=== PATIENT | female | born 1955 | race Caucasian/White ===

== ENCOUNTER 2020-03-28 12:12 | Inpatient (IN) | payer MEDICARE, OTHER, SELFPAY ==
[2020-03-28] VITALS (11 sets, daily range): BP systolic 97–129; BP diastolic 62–91; PULSE 71–134; RESP 17–23; TEMP 36.4–36.7; O2SAT 92–95; BMI 39.9
--- NOTE | ~2020-03-28 | CT_ITS ---
EXAMINATION: CTA chest PE protocol EXAM DATE: 03/28/2020 14:02 INDICATION: Pleuritic chest pain, atrial fibrillation with RVR. Breast cancer. TECHNIQUE: Spiral CTA of the chest (pulmonary arteries) was performed with 100 cc Omnipaque 350 intr avenous contrast injection. Images were acquired during the pulmonary arterial phase. Coronal maxi mum intensity projection 3D-reconstructions were created by the technologist on dedicated workstation . Axial, coronal and sagittal reformatted images were reviewed. The dose-length product (DLP) for t his examination was 853.54 mGy-cm. The exposure was tailored according to patient size (auto mA exp osure control), and iterative reconstruction (ASIR) was used as additional dose reduction technique. Comparison is made to prior examination from 06/05/2017. FINDINGS: Pulmonary arteries are well opacified and without intraluminal filling defects. No thora cic aortic dissection. The lungs are clear. Moderate size pericardial effusion. There is trace lef t pleural effusion. Some lingular, left lower lobe subsegmental atelectasis. No confluent consolidati on. Tracheobronchial tree is patent. There is no mediastinal, hilar or axillary lymphadenopathy. There is no pneumothorax. There is moderate cardiomegaly. There is mild coronary arterial calcific ation, arterial sclerosis. Mild splenic flexure colonic diverticulosis. Small amount of ascites. Ther e is a 7 mm sclerotic focus within the T6 vertebral body. There is a 4 mm sclerotic focus in the ster num. Sternal sclerotic focus appears unchanged compared to 2017, and the T6 focus is slightly larger, marianela uring 5 mm on prior study. No new sclerotic regions identified. Compared to 2017, the pericardial eff usion has developed. There is been significant improvement in bilateral dependent atelectasis. Ascite s has developed. IMPRESSION: 1. No pulmonary emboli. 2. Moderate cardiomegaly, moderate pericardial effusion. 3. Trace left pleural effusion and left basilar subsegmental atelectasis. 4. Two small osseous sclerotic foci, one unchanged and one slightly larger, probably bone islands. D ifficult to exclude slow-growing osteoblastic disease given history of breast cancer. Reviewed, dictated and finalized at location A. IMPRESSION: 1. No pulmonary emboli. 2. Moderate cardiomegaly, moderate pericardial effusion. 3. Trace left pleural effusion and left basilar subsegmental atelectasis. 4. Two small osseous sclerotic foci, one unchanged and one slightly larger, pr obably bone islands. Difficult to exclude slow-growing osteoblastic disease giv en history of breast cancer.
--- NOTE | ~2020-03-28 | XR_ITS ---
XR chest 2V DATE: 03/28/2020 12:44 INDICATION: Chest heaviness and pain. Atrial fibrillation. TECHNIQUE: PA and lateral views COMPARISON: 06/07/2017 PA and lateral chest FINDINGS: There is a globular enlarged cardiac silhouette suggesting cardiomyopathy/cardiomegaly; per icardial effusion is not excluded. There is aortic calcification and mild unfolding. No pulmonary infiltrate or consolidation or pleural effusion or pneumothorax is evident. Pulmonary va scularity appears borderline, with redistribution, suggesting mild pulmonary venous hypertension. The enlarged cardiac silhouette and the pulmonary vascular redistribution are new since 06/07/2017. Surgical clips overlie the right lower chest and right breast. Osteopenia is suggested. There is degenerative spurring of the thoracic and lumbar spine. IMPRESSION: Interval enlargement of the cardiac silhouette and pulmonary vascular distention suggesti ng cardiomegaly, mild congestive heart failure Pericardial effusion is not excluded Aortic atherosclerosis Reviewed, dictated and finalized at location B. IMPRESSION: Interval enlargement of the cardiac silhouette and pulmonary vascul ar distention suggesting cardiomegaly, mild congestive heart failure Pericardial effusion is not excluded Aortic atherosclerosis
--- NOTE | 2020-03-28 12:22 | ECG_ITS ---
Measurements Intervals [place] Rate: 128 P: DC: 0 QRS: -85 QRSD: 89 T: 65 QT: 287 QTc: 419 Interpretive Statements ATRIAL FIBRILLATION WITH RAPID VENTRICULAR RESPONSE VENTRICULAR PREMATURE COMPLEX LEFT AXIS DEVIATION LOW QRS VOLTAGE- DIFFUSE LEADS POOR R WAVE PROGRESSION, CONSIDER ANTERIOR INFARCT BORDERLINE T WAVE ABNORMALITY- HIGH LATERAL LEADS ABNORMAL ECG Electronically Signed On 03-28-2020 12:40:10 CDT by Gustavo Sousa D.O.
--- NOTE | 2020-03-28 12:27 | ED.ARRPALP ---
HPI - Arrhythmia/Palpitations General Chief Complaint: Arrhythmia/Palpitations Stated Complaint: new onset a-fib sent from cardiac rehab Time Seen by Provider: 03/28/20 12:27 Source: patient Mode of arrival: ambulatory Limitations: no limitations History of Present Illness HPI narrative: Patient is a 64-year-old female who presents for evaluation of palpitations. Patient reportedly was going to get a stress test this morning, and was found to be tachycardic, and atrial fibrillation at the time she was checked up to the monitor, so stress test did not proceed, and patient was sent to our emergency department for assessment. Patient has reported shortness of breath over the past week, left lower leg swelling, and a white chest pain in the center of her chest. She does report pain taking a deep breath. She denies fever or productive cough. No congestion, rhinorrhea, sore throat, loss of taste or sense of smell. Afebrile. 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 She states her primary care physician Dr. Song is who had arranged a stress test for her. Patient is not on any anticoagulation. Related Data Home Medications Medication Instructions Recorded Confirmed gabapentin 100 mg capsule 100 mg PO TID 01/10/20 01/10/20 sertraline 25 mg tablet 25 mg PO DAILY 01/10/20 01/10/20 Allergies Allergy/AdvReac Type Severity Reaction Status Date / Time lisinopril Allergy Unknown Hives Verified 03/28/20 12:32 Review of Systems Review of Systems: Narrative: CONSTITUTIONAL: Denies fever, chills, or sweats. EYES: Denies visual changes, redness, or discharge. ENT: Denies rhinorrhea, congestion, sore throat, or otalgia. CARDIOVASCULAR: Reports chest pain, palpitations, reports lower leg edema, left greater than right RESPIRATORY: Reports dry cough and shortness of breath GASTROINTESTINAL: Denies abdominal pain, nausea, vomiting, or diarrhea. GENITOURINARY: Denies dysuria or hematuria. SKIN: Denies rash or itching. MUSCULOSKELETAL: Denies back pain, joint pain, or myalgia. NEUROLOGIC: Denies headache, numbness, or weakness. [facility] Past Medical History Medical History Arthritis Cancer Depression Diabetes H/O thyroid disease Hypertension Obesity Surgical History Surgical History H/O lumpectomy right breast, 05/2009 H/O tubal ligation 06/1978 History of hip replacement right, 05/2017 Social History Social History Social History: 16.9 ounces of caffeine per day per demographic sheet Smoking packs per day: 2 Smoking cigarettes per day: 40.0 Years smoked: 20 Smoking pack-years: 40.00 Smoking status: Former smoker Second hand tobacco smoke exposure: Yes Smoking end date: 09/07/91 Alcohol intake: never Substance use: never Gender identity (if verbalized by the patient): Female Exam Narrative: Exam Narrative: GENERAL: Awake, alert, conversant HEAD: Normocephalic, atraumatic. EYES: PERRLA and EOMI. ENT: Nares clear, no rhinorrhea or epistaxis. Mucous membranes moist. NECK: Supple. CHEST: No respiratory distress, breathing even and non labored, crackles bilaterally HEART: Tachycardic rate, atrial fibrillation with RVR, irregular rhythm ABDOMEN: Obese, non distended, non tender EXTREMITIES: Normal range of motion. Pitting edema 2+ to the knee on the left, 1+ midshin on the right SKIN: Warm, dry, no rash. NEURO:No focal deficits. Alert and oriented x3 Course Vital Signs Vital signs: Vital Signs Temperature 36.7 C 03/28/20 12:16 Pulse Rate 122 H 03/28/20 12:16 Respiratory Rate 20 03/28/20 12:16 Blood Pressure 129/91 H 03/28/20 12:16 Pulse Oximetry 95 03/28/20 12:16 Temperature 36.7 C 03/28/20 12:16 Pulse Rate 107 H 03/28/20 14:45 Respiratory Rate 23 H 03/28/20 14:45 Blood Pressure 112/87 0
[2020-03-28] MEDS: ASPIRIN 81 MG CHEWABLE TABLET 324 MG PO (12:31)
[2020-03-28 12:43] LABS: Basophils Percent Auto 0.4 % (0.2-1.2); Eosinophils Absolute Auto 0.1 K/mm3 (0-0.3); Hemoglobin 13.4 g/dL (12.0-15.0); Immature Granulocyte Absolute 0.08 K/mm3 (0.00-0.031); Immature Granulocyte Percent A 0.8 % (0-0.5); Lymphocytes Absolute Auto 1.39 K/mm3 (0.9-3.2); Lymphocytes Percent Auto 13.8 % (18.3-44.2); Mean Corpuscular HGB Conc 31.2 g/dl (32-36); Mean Corpuscular Hemoglobin 30.5 pg (26-34); Mean Corpuscular Volume 97.9 fl (80-100); Mean Platelet Volume 10.8 fl (7.4-10.4); Monocytes Percent Auto 9.9 % (2.6-8.5); Neutrophils Absolute Auto 7.5 K/mm3 (1.3-6.7); Neutrophils Percent Auto 74.1 % (45.5-73.1); Platelet Count Result 157 k/mm3 (150-375); Red Blood Count 4.39 M/mm3 (4.2-5.4); Red Cell Distribution Width 12.8 % (11.5-14.5); White Blood Count 10.1 K/mm3 (4.5-10.0)
[2020-03-28 12:54] LABS: Anion Gap 14.2 mmol/L (7-16); Blood Urea Nitrogen 19 mg/dL (7-17); Calcium 8.6 mg/dL (8.4-10.2); Carbon Dioxide 20 mmol/L (22-30); Chloride 106 mmol/L (98-107); Estimated CRCL calculation 118 ml/min; Estimated Glomerular Filt Rate > 60; Glucose 169 mg/dL (65-105); Potassium 4.2 mmol/L (3.4-5.0); Sodium 136 mmol/L (137-145)
[2020-03-28 12:55] LABS: INR 1.2; Prothrombin Time 15.2 Seconds (11.1-14.7)
[2020-03-28 12:56] LABS: Partial Thromboplastin Time 25.1 SECONDS (22.3-36.8)
[2020-03-28 13:05] LABS: Troponin I 0.021 ng/mL (0.000-0.034)
[2020-03-28] MEDS: dilTIAZem HCl INJ 25 MG/5 ML VIAL 10 MG IV PUSH (14:10)
[2020-03-28] MEDS: FUROSEMIDE INJ 40 MG/4 ML VIAL 20 MG IV PUSH ×2 (15:08→18:05)
[2020-03-28 15:31] LABS: NT Pro B Type Natriuretic Pept 2210 PG/ML (5-100)
--- NOTE | 2020-03-28 15:42 | PM.CNCAR ---
Assessment and Plan Assessment and plan (1) Atrial fibrillation with rapid ventricular response: Code(s): I48.91 - Unspecified atrial fibrillation Status: Acute Assessment and Plan: uncertain length of duration but at least several weeks worth of atrial fibrillation and probably much longer. Will increase her diltiazem drip to 10 milligrams/hour. 2D echocardiogram Doppler will be ordered. I am going to also resume her metoprolol succinate 50 mg daily. Anticoagulation the form of enoxaparin 1 milligram/kilogram q.12 hours for now and transition to oral anticoagulation before discharge. Check a TSH and free T4 level (2) Hypertension associated with diabetes: Code(s): E11.59 - Type 2 diabetes mellitus with other circulatory complications; I10 - Essential (primary) hypertension Status: Acute (3) Hyperlipidemia associated with type 2 diabetes mellitus: Code(s): E11.69 - Type 2 diabetes mellitus with other specified complication; E78.5 - Hyperlipidemia, unspecified Status: Acute Assessment and Plan: Continue statin (4) CHF (congestive heart failure): Code(s): I50.9 - Heart failure, unspecified Status: Acute Assessment and Plan: uncertain etiology at this point. Possibly systolic and tachycardic induced versus Ischemic versus other. continue metoprolol, telmisartan. furosemide 40 mg IV x1 (5) MARIA LUISA (obstructive sleep apnea): Code(s): G47.33 - Obstructive sleep apnea (adult) (pediatric) Status: Acute Assessment and Plan: eventually needs treatment of her sleep apnea. This is highly important given her atrial fibrillation history History of Present Illness History of Present Illness Consult date/time: 03/28/20 15:42 Requesting physician: Karmen Hill MD Consult reason: atrial fibrillation Reason For Visit: A fib with rvr/heart failure Narrative: Date of service 03/28/2020 Reason for admission / consultation: Atrial fibrillation History: Patient is a 64-year-old female who came to the emergency room from our office today as she was found to be in atrial fibrillation with rapid ventricular response and she was being evaluated for a stress test. Over the past couple of weeks she has been progressively more short of breath. She thinks she has been quite short of breath since around March 10. She was treated with a combination of antibiotics, inhaler and did not have any improvement. Her symptoms have progressed to the point of shortness of breath with mild activity even walking around her house. She has also noticed some swelling in her feet over the past couple of months. Swelling in her feet is worse than the left leg rather than the right. She also has been having some paroxysmal nocturnal dyspnea. She has chest pain also she lays flat and she has a feeling of heaviness on her chest if she lays down flat on her back. This has been ongoing for the past couple of months. She therefore sleeps on her side. Sometimes she does feel heart pounding especially over the past couple of weeks if she is active. She has not passed out or had any presyncopal episodes. It is Review of Systems Review of Systems: All systems reviewed & are unremarkable except as noted in HPI and below Constitutional: Constitutional: Reports weakness Eyes: Eyes: Denies blurry vision ENT: Denies Normal hearing present Cardiovascular: Cardiovascular: Reports chest pain Respiratory: Respiratory: Reports dyspnea and Reports dyspnea on exertion Gastrointestinal: Gastrointestinal: Denies abdominal pain and Reports bloating Genitourinary: Genitourinary: Denies flank pain Musculoskeletal: Musculoskeletal: Denies back pain and Denies neck pain Integumentary/Breasts: Skin/Breast: Denies erythema and Denies rash Neurologic: Denies headache(s) and Denies numbness Psychiatric: Psychiatric: Denies anxiety and Denies confusion Endocrine: Endocrine: Denies fat
[2020-03-28 15:45] LABS: Troponin I 0.025 ng/mL (0.000-0.034)
--- NOTE | 2020-03-28 16:12 | ADMGEN ---
This patient, Karly Jon, was admitted to IMU Room 203-01. Patient/family oriented to hospital policies and general routines including ID bracelet, bed and alarms, visiting hours, pain management, procedures, bathroom and other care routines, personal items, smoking policy, room service/diet, and visiting hours. Valuables list has been completed. Information on how to activate the Rapid Response Team has been discussed. Patient/Family are encouraged to report perceived risks to care and to ask questions if they do not understand what they are told or what they should do.
[2020-03-28] MEDS: ENOXAPARIN 120 MG/0.8 ML SYRINGE 110 MG SUB-Q (18:05)
[2020-03-28 19:30] LABS: Troponin I 0.033 ng/mL (0.000-0.034)
--- NOTE | 2020-03-28 19:48 | PM.IMHP ---
H&P: HPI History of Present Illness Chief complaint: A fib with rvr/heart failure Narrative: This is a pleasant 64 year old morbidly obese Diabetic female with known hypothyroidism, previous breast cancer, and HTN who presented to the ER after being found to be tachycardic today during a nuclear stress test. She has had chest heaviness and worsening shortness of breath for over a month now. She has noticed intermittent increased LE swelling as well. Her PCP evluated her on March 16 and prescribed a Zpac for her at that time which did not relieve her symptoms. She denies any fevers, chills or significant coughing. The patient has no previous history of CAD or heart failure. She was evaluated in the ER today and found to be in rapid atrial fibrillation. Cardiology has been consulted and has intiated Cardizem IV for rate control. She was also treated with IV lasix in the ER tonight and CTA Chest was negative for any acute pulmonary embolism. Today she denies any heart palpitations but remarks she still has ongoing chest heaviness. She denies any previous history of arrhythmias and has never had a heart catheterization before. Tonight she also denies any nasuea, vomiting, abdominal pain, dysuria, hematuria, open wounds, rashes, diarrhea, rectal bleeding or focal neurological deficits. No other symptoms. Review of Systems Review of Systems: All systems reviewed & are unremarkable except as noted in HPI and below PMFSH Past Medical History Medical History (Updated 03/28/20 @ 20:10 by Carmelo Roldan MD) Arthritis Breast cancer Cancer Depression Diabetes H/O thyroid disease Hypertension Obesity MARIA LUISA (obstructive sleep apnea) Surgical History Surgical History H/O lumpectomy right breast, 05/2009 H/O tubal ligation 06/1978 History of hip replacement right, 05/2017 Family History Family History Father , 55 Family history of malignant neoplasm of stomach Alcoholic Type 2 diabetes mellitus with diabetic neuropathy, unspecified Mother , 74 Family history of congestive heart failure Type 2 diabetes mellitus with diabetic neuropathy, unspecified Sibling Congestive heart failure Sibling Brain tumor Blood clot in vein Diabetes mellitus type 2 with complications Other Cataracts, bilateral Cerebrovascular accident Depression Diabetes mellitus Family history of alcoholism Family history of allergic disorder Family history of coronary artery disease Family history of malignant neoplasm Hypertension Obesity Social History Social History Social History: 16.9 ounces of caffeine per day per demographic sheet Smoking packs per day: 2 Smoking cigarettes per day: 40.0 Years smoked: 20 Smoking pack-years: 40.00 Smoking status: Former smoker Tobacco type: cigarettes Second hand tobacco smoke exposure: Yes Smoking end date: 09/07/91 Alcohol intake: never Substance use: never Gender identity (if verbalized by the patient): Female Spiritual care concerns: No Meds Home Medications and Allergies Home Medications Medication Instructions Recorded Confirmed Type dulaglutide 1.5 mg/0.5 mL 1.5 mg SUB-Q WEEKLY 90 Days #6 ml 01/10/20 03/28/20 Rx subcutaneous pen injector gabapentin 100 mg capsule 100 mg PO TID 01/10/20 03/28/20 History glipizide 5 mg tablet 5 mg PO BID 90 Days #180 tablet 01/10/20 03/28/20 Rx metformin 1,000 mg tablet,extended 1,000 mg PO BID 90 Days #180 tablet 01/10/20 03/28/20 Rx release 24hr sertraline 25 mg tablet 25 mg PO DAILY 01/10/20 03/28/20 History aspirin 81 mg tablet,delayed 81 mg PO DAILY #90 tablet 01/11/20 03/28/20 Rx release atorvastatin 20 mg tablet 20 mg PO QPM #90 tablet 01/11/20 03/28/20 Rx celecoxib 200 mg capsule 200 mg PO DAILY #90 cap 01/11/20 03/28/20 Rx levo
[2020-03-28 21:23] LABS: Glucose Point of Care 158 (65-105)
[2020-03-29] VITALS (21 sets, daily range): BP systolic 86–125; BP diastolic 65–87; PULSE 88–110; RESP 18–24; TEMP 36.2–36.8; O2SAT 92–95
--- NOTE | 2020-03-29 | ECHO_ITS ---
Patient Info Name: Karly Jon Age: 64 years : 1955 Gender: Female Ht: 65 in Wt: 250 lbs BSA: 2.34 m2 HR: 115 bpm BP: 125 / 68 mmHg Heart Rhythm: Atrial Fibrillation Technical Quality: Fair Exam Date: 03/29/2020 9:34 AM Exam Location: [facility] Patient Status: Inpatient Admit Date: 03/29/2020 Staff Ordering Physician: Richard Collier MD Inspector Soldering: Alexandre Dawn RDCS Attending Provider: Kristen Fernandes MD Referring Physician: Nando YANES; Exam Type: CA echo dop color flow w con Study Info Indications I48.1 - Persistent atrial fibrillation Complete two-dimensional, color flow and Doppler transthoracic echocardiogram is performed with contrast to opacify the left ventricle and to improve the deliniation of the left ventricle endocardial borders. Contrast/Agitated Saline Contrast/Ag. Saline: Definity Amount: 2.00 ml Administered By: Doris Coats RN Existing IV Access: Yes History/Risk Factors Atrial fibrillation; HTN, DM, CHF, edema, PND. Summary 1. Left ventricular chamber dimension is moderately enlarged. 2. Left ventricular systolic function is severely reduced, estimated at 15-20%. 3. There is no increased left ventricular wall thickness. 4. The left ventricular diastolic function is indeterminate. 5. Right ventricular chamber dimension is mildly enlarged. 6. Right ventricular systolic function is reduced. 7. Left atrial chamber dimension is moderately enlarged. 8. Right atrial chamber dimension is mildly enlarged. 9. There is moderate mitral valve regurgitation. 10. There is mild tricuspid valve regurgitation. 11. Mild pulmonary hypertension, estimated pulmonary arterial systolic pressure is 38 mmHg. 12. There is small pericardial effusion. Left Ventricle Left ventricular chamber dimension is moderately enlarged. Left ventricular systolic function is severely reduced, estimated at 15-20%. There is no increased left ventricular wall thickness. The left ventricular diastolic function is indeterminate. Right Ventricle Right ventricular chamber dimension is mildly enlarged. Right ventricular systolic function is reduced. Left Atria Left atrial chamber dimension is moderately enlarged. Right Atria Right atrial chamber dimension is mildly enlarged. Atrial Septum Intact interatrial septum visualized by color flow imaging. Aortic Valve The aortic valve is trileaflet. There is mild aortic valve sclerosis. There is no aortic valve stenosis. There is trace aortic valve regurgitation. Pulmonic Valve The pulmonic valve is normal. There is no pulmonic valve stenosis. There is trace pulmonic regurgitation. Mitral Valve The mitral valve has normal leaflets. There is no mitral valve stenosis. There is moderate mitral valve regurgitation. Tricuspid Valve The tricuspid valve leaflets are normal. There is no significant tricuspid valve stenosis. There is mild tricuspid valve regurgitation. Mild pulmonary hypertension, estimated pulmonary arterial systolic pressure is 38 mmHg. Pericardium/Pleural The pericardium appears normal. There is small pericardial effusion. Aorta The aortic root size at the sinus of Valsalva is normal. The prox ascending aorta size is normal. Left Ventricular Outflow Tract Name Value Normal
[2020-03-29 05:06] LABS: Basophils Absolute Auto 0.1 K/mm3 (0.0-0.1); Basophils Percent Auto 0.6 % (0.2-1.2); Eosinophils Absolute Auto 0.1 K/mm3 (0-0.3); Eosinophils Percent Auto 1.5 % (0-4.4); Hematocrit 40.6 % (37.0-47.0); Hemoglobin 12.5 g/dL (12.0-15.0); Immature Granulocyte Absolute 0.04 K/mm3 (0.00-0.031); Immature Granulocyte Percent A 0.5 % (0-0.5); Lymphocytes Absolute Auto 1.35 K/mm3 (0.9-3.2); Lymphocytes Percent Auto 16.9 % (18.3-44.2); Mean Corpuscular HGB Conc 30.8 g/dl (32-36); Mean Corpuscular Volume 97.4 fl (80-100); Mean Platelet Volume 10.8 fl (7.4-10.4); Monocytes Percent Auto 12.9 % (2.6-8.5); Neutrophils Absolute Auto 5.4 K/mm3 (1.3-6.7); Neutrophils Percent Auto 67.6 % (45.5-73.1); Platelet Count Result 144 k/mm3 (150-375); Red Blood Count 4.17 M/mm3 (4.2-5.4); Red Cell Distribution Width 12.7 % (11.5-14.5)
[2020-03-29 05:12] LABS: Anion Gap 12.7 mmol/L (7-16); Blood Urea Nitrogen 17 mg/dL (7-17); Calcium 8.4 mg/dL (8.4-10.2); Carbon Dioxide 23 mmol/L (22-30); Chloride 105 mmol/L (98-107); Estimated CRCL calculation 101 ml/min; Estimated Glomerular Filt Rate > 60; Glucose 130 mg/dL (65-105); Potassium 3.7 mmol/L (3.4-5.0); Sodium 137 mmol/L (137-145)
[2020-03-29] MEDS: ENOXAPARIN 120 MG/0.8 ML SYRINGE 110 MG SUB-Q ×2 (06:27→18:26)
[2020-03-29] MEDS: LEVOTHYROXINE SODIUM 112 MCG TABLET PO (06:27)
[2020-03-29] MEDS: PANTOPRAZOLE SOD SESQUIHYDRATE 20 MG TAB PO (08:41)
[2020-03-29] MEDS: GABAPENTIN 100 MG CAPSULE PO ×3 (08:41→18:26)
[2020-03-29] MEDS: TELMISARTAN 40 MG TABLET PO (08:42)
[2020-03-29] MEDS: METOPROLOL SUCCINATE EXT REL 50 MG TABCR PO (08:42)
[2020-03-29] MEDS: glipiZIDE 5 MG TABLET PO ×2 (08:42→18:26)
[2020-03-29] MEDS: SERTRALINE HCL 25 MG TABLET PO (08:42)
[2020-03-29] MEDS: ASPIRIN 81 MG ENTERIC TABLET PO (08:42)
[2020-03-29] MEDS: metFORMIN HCL XR 500 MG TAB.SR.24H 1000 MG PO ×2 (08:42→18:25)
[2020-03-29 09:05] LABS: Glucose Point of Care 152 (65-105)
--- NOTE | 2020-03-29 09:05 | PM.PNCARD ---
Progress Note: A&P Assessment and Plan (1) Atrial fibrillation with rapid ventricular response: Code(s): I48.91 - Unspecified atrial fibrillation Status: Acute Assessment and Plan: Extra dose of metoprolol succinate 50 mg p.o. x1 now. Discontinue diltiazem drip. Await echocardiogram results and make further decision regarding ischemic workup based upon those findings. (2) Hypertension associated with diabetes: Code(s): E11.59 - Type 2 diabetes mellitus with other circulatory complications; I10 - Essential (primary) hypertension Status: Acute (3) Hyperlipidemia associated with type 2 diabetes mellitus: Code(s): E11.69 - Type 2 diabetes mellitus with other specified complication; E78.5 - Hyperlipidemia, unspecified Status: Acute Assessment and Plan: Continue statin (4) CHF (congestive heart failure): Qualifiers: Heart failure chronicity: acute Heart failure type: unspecified Qualified Code(s): I50.9 - Heart failure, unspecified Code(s): I50.9 - Heart failure, unspecified Status: Acute Assessment and Plan: uncertain etiology at this point. Systolic, acute continue metoprolol, telmisartan. additional furosemide 40 mg IV x1 (5) MARIA LUISA (obstructive sleep apnea): Code(s): G47.33 - Obstructive sleep apnea (adult) (pediatric) Status: Chronic Assessment and Plan: eventually needs treatment of her sleep apnea. This is highly important given her atrial fibrillation history will consult Dr. Narvaez Subjective Date/time seen: 03/29/20 09:05 Interval history: reason for admission: congestive heart failure , AFib Date of service 03/29/2020: She is feeling better. She is less short of breath. Heart rate is better controlled but still elevated. No chest pain. Review of Systems Review of Systems: All systems reviewed & are unremarkable except as noted in HPI and below Constitutional: Constitutional: Denies fatigue, Denies headache(s) and Reports weakness Eyes: Eyes: Denies blurry vision ENT: Denies Normal hearing present, Denies headache(s) and Denies neck pain Cardiovascular: Cardiovascular: Reports chest pain, Reports dyspnea and Reports dyspnea on exertion Respiratory: Respiratory: Reports dyspnea and Reports dyspnea on exertion Gastrointestinal: Gastrointestinal: Denies abdominal pain and Reports bloating Genitourinary: Genitourinary: Denies flank pain Musculoskeletal: Musculoskeletal: Denies back pain, Denies neck pain and Denies numbness Integumentary/Breasts: Skin/Breast: Denies erythema and Denies rash Neurologic: Denies Normal hearing present, Denies confusion, Denies headache(s), Denies numbness and Reports weakness Psychiatric: Psychiatric: Denies anxiety and Denies confusion Endocrine: Endocrine: Denies fatigue and Denies flushing Hematologic/Lymphatic: Hematologic/Lymphatic: Denies easy bleeding Allergic/Immunologic: Allergic/Immunologic: Denies GI upset with certain foods Exam Narrative: Exam Narrative: very pleasant awake alert appears to be in no acute distress Const: General: no acute distress; No confusion Orientation/consciousness: No confusion HENMT: General nose exam: no epistaxis Eyes: Sclera: sclerae normal Neck: Neck: supple and no JVD Chest: Other: no reproducible chest wall pain to palpation Resp: Auscultation: diminished lung sounds Cardio: Rate: tachycardic Rhythm: abnormal rhythm irregularly irregular Skin: General skin exam: normal color Neuro: General: No confusion Cranial nerves: No Normal hearing present Cognition (Neuro): normal cognition Speech: normal speech Extrem: General: edema ( mild) bilateral Psych: Mental Status: mental status grossly normal Objective Data Vital Signs Vital Signs: Vital Signs - 24 hr 03/28/20 12:16 03/28/20 13:17 03/28/20 14:11 Temperature 36.7 C Pulse Rate 122 H 134 H 125 H Respiratory Rate 20 17 Blood Pr
[2020-03-29] MEDS: PERFLUTREN LIPID MICROSPHERES 1.5 ML VIAL DILUTED TO 10 ML TOTAL VOLUME IV PUSH (10:15)
[2020-03-29] MEDS: POTASSIUM CHLORIDE 20 MEQ TABLET 40 MEQ PO (10:58)
[2020-03-29] MEDS: FUROSEMIDE INJ 40 MG/4 ML VIAL IV PUSH (10:59)
[2020-03-29] MEDS: METOPROLOL TARTRATE 25 MG TABLET PO (10:59)
--- NOTE | 2020-03-29 11:31 | PHAR ---
The patient's home med of Trulicity 1.5mg/0.5ml has been verified.
[2020-03-29 12:10] LABS: Glucose Point of Care 187 (65-105)
--- NOTE | 2020-03-29 14:24 | PM.IMPN ---
Progress Note: A&P Assessment and Plan (1) Atrial fibrillation with rapid ventricular response: Code(s): I48.91 - Unspecified atrial fibrillation Status: Acute Assessment and Plan: CHADS-VASc score 5 - May be secondary to acute mild CHF exacerbation, heart disease, long standing HTN, recent ZPAC which is known to cause arrhythmias? among other causes. The patient was initially started on an IV cardizem for rate control and Cardiology discontinued that this morning and started her on metoprolol succinate 50 mg in the morning. She has already been anticoagulated with therapeutic Lovenox. TSH was within normal limits but T4 was slightly elevated 11.4. Most likely secondary to sick euthyroid syndrome Echocardiogram was ordered and pending. Cardiology was consulted and are waiting on the echocardiogram results and then will decide if she needs further ischemic workup at this time. Continue monitoring the patient's symptoms and cardiology's input is greatly appreciated. (2) Chest pain: Qualifiers: Chest pain type: unspecified Qualified Code(s): R07.9 - Chest pain, unspecified Code(s): R07.9 - Chest pain, unspecified Status: Acute Assessment and Plan: r/o stable angina vs. ACS troponins were slightly elevating but remained within normal limits due to patient's intermittent chest tightness and symptoms cardiology was consulted cardiology is waiting for her echocardiogram to be completed and then will decide further ischemic workup is needed at this time. Continue monitoring for any chest pain and I appreciate cardiology's input (3) CHF (congestive heart failure): Qualifiers: Heart failure chronicity: acute Heart failure type: unspecified Qualified Code(s): I50.9 - Heart failure, unspecified Code(s): I50.9 - Heart failure, unspecified Status: Acute Assessment and Plan: r/o mild CHF exacerbation due to her leg swelling, abdominal distension. Pending echocardiogram results for heart function. Continue Lasix therapy. TSH was normal. Continue on Sodium prudent fluid restricted diet. continue monitoring the patient's symptoms and fluid status.Is and Os, daily weights. (4) Type 2 diabetes mellitus with hyperglycemia: Qualifiers: Diabetes mellitus chcf insulin use: without wreath machine tender use Qualified Code(s): E11.65 - Type 2 diabetes mellitus with hyperglycemia Code(s): E11.65 - Type 2 diabetes mellitus with hyperglycemia Status: Chronic Assessment and Plan: serum glucose this morning was 130 which is just slightly elevated. Resume home oral hypoglycemic agents. will check a hemoglobin A1c in the morning. Continue monitoring Accuchecks, SSI coverage, hypoglycemic protocol. (5) Hypothyroidism (acquired): Code(s): E03.9 - Hypothyroidism, unspecified Status: Chronic Assessment and Plan: she has a history of hyperthyroidism and underwent treatment and now she is on levothyroxine for the rest or life. TSH with reflex was normal. Continue Levothyroxine. (6) HLD (hyperlipidemia): Qualifiers: Hyperlipidemia type: mixed hyperlipidemia Qualified Code(s): E78.2 - Mixed hyperlipidemia Code(s): E78.5 - Hyperlipidemia, unspecified Status: Chronic Assessment and Plan: Will check fasting lipid panel in the morning. Continue Atorvastatin. (7) HTN (hypertension): Qualifiers: Hypertension type: essential hypertension Qualified Code(s): I10 - Essential (primary) hypertension Code(s): I10 - Essential (primary) hypertension Status: Chronic Assessment and Plan: Her blood pressure has b
[2020-03-29 17:07] LABS: Glucose Point of Care 140 (65-105)
[2020-03-29] MEDS: ATORVASTATIN 20 MG TABLET PO (18:25)
[2020-03-29 20:47] LABS: Glucose Point of Care 183 (65-105)
--- NOTE | 2020-03-29 22:45 | PCRCNOTE ---
APNEA LINK WAS HELD DUE TO PT SCHEDULED FOR CCL TOMORROW. APNEA LINK WILL BE COMPLETED ONCE PT IS STABLE. DISCUSSED THIS PLAN WITH KATIA DUONG.
[2020-03-30] VITALS (23 sets, daily range): BP systolic 87–117; BP diastolic 44–76; PULSE 94–114; RESP 18–23; TEMP 35.8–36.8; O2SAT 92–98
[2020-03-30] MEDS: NITROGLYCERIN OINTMENT 1 INCH DOSE 0.5 INCH TRANSDERM ×2 (00:06→06:15)
[2020-03-30] MEDS: ACETAMINOPHEN 325 MG TABLET 650 MG PO (00:08)
[2020-03-30 05:22] LABS: Anion Gap 15.2 mmol/L (7-16); Blood Urea Nitrogen 23 mg/dL (7-17); Calcium 8.9 mg/dL (8.4-10.2); Carbon Dioxide 22 mmol/L (22-30); Chloride 105 mmol/L (98-107); Cholesterol 81 mg/dL (0-200); Estimated CRCL calculation 91 ml/min; Estimated Glomerular Filt Rate > 60; Glucose 109 mg/dL (65-105); HDL Direct 29 mg/dL; Potassium 4.2 mmol/L (3.4-5.0); Sodium 138 mmol/L (137-145); Triglycerides 109 mg/dL (<150)
[2020-03-30 05:23] LABS: Hemoglobin A1C 7.5 % (<5.7)
[2020-03-30 05:33] LABS: LDL Cholesterol Direct 36 mg/dL
[2020-03-30] MEDS: LEVOTHYROXINE SODIUM 112 MCG TABLET PO (06:15)
[2020-03-30 08:45] LABS: Glucose Point of Care 91 (65-105)
[2020-03-30] MEDS: PANTOPRAZOLE SOD SESQUIHYDRATE 20 MG TAB PO (08:50)
[2020-03-30] MEDS: SERTRALINE HCL 25 MG TABLET PO (08:50)
[2020-03-30] MEDS: GABAPENTIN 100 MG CAPSULE PO ×2 (08:50→18:04)
--- NOTE | 2020-03-30 11:37 | PM.IMPN ---
Progress Note: A&P Assessment and Plan (1) Atrial fibrillation with rapid ventricular response: Code(s): I48.91 - Unspecified atrial fibrillation Status: Acute Assessment and Plan: CHADS-VASc score 5 - May be secondary to acute mild CHF exacerbation, heart disease, long standing HTN, recent ZPAC which is known to cause arrhythmias? among other causes. The patient was initially started on an IV cardizem for rate control and Cardiology discontinued that this morning and started her on metoprolol succinate 50 mg in the morning. She has already been anticoagulated with therapeutic Lovenox. TSH was within normal limits but T4 was slightly elevated 11.4. Most likely secondary to sick euthyroid syndrome Echocardiogram was ordered and showed she has a severely reduced EF of 15-20%. and reduced RV systolic function. Cardiology has plans to have a cardiac catheterization completed at 1:00 p.m. today for further evaluate for ischemic workup Continue monitoring the patient's symptoms and cardiology's input is greatly appreciated. (2) Chest pain: Qualifiers: Chest pain type: unspecified Qualified Code(s): R07.9 - Chest pain, unspecified Code(s): R07.9 - Chest pain, unspecified Status: Acute Assessment and Plan: r/o stable angina vs. ACS troponins were slightly elevating but remained within normal limits due to patient's intermittent chest tightness and symptoms cardiology was consulted cardiology was applying nitro paste every 6 hours in she has not had any more chest pain since yesterday afternoon. She is undergoing a cardiac catheterization this afternoon. Continue monitoring for any chest pain and I appreciate cardiology's input (3) CHF (congestive heart failure): Qualifiers: Heart failure type: unspecified Heart failure chronicity: acute Qualified Code(s): I50.9 - Heart failure, unspecified Code(s): I50.9 - Heart failure, unspecified Status: Acute Assessment and Plan: r/o mild CHF exacerbation due to her leg swelling, abdominal distension. Echo shows she has systolic congestive heart failure and is an acute exacerbation of that which is improved after Lasix. Continue Lasix therapy As per cardiology. TSH was normal. Continue on Sodium prudent fluid restricted diet. continue monitoring the patient's symptoms and fluid status.Is and Os, daily weights. (4) Type 2 diabetes mellitus with hyperglycemia: Qualifiers: Diabetes mellitus body fitter insulin use: without body fitter use Qualified Code(s): E11.65 - Type 2 diabetes mellitus with hyperglycemia Code(s): E11.65 - Type 2 diabetes mellitus with hyperglycemia Status: Chronic Assessment and Plan: serum glucose this morning was 91 which is just slightly elevated. Resume home oral hypoglycemic agents. Hemoglobin A1c is 7.5% Continue monitoring Accuchecks, SSI coverage, hypoglycemic protocol. (5) Hypothyroidism (acquired): Code(s): E03.9 - Hypothyroidism, unspecified Status: Chronic Assessment and Plan: she has a history of hyperthyroidism and underwent treatment and now she is on levothyroxine for the rest or life. TSH with reflex was normal. Continue Levothyroxine. (6) HLD (hyperlipidemia): Qualifiers: Hyperlipidemia type: mixed hyperlipidemia Qualified Code(s): E78.2 - Mixed hyperlipidemia Code(s): E78.5 - Hyperlipidemia, unspecified Status: Chronic Assessment and Plan: Will check fasting lipid panel in the morning. Continue Atorvastatin. (7) HTN (hypertension): Qualifiers: Hyperten
--- NOTE | 2020-03-30 11:58 | WPDMODSED ---
Moderate Sedation Note-Pt Data Patient Data Diagnosis: atrial fibrillation of unknown chronicity left ventricular systolic dysfunction Present Complaint: dyspnea Procedure to be performed/Plan: left heart catheterization Allergies Allergy/AdvReac Type Severity Reaction Status Date / Time lisinopril Allergy Unknown Hives Verified 03/28/20 12:32 Home Medications Medication Instructions Recorded Confirmed Type dulaglutide 1.5 mg/0.5 mL 1.5 mg SUB-Q WEEKLY 90 Days #6 ml 01/10/20 03/28/20 Rx subcutaneous pen injector gabapentin 100 mg capsule 100 mg PO TID 01/10/20 03/28/20 History glipizide 5 mg tablet 5 mg PO BID 90 Days #180 tablet 01/10/20 03/28/20 Rx metformin 1,000 mg tablet,extended 1,000 mg PO BID 90 Days #180 tablet 01/10/20 03/28/20 Rx release 24hr sertraline 25 mg tablet 25 mg PO DAILY 01/10/20 03/28/20 History aspirin 81 mg tablet,delayed 81 mg PO DAILY #90 tablet 01/11/20 03/28/20 Rx release atorvastatin 20 mg tablet 20 mg PO QPM #90 tablet 01/11/20 03/28/20 Rx celecoxib 200 mg capsule 200 mg PO DAILY #90 cap 01/11/20 03/28/20 Rx levothyroxine 112 mcg tablet 112 mcg PO QPM #90 tablet 01/11/20 03/28/20 Rx metoprolol succinate 50 mg 50 mg PO DAILY #90 tablet 01/11/20 03/28/20 Rx tablet,extended release 24 hr pantoprazole 20 mg tablet,delayed 20 mg PO QAM #90 tablet 01/11/20 03/28/20 Rx release telmisartan 40 mg tablet 40 mg PO DAILY #90 tablet 03/16/20 03/28/20 Rx albuterol sulfate [ProAir HFA] 1 - 2 puff INHALATION Q4-6H PRN 03/28/20 03/28/20 History Current Medications: Active Medications Acetaminophen (Tylenol Tablet) 650 mg PO Q4H PRN PRN Reason: Mild Pain (1-3) or Fever Last Admin: 03/30/20 00:08 Dose: 650 mg Documented by: Atorvastatin Calcium (Lipitor) 20 mg PO QPM ZAID Last Admin: 03/29/20 18:25 Dose: 20 mg Documented by: Calcium Carbonate (Tums) 200 mg PO Q6H PRN PRN Reason: Indigestion Dextrose (Dextrose 50% Syringe) 12.5 gm IV PUSH PRN PRN; Protocol PRN Reason: Hypoglycemia Gabapentin (Neurontin) 100 mg PO TID [facility] Last Admin: 03/30/20 08:50 Dose: 100 mg Documented by: Glipizide (Glucotrol) 5 mg PO BID [facility] Last Admin: 03/30/20 08:45 Dose: Not Given Documented by: Glucagon (Glucagon For Inj) 1 mg IM PRN PRN; Protocol PRN Reason: Hypoglycemia Glucose (Glutose 15) 15 gm PO PRN PRN; Protocol PRN Reason: Hypoglycemia Dextrose (Dextrose 5% 1,000 Ml) 1,000 mls @ 100 mls/hr IVPB PRN PRN; Protocol PRN Reason: Hypoglycemia Insulin Aspart (Novolog) 3 - 6 units SUB-Q TIDWM [facility]; Protocol Last Admin: 03/30/20 08:45 Dose: Not Given Documented by: Levalbuterol HCl (Xopenex 1.25 Mg/0.5 Ml) 1.25 mg INHALATION Q6HRT PRN PRN Reason: shortness of breath Levothyroxine Sodium (Synthroid) 112 mcg PO DAILY@0630 [facility] Last Admin: 03/30/20 06:15 Dose: 112 mcg Documented by: Metformin HCl (Glucophage Xr) 1,000 mg PO BID [facility] Last Admin: 03/30/20 08:45 Dose: Not Given Documented by: Metoprolol Succinate (Toprol Xl) 50 mg PO [facility] Last Admin: 03/30/20 10:32 Dose: Not Given Documented by: Nitroglycerin (Nitroglycerin Oint 1 Inch) 0.5 inch TRANSDERM Q6HR [facility] Last Admin: 03/30/20 06:15 Dose: 0.5 inch Documented by: Ondansetron HCl (Zofran Inj) 4 mg IV PUSH Q4H PRN PRN Reason: Nausea Pantoprazole Sodium (Protonix) 20 mg PO QAM [facility] Last Admin: 03/30/20 08:50 Dose: 20 mg Documented by: Sertraline HCl (Zoloft) 25 mg PO DAILY [facility] Last Admin: 03/30/20 08:50 Dose: 25 mg Documented by: Telmisartan (Micardis) 40 mg PO DAILY [facility] Last Admin: 03/30/20 08:47 Dose: Not Given Documented by: Sedation/Anesthesia: No previous sedation/anesthesia problems (including family history). PMF Past Medical History Medical History (Updated 03/29/20 @ 16:09 by Mandy Acosta PA-C) Arthritis Breast cancer Cancer Depression Diabetes H/O thyroid disease Hypertension Obesity MARIA LUISA (obstructive sleep apnea) Surgical History Surgical History (Reviewe
--- NOTE | 2020-03-30 12:20 | PC.NURSE ---
Patient to cardiac slab worker via stretcher.
--- NOTE | 2020-03-30 13:02 | WPDCARDPROC ---
Cardiac Cath Procedure Note Date of procedure:: 03/30/20 Performing physician:: Aba Aleman MD Indication:: Left ventricular systolic dysfunction Brief clinical history:: this is a 64-year-old woman admitted with decompensated heart failure. She has been found to have atrial fibrillation of unknown chronicity and significant left ventricular systolic dysfunction. To rule out ischemic disease this exam has been recommended. Procedure Procedure performed:: Left heart catheterization with left ventriculography and coronary angiography Sedation/Medication given:: sedation not provided because of low systolic blood pressure and low cardiac output Access site:: right femoral artery Estimated blood loss:: 15-20 cc Procedure note:: patient was brought to the cardiac catheterization lab where the right femoral triangle was prepared and draped in the normal fashion anesthesia was provided with 1% lidocaine infiltrated locally. Using the modified Seldinger technique a 5 Singaporean sheath was placed into the right common femoral artery. After this left heart catheterization was performed. A 5 Singaporean angled pigtail catheter was used to document left-sided hemodynamics and to injected LV g in the are AO projection. Pullback pressures were measured across the aortic valve. Following this the left coronary artery was engaged and injected using a standard 5 Singaporean FL4 catheter. The right coronary artery was engaged and injected using a standard 5 Singaporean JR4 catheter. The cine angiograms were then reviewed and the case was terminated. Because of a low cardiac output state I did not believe an Angio-Seal device was prudent. She was taken to the holding area for manual sheath removal there was no sign of any complication and she left the dental laboratory technician with no evidence of a groin hematoma. Findings:: Hemodynamics: Central aortic pressure 105/75 left ventricle 105/13 end-diastolic 27. No gradient upon pullback across the aortic valve. Left ventricle: The LV is massively dilated there is profound global systolic hypocontractility the ejection fraction are visually estimated to be 15% the left main coronary is widely patent the left anterior descending is a large caliber vessel extending down to and just around the apex. The LAD and its diagonal and septal branches are angiographically unremarkable. The circumflex is a moderate caliber vessel giving rise to the marginal branches and is smooth and angiographically unremarkable. Right coronary artery is moderate caliber dominant to the posterior circulation. The RCA is smooth and angiographically normal in appearance. Conclusion:: 1. Right coronary dominant circulation with no evidence of coronary disease 2. left ventricular dilation with profound systolic dysfunction. 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 Aba Aleman MD [facility]
--- NOTE | 2020-03-30 15:25 | PC.NURSE ---
Patient returned to room following cardiac cath. Report received from AD George.
[2020-03-30 15:29] LABS: Glucose Point of Care 86 (65-105)
[2020-03-30] MEDS: SODIUM CHLORIDE 0.9% IV 1,000 ML 125 ML IV CONT (15:42)
[2020-03-30] MEDS: ATORVASTATIN 20 MG TABLET PO (18:04)
[2020-03-30 20:44] LABS: Glucose Point of Care 98 (65-105)
[2020-03-31] VITALS (16 sets, daily range): BP systolic 88–110; BP diastolic 43–68; PULSE 61–136; RESP 16–22; TEMP 35.7–37.5; O2SAT 94–98
[2020-03-31] MEDS: ACETAMINOPHEN 325 MG TABLET 650 MG PO (01:38)
--- NOTE | 2020-03-31 01:42 | PC.NURSE ---
Patient c/o pain to rt. groin area. Dsg to cath site is dry and intact. No sig change to rt upper thigh bruising. Bruise is soft, no hematoma. Tylenol 650mg PO given for pain. Will follow closely.
[2020-03-31 04:57] LABS: Blood Urea Nitrogen 15 mg/dL (7-17); Calcium 8.3 mg/dL (8.4-10.2); Carbon Dioxide 24 mmol/L (22-30); Chloride 107 mmol/L (98-107); Estimated CRCL calculation 104 ml/min; Estimated Glomerular Filt Rate > 60; Glucose 145 mg/dL (65-105); Sodium 138 mmol/L (137-145)
[2020-03-31] MEDS: LEVOTHYROXINE SODIUM 112 MCG TABLET PO (05:42)
[2020-03-31] MEDS: GABAPENTIN 100 MG CAPSULE PO ×3 (07:51→17:18)
[2020-03-31] MEDS: metFORMIN HCL XR 500 MG TAB.SR.24H 1000 MG PO ×2 (07:51→17:18)
[2020-03-31] MEDS: glipiZIDE 5 MG TABLET PO ×2 (07:51→17:18)
[2020-03-31] MEDS: METOPROLOL SUCCINATE EXT REL 50 MG TABCR PO (07:52)
[2020-03-31] MEDS: PANTOPRAZOLE SOD SESQUIHYDRATE 20 MG TAB PO (07:52)
[2020-03-31] MEDS: SACUBITRIL/VALSARTAN 12-13 MG TABLET 1 TAB PO ×2 (07:52→21:57)
[2020-03-31] MEDS: SERTRALINE HCL 25 MG TABLET PO (07:53)
[2020-03-31 08:25] LABS: Glucose Point of Care 134 (65-105)
[2020-03-31 12:11] LABS: Glucose Point of Care 210 (65-105)
[2020-03-31] MEDS: INSULIN ASPART (*BKC) 100 UNITS/ML SUB-Q (12:28)
--- NOTE | 2020-03-31 13:36 | PM.PNCARD ---
Progress Note: A&P Assessment and Plan (1) Atrial fibrillation with rapid ventricular response: Code(s): I48.91 - Unspecified atrial fibrillation Status: Acute Assessment and Plan: Severe LV systolic dysfunction nonischemic etiology. Diuresis as tolerated. Patient nearing euvolemia. Continue Entresto, beta willam. Heart rate control initially, however, rhythm control with HATTIE guided cardioversion advised. Given hematoma post cardiac catheterization systemic anticoagulation is yet to be initiated. plan for tomorrow if stable H&H and exam findings. Will aim for HATTIE guided cardioversion on Thursday to restore sinus rhythm. Discussed amiodarone if hypotension prevents adequate heart rate control and/or failed cardioversion. Would avoid unless absolutely necessary at this time given risk for chemical cardioversion and embolic stroke. patient verbalized understanding of the above recommendations. All questions answered to her satisfaction. Further recommendations to follow. (2) Hypertension associated with diabetes: Code(s): E11.59 - Type 2 diabetes mellitus with other circulatory complications; I10 - Essential (primary) hypertension Status: Acute Assessment and Plan: Per primary service. Relative hypotension. 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 continue metoprolol. Entresto new issue this morning. Monitor tolerance. Telmisartan discontinued yesterday. (5) MARIA LUISA (obstructive sleep apnea): Code(s): G47.33 - Obstructive sleep apnea (adult) (pediatric) Status: Chronic Assessment and Plan: eventually needs treatment of her sleep apnea. This is highly important given her atrial fibrillation history Subjective Date/time seen: Date of service:03/31/20 13:36 Interval history: reason for admission/Follow-up:congestive heart failure , AFib Date of service 03/31/2020: She is feeling better but still fatigued and short of breath with activity. denies significant dizziness but admits to feeling weak. No chest pain. No some soreness in leg after hematoma from left heart catheterization. Remains in atrial fibrillation with rapid ventricular response heart rate generally low 100s-110s, SBP 80's-90's, however. No chest pain. Review of Systems Review of Systems: All systems reviewed & are unremarkable except as noted in HPI and below Constitutional: Constitutional: Reports as per HPI, Denies fatigue, Denies headache(s) and Reports weakness Eyes: Eyes: Reports as per HPI and Denies blurry vision ENT: Reports as per HPI, Denies Normal hearing present, Denies headache(s) and Denies neck pain Cardiovascular: Cardiovascular: Reports as per HPI, Denies chest pain, Reports dyspnea and Reports dyspnea on exertion Respiratory: Respiratory: Reports as per HPI, Reports dyspnea and Reports dyspnea on exertion Gastrointestinal: Gastrointestinal: Reports as per HPI, Denies abdominal pain and Reports bloating Genitourinary: Genitourinary: Reports as per HPI and Denies flank pain Musculoskeletal: Musculoskeletal: Reports as per HPI, Denies back pain, Denies neck pain and Denies numbness Integumentary/Breasts: Skin/Breast: Reports as per HPI, Reports erythema, Denies rash and Reports unusual bruising Neurologic: Reports as per HPI, D
--- NOTE | 2020-03-31 16:55 | PM.IMPN ---
Progress Note: A&P Assessment and Plan (1) Atrial fibrillation with rapid ventricular response: Code(s): I48.91 - Unspecified atrial fibrillation Status: Acute Assessment and Plan: CHADS-VASc score 5 - May be secondary to acute mild CHF exacerbation, heart disease, long standing HTN, recent ZPAC which is known to cause arrhythmias? among other causes. The patient was initially started on an IV cardizem for rate control and Cardiology discontinued that this morning and started her on metoprolol succinate 50 mg in the morning. She has already been anticoagulated with therapeutic Lovenox. TSH was within normal limits but T4 was slightly elevated 11.4. Most likely secondary to sick euthyroid syndrome Echocardiogram was ordered and showed she has a severely reduced EF of 15-20%. and reduced RV systolic function. Cardiology evaluated the patient today in feels that since she is still in atrial fibrillation that they will plan for a HATTIE guided cardioversion on Thursday to restore sinus rhythm. Continue monitoring the patient's symptoms and cardiology's input is greatly appreciated. (2) Chest pain: Qualifiers: Chest pain type: unspecified Qualified Code(s): R07.9 - Chest pain, unspecified Code(s): R07.9 - Chest pain, unspecified Status: Acute Assessment and Plan: r/o stable angina vs. ACS troponins were slightly elevating but remained within normal limits due to patient's intermittent chest tightness and symptoms cardiology was consulted Cardiology performed a cardiac catheterization on 03/30/2020 which showed no acute coronary artery disease and severe systolic heart failure. Continue monitoring for any chest pain and I appreciate cardiology's input (3) CHF (congestive heart failure): Qualifiers: Heart failure type: unspecified Heart failure chronicity: acute Qualified Code(s): I50.9 - Heart failure, unspecified Code(s): I50.9 - Heart failure, unspecified Status: Acute Assessment and Plan: Acute nonischemic systolic congestive heart failure. r/o mild CHF exacerbation due to her leg swelling, abdominal distension. Echo shows she has systolic congestive heart failure and is an acute exacerbation of that which is improved after Lasix. Continue Lasix therapy As per cardiology. TSH was normal. Continue on Sodium prudent fluid restricted diet. continue monitoring the patient's symptoms and fluid status.Is and Os, daily weights. (4) Type 2 diabetes mellitus with hyperglycemia: Qualifiers: Diabetes mellitus shelter insulin use: without shelter use Qualified Code(s): E11.65 - Type 2 diabetes mellitus with hyperglycemia Code(s): E11.65 - Type 2 diabetes mellitus with hyperglycemia Status: Chronic Assessment and Plan: serum glucose this morning was 145 which is just slightly elevated. Resume home oral hypoglycemic agents. Hemoglobin A1c is 7.5% Continue monitoring Accuchecks, SSI coverage, hypoglycemic protocol. (5) Hypothyroidism (acquired): Code(s): E03.9 - Hypothyroidism, unspecified Status: Chronic Assessment and Plan: she has a history of hyperthyroidism and underwent treatment and now she is on levothyroxine for the rest or life. TSH with reflex was normal. Continue Levothyroxine. (6) HLD (hyperlipidemia): Qualifiers: Hyperlipidemia type: mixed hyperlipidemia Qualified Code(s): E78.2 - Mixed hyperlipidemia Code(s): E78.5 - Hyperlipidemia, unspecified Status: Chronic Assessment and Plan: Fasting lipid panel was within normal range Continue Atorvastatin.
[2020-03-31] MEDS: ATORVASTATIN 20 MG TABLET PO (17:18)
[2020-03-31 20:38] LABS: Glucose Point of Care 123 (65-105)
[2020-03-31 20:50] LABS: Glucose Point of Care 176 (65-105)
--- NOTE | 2020-03-31 22:45 | PM.CNPUL ---
Assessment and Plan Assessment and plan (1) MARIA LUISA (obstructive sleep apnea): Code(s): G47.33 - Obstructive sleep apnea (adult) (pediatric) Status: Chronic Assessment and Plan: will order home sleep study and APAP if warranted. Moderate to high probabilty of MARIA LUISA (2) COPD (chronic obstructive pulmonary disease): Qualifiers: COPD type: unspecified COPD Qualified Code(s): J44.9 - Chronic obstructive pulmonary disease, unspecified Code(s): J44.9 - Chronic obstructive pulmonary disease, unspecified Status: Acute Assessment and Plan: - will start Spiriva 18 mcg 1 puff daily - Flovent HFA 110 mcg 2 puffs Q12h via chamber device - avoid albuterol or fomoterol for now - avoid non selective Beta blockers if possible. Metoprolol is adequate and can be titrated up to desired effect without hesitation History of Present Illness History of Present Illness Consult date: 03/31/20 Chief complaint: A fib with rvr/heart failure Narrative: 64 admitted with dyspnea, chest tightness was found to be in AFib with RVR and later workup with Echo and Cath concluded non ischemic cardiomyopathy. I was asked to see her for possible sleep apnea. She does admit to multiple night time awakenings, snoring, feeling fatigued and tired during the day, frequent afternoon naps but no morning headaches. She denies excessive caffiene or alcohol intake. She does have a 40 pack year smoking history but quit about 30 yrs ago and was exposed to significant second hand smoke. Review of Systems Review of Systems: All systems reviewed & are unremarkable except as noted in HPI and below PMFSH Past Medical History Medical History (Updated 03/31/20 @ 23:14 by Jocelyn Burgos MD) Arthritis Breast cancer Cancer Depression Diabetes H/O thyroid disease Hypertension Obesity MARIA LUISA (obstructive sleep apnea) Surgical History Surgical History H/O lumpectomy right breast, 05/2009 H/O tubal ligation 06/1978 History of hip replacement right, 05/2017 Family History Family History Father , 55 Family history of malignant neoplasm of stomach Alcoholic Type 2 diabetes mellitus with diabetic neuropathy, unspecified Mother , 74 Family history of congestive heart failure Type 2 diabetes mellitus with diabetic neuropathy, unspecified Sibling Congestive heart failure Sibling Brain tumor Blood clot in vein Diabetes mellitus type 2 with complications Other Cataracts, bilateral Cerebrovascular accident Depression Diabetes mellitus Family history of alcoholism Family history of allergic disorder Family history of coronary artery disease Family history of malignant neoplasm Hypertension Obesity Social History Social History Social History: 16.9 ounces of caffeine per day per demographic sheet Smoking packs per day: 2 Smoking cigarettes per day: 40.0 Years smoked: 20 Smoking pack-years: 40.00 Smoking status: Former smoker Tobacco type: cigarettes Second hand tobacco smoke exposure: Yes Smoking end date: 09/07/91 Alcohol intake: never Substance use: never Gender identity (if verbalized by the patient): Female Spiritual care concerns: No Meds Home Medications and Allergies Home Medications Medication Instructions Recorded Confirmed Type dulaglutide 1.5 mg/0.5 mL 1.5 mg SUB-Q WEEKLY 90 Days #6 ml 01/10/20 03/28/20 Rx subcutaneous pen injector gabapentin 100 mg capsule 100 mg PO TID 01/10/20 03/28/20 History glipizide 5 mg tablet 5 mg PO BID 90 Days #180 tablet 01/10/20 03/28/20 Rx metformin 1,000 mg tablet,extended 1,000 mg PO BID 90 Days #180 tablet 01/10/20 03/28/20 Rx release 24hr sertraline 25 mg tablet 25 mg PO DAILY 01/10/20 03/28/20 History aspirin 81 mg tablet,delayed 81 mg PO DA
[2020-04-01] VITALS (20 sets, daily range): BP systolic 94–104; BP diastolic 61–81; PULSE 94–131; RESP 16–20; TEMP 35.5–36.8; O2SAT 91–97
[2020-04-01] MEDS: LEVOTHYROXINE SODIUM 112 MCG TABLET PO (06:16)
[2020-04-01 06:40] LABS: Hematocrit 38.5 % (37.0-47.0); Hemoglobin 11.9 g/dL (12.0-15.0)
[2020-04-01 06:54] LABS: Anion Gap 11.2 mmol/L (7-16); Blood Urea Nitrogen 10 mg/dL (7-17); Calcium 8.5 mg/dL (8.4-10.2); Carbon Dioxide 23 mmol/L (22-30); Chloride 106 mmol/L (98-107); Estimated CRCL calculation 122 ml/min; Estimated Glomerular Filt Rate > 60; Glucose 132 mg/dL (65-105); Potassium 4.2 mmol/L (3.4-5.0); Sodium 136 mmol/L (137-145)
[2020-04-01] MEDS: FLUTICASONE PROP 110 MCG INHALER 12 GM (*SP) 2 PUFF INHALATION ×2 (08:19→21:40)
[2020-04-01 08:56] LABS: Glucose Point of Care 117 (65-105)
[2020-04-01] MEDS: APIXABAN 5 MG TABLET PO ×2 (10:01→21:20)
[2020-04-01] MEDS: glipiZIDE 5 MG TABLET PO ×2 (10:02→17:37)
[2020-04-01] MEDS: metFORMIN HCL XR 500 MG TAB.SR.24H 1000 MG PO ×2 (10:02→17:36)
[2020-04-01] MEDS: METOPROLOL SUCCINATE EXT REL 50 MG TABCR PO (10:03)
[2020-04-01] MEDS: PANTOPRAZOLE SOD SESQUIHYDRATE 20 MG TAB PO (10:05)
[2020-04-01] MEDS: SERTRALINE HCL 25 MG TABLET PO (10:05)
[2020-04-01] MEDS: GABAPENTIN 100 MG CAPSULE PO ×3 (10:05→17:37)
--- NOTE | 2020-04-01 12:07 | PM.PNPUL ---
Progress Note: A&P Assessment and Plan (1) COPD (chronic obstructive pulmonary disease): Qualifiers: COPD type: unspecified COPD Qualified Code(s): J44.9 - Chronic obstructive pulmonary disease, unspecified Code(s): J44.9 - Chronic obstructive pulmonary disease, unspecified Status: Acute Assessment and Plan: - Spiriva 18 mcg 1 puff daily started - Floven HFA 110 mcg 2 puffs Q12h via chamber device - avoid beta agonists for now - PFT ordered for outpatient (2) MARIA LUISA (obstructive sleep apnea): Code(s): G47.33 - Obstructive sleep apnea (adult) (pediatric) Status: Chronic Assessment and Plan: - home sleep study ordered for outpatient (3) CHF (congestive heart failure): Qualifiers: Heart failure type: unspecified Heart failure chronicity: acute Qualified Code(s): I50.9 - Heart failure, unspecified Code(s): I50.9 - Heart failure, unspecified Status: Acute Assessment and Plan: may go for HATTIE/cardioversion Time Spent With Patient Time with patient: 15 - 25 minutes Subjective Date/time seen: 04/01/20 12:07 Interval history: Still in rapid Afib and feels short of breath with minimal exertion. Spiriva And Flovent started this morning. Review of Systems Review of Systems: All systems reviewed & are unremarkable except as noted in HPI and below Exam Const: General: comfortable and no acute distress HENMT: Mouth: Yes moist mucous membranes Eyes: General: appearance normal, both eyes and all related structures Neck: Neck: supple Resp: Effort & Inspection: normal respiratory effort Auscultation: diminished lung sounds Cardio: Rhythm: abnormal rhythm Other: irregularly irregular rythm GI: GI Palp: Yes Soft to palpation Auscultation: normal bowel sounds Skin: General skin exam: no rashes or lesions noted Neuro: Speech: normal speech Extrem: General: no pedal edema Other: slightly bluish color LEs which are cold to touch but good cap refill Psych: Mental Status: mental status grossly normal Objective Data Vital Signs Vital Signs: Vital Signs - 24 hr 03/31/20 13:47 03/31/20 16:00 03/31/20 16:09 Temperature 35.7 C L Pulse Rate 108 H 108 H 111 H Respiratory Rate 22 H Blood Pressure 89/43 L Pulse Oximetry 96 03/31/20 17:40 03/31/20 20:00 03/31/20 20:09 Temperature 37.5 C Pulse Rate 116 H 61 61 Respiratory Rate 18 18 Blood Pressure 94/67 L Pulse Oximetry 96 98 03/31/20 22:00 04/01/20 00:00 04/01/20 00:13 Temperature 35.6 C L Pulse Rate 104 H 113 H 113 H Respiratory Rate 18 18 Blood Pressure 101/65 Pulse Oximetry 95 95 04/01/20 02:00 04/01/20 04:00 04/01/20 04:40 Temperature 36.1 C L Pulse Rate 101 H 113 H 113 H Respiratory Rate 20 20 Blood Pressure 104/61 Pulse Oximetry 94 94 04/01/20 06:00 04/01/20 08:20 04/01/20 08:43 Temperature 35.5 C L Pulse Rate 112 H 109 H Respiratory Rate 16 Blood Pressure 94/68 L Pulse Oximetry 93 97 04/01/20 10:03 Temperature Pulse Rate 131 H Respiratory Rate Blood Pressure Pulse Oximetry Intake/Output Intake/Output: Intake & Output 03/29/20 03/30/20 03/31/20 04/01/20 23:59 23:59 23:59 23:59 Intake Total 7614 468 1608 436 Output Total 1000 900 725 800 Balance 668 -248 7734 -870 Meds/Results Medications: Active Medications Generic Name Dose Route Start Last Admin Trade Name Freq PRN Reason Stop Dose Admin Acetaminophen 650 mg 03/28/20 20:13 03/31/20 01:38 Tylenol Tablet PO 650 mg Q4H PRN Administration Mild Pain (1-3) or Fever Apixaban 5 mg 04/01/20 09:25 04/01/20 10:01 Eliquis PO 5 mg Q12HR ZAID Administration Atorvastatin Calcium 20 mg 03/29/20 18:00 03/31/20 17:18 Lipitor PO 20 mg QPM ZAID Administration Calcium Carbonate 200 mg 03/28/20 20:13 Tums PO Q6H PRN Indigestion Dextrose 12.5 gm 03/28/20 20:12 Dextrose 50% Syringe IV PUSH
[2020-04-01 12:20] LABS: Glucose Point of Care 195 (65-105)
--- NOTE | 2020-04-01 13:09 | PM.PNCARD ---
Progress Note: A&P Assessment and Plan (1) Atrial fibrillation with rapid ventricular response: Code(s): I48.91 - Unspecified atrial fibrillation Status: Acute Assessment and Plan: Severe LV systolic dysfunction nonischemic etiology. Diuresis as tolerated. Patient nearing euvolemia. Continue Entresto, beta willam. HR unctonrolled unable to realiaby increase BB due to relative hypotension. Therefore, rhythm control strategy with HATTIE guided cardioversion advised. Given hematoma post cardiac catheterization systemic anticoagulation had been delayed, but given this AM. Close clinical observation. No obvious hematoma exam this time, however, will need to monitor closely. Instructed patient and nurse to report any new changes or concerns. If so, will need to defer cardioversion as we would not want to discontinue anticoagulation thereafter. Will tentatively keep patient NPO after midnight for possible cardioversion. Will need to monitor blood pressure and to assess tolerance. May need assistance with Anesthesiology if BP remains marginal. Check H&H in a.m.. we discussed the above in great detail. We discussed the bleeding risk versus appropriate medical therapy in order to proceed safely with HATTIE guided cardioversion. Patient verbalized understanding. All questions answered to her satisfaction. (2) Hypertension associated with diabetes: Code(s): E11.59 - Type 2 diabetes mellitus with other circulatory complications; I10 - Essential (primary) hypertension Status: Acute Assessment and Plan: Per primary service. Relative hypotension. Do not hold medications unless systolic blood pressure less than 90 mm Hg or symptomatic. 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 continue metoprolol. Continue Entresto Monitor tolerance. (5) MARIA LUISA (obstructive sleep apnea): Code(s): G47.33 - Obstructive sleep apnea (adult) (pediatric) Status: Chronic Assessment and Plan: eventually needs treatment of her sleep apnea. This is highly important given her atrial fibrillation history Subjective Date/time seen: Date of service:04/01/20 13:09 Interval history: reason for admission/Follow-up:congestive heart failure , AFib Date of service 04/01/2020: Feels ok but fatigued and short of breath with activity. Denies significant dizziness but admits to feeling weak. No chest pain. Notes ongoing soreness in R groin/lleg after hematoma from left heart catheterization especially if sits too long in chair. Remains in atrial fibrillation with rapid ventricular response heart rate generally low 100s-110s, SBP 80's-90's, however. No chest pain. Review of Systems Review of Systems: All systems reviewed & are unremarkable except as noted in HPI and below Constitutional: Constitutional: Reports as per HPI, Denies fatigue, Denies headache(s) and Reports weakness Eyes: Eyes: Reports as per HPI and Denies blurry vision ENT: Reports as per HPI, Denies Normal hearing present, Denies headache(s) and Denies neck pain Cardiovascular: Cardiovascular: Reports as per HPI, Denies chest pain, Reports dyspnea and Reports dyspnea on exertion Respiratory: Respiratory: Reports as per HPI, Reports dyspnea and Reports dyspnea on exertion Gastrointestinal: Gastroint
--- NOTE | 2020-04-01 14:19 | PM.IMPN ---
Progress Note: A&P Assessment and Plan (1) Atrial fibrillation with rapid ventricular response: Code(s): I48.91 - Unspecified atrial fibrillation Status: Acute Assessment and Plan: CHADS-VASc score 5 - May be secondary to acute mild CHF exacerbation, heart disease, long standing HTN The patient was initially started on an IV cardizem for rate control and Cardiology discontinued and started her on metoprolol succinate 50 mg in the morning. Her anticoagulation was discontinued during catheterization and just restarted to Eliquis today by Cardiology due to a hematoma that was developed. TSH was within normal limits but T4 was slightly elevated 11.4. Most likely secondary to sick euthyroid syndrome Echocardiogram was ordered and showed she has a severely reduced EF of 15-20%. and reduced RV systolic function. Cardiology evaluated the patient today in feels that since she is still in atrial fibrillation that they will plan for a HATTIE guided cardioversion on Thursday to restore sinus rhythm. Continue monitoring the patient's symptoms and cardiology's input is greatly appreciated. (2) Chest pain: Qualifiers: Chest pain type: unspecified Qualified Code(s): R07.9 - Chest pain, unspecified Code(s): R07.9 - Chest pain, unspecified Status: Acute Assessment and Plan: r/o stable angina vs. ACS troponins were slightly elevating but remained within normal limits due to patient's intermittent chest tightness and symptoms cardiology was consulted Cardiology performed a cardiac catheterization on 03/30/2020 which showed no acute coronary artery disease and severe systolic heart failure. Continue monitoring for any chest pain and I appreciate cardiology's input (3) CHF (congestive heart failure): Qualifiers: Heart failure chronicity: acute Heart failure type: unspecified Qualified Code(s): I50.9 - Heart failure, unspecified Code(s): I50.9 - Heart failure, unspecified Status: Acute Assessment and Plan: Acute nonischemic systolic congestive heart failure. r/o mild CHF exacerbation due to her leg swelling, abdominal distension. Echo shows she has systolic congestive heart failure and is an acute exacerbation of that which is improved after Lasix. Continue Lasix therapy As per cardiology. TSH was normal. Continue on Sodium prudent fluid restricted diet. continue monitoring the patient's symptoms and fluid status.Is and Os, daily weights. (4) Type 2 diabetes mellitus with hyperglycemia: Qualifiers: Diabetes mellitus dermatology nurse insulin use: without dermatology nurse use Qualified Code(s): E11.65 - Type 2 diabetes mellitus with hyperglycemia Code(s): E11.65 - Type 2 diabetes mellitus with hyperglycemia Status: Chronic Assessment and Plan: serum glucose this morning was 132 which is just slightly elevated. Resume home oral hypoglycemic agents. Hemoglobin A1c is 7.5% Continue monitoring Accuchecks, SSI coverage, hypoglycemic protocol. (5) Hypothyroidism (acquired): Code(s): E03.9 - Hypothyroidism, unspecified Status: Chronic Assessment and Plan: she has a history of hyperthyroidism and underwent treatment and now she is on levothyroxine for the rest or life. TSH with reflex was normal. Continue Levothyroxine. (6) HLD (hyperlipidemia): Qualifiers: Hyperlipidemia type: mixed hyperlipidemia Qualified Code(s): E78.2 - Mixed hyperlipidemia Code(s): E78.5 - Hyperlipidemia, unspecified Status: Chronic Assessment and Plan: Fasting lipid panel was within normal range Continue Atorvastatin.
[2020-04-01 17:22] LABS: Glucose Point of Care 136 (65-105)
[2020-04-01] MEDS: ATORVASTATIN 20 MG TABLET PO (18:30)
[2020-04-01 21:07] LABS: Glucose Point of Care 151 (65-105)
[2020-04-01] MEDS: SACUBITRIL/VALSARTAN 12-13 MG TABLET 1 TAB PO (21:19)
[2020-04-02] VITALS (22 sets, daily range): BP systolic 87–119; BP diastolic 56–86; PULSE 97–125; RESP 18–22; TEMP 36.3–36.7; O2SAT 92–97
[2020-04-02 05:10] LABS: Hematocrit 37.5 % (37.0-47.0); Hemoglobin 11.6 g/dL (12.0-15.0)
[2020-04-02 05:24] LABS: Anion Gap 13.3 mmol/L (7-16); Blood Urea Nitrogen 13 mg/dL (7-17); Calcium 8.9 mg/dL (8.4-10.2); Carbon Dioxide 22 mmol/L (22-30); Chloride 106 mmol/L (98-107); Estimated CRCL calculation 105 ml/min; Estimated Glomerular Filt Rate > 60; Glucose 143 mg/dL (65-105); Potassium 4.3 mmol/L (3.4-5.0); Sodium 137 mmol/L (137-145)
[2020-04-02] MEDS: LEVOTHYROXINE SODIUM 112 MCG TABLET PO (06:19)
[2020-04-02 08:41] LABS: Glucose Point of Care 129 (65-105)
[2020-04-02] MEDS: APIXABAN 5 MG TABLET PO ×2 (09:06→20:16)
[2020-04-02] MEDS: SERTRALINE HCL 25 MG TABLET PO (09:06)
[2020-04-02] MEDS: GABAPENTIN 100 MG CAPSULE PO ×2 (09:06→17:05)
[2020-04-02] MEDS: SACUBITRIL/VALSARTAN 12-13 MG TABLET 1 TAB PO ×2 (09:06→20:16)
[2020-04-02] MEDS: METOPROLOL SUCCINATE EXT REL 50 MG TABCR PO (09:06)
[2020-04-02] MEDS: PANTOPRAZOLE SOD SESQUIHYDRATE 20 MG TAB PO (09:06)
[2020-04-02] MEDS: FLUTICASONE PROP 110 MCG INHALER 12 GM (*SP) 2 PUFF INHALATION ×2 (09:22→19:33)
--- NOTE | 2020-04-02 09:27 | PM.PNCARD ---
Progress Note: A&P Assessment and Plan (1) Atrial fibrillation with rapid ventricular response: Code(s): I48.91 - Unspecified atrial fibrillation Status: Acute Assessment and Plan: Severe LV systolic dysfunction nonischemic, most likely tachycardia induced cardiomyopathy due to uncontrolled atrial fibrillation with rapid ventricular response. Therefore, HATTIE guided cardioversion with Anesthesiology anticipated today. NPO. Eliquis 5 mg twice daily has already been initiated and tolerating well. Risks, benefits, and alternatives previously discussed. Patient verbalized understanding and agreed with plan of care. (2) Hypertension associated with diabetes: Code(s): E11.59 - Type 2 diabetes mellitus with other circulatory complications; I10 - Essential (primary) hypertension Status: Acute Assessment and Plan: Per primary service. Relative hypotension. Do not hold medications unless systolic blood pressure less than 90 mm Hg or symptomatic. 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 continue metoprolol. Continue Entresto. Patient must remain on Entresto for best clinical benefit EF 15-20%. Patient clearly meets indications and would not be reasonable for this to be denied by her insurance company as has been reported. Care Coordination to investigate and resubmit. (5) MARIA LUISA (obstructive sleep apnea): Code(s): G47.33 - Obstructive sleep apnea (adult) (pediatric) Status: Chronic Assessment and Plan: She will eventually need treatment of her sleep apnea. This is very important but will need to be set up as an outpatient. Subjective Date/time seen: Date of Service: 04/02/20 09:27 Interval history: reason for admission/Follow-up:congestive heart failure , AFib Date of service 04/02/2020: Feels ok but fatigued and short of breath with activity. no new issues. Denies significant dizziness.. No chest pain. No new pain or swelling in R groin/leg after hematoma from left heart catheterization. H/H stable after starting eliquis yesterday morning. Remains in atrial fibrillation with rapid ventricular response heart rate generally low 100s-120s, SBP 90-100. Denies chest pain. Review of Systems Review of Systems: All systems reviewed & are unremarkable except as noted in HPI and below Constitutional: Constitutional: Reports as per HPI, Denies fatigue, Denies headache(s) and Reports weakness Eyes: Eyes: Reports as per HPI and Denies blurry vision ENT: Reports as per HPI, Denies Normal hearing present, Denies headache(s) and Denies neck pain Cardiovascular: Cardiovascular: Reports as per HPI, Denies chest pain, Reports dyspnea and Reports dyspnea on exertion Respiratory: Respiratory: Reports as per HPI, Reports dyspnea and Reports dyspnea on exertion Gastrointestinal: Gastrointestinal: Reports as per HPI, Denies abdominal pain and Reports bloating Genitourinary: Genitourinary: Reports as per HPI and Denies flank pain Musculoskeletal: Musculoskeletal: Reports as per HPI, Denies back pain, Denies neck pain and Denies numbness Integumentary/Breasts: Skin/Breast: Reports as per HPI, Reports erythema, Denies rash and Reports unusual bruising Neurologic: Reports as per HPI, Denies Normal hearing present, Denies confusion, Denies head
--- NOTE | 2020-04-02 10:18 | WPDANESEPPF ---
Anes - Initial Pre Proc Eval Procedure: Operation Date: 03/30/20 13:00 Proposed Procedures p Left Heart Cath - Aba Aleman MD Operation Date: 04/02/20 13:30 Proposed Procedures p Trans Esophageal Echo - Pipo Lombardo MD s Electrical Cardioversion - Pipo Lombardo MD Date/Time: 04/02/20 10:18 Surgeon: Mandy Acosta PA-C Pre Op Diagnosis: A fib with rvr/heart failure Patient Data Age: 64 Gender: F Height: 1.68 m Weight: 119.4 kg Last Vital Signs Temp 36.4 C L 04/02/20 07:08 Pulse 116 H 04/02/20 09:06 Resp 18 04/02/20 07:08 BP 102/64 04/02/20 07:08 Pulse Ox 93 04/02/20 07:08 Allergies Allergy/AdvReac Type Severity Reaction Status Date / Time lisinopril Allergy Unknown Hives Verified 03/28/20 12:32 Home Medications Medication Instructions Recorded Confirmed Type dulaglutide 1.5 mg/0.5 mL 1.5 mg SUB-Q WEEKLY 90 Days #6 ml 01/10/20 03/28/20 Rx subcutaneous pen injector gabapentin 100 mg capsule 100 mg PO TID 01/10/20 03/28/20 History glipizide 5 mg tablet 5 mg PO BID 90 Days #180 tablet 01/10/20 03/28/20 Rx metformin 1,000 mg tablet,extended 1,000 mg PO BID 90 Days #180 tablet 01/10/20 03/28/20 Rx release 24hr sertraline 25 mg tablet 25 mg PO DAILY 01/10/20 03/28/20 History aspirin 81 mg tablet,delayed 81 mg PO DAILY #90 tablet 01/11/20 03/28/20 Rx release atorvastatin 20 mg tablet 20 mg PO QPM #90 tablet 01/11/20 03/28/20 Rx celecoxib 200 mg capsule 200 mg PO DAILY #90 cap 01/11/20 03/28/20 Rx levothyroxine 112 mcg tablet 112 mcg PO QPM #90 tablet 01/11/20 03/28/20 Rx metoprolol succinate 50 mg 50 mg PO DAILY #90 tablet 01/11/20 03/28/20 Rx tablet,extended release 24 hr pantoprazole 20 mg tablet,delayed 20 mg PO QAM #90 tablet 01/11/20 03/28/20 Rx release telmisartan 40 mg tablet 40 mg PO DAILY #90 tablet 03/16/20 03/28/20 Rx albuterol sulfate [ProAir HFA] 1 - 2 puff INHALATION Q4-6H PRN 03/28/20 03/28/20 History Laboratory Tests 04/01/20 04/01/20 04/01/20 12:15 17:18 20:12 Hgb Hct Sodium Potassium Chloride Carbon Dioxide Anion Gap BUN Creatinine Estim Creat Clear Calc Estimated GFR Glucose POC Capillary Glucose 195 mg/dl H mg/dl 136 mg/dl H mg/dl 151 mg/dl H mg/dl (65-105) (65-105) (65-105) Calcium 04/02/20 04/02/20 04/02/20 04:30 04:30 08:38 Hgb 11.6 g/dL L g/dL (12.0-15.0) Hct 37.5 % % (37.0-47.0) Sodium 137 mmol/L mmol/L (137-145) Potassium 4.3 mmol/L mmol/L (3.4-5.0) Chloride 106 mmol/L mmol/L (98-107) Carbon Dioxide 22 mmol/L mmol/L (22-30) Anion Gap 13.3 mmol/L mmol/L (7-16) BUN 13 mg/dL mg/dL (7-17) Creatinine 0.60 mg/dL L mg/dL (0.7-1.0) Estim Creat Clear Calc 105 ml/min ml/min Estimated GFR > 60 (59 - ) Glucose 143 mg/dL H mg/dL (65-105) POC Capillary Glucose 129 mg/dl H mg/dl (65-105) Calcium 8.9 mg/dL mg/dL (8.4-10.2) Patient hx anesthesia problems: none Family hx anesthesia problems: none PMFSH Past Medical History Medical History (Updated 04/02/20 @ 10:18 by Fran White DO) Arthritis Atrial fibrillation with rapid ventricular response Breast cancer Cancer CHF (congestive heart failure) Depression Diabetes H/O thyroid disease Hypertension Obesity MARIA LUISA (obstructive sleep apnea) Surgical History Surgical History H/O lumpectomy right breast, 05/2009 H/O tubal ligation 06/1978 History of hip replacement right, 05/2017 Family History Family History Father , 55 Family history of malignant neoplasm of stomach Alcoholic Type 2 diabetes mellitus
--- NOTE | 2020-04-02 12:24 | PM.IMPN ---
Progress Note: A&P Assessment and Plan (1) Atrial fibrillation with rapid ventricular response: Code(s): I48.91 - Unspecified atrial fibrillation Status: Acute Assessment and Plan: CHADS-VASc score 5 - May be secondary to acute mild CHF exacerbation, heart disease, long standing HTN The patient was initially started on an IV cardizem for rate control and Cardiology discontinued and started her on metoprolol succinate 50 mg in the morning. Her anticoagulation was discontinued during catheterization and just restarted to Eliquis today by Cardiology due to a hematoma that was developed. TSH was within normal limits but T4 was slightly elevated 11.4. Most likely secondary to sick euthyroid syndrome Echocardiogram was ordered and showed she has a severely reduced EF of 15-20%. and reduced RV systolic function. Cardiology Will be performing a HATTIE with cardioversion this afternoon and monitor the patient overnight to see if she converts back into atrial fibrillation. Continue monitoring the patient's symptoms and cardiology's input is greatly appreciated. (2) Chest pain: Qualifiers: Chest pain type: unspecified Qualified Code(s): R07.9 - Chest pain, unspecified Code(s): R07.9 - Chest pain, unspecified Status: Acute Assessment and Plan: r/o stable angina vs. ACS troponins were slightly elevating but remained within normal limits due to patient's intermittent chest tightness and symptoms cardiology was consulted Cardiology performed a cardiac catheterization on 03/30/2020 which showed no acute coronary artery disease and severe systolic heart failure. Continue monitoring for any chest pain and I appreciate cardiology's input (3) CHF (congestive heart failure): Qualifiers: Heart failure type: unspecified Heart failure chronicity: acute Qualified Code(s): I50.9 - Heart failure, unspecified Code(s): I50.9 - Heart failure, unspecified Status: Acute Assessment and Plan: Acute nonischemic systolic congestive heart failure. r/o mild CHF exacerbation due to her leg swelling, abdominal distension. Echo shows she has systolic congestive heart failure and is an acute exacerbation of that which is improved after Lasix. Continue Lasix therapy As per cardiology. TSH was normal. Continue on Sodium prudent fluid restricted diet. continue monitoring the patient's symptoms and fluid status.Is and Os, daily weights. 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 Resume home oral hypoglycemic agents. Hemoglobin A1c is 7.5% Continue monitoring Accuchecks, SSI coverage, hypoglycemic protocol. (5) Hypothyroidism (acquired): Code(s): E03.9 - Hypothyroidism, unspecified Status: Chronic Assessment and Plan: she has a history of hyperthyroidism and underwent treatment and now she is on levothyroxine for the rest or life. TSH with reflex was normal. Continue Levothyroxine. (6) HLD (hyperlipidemia): Qualifiers: Hyperlipidemia type: mixed hyperlipidemia Qualified Code(s): E78.2 - Mixed hyperlipidemia Code(s): E78.5 - Hyperlipidemia, unspecified Status: Chronic Assessment and Plan: Fasting lipid panel was within normal range Continue Atorvastatin. (7) HTN (hyper
--- NOTE | 2020-04-02 12:34 | PC.NURSE ---
Patient's PO diabetes medications held per Dr. Lombardo as patient is having a HATTIE Cardioversion today and is currently NPO.
[2020-04-02 12:41] LABS: Glucose Point of Care 122 (65-105)
--- NOTE | 2020-04-02 13:44 | PM.PNPUL ---
Progress Note: A&P Assessment and Plan (1) COPD (chronic obstructive pulmonary disease): Qualifiers: COPD type: unspecified COPD Qualified Code(s): J44.9 - Chronic obstructive pulmonary disease, unspecified Code(s): J44.9 - Chronic obstructive pulmonary disease, unspecified Status: Acute Assessment and Plan: - Spiriva 18 mcg 1 puff daily started - Floven HFA 110 mcg 2 puffs Q12h via chamber device - avoid beta agonists for now - PFT ordered for outpatient (2) MARIA LUISA (obstructive sleep apnea): Code(s): G47.33 - Obstructive sleep apnea (adult) (pediatric) Status: Chronic Assessment and Plan: - home sleep study ordered for outpatient (3) CHF (congestive heart failure): Qualifiers: Heart failure type: unspecified Heart failure chronicity: acute Qualified Code(s): I50.9 - Heart failure, unspecified Code(s): I50.9 - Heart failure, unspecified Status: Acute Assessment and Plan: may go for HATTIE/cardioversion Subjective Date/time seen: 04/02/20 13:44 Interval history: This 64 yo female is seen in follow up for COPD, MARIA LUISA, and CHF. Still in rapid Afib and feels short of breath with minimal exertion. Spiriva And Flovent started this morning. Review of Systems Review of Systems: All systems reviewed & are unremarkable except as noted in HPI and below Exam Const: General: comfortable and no acute distress HENMT: Mouth: Yes moist mucous membranes Eyes: General: appearance normal, both eyes and all related structures Neck: Neck: supple Resp: Effort & Inspection: normal respiratory effort Auscultation: diminished lung sounds Cardio: Rhythm: abnormal rhythm Other: irregularly irregular rythm GI: Auscultation: normal bowel sounds Skin: General skin exam: no rashes or lesions noted Neuro: Speech: normal speech Extrem: General: no pedal edema Other: slightly bluish color LEs which are cold to touch but good cap refill Psych: Mental Status: mental status grossly normal Objective Data Vital Signs Vital Signs: Vital Signs - 24 hr 04/01/20 14:00 04/01/20 16:00 04/01/20 18:00 Temperature 36.7 C Pulse Rate 116 H 109 H 111 H Respiratory Rate 16 Blood Pressure 95/74 L Pulse Oximetry 96 04/01/20 20:00 04/01/20 21:44 04/01/20 21:57 Temperature 36.6 C Pulse Rate 117 H 124 H 115 H Respiratory Rate 18 20 Blood Pressure 101/81 Pulse Oximetry 94 96 04/01/20 23:39 04/01/20 23:43 04/02/20 01:50 Temperature 36.8 C Pulse Rate 122 H 130 H 112 H Respiratory Rate 18 Blood Pressure 96/68 L Pulse Oximetry 91 04/02/20 03:48 04/02/20 04:00 04/02/20 06:00 Temperature 36.7 C Pulse Rate 114 H 112 H 120 H Respiratory Rate 20 Blood Pressure 116/56 L Pulse Oximetry 94 04/02/20 07:08 04/02/20 08:00 04/02/20 09:06 Temperature 36.4 C L Pulse Rate 120 H 113 H 116 H Respiratory Rate 18 Blood Pressure 102/64 Pulse Oximetry 93 04/02/20 10:00 04/02/20 12:00 Temperature 36.4 C Pulse Rate 113 H 112 H Respiratory Rate 18 Blood Pressure 119/67 Pulse Oximetry 96 Intake/Output Intake/Output: Intake & Output 03/30/20 03/31/20 04/01/20 04/02/20 23:59 23:59 23:59 23:59 Intake Total 300 2866 1151 Output Total 089 882 4364 125 Balance -600 2141 1 -125 Meds/Results Medications: Active Medications Generic Name Dose Route Start Last Admin Trade Name Freq PRN Reason Stop Dose Admin Acetaminophen 650 mg 03/28/20 20:13 03/31/20 01:38 Tylenol Tablet PO 650 mg Q4H PRN Administration Mild Pain (1-3) or Fever Apixaban 5 mg 04/01/20 09:25 04/02/20 09:06 Eliquis PO 5 mg Q12HR ZAID Administration Atorvastatin Calcium 20 mg 03/29/20 18:00 04/01/20 18:30 Lipitor PO 20 mg QPM ZAID Administration Calcium Carbonate 200 mg 03/28/20 20:13 Tums PO Q6H PRN Indigestion Dextrose 12.5 gm 03/28/20 20:12 Dextrose 50% Syringe IV PU
--- NOTE | 2020-04-02 14:20 | WPDTECDV ---
HATTIE with Cardioversion Date of procedure: 04/02/20 Procedure Type: Transesophageal echocardiogram guided elective electrical cardioversion Diagnosis: atrial fibrillation with rapid ventricular response Indications: atrial fibrillation with rapid ventricular response Description of Procedure: Brief history present illness: Patient is a pleasant 64-year-old female found to have new diagnosis nonischemic cardiomyopathy with severe LV dysfunction EF 15-20% secondary to tachycardia induced cardiomyopathy related to atrial fibrillation with rapid ventricular response. Patient had normal coronary anatomy left heart catheterization yet remains symptomatic due to LV dysfunction and uncontrolled atrial fibrillation. She has been relatively hypotensive limiting up titration of rate-controlling medications and was subsequently referred for transesophageal echocardiogram-guided elective electrical cardioversion in attempt to restore sinus rhythm. Procedure in detail: After verbal and written informed consent was obtained the patient risks, benefits, and alternatives explained in detail the patient agreed to proceed with the plan of care as outlined above. Patient was evaluated at bedside in the PACU. On examination, neck was supple with normal range of motion, no restrictions to opening of the oral cavity, jaw angle and posterior hypopharynx was clear. Lungs were clear to auscultation. Patient was placed in appropriate 30 to 45 degree angle in a supine, slight left lateral decubitus position. Patient was monitored throughout the study with telemetry, oxygen saturation, end-tidal CO2 monitoring, blood pressure, heart rate, and respirations by Anesthesiology. Anterior and posterior defibrillator pads placed in the appropriate positions. The oral bite block placed and sedation was administered by Anesthesiology. Through the oral bite block, the transesophageal echocardiogram probe was advanced into the posterior hypopharynx and into the esophagus easily and without complication. Multiple, multiplanar echocardiographic images were obtained in multiple standard re-projections. Pulsed wave, continuous-wave, and color-flow Doppler were utilized in conjunction with this study. At the conclusion of the study, the transesophageal echocardiogram probe was removed easily and without complication. Patient tolerated the procedure well without difficulty. Patient was in atrial fibrillation throughout the study. Moderate Sedation/Anesthesia administration: Patient denied previous intolerance or complications with anesthesia/sedation. Please see documentation by Anesthesiology as sedation was administered by their service. Sedation: See anesthesiology documentation for details and protocol. Findings: Findings: The left ventricle was severely enlarged with severe global LV systolic dysfunction EF 15 to 20%. Mild RV enlargement with mild hypokinesis. Mild concentric left ventricular hypertrophy noted. Moderate left and mild right atrial enlargement. Remnant Eustachian valve in the right atrium. Moderate spontaneous contrast noted within the left atrium. Interatrial septum atrial septal aneurysmal motion with evidence of [id number] prominent shunt with color flow Doppler and [id number]-[id number] with faint but early crossing of bubbles with injection of agitated saline consistent with PFO. Mitral and tricuspid valve are anatomically normal with normal leaflet excursion with mild to moderate regurgitation with at least 2 separate jets identified. No mobile elements identified. Aortic valve was anatomically normal 3 leaflet structure with normal leaflet excursion and no regurgitation identified. Pulmonic valve was not well visualized, however, trivial regurgitation was identified. Left atrial appendage was a large anatomically normal structure with prominent pectinate muscles with near static loosely organized thrombus along with suspicion for thrombus within the appendage. Left atrial abdoul
--- NOTE | 2020-04-02 14:27 | SUR.OPER ---
1403-Please see ANES note for vitals and medications given. Thank you!
[2020-04-02 16:30] LABS: Glucose Point of Care 127 (65-105)
[2020-04-02] MEDS: metFORMIN HCL XR 500 MG TAB.SR.24H 1000 MG PO (17:05)
[2020-04-02] MEDS: ATORVASTATIN 20 MG TABLET PO (17:05)
[2020-04-02] MEDS: glipiZIDE 5 MG TABLET PO (17:05)
[2020-04-02] MEDS: DIGOXIN 250 MCG TABLET 500 MCG PO (17:05)
[2020-04-02 20:21] LABS: Glucose Point of Care 151 (65-105)
[2020-04-03] VITALS (11 sets, daily range): BP systolic 90–110; BP diastolic 61–69; PULSE 89–108; RESP 18–20; TEMP 35.9–36.6; O2SAT 94–100
[2020-04-03 05:03] LABS: Hematocrit 35.3 % (37.0-47.0); Hemoglobin 10.8 g/dL (12.0-15.0); Immature Platelet Fraction Pct 5.2 % (0.9-11.2); Mean Corpuscular HGB Conc 30.6 g/dl (32-36); Mean Corpuscular Hemoglobin 30.2 pg (26-34); Mean Corpuscular Volume 98.6 fl (80-100); Mean Platelet Volume 11.3 fl (7.4-10.4); Platelet Count Result 124 k/mm3 (150-375); Red Blood Count 3.58 M/mm3 (4.2-5.4); Red Cell Distribution Width 13.1 % (11.5-14.5); White Blood Count 6.3 K/mm3 (4.5-10.0)
[2020-04-03 05:19] LABS: Anion Gap 11.1 mmol/L (7-16); Blood Urea Nitrogen 11 mg/dL (7-17); Calcium 8.6 mg/dL (8.4-10.2); Carbon Dioxide 24 mmol/L (22-30); Chloride 105 mmol/L (98-107); Estimated CRCL calculation 105 ml/min; Estimated Glomerular Filt Rate > 60; Glucose 112 mg/dL (65-105); Potassium 4.1 mmol/L (3.4-5.0); Sodium 136 mmol/L (137-145)
[2020-04-03] MEDS: LEVOTHYROXINE SODIUM 112 MCG TABLET PO (06:07)
[2020-04-03 07:39] LABS: Glucose Point of Care 101 (65-105)
--- NOTE | 2020-04-03 08:00 | ECG_ITS ---
Measurements Intervals [place] Rate: 99 P: ID: 0 QRS: -67 QRSD: 88 T: 147 QT: 335 QTc: 431 Interpretive Statements ATRIAL FIBRILLATION VENTRICULAR PREMATURE COMPLEXES LEFT AXIS DEVIATION LOW QRS VOLTAGE- DIFFUSE LEADS ANTEROSEPTAL INFARCT, AGE INDETERMINATE BORDERLINE ST-T WAVE ABNORMALITY- ANTEROLAT/HIGH LAT LEADS BASELINE WANDER- V1-V3 ABNORMAL ECG Electronically Signed On 04-03-2020 9:38:13 CDT by Gustavo Sousa D.O.
[2020-04-03] MEDS: FLUTICASONE PROP 110 MCG INHALER 12 GM (*SP) 2 PUFF INHALATION (09:08)
[2020-04-03] MEDS: PANTOPRAZOLE SOD SESQUIHYDRATE 20 MG TAB PO (09:09)
[2020-04-03] MEDS: metFORMIN HCL XR 500 MG TAB.SR.24H 1000 MG PO (09:09)
[2020-04-03] MEDS: DIGOXIN TAB 125 MCG TABLET PO (09:09)
[2020-04-03] MEDS: SACUBITRIL/VALSARTAN 12-13 MG TABLET 1 TAB PO (09:09)
[2020-04-03] MEDS: APIXABAN 5 MG TABLET PO (09:10)
[2020-04-03] MEDS: SERTRALINE HCL 25 MG TABLET PO (09:10)
[2020-04-03] MEDS: GABAPENTIN 100 MG CAPSULE PO (09:10)
[2020-04-03] MEDS: METOPROLOL SUCCINATE EXT REL 50 MG TABCR PO (09:10)
[2020-04-03] MEDS: glipiZIDE 5 MG TABLET PO (09:11)
[2020-04-03 12:34] LABS: Glucose Point of Care 139 (65-105)
--- NOTE | 2020-04-03 13:37 | PM.PNCARD ---
Progress Note: A&P Assessment and Plan (1) Atrial fibrillation with rapid ventricular response: Code(s): I48.91 - Unspecified atrial fibrillation Status: Acute Assessment and Plan: Severe LV systolic dysfunction nonischemic, most likely tachycardia induced cardiomyopathy due to uncontrolled atrial fibrillation with rapid ventricular response. HATTIE guided cardioversion with Anesthesiology anticipated 04/02/[address] Lombardo. Not cardioverted. Due to left atrial appendage thrombus within the appendage as well as significant loosely organized thrombus at the mouth of the appendage extending into the left atrium. Continue Eliquis 5 mg twice daily. (2) Hypertension associated with diabetes: Code(s): E11.59 - Type 2 diabetes mellitus with other circulatory complications; I10 - Essential (primary) hypertension Status: Acute Assessment and Plan: Relative hypotension. She is asymptomatic. (3) Hyperlipidemia associated with type 2 diabetes mellitus: Code(s): E11.69 - Type 2 diabetes mellitus with other specified complication; E78.5 - Hyperlipidemia, unspecified Status: Acute Assessment and Plan: Continue statin (4) CHF (congestive heart failure): Qualifiers: Heart failure chronicity: acute Heart failure type: unspecified Qualified Code(s): I50.9 - Heart failure, unspecified Code(s): I50.9 - Heart failure, unspecified Status: Acute Assessment and Plan: Nonischemic, normal coronary anatomy left heart catheterization most likely tachycardia induced cardiomyopathy secondary to uncontrolled persistent atrial fibrillation. Continue metoprolol. Recommended that she remain onEntresto for best clinical benefit EF 15-20%. She clearly meets indications. From [employer]. administrators the [employer] [facility]: after reviewing the information provided it has been determined that the request cannot be approved. Coverage is provided in situations where the patient has been been stable on any TYLER inhibitor or preferred ARB that has shown to have benefit in heart failure (such as losartan, valsartan) for at least 4 weeks at the maximally tolerated dose. Coverage cannot be authorized at this time. The [facility] presented in [place] at [facility] in July of 2018 clearly demonstrated when started in the hospital in stabilized patients Entresto reduced risk of cardiovascular and heart failure readmission versus enalapril over 8 weeks. Since Paulin[place]o has been denied by her insurance company she will be started on valsartan at 20 mg every 12 hours. Her blood pressure is soft and doubt that there will be much room to up titrate. Will re-evaluate as an outpatient. (5) MARIA LUISA (obstructive sleep apnea): Code(s): G47.33 - Obstructive sleep apnea (adult) (pediatric) Status: Chronic Assessment and Plan: She will eventually need treatment of her sleep apnea. This is very important but will need to be set up as an outpatient. Additional Plan OK to discharge from cardiac standpoint See discharge instructions for follow-up Plan discussed with Dr Lombardo 12:00 p.m. 04/03/2020 Time Spent With Patient Time: 20 minutes was spent in the room with counseling regarding her medications, diet, fluid restriction, activity restriction and follow-up. Greater than 50% of this visit was spent in counseling. Time with patient: 15 - 25 minutes Subjective Date/time seen: 04/03/20 13:37 DRAFT DOCUMENT DO NOT AUDIT. PLAN IS NOT COMPLETE. Interval history: Follow-up for: Atrial fibrillation,HFrEF Date of service: 04/03/2020 Subjective: Denied chest discomfort. Short of breath with exertional activities but improved. Slept well last night. Head of b
--- NOTE | 2020-04-03 13:58 | PM.DS ---
DS: Admitting Diagnosis Admitting Diagnosis Admitting Diagnosis: Unspecified atrial fibrillation DS: Discharge Diagnosis Discharge Diagnosis (1) Atrial fibrillation with rapid ventricular response: Code(s): I48.91 - Unspecified atrial fibrillation Status: Acute Assessment and Plan: CHADS-VASc score 5 - May be secondary to acute mild CHF exacerbation, heart disease, long standing HTN The patient was initially started on an IV cardizem for rate control and Cardiology discontinued and started her on metoprolol succinate 50 mg in the morning. Her anticoagulation was discontinued during catheterization and just restarted by Cardiology due to a hematoma that was developed. (2) Chest pain: Qualifiers: Chest pain type: unspecified Qualified Code(s): R07.9 - Chest pain, unspecified Code(s): R07.9 - Chest pain, unspecified Status: Acute Assessment and Plan: r/o stable angina vs. ACS troponins were slightly elevating but remained within normal limits due to patient's intermittent chest tightness and symptoms cardiology was consulted Cardiology performed a cardiac catheterization on 03/30/2020 which showed no acute coronary artery disease and severe systolic heart failure. (3) CHF (congestive heart failure): Qualifiers: Heart failure chronicity: acute Heart failure type: unspecified Qualified Code(s): I50.9 - Heart failure, unspecified Code(s): I50.9 - Heart failure, unspecified Status: Acute Assessment and Plan: Acute nonischemic systolic congestive heart failure. r/o mild CHF exacerbation due to her leg swelling, abdominal distension. Echo shows she has systolic congestive heart failure (4) Type 2 diabetes mellitus with hyperglycemia: Qualifiers: Diabetes mellitus penitentiary insulin use: without penitentiary use Qualified Code(s): E11.65 - Type 2 diabetes mellitus with hyperglycemia Code(s): E11.65 - Type 2 diabetes mellitus with hyperglycemia Status: Chronic Assessment and Plan: Hemoglobin A1c is 7.5% (5) Hypothyroidism (acquired): Code(s): E03.9 - Hypothyroidism, unspecified Status: Chronic Assessment and Plan: She has a history of hyperthyroidism and underwent treatment and now she is on levothyroxine for the rest or life. TSH with reflex was normal. Continue Levothyroxine. (6) HLD (hyperlipidemia): Qualifiers: Hyperlipidemia type: mixed hyperlipidemia Qualified Code(s): E78.2 - Mixed hyperlipidemia Code(s): E78.5 - Hyperlipidemia, unspecified Status: Chronic Assessment and Plan: Fasting lipid panel was within normal range Continue Atorvastatin. (7) HTN (hypertension): Qualifiers: Hypertension type: essential hypertension Qualified Code(s): I10 - Essential (primary) hypertension Code(s): I10 - Essential (primary) hypertension Status: Chronic Assessment and Plan: Cardiology has been making some adjustments to her medications. (8) MARIA LUISA (obstructive sleep apnea): Code(s): G47.33 - Obstructive sleep apnea (adult) (pediatric) Status: Chronic Assessment and Plan: Apnea link was ordered and shows that she has a risk of having MARIA LUISA. Pulmonolgy evaluatd the patient and recommended an outpatient sleep study to be completed. continue monitoring the patient and appreciate pulmonology recommendations. (9) Abnormal finding on CT scan: Code(s): R93.89 - Abnormal findings on diagnostic imaging of
--- NOTE | 2020-04-04 14:17 | PC.NURSE ---
11:30 received call from patient stating that [facility] did not have the Valsartan she needs. She would like scripts sent to [facility] for the Valsartan and her 2 inhalers. Faxed scripts for the three scripts to [facility]. [facility] called and unable to use faxed scripts, need to be escribed. Spoke with AD Gale for IMU/ICU. Floor RN states patient given paper scripts for the inhalers. Shahla attempting to escribe meds to [facility]. Called and informed patient. If unable to be escribed, patient can call [facility] and have script transferred to [facility] and/or take the 2 paper scripts. Patient states agreement and understanding.
--- NOTE | 2020-04-05 09:43 | PC.NURSE ---
Scripts were not able to be transferred to [facility] per nursing staff. Spoke with patient. Instructed her to call [facility] and have the scripts transferred to [facility]. Patient is agreeable.
[2020-04-07 05:47] LABS: CA-125 145 U/mL (<35)
[2020-04-07 06:31] LABS: CA 15-3 11 U/mL (<32); CA 27.29 20 U/mL (<38)
== END 2020-04-03 15:40 | disposition home or self-care (01) | DRG 286 ==
LOC: ANHED 15:00 → ANHIMU 15:15
PROVIDERS: Family Medicine; Internal Medicine Cardiovascular Disease; Specialist; Admitting Provider Family Medicine; Emergency Provider Emergency Medicine; PCP Emergency Medicine; Visit Provider Physician Assistant
PROC: 4A023N7 Measurement of Cardiac Sampling and Pressure, Left Heart, Percutaneous Approach (ICD-10-PCS; CPT 93452; principal; 2020-03-30 13:00)
PROC: B24BZZ4 Ultrasonography of Heart with Aorta, Transesophageal (ICD-10-PCS; CPT 93312; principal; 2020-04-02 13:30)
DX: I48.91 Unspecified atrial fibrillation (principal); I50.23 Acute on chronic systolic (congestive) heart failure; I42.8 Other cardiomyopathies; E11.59 Type 2 diabetes mellitus with other circulatory complications; I11.0 Hypertensive heart disease with heart failure; E11.69 Type 2 diabetes mellitus with other specified complication; E78.2 Mixed hyperlipidemia; E11.65 Type 2 diabetes mellitus with hyperglycemia; I51.3 Intracardiac thrombosis, not elsewhere classified; I34.0 Nonrheumatic mitral (valve) insufficiency; R07.89 Other chest pain; J44.9 Chronic obstructive pulmonary disease, unspecified; G47.33 Obstructive sleep apnea (adult) (pediatric); E03.9 Hypothyroidism, unspecified; R93.89 Abnormal findings on diagnostic imaging of other specified body structures; Z85.3 Personal history of malignant neoplasm of breast; Z79.82 Long term (current) use of aspirin; Z79.84 Long term (current) use of oral hypoglycemic drugs; Z87.891 Personal history of nicotine dependence; Z96.649 Presence of unspecified artificial hip joint
CPT/HCPCS: 36415; 71046; 71275; 80048; 80061; 83036; 83880; 84436; 84443; 84484; 85014; 85018; 85025; 85027; 85055; 85610; 85730; 86300; 86304; 93005; 93312; 93320; 93325; 93458; 94640; 94762; 96365; 96366; 96375; 96376; 99285; A9270; C1887; C1894; C8929; G0378; J1644; J1650; J1815; J1940; J2250; J2704; J3010; J7030; J7040; Q9957; Q9967

== ENCOUNTER 2020-04-11 10:34 | Outpatient (CLI) | payer MEDICARE, OTHER, SELFPAY ==
--- NOTE | ~2020-04-11 | US_ITS ---
EXAMINATION: US arterial duplex LE RT DATE: 04/11/2020 11:36 INDICATION: Right lower limb pain, swelling and hematoma TECHNIQUE: Multiple grayscale and Doppler ultrasound images of the right groin were obtained. COMPARISON: None FINDINGS: The right common femoral, superficial femoral and profunda femoral arteries are patent with triphasic waveforms with brisk systolic upstrokes. Incidentally noted cardiac arrhythmia. Complex multiloculat ed fluid collection in the more superficial subcutaneous tissues without internal flow on color Doppl er consistent with hematoma. This extends over a 9.7 x 4.7 x 8.6 cm region. IMPRESSION: 1. Multiloculated subcutaneous hematoma at the right groin extending over a 9.7 x 4.7 x 8.6 cm region . No pseudoaneurysm. 2. Incidentally noted cardiac arrhythmia. Correlate with EKG. Reviewed, dictated and finalized at location A. IMPRESSION: 1. Multiloculated subcutaneous hematoma at the right groin extending over a 9.7 x 4.7 x 8.6 cm region. No pseudoaneurysm. 2. Incidentally noted cardiac arrhythmia. Correlate with EKG.
--- NOTE | ~2020-04-11 | US_ITS ---
EXAMINATION: US venous doppler LE RT DATE: 04/11/2020 11:36 INDICATION: Right lower limb pain and swelling. Hematoma. TECHNIQUE: Grayscale ultrasound images without and with compression and Doppler ultrasound images of the right lower extremity veins were obtained. COMPARISON: None. FINDINGS: The visualized portions of right common femoral vein, profunda (deep) femoral vein, femoral vein, pop liteal vein, peroneal trunk, posterior tibial veins, peroneal veins, gastrocnemius vein and greater s aphenous vein outflow are patent. IMPRESSION: 1. No deep venous thrombosis in the right lower limb. Reviewed, dictated and finalized at location A.
== END 2020-04-11 10:35 | disposition home or self-care (01) ==
LOC: ANHIMG 10:37
PROVIDERS: PCP Emergency Medicine; Visit Provider Nurse Practitioner Adult Health
DX: M79.661 Pain in right lower leg (principal); M79.89 Other specified soft tissue disorders; I49.9 Cardiac arrhythmia, unspecified
CPT/HCPCS: 93926; 93971

== ENCOUNTER 2020-05-05 01:43 | Outpatient (CLI) | payer MEDICARE, OTHER, SELFPAY ==
[2020-05-05 19:29] LABS: SARS-CoV-2 RNA PCR Negative
== END 2020-05-05 01:44 | disposition home or self-care (01) ==
LOC: ANHCOVIDDT 01:44
PROVIDERS: PCP Emergency Medicine; Visit Provider Internal Medicine Cardiovascular Disease
DX: Z01.812 Encounter for preprocedural laboratory examination (principal); Z11.59 Encounter for screening for other viral diseases
CPT/HCPCS: 87635; C9803; U0003

== ENCOUNTER 2020-05-08 02:29 | Day surgery (SDC) | payer MEDICARE, OTHER, SELFPAY ==
[2020-05-07 09:40] VITALS: BP 124/86; PULSE 82; RESP 12; O2SAT 96
[2020-05-07 10:19] VITALS: BMI 38.5
[2020-05-08] VITALS (11 sets, daily range): BP systolic 106–129; BP diastolic 67–90; PULSE 72–87; RESP 8–20; TEMP 36.5–36.6; O2SAT 85–99; BMI 38.2
--- NOTE | 2020-05-08 06:13 | ECG_ITS ---
Measurements Intervals [place] Rate: 78 P: [place]: 0 QRS: -71 QRSD: 95 T: 0 QT: 392 QTc: 448 Interpretive Statements ATRIAL FIBRILLATION LEFT AXIS DEVIATION LOW QRS VOLTAGE- DIFFUSE LEADS BORDERLINE R WAVE PROGRESSION, ANTERIOR LEADS BORDERLINE ST-T WAVE ABNORMALITY- LATERAL LEADS ABNORMAL ECG Electronically Signed On 05-08-2020 7:55:34 CDT by Gustavo Sousa D.O.
--- NOTE | 2020-05-08 07:30 | SUR.PREOP ---
ARRIVES AMBULATORY TO [facility] FOR SCHEDULED HATTIE/CARDIOVERSION W/ DR. GRIJALVA. DENIES CP OR SOB ON ARRIVAL. ORIENTED TO ROOM, PLAN OF CARE, PROCEDURE. QUESTIONS ANSWERED. PRE PROCEDURE EKG COMPLETED; SHOWS AFIB. IV STARTED, LABS SENT, VS OBTAINED, CONSENT SIGNED. WENT HOME DURING PROCEDURE. WILL CALL HIM WHEN PT. READY FOR DISCHARGE.
[2020-05-08 08:31] LABS: Anion Gap 8 mmol/L (8-16); Blood Urea Nitrogen 15 mg/dL (7-17); Calcium 9.1 mg/dL (8.4-10.2); Carbon Dioxide 27 mmol/L (22-30); Chloride 105 mmol/L (98-107); Estimated CRCL calculation 96 ml/min; Estimated Glomerular Filt Rate > 60; Glucose 99 mg/dL (65-105); Magnesium 1.4 mg/dL (1.6-2.3); Potassium 3.9 mmol/L (3.4-5.0); Sodium 140 mmol/L (137-145)
--- NOTE | 2020-05-08 08:50 | SUR.PREOP ---
DR. GRIJALVA HERE TO BEDSIDE TO SEE PT. UPDATED ON CONDITION. LAB RESULTS GIVEN. ORDER RECEIVED TO GIVE PT. MAG SULFATE 4GM IVPB.
--- NOTE | 2020-05-08 08:56 | WPDMODSED ---
Moderate Sedation Note-Pt Data Patient Data Diagnosis: Patient feeling well. Here for atrial fibrillation / left atrial appendage thrombus history and is here for a HATTIE guided cardioversion Present Complaint: atrial fibrillation Procedure to be performed/Plan: moderate sedation, multiplanar transesophageal echocardiogram with cardioversion Allergies Allergy/AdvReac Type Severity Reaction Status Date / Time lisinopril Allergy Unknown Hives Verified 03/28/20 12:32 Home Medications Medication Instructions Recorded Confirmed Type dulaglutide 1.5 mg/0.5 mL 1.5 mg SUB-Q WEEKLY 90 Days #6 ml 01/10/20 05/07/20 Rx subcutaneous pen injector sertraline 25 mg tablet 25 mg PO DAILY 01/10/20 05/07/20 History atorvastatin 20 mg tablet 20 mg PO QPM #90 tablet 01/11/20 05/07/20 Rx levothyroxine 112 mcg tablet 112 mcg PO QPM #90 tablet 01/11/20 05/07/20 Rx pantoprazole 20 mg tablet,delayed 20 mg PO QAM #90 tablet 01/11/20 05/07/20 Rx release albuterol sulfate [ProAir HFA] 1 - 2 puff INHALATION Q4-6H PRN 03/28/20 05/07/20 History apixaban [Eliquis] 5 mg PO Q12HR #60 tablet 04/03/20 05/07/20 Rx digoxin 125 mcg PO QAM #30 tablet 04/03/20 05/07/20 Rx fluticasone propionate [Flovent 2 puff INHALATION Q12HRT #1 puff 04/03/20 05/07/20 Rx HFA] tiotropium bromide [Spiriva with 1 cap INHALATION QAM #1 inh 04/03/20 05/07/20 Rx HandiHaler] glipizide 5 mg tablet 5 mg PO BID 90 Days #180 tablet 04/06/20 05/07/20 Rx gabapentin 100 mg capsule 100 mg PO TID #270 cap 04/09/20 05/07/20 Rx furosemide [Lasix] 20 mg PO DAILY 05/07/20 05/07/20 History losartan [Cozaar] 12.5 mg PO DAILY 05/07/20 05/07/20 History metoprolol succinate [Toprol XL] 100 mg PO DAILY 05/07/20 05/07/20 History Current Medications: Active Medications Magnesium Sulfate (Magnesium Sulf 4 Gm/[id number]) 4 gm in 100 mls @ 100 mls/hr IVPB ONCE ONE Stop: 05/08/20 09:53 Sedation/Anesthesia: No previous sedation/anesthesia problems (including family history). [facility] Past Medical History Medical History Arthritis Atrial fibrillation with rapid ventricular response Breast cancer Cancer CHF (congestive heart failure) Depression Diabetes H/O thyroid disease Hypertension Obesity MARIA LUISA (obstructive sleep apnea) Social History Social History Social History: 16.9 ounces of caffeine per day per demographic sheet Smoking packs per day: 2 Smoking cigarettes per day: 40.0 Years smoked: 20 Smoking pack-years: 40.00 Smoking status: Former smoker Tobacco type: cigarettes Second hand tobacco smoke exposure: Yes Smoking end date: 09/07/91 Alcohol intake: never Substance use: never Substance use type: does not use Last use: 1991 Living arrangements: with family Gender identity (if verbalized by the patient): Female Spiritual care concerns: No Mod Sed Physical Exam Physical Exam Pre Procedural Exam: Normal: Appearance, Eyes, Ears, Nose, Neck, Throat, Airway, Lungs, Heart Size, Heart Rate, Neuro Exam, Abdomen, Extremities and Skin and Variation: Heart Rhythm ( irregular irregular) Hours since solid foods: 12 Hours since liquid intake: 12 Internal Medicine - PN: Obj Da Meds/Results Medications: Active Medications Generic Name Dose Route Start Last Admin Trade Name Freq PRN Reason Stop Dose Admin Magnesium Sulfate 4 gm in 100 mls @ 100 mls/hr 05/08/20 08:54 Magnesium Sulf 4 Gm/[id number] IVPB 05/08/20 09:53 ONCE ONE Labs CBC & Chem 7: 05/08/20 08:10 Labs: Laboratory Results - last 24 hr 05/08/20 08:10 Sodium 140 Potassium 3.9 Chloride 105 Carbon Dioxide 27 Anion Gap 8 BUN 15 Creatinine 0.60 L Estim Creat Clear Calc 96 Estimated GFR > 60 Glucose 99 Calcium 9.1 Magnesium 1.4 L ASA Classification/Sedation ASA Classification/Sedation ASA Class: II Emergent: No Risks: Ris
[2020-05-08] MEDS: MAGNESIUM SULF 4 GM/WATER100ML 4 GM/100 ML BAG IVPB (09:05)
--- NOTE | 2020-05-08 09:05 | SUR.PREOP ---
MAGNESIUM SULFATE 4GM IVPB STARTED VIA PUMP ORDERED.
--- NOTE | 2020-05-08 09:30 | SUR.OPER ---
HATTIE IN PROGRESS. PT. HAVING INCREASING O2 NEEDS WHILE SEDATED AT THIS TIME. O2 INCREASED USING SIMPLE MASK, ENCOURAGED TO DEEP BREATHE. WILL CONTINUE TO MONITOR.
--- NOTE | 2020-05-08 09:35 | SUR.OPER ---
END HATTIE. PROBE OUT. NO CARDIOVERSION AT THIS TIME PER DR. GRIJALVA DUE TO FINDINGS. SIMPLE MASK REMAINS ON. O2 SAT IMPROVING NOW THAT PROBE OUT. ENCOURAGED TO AROUSE AND DEEP BREATHE.
--- NOTE | 2020-05-08 09:41 | SUR.PHASEII ---
BEGIN PHASE II RECOVERY. PT. REMAINS IN [facility] [address]. CARDIOVERSION NOT PERFORMED DUE TO FINDINGS OF HATTIE. SEDATE, BUT EASILY AWAKENS TO NAME AND FOLLOWS COMMAND. ENCOURAGED TO DEEP BREATHE. WILL WEAN DOWN OXYGEN TOLERATED. MONITOR AFIB. VSS.
--- NOTE | 2020-05-08 09:49 | WPDTEECHO ---
HATTIE TransEsophageal Echocardiogram Date of procedure: 05/08/20 Procedure Type: Multiplanar transesophageal echocardiography with color flow Doppler moderate sedation Diagnosis: atrial fibrillation Indications: atrial fibrillation Image Quality: good Findings: after discussing the risks, benefits alternatives of the procedure the patient agreeable via verbal and written informed consent. Risks discussed included esophageal rupture perforation, need for emergent surgery, bleeding, pain, infection. This was initially planned as a cardioversion and risks of cardioversion were also discussed included skin irritation or burn, shocking into a more problematic heart rhythm or stroke. After establishing continuous quality assurance monitor final, pulse oxygenation and serial blood pressure assessments, sedation was initiated. her initial labs did show hypo magnesemia and 4 g of IV magnesium were provided Medications used: Hurricaine spray to hypopharynx x2 for topical anesthetic. A total of 3 mg of Versed and 50 mcg of fentanyl given in divided dosages. Medications were administered and patient was monitored by Alessandra Prieto RN procedure start time 9:25 a.m.. Procedure stop time 9:37 a.m.. Complications: None Blood loss: None Findings: Left ventricle is dilated and with severe LV dysfunction. Ejection fraction roughly estimated between 20 and 25%. Left atrium is moderately dilated. There is [id number] mitral regurgitation. Normal mitral valve apparatus. The right ventricle is normal sized and function. Mild tricuspid regurgitation but with normal tricuspid valve appearance. Atrial septum is not intact with a khzs-ru-vzldo shunt noted. This was a small shunt. The aortic valve was trileaflet. Minimal aortic insufficiency. The left atrial appendage is large with what appears to be a thrombus seen at the mouth of the left atrial appendage. Patient did have some mild desaturations at this point and after seeing the thrombus, no further evaluation was needed and procedure was stopped. Cardioversion was therefore not attempted due to presence of thrombus. Conclusions: 1. LV dilatation with severe LV dysfunction with ejection fraction of 20-25% 2. Left atrial enlargement 3. Xobg-bo-mfhzifqs mitral regurgitation 4. Mild tricuspid regurgitation 5. Left atrial appendage is large and a thrombus is noted at the mouth of the appendage 6. Moderate sedation
--- NOTE | 2020-05-08 10:35 | SUR.PHASEII ---
CONDITION UPDATE TO SIA EMERY ULTRASOUND MANAGER. UPDATED THAT PT STILL WITH DROWSINESS AND SATS 89-90% ON ROOM AIR. MAGNESIUM SULFATE 4GM IVPB COMPLETE AT 1005.
--- NOTE | 2020-05-08 11:00 | SUR.PHASEII ---
AWAKE AND ALERT. SWALLOWING WITHOUT DIFFICULTY. UP TO BATHROOM TO VOID, STEADY GAIT. AWAIT DISCHARGE ORDERS.
--- NOTE | 2020-05-08 12:10 | SUR.PHASEII ---
DISCHARGE INSTRUCTIONS HAVE BEEN REVIEWED W/ PT AND QUESTIONS ANSWERED. PT'S HERE TO PICK HER UP. PER SIA EMERY CHECK WRITER, PT. IS TO STOP [facility], [address], TO OBTAIN HOLTER MONITOR TO WEAR PRIOR TO EXITING HOSPITAL FOR DISCHARGE HOME. VOICED UNDERSTANDING.
--- NOTE | 2020-05-08 12:15 | SUR.PHASEII ---
DISCHARGED HOME, OUT VIA WC WITH ALL PERSONAL BELONGINGS AND DISCHARGE PACKET, STOPPING BY TO OBTAIN HOLTER MONITOR FROM DR. GRIJALVA'S OFFICE [address], ON WAY OUT TO 'S CAR. VOICES NO C/O. NO DISTRESS NOTED.
== END 2020-05-08 12:15 | disposition home or self-care (01) ==
PROVIDERS: PCP Emergency Medicine; Visit Provider Internal Medicine Cardiovascular Disease
PROC: (CPT 93312; principal; 2020-05-08 08:30)
DX: I42.8 Other cardiomyopathies (principal); I48.91 Unspecified atrial fibrillation; I50.22 Chronic systolic (congestive) heart failure; I08.1 Rheumatic disorders of both mitral and tricuspid valves; I11.0 Hypertensive heart disease with heart failure; E11.9 Type 2 diabetes mellitus without complications; E78.5 Hyperlipidemia, unspecified; Z79.01 Long term (current) use of anticoagulants
CPT/HCPCS: 36415; 80048; 83735; 93005; 93312; 93320; 93325; J2250; J3010; J3475; J7040

== ENCOUNTER 2020-06-15 08:24 | Outpatient (CLI) | payer MEDICARE, OTHER, SELFPAY ==
--- NOTE | 2020-06-18 12:49 | WPDSIXMINUTE ---
Six Minute Walk Six Minute Walk: The patients O2 sats started at 97% and dropped as low as 96% Total walk distance 213.36 meters conclusion: This patient does not qualify for home oxygen use
== END 2020-06-15 08:25 | disposition home or self-care (01) ==
PROVIDERS: PCP Emergency Medicine; Visit Provider Nurse Practitioner Family
DX: R06.02 Shortness of breath (principal)
CPT/HCPCS: 94618

== ENCOUNTER 2020-06-20 08:40 | Outpatient (CLI) | payer MEDICARE, OTHER, SELFPAY ==
--- NOTE | 2020-07-17 10:32 | WPDHOMESLEEP ---
Sleep Study - Home Unattended Date of Study: 06/20/20 Ordering Provider: Jocelyn Burgos MD Interpreting Physician: Mylene Narvaez MD Home Sleep Study Type: Apnea Link Air Height: 1.65 m Weight: 99.79 kg Body Mass Index: 36.6 Neck Circumference (inches): 17.5 [place]: 6 Reason for Sleep Study Apnea link in the hospital with a saturation of 70%, mild pulmonary hypertension Sleep History Karly Jon is a 64 yo female with a history of atrial fib. She was in the hospital for a week, placed on blood thinners diuretics with improvement. She is now being evaluated due to pulmonary hypertension and an apnea link in the hospital that showed severe desaturation to 70%. She occasionally snores, occasionally its lateral left the the others complain about it. She frequently awakens at night with heartburn belching or coughing. She does not awaken from sleep feeling short of breath. She frequently has trouble sleep with a cold. She rarely wakes up gasping for breath at night, occasionally has breathing problems at night observed by others, frequently sweats excessively at night, notices her heart pounding irregularly at night, frequently falls asleep during the day frequently involuntarily. She does not fall asleep while driving. She does not fall asleep during physical effort. She does not have loss of muscle tone was strong emotion. She does not have daytime difficulties due to excessive sleepiness. She is currently retired. She does not feel paralyzed on waking or falling asleep. She rarely has vivid dreamlike scenes upon awakening or falling asleep. She has never for a to go to sleep. She rarely has nightmares. She occasional remembers her dreams. rarely feels sad depressed or anxious, never has muscular tension or notices parts of her body jerking. Occasionally kicks at night, rarely has crawling and aching feelings in her legs. She occasionally has leg pain at night, never has morning jaw pain. She occasionally grinds her teeth during sleep. She occasion is bothered by pain during the day, occasionally is awakened by pain at night and occasionally wakes up feeling stiff in the morning. She frequently wakes up with sore achy muscles. She rarely wakes up with pain in the neck and spine. She has headaches palpitations and memory problems. normal bedtime is midnight falling asleep within 15 minutes waking once at night just for a short while, will go to the bathroom. She then returns to sleep. She wakes at 9 in the morning. On the weekends she goes to bed at midnight wakes at 7:00 a.m.. She does not take naps. A short nap is not refreshing. She feels better in the afternoon then other times of day Habits: quit tobacco January 1992. Caffeine 16 oz a day. No alcohol or recreational drugs. [facility] Past Medical History Medical History Arthritis Atrial fibrillation with rapid ventricular response Breast cancer Cancer CHF (congestive heart failure) Depression Diabetes H/O thyroid disease Hypertension Obesity MARIA LUISA (obstructive sleep apnea) Surgical History Surgical History H/O lumpectomy right breast, 05/2009 H/O tubal ligation 06/1978 History of hip replacement right, 05/2017 S/P total hip arthroplasty Family History Family History Father , 55 Family history of malignant neoplasm of stomach Alcoholic Type 2 diabetes mellitus with diabetic neuropathy, unspecified Mother , 74 Family history of congestive heart failure Type 2 diabetes mellitus with diabetic neuropathy, unspecified Sibling Congestive heart failure Sibling Brain tumor Blood clot in vein Diabetes mellitus type 2 with complications Other Cataracts, bilateral Cerebrovascular accident Depression Diabetes mellitus Family history of alcoholism Family history of ck
[2020-07-17 10:45] VITALS: BMI 36.6
== END 2020-06-20 08:41 | disposition home or self-care (01) ==
LOC: ANHCSM 08:45
PROVIDERS: PCP Emergency Medicine; Visit Provider Internal Medicine Critical Care Medicine
DX: G47.30 Sleep apnea, unspecified (principal); G47.33 Obstructive sleep apnea (adult) (pediatric); I48.91 Unspecified atrial fibrillation; I11.0 Hypertensive heart disease with heart failure; I50.9 Heart failure, unspecified; I34.0 Nonrheumatic mitral (valve) insufficiency; I27.20 Pulmonary hypertension, unspecified; J44.9 Chronic obstructive pulmonary disease, unspecified; E66.9 Obesity, unspecified; F32.9 Major depressive disorder, single episode, unspecified; Z85.3 Personal history of malignant neoplasm of breast; Z96.641 Presence of right artificial hip joint; Z87.891 Personal history of nicotine dependence
CPT/HCPCS: 95806

== ENCOUNTER 2020-06-26 11:49 | Outpatient (CLI) | payer MEDICARE, OTHER, SELFPAY ==
[2020-06-26 12:36] LABS: Magnesium 1.7 mg/dL (1.6-2.3)
== END 2020-06-26 11:50 | disposition home or self-care (01) ==
PROVIDERS: PCP Emergency Medicine; Visit Provider Nurse Practitioner Adult Health
DX: E83.42 Hypomagnesemia (principal)
CPT/HCPCS: 36415; 83735

== ENCOUNTER 2020-07-09 01:12 | Outpatient (CLI) | payer MEDICARE, OTHER, SELFPAY ==
[2020-07-09 19:58] LABS: SARS-CoV-2 RNA PCR Negative
== END 2020-07-09 01:13 | disposition home or self-care (01) ==
LOC: ANHCOVIDDT 01:13
PROVIDERS: PCP Emergency Medicine; Visit Provider Internal Medicine Cardiovascular Disease
DX: Z01.812 Encounter for preprocedural laboratory examination (principal); Z20.828 Contact with and (suspected) exposure to other viral communicable diseases
CPT/HCPCS: 87635; C9803; U0003

== ENCOUNTER 2020-07-11 02:42 | Day surgery (SDC) | payer MEDICARE, OTHER, SELFPAY ==
[2020-07-11] VITALS (10 sets, daily range): BP systolic 105–132; BP diastolic 57–99; PULSE 73–94; RESP 12–21; TEMP 36.1–36.6; O2SAT 93–98; BMI 35.1
--- NOTE | 2020-07-11 07:29 | ECG_ITS ---
Measurements Intervals [place] Rate: 79 P: MS: 0 QRS: -57 QRSD: 103 T: 76 QT: 351 QTc: 404 Interpretive Statements ATRIAL FIBRILLATION POOR R WAVE PROGRESSION, CONSIDER ANTERIOR INFARCT CONSIDER INFERIOR INFARCT, AGE INDETERMINATE BORDERLINE ST-T WAVE ABNORMALITY- HIGH LATERAL LEADS ABNORMAL ECG Electronically Signed On 07-11-2020 8:26:58 [employer] by Gustavo Sousa D.O.
[2020-07-11 07:59] LABS: Anion Gap 8 mmol/L (8-16); Blood Urea Nitrogen 10 mg/dL (7-17); Calcium 8.6 mg/dL (8.4-10.2); Carbon Dioxide 27 mmol/L (22-30); Chloride 105 mmol/L (98-107); Estimated CRCL calculation 107 ml/min; Estimated Glomerular Filt Rate > 60; Glucose 151 mg/dL (65-105); Magnesium 1.6 mg/dL (1.6-2.3); Potassium 3.9 mmol/L (3.4-5.0); Sodium 140 mmol/L (137-145)
--- NOTE | 2020-07-11 08:44 | WPDHPUPDATE1 ---
History and Physical Update Update Date/Time: 07/11/20 08:44 Subjective: Atrial fibrillation remains Objective: Irregular irregular Assessment: Atrial fibrillation Plan HATTIE guided cardioversion History and Physical has been reviewed, including an updated exam of the patient. There are NO changes in the patient's condition. Risks, benefits, and alternatives have been discussed and questions answered. Patient agrees to proceed with procedure.
--- NOTE | 2020-07-11 08:45 | WPDMODSED ---
Moderate Sedation Note-Pt Data Patient Data Diagnosis: atrial fibrillation Present Complaint: atrial fibrillation Procedure to be performed/Plan: HATTIE guided cardioversion Allergies Allergy/AdvReac Type Severity Reaction Status Date / Time lisinopril Allergy Unknown Hives Verified 06/18/20 09:01 Home Medications Medication Instructions Recorded Confirmed Type sertraline 25 mg tablet 25 mg PO DAILY 01/10/20 07/11/20 History atorvastatin 20 mg tablet 20 mg PO QPM #90 tablet 01/11/20 07/11/20 Rx levothyroxine 112 mcg tablet 112 mcg PO QPM #90 tablet 01/11/20 07/11/20 Rx pantoprazole 20 mg tablet,delayed 20 mg PO QAM #90 tablet 01/11/20 07/11/20 Rx release albuterol sulfate [ProAir HFA] 1 - 2 puff INHALATION Q4-6H PRN 03/28/20 07/11/20 History Eliquis 5 mg PO Q12HR #60 tablet 04/03/20 07/11/20 Rx digoxin 125 mcg PO QAM #30 tablet 04/03/20 07/11/20 Rx gabapentin 100 mg capsule 100 mg PO TID #270 cap 04/09/20 07/11/20 Rx furosemide [Lasix] 20 mg PO DAILY 05/07/20 07/11/20 History losartan [Cozaar] 12.5 mg PO DAILY 05/07/20 07/11/20 History metoprolol succinate [Toprol XL] 100 mg PO DAILY 05/07/20 07/11/20 History fluticasone propionate 110 2 puff INHALATION Q12HRT #1 puff 05/09/20 07/11/20 Rx mcg/actuation HFA aerosol inhaler tiotropium bromide 18 mcg capsule 1 cap INHALATION DAILY #30 cap 05/09/20 07/11/20 Rx with inhalation device blood sugar diagnostic #200 each 05/15/20 07/11/20 Rx glipizide 5 mg tablet 5 mg PO DAILY 90 Days #90 tablet 05/15/20 07/11/20 Rx magnesium oxide 400 mg PO DAILY 05/15/20 07/11/20 History metformin 1,000 mg tablet 1,000 mg PO BID 90 Days #180 tablet 05/15/20 07/11/20 Rx dulaglutide 1.5 mg/0.5 mL 1.5 mg SUB-Q WEEKLY 90 Days #6 ml 06/18/20 07/11/20 Rx subcutaneous pen injector Current Medications: Active Medications Magnesium Sulfate (Magnesium Sulf 2 Gm/Water 50ml) 2 gm in 50 mls @ 50 mls/hr IVPB ONCE ONE Stop: 07/11/20 09:43 Sedation/Anesthesia: No previous sedation/anesthesia problems (including family history). [facility] Past Medical History Medical History Arthritis Atrial fibrillation with rapid ventricular response Breast cancer Cancer CHF (congestive heart failure) Depression Diabetes H/O thyroid disease Hypertension Obesity MARIA LUISA (obstructive sleep apnea) Surgical History Surgical History H/O lumpectomy right breast, 05/2009 H/O tubal ligation 06/1978 History of hip replacement right, 05/2017 S/P total hip arthroplasty Family History Family History Father , 55 Family history of malignant neoplasm of stomach Alcoholic Type 2 diabetes mellitus with diabetic neuropathy, unspecified Mother , 74 Family history of congestive heart failure Type 2 diabetes mellitus with diabetic neuropathy, unspecified Sibling Congestive heart failure Sibling Brain tumor Blood clot in vein Diabetes mellitus type 2 with complications Other Cataracts, bilateral Cerebrovascular accident Depression Diabetes mellitus Family history of alcoholism Family history of allergic disorder Family history of coronary artery disease Family history of malignant neoplasm Hypertension Obesity Social History Social History Social History: 16.9 ounces of caffeine per day per demographic sheet Smoking packs per day: 2 Smoking cigarettes per day: 40.0 Years smoked: 20 Smoking pack-years: 40.00 Smoking status: Former smoker Tobacco type: cigarettes Second hand tobacco smoke exposure: Yes Smoking end date: 09/07/91 Alcohol intake: never Substance use: never Substance use type: does not use Last use: 1991 Gender identity (if verbalized by the patient): Female Spiritual care concerns: No Mod Sed Physic
--- NOTE | 2020-07-11 09:10 | P.PCNTEECA_ITS ---
HATTIE with Cardioversion Date of procedure: 07/11/20 Procedure Type: multiplanar transesophageal echocardiography with color-flow pulse-wave Doppler Electrocardioversion Moderate sedation Diagnosis: atrial fibrillation Indications: atrial fibrillation Description of Procedure: after discussing the risks, benefits and alternatives of the procedure the patient agreeable for you verbal and written informed consent. Risks discussed included esophageal rupture perforation, need for surgery, shocking into more problematic rhythm, need for emergent surgery,, stroke, skin irritation or burn. After time-out was taken and after already established continuous repair order clerk, pulse oxygenation and serial blood pressure assessments, procedure was initiated. Complications: None Blood loss: None Procedure start time 8:54 a.m. Procedure stop time 9:09 a.m. Patient was monitored and medications were administered by Melanie Lewis RN Sedation: Hurricaine spray to hypopharynx x2 for topical anesthetic. Total of 4 mg of Versed and 50 mcg of fentanyl given in divided dosages. Findings: Severe LV dysfunction ejection fraction 20 25%. Mild LV enlargement. normal right ventricular size and function. Right atrial size is mildly enlarged. Moderate right atrial enlargement. Mitral valve shows moderate mitral regurgitation. Mild tricuspid regurgitation. Normal tricuspid valve. Normal mitral valve in appearance. Atrial septum does show color flow evidence of shunting. Left atrial appendage appears is interrogated. Pulse- wave velocities of up to 50 centimeters/second. at the mouth of the left atrial appendage there appears to be a ridge. This is unchanged as compared to previous HATTIE is. Despite full anticoagulation For months, there is no change and how this area looks which certainly makes a thrombus much less likely. when further interrogating, again this area appears to be much more like a ridge. It is not truly would like a thrombus As it tracks across the mouth of the appendage. Decision was made at that point to proceed on for cardioversion. First attempt using 125 joules of synchronized biphasic energy was unsuccessful. Second time using 200 joules of synchronized biphasic energy was successful. Conclusion: 1. Severe LV dysfunction with LV enlargement 2. Moderate mitral regurgitation 3. Mild tricuspid regurgitation 4. Successful adventism of sinus rhythm using 200 joules of biphasic synchronized energy 5. Moderate sedation
--- NOTE | 2020-07-11 09:10 | SUR.OPER ---
Electrical cardioversion 1 at 125J delivered at 0908 by MD Collier. Electrical cardioversion 2 at 200J delivered at 0909 by MD Collier with pt. in sinus rhythm at this time.
[2020-07-11] MEDS: MAGNESIUM SULF 2 GM/WATER 50ML 2 GM/50 ML BAG IVPB (09:11)
--- NOTE | 2020-07-11 09:15 | ECG_ITS ---
Measurements Intervals [place] Rate: 73 P: 25 VA: 210 QRS: -64 QRSD: 101 T: 83 QT: 405 QTc: 448 Interpretive Statements SINUS RHYTHM ATRIAL PREMATURE COMPLEXES LEFT AXIS DEVIATION BORDERLINE AV CONDUCTION DELAY LOW QRS VOLTAGE IN PRECORDIAL LEADS BORDERLINE R WAVE PROGRESSION, ANTERIOR LEADS BORDERLINE T WAVE ABNORMALITY- DIFFUSE LEADS BORDERLINE ECG Electronically Signed On 07-11-2020 9:23:22 BLOCKING MACHINE TENDER by Gustavo Sousa D.O.
--- NOTE | 2020-07-11 10:37 | SUR.PHASEII ---
Pt. given discharge education following HATTIE/cardioversion. Pt. verbalizes understanding of education. Pt. escorted to private vehicle via wheelchair to be driven home by spouse. Pt. in no apparent distress upon discharge.
== END 2020-07-11 10:54 | disposition home or self-care (01) ==
PROVIDERS: PCP Emergency Medicine; Visit Provider Internal Medicine Cardiovascular Disease
PROC: (CPT 93312; principal; 2020-07-11 08:30)
PROC: 5A2204Z Restoration of Cardiac Rhythm, Single (ICD-10-PCS; 2020-07-11 08:30)
DX: I48.91 Unspecified atrial fibrillation (principal); I34.0 Nonrheumatic mitral (valve) insufficiency; I36.1 Nonrheumatic tricuspid (valve) insufficiency; I11.0 Hypertensive heart disease with heart failure; I50.9 Heart failure, unspecified; G47.33 Obstructive sleep apnea (adult) (pediatric); E11.9 Type 2 diabetes mellitus without complications; F32.9 Major depressive disorder, single episode, unspecified; Z85.3 Personal history of malignant neoplasm of breast; Z79.84 Long term (current) use of oral hypoglycemic drugs; Z79.01 Long term (current) use of anticoagulants; Z87.891 Personal history of nicotine dependence
CPT/HCPCS: 36415; 80048; 83735; 92960; 93005; 93312; 93320; 93325; J2250; J3010; J3475; J7040

== ENCOUNTER 2020-08-10 02:22 | Outpatient (CLI) | payer MEDICARE, OTHER, SELFPAY ==
[2020-08-10 19:10] LABS: SARS-CoV-2 RNA PCR Negative
== END 2020-08-10 02:23 | disposition home or self-care (01) ==
LOC: ANHCOVIDDT 02:22
PROVIDERS: PCP Emergency Medicine; Visit Provider Internal Medicine Critical Care Medicine
DX: Z20.828 Contact with and (suspected) exposure to other viral communicable diseases (principal)
CPT/HCPCS: 87635; C9803; U0003

== ENCOUNTER 2020-08-13 07:56 | Outpatient (CLI) | payer MEDICARE, OTHER, SELFPAY ==
--- NOTE | 2020-09-25 09:51 | WPDSLEEPSTUD ---
Sleep Study Date of Study: 08/13/20 Ordering Provider: Dr. Mylene Narvaez Interpreting Physician: Sleep Study Type: BiPAP Titration Height: 1.65 m Weight: 99.79 kg Body Mass Index: 36.6 Neck Circumference: 44.45 cm [place]: 6 Reason for Sleep Study previous home study showed presence of moderate obstructive sleep apnea with some central events. In lab positive airway pressure titration was therefore recommended. Sleep History Non refreshing sleep, daytime fatigue. Daytime mild somnolence. She had documented hypoxia during night when hospitalized. [facility] Past Medical History Medical History Arthritis Atrial fibrillation with rapid ventricular response Breast cancer Cancer CHF (congestive heart failure) Depression Diabetes H/O thyroid disease Hypertension Obesity MARIA LUISA (obstructive sleep apnea) Surgical History Surgical History H/O lumpectomy right breast, 05/2009 H/O tubal ligation 06/1978 History of hip replacement right, 05/2017 S/P total hip arthroplasty Family History Family History Father , 55 Family history of malignant neoplasm of stomach Alcoholic Type 2 diabetes mellitus with diabetic neuropathy, unspecified Mother , 74 Family history of congestive heart failure Type 2 diabetes mellitus with diabetic neuropathy, unspecified Sibling Congestive heart failure Sibling Brain tumor Blood clot in vein Diabetes mellitus type 2 with complications Other Cataracts, bilateral Cerebrovascular accident Depression Diabetes mellitus Family history of alcoholism Family history of allergic disorder Family history of coronary artery disease Family history of malignant neoplasm Hypertension Obesity Social History Social History Social History: 16.9 ounces of caffeine per day per demographic sheet Smoking packs per day: 2 Smoking cigarettes per day: 40.0 Years smoked: 20 Smoking pack-years: 40.00 Smoking status: Former smoker Tobacco type: cigarettes Second hand tobacco smoke exposure: Yes Smoking end date: 09/07/91 Alcohol intake: never Substance use: never Substance use type: does not use Last use: 1991 Gender identity (if verbalized by the patient): Female Spiritual care concerns: Yes Medications Home Medications Medication Instructions Recorded Confirmed Type pantoprazole 20 mg tablet,delayed 20 mg PO QAM #90 tablet 01/11/20 09/14/20 Rx release albuterol sulfate [ProAir HFA] 1 - 2 puff INHALATION Q4-6H PRN 03/28/20 09/13/20 History Eliquis 5 mg PO Q12HR #60 tablet 04/03/20 09/14/20 Rx furosemide [Lasix] 20 mg PO DAILY 05/07/20 09/13/20 History losartan [Cozaar] 12.5 mg PO DAILY 05/07/20 09/13/20 History metoprolol succinate [Toprol XL] 100 mg PO DAILY 05/07/20 09/13/20 History fluticasone propionate 110 2 puff INHALATION Q12HRT #1 puff 05/09/20 09/13/20 Rx mcg/actuation HFA aerosol inhaler tiotropium bromide 18 mcg capsule 1 cap INHALATION DAILY #30 cap 05/09/20 09/13/20 Rx with inhalation device blood sugar diagnostic #200 each 05/15/20 07/11/20 Rx glipizide 5 mg tablet 5 mg PO DAILY 90 Days #90 tablet 05/15/20 09/13/20 Rx magnesium oxide 400 mg PO DAILY 05/15/20 09/13/20 History dulaglutide 1.5 mg/0.5 mL 1.5 mg SUB-Q WEEKLY 90 Days #6 ml 06/18/20 09/13/20 Rx subcutaneous pen injector sertraline 25 mg tablet 25 mg PO DAILY #90 tablet 08/06/20 09/13/20 Rx metformin 1,000 mg tablet 1,000 mg PO BID 90 Days #180 tablet 08/07/20 09/13/20 Rx amiodarone 200 mg PO BID 09/13/20 09/13/20 History atorvastatin 20 mg PO DAILY 09/13/20 09/13/20 History cranberry 500 mg PO DAILY 09/13/20 09/13/20 History gabapentin 100 mg PO DAILY 09/13/20 09/13/20 History levothyroxine 112 mcg PO DAILY 09/13/20 01
[2020-09-25 10:00] VITALS: BMI 36.6
== END 2020-08-13 07:57 | disposition home or self-care (01) ==
LOC: ANHCSM 07:56
PROVIDERS: PCP Emergency Medicine; Visit Provider Internal Medicine Critical Care Medicine
DX: G47.33 Obstructive sleep apnea (adult) (pediatric) (principal)
CPT/HCPCS: 95811

== ENCOUNTER 2020-09-11 00:53 | Outpatient (CLI) | payer MEDICARE, OTHER, SELFPAY ==
[2020-09-11 19:42] LABS: SARS-CoV-2 RNA PCR Negative
== END 2020-09-11 00:54 | disposition home or self-care (01) ==
LOC: ANHCOVIDDT 00:53
PROVIDERS: PCP Emergency Medicine; Visit Provider Internal Medicine Cardiovascular Disease
DX: Z01.812 Encounter for preprocedural laboratory examination (principal); Z20.822 Contact with and (suspected) exposure to COVID-19
CPT/HCPCS: C9803; U0003

== ENCOUNTER 2020-09-14 05:20 | Day surgery (SDC) | payer MEDICARE, OTHER, SELFPAY ==
[2020-09-13 15:50] VITALS: BMI 36.6
[2020-09-14] VITALS (7 sets, daily range): BP systolic 117–137; BP diastolic 57–86; PULSE 66–90; RESP 15–19; TEMP 36.2–36.4; O2SAT 91–100; BMI 36.3
--- NOTE | 2020-09-14 02:12 | ECG_ITS ---
Measurements Intervals [place] Rate: 88 P: HI: 0 QRS: -57 QRSD: 99 T: 62 QT: 389 QTc: 473 Interpretive Statements ATRIAL FIBRILLATION LEFT AXIS DEVIATION POOR R WAVE PROGRESSION, ANTERIOR LEADS INFERIOR INFARCT, AGE INDETERMINATE BORDERLINE ST-T WAVE ABNORMALITY- HIGH LATERAL LEADS ABNORMAL ECG Electronically Signed On 09-14-2020 7:21:12 WIND ENERGY ENGINEER by Gustavo Sousa D.O.
[2020-09-14 07:49] LABS: Anion Gap 7 mmol/L (8-16); Blood Urea Nitrogen 17 mg/dL (7-17); Carbon Dioxide 28 mmol/L (22-30); Chloride 105 mmol/L (98-107); Estimated CRCL calculation 93 ml/min; Estimated Glomerular Filt Rate > 60; Glucose 115 mg/dL (65-105); Magnesium 1.8 mg/dL (1.6-2.3); Potassium 4.2 mmol/L (3.4-5.0); Sodium 140 mmol/L (137-145)
--- NOTE | 2020-09-14 07:57 | SUR.PREOP ---
Patient arrives ambulatory to [facility]. Patient denies pain at time of arrival. EKG obtained, VSS, PIV initiated and labs sent. Consent signed. Patient updated on plan of care and verbalizes understanding. Will continue to closely monitor patient.
--- NOTE | 2020-09-14 08:34 | WPDMODSED ---
Moderate Sedation Note-Pt Data Patient Data Diagnosis: Atrial fibrillation Present Complaint: Atrial fibrillation Procedure to be performed/Plan: Electrical cardioversion Moderate sedation Allergies Allergy/AdvReac Type Severity Reaction Status Date / Time lisinopril Allergy Unknown Hives Verified 09/13/20 15:56 Home Medications Medication Instructions Recorded Confirmed Type pantoprazole 20 mg tablet,delayed 20 mg PO QAM #90 tablet 01/11/20 09/14/20 Rx release albuterol sulfate [ProAir HFA] 1 - 2 puff INHALATION Q4-6H PRN 03/28/20 09/13/20 History Eliquis 5 mg PO Q12HR #60 tablet 04/03/20 09/14/20 Rx furosemide [Lasix] 20 mg PO DAILY 05/07/20 09/13/20 History losartan [Cozaar] 12.5 mg PO DAILY 05/07/20 09/13/20 History metoprolol succinate [Toprol XL] 100 mg PO DAILY 05/07/20 09/13/20 History fluticasone propionate 110 2 puff INHALATION Q12HRT #1 puff 05/09/20 09/13/20 Rx mcg/actuation HFA aerosol inhaler tiotropium bromide 18 mcg capsule 1 cap INHALATION DAILY #30 cap 05/09/20 09/13/20 Rx with inhalation device blood sugar diagnostic #200 each 05/15/20 07/11/20 Rx glipizide 5 mg tablet 5 mg PO DAILY 90 Days #90 tablet 05/15/20 09/13/20 Rx magnesium oxide 400 mg PO DAILY 05/15/20 09/13/20 History dulaglutide 1.5 mg/0.5 mL 1.5 mg SUB-Q WEEKLY 90 Days #6 ml 06/18/20 09/13/20 Rx subcutaneous pen injector sertraline 25 mg tablet 25 mg PO DAILY #90 tablet 08/06/20 09/13/20 Rx metformin 1,000 mg tablet 1,000 mg PO BID 90 Days #180 tablet 08/07/20 09/13/20 Rx amiodarone 200 mg PO BID 09/13/20 09/13/20 History atorvastatin 20 mg PO DAILY 09/13/20 09/13/20 History cranberry 500 mg PO DAILY 09/13/20 09/13/20 History gabapentin 100 mg PO DAILY 09/13/20 09/13/20 History levothyroxine 112 mcg PO DAILY 09/13/20 09/13/20 History Sedation/Anesthesia: No previous sedation/anesthesia problems (including family history). [facility] Past Medical History Medical History Arthritis Atrial fibrillation with rapid ventricular response Breast cancer Cancer CHF (congestive heart failure) Depression Diabetes H/O thyroid disease Hypertension Obesity MARIA LUISA (obstructive sleep apnea) Surgical History Surgical History H/O lumpectomy right breast, 05/2009 H/O tubal ligation 06/1978 History of hip replacement right, 05/2017 S/P total hip arthroplasty Family History Family History Father , 55 Family history of malignant neoplasm of stomach Alcoholic Type 2 diabetes mellitus with diabetic neuropathy, unspecified Mother , 74 Family history of congestive heart failure Type 2 diabetes mellitus with diabetic neuropathy, unspecified Sibling Congestive heart failure Sibling Brain tumor Blood clot in vein Diabetes mellitus type 2 with complications Other Cataracts, bilateral Cerebrovascular accident Depression Diabetes mellitus Family history of alcoholism Family history of allergic disorder Family history of coronary artery disease Family history of malignant neoplasm Hypertension Obesity Social History Social History Social History: 16.9 ounces of caffeine per day per demographic sheet Smoking packs per day: 2 Smoking cigarettes per day: 40.0 Years smoked: 20 Smoking pack-years: 40.00 Smoking status: Former smoker Tobacco type: cigarettes Second hand tobacco smoke exposure: Yes Smoking end date: 09/07/91 Alcohol intake: never Substance use: never Substance use type: does not use Last use: 1991 Living arrangements: with family Gender identity (if verbalized by the patient): Female Sexual Orientation (if Verbalized by the Patient): Straight or Heterosexual Spiritual care concerns: Yes Mod Sed Physical Exam Physical Exam Pre Pr
--- NOTE | 2020-09-14 08:45 | ECG_ITS ---
Measurements Intervals Drifting Rate: 67 P: 27 NC: 227 QRS: -54 QRSD: 99 T: 54 QT: 432 QTc: 459 Interpretive Statements SINUS RHYTHM WITH FIRST DEGREE AV BLOCK LEFT AXIS DEVIATION POOR R WAVE PROGRESSION, ANTERIOR LEADS INFERIOR INFARCT, AGE INDETERMINATE BORDERLINE ST-T WAVE ABNORMALITY- HIGH LATERAL LEADS ABNORMAL ECG Electronically Signed On 09-14-2020 9:11:32 DRUM OPERATOR by Gustavo Sousa D.O.
--- NOTE | 2020-09-14 08:46 | P.PCNCVR_ITS ---
Cardioversion Cardioversion Date of procedure: 09/14/20 Procedure: 1. Electrical cardioversion 2. Moderate sedation Pre-op diagnosis: Atrial fibrillation Post-op diagnosis: same Indications: Atrial fibrillation Description of procedure: After discussing the risks, benefits alternatives of the procedure the patient agreeable via verbal and written informed consent. After establishing continuous phototypesetting equipment monitor, pulse oxygenation and serial blood pressure assessments, procedure was initiated. Risks discussed included skin irritation or burn, shocking into a more problematic heart rhythm, stroke, adverse reaction to anesthesia. Procedure start time 8:39 a.m. Procedure stop time 8:43 a.m. Medications provided 3 mg of Versed and 25 mcg of fentanyl given in divided dosages Medications were provided and patient was monitored by Melanie Morfin RN Complications: None Blood loss: None Sedation: As above Findings: After adequate sedation, the previously placed anterior and posterior defibrillator pads were utilized. Two hundred joules of synchronized biphasic energy was provided which restored sinus rhythm from atrial fibrillation. Conclusion: 1. Successful taoism of sinus rhythm from atrial fibrillation using 200 joules of synchronized biphasic energy 2. Moderate sedation
--- NOTE | 2020-09-14 10:15 | SUR.PHASEII ---
1015 Discharge instructions reviewed with patient, questions answered she verbalizes understanding, IV d/c'd, cath intact, pressure applied. Pt transported to [facility] via wheelchair where her picked her up and drove her home in private vehicle.
== END 2020-09-14 10:17 | disposition home or self-care (01) ==
PROVIDERS: PCP Emergency Medicine; Visit Provider Internal Medicine Cardiovascular Disease
PROC: 5A2204Z Restoration of Cardiac Rhythm, Single (ICD-10-PCS; principal; 2020-09-14 08:30)
DX: I48.91 Unspecified atrial fibrillation (principal); I21.9 Acute myocardial infarction, unspecified; I25.5 Ischemic cardiomyopathy; I11.0 Hypertensive heart disease with heart failure; E11.9 Type 2 diabetes mellitus without complications; E78.5 Hyperlipidemia, unspecified; E03.9 Hypothyroidism, unspecified; K21.9 Gastro-esophageal reflux disease without esophagitis; E66.8 Other obesity; Z68.36 Body mass index [BMI] 36.0-36.9, adult; Z85.3 Personal history of malignant neoplasm of breast; M19.90 Unspecified osteoarthritis, unspecified site; F41.8 Other specified anxiety disorders; R06.00 Dyspnea, unspecified; I50.22 Chronic systolic (congestive) heart failure; I42.8 Other cardiomyopathies; Z79.01 Long term (current) use of anticoagulants; I44.0 Atrioventricular block, first degree
CPT/HCPCS: 36415; 80048; 83735; 92960; 93005; J2250; J3010; J7040

== ENCOUNTER 2020-11-12 11:37 | Outpatient (CLI) | payer MEDICARE, OTHER, SELFPAY | END 2020-11-12 11:38 | disposition home or self-care (01) | LOC: ANHCOVIDVC 11:37 | PROVIDERS: PCP Emergency Medicine | DX: Z23 Encounter for immunization (principal) | CPT/HCPCS: 0001A; 91300 ==

== ENCOUNTER 2020-12-03 11:38 | Outpatient (CLI) | payer MEDICARE, OTHER, SELFPAY | END 2020-12-03 11:39 | disposition home or self-care (01) | LOC: ANHCOVIDVC 11:38 | PROVIDERS: PCP Emergency Medicine | DX: Z23 Encounter for immunization (principal) | CPT/HCPCS: 0002A; 91300 ==

== ENCOUNTER 2021-02-07 18:03 | IRF | payer MEDICARE, OTHER, SELFPAY ==
--- NOTE | 2021-02-07 18:01 | ADMGEN ---
This patient, Karly Jon, was admitted to [facility] Room 221-02. Patient/family oriented to hospital policies and general routines including ID bracelet, bed and alarms, visiting hours, pain management, procedures, bathroom and other care routines, personal items, smoking policy, room service/diet, and visiting hours. Information on how to activate the Rapid Response Team has been discussed. Patient/Family are encouraged to report perceived risks to care and to ask questions if they do not understand what they are told or what they should do.
[2021-02-07 18:25] LABS: Glucose Point of Care 140 mg/dl (65-105)
--- NOTE | 2021-02-07 18:53 | WPDREHABHP ---
H&P: HPI History of Present Illness Date/Time: 02/07/21 18:53 Chief Complaint: subdural hematoma Narrative: HISTORY OF PRESENT ILLNESS: The patient's primary rehab impairment category is brain dysfunction traumatic 0 2 The etiologic diagnosis is traumatic subdural hematoma, sub arachnoid hemorrhage, status post right craniotomy and evacuation 01/26/2021 I saw this patient [id number] on 02/07/2021 The patient is a 65-year-old female past medical history of congestive heart failure, atrial fib on Eliquis,( which is on hold due to craniotomy) , hypertension, hyperlipidemia, type 2 diabetes, hypothyroidism, GERD, breast cancer, anxiety, depression, and COPD who presented to [facility] on 01/26/2021 following a fall with positive loss of consciousness. Patient was intoxicated (per the chart but patient states that she does not drink) with her and had a non syncopal fall off of 1 step. Patient denies that she was drinking and states that she does not drink. Patient was M [facility] take to the event. Patient was sleepy but arousable with stable vitals in route to the emergency department. CT imaging demonstrated acute right subdural hematoma with midline shift, subarachnoid hemorrhage. Patient became under unresponsive and was intubated. Repeat CT revealed right subdural hematoma with increased midline shift. Patient was given PCC, mannitol, and Keppra and emergently taken to the operating room. Neuro surgery performed a right craniotomy and evacuation on 01/26/[address] Robison. The bone flap was replaced after evacuation. Subdural drain was placed and removed on 01.28.21. Patient was successfully extubated. Hospitalization was significant for hyperglycemia will which had poor response endocrinology was consulted and pay place the patient on Lantus metformin and Trulicity. Karly completed her course of Keppra on 02/06/2021. Her Eliquis is being held secondary to craniotomy. Patient did require reduced dose of metoprolol. Patient remained in normal sinus rhythm throughout her stay. Modified barium swallow test was performed and patient was placed on a carbohydrate diet regular with thin liquids. She is to follow up with Dr. Robison in [address] Song [phone]. She will be discharged on subcu heparin for DVT prophylaxis to the rehab unit. COVID: COVID-19 not detected on 02/07/2021. Patient has not traveled outside the [place] or had contact with anyone who has been outside of the [place] in the past 21 days. Patient has not had a fever nor experienced lower respiratory illness symptoms. Patient has not traveled to [place] area of the [place] that experiencing known transmission of the Coronavirus and has not had close personal contact with anyone with COVID. Therapy was initiated at the acute care facility and the patient transferred to us from [place] on 02/07/2021 FALLS OR SURGERIES: the patient has had major surgery this admission. Patient has had 2 or more falls in the past year. The patient has had falls with injury in the past year PRIOR LEVEL OF FUNCTION: Eating was [INDEPENDENT] Oral Care was [INDEPENDENT] Toileting Hygiene was [INDEPENDENT] Shower/Bathing was [INDEPENDENT] Upper Body Dressing was [INDEPENDENT] Lower Body Dressing was [INDEPENDENT] Donning/Alanreed Footwear was [INDEPENDENT] Rolling Left and Right was [INDEPENDENT] Sit to Lying was [INDEPENDENT] Lying to Sitting was [INDEPENDENT] Sit to Stand was [INDEPENDENT] Bed to Chair Transfers was [INDEPENDENT] Toilet Transfers was [INDEPENDENT] Walking was [INDEPENDENT] [>500 feet] with single point cane Wheelchair Mobility was NOT APPLICABLE PRIOR TO ADMISSION Stairs were INDEPENDENT CURRENT LEVEL OF FUNCTION: Eating was SET UP ONLY Oral Care was partial to moderate assist Toileting Hygiene was partial to moderate Shower/Bathing was partial to moderate assist Upper Body Dressing was partial to moderate assist Lower Body Dressi
[2021-02-07 18:55] VITALS: BP 124/54; PULSE 71; RESP 20; TEMP 36.4; O2SAT 99; BMI 36.8
[2021-02-07] MEDS: ALBUTEROL SULFATE (*SP) INHALER 2 PUFF INHALATION (20:00)
[2021-02-07 21:07] LABS: Glucose Point of Care 303 mg/dl (65-105)
[2021-02-07 22:00] VITALS: BP 119/70; PULSE 70; RESP 20; TEMP 36.4; O2SAT 97
[2021-02-07] MEDS: FLUTICASONE PROP 44 MCG (*SP) 10.6 GM 2 PUFF INHALATION (22:03)
[2021-02-07] MEDS: HEPARIN SODIUM 5,000 UNITS/ML VIAL 5000 UNITS SUB-Q (22:04)
[2021-02-07] MEDS: METOPROLOL TARTRATE 12.5 MG TABLET PO (22:04)
[2021-02-07] MEDS: DOCUSATE SODIUM 100 MG CAPSULE PO (22:05)
[2021-02-07] MEDS: TAMSULOSIN HCL 0.4 MG CAPSULE PO (22:07)
[2021-02-07] MEDS: INSULIN GLARGINE (*BKC) 100 UNITS/ML 20 UNITS SUB-Q (22:29)
[2021-02-08 05:13] LABS: Basophils Absolute Auto 0.1 K/mm3 (0.0-0.1); Basophils Percent Auto 0.8 % (0.2-1.2); Eosinophils Absolute Auto 0.1 K/mm3 (0-0.3); Eosinophils Percent Auto 1.4 % (0-4.4); Immature Granulocyte Absolute 0.31 K/mm3 (0.00-0.031); Immature Granulocyte Percent A 4.2 % (0-0.5); Lymphocytes Absolute Auto 1.14 K/mm3 (0.9-3.2); Lymphocytes Percent Auto 15.5 % (18.3-44.2); Mean Corpuscular Hemoglobin 30.3 pg (26-34); Mean Corpuscular Volume 97.6 fl (80-100); Mean Platelet Volume 11.3 fl (7.4-10.4); Monocytes Absolute Auto 0.8 K/mm3 (0.1-0.6); Monocytes Percent Auto 10.5 % (2.6-8.5); Neutrophils Percent Auto 67.6 % (45.5-73.1); Nucleated Red Blood Cells Perc 0.5 % (0.0-0.2); Platelet Count Result 225 k/mm3 (150-375); Red Blood Count 2.97 M/mm3 (4.2-5.4); White Blood Count 7.4 K/mm3 (4.5-10.0)
[2021-02-08 05:31] LABS: Alanine Aminotransferase 54 U/L (4-35); Albumin Level 3.2 g/dL (3.5-5.1); Alkaline Phosphatase 80 U/L (38-126); Anion Gap 6 mmol/L (8-16); Aspartate Amino Transferase 45 U/L (14-36); Bilirubin,Total 0.8 mg/dL (0.2-1.3); Blood Urea Nitrogen 13 mg/dL (7-17); Calcium 8.7 mg/dL (8.4-10.2); Carbon Dioxide 27 mmol/L (22-30); Chloride 106 mmol/L (98-107); Estimated CRCL calculation 80 ml/min; Estimated Glomerular Filt Rate > 60; Glucose 153 mg/dL (65-105); Sodium 139 mmol/L (137-145)
[2021-02-08 06:00] VITALS: BP 123/58; PULSE 69; RESP 20; TEMP 36.2; O2SAT 97
[2021-02-08] MEDS: LEVOTHYROXINE SODIUM 112 MCG TABLET PO (06:03)
[2021-02-08] MEDS: HEPARIN SODIUM 5,000 UNITS/ML VIAL 5000 UNITS SUB-Q ×3 (06:03→20:55)
[2021-02-08 06:23] LABS: Glucose Point of Care 151 mg/dl (65-105)
[2021-02-08] MEDS: FLUTICASONE PROP 44 MCG (*SP) 10.6 GM 2 PUFF INHALATION ×2 (08:52→20:55)
[2021-02-08] MEDS: FLUTICASONE/UMECLIDIN/VILANTER 100-62.5-25 MCG ELLIPTA 1 PUFF INHALATION (08:52)
[2021-02-08] MEDS: ATORVASTATIN 20 MG TABLET PO (08:53)
[2021-02-08] MEDS: metFORMIN HCL 500 MG TABLET 1000 MG PO ×2 (08:53→17:19)
[2021-02-08 08:54] VITALS: PULSE 69
[2021-02-08] MEDS: METOPROLOL TARTRATE 12.5 MG TABLET PO ×2 (08:54→20:55)
[2021-02-08] MEDS: DOCUSATE SODIUM 100 MG CAPSULE PO ×2 (08:54→20:55)
[2021-02-08] MEDS: FUROSEMIDE 20 MG TABLET PO (08:54)
[2021-02-08] MEDS: LOSARTAN POTASSIUM 25 MG TABLET PO (08:54)
[2021-02-08] MEDS: MAGNESIUM OXIDE 400 MG TABLET PO ×2 (08:54→17:19)
[2021-02-08] MEDS: GABAPENTIN 100 MG CAPSULE PO ×3 (08:54→17:19)
[2021-02-08] MEDS: SERTRALINE HCL 25 MG TABLET PO (08:55)
[2021-02-08] MEDS: polyethylene glycoL 3350 17 GM POWD.PACK PO (08:55)
[2021-02-08] MEDS: PANTOPRAZOLE SOD SESQUIHYDRATE 20 MG TAB PO (08:55)
[2021-02-08] MEDS: ALBUTEROL SULFATE (*SP) INHALER 2 PUFF INHALATION ×4 (09:08→20:55)
--- NOTE | 2021-02-08 09:44 | PCPTNOTE ---
Karly Jon was evaluated for a wheeled walker on 02/08/2021 by this physical therapist. The wheeled walker will resolve patient's mobility limitations and will be used for ADL's within the home. The patient can safely use the wheeled walker. ?The wheeled walker will resolve the patient?s mobility deficits, including poor endurance, balance deficits, and improve safety with functional mobility.
[2021-02-08 12:14] LABS: Glucose Point of Care 259 mg/dl (65-105)
[2021-02-08] MEDS: INSULIN ASPART (*BKC) 100 UNITS/ML SUB-Q ×2 (12:43→17:20)
[2021-02-08 13:25] VITALS: BMI 36.8
[2021-02-08 13:45] VITALS: BP 106/55; PULSE 77; RESP 20; TEMP 35.8; O2SAT 99
--- NOTE | 2021-02-08 14:29 | RPD ---
INDIVIDUALIZED PLAN OF CARE FOR Karly Jon Brief Synthesis of Pre-Admission Screen, Post-Admission Evaluation and Therapy Evaluations: The patient presents to rehab with a traumatic SDH/SAH s/p right craniotomy and evacuation on 01/26/2021. Comorbidities include atrial fibrillation, subdural drain, acute pain, diabetes mellitus type 2, hypertension, CHF, HLD, hyperlactatemia, ABLA, COPD, GERD, incidental left paratracheal soft tissue lesion, primary hypothyroidism, anxiety, depression, hyperglycemia, mild hyponatremia, hyperlipidemia, and obesity. The complexity of the patient's medical management, nursing, and therapy needs require an inpatient rehab hospital stay with a physician led interdisciplinary team approach. The patient?s needs will be best met in an intensive program vs. at a lower level of care. The patient requires physician services for medical oversight and coordination of care. Emotional needs will be monitored as depression is a common sequelae of stroke. The patient needs physician monitoring and treatment of anemia, perioperative blood loss, monitoring for adverse reactions to new medications, monitoring of infection, and pain control. The patient requires nursing services for frequent neuro checks, anticoagulation therapy, medication management and education, pressure relief and skin care management, monitoring of labs, bowel and bladder training, diabetes management and education, possible IV administration, and fall/safety precautions Deficits include:ADLs, Balance, Cognition, Endurance, Family Training/Education, Mobility, Pain Management, ROM, Safety, Strength, Transfers Chucking Machine Set Up Operator Tool/Case Management for: Discharge Planning and Patient/Family Counseling Physical Therapy: 5 days per week for 75 minutes. Treatments may include: Therapeutic Exercise, Gait Training, Neuromuscular Re-education, Transfer Training, Community Reintegration, Bed Mobility, Patient/Family Education, Wheelchair Mobility Group Therapy/Concurrent Therapy Rationales: -Improve attention span during functional activities in a distracted environment. -Enhance problem solving and/or adequate judgment skills during functional activities in a distracted environment. -Promote increased safety awareness in a distracted environment to reduce fall risk with functional tasks, transfers, and ambulation to allow a more safe, self-sufficient return to the home environment. -Improve dynamic balance skills to promote safety and independence with functional activities in a distracted environment for maximum gain. Occupational Therapy: 5 days per week for 75 minutes. Treatments may include: Therapeutic Exercise, Therapeutic Activity, Cognitive Training, Self-Care Transfer Training, Community Reintegration, Home Management, Patient/Family Education, Wheelchair Mobility Training, Energy Conservation Training Group Therapy/Concurrent Therapy Rationales: -Allow therapist to observe and teach generalization and carry-over of skills learned in individual therapy. -Enhance problem solving and sequencing skills during therapeutic activities in a distracted environment. -Promote increased safety awareness in a realistic setting to reduce fall risk with functional tasks due to visual and verbal distractions. -Increase functional level with ADLs, ADL transfers and use of adaptive equipment through therapeutic activities with others while promoting safety to allow a more safe, self-sufficient return home. Speech Therapy: 5 days per week for 30 minutes. Treatments may include: Dysphasia Therapy, Speech/Language/Communication Therapy, Cognitive Training, Patient/Family Education Group Therapy/Concurrent Therapy - Rationale: -Allow therapist to observe and teach generalization and carry-over of skills learned in individual therapy. -Improve comprehension skills with complex or abstract ideas through discussion in a realistic setting. -Enhance problem solving skills with complex issues during activitie
--- NOTE | 2021-02-08 14:49 | WPDNEURORHBP ---
Subjective Date/time seen: 02/08/21 14:49 Interval history: The patient's primary rehab impairment category is brain dysfunction traumatic 0 2 The etiologic diagnosis is traumatic subdural hematoma, sub arachnoid hemorrhage, status post right craniotomy and evacuation 01/26/2021 I saw this patient [id number] on 02/07/2021 The patient is a 65-year-old female past medical history of congestive heart failure, atrial fib on Eliquis,( which is on hold due to craniotomy) , hypertension, hyperlipidemia, type 2 diabetes, hypothyroidism, GERD, breast cancer, anxiety, depression, and COPD who presented to [facility] on 01/26/2021 following a fall with positive loss of consciousness. Patient was intoxicated (per the chart but patient and daughter states that she does not drink. Her was drunk and came into the ER the same night.) with her and had a non syncopal fall off of 1 step. Patient denies that she was drinking and states that she does not drink. Patient was M [place] take to the event. Patient was sleepy but arousable with stable vitals in route to the emergency department. CT imaging demonstrated acute right subdural hematoma with midline shift, subarachnoid hemorrhage. Patient became under unresponsive and was intubated. Repeat CT revealed right subdural hematoma with increased midline shift. Patient was given PCC, mannitol, and Keppra and emergently taken to the operating room. Neuro surgery performed a right craniotomy and evacuation on 01/26/[address] Robison. The bone flap was replaced after evacuation. Subdural drain was placed and removed on 01.28.21. Patient was successfully extubated. Hospitalization was significant for hyperglycemia will which had poor response endocrinology was consulted and pay place the patient on Lantus metformin and Trulicity. Karly completed her course of Keppra on 02/06/2021. Her Eliquis is being held secondary to craniotomy. Patient did require reduced dose of metoprolol. Patient remained in normal sinus rhythm throughout her stay. Modified barium swallow test was performed and patient was placed on a carbohydrate diet regular with thin liquids. She is to follow up with Dr. Robison in [address] Song [phone]. She will be discharged on subcu heparin for DVT prophylaxis to the rehab unit. Karly is pleased with her progress today with therapies. She is fatigued after therapies. Daughter is present and brought in her Trulicity and list of medications Review of Systems Review of Systems: All systems reviewed & are unremarkable except as noted in HPI and below Exam Narrative: Exam Narrative: Patient is shaved. Large right craniotomy is scar and sutures are present. Extraocular muscles are intact P. Face is symmetrical. Heart rate and rhythm is regular. Lung sounds are distant. Abdomen is obese. Bilateral upper and lower extremity strength are 4- out of 5 throughout endurance is limited. Objective Data Vital Signs Vital Signs: Vital Signs - 24 hr 02/07/21 18:55 02/07/21 22:00 02/08/21 06:00 Temperature 36.4 C L 36.4 C 36.2 C L Pulse Rate 71 70 69 Respiratory Rate 20 20 20 Blood Pressure 124/54 L 119/70 123/58 L Pulse Oximetry 99 97 97 02/08/21 08:54 02/08/21 13:45 Temperature 35.8 C L Pulse Rate 69 77 Respiratory Rate 20 Blood Pressure 106/55 L Pulse Oximetry 99 Intake/Output Intake/Output: Intake & Output 02/05/21 02/06/21 02/07/21 02/08/21 23:59 23:59 23:59 23:59 Intake Total 500 Balance 500 Meds/Results Medications: Active Medications Generic Name Dose Route Start Last Admin Trade Name Freq PRN Reason Stop Dose Admin Albuterol 2 puff 02/07/21 20:00 02/08/21 12:44 Albuterol Sulfate (*Sp) Inhaler INHALATION 2 puff QIDRT ZAID Administration Amiodarone HCl 200 mg 02/09/21 09:00 Amiodarone Hcl 200 Mg Tablet PO DAILY [facility] Atorvastatin Calcium 20 mg 02/08/21 09:00 02/08/21 08:53 Atorva
--- NOTE | 2021-02-08 15:39 | PCNSR ---
On 02/08/21, the student, Lorenza Benton, provided care and completed [facility] documentation on this patient. I have reviewed the student's documentation and agree with the findings.
--- NOTE | 2021-02-08 16:01 | PHAR ---
HOME MED VERIFIED = TRULICITY 1.5MG/0.5ML PREFILLED SYRINGE
[2021-02-08 17:02] LABS: Glucose Point of Care 269 mg/dl (65-105)
[2021-02-08] MEDS: PHARMACIST COMMUNICATION ORDER 1 EACH XX (17:18)
[2021-02-08] MEDS: TAMSULOSIN HCL 0.4 MG CAPSULE PO (20:54)
[2021-02-08 20:55] VITALS: PULSE 78
[2021-02-08] MEDS: INSULIN GLARGINE (*BKC) 100 UNITS/ML 20 UNITS SUB-Q (21:25)
[2021-02-08 22:00] VITALS: BP 132/64; PULSE 79; RESP 18; TEMP 35.9; O2SAT 96
[2021-02-09 02:09] LABS: Glucose Point of Care 153 mg/dl (65-105)
[2021-02-09 06:00] VITALS: BP 123/60; PULSE 70; RESP 18; TEMP 35.7; O2SAT 96
[2021-02-09] MEDS: LEVOTHYROXINE SODIUM 112 MCG TABLET PO (06:00)
[2021-02-09] MEDS: HEPARIN SODIUM 5,000 UNITS/ML VIAL 5000 UNITS SUB-Q ×3 (06:00→20:37)
[2021-02-09] MEDS: ALBUTEROL SULFATE (*SP) INHALER 2 PUFF INHALATION ×4 (08:45→20:37)
[2021-02-09] MEDS: FLUTICASONE PROP 44 MCG (*SP) 10.6 GM 2 PUFF INHALATION ×2 (08:45→20:37)
[2021-02-09 08:46] VITALS: PULSE 62
[2021-02-09] MEDS: LOSARTAN POTASSIUM 25 MG TABLET PO (08:46)
[2021-02-09] MEDS: DOCUSATE SODIUM 100 MG CAPSULE PO ×2 (08:46→20:37)
[2021-02-09] MEDS: SERTRALINE HCL 25 MG TABLET PO (08:46)
[2021-02-09] MEDS: PANTOPRAZOLE SOD SESQUIHYDRATE 20 MG TAB PO (08:46)
[2021-02-09] MEDS: FUROSEMIDE 20 MG TABLET PO (08:46)
[2021-02-09] MEDS: metFORMIN HCL 500 MG TABLET 1000 MG PO ×2 (08:46→17:20)
[2021-02-09] MEDS: METOPROLOL TARTRATE 12.5 MG TABLET PO ×2 (08:46→20:37)
[2021-02-09] MEDS: ATORVASTATIN 20 MG TABLET PO (08:46)
[2021-02-09] MEDS: MAGNESIUM OXIDE 400 MG TABLET PO ×2 (08:46→17:20)
[2021-02-09] MEDS: AMIODARONE HCL 200 MG TABLET PO (08:46)
[2021-02-09] MEDS: GABAPENTIN 100 MG CAPSULE PO ×3 (08:46→17:20)
[2021-02-09] MEDS: FLUTICASONE/UMECLIDIN/VILANTER 100-62.5-25 MCG ELLIPTA 1 PUFF INHALATION (08:47)
[2021-02-09] MEDS: polyethylene glycoL 3350 17 GM POWD.PACK PO (08:48)
--- NOTE | 2021-02-09 08:48 | WPDNEURORHBP ---
Subjective Date/time seen: 02/09/21 08:48 Interval history: The etiologic diagnosis is traumatic subdural hematoma, sub arachnoid hemorrhage, status post right craniotomy and evacuation 01/26/2021 I saw this patient [id number] on 02/07/2021 The patient is a 65-year-old female past medical history of congestive heart failure, atrial fib on Eliquis,( which is on hold due to craniotomy) , hypertension, hyperlipidemia, type 2 diabetes, hypothyroidism, GERD, breast cancer, anxiety, depression, and COPD who presented to [facility] on 01/26/2021 following a fall with positive loss of consciousness. Patient was NOT intoxicated (per the chart at OSH it stated that patient was intoxicated, but patient and daughter states that she does not drink. Her was drunk and came into the ER the same night.) with her ,. Shehad a non syncopal fall off of 1 step. Patient denies that she was drinking and states that she does not drink. Patient was M [place] take to the event. Patient was sleepy but arousable with stable vitals in route to the emergency department. CT imaging demonstrated acute right subdural hematoma with midline shift, subarachnoid hemorrhage. Patient became under unresponsive and was intubated. Repeat CT revealed right subdural hematoma with increased midline shift. Patient was given PCC, mannitol, and Keppra and emergently taken to the operating room. Neuro surgery performed a right craniotomy and evacuation on 01/26/[address] Robison. The bone flap was replaced after evacuation. Subdural drain was placed and removed on 01.28.21. Patient was successfully extubated. Hospitalization was significant for hyperglycemia will which had poor response endocrinology was consulted and pay place the patient on Lantus metformin and Trulicity. Karly completed her course of Keppra on 02/06/2021. Her Eliquis is being held secondary to craniotomy. Patient did require reduced dose of metoprolol. Patient remained in normal sinus rhythm throughout her stay. Modified barium swallow test was performed and patient was placed on a carbohydrate diet regular with thin liquids. She is to follow up with Dr. Robison in [address] Song [phone]. She will be discharged on subcu heparin for DVT prophylaxis to the rehab unit. 02/08/21 Trulicity was brought in from home.A list of home medications were given to examiner 02/09/21 Karly had developed urinary retention after removal of Duran. Patient had no prior history of urinary retention. Will DC tamsulosin and begin bladder training. Patient voices no complaints patient is pleased with her overall progress. Patient does become fatigued during therapy sessions. Review of Systems Review of Systems: All systems reviewed & are unremarkable except as noted in HPI and below Functional Status Ambulation Ability Ability to Ambulate 10 Feet: Contact Guard Ambulation Assistive Devices: Walker, Wheeled Exam Narrative: Exam Narrative: patient is seen at breakfast. Patient wishes to not eat breath is in bed but eat in a chair. Head is shaven sutures are intact. No drainage noted external ocular muscles are intact heart rate and rhythm is regular lungs are clear abdomen is obese. Endurance is improving Objective Data Vital Signs Vital Signs: Vital Signs - 24 hr 02/08/21 08:54 02/08/21 13:45 02/08/21 20:55 Temperature 35.8 C L Pulse Rate 69 77 78 Respiratory Rate 20 Blood Pressure 106/55 L Pulse Oximetry 99 02/08/21 22:00 02/09/21 06:00 02/09/21 08:46 Temperature 35.9 C L 35.7 C L Pulse Rate 79 70 62 Respiratory Rate 18 18 Blood Pressure 132/64 123/60 Pulse Oximetry 96 96 Intake/Output Intake/Output: Intake & Output 02/06/21 02/07/21 02/08/21 02/09/21 23:59 23:59 23:59 23:59 Intake Total 750 240 Balance 750 240 Meds/Results Medications: Active Medications Generic Name Dose Route Start Last Admin Trade Name Freq PRN Reason Stop Dose Admin
[2021-02-09 11:35] LABS: Glucose Point of Care 203 mg/dl (65-105)
[2021-02-09 11:35] LABS: Glucose Point of Care 138 mg/dl (65-105)
[2021-02-09] MEDS: INSULIN ASPART (*BKC) 100 UNITS/ML SUB-Q (12:16)
[2021-02-09 14:00] VITALS: BP 125/59; PULSE 65; RESP 20; TEMP 35.6; O2SAT 100
[2021-02-09 17:29] LABS: Glucose Point of Care 131 mg/dl (65-105)
[2021-02-09 20:37] VITALS: PULSE 66
[2021-02-09 21:16] LABS: Glucose Point of Care 172 mg/dl (65-105)
[2021-02-09] MEDS: INSULIN GLARGINE (*BKC) 100 UNITS/ML 20 UNITS SUB-Q (21:31)
[2021-02-09 21:48] VITALS: BP 104/53; PULSE 76; RESP 16; TEMP 36; O2SAT 97
[2021-02-10] VITALS (7 sets, daily range): BP systolic 111–131; BP diastolic 52–65; PULSE 66–89; RESP 14–16; TEMP 36.1–36.4; O2SAT 96–98
[2021-02-10] MEDS: LEVOTHYROXINE SODIUM 112 MCG TABLET PO (06:42)
[2021-02-10] MEDS: HEPARIN SODIUM 5,000 UNITS/ML VIAL 5000 UNITS SUB-Q ×3 (06:42→20:27)
[2021-02-10 06:49] LABS: Glucose Point of Care 129 mg/dl (65-105)
--- NOTE | 2021-02-10 07:01 | WPDNEURORHBP ---
Subjective Date/time seen: 02/10/21 07:01 Interval history: The etiologic diagnosis is traumatic subdural hematoma, sub arachnoid hemorrhage, status post right craniotomy and evacuation 01/26/2021 I saw this patient [id number] on 02/07/2021 The patient is a 65-year-old female past medical history of congestive heart failure, atrial fib on Eliquis,( which is on hold due to craniotomy) , hypertension, hyperlipidemia, type 2 diabetes, hypothyroidism, GERD, breast cancer, anxiety, depression, and COPD who presented to [facility] on 01/26/2021 following a fall with positive loss of consciousness. Patient was NOT intoxicated (per the chart at OSH it stated that patient was intoxicated, but patient and daughter states that she does not drink. Her was drunk and came into the ER the same night.) with her ,. Shehad a non syncopal fall off of 1 step. Patient denies that she was drinking and states that she does not drink. Patient was M Person take to the event. Patient was sleepy but arousable with stable vitals in route to the emergency department. CT imaging demonstrated acute right subdural hematoma with midline shift, subarachnoid hemorrhage. Patient became under unresponsive and was intubated. Repeat CT revealed right subdural hematoma with increased midline shift. Patient was given PCC, mannitol, and Keppra and emergently taken to the operating room. Neuro surgery performed a right craniotomy and evacuation on 01/26/[address] Robison. The bone flap was replaced after evacuation. Subdural drain was placed and removed on 01.28.21. Patient was successfully extubated. Hospitalization was significant for hyperglycemia will which had poor response endocrinology was consulted and pay place the patient on Lantus metformin and Trulicity. Karly completed her course of Keppra on 02/06/2021. Her Eliquis is being held secondary to craniotomy. Patient did require reduced dose of metoprolol. Patient remained in normal sinus rhythm throughout her stay. Modified barium swallow test was performed and patient was placed on a carbohydrate diet regular with thin liquids. She is to follow up with Dr. Robison in [address] Song [phone]. She will be discharged on subcu heparin for DVT prophylaxis to the rehab unit. 02/08/21 Trulicity was brought in from home.A list of home medications were given to examiner 02/09/21 Karly had developed urinary retention after removal of Duran. Patient had no prior history of urinary retention. Will DC tamsulosin and begin bladder training. Patient voices no complaints patient is pleased with her overall progress. Patient does become fatigued during therapy sessions. 02/10/21 Patient voiding on her own with PVRs of 30s. No other complaints. Patient admits to BM Review of Systems Review of Systems: All systems reviewed & are unremarkable except as noted in HPI and below Functional Status Ambulation Ability Ability to Ambulate 10 Feet: Contact Guard Ability to Ambulate 50 Feet With 2 Turns: Contact Guard Ability to Ambulate 150 Feet: Contact Guard Ambulation Assistive Devices: Walker, Wheeled Transfers Ability Ability to Transfer In/Out of Chair: Contact Guard Exam Narrative: Exam Narrative: Head is shaven sutures are intact. No drainage noted external ocular muscles are intact heart rate and rhythm is regular lungs are clear abdomen is obese. Endurance is improving Objective Data Vital Signs Vital Signs: Vital Signs - 24 hr 02/09/21 08:46 02/09/21 14:00 02/09/21 20:37 Temperature 35.6 C L Pulse Rate 62 65 66 Respiratory Rate 20 Blood Pressure 125/59 L Pulse Oximetry 100 02/09/21 21:48 02/10/21 05:53 Temperature 36.0 C L 36.1 C L Pulse Rate 76 66 Respiratory Rate 16 16 Blood Pressure 104/53 L 131/52 L Pulse Oximetry 97 96 Intake/Output Intake/Output: Intake & Output 02/07/21 02/08/21 02/09/21 02/10/21 23:59 23:59 23:59 23:59 Intake Total 750 720 Output
[2021-02-10] MEDS: FLUTICASONE PROP 44 MCG (*SP) 10.6 GM 2 PUFF INHALATION ×2 (08:46→20:27)
[2021-02-10] MEDS: ALBUTEROL SULFATE (*SP) INHALER 2 PUFF INHALATION ×4 (08:46→20:27)
[2021-02-10] MEDS: FLUTICASONE/UMECLIDIN/VILANTER 100-62.5-25 MCG ELLIPTA 1 PUFF INHALATION (08:47)
[2021-02-10] MEDS: metFORMIN HCL 500 MG TABLET 1000 MG PO ×2 (08:49→17:10)
[2021-02-10] MEDS: AMIODARONE HCL 200 MG TABLET PO (08:49)
[2021-02-10] MEDS: METOPROLOL TARTRATE 12.5 MG TABLET PO ×2 (08:50→20:26)
[2021-02-10] MEDS: DOCUSATE SODIUM 100 MG CAPSULE PO ×2 (08:50→20:26)
[2021-02-10] MEDS: PANTOPRAZOLE SOD SESQUIHYDRATE 20 MG TAB PO (08:50)
[2021-02-10] MEDS: GABAPENTIN 100 MG CAPSULE PO ×3 (08:50→17:10)
[2021-02-10] MEDS: ATORVASTATIN 20 MG TABLET PO (08:50)
[2021-02-10] MEDS: LOSARTAN POTASSIUM 25 MG TABLET PO (08:50)
[2021-02-10] MEDS: FUROSEMIDE 20 MG TABLET PO (08:50)
[2021-02-10] MEDS: MAGNESIUM OXIDE 400 MG TABLET PO ×2 (08:50→17:10)
[2021-02-10] MEDS: SERTRALINE HCL 25 MG TABLET PO (08:51)
[2021-02-10] MEDS: polyethylene glycoL 3350 17 GM POWD.PACK PO (08:51)
[2021-02-10 12:20] LABS: Glucose Point of Care 164 mg/dl (65-105)
[2021-02-10 16:52] LABS: Glucose Point of Care 202 mg/dl (65-105)
[2021-02-10] MEDS: INSULIN ASPART (*BKC) 100 UNITS/ML SUB-Q (17:06)
[2021-02-10 21:27] LABS: Glucose Point of Care 157 mg/dl (65-105)
[2021-02-10] MEDS: INSULIN GLARGINE (*BKC) 100 UNITS/ML 20 UNITS SUB-Q (21:36)
[2021-02-11] VITALS (7 sets, daily range): BP systolic 112–117; BP diastolic 41–52; PULSE 64–82; RESP 16–20; TEMP 36.2–36.4; O2SAT 95–100
[2021-02-11] MEDS: HEPARIN SODIUM 5,000 UNITS/ML VIAL 5000 UNITS SUB-Q ×3 (05:57→21:54)
[2021-02-11] MEDS: LEVOTHYROXINE SODIUM 112 MCG TABLET PO (05:57)
[2021-02-11 06:20] LABS: Glucose Point of Care 144 mg/dl (65-105)
[2021-02-11] MEDS: GABAPENTIN 100 MG CAPSULE PO ×3 (08:33→17:05)
[2021-02-11] MEDS: ATORVASTATIN 20 MG TABLET PO (08:33)
[2021-02-11] MEDS: LOSARTAN POTASSIUM 25 MG TABLET PO (08:33)
[2021-02-11] MEDS: FUROSEMIDE 20 MG TABLET PO (08:33)
[2021-02-11] MEDS: metFORMIN HCL 500 MG TABLET 1000 MG PO ×2 (08:33→17:05)
[2021-02-11] MEDS: MAGNESIUM OXIDE 400 MG TABLET PO ×2 (08:33→17:05)
[2021-02-11] MEDS: SERTRALINE HCL 25 MG TABLET PO (08:33)
[2021-02-11] MEDS: DOCUSATE SODIUM 100 MG CAPSULE PO ×2 (08:33→20:22)
[2021-02-11] MEDS: METOPROLOL TARTRATE 12.5 MG TABLET PO ×2 (08:33→20:23)
[2021-02-11] MEDS: FLUTICASONE/UMECLIDIN/VILANTER 100-62.5-25 MCG ELLIPTA 1 PUFF INHALATION (08:34)
[2021-02-11] MEDS: AMIODARONE HCL 200 MG TABLET PO (08:34)
[2021-02-11] MEDS: ALBUTEROL SULFATE (*SP) INHALER 2 PUFF INHALATION ×4 (08:34→20:00)
[2021-02-11] MEDS: FLUTICASONE PROP 44 MCG (*SP) 10.6 GM 2 PUFF INHALATION ×2 (08:34→20:01)
[2021-02-11] MEDS: PANTOPRAZOLE SOD SESQUIHYDRATE 20 MG TAB PO (08:34)
[2021-02-11] MEDS: polyethylene glycoL 3350 17 GM POWD.PACK PO (08:36)
--- NOTE | 2021-02-11 10:01 | WPDNEURORHBP ---
Subjective Date/time seen: 02/11/21 10:01 Interval history: The etiologic diagnosis is traumatic subdural hematoma, sub arachnoid hemorrhage, status post right craniotomy and evacuation 01/26/2021 The patient is a 65-year-old female past medical history of congestive heart failure, atrial fib on Eliquis,( which is on hold due to craniotomy) , hypertension, hyperlipidemia, type 2 diabetes, hypothyroidism, GERD, breast cancer, anxiety, depression, and COPD who presented to [facility] on 01/26/2021 following a fall with positive loss of consciousness. Patient was NOT intoxicated (per the chart at OSH it stated that patient was intoxicated, but patient and daughter states that she does not drink. Her was drunk and came into the ER the same night.) with her ,. She had a non syncopal fall off of 1 step. Patient denies that she was drinking and states that she does not drink. Patient was sleepy but arousable with stable vitals in route to the emergency department. CT imaging demonstrated acute right subdural hematoma with midline shift, subarachnoid hemorrhage. Patient became unresponsive and was intubated. Repeat CT revealed right subdural hematoma with increased midline shift. Patient was given PCC, mannitol, and Keppra and emergently taken to the operating room. Neuro surgery performed a right craniotomy and evacuation on 01/26/[address] Robison. The bone flap was replaced after evacuation. Subdural drain was placed and removed on 01.28.21. Patient was successfully extubated. Hospitalization was significant for hyperglycemia with endocrinology consulted. The patient was placed on Lantus metformin and Trulicity. Karly completed her course of Keppra on 02/06/2021. Her Eliquis is being held secondary to craniotomy. Patient did require reduced dose of metoprolol. Patient remained in normal sinus rhythm throughout her stay. Modified barium swallow test was performed and patient was placed on a carbohydrate diet regular with thin liquids. She is to follow up with Dr. Robison in [address] Song [phone]. She will be discharged on subcu heparin for DVT prophylaxis to the rehab unit. 02/08/21 Trent was brought in from home.A list of home medications were given to examiner 02/09/21 Karly had developed urinary retention after removal of Duran. Patient had no prior history of urinary retention. Will DC tamsulosin and begin bladder training. Patient voices no complaints patient is pleased with her overall progress. Patient does become fatigued during therapy sessions. 02/10/21 Patient voiding on her own with PVRs of 30s. No other complaints. Patient admits to Patient is voiding on her own with low PVRs. Will discontinue Flomax. BS slightly elevated. Will increase Lantus to 22 units q hs.Patient requesting a temporary handicapped parking placard. Review of Systems Review of Systems: All systems reviewed & are unremarkable except as noted in HPI and below Functional Status Ambulation Ability Ability to Ambulate 10 Feet: Contact Guard Ability to Ambulate 50 Feet With 2 Turns: Contact Guard Ability to Ambulate 150 Feet: Contact Guard Ambulation Assistive Devices: Walker, Wheeled Transfers Ability Ability to Transfer In/Out of Chair: Standby Assistance Exam Narrative: Exam Narrative: Head is shaven sutures are intact. No drainage noted external ocular muscles are intact. Heart rate and rhythm is regular. Lungs are clear. Abdomen is obese. Endurance is improving. Balance better. Objective Data Vital Signs Vital Signs: Vital Signs - 24 hr 02/10/21 14:00 02/10/21 20:26 02/10/21 21:36 Temperature 36.2 C L 36.4 C Pulse Rate 89 72 74 Respiratory Rate 14 16 Blood Pressure 115/65 111/55 L Pulse Oximetry 98 98 02/11/21 06:00 02/11/21 08:28 02/11/21 08:33 Temperature 36.4 C L Pulse Rate 71 77 74 Respiratory Rate 16 Blood Pressure 112/41 L Pulse Oximetry 99 95 02/11/21 08:34 Temperatu
[2021-02-11 11:49] LABS: Glucose Point of Care 156 mg/dl (65-105)
[2021-02-11 17:52] LABS: Glucose Point of Care 134 mg/dl (65-105)
[2021-02-11 20:17] LABS: Glucose Point of Care 154 mg/dl (65-105)
[2021-02-11] MEDS: INSULIN GLARGINE (*BKC) 100 UNITS/ML 22 UNITS SUB-Q (20:22)
[2021-02-12 06:00] VITALS: BP 128/57; PULSE 68; RESP 20; TEMP 35.8; O2SAT 98
[2021-02-12] MEDS: HEPARIN SODIUM 5,000 UNITS/ML VIAL 5000 UNITS SUB-Q ×3 (06:00→21:26)
[2021-02-12] MEDS: ACETAMINOPHEN 500 MG TABLET 1000 MG PO (06:09)
[2021-02-12 06:29] LABS: Glucose Point of Care 143 mg/dl (65-105)
[2021-02-12] MEDS: LEVOTHYROXINE SODIUM 112 MCG TABLET PO (06:32)
[2021-02-12] MEDS: FLUTICASONE/UMECLIDIN/VILANTER 100-62.5-25 MCG ELLIPTA 1 PUFF INHALATION (08:17)
[2021-02-12] MEDS: FLUTICASONE PROP 44 MCG (*SP) 10.6 GM 2 PUFF INHALATION ×2 (08:17→20:19)
[2021-02-12] MEDS: ALBUTEROL SULFATE (*SP) INHALER 2 PUFF INHALATION ×4 (08:17→20:18)
[2021-02-12 08:18] VITALS: PULSE 72; PULSE 74
[2021-02-12] MEDS: AMIODARONE HCL 200 MG TABLET PO (08:18)
[2021-02-12] MEDS: PANTOPRAZOLE SOD SESQUIHYDRATE 20 MG TAB PO (08:18)
[2021-02-12] MEDS: LOSARTAN POTASSIUM 25 MG TABLET PO (08:18)
[2021-02-12] MEDS: METOPROLOL TARTRATE 12.5 MG TABLET PO ×2 (08:18→21:27)
[2021-02-12] MEDS: SERTRALINE HCL 25 MG TABLET PO (08:18)
[2021-02-12] MEDS: DOCUSATE SODIUM 100 MG CAPSULE PO ×2 (08:18→21:27)
[2021-02-12] MEDS: metFORMIN HCL 500 MG TABLET 1000 MG PO ×2 (08:18→17:48)
[2021-02-12] MEDS: GABAPENTIN 100 MG CAPSULE PO ×3 (08:18→17:46)
[2021-02-12] MEDS: FUROSEMIDE 20 MG TABLET PO (08:18)
[2021-02-12] MEDS: ATORVASTATIN 20 MG TABLET PO (08:18)
[2021-02-12] MEDS: MAGNESIUM OXIDE 400 MG TABLET PO ×2 (08:18→17:47)
--- NOTE | 2021-02-12 10:24 | WPDNEURORHBP ---
Subjective Date/time seen: 02/12/21 10:24 Interval history: The etiologic diagnosis is traumatic subdural hematoma, sub arachnoid hemorrhage, status post right craniotomy and evacuation 01/26/2021 The patient is a 65-year-old female past medical history of congestive heart failure, atrial fib on Eliquis,( which is on hold due to craniotomy) , hypertension, hyperlipidemia, type 2 diabetes, hypothyroidism, GERD, breast cancer, anxiety, depression, and COPD who presented to [facility] on 01/26/2021 following a fall with positive loss of consciousness. Patient was NOT intoxicated (per the chart at OSH it stated that patient was intoxicated, but patient and daughter states that she does not drink. Her was drunk and came into the ER the same night.) with her ,. She had a non syncopal fall off of 1 step. Patient denies that she was drinking and states that she does not drink. Patient was sleepy but arousable with stable vitals in route to the emergency department. CT imaging demonstrated acute right subdural hematoma with midline shift, subarachnoid hemorrhage. Patient became unresponsive and was intubated. Repeat CT revealed right subdural hematoma with increased midline shift. Patient was given PCC, mannitol, and Keppra and emergently taken to the operating room. Neuro surgery performed a right craniotomy and evacuation on 01/26/[address] Robison. The bone flap was replaced after evacuation. Subdural drain was placed and removed on 01.28.21. Patient was successfully extubated. Hospitalization was significant for hyperglycemia with endocrinology consulted. The patient was placed on Lantus metformin and Trulicity. Karly completed her course of Keppra on 02/06/2021. Her Eliquis is being held secondary to craniotomy. Patient did require reduced dose of metoprolol. Patient remained in normal sinus rhythm throughout her stay. Modified barium swallow test was performed and patient was placed on a carbohydrate diet regular with thin liquids. She is to follow up with Dr. Robison in [address] Song [phone]. She will be discharged on subcu heparin for DVT prophylaxis to the rehab unit. 02/08/21 Trent was brought in from home.A list of home medications were given to examiner 02/09/21 Karly had developed urinary retention after removal of Duran. Patient had no prior history of urinary retention. Will DC tamsulosin and begin bladder training. Patient voices no complaints patient is pleased with her overall progress. Patient does become fatigued during therapy sessions. 02/10/21 Patient voiding on her own with PVRs of 30s. No other complaints. Patient admits to Patient is voiding on her own with low PVRs. Will discontinue Flomax. BS slightly elevated. Will increase Lantus to 22 units q hs.Patient requesting a temporary handicapped parking placard. 02/12/21 patient complaining of low back pain. Patient thinks she might have a urinary tract infection. Review of Systems Review of Systems: All systems reviewed & are unremarkable except as noted in HPI and below Functional Status Ambulation Ability Ability to Ambulate 10 Feet: Standby Assistance Ability to Ambulate 50 Feet With 2 Turns: Standby Assistance Ability to Ambulate 150 Feet: Contact Guard Ambulation Assistive Devices: Walker, Wheeled Transfers Ability Ability to Transfer In/Out of Chair: Standby Assistance Exam Narrative: Exam Narrative: Head is shaven sutures are intact. No drainage noted external ocular muscles are intact. Heart rate and rhythm is regular. Lungs are clear. Abdomen is obese. Endurance is improving. Balance better. No tenderness is noted at the costovertebral areas in the back. . Pain cannot be elicited during exam. Objective Data Vital Signs Vital Signs: Vital Signs - 24 hr 02/11/21 14:00 02/11/21 20:23 02/11/21 22:00 Temperature 36.3 C L 36.2 C L Pulse Rate 82 64 75 Respiratory Rate 18 20 Blood Pressure 117/52 L 117/51
[2021-02-12 10:32] LABS: Basophils Absolute Auto 0.1 K/mm3 (0.0-0.1); Basophils Percent Auto 0.8 % (0.2-1.2); Eosinophils Absolute Auto 0.1 K/mm3 (0-0.3); Eosinophils Percent Auto 1.6 % (0-4.4); Hematocrit 31.9 % (37.0-47.0); Hemoglobin 9.7 g/dL (12.0-15.0); Immature Granulocyte Absolute 0.09 K/mm3 (0.00-0.031); Immature Granulocyte Percent A 1.1 % (0-0.5); Lymphocytes Absolute Auto 1.27 K/mm3 (0.9-3.2); Lymphocytes Percent Auto 16.1 % (18.3-44.2); Mean Corpuscular HGB Conc 30.4 g/dl (32-36); Mean Corpuscular Hemoglobin 29.8 pg (26-34); Mean Corpuscular Volume 98.2 fl (80-100); Mean Platelet Volume 11.1 fl (7.4-10.4); Monocytes Absolute Auto 0.8 K/mm3 (0.1-0.6); Monocytes Percent Auto 9.6 % (2.6-8.5); Neutrophils Absolute Auto 5.6 K/mm3 (1.3-6.7); Neutrophils Percent Auto 70.8 % (45.5-73.1); Platelet Count Result 315 k/mm3 (150-375); Red Blood Count 3.25 M/mm3 (4.2-5.4); Red Cell Distribution Width 13.4 % (11.5-14.5); White Blood Count 7.9 K/mm3 (4.5-10.0)
[2021-02-12 10:41] LABS: Alanine Aminotransferase 34 U/L (4-35); Albumin Level 3.7 g/dL (3.5-5.1); Alkaline Phosphatase 100 U/L (38-126); Anion Gap 12 mmol/L (8-16); Aspartate Amino Transferase 28 U/L (14-36); Bilirubin,Total 0.8 mg/dL (0.2-1.3); Blood Urea Nitrogen 17 mg/dL (7-17); Calcium 9.3 mg/dL (8.4-10.2); Carbon Dioxide 25 mmol/L (22-30); Chloride 103 mmol/L (98-107); Estimated CRCL calculation 80 ml/min; Estimated Glomerular Filt Rate > 60; Glucose 167 mg/dL (65-105); Potassium 4.1 mmol/L (3.4-5.0); Sodium 140 mmol/L (137-145)
[2021-02-12 11:30] LABS: Add Urine Microscopic? YES; Appearance Urine Cloudy (Clear); Bacteria Urine Trace /hpf; Bilirubin Urine Negative (Negative); Color Urine Yellow (Yellow); Glucose Urine UA Negative (Negative); Ketones Urine Negative (Negative); Leukocyte Esterase Ur 1+ LEU/UL (Negative); Mucus Urine Rare /lpf; Nitrate Urine Negative (Negative); Protein Urine Negative (Negative); Specific Grav Ur 1.026 (1.001-1.035); Squamous Epithelial Cell Urine Many /hpf (Few); Urobilinogen Urine Negative mg/dL (<2.0); WBC Urine 16-20 /hpf
[2021-02-12 11:37] LABS: Blood Urine Negative (Negative)
[2021-02-12 11:59] LABS: Glucose Point of Care 146 mg/dl (65-105)
--- NOTE | 2021-02-12 12:22 | PC.NURSE ---
Patient has c/o lower back pain, but no c/o of burning during urination. Patient has previously been on Flomax. Bladder scanned per Dr. ulrich with only 87mls in; patient voided approximately 50mls and UA obtained.
[2021-02-12 14:00] VITALS: BP 120/60; PULSE 75; RESP 16; TEMP 35.7; O2SAT 98
[2021-02-12 16:58] LABS: Glucose Point of Care 148 mg/dl (65-105)
[2021-02-12] MEDS: AMPICILLIN TRIHYDRATE 500 MG CAPSULE PO ×2 (17:50→21:27)
[2021-02-12 20:09] LABS: Glucose Point of Care 123 mg/dl (65-105)
[2021-02-12] MEDS: INSULIN GLARGINE (*BKC) 100 UNITS/ML 22 UNITS SUB-Q (20:22)
[2021-02-12 21:27] VITALS: PULSE 75
[2021-02-12 21:49] VITALS: BP 127/62; PULSE 69; RESP 18; TEMP 36.1; O2SAT 97
[2021-02-13] MEDS: AMPICILLIN TRIHYDRATE 500 MG CAPSULE PO ×4 (05:56→20:57)
[2021-02-13] MEDS: LEVOTHYROXINE SODIUM 112 MCG TABLET PO (05:56)
[2021-02-13] MEDS: HEPARIN SODIUM 5,000 UNITS/ML VIAL 5000 UNITS SUB-Q ×3 (05:57→20:58)
[2021-02-13 05:59] VITALS: BP 112/58; PULSE 71; RESP 16; TEMP 36.3; O2SAT 99
[2021-02-13] MEDS: ALBUTEROL SULFATE (*SP) INHALER 2 PUFF INHALATION ×4 (08:33→20:58)
[2021-02-13] MEDS: FLUTICASONE PROP 44 MCG (*SP) 10.6 GM 2 PUFF INHALATION ×2 (08:37→20:58)
[2021-02-13] MEDS: FLUTICASONE/UMECLIDIN/VILANTER 100-62.5-25 MCG ELLIPTA 1 PUFF INHALATION (08:38)
[2021-02-13 08:39] VITALS: PULSE 71
[2021-02-13] MEDS: AMIODARONE HCL 200 MG TABLET PO (08:39)
[2021-02-13] MEDS: metFORMIN HCL 500 MG TABLET 1000 MG PO ×2 (08:39→17:57)
[2021-02-13] MEDS: ATORVASTATIN 20 MG TABLET PO (08:39)
[2021-02-13 08:40] VITALS: PULSE 71
[2021-02-13] MEDS: FUROSEMIDE 20 MG TABLET PO (08:40)
[2021-02-13] MEDS: GABAPENTIN 100 MG CAPSULE PO ×3 (08:40→17:56)
[2021-02-13] MEDS: MAGNESIUM OXIDE 400 MG TABLET PO ×2 (08:40→17:56)
[2021-02-13] MEDS: DOCUSATE SODIUM 100 MG CAPSULE PO ×2 (08:40→20:57)
[2021-02-13] MEDS: LOSARTAN POTASSIUM 25 MG TABLET PO (08:40)
[2021-02-13] MEDS: METOPROLOL TARTRATE 12.5 MG TABLET PO ×2 (08:40→20:57)
[2021-02-13] MEDS: SERTRALINE HCL 25 MG TABLET PO (08:41)
[2021-02-13] MEDS: PANTOPRAZOLE SOD SESQUIHYDRATE 20 MG TAB PO (08:41)
[2021-02-13] MEDS: polyethylene glycoL 3350 17 GM POWD.PACK PO (08:41)
[2021-02-13 12:03] LABS: Glucose Point of Care 146 mg/dl (65-105)
[2021-02-13 12:03] LABS: Glucose Point of Care 140 mg/dl (65-105)
--- NOTE | 2021-02-13 13:43 | WPDNEURORHBP ---
Subjective Date/time seen: 02/13/21 13:43 Interval history: The etiologic diagnosis is traumatic subdural hematoma, sub arachnoid hemorrhage, status post right craniotomy and evacuation 01/26/2021 The patient is a 65-year-old female past medical history of congestive heart failure, atrial fib on Eliquis,( which is on hold due to craniotomy) , hypertension, hyperlipidemia, type 2 diabetes, hypothyroidism, GERD, breast cancer, anxiety, depression, and COPD who presented to [facility] on 01/26/2021 following a fall with positive loss of consciousness. Patient was NOT intoxicated (per the chart at OSH it stated that patient was intoxicated, but patient and daughter states that she does not drink. Her was drunk and came into the ER the same night.) with her ,. She had a non syncopal fall off of 1 step. Patient denies that she was drinking and states that she does not drink. Patient was sleepy but arousable with stable vitals in route to the emergency department. CT imaging demonstrated acute right subdural hematoma with midline shift, subarachnoid hemorrhage. Patient became unresponsive and was intubated. Repeat CT revealed right subdural hematoma with increased midline shift. Patient was given PCC, mannitol, and Keppra and emergently taken to the operating room. Neuro surgery performed a right craniotomy and evacuation on 01/26/[address] Robison. The bone flap was replaced after evacuation. Subdural drain was placed and removed on 01.28.21. Patient was successfully extubated. Hospitalization was significant for hyperglycemia with endocrinology consulted. The patient was placed on Lantus metformin and Trulicity. Karly completed her course of Keppra on 02/06/2021. Her Eliquis is being held secondary to craniotomy. Patient did require reduced dose of metoprolol. Patient remained in normal sinus rhythm throughout her stay. Modified barium swallow test was performed and patient was placed on a carbohydrate diet regular with thin liquids. She is to follow up with Dr. Robison in [address] Song [phone]. She will be discharged on subcu heparin for DVT prophylaxis to the rehab unit. 02/08/21 Trcharo was brought in from home.A list of home medications were given to examiner 02/09/21 Karly had developed urinary retention after removal of Duran. Patient had no prior history of urinary retention. Will DC tamsulosin and begin bladder training. Patient voices no complaints patient is pleased with her overall progress. Patient does become fatigued during therapy sessions. 02/10/21 Patient voiding on her own with PVRs of 30s. No other complaints. Patient admits to Patient is voiding on her own with low PVRs. Will discontinue Flomax. BS slightly elevated. Will increase Lantus to 22 units q hs.Patient requesting a temporary handicapped parking placard. 02/12/21 patient complaining of low back pain. Patient thinks she might have a urinary tract infection. Review of Systems Review of Systems: All systems reviewed & are unremarkable except as noted in HPI and below Functional Status Ambulation Ability Ability to Ambulate 10 Feet: Independent Ability to Ambulate 50 Feet With 2 Turns: Independent Ability to Ambulate 150 Feet: Standby Assistance Ambulation Assistive Devices: Walker, Wheeled Transfers Ability Ability to Transfer In/Out of Chair: Independent Exam Narrative: Exam Narrative: Head is shaven sutures are intact. No drainage noted. EOMI. Heart rate and rhythm is regular. Lungs are clear. Abdomen is obese. Endurance is improving. Balance better. Objective Data Vital Signs Vital Signs: Vital Signs - 24 hr 02/12/21 14:00 02/12/21 21:27 02/12/21 21:49 Temperature 35.7 C L 36.1 C L Pulse Rate 75 75 69 Respiratory Rate 16 18 Blood Pressure 120/60 127/62 Pulse Oximetry 98 97 02/13/21 05:59 02/13/21 08:39 02/13/21 08:40 Temperature 36.3 C L Pulse Rate 71 71 71 Respiratory Rate 16 Blood Pr
[2021-02-13 14:00] VITALS: BP 105/54; PULSE 83; RESP 18; TEMP 36; O2SAT 98
[2021-02-13 17:27] LABS: Glucose Point of Care 136 mg/dl (65-105)
[2021-02-13 20:57] VITALS: PULSE 88
[2021-02-13] MEDS: INSULIN GLARGINE (*BKC) 100 UNITS/ML 22 UNITS SUB-Q (21:22)
[2021-02-13 21:51] VITALS: BP 111/55; PULSE 71; RESP 16; TEMP 36.3; O2SAT 94
[2021-02-14 02:54] LABS: Glucose Point of Care 163 mg/dl (65-105)
[2021-02-14 05:41] VITALS: BP 120/52; PULSE 70; RESP 16; TEMP 36.3; O2SAT 95
[2021-02-14] MEDS: AMPICILLIN TRIHYDRATE 500 MG CAPSULE PO ×4 (06:35→21:01)
[2021-02-14] MEDS: HEPARIN SODIUM 5,000 UNITS/ML VIAL 5000 UNITS SUB-Q ×3 (06:35→21:35)
[2021-02-14] MEDS: LEVOTHYROXINE SODIUM 112 MCG TABLET PO (06:35)
[2021-02-14 06:42] LABS: Glucose Point of Care 124 mg/dl (65-105)
[2021-02-14] MEDS: FLUTICASONE PROP 44 MCG (*SP) 10.6 GM 2 PUFF INHALATION ×2 (08:11→20:04)
[2021-02-14] MEDS: GABAPENTIN 100 MG CAPSULE PO ×3 (08:11→17:05)
[2021-02-14] MEDS: FLUTICASONE/UMECLIDIN/VILANTER 100-62.5-25 MCG ELLIPTA 1 PUFF INHALATION (08:11)
[2021-02-14 08:12] VITALS: PULSE 74
[2021-02-14] MEDS: METOPROLOL TARTRATE 12.5 MG TABLET PO ×2 (08:12→21:01)
[2021-02-14] MEDS: SERTRALINE HCL 25 MG TABLET PO (08:12)
[2021-02-14] MEDS: AMIODARONE HCL 200 MG TABLET PO (08:12)
[2021-02-14] MEDS: FUROSEMIDE 20 MG TABLET PO (08:12)
[2021-02-14] MEDS: DOCUSATE SODIUM 100 MG CAPSULE PO ×2 (08:12→21:01)
[2021-02-14] MEDS: MAGNESIUM OXIDE 400 MG TABLET PO ×2 (08:12→17:06)
[2021-02-14] MEDS: LOSARTAN POTASSIUM 25 MG TABLET PO (08:12)
[2021-02-14] MEDS: PANTOPRAZOLE SOD SESQUIHYDRATE 20 MG TAB PO (08:12)
[2021-02-14] MEDS: metFORMIN HCL 500 MG TABLET 1000 MG PO ×2 (08:12→17:05)
[2021-02-14] MEDS: ATORVASTATIN 20 MG TABLET PO (08:12)
[2021-02-14] MEDS: ALBUTEROL SULFATE (*SP) INHALER 2 PUFF INHALATION ×4 (08:14→20:03)
--- NOTE | 2021-02-14 10:57 | PCNFU ---
Nutrition Follow-Up Complete: Nutrition Diagnosis: Obesity related to poor food choices and as evidenced by a BMI of 36.8 and patient's statements. Nutrition Goal: Have patient meet her nutritional needs. Goal has been met, patient is meeting her nutritional needs. Nutrition recommendation: Continue with Diabetic Consistent Carbohydrate diet. Last recorded weight is 100.4 kg. Recommend obtaining new weight. Bowel Motility: Last documented on 02/13. Labs Reviewed:Last documented on 02/12: Hgb (9.7), Hct (31.9), Glu (167) Meds Noted: Proventil, Lipitor, Pacerone, Lasix, Novolog, Protonix, Mag-Ox, Colace, Heparin Sodium, Lantus, Synthroid, Cozaar, Senna, Zoloft, Miralax, Lopressor, Metformin, Spiriva Additional Notes: Patient is enjoying her meals and has no questions/concerns. Patient was able to receive some fruit on her trays, which she was happy about. Skin is within normal limits, no pressure ulcers documented. Discharge is set for 02/19. Will follow up in 7 days.
--- NOTE | 2021-02-14 11:59 | PCNSR ---
On 02/14/21, the student, Lorenza Benton, provided care and completed [facility] documentation on this patient. I have reviewed the student's documentation and agree with the findings.
[2021-02-14 14:00] VITALS: BP 105/50; PULSE 78; RESP 18; TEMP 36.2; O2SAT 97
--- NOTE | 2021-02-14 15:22 | WPDNEURORHBP ---
Subjective Date/time seen: 02/14/21 15:22 Interval history: The etiologic diagnosis is traumatic subdural hematoma, sub arachnoid hemorrhage, status post right craniotomy and evacuation 01/26/2021 The patient is a 65-year-old female past medical history of congestive heart failure, atrial fib on Eliquis,( which is on hold due to craniotomy) , hypertension, hyperlipidemia, type 2 diabetes, hypothyroidism, GERD, breast cancer, anxiety, depression, and COPD who presented to [facility] on 01/26/2021 following a fall with positive loss of consciousness. Patient was NOT intoxicated (per the chart at OSH it stated that patient was intoxicated, but patient and daughter states that she does not drink. Her was drunk and came into the ER the same night.) with her ,. She had a non syncopal fall off of 1 step. Patient denies that she was drinking and states that she does not drink. Patient was sleepy but arousable with stable vitals in route to the emergency department. CT imaging demonstrated acute right subdural hematoma with midline shift, subarachnoid hemorrhage. Patient became unresponsive and was intubated. Repeat CT revealed right subdural hematoma with increased midline shift. Patient was given PCC, mannitol, and Keppra and emergently taken to the operating room. Neuro surgery performed a right craniotomy and evacuation on 01/26/[address] Robison. The bone flap was replaced after evacuation. Subdural drain was placed and removed on 01.28.21. Patient was successfully extubated. Hospitalization was significant for hyperglycemia with endocrinology consulted. The patient was placed on Lantus metformin and Trulicity. Karly completed her course of Keppra on 02/06/2021. Her Eliquis is being held secondary to craniotomy. Patient did require reduced dose of metoprolol. Patient remained in normal sinus rhythm throughout her stay. Modified barium swallow test was performed and patient was placed on a carbohydrate diet regular with thin liquids. She is to follow up with Dr. Robison in [address] Song [phone]. She will be discharged on subcu heparin for DVT prophylaxis to the rehab unit. 02/08/21 Trcharo was brought in from home.A list of home medications were given to examiner 02/09/21 Karly had developed urinary retention after removal of Duran. Patient had no prior history of urinary retention. Will DC tamsulosin and begin bladder training. Patient voices no complaints patient is pleased with her overall progress. Patient does become fatigued during therapy sessions. 02/10/21 Patient voiding on her own with PVRs of 30s. No other complaints. Patient admits to Patient is voiding on her own with low PVRs. Will discontinue Flomax. BS slightly elevated. Will increase Lantus to 22 units q hs.Patient requesting a temporary handicapped parking placard. 02/12/21 patient complaining of low back pain. Patient thinks she might have a urinary tract infection. 02/14/21Patient pleased with her progress. Patient with back pain off and on. Urine culture pending Review of Systems Review of Systems: All systems reviewed & are unremarkable except as noted in HPI and below Functional Status Ambulation Ability Ability to Ambulate 10 Feet: Independent Ability to Ambulate 50 Feet With 2 Turns: Independent Ability to Ambulate 150 Feet: Independent Ambulation Assistive Devices: Walker, Wheeled Transfers Ability Ability to Transfer In/Out of Chair: Independent Exam Narrative: Exam Narrative: Head is shaven sutures are intact. No drainage noted. EOMI. Heart rate and rhythm is regular. Lungs are clear. Abdomen is obese. Endurance is improving. Balance better. Gait is SBA. Objective Data Vital Signs Vital Signs: Vital Signs - 24 hr 02/13/21 20:57 02/13/21 21:51 02/14/21 05:41 Temperature 36.3 C L 36.3 C L Pulse Rate 88 71 70 Respiratory Rate 16 16 Blood Pressure 111/55 L 120/52 L Pulse Oximetry 94 95 02/14/21 08:
[2021-02-14 16:16] LABS: Glucose Point of Care 140 mg/dl (65-105)
[2021-02-14 17:02] LABS: Glucose Point of Care 143 mg/dl (65-105)
[2021-02-14 20:33] LABS: Glucose Point of Care 183 mg/dl (65-105)
[2021-02-14] MEDS: INSULIN GLARGINE (*BKC) 100 UNITS/ML 22 UNITS SUB-Q (20:35)
[2021-02-14 21:01] VITALS: PULSE 78
[2021-02-14 21:23] VITALS: BP 110/49; PULSE 72; RESP 16; TEMP 35.9; O2SAT 95
[2021-02-15 05:35] LABS: Basophils Percent Auto 0.8 % (0.2-1.2); Eosinophils Absolute Auto 0.1 K/mm3 (0-0.3); Eosinophils Percent Auto 2.1 % (0-4.4); Hematocrit 28.8 % (37.0-47.0); Hemoglobin 8.6 g/dL (12.0-15.0); Immature Granulocyte Absolute 0.06 K/mm3 (0.00-0.031); Immature Granulocyte Percent A 1.1 % (0-0.5); Lymphocytes Absolute Auto 1.23 K/mm3 (0.9-3.2); Lymphocytes Percent Auto 23.2 % (18.3-44.2); Mean Corpuscular HGB Conc 29.9 g/dl (32-36); Mean Corpuscular Hemoglobin 28.9 pg (26-34); Mean Corpuscular Volume 96.6 fl (80-100); Mean Platelet Volume 10.9 fl (7.4-10.4); Monocytes Absolute Auto 0.5 K/mm3 (0.1-0.6); Monocytes Percent Auto 9.8 % (2.6-8.5); Neutrophils Absolute Auto 3.3 K/mm3 (1.3-6.7); Nucleated Red Blood Cells Perc 0.4 % (0.0-0.2); Platelet Count Result 235 k/mm3 (150-375); Red Blood Count 2.98 M/mm3 (4.2-5.4); Red Cell Distribution Width 13.6 % (11.5-14.5); White Blood Count 5.3 K/mm3 (4.5-10.0)
[2021-02-15 05:37] LABS: Alanine Aminotransferase 26 U/L (4-35); Albumin Level 3.4 g/dL (3.5-5.1); Alkaline Phosphatase 92 U/L (38-126); Anion Gap 10 mmol/L (8-16); Aspartate Amino Transferase 28 U/L (14-36); Bilirubin,Total 0.7 mg/dL (0.2-1.3); Blood Urea Nitrogen 13 mg/dL (7-17); Calcium 8.8 mg/dL (8.4-10.2); Carbon Dioxide 26 mmol/L (22-30); Chloride 105 mmol/L (98-107); Estimated CRCL calculation 92 ml/min; Estimated Glomerular Filt Rate > 60; Glucose 120 mg/dL (65-105); Sodium 141 mmol/L (137-145)
[2021-02-15 05:50] VITALS: BP 117/53; PULSE 65; RESP 16; TEMP 36.2; O2SAT 96
[2021-02-15] MEDS: LEVOTHYROXINE SODIUM 112 MCG TABLET PO (05:58)
[2021-02-15] MEDS: HEPARIN SODIUM 5,000 UNITS/ML VIAL 5000 UNITS SUB-Q ×3 (05:58→20:43)
[2021-02-15] MEDS: AMPICILLIN TRIHYDRATE 500 MG CAPSULE PO ×4 (05:58→20:39)
[2021-02-15 07:38] LABS: Glucose Point of Care 130 mg/dl (65-105)
[2021-02-15] MEDS: FLUTICASONE PROP 44 MCG (*SP) 10.6 GM 2 PUFF INHALATION ×2 (08:39→20:42)
[2021-02-15] MEDS: FLUTICASONE/UMECLIDIN/VILANTER 100-62.5-25 MCG ELLIPTA 1 PUFF INHALATION (08:42)
[2021-02-15] MEDS: metFORMIN HCL 500 MG TABLET 1000 MG PO ×2 (08:44→17:04)
[2021-02-15 08:45] VITALS: PULSE 65
[2021-02-15] MEDS: SERTRALINE HCL 25 MG TABLET PO (08:45)
[2021-02-15] MEDS: METOPROLOL TARTRATE 12.5 MG TABLET PO ×2 (08:45→20:39)
[2021-02-15] MEDS: AMIODARONE HCL 200 MG TABLET PO (08:45)
[2021-02-15] MEDS: PANTOPRAZOLE SOD SESQUIHYDRATE 20 MG TAB PO (08:45)
[2021-02-15] MEDS: GABAPENTIN 100 MG CAPSULE PO ×3 (08:45→17:03)
[2021-02-15] MEDS: LOSARTAN POTASSIUM 25 MG TABLET PO (08:45)
[2021-02-15] MEDS: MAGNESIUM OXIDE 400 MG TABLET PO ×2 (08:45→17:03)
[2021-02-15] MEDS: ATORVASTATIN 20 MG TABLET PO (08:45)
[2021-02-15] MEDS: DOCUSATE SODIUM 100 MG CAPSULE PO ×2 (08:46→20:43)
[2021-02-15] MEDS: FUROSEMIDE 20 MG TABLET PO (08:46)
[2021-02-15] MEDS: ALBUTEROL SULFATE (*SP) INHALER 2 PUFF INHALATION ×4 (10:06→20:42)
--- NOTE | 2021-02-15 10:07 | WPDNEURORHBP ---
Subjective Date/time seen: 02/15/21 10:07 Interval history: The etiologic diagnosis is traumatic subdural hematoma, sub arachnoid hemorrhage, status post right craniotomy and evacuation 01/26/2021 The patient is a 65-year-old female past medical history of congestive heart failure, atrial fib on Eliquis,( which is on hold due to craniotomy) , hypertension, hyperlipidemia, type 2 diabetes, hypothyroidism, GERD, breast cancer, anxiety, depression, and COPD who presented to [facility] on 01/26/2021 following a fall with positive loss of consciousness. Patient was NOT intoxicated (per the chart at OSH it stated that patient was intoxicated, but patient and daughter states that she does not drink. Her was drunk and came into the ER the same night.) with her ,. She had a non syncopal fall off of 1 step. Patient denies that she was drinking and states that she does not drink. Patient was sleepy but arousable with stable vitals in route to the emergency department. CT imaging demonstrated acute right subdural hematoma with midline shift, subarachnoid hemorrhage. Patient became unresponsive and was intubated. Repeat CT revealed right subdural hematoma with increased midline shift. Patient was given PCC, mannitol, and Keppra and emergently taken to the operating room. Neuro surgery performed a right craniotomy and evacuation on 01/26/[address] Robison. The bone flap was replaced after evacuation. Subdural drain was placed and removed on 01.28.21. Patient was successfully extubated. Hospitalization was significant for hyperglycemia with endocrinology consulted. The patient was placed on Lantus metformin and Trulicity. Karly completed her course of Keppra on 02/06/2021. Her Eliquis is being held secondary to craniotomy. Patient did require reduced dose of metoprolol. Patient remained in normal sinus rhythm throughout her stay. Modified barium swallow test was performed and patient was placed on a carbohydrate diet regular with thin liquids. She is to follow up with Dr. Robison in [address] Song [phone]. She will be discharged on subcu heparin for DVT prophylaxis to the rehab unit. 02/08/21 Trcharo was brought in from home.A list of home medications were given to examiner 02/09/21 Karly had developed urinary retention after removal of Duran. Patient had no prior history of urinary retention. Will DC tamsulosin and begin bladder training. Patient voices no complaints patient is pleased with her overall progress. Patient does become fatigued during therapy sessions. 02/10/21 Patient voiding on her own with PVRs of 30s. No other complaints. Patient admits to Patient is voiding on her own with low PVRs. Will discontinue Flomax. BS slightly elevated. Will increase Lantus to 22 units q hs.Patient requesting a temporary handicapped parking placard. 02/12/21 patient complaining of low back pain. Patient thinks she might have a urinary tract infection. 02/14/21Patient pleased with her progress. Patient with back pain off and on. Urine culture pending 02/15/21 I am feeling better . Appetite good. Patient making nice gains in therapy. Review of Systems Review of Systems: All systems reviewed & are unremarkable except as noted in HPI and below Functional Status Ambulation Ability Ability to Ambulate 10 Feet: Independent Ability to Ambulate 50 Feet With 2 Turns: Independent Ability to Ambulate 150 Feet: Independent Ambulation Assistive Devices: Walker, Wheeled Transfers Ability Ability to Transfer In/Out of Chair: Independent Exam Narrative: Exam Narrative: Head is shaven sutures are intact. No drainage noted. EOMI. Heart rate and rhythm is regular. Lungs are clear. Abdomen is obese. Endurance is improving. Balance better. Gait distance is improving. BUE 4/5 Objective Data Vital Signs Vital Signs: Vital Signs - 24 hr 02/14/21 14:00 02/14/21 21:01 02/14/21 21:23 Temperature 36.2 C L 35.9 C L Pulse Rate 78
[2021-02-15 12:03] LABS: Glucose Point of Care 113 mg/dl (65-105)
[2021-02-15 14:00] VITALS: BP 102/86; PULSE 77; RESP 20; TEMP 35.9; O2SAT 97
[2021-02-15 17:20] LABS: Glucose Point of Care 129 mg/dl (65-105)
[2021-02-15 20:00] VITALS: PULSE 71; RESP 16; O2SAT 97
[2021-02-15 20:39] VITALS: PULSE 64
[2021-02-15] MEDS: INSULIN GLARGINE (*BKC) 100 UNITS/ML 22 UNITS SUB-Q (20:44)
[2021-02-15 21:50] VITALS: BP 106/46; PULSE 71; RESP 16; TEMP 36; O2SAT 97
[2021-02-16] VITALS (8 sets, daily range): BP systolic 108–128; BP diastolic 51–62; PULSE 72–76; RESP 14–18; TEMP 35.9–36.2; O2SAT 94–100
[2021-02-16 01:30] LABS: Glucose Point of Care 118 mg/dl (65-105)
[2021-02-16 06:23] LABS: Glucose Point of Care 119 mg/dl (65-105)
[2021-02-16] MEDS: AMPICILLIN TRIHYDRATE 500 MG CAPSULE PO ×4 (06:28→19:51)
[2021-02-16] MEDS: HEPARIN SODIUM 5,000 UNITS/ML VIAL 5000 UNITS SUB-Q ×3 (06:28→20:30)
[2021-02-16] MEDS: LEVOTHYROXINE SODIUM 112 MCG TABLET PO (06:30)
[2021-02-16] MEDS: FLUTICASONE/UMECLIDIN/VILANTER 100-62.5-25 MCG ELLIPTA 1 PUFF INHALATION (08:25)
[2021-02-16] MEDS: FLUTICASONE PROP 44 MCG (*SP) 10.6 GM 2 PUFF INHALATION ×2 (08:25→19:51)
[2021-02-16] MEDS: ALBUTEROL SULFATE (*SP) INHALER 2 PUFF INHALATION ×4 (08:25→19:50)
[2021-02-16] MEDS: DOCUSATE SODIUM 100 MG CAPSULE PO ×2 (08:27→19:51)
[2021-02-16] MEDS: PANTOPRAZOLE SOD SESQUIHYDRATE 20 MG TAB PO (08:27)
[2021-02-16] MEDS: METOPROLOL TARTRATE 12.5 MG TABLET PO ×2 (08:27→19:52)
[2021-02-16] MEDS: metFORMIN HCL 500 MG TABLET 1000 MG PO ×2 (08:28→17:10)
[2021-02-16] MEDS: GABAPENTIN 100 MG CAPSULE PO ×3 (08:28→17:09)
[2021-02-16] MEDS: MAGNESIUM OXIDE 400 MG TABLET PO ×2 (08:28→17:10)
[2021-02-16] MEDS: ATORVASTATIN 20 MG TABLET PO (08:28)
[2021-02-16] MEDS: LOSARTAN POTASSIUM 25 MG TABLET PO (08:28)
[2021-02-16] MEDS: FUROSEMIDE 20 MG TABLET PO (08:28)
[2021-02-16] MEDS: SERTRALINE HCL 25 MG TABLET PO (08:28)
[2021-02-16] MEDS: AMIODARONE HCL 200 MG TABLET PO (08:28)
[2021-02-16 12:00] LABS: Glucose Point of Care 127 mg/dl (65-105)
--- NOTE | 2021-02-16 14:17 | WPDNEURORHBP ---
Subjective Date/time seen: 02/16/21 14:17 Interval history: The etiologic diagnosis is traumatic subdural hematoma, sub arachnoid hemorrhage, status post right craniotomy and evacuation 01/26/2021 The patient is a 65-year-old female past medical history of congestive heart failure, atrial fib on Eliquis,( which is on hold due to craniotomy) , hypertension, hyperlipidemia, type 2 diabetes, hypothyroidism, GERD, breast cancer, anxiety, depression, and COPD who presented to [facility] on 01/26/2021 following a fall with positive loss of consciousness. Patient was NOT intoxicated (per the chart at OSH it stated that patient was intoxicated, but patient and daughter states that she does not drink. Her was drunk and came into the ER the same night.) with her ,. She had a non syncopal fall off of 1 step. Patient denies that she was drinking and states that she does not drink. Patient was sleepy but arousable with stable vitals in route to the emergency department. CT imaging demonstrated acute right subdural hematoma with midline shift, subarachnoid hemorrhage. Patient became unresponsive and was intubated. Repeat CT revealed right subdural hematoma with increased midline shift. Patient was given PCC, mannitol, and Keppra and emergently taken to the operating room. Neuro surgery performed a right craniotomy and evacuation on 01/26/[address] Robison. The bone flap was replaced after evacuation. Subdural drain was placed and removed on 01.28.21. Patient was successfully extubated. Hospitalization was significant for hyperglycemia with endocrinology consulted. The patient was placed on Lantus metformin and Trulicity. Karly completed her course of Keppra on 02/06/2021. Her Eliquis is being held secondary to craniotomy. Patient did require reduced dose of metoprolol. Patient remained in normal sinus rhythm throughout her stay. Modified barium swallow test was performed and patient was placed on a carbohydrate diet regular with thin liquids. She is to follow up with Dr. Robison in [address] Song [phone]. She will be discharged on subcu heparin for DVT prophylaxis to the rehab unit. 02/08/21 Trcharo was brought in from home.A list of home medications were given to examiner 02/09/21 Karly had developed urinary retention after removal of Duran. Patient had no prior history of urinary retention. Will DC tamsulosin and begin bladder training. Patient voices no complaints patient is pleased with her overall progress. Patient does become fatigued during therapy sessions. 02/10/21 Patient voiding on her own with PVRs of 30s. No other complaints. Patient admits to 1 Patient is voiding on her own with low PVRs. Will discontinue Flomax. BS slightly elevated. Will increase Lantus to 22 units q hs.Patient requesting a temporary handicapped parking placard. 02/12/21 patient complaining of low back pain. Patient thinks she might have a urinary tract infection. 02/14/21Patient pleased with her progress. Patient with back pain off and on. Urine culture pending 02/15/21 I am feeling better . Appetite good. Patient making nice gains in therapy. 02/16; feeling better. ready to go home. no new complaints. weakness is imporving. Review of Systems Review of Systems: All systems reviewed & are unremarkable except as noted in HPI and below Functional Status Ambulation Ability Ability to Ambulate 10 Feet: Independent Ability to Ambulate 50 Feet With 2 Turns: Independent Ability to Ambulate 150 Feet: Independent Ambulation Assistive Devices: Walker, Wheeled Transfers Ability Ability to Transfer In/Out of Chair: Independent Exam Narrative: Exam Narrative: Head is shaven sutures are intact. No drainage noted. EOMI. Heart rate and rhythm is regular. Lungs are clear. Abdomen is obese. Endurance is improving. Balance better. Gait distance is improving. BUE 4/5 Objective Data Vital Signs Vital Signs: Vital Signs - 24 hr 02/15/21 2
[2021-02-16 17:08] LABS: Glucose Point of Care 183 mg/dl (65-105)
[2021-02-16 20:23] LABS: Glucose Point of Care 129 mg/dl (65-105)
[2021-02-16] MEDS: INSULIN GLARGINE (*BKC) 100 UNITS/ML 22 UNITS SUB-Q (20:37)
[2021-02-17 06:00] VITALS: BP 128/53; PULSE 73; RESP 18; TEMP 36.1; O2SAT 91
[2021-02-17] MEDS: HEPARIN SODIUM 5,000 UNITS/ML VIAL 5000 UNITS SUB-Q ×3 (06:50→21:02)
[2021-02-17] MEDS: AMPICILLIN TRIHYDRATE 500 MG CAPSULE PO ×4 (06:52→21:01)
[2021-02-17] MEDS: LEVOTHYROXINE SODIUM 112 MCG TABLET PO (06:55)
[2021-02-17 07:13] LABS: Glucose Point of Care 126 mg/dl (65-105)
[2021-02-17] MEDS: ALBUTEROL SULFATE (*SP) INHALER 2 PUFF INHALATION ×4 (08:47→20:02)
[2021-02-17] MEDS: FLUTICASONE/UMECLIDIN/VILANTER 100-62.5-25 MCG ELLIPTA 1 PUFF INHALATION (08:48)
[2021-02-17] MEDS: FLUTICASONE PROP 44 MCG (*SP) 10.6 GM 2 PUFF INHALATION ×2 (08:48→20:01)
[2021-02-17 08:49] VITALS: PULSE 73
[2021-02-17] MEDS: ATORVASTATIN 20 MG TABLET PO (08:49)
[2021-02-17] MEDS: metFORMIN HCL 500 MG TABLET 1000 MG PO ×2 (08:49→17:38)
[2021-02-17] MEDS: AMIODARONE HCL 200 MG TABLET PO (08:49)
[2021-02-17 08:50] VITALS: PULSE 73
[2021-02-17] MEDS: LOSARTAN POTASSIUM 25 MG TABLET PO (08:50)
[2021-02-17] MEDS: FUROSEMIDE 20 MG TABLET PO (08:50)
[2021-02-17] MEDS: PANTOPRAZOLE SOD SESQUIHYDRATE 20 MG TAB PO (08:50)
[2021-02-17] MEDS: GABAPENTIN 100 MG CAPSULE PO ×3 (08:50→17:37)
[2021-02-17] MEDS: MAGNESIUM OXIDE 400 MG TABLET PO ×2 (08:50→17:38)
[2021-02-17] MEDS: DOCUSATE SODIUM 100 MG CAPSULE PO ×2 (08:50→21:01)
[2021-02-17] MEDS: polyethylene glycoL 3350 17 GM POWD.PACK PO (08:50)
[2021-02-17] MEDS: METOPROLOL TARTRATE 12.5 MG TABLET PO ×2 (08:50→21:01)
[2021-02-17] MEDS: SERTRALINE HCL 25 MG TABLET PO (08:51)
[2021-02-17 12:06] LABS: Glucose Point of Care 94 mg/dl (65-105)
[2021-02-17 14:00] VITALS: BP 115/52; PULSE 78; RESP 16; TEMP 35.9; O2SAT 99
[2021-02-17 20:31] LABS: Glucose Point of Care 108 mg/dl (65-105)
[2021-02-17 20:31] LABS: Glucose Point of Care 105 mg/dl (65-105)
[2021-02-17 21:01] VITALS: PULSE 78
[2021-02-17 21:05] VITALS: BP 114/55; PULSE 80; RESP 16; TEMP 36.4; O2SAT 97
[2021-02-17] MEDS: INSULIN GLARGINE (*BKC) 100 UNITS/ML 22 UNITS SUB-Q (21:07)
[2021-02-18] MEDS: AMPICILLIN TRIHYDRATE 500 MG CAPSULE PO ×4 (05:56→21:06)
[2021-02-18] MEDS: HEPARIN SODIUM 5,000 UNITS/ML VIAL 5000 UNITS SUB-Q ×3 (05:56→21:06)
[2021-02-18] MEDS: LEVOTHYROXINE SODIUM 112 MCG TABLET PO (05:57)
[2021-02-18 06:00] VITALS: BP 109/56; PULSE 71; RESP 16; TEMP 36; O2SAT 96
[2021-02-18 06:27] LABS: Glucose Point of Care 132 mg/dl (65-105)
[2021-02-18] MEDS: FLUTICASONE PROP 44 MCG (*SP) 10.6 GM 2 PUFF INHALATION ×2 (08:54→21:07)
[2021-02-18] MEDS: FLUTICASONE/UMECLIDIN/VILANTER 100-62.5-25 MCG ELLIPTA 1 PUFF INHALATION (08:54)
[2021-02-18] MEDS: ALBUTEROL SULFATE (*SP) INHALER 2 PUFF INHALATION ×4 (08:54→21:07)
[2021-02-18 08:55] VITALS: PULSE 72
[2021-02-18] MEDS: GABAPENTIN 100 MG CAPSULE PO ×3 (08:55→17:04)
[2021-02-18] MEDS: LOSARTAN POTASSIUM 25 MG TABLET PO (08:55)
[2021-02-18] MEDS: metFORMIN HCL 500 MG TABLET 1000 MG PO ×2 (08:55→17:03)
[2021-02-18] MEDS: ATORVASTATIN 20 MG TABLET PO (08:55)
[2021-02-18] MEDS: METOPROLOL TARTRATE 12.5 MG TABLET PO ×2 (08:55→21:06)
[2021-02-18 08:56] VITALS: PULSE 72
[2021-02-18] MEDS: FUROSEMIDE 20 MG TABLET PO (08:56)
[2021-02-18] MEDS: SERTRALINE HCL 25 MG TABLET PO (08:56)
[2021-02-18] MEDS: AMIODARONE HCL 200 MG TABLET PO (08:56)
[2021-02-18] MEDS: MAGNESIUM OXIDE 400 MG TABLET PO ×2 (08:56→17:03)
[2021-02-18] MEDS: PANTOPRAZOLE SOD SESQUIHYDRATE 20 MG TAB PO (08:56)
[2021-02-18] MEDS: DOCUSATE SODIUM 100 MG CAPSULE PO ×2 (08:56→21:06)
--- NOTE | 2021-02-18 09:17 | WPDNEURORHBP ---
Subjective Date/time seen: 02/18/21 09:17 Interval history: The etiologic diagnosis is traumatic subdural hematoma, sub arachnoid hemorrhage, status post right craniotomy and evacuation 01/26/2021 The patient is a 65-year-old female past medical history of congestive heart failure, atrial fib on Eliquis,( which is on hold due to craniotomy) , hypertension, hyperlipidemia, type 2 diabetes, hypothyroidism, GERD, breast cancer, anxiety, depression, and COPD who presented to [facility] on 01/26/2021 following a fall with positive loss of consciousness. Patient was NOT intoxicated (per the chart at OSH it stated that patient was intoxicated, but patient and daughter states that she does not drink. Her was drunk and came into the ER the same night.) with her ,. She had a non syncopal fall off of 1 step. Patient denies that she was drinking and states that she does not drink. Patient was sleepy but arousable with stable vitals in route to the emergency department. CT imaging demonstrated acute right subdural hematoma with midline shift, subarachnoid hemorrhage. Patient became unresponsive and was intubated. Repeat CT revealed right subdural hematoma with increased midline shift. Patient was given PCC, mannitol, and Keppra and emergently taken to the operating room. Neuro surgery performed a right craniotomy and evacuation on 01/26/[address] Robison. The bone flap was replaced after evacuation. Subdural drain was placed and removed on 01.28.21. Patient was successfully extubated. Hospitalization was significant for hyperglycemia with endocrinology consulted. The patient was placed on Lantus metformin and Trulicity. Karly completed her course of Keppra on 02/06/2021. Her Eliquis is being held secondary to craniotomy. Patient did require reduced dose of metoprolol. Patient remained in normal sinus rhythm throughout her stay. Modified barium swallow test was performed and patient was placed on a carbohydrate diet regular with thin liquids. She is to follow up with Dr. Robison in [address] Song [phone]. She will be discharged on subcu heparin for DVT prophylaxis to the rehab unit. 02/08/21 Trcharo was brought in from home.A list of home medications were given to examiner 02/09/21 Karly had developed urinary retention after removal of Duran. Patient had no prior history of urinary retention. Will DC tamsulosin and begin bladder training. Patient voices no complaints patient is pleased with her overall progress. Patient does become fatigued during therapy sessions. 02/10/21 Patient voiding on her own with PVRs of 30s. No other complaints. Patient admits to Patient is voiding on her own with low PVRs. Will discontinue Flomax. BS slightly elevated. Will increase Lantus to 22 units q hs.Patient requesting a temporary handicapped parking placard. 02/12/21 patient complaining of low back pain. Patient thinks she might have a urinary tract infection. 02/14/21Patient pleased with her progress. Patient with back pain off and on. Urine culture pending 02/15/21 I am feeling better . Appetite good. Patient making nice gains in therapy. 02/16; feeling better. ready to go home. no new complaints. weakness is improving 02/17/21 Daughter did well with weekend training. Patient feeling confident to return home. Review of home medications was performed. will bring in home meds to review again on some medications. Patient is not to resume Eliquis due to recent craniotomy. has picked up a walker through an agency. Patient is deciding if she would like a walker through her insurance. Patient is considering outpatient physical therapy and occupational therapy at [facility], [place]. Review of Systems Review of Systems: All systems reviewed & are unremarkable except as noted in HPI and below Functional Status Ambulation Ability Ability to Ambulate 10 Feet: Independent Ability to Ambulate 50 Feet With 2 Turns: Independen
[2021-02-18 11:35] LABS: Glucose Point of Care 141 mg/dl (65-105)
--- NOTE | 2021-02-18 12:09 | PCOTNOTE ---
Patient has demonstrated independence with all ADLs and functional mobility this date. Patient placed in the [facility] this date. Discussed with patient her goals for the program. Sheet with goals placed in patient's room. Patient verbalized an understanding to the program.
[2021-02-18 14:00] VITALS: BP 114/60; PULSE 78; RESP 18; TEMP 36.6; O2SAT 97
[2021-02-18 16:31] LABS: Glucose Point of Care 132 mg/dl (65-105)
[2021-02-18 21:06] VITALS: PULSE 78
[2021-02-18] MEDS: INSULIN GLARGINE (*BKC) 100 UNITS/ML 22 UNITS SUB-Q (21:31)
[2021-02-18 22:00] VITALS: BP 117/52; PULSE 66; RESP 18; TEMP 36.1; O2SAT 96
[2021-02-19 04:52] LABS: Glucose Point of Care 135 mg/dl (65-105)
[2021-02-19 06:00] VITALS: BP 132/56; PULSE 78; RESP 18; TEMP 36.2; O2SAT 98
[2021-02-19] MEDS: LEVOTHYROXINE SODIUM 112 MCG TABLET PO (06:17)
[2021-02-19] MEDS: HEPARIN SODIUM 5,000 UNITS/ML VIAL 5000 UNITS SUB-Q (06:17)
[2021-02-19] MEDS: AMPICILLIN TRIHYDRATE 500 MG CAPSULE PO (06:17)
[2021-02-19] MEDS: ALBUTEROL SULFATE (*SP) INHALER 2 PUFF INHALATION (08:26)
[2021-02-19] MEDS: FLUTICASONE PROP 44 MCG (*SP) 10.6 GM 2 PUFF INHALATION (08:26)
[2021-02-19] MEDS: FLUTICASONE/UMECLIDIN/VILANTER 100-62.5-25 MCG ELLIPTA 1 PUFF INHALATION (08:26)
[2021-02-19 08:27] VITALS: PULSE 72
[2021-02-19] MEDS: metFORMIN HCL 500 MG TABLET 1000 MG PO (08:27)
[2021-02-19] MEDS: METOPROLOL TARTRATE 12.5 MG TABLET PO (08:27)
[2021-02-19] MEDS: AMIODARONE HCL 200 MG TABLET PO (08:27)
[2021-02-19] MEDS: LOSARTAN POTASSIUM 25 MG TABLET PO (08:27)
[2021-02-19] MEDS: ATORVASTATIN 20 MG TABLET PO (08:27)
[2021-02-19] MEDS: GABAPENTIN 100 MG CAPSULE PO (08:27)
[2021-02-19] MEDS: PANTOPRAZOLE SOD SESQUIHYDRATE 20 MG TAB PO (08:27)
[2021-02-19] MEDS: MAGNESIUM OXIDE 400 MG TABLET PO (08:27)
[2021-02-19] MEDS: DOCUSATE SODIUM 100 MG CAPSULE PO (08:27)
[2021-02-19] MEDS: FUROSEMIDE 20 MG TABLET PO (08:28)
[2021-02-19] MEDS: SERTRALINE HCL 25 MG TABLET PO (08:28)
[2021-02-19 11:35] LABS: Glucose Point of Care 137 mg/dl (65-105)
--- NOTE | 2021-02-19 13:11 | PM.DS ---
DS: Admitting Diagnosis Admitting Diagnosis Admitting Diagnosis: Subarachnoid hemorrhage subdural hematoma DS: Discharge Diagnosis Discharge Diagnosis (1) Subdural hematoma: Code(s): S06.5X9A - Traumatic subdural hemorrhage with loss of consciousness of unspecified duration, initial encounter Status: Acute Assessment and Plan: s/p craniotomy (2) Subarachnoid hemorrhage: Code(s): I60.9 - Nontraumatic subarachnoid hemorrhage, unspecified Status: Acute Assessment and Plan: Eliquis is held (3) Status post craniotomy: Code(s): Z98.890 - Other specified postprocedural states Status: Acute Assessment and Plan: Eliquis is being held. Dr Robison for followup (4) Hypothyroidism (acquired): Code(s): E03.9 - Hypothyroidism, unspecified Status: Acute Assessment and Plan: levothyroxine (5) BMI 37.0-37.9, adult: Code(s): Z68.37 - Body mass index [BMI] 37.0-37.9, adult Status: Acute (6) Type 2 diabetes mellitus: Code(s): E11.9 - Type 2 diabetes mellitus without complications Status: Acute Assessment and Plan: family members will bring in her Trulicity. Patient is on metformin 1000 mg b.i.d. Lantus 20 mg daily. Will add sliding scale insulin 6/7 increase Lantus to 22 units. (7) Obstructive sleep apnea: Onset Date: ~06/2020 Code(s): G47.33 - Obstructive sleep apnea (adult) (pediatric) Status: Acute Assessment and Plan: CPAP (8) Atrial fibrillation status post cardioversion: Code(s): I48.91 - Unspecified atrial fibrillation Status: Acute Assessment and Plan: amiodarone (9) S/P total hip arthroplasty: Qualifiers: Laterality: right Qualified Code(s): Z96.641 - Presence of right artificial hip joint Code(s): Z96.649 - Presence of unspecified artificial hip joint Status: Acute (10) CHF (congestive heart failure): Qualifiers: Heart failure chronicity: acute Heart failure type: unspecified Qualified Code(s): I50.9 - Heart failure, unspecified Code(s): I50.9 - Heart failure, unspecified Status: Acute (11) COPD (chronic obstructive pulmonary disease): Qualifiers: COPD type: unspecified COPD Qualified Code(s): J44.9 - Chronic obstructive pulmonary disease, unspecified Code(s): J44.9 - Chronic obstructive pulmonary disease, unspecified Status: Acute Assessment and Plan: inhalers (12) Hyperlipidemia associated with type 2 diabetes mellitus: Code(s): E11.69 - Type 2 diabetes mellitus with other specified complication; E78.5 - Hyperlipidemia, unspecified Status: Acute (13) Hypertension associated with diabetes: Code(s): E11.59 - Type 2 diabetes mellitus with other circulatory complications; I10 - Essential (primary) hypertension Status: Acute Assessment and Plan: Cozaar 25 mg daily. Lopressor 12.5 mg q.12 hours (14) HTN (hypertension): Qualifiers: Hypertension type: essential hypertension Qualified Code(s): I10 - Essential (primary) hypertension Code(s): I10 - Essential (primary) hypertension Status: Chronic Assessment and Plan: Coreg (15) Neuropathy: Code(s): G62.9 - Polyneuropathy, unspecified Status: Acute Assessment and Plan: Neurontin 100 mg t.i.d. (16) Atrial fibrillation with rapid ventricular response: Code(s): I48.91 - Unspecified atrial fibrillation Status: Acute Assessment and Plan: Eliquis has been held due to craniotomy. Patient is on amiodarone 200 mg daily. This dose has been corrected from the transfer sheet. (17) Urinary retention: Code(s): R33.9 - Retention of urine, unspecified Status: Acute Assessment and Plan: patient started on Flomax at outside hospital. Duran was removed and patient was unable to void. Patient with low PVRs and able t
== END 2021-02-19 10:00 | disposition home or self-care (01) | DRG 949 ==
PROVIDERS: Admitting Provider Physical Medicine & Rehabilitation; PCP Emergency Medicine; Visit Provider Physical Medicine & Rehabilitation
DX: S06.6X9D Traumatic subarachnoid hemorrhage with loss of consciousness of unspecified duration, subsequent encounter (principal); N39.0 Urinary tract infection, site not specified; W10.9XXD Fall (on) (from) unspecified stairs and steps, subsequent encounter; Z48.811 Encounter for surgical aftercare following surgery on the nervous system; I11.0 Hypertensive heart disease with heart failure; I50.9 Heart failure, unspecified; I48.91 Unspecified atrial fibrillation; E11.42 Type 2 diabetes mellitus with diabetic polyneuropathy; E11.65 Type 2 diabetes mellitus with hyperglycemia; E66.9 Obesity, unspecified; E78.5 Hyperlipidemia, unspecified; E03.9 Hypothyroidism, unspecified; F41.8 Other specified anxiety disorders; J44.9 Chronic obstructive pulmonary disease, unspecified; K21.9 Gastro-esophageal reflux disease without esophagitis; Z68.36 Body mass index [BMI] 36.0-36.9, adult; Z79.4 Long term (current) use of insulin; Z96.641 Presence of right artificial hip joint; Z87.891 Personal history of nicotine dependence; Z85.3 Personal history of malignant neoplasm of breast; Z79.01 Long term (current) use of anticoagulants; G47.33 Obstructive sleep apnea (adult) (pediatric)
CPT/HCPCS: 36415; 80053; 81001; 82948; 83036; 85025; 87077; 87086; 87088; 87186; 92507; 92523; 97110; 97116; 97129; 97130; 97161; 97165; 97530; 97535; 97542; A9270; J1644; J1815

== ENCOUNTER 2021-08-19 09:40 | Outpatient (CLI) | payer MEDICARE, OTHER, SELFPAY ==
[2021-08-19 13:32] LABS: Free T4 Free Thyroxine 1.69 ng/mL (0.78-2.19)
== END 2021-08-19 09:41 | disposition home or self-care (01) ==
LOC: ANHWCLAB 09:42
PROVIDERS: PCP Emergency Medicine; Visit Provider Internal Medicine Endocrinology, Diabetes & Metabolism
DX: E03.9 Hypothyroidism, unspecified (principal); E11.65 Type 2 diabetes mellitus with hyperglycemia; Z78.0 Asymptomatic menopausal state
CPT/HCPCS: 36415; 82607; 84439; 84443

== ENCOUNTER 2021-12-25 15:05 | Outpatient (CLI) | payer MEDICARE, OTHER, SELFPAY ==
--- NOTE | ~2021-12-25 | US_ITS ---
EXAMINATION: US soft tissue groin RT DATE: 12/25/2021 15:33 INDICATION: Enlarged right inguinal lymph nodes TECHNIQUE: Multiple grayscale and Doppler ultrasound images of the region of concern at the right aiden in as well as the contralateral left groin for comparison were obtained. COMPARISON: None FINDINGS: Likely symmetric pattern of normal-sized bilateral inguinal lymph nodes, the largest on the right joao suring 7 mm in maximal short axis diameter in the largest on the left measuring [address] No other abnormal masses or fluid collections identified. IMPRESSION: 1. Relatively symmetric pattern of bilateral normal-sized inguinal lymph nodes. Reviewed, dictated and finalized at location A.
== END 2021-12-25 15:06 | disposition home or self-care (01) ==
LOC: ANHIMG 15:06
PROVIDERS: PCP Emergency Medicine; Visit Provider Emergency Medicine
DX: R59.0 Localized enlarged lymph nodes (principal)
CPT/HCPCS: 76882

== ENCOUNTER 2022-01-24 12:18 | Outpatient (CLI) | payer MEDICARE, OTHER, SELFPAY ==
--- NOTE | ~2022-01-24 | US_ITS ---
EXAMINATION: US venous doppler [facility] DATE: 01/24/2022 13:18 INDICATION: Left lower limb swelling and pain TECHNIQUE: Grayscale ultrasound images without and with compression and Doppler ultrasound images of the left lower extremity veins were obtained. COMPARISON: None. FINDINGS: The visualized portions of left common femoral vein, profunda (deep) femoral vein, femoral vein, popl iteal vein, peroneal veins, posterior tibial veins, gastrocnemius vein and greater saphenous vein out flow are patent. IMPRESSION: 1. No deep venous thrombosis in the left lower limb. Reviewed, dictated and finalized at location A.
== END 2022-01-24 12:19 | disposition home or self-care (01) ==
PROVIDERS: PCP Emergency Medicine; Visit Provider Internal Medicine Cardiovascular Disease
DX: M79.89 Other specified soft tissue disorders (principal)
CPT/HCPCS: 93971

== ENCOUNTER 2022-03-06 08:33 | Outpatient (CLI) | payer MEDICARE, OTHER, SELFPAY ==
--- NOTE | ~2022-03-06 | MM_ITS ---
EXAMINATION: MM screening keith BI w august HISTORY: Screening TECHNIQUE: Craniocaudal and mediolateral oblique 3-D tomosynthesis images were obtained and synthetic 2-D images were generated. CAD analysis was submitted and interpreted. COMPARISON: Comparison to multiple prior studies sequentially, with oldest reviewed study dated 12/03. BREAST PARENCHYMAL COMPOSITION: Breast composition is almost entirely fatty FINDINGS: There are surgical changes in the right breast, consistent with previous lumpectomy. There is no evidence of suspicious mass, calcification, or architectural distortion to suggest malignancy i n either breast. There has been no suspicious interval change. IMPRESSION: 1. No mammographic evidence of malignancy. 2. Recommend routine screening mammography in one year. BI-RADS Category 1: Negative Reviewed, dictated and finalized at location A.
== END 2022-03-06 08:34 | disposition home or self-care (01) ==
PROVIDERS: PCP Emergency Medicine; Visit Provider Emergency Medicine
DX: Z12.31 Encounter for screening mammogram for malignant neoplasm of breast (principal)
CPT/HCPCS: 77063; 77067

== ENCOUNTER → 2022-06-17 13:13 | Outpatient (CLI) | payer MEDICARE, OTHER, SELFPAY ==
--- NOTE | ~2022-06-17 | DEXA_ITS ---
Bone Density Report Name: ELKE CHAO Age: 66 Sex: Female Ethnicity: White Date of : 1955 Indication: postmenopausal; screening for osteoporosis; height loss; Referring Provider: SIA GLASER Study: Bone densitometry was performed. Exam Date: June 17, 2022 Accession number: [id number] Bone Density: Region BMD T-score Z-score Classification AP Spine (L1-L4) 1.175 1.2 3.1 Normal Femoral Neck (Left) 0.766 -0.7 0.9 Normal Total Hip (Left) 0.968 0.2 1.6 Normal World Health Organization criteria for BMD impression classify patients as: Normal (T-score at or above -1.0), Osteopenia (T-score between -1.0 and -2.5), or Osteoporosis (T-score at or below -2.5). 10-year Fracture Risk: FRAX not reported because: All T-scores for Spine Total, Hip Total, Femoral Neck at or above -1.0 Previous Exams: Region Exam Age BMD T-score BMD Change BMD Change Date g/cm2 vs Baseline vs Previous AP Spine(L1-L4) 06/17/2022 66 1.175 1.2 -0.046 -0.046 11/26/2018 63 1.221 1.6 Total Hip(Left) 06/17/2022 66 0.968 0.2 -0.047 -0.047 11/26/2018 63 1.015 0.6 *Denotes significance at 95% confidence level, LSC for AP Spine = 0.022 g/cm2, LSC for Total Hip = 0.027 g/cm2 Clinical Information Provided by Patient: Has used the following medications: Vitamin D Patient maximum height was 65.5 Menopause Age: 51 Drinks caffeinated beverages Onset of menses at age 13 Number of children 2 Impression: The patient has normal bone mass. No significant bone loss was observed. Discussion: BONE DENSITY IS ABOVE THE MINIMUM DESIRABLE LEVEL AT ALL SKELETAL SITES TESTED. This patient?s bone mineral density is above the minimum desirable level (T-score -1.0 or better) at all sites measured. The patient should follow a healthful lifestyle (good nutrition with adequate calcium and vitamin D, and appropriate weight-bearing exercise). Follow-Up: Consider repeating this study in 5 years or sooner if there is some new clinical indication. Reported by: JEFFRY on 06/17/2022 1:47:00 PM. Reviewed, dictated and finalized at location [facility]
== END ==
PROVIDERS: PCP Emergency Medicine; Visit Provider Nurse Practitioner Family
DX: Z78.0 Asymptomatic menopausal state (principal)
CPT/HCPCS: 77080

== ENCOUNTER 2022-10-03 08:39 | Outpatient (CLI) | payer MEDICARE, OTHER, SELFPAY ==
[2022-10-03 10:13] LABS: Basophils Percent Auto 0.7 % (0.2-1.2); Eosinophils Absolute Auto 0.2 K/mm3 (0-0.3); Eosinophils Percent Auto 2.6 % (0-4.4); Hematocrit 21.5 % (37.0-47.0); Immature Granulocyte Absolute 0.06 K/mm3 (0.00-0.031); Lymphocytes Absolute Auto 0.87 K/mm3 (0.9-3.2); Lymphocytes Percent Auto 14.2 % (18.3-44.2); Mean Corpuscular HGB Conc 21.4 g/dl (32-36); Mean Corpuscular Hemoglobin 13.9 pg (26-34); Mean Corpuscular Volume 65.2 fl (80-100); Monocytes Absolute Auto 0.5 K/mm3 (0.1-0.6); Monocytes Percent Auto 8.2 % (2.6-8.5); Neutrophils Absolute Auto 4.5 K/mm3 (1.3-6.7); Neutrophils Percent Auto 73.3 % (45.5-73.1); Nucleated Red Blood Cells Perc 0.7 % (0.0-0.2); Platelet Count Result 197 k/mm3 (150-375); Red Cell Distribution Width 23.4 % (11.5-14.5); White Blood Count 6.1 K/mm3 (4.5-10.0)
[2022-10-03 10:27] LABS: Alanine Aminotransferase 13 U/L (6-35); Albumin Level 3.9 g/dL (3.5-5.1); Alkaline Phosphatase 47 U/L (38-126); Anion Gap 10 mmol/L (8-16); Aspartate Amino Transferase 17 U/L (14-36); Bilirubin,Total 1.3 mg/dL (0.2-1.3); Blood Urea Nitrogen 14 mg/dL (7-17); Calcium 8.7 mg/dL (8.4-10.2); Carbon Dioxide 26 mmol/L (22-30); Chloride 104 mmol/L (98-107); Estimated Glomerular Filt Rate > 60; Glucose 192 mg/dL (65-110); Potassium 3.8 mmol/L (3.4-5.0); Sodium 140 mmol/L (137-145)
[2022-10-03 10:56] LABS: Hemoglobin 4.6 g/dL (12.0-15.0)
[2022-10-03 11:04] LABS: Anisocytosis 3+ (NORMAL); Hypochromasia 2+ (NORMAL); Microcytosis 2+ (NORMAL); Platelet Estimate Adequate (Adequate); Schistocytes None Seen (NORMAL)
[2022-10-03 11:05] LABS: Nucleated Red Blood Cells 2 %
== END 2022-10-03 08:40 | disposition home or self-care (01) ==
PROVIDERS: PCP Emergency Medicine; Visit Provider Internal Medicine Cardiovascular Disease
DX: Z79.899 Other long term (current) drug therapy (principal)
CPT/HCPCS: 36415; 80053; 85025; 85055

== ENCOUNTER 2022-10-03 11:58 | Inpatient (IN) | payer MEDICARE, OTHER, SELFPAY ==
[2022-10-03] VITALS (27 sets, daily range): BP systolic 117–145; BP diastolic 40–80; PULSE 70–87; RESP 13–24; TEMP 36.4–37.4; O2SAT 95–100; BMI 37.2
--- NOTE | ~2022-10-03 | XR_ITS ---
EXAMINATION: XR chest 1V portable INDICATION: Shortness of breath TECHNIQUE: Portable AP chest at 1854 hours COMPARISON: 03/28/2020 FINDINGS: The lungs are free of acute opacities. No pleural effusion or pneumothorax. The cardiomedia stinal silhouette is normal. There are surgical changes of right partial mastectomy. IMPRESSION: 1. No acute cardiopulmonary abnormality. Reviewed, dictated and finalized at location F. EMENT DIRECTOR
--- NOTE | ~2022-10-03 | US_ITS ---
US abdomen limited INDICATION: Rib pain. PROCEDURE: Realtime right upper abdominal ultrasound. COMPARISON: No prior studies for comparison. FINDINGS: The pancreas is normal without focal mass or pancreatic ductal dilation. Liver echotexture is normal without focal mass or intrahepatic biliary dilatation. There is normal directional flow i n the portal vein. The gallbladder is normal without stones, gallbladder wall thickening or pericholecystic fluid. Comm on bile duct measures 4 mm. No sonographic Wilks's sign. IMPRESSION: 1: Normal limited abdominal ultrasound. Reviewed, dictated and finalized at location A. NEERING SCIENTIST
[2022-10-03 12:57] LABS: Hematocrit 20.2 % (37.0-47.0); Hemoglobin 4.4 g/dL (12.0-15.0)
--- NOTE | 2022-10-03 13:19 | PM.IMHP ---
H&P: HPI History of Present Illness Date/Time: 10/03/22 13:19 Chief Complaint: Abnormal labs Narrative: This is a 66-year-old female patient who came to the emergency room due to her reported low hemoglobin. The patient has gone to see Dr. Collier in the office today because she has been feeling weak and tired and short of breath. She was told to double her Lasix for the next 3 days. She is more short of breath with exertion. Some lab work was done today and she was found to have a low hemoglobin and she was told to come to the emergency room. The patient is just on a baby aspirin but no blood thinners. She does have a watchman to monitor for her AFib. Her H&H was found to be 4.6 and 21.5. Repeat H&H was 4.4 and 20.2. Influenza A/B RSV and COVID are all negative. Is reported the patient's stool for occult blood was positive. GI has been consulted. Patient has been typed and cross-matched for blood transfusion. Patient is being admitted to observation status on the date of service of 10/03/2021. Review of Systems Review of Systems: See HPI All systems reviewed & are unremarkable except as noted in HPI and below Constitutional: Constitutional: Reports as per HPI and Reports no additional constitutional complaints Eyes: Eyes: Reports as per HPI and Reports no additional eye complaints ENT: Reports system reviewed and no additional complaints, except as documented and Reports Normal hearing present Cardiovascular: Cardiovascular: Reports no additional cardiovascular complaints Respiratory: Respiratory: Reports no additional respiratory complaints and Reports no additional respiratory complaints Gastrointestinal: Gastrointestinal: Reports as per HPI and Reports no additional gastrointestinal complaints Musculoskeletal: Musculoskeletal: Reports no additional musculoskeletal complaints Integumentary/Breasts: Skin/Breast: Reports system reviewed and no additional complaints, except as docu and Reports as per HPI Neurologic: Reports system reviewed and no additional complaints, except as documented, Reports as per HPI and Reports Normal hearing present Psychiatric: Psychiatric: Reports no additional psychiatric complaints and Reports as per HPI Endocrine: Endocrine: Reports no additional endocrine complaints Hematologic/Lymphatic: Hematologic/Lymphatic: Reports no additional hematologic/lymphatic complaints Allergic/Immunologic: Allergic/Immunologic: Reports no additional allergic/immunologic complaints [facility] Past Medical History Medical History (Updated 10/03/22 @ 17:49 by Merline Suárez NP) Anemia Arthritis Atrial fibrillation with rapid ventricular response Bone lesion Breast cancer CHF (congestive heart failure) COPD (chronic obstructive pulmonary disease) Depression H/O thyroid disease Hyperlipidemia associated with type 2 diabetes mellitus Hypertension Hypothyroidism (acquired) Left thyroid nodule Treated with radioactive therapy Neuropathy Obesity Obstructive sleep apnea (~06/2020) She does not use a CPAP MARIA LUISA (obstructive sleep apnea) Post-menopausal Primary osteoarthritis of right hip Subarachnoid hemorrhage Subdural hematoma Type 2 diabetes mellitus with hyperglycemia Surgical History Surgical History Brain bleed Surgery to stop brain bleed. 01/26/21 H/O craniotomy H/O lumpectomy right breast, 05/2009 H/O tubal ligation 06/1978 History of hip replacement right, 05/2017 Presence of right artificial hip joint S/P total hip arthroplasty Status post craniotomy Family History Family History Father , 55 Type 2 diabetes mellitus with diabetic neuropathy, unspecified Family history of malignant neoplasm of stomach Alcoholic Diabetes mellitus Mother , 74 Type 2 diabetes mellitus with diabetic neuropathy, unspecified Family history of congestive heart failure
--- NOTE | 2022-10-03 13:22 | ED.GENADULT ---
HPI - General Adult General Chief complaint: Recheck/Abnormal Lab/Rx Stated complaint: drGaby called and told her hemoglobin was low Time Seen by Provider: 10/03/22 12:10 Source: RN notes reviewed History of Present Illness HPI narrative: Patient presents emergency department from home for low hemoglobin level. The patient states she gone to see Dr. Collier in the office today states that over the past several days she has been feeling weak and tired and having shortness of breath with exertion she states that she had been concerned was cardiac in nature and had seen Dr. Siddiqui and had blood work done as an outpatient Dr. Tahira cameron and states that her hemoglobin is low and she may come to the ER for further evaluation states she has not noted any blood in her stool she states she is on an aspirin but is not on any blood thinners since having a watchman procedure done in January she denies any fevers or chills chest pain abdominal pain nausea or vomiting Related Data Home Medications Medication Instructions Recorded Confirmed furosemide 20 mg tablet (Lasix) 20 mg PO DAILY 05/07/20 09/09/22 magnesium oxide 400 mg PO DAILY 05/15/20 09/09/22 cranberry 500 mg capsule 500 mg PO DAILY 09/13/20 09/09/22 losartan 25 mg tablet (Cozaar) 25 mg PO DAILY 12/06/20 09/09/22 multivitamin (One-A-Day Essential 1 tablet PO DAILY 12/06/20 09/09/22 tablet) amiodarone 200 mg tablet 200 mg PO DAILY 03/03/22 09/09/22 cholecalciferol (vitamin D3) 50 50 mcg PO DAILY 03/03/22 09/09/22 mcg (2,000 unit) capsule mecobalamin (vitamin B12) 1,000 1,000 mcg sublingual DAILY 03/03/22 09/09/22 mcg disintegrating tablet,sublingual aspirin 325 mg tablet 325 mg PO DAILY 06/05/22 09/09/22 Allergies Allergy/AdvReac Type Severity Reaction Status Date / Time lisinopril Allergy Unknown Hives Verified 10/03/22 14:32 Review of Systems Review of Systems: Gen.: Denies fevers or chills ENT: Denies congestion Respiratory: Reports shortness of breath with exertion CV: Denies chest pain or palpitations GI: Denies abdominal pain nausea, emesis or diarrhea Musculoskeletal: Denies back pain or muscle pain Neuro: Denies numbness, tingling, weakness or focal weakness Skin: Denies rash Except as documented, all other systems reviewed and negative [facility] Past Medical History Medical History Anemia Arthritis Atrial fibrillation with rapid ventricular response Bone lesion Breast cancer CHF (congestive heart failure) COPD (chronic obstructive pulmonary disease) Depression H/O thyroid disease Hyperlipidemia associated with type 2 diabetes mellitus Hypertension Hypothyroidism (acquired) Left thyroid nodule Neuropathy Obesity Obstructive sleep apnea (~06/2020) MARIA LUISA (obstructive sleep apnea) Post-menopausal Primary osteoarthritis of right hip Subarachnoid hemorrhage Subdural hematoma Type 2 diabetes mellitus with hyperglycemia Surgical History Surgical History Brain bleed Surgery to stop brain bleed. 01/26/21 H/O craniotomy H/O lumpectomy right breast, 05/2009 H/O tubal ligation 06/1978 History of hip replacement right, 05/2017 Presence of right artificial hip joint S/P total hip arthroplasty Status post craniotomy Family History Family History Father , 55 Family history of malignant neoplasm of stomach Alcoholic Type 2 diabetes mellitus with diabetic neuropathy, unspecified Mother , 74 Family history of congestive heart failure Type 2 diabetes mellitus with diabetic neuropathy, unspecified Sibling Congestive heart failure Sibling Brain tumor Blood clot in vein Diabetes mellitus type 2 with complications Other Cataracts, bilateral Cerebrovascular accident Depression Diabetes mellitus Family history of alcoholism Family history of allergic disorder
[2022-10-03 13:50] LABS: Partial Thromboplastin Time 25.6 SECONDS (22.3-36.8)
[2022-10-03 13:51] LABS: INR 1.2; Prothrombin Time 14.8 Seconds (11.1-14.7)
[2022-10-03 14:16] LABS: Influenza A QL RT-PCR Negative (Negative); Influenza B QL RT-PCR Negative (Negative); RSV RNA, RT-PCR Negative (Negative); SARS-CoV-2 RNA PCR Negative
--- NOTE | 2022-10-03 14:27 | ADMGEN ---
This patient, Karly Jon, was admitted to 2 Medical Room 256-01. Patient/family oriented to hospital policies and general routines including ID bracelet, bed and alarms, visiting hours, pain management, procedures, bathroom and other care routines, personal items, smoking policy, room service/diet, and visiting hours. Information on how to activate the Rapid Response Team has been discussed. Patient/Family are encouraged to report perceived risks to care and to ask questions if they do not understand what they are told or what they should do. Report received from AD Miller.
[2022-10-03 17:07] LABS: Glucose Point of Care 100 mg/dl (65-105)
[2022-10-03] MEDS: DOCUSATE SODIUM 100 MG CAPSULE PO (17:54)
[2022-10-03] MEDS: GABAPENTIN 100 MG CAPSULE PO (17:54)
[2022-10-03] MEDS: SODIUM CHLORIDE 0.9% IV 250 ML 30 ML IV CONT (17:55)
[2022-10-03] MEDS: INSULIN GLARGINE (*BKC) 100 UNITS/ML 40 UNITS SUB-Q (18:06)
[2022-10-03] MEDS: METOPROLOL TARTRATE 12.5 MG TABLET PO (20:54)
[2022-10-03] MEDS: FUROSEMIDE INJ 40 MG/4 ML VIAL 20 MG IV PUSH (20:56)
[2022-10-03] MEDS: LEVOTHYROXINE SODIUM 112 MCG TABLET PO (20:57)
[2022-10-03 21:12] LABS: Glucose Point of Care 115 mg/dl (65-105)
[2022-10-03 23:21] LABS: Hematocrit 25.5 % (37.0-47.0)
[2022-10-03 23:23] LABS: Hemoglobin 6.3 g/dL (12.0-15.0)
[2022-10-04] VITALS (23 sets, daily range): BP systolic 107–133; BP diastolic 46–61; PULSE 68–81; RESP 14–18; TEMP 36.4–37.2; O2SAT 94–98
--- NOTE | 2022-10-04 | ECHO_ITS ---
Patient Info Name: Karly Jon Age: 66 years : 1955 Gender: Female Ht: 65 in Wt: 223 lbs BSA: 2.20 m2 HR: 78 bpm BP: 112 / 47 mmHg Heart Rhythm: Paced Technical Quality: Good Exam Date: 10/04/2022 1:21 PM Exam Location: [facility] Pulmonary Exam Room: 256 Patient Status: Inpatient Admit Date: 10/04/2022 Staff Ordering Physician: Filemon Jarrell Testing And Regulating Chief: Uma Lopes RDCS Attending Provider: Lavelle Liu MD Referring Physician: Wesly MONSIVAIS; Exam Type: CA echo doppler color flow Study Info Indications - CHF SOB Complete two-dimensional, color flow and Doppler transthoracic echocardiogram is performed. Summary 1. Complete two-dimensional, color flow and Doppler transthoracic echocardiogram is performed. 2. Modest left ventricular enlargement with mild systolic dysfunction. 3. Dilated left atrium. 4. No significant valvular dysfunction. 5. Pacemaker lead noted. Left Ventricle Left ventricular chamber dimension is mildly enlarged. Left ventricular systolic function is mildly reduced, estimated at 40-45%. The left ventricular diastolic function is normal. Right Ventricle Right ventricular chamber dimension is normal. Linear artifact in right ventricle suggestive of catheter(s), pacemaker lead(s), or ICD lead(s). Left Atria Left atrial chamber dimension is moderately enlarged. Right Atria Right atrial chamber dimension is mildly enlarged. Aortic Valve The aortic valve is trileaflet. There is mild aortic valve sclerosis. Pulmonic Valve The pulmonic valve is normal. Mitral Valve The mitral valve has normal leaflets. There is trace mitral valve regurgitation. Tricuspid Valve The tricuspid valve leaflets are not well visualized. There is trace tricuspid valve regurgitation. Pericardium/Pleural The pericardium appears normal. Aorta The aortic root size at the sinus of Valsalva is normal. Left Ventricular Outflow Tract Name Value Normal LVOT 2D LVOT Diameter 2.0 cm LVOT Doppler LVOT Peak Gradient 4 mmHg LVOT Mean Gradient 3 mmHg LVOT VTI 23 cm LVOT VTI/AV VTI Ratio 0.7 LVOT Stroke Volume 75 ml LVOT CO 15.9 l/min LVOT CI 7.2 l/min/m2 Pulmonic Valve Name Value Normal PV Doppler PV Peak Gradient 4 mmHg Mitral Valve Name Value Normal MV Doppler MV Decel Cotton 442 cm/s2 MV PH
[2022-10-04 06:06] LABS: Basophils Absolute Auto 0.1 K/mm3 (0.0-0.1); Basophils Percent Auto 1.2 % (0.2-1.2); Eosinophils Absolute Auto 0.2 K/mm3 (0-0.3); Eosinophils Percent Auto 3.4 % (0-4.4); Immature Granulocyte Absolute 0.08 K/mm3 (0.00-0.031); Immature Granulocyte Percent A 1.3 % (0-0.5); Lymphocytes Absolute Auto 1.16 K/mm3 (0.9-3.2); Lymphocytes Percent Auto 19.5 % (18.3-44.2); Mean Corpuscular HGB Conc 25.9 g/dl (32-36); Mean Corpuscular Hemoglobin 18.4 pg (26-34); Mean Corpuscular Volume 70.9 fl (80-100); Monocytes Absolute Auto 0.6 K/mm3 (0.1-0.6); Monocytes Percent Auto 10.8 % (2.6-8.5); Neutrophils Absolute Auto 3.8 K/mm3 (1.3-6.7); Neutrophils Percent Auto 63.8 % (45.5-73.1); Nucleated Red Blood Cells Perc 0.7 % (0.0-0.2); Platelet Count Result 160 k/mm3 (150-375); Red Blood Count 3.81 M/mm3 (4.2-5.4); Red Cell Distribution Width 25.3 % (11.5-14.5)
[2022-10-04 06:13] LABS: Alanine Aminotransferase 10 U/L (6-35); Albumin Level 3.8 g/dL (3.5-5.1); Alkaline Phosphatase 43 U/L (38-126); Anion Gap 4 mmol/L (8-16); Aspartate Amino Transferase 16 U/L (14-36); Bilirubin,Total 1.8 mg/dL (0.2-1.3); Blood Urea Nitrogen 14 mg/dL (7-17); Calcium 8.3 mg/dL (8.4-10.2); Carbon Dioxide 29 mmol/L (22-30); Chloride 103 mmol/L (98-107); Estimated CRCL calculation 91 ml/min; Estimated Glomerular Filt Rate > 60; Glucose 97 mg/dL (65-110); Potassium 3.1 mmol/L (3.4-5.0); Sodium 136 mmol/L (137-145)
[2022-10-04 07:36] LABS: Hemoglobin A1C 5.5 % (<5.7)
[2022-10-04 08:20] LABS: NT Pro B Type Natriuretic Pept 463 pg/mL (19.9-100)
[2022-10-04 08:21] LABS: Glucose Point of Care 115 mg/dl (65-105)
[2022-10-04] MEDS: SERTRALINE HCL 25 MG TABLET PO (08:25)
[2022-10-04] MEDS: CHOLECALCIFEROL 1,000 UNITS TABLET 2000 UNITS PO (08:25)
[2022-10-04] MEDS: PANTOPRAZOLE SOD SESQUIHYDRATE 20 MG TAB PO (08:25)
[2022-10-04] MEDS: DOCUSATE SODIUM 100 MG CAPSULE PO ×2 (08:25→17:27)
[2022-10-04] MEDS: MULTIVITAMINS THERAPEUTIC TAB (*BKC) 1 TABLET PO (08:25)
[2022-10-04] MEDS: FUROSEMIDE 20 MG TABLET PO (08:25)
[2022-10-04] MEDS: ATORVASTATIN 20 MG TABLET PO (08:25)
[2022-10-04] MEDS: MAGNESIUM OXIDE 400 MG TABLET PO (08:26)
[2022-10-04] MEDS: LOSARTAN POTASSIUM 25 MG TABLET PO (08:26)
[2022-10-04] MEDS: AMIODARONE HCL 100 MG TABLET PO (08:26)
[2022-10-04] MEDS: GABAPENTIN 100 MG CAPSULE PO ×3 (08:26→17:27)
[2022-10-04] MEDS: METOPROLOL TARTRATE 12.5 MG TABLET PO ×2 (08:26→20:11)
[2022-10-04 09:45] LABS: Hypochromasia 2+ (NORMAL); Platelet Estimate Adequate (Adequate)
[2022-10-04 09:46] LABS: Anisocytosis 2+ (NORMAL); Ovalocytes 1+ (NORMAL); Poikilocytosis 1+ (NORMAL); Schistocytes None Seen (NORMAL)
[2022-10-04] MEDS: SODIUM CHLORIDE 0.9% IV 250 ML 30 ML IV CONT (10:25)
--- NOTE | 2022-10-04 11:00 | PM.IMPN ---
Progress Note: A&P Assessment and Plan (1) Symptomatic anemia: Code(s): D64.9 - Anemia, unspecified Status: Acute Assessment and Plan: H/H 4.4/20.2 at time of admission Current H/H 7.0/27.0 2 Units of PRBC given Continue to trend H/H Anemia labs when stable transfuse if Hgb <7.0 (2) GI bleed: Code(s): K92.2 - Gastrointestinal hemorrhage, unspecified Status: Acute Assessment and Plan: H/H 4.4/20.2 upon arrival, currently 7.0/27.0 Received 2 units of PRBC 10/03/22 Give one unit of PRBC 10/04/22 Occult blood positive GI consulted thank you for your help Continue with H/H trends Q6H Transfuse as indicated (3) CHF (congestive heart failure): Qualifiers: Heart failure chronicity: acute Heart failure type: unspecified Qualified Code(s): I50.9 - Heart failure, unspecified Code(s): I50.9 - Heart failure, unspecified Status: Acute Assessment and Plan: Just seen by cardiology instructed to increase lasix to 40mg PO daily for the next 3 days 2 units of PRBC given 10/03/22, and 1 unit 10/04/22 Chest xray does not show any pulmonary edema BNP 463 Will likely need 40mg IV lasix Past echos appear to show a combined systolic and diastolic heart failure Continue losartan and metoprolol Echo ordered (4) HTN (hypertension): Qualifiers: Hypertension type: essential hypertension Qualified Code(s): I10 - Essential (primary) hypertension Code(s): I10 - Essential (primary) hypertension Status: Chronic Assessment and Plan: Current BP is 129/49 continue with metoprolol and losartan Trend BP as the anemia, GI bleed will affect causing hypotension Adjust medications as indicated (5) Type 2 diabetes mellitus with hyperglycemia: Qualifiers: Diabetes mellitus usp insulin use: without long chain quiller tender use Qualified Code(s): E11.65 - Type 2 diabetes mellitus with hyperglycemia Code(s): E11.65 - Type 2 diabetes mellitus with hyperglycemia Status: Chronic Assessment and Plan: Glucose is 97 A1c 5.5 Continue Lantus 40 units ISS Accu checks AC/HS Hold metformin Hypoglycemia protocol (6) Hypothyroidism (acquired): Code(s): E03.9 - Hypothyroidism, unspecified Status: Chronic Assessment and Plan: TSH in the am Continue levothyroxine 112mcg (7) Neuropathy: Code(s): G62.9 - Polyneuropathy, unspecified Status: Acute Assessment and Plan: continue with gabapentin (8) COPD (chronic obstructive pulmonary disease): Qualifiers: COPD type: unspecified COPD Qualified Code(s): J44.9 - Chronic obstructive pulmonary disease, unspecified Code(s): J44.9 - Chronic obstructive pulmonary disease, unspecified Status: Acute Assessment and Plan: continue with albuterol inhaler (9) HLD (hyperlipidemia): Qualifiers: Hyperlipidemia type: mixed hyperlipidemia Qualified Code(s): E78.2 - Mixed hyperlipidemia Code(s): E78.5 - Hyperlipidemia, unspecified Status: Chronic Assessment and Plan: Continue with atorvastatin (10) RUQ abdominal pain: Code(s): R10.11 - Right upper quadrant pain Status: Acute Assessment and Plan: Started after seeing a chiropractor Get ultrasound as it is tender to palpation Does feel like there is a mass or a lump in there Continue to trend Pain medications ordered Time Spent With Patient Time: 63 minutes Time with patient: Greater than 35 minutes Subjective Date/time seen: 10/04/22 1100 Interval history: 10/04/22 1100 patient stated that she was feeling lot better. She denies any chest pain, shortness a breath, nausea, vomiting, diarrhea or constipation. She did st
--- NOTE | 2022-10-04 11:00 | P.PNIM_ITS ---
Progress Note: A&P Assessment and Plan (1) Symptomatic anemia: Code(s): D64.9 - Anemia, unspecified Status: Acute Assessment and Plan: * H/H 4.4/20.2 at time of admission * Current H/H 7.0/27.0 * 2 Units of PRBC given * Continue to trend H/H * Anemia labs when stable * transfuse if Hgb <7.0 (2) GI bleed: Code(s): K92.2 - Gastrointestinal hemorrhage, unspecified Status: Acute Assessment and Plan: * H/H 4.4/20.2 upon arrival, currently 7.0/27.0 * Received 2 units of PRBC 10/03/22 * Give one unit of PRBC 10/04/22 * Occult blood positive * GI consulted thank you for your help * Continue with H/H trends Q6H * Transfuse as indicated (3) CHF (congestive heart failure): Qualifiers: Heart failure chronicity: acute Heart failure type: unspecified Qualified Code(s): I50.9 - Heart failure, unspecified Code(s): I50.9 - Heart failure, unspecified Status: Acute Assessment and Plan: * Just seen by cardiology instructed to increase lasix to 40mg PO daily for the next 3 days * 2 units of PRBC given 10/03/22, and 1 unit 10/04/22 * Chest xray does not show any pulmonary edema * BNP 463 * Will likely need 40mg IV lasix * Past echos appear to show a combined systolic and diastolic heart failure * Continue losartan and metoprolol * Echo ordered (4) HTN (hypertension): Qualifiers: Hypertension type: essential hypertension Qualified Code(s): I10 - Essential (primary) hypertension Code(s): I10 - Essential (primary) hypertension Status: Chronic Assessment and Plan: * Current BP is 129/49 * continue with metoprolol and losartan * Trend BP as the anemia, GI bleed will affect causing hypotension * Adjust medications as indicated (5) Type 2 diabetes mellitus with hyperglycemia: Qualifiers: Diabetes mellitus terminal operations manager insulin use: without nursing home use Qualified Code(s): E11.65 - Type 2 diabetes mellitus with hyperglycemia Code(s): E11.65 - Type 2 diabetes mellitus with hyperglycemia Status: Chronic Assessment and Plan: * Glucose is 97 * A1c 5.5 * Continue Lantus 40 units * ISS * Accu checks AC/HS * Hold metformin * Hypoglycemia protocol (6) Hypothyroidism (acquired): Code(s): E03.9 - Hypothyroidism, unspecified Status: Chronic Assessment and Plan: * TSH in the am * Continue levothyroxine 112mcg (7) Neuropathy: Code(s): G62.9 - Polyneuropathy, unspecified Status: Acute Assessment and Plan: * continue with gabapentin (8) COPD (chronic obstructive pulmonary disease): Qualifiers: COPD type: unspecified COPD Qualified Code(s): J44.9 - Chronic obstructive pulmonary disease, unspecified Code(s): J44.9 - Chronic obstructive pulmonary disease, unspecified Status: Acute Assessment and Plan: * continue with albuterol inhaler (9) HLD (hyperlipidemia): Qualifiers: Hyperlipidemia type: mixed hyperlipidemia Qualified Code(s): E78.2 - Mixed hyperlipidemia Code(s): E78.5 - Hyperlipidemia, unspecified Status: Chronic Assessment and Plan: * Cont
[2022-10-04 12:09] LABS: Glucose Point of Care 160 mg/dl (65-105)
[2022-10-04] MEDS: FUROSEMIDE INJ 40 MG/4 ML VIAL IV PUSH (14:05)
[2022-10-04] MEDS: POTASSIUM CHLORIDE 20 MEQ TABLET 40 MEQ PO (14:05)
[2022-10-04] MEDS: POTASSIUM CHLORIDE INJ 40 MEQ in SODIUM CHLORIDE 0.9% IV 500 ML 100 MEQ IVPB (14:05)
[2022-10-04 14:59] LABS: Hematocrit 33.4 % (37.0-47.0); Hemoglobin 9.1 g/dL (12.0-15.0)
[2022-10-04 16:27] LABS: IFOB Positive Control Positive; Immunochemical Fecal Occult Bl Negative (N)
--- NOTE | 2022-10-04 16:56 | WPDGICN ---
Assessment and Plan Assessment and plan (1) Symptomatic anemia: Code(s): D64.9 - Anemia, unspecified Status: Acute Assessment and Plan: we will investigate with egd and colonoscopy on Thursday no overt gib s/p blood transfusion and already doing better (2) Type 2 diabetes mellitus with hyperglycemia: Qualifiers: Diabetes mellitus adjunct faculty for medical terminology insulin use: without adjunct faculty for medical terminology use Qualified Code(s): E11.65 - Type 2 diabetes mellitus with hyperglycemia Code(s): E11.65 - Type 2 diabetes mellitus with hyperglycemia Status: Chronic Assessment and Plan: on meds (3) CHF (congestive heart failure): Qualifiers: Heart failure type: unspecified Heart failure chronicity: acute Qualified Code(s): I50.9 - Heart failure, unspecified Code(s): I50.9 - Heart failure, unspecified Status: Acute Assessment and Plan: due to anemia but now improved after blood transfusion (4) HTN (hypertension): Qualifiers: Hypertension type: essential hypertension Qualified Code(s): I10 - Essential (primary) hypertension Code(s): I10 - Essential (primary) hypertension Status: Chronic (5) Atrial fibrillation status post cardioversion: Code(s): I48.91 - Unspecified atrial fibrillation Status: Acute Assessment and Plan: not longer on blood thinner just aspirin GI Consult Note Consult date/time: 10/04/22 16:56 Reason for consult: EMILY HPI: Karly Jon is a 66 year old female with history of Afib s/p watchman procedure not longer on blood thinner only aspirin (he had blood transfusion in the past after had brain bleed about 2 years ago then?when had watchman procedure). She came to the emergency room after noted worsening dyspnea on exertion and generalized weakness for last several days, she thought that could have CHF exacerbation. Blood work showed H&H was found to be 4.6 and 21.5 and received blood transfusion, now feeling much better. Denies overt gib, last colonoscopy 15 years ago and about 6 years ago had negative stool card .? Denies weight loss, abdominal pain or nausea. Review of Systems Review of Systems: Gen.: Denies fevers or chills, + weakness ENT: Denies congestion Respiratory: Reports shortness of breath with exertion CV: Denies chest pain GI: Denies abdominal pain nausea, emesis or diarrhea Musculoskeletal: Denies back pain Neuro: Denies numbness Skin: Denies rash Psych: no anxiety Except as documented, all other systems reviewed and negative [facility] Past Medical History Medical History (Updated 10/04/22 @ 17:01 by Alok Barnes MD) Anemia Arthritis Atrial fibrillation status post cardioversion Atrial fibrillation with rapid ventricular response BMI 37.0-37.9, adult Breast cancer CHF (congestive heart failure) COPD (chronic obstructive pulmonary disease) Depression H/O malignant neoplasm of breast H/O thyroid disease Hyperlipidemia associated with type 2 diabetes mellitus Hypertension Hypothyroidism (acquired) Left thyroid nodule Treated with radioactive therapy Neuropathy Obesity Obstructive sleep apnea (~06/2020) She does not use a CPAP Post-menopausal Presence of Watchman left atrial appendage closure device Subarachnoid hemorrhage Subdural hematoma Thyroid mass of unclear etiology Type 2 diabetes mellitus Urinary retention UTI (urinary tract infection) Vitamin D deficiency Surgical History Surgical History (Updated 10/04/22 @ 08:09 by Filemon Jarrell APN-Lance) Brain bleed Surgery to stop brain bleed. 01/26/21 H/O craniotomy H/O lumpectomy right breast, 05/2009 H/O tubal ligation 06/1978 History of hip replacement right, 05/2017 Presence of right artificial hip joint S/P total hip arthroplasty Status post craniotomy Family History Family History Father , 55 Type 2 diabetes mellitus with diabetic neuropathy
[2022-10-04 17:22] LABS: Glucose Point of Care 125 mg/dl (65-105)
[2022-10-04] MEDS: INSULIN GLARGINE (*BKC) 100 UNITS/ML 40 UNITS SUB-Q (17:27)
[2022-10-04 18:44] LABS: Hematocrit 33.9 % (37.0-47.0); Hemoglobin 9.2 g/dL (12.0-15.0)
[2022-10-04] MEDS: LEVOTHYROXINE SODIUM 112 MCG TABLET PO (20:11)
--- NOTE | 2022-10-04 20:13 | PC.NURSE ---
2012 PT REQUESTED SHE TAKE HER SYNTHROID AT NIGHTTIME STATES THIS IS WHAT SHE DOES AT HOME WITH INSTRUCTIONS FROM HER DR. GAVE 0630 DOSE AT 2011
[2022-10-04 20:46] LABS: Glucose Point of Care 165 mg/dl (65-105)
[2022-10-05] VITALS (13 sets, daily range): BP systolic 121–137; BP diastolic 53–66; PULSE 60–73; RESP 16–18; TEMP 36.1–36.6; O2SAT 95–100
[2022-10-05 00:56] LABS: Hematocrit 31.8 % (37.0-47.0); Hemoglobin 8.5 g/dL (12.0-15.0)
[2022-10-05 04:52] LABS: Basophils Percent Auto 0.6 % (0.2-1.2); Eosinophils Absolute Auto 0.2 K/mm3 (0-0.3); Eosinophils Percent Auto 3.5 % (0-4.4); Hemoglobin 8.5 g/dL (12.0-15.0); Immature Granulocyte Absolute 0.04 K/mm3 (0.00-0.031); Immature Granulocyte Percent A 0.6 % (0-0.5); Immature Platelet Fraction Pct 9.3 % (0.9-11.2); Lymphocytes Absolute Auto 1.47 K/mm3 (0.9-3.2); Lymphocytes Percent Auto 21.3 % (18.3-44.2); Mean Corpuscular HGB Conc 26.6 g/dl (32-36); Mean Corpuscular Hemoglobin 19.1 pg (26-34); Mean Corpuscular Volume 71.9 fl (80-100); Monocytes Absolute Auto 0.7 K/mm3 (0.1-0.6); Monocytes Percent Auto 10.3 % (2.6-8.5); Neutrophils Absolute Auto 4.4 K/mm3 (1.3-6.7); Neutrophils Percent Auto 63.7 % (45.5-73.1); Nucleated Red Blood Cells Perc 0.4 % (0.0-0.2); Platelet Count Result 152 k/mm3 (150-375); Red Blood Count 4.45 M/mm3 (4.2-5.4); Red Cell Distribution Width 25.6 % (11.5-14.5); White Blood Count 6.9 K/mm3 (4.5-10.0)
[2022-10-05 05:06] LABS: Alanine Aminotransferase 10 U/L (6-35); Albumin Level 3.6 g/dL (3.5-5.1); Alkaline Phosphatase 42 U/L (38-126); Anion Gap 7 mmol/L (8-16); Aspartate Amino Transferase 15 U/L (14-36); Bilirubin,Total 2.3 mg/dL (0.2-1.3); Blood Urea Nitrogen 16 mg/dL (7-17); Calcium 8.4 mg/dL (8.4-10.2); Carbon Dioxide 27 mmol/L (22-30); Chloride 107 mmol/L (98-107); Estimated CRCL calculation 79 ml/min; Estimated Glomerular Filt Rate > 60; Glucose 122 mg/dL (65-110); Magnesium 1.8 mg/dL (1.6-2.3); Potassium 3.8 mmol/L (3.4-5.0); Sodium 141 mmol/L (137-145)
[2022-10-05 05:20] LABS: Platelet Estimate Adequate (Adequate)
[2022-10-05 05:21] LABS: Hypochromasia 1+ (NORMAL)
[2022-10-05 05:22] LABS: Poikilocytosis 2+ (NORMAL)
[2022-10-05 05:23] LABS: Microcytosis 1+ (NORMAL)
[2022-10-05 08:39] LABS: Glucose Point of Care 146 mg/dl (65-105)
[2022-10-05] MEDS: GABAPENTIN 100 MG CAPSULE PO ×3 (09:44→16:35)
[2022-10-05] MEDS: MAGNESIUM OXIDE 400 MG TABLET PO (09:44)
[2022-10-05] MEDS: CHOLECALCIFEROL 1,000 UNITS TABLET 2000 UNITS PO (09:44)
[2022-10-05] MEDS: LOSARTAN POTASSIUM 25 MG TABLET PO (09:44)
[2022-10-05] MEDS: PANTOPRAZOLE SOD SESQUIHYDRATE 20 MG TAB PO (09:44)
[2022-10-05] MEDS: ATORVASTATIN 20 MG TABLET PO (09:44)
[2022-10-05] MEDS: MULTIVITAMINS THERAPEUTIC TAB (*BKC) 1 TABLET PO (09:44)
[2022-10-05] MEDS: AMIODARONE HCL 100 MG TABLET PO (09:44)
[2022-10-05] MEDS: METOPROLOL TARTRATE 12.5 MG TABLET PO ×2 (09:44→20:33)
[2022-10-05] MEDS: FUROSEMIDE 20 MG TABLET PO (09:44)
[2022-10-05] MEDS: SERTRALINE HCL 25 MG TABLET PO (09:44)
[2022-10-05] MEDS: DOCUSATE SODIUM 100 MG CAPSULE PO ×2 (09:44→16:35)
[2022-10-05 11:51] LABS: Glucose Point of Care 186 mg/dl (65-105)
--- NOTE | 2022-10-05 14:00 | PM.IMPN ---
Progress Note: A&P Assessment and Plan (1) Symptomatic anemia: Code(s): D64.9 - Anemia, unspecified Status: Acute Assessment and Plan: H/H 4.4/20.2 at time of admission Current H/H 8.5/32.0 2 Units of PRBC given 10/03/22, 1 unit given 10/04/22 Continue to trend H/H Anemia labs when stable transfuse if Hgb <7.0 (2) GI bleed: Code(s): K92.2 - Gastrointestinal hemorrhage, unspecified Status: Acute Assessment and Plan: H/H 4.4/20.2 upon arrival, currently 8.5/32.0 Received 2 units of PRBC 10/03/22 Give one unit of PRBC 10/04/22 Occult blood positive GI consulted thank you for your help EGD/Colonoscopy planned for Thursday10/06/22 Transfuse as indicated (3) CHF (congestive heart failure): Qualifiers: Heart failure chronicity: acute Heart failure type: unspecified Qualified Code(s): I50.9 - Heart failure, unspecified Code(s): I50.9 - Heart failure, unspecified Status: Acute Assessment and Plan: Just seen by cardiology instructed to increase lasix to 40mg PO daily for the next 3 days Chronic systolic heart failure not in acute exacerbation 2 units of PRBC given 10/03/22, and 1 unit 10/04/22 Chest xray does not show any pulmonary edema BNP 463 40mg IV lasix give one time Echo from 10/04/22 EF of 40-45% with normal diastolic dysfunction Continue losartan and metoprolol (4) HTN (hypertension): Qualifiers: Hypertension type: essential hypertension Qualified Code(s): I10 - Essential (primary) hypertension Code(s): I10 - Essential (primary) hypertension Status: Chronic Assessment and Plan: Current BP is 133/61 continue with metoprolol and losartan Trend BP as the anemia, GI bleed will affect causing hypotension Adjust medications as indicated (5) Type 2 diabetes mellitus with hyperglycemia: Qualifiers: Diabetes mellitus vermin exterminator insulin use: without vermin exterminator use Qualified Code(s): E11.65 - Type 2 diabetes mellitus with hyperglycemia Code(s): E11.65 - Type 2 diabetes mellitus with hyperglycemia Status: Chronic Assessment and Plan: Glucose is 122 A1c 5.5 Continue Lantus 40 units ISS Accu checks AC/HS Hold metformin Hypoglycemia protocol (6) Hypothyroidism (acquired): Code(s): E03.9 - Hypothyroidism, unspecified Status: Chronic Assessment and Plan: TSH 2.340 Continue levothyroxine 112mcg (7) Neuropathy: Code(s): G62.9 - Polyneuropathy, unspecified Status: Acute Assessment and Plan: continue with gabapentin (8) COPD (chronic obstructive pulmonary disease): Qualifiers: COPD type: unspecified COPD Qualified Code(s): J44.9 - Chronic obstructive pulmonary disease, unspecified Code(s): J44.9 - Chronic obstructive pulmonary disease, unspecified Status: Acute Assessment and Plan: continue with albuterol inhaler (9) HLD (hyperlipidemia): Qualifiers: Hyperlipidemia type: mixed hyperlipidemia Qualified Code(s): E78.2 - Mixed hyperlipidemia Code(s): E78.5 - Hyperlipidemia, unspecified Status: Chronic Assessment and Plan: Continue with atorvastatin (10) RUQ abdominal pain: Code(s): R10.11 - Right upper quadrant pain Status: Acute Assessment and Plan: Started after seeing a chiropractor ultrasound negative for any acute findings Does feel like there is a mass or a lump in there Continue to trend Pain medications ordered Time Spent With Patient Time: ? MEDICAL DECISION MAKING NARRATIVE ? History obtained from: Patient ? History from independent sources: ? External chart review: GI notes, previous echo, previous labs ? New problems addressed: CHF, new abdominal
--- NOTE | 2022-10-05 14:00 | P.PNIM_ITS ---
Progress Note: A&P Assessment and Plan (1) Symptomatic anemia: Code(s): D64.9 - Anemia, unspecified Status: Acute Assessment and Plan: * H/H 4.4/20.2 at time of admission * Current H/H 8.5/32.0 * 2 Units of PRBC given 10/03/22, 1 unit given 10/04/22 * Continue to trend H/H * Anemia labs when stable * transfuse if Hgb <7.0 (2) GI bleed: Code(s): K92.2 - Gastrointestinal hemorrhage, unspecified Status: Acute Assessment and Plan: * H/H 4.4/20.2 upon arrival, currently 8.5/32.0 * Received 2 units of PRBC 10/03/22 * Give one unit of PRBC 10/04/22 * Occult blood positive * GI consulted thank you for your help * EGD/Colonoscopy planned for Thursday10/06/22 * Transfuse as indicated (3) CHF (congestive heart failure): Qualifiers: Heart failure chronicity: acute Heart failure type: unspecified Qualified Code(s): I50.9 - Heart failure, unspecified Code(s): I50.9 - Heart failure, unspecified Status: Acute Assessment and Plan: * Just seen by cardiology instructed to increase lasix to 40mg PO daily for the next 3 days * Chronic systolic heart failure not in acute exacerbation * 2 units of PRBC given 10/03/22, and 1 unit 10/04/22 * Chest xray does not show any pulmonary edema * BNP 463 * 40mg IV lasix give one time * Echo from 10/04/22 EF of 40-45% with normal diastolic dysfunction * Continue losartan and metoprolol (4) HTN (hypertension): Qualifiers: Hypertension type: essential hypertension Qualified Code(s): I10 - Essential (primary) hypertension Code(s): I10 - Essential (primary) hypertension Status: Chronic Assessment and Plan: * Current BP is 133/61 * continue with metoprolol and losartan * Trend BP as the anemia, GI bleed will affect causing hypotension * Adjust medications as indicated (5) Type 2 diabetes mellitus with hyperglycemia: Qualifiers: Diabetes mellitus residential insulin use: without lining stamper use Qualified Code(s): E11.65 - Type 2 diabetes mellitus with hyperglycemia Code(s): E11.65 - Type 2 diabetes mellitus with hyperglycemia Status: Chronic Assessment and Plan: * Glucose is 122 * A1c 5.5 * Continue Lantus 40 units * ISS * Accu checks AC/HS * Hold metformin * Hypoglycemia protocol (6) Hypothyroidism (acquired): Code(s): E03.9 - Hypothyroidism, unspecified Status: Chronic Assessment and Plan: * TSH 2.340 * Continue levothyroxine 112mcg (7) Neuropathy: Code(s): G62.9 - Polyneuropathy, unspecified Status: Acute Assessment and Plan: * continue with gabapentin (8) COPD (chronic obstructive pulmonary disease): Qualifiers: COPD type: unspecified COPD Qualified Code(s): J44.9 - Chronic obstructive pulmonary disease, unspecified Code(s): J44.9 - Chronic obstructive pulmonary disease, unspecified Status: Acute Assessment and Plan: * continue with albuterol inhaler (9) HLD (hyperlipidemia): Qualifiers: Hyperlipidemia type: mixed hyperlipidemia Qualified Code(s): E78.2 - Mixed hyperlipidemia Code(s): E78.5 - Hyperlipidemia, unsp
[2022-10-05] MEDS: BISACODYL 5 MG TABLET EC 20 MG PO (16:35)
[2022-10-05] MEDS: polyethylene glycoL 3350 238 GM BOTTLE PO (16:36)
[2022-10-05 16:55] LABS: Glucose Point of Care 90 mg/dl (65-105)
--- NOTE | 2022-10-05 19:49 | WPDGIPROGNO ---
Progress Note: A&P Assessment and Plan (1) Symptomatic anemia: Code(s): D64.9 - Anemia, unspecified Status: Acute Assessment and Plan: egd and colonoscopy tomorrow to assess if gi blood loss (2) Type 2 diabetes mellitus with hyperglycemia: Qualifiers: Diabetes mellitus rodent exterminator insulin use: without snf use Qualified Code(s): E11.65 - Type 2 diabetes mellitus with hyperglycemia Code(s): E11.65 - Type 2 diabetes mellitus with hyperglycemia Status: Chronic Assessment and Plan: on medication (3) HTN (hypertension): Qualifiers: Hypertension type: essential hypertension Qualified Code(s): I10 - Essential (primary) hypertension Code(s): I10 - Essential (primary) hypertension Status: Chronic Assessment and Plan: controlled (4) Atrial fibrillation status post cardioversion: Code(s): I48.91 - Unspecified atrial fibrillation Status: Acute Subjective Date/time seen: 10/05/22 19:49 Interval history: doing well, just started drinking bowel prep Review of Systems Review of Systems: All systems reviewed & are unremarkable except as noted in HPI and below Exam Const: General: comfortable and no acute distress HENMT: Face/Nose/Sinus: Normal nares present Eyes: General: appearance normal, both eyes and all related structures Neck: Neck: no JVD Resp: Auscultation: clear to auscultation bilaterally Cardio: Rate: regular rate Rhythm: regular rhythm GI: Inspection: non-distended GI Palp: Yes Soft to palpation, No Tenderness to palpation present (GI) and No Guarding due to palpation present (GI) Skin: General skin exam: normal color Neuro: Speech: normal speech Motor exam (neuro): 5/5 motor strength present throughout Extrem: General: normal to inspection Psych: Mental Status: mental status grossly normal Objective Data Vital Signs Vital Signs: Vital Signs - 24 hr 10/04/22 20:11 10/04/22 20:00 10/04/22 22:15 Temperature 98.4 F Pulse Rate 78 81 Respiratory Rate 18 Blood Pressure 133/61 Pulse Oximetry 97 Oxygen Delivery Room Air 10/04/22 20:00 10/05/22 00:00 10/05/22 04:00 Temperature Pulse Rate 77 73 69 Respiratory Rate Blood Pressure Pulse Oximetry Oxygen Delivery 10/05/22 06:00 10/05/22 08:30 10/05/22 09:41 Temperature 97.3 F L 97.4 F L Pulse Rate 73 73 Respiratory Rate 18 16 Blood Pressure 126/59 L 121/53 L Pulse Oximetry 95 97 Oxygen Delivery Room Air 10/05/22 09:44 10/05/22 09:44 10/05/22 08:00 Temperature Pulse Rate 72 72 66 Respiratory Rate Blood Pressure Pulse Oximetry Oxygen Delivery 10/05/22 12:00 10/05/22 14:43 10/05/22 16:00 Temperature 96.9 F L Pulse Rate 69 60 65 Respiratory Rate 16 Blood Pressure 127/58 L Pulse Oximetry 99 Oxygen Delivery Intake/Output Intake/Output: Intake & Output 10/02/22 10/03/22 10/04/22 10/05/22 23:59 23:59 23:59 23:59 Intake Total 1190 2220 1480 Output Total 5100 2300 Balance 1190 -2880 -820 Meds/Results Medications: Active Medications Generic Name Dose Route Start Last Admin Trade Name Freq PRN Reason Stop Dose Admin Albuterol 1 puff 10/03/22 17:12 Albuterol Sulfate (*Sp) Aerosol 1 Puff INHALATION QID PRN Shortness Of Breath Amiodarone HCl 100 mg 10/04/22 09:00 10/05/22 09:44 Amiodarone Hcl 100 Mg Tablet PO 100 mg DAILY ZAID Administration Atorvastatin Calcium 20 mg 10/04/22 09:00 10/05/22 09:44 Atorvastatin 20 Mg Tablet PO 20 mg DAILY ZAID Administration Dextrose 12.5 gm 10/03/22 17:31 Dextrose 50% 25 Gm/50 Ml Syringe IV PUSH PRN PRN Hypoglycemia Protocol Docusate Sodium 100 mg 10/03/22 18:00 10/05/22 16:35 Docusate Sodium 100 Mg Capsule PO 100 mg BID ZAID Administration Furosemide 20 mg 10/04/22 09:00 10/05/22 09:44 Furosemide 20 Mg Tablet PO 20 mg DAILY SC
[2022-10-05 20:18] LABS: Glucose Point of Care 130 mg/dl (65-105)
[2022-10-06] VITALS (12 sets, daily range): BP systolic 108–128; BP diastolic 41–63; PULSE 60–87; RESP 15–20; TEMP 36.1–36.6; O2SAT 96–100
[2022-10-06 06:26] LABS: Basophils Absolute Auto 0.1 K/mm3 (0.0-0.1); Basophils Percent Auto 0.9 % (0.2-1.2); Eosinophils Absolute Auto 0.2 K/mm3 (0-0.3); Eosinophils Percent Auto 3.1 % (0-4.4); Hematocrit 33.5 % (37.0-47.0); Hemoglobin 8.7 g/dL (12.0-15.0); Immature Granulocyte Absolute 0.04 K/mm3 (0.00-0.031); Immature Granulocyte Percent A 0.5 % (0-0.5); Immature Platelet Fraction Pct 9.2 % (0.9-11.2); Lymphocytes Absolute Auto 1.27 K/mm3 (0.9-3.2); Monocytes Absolute Auto 0.6 K/mm3 (0.1-0.6); Monocytes Percent Auto 7.7 % (2.6-8.5); Neutrophils Absolute Auto 5.3 K/mm3 (1.3-6.7); Neutrophils Percent Auto 70.8 % (45.5-73.1); Nucleated Red Blood Cells Perc 0.3 % (0.0-0.2); Platelet Count Result 178 k/mm3 (150-375); Red Blood Count 4.59 M/mm3 (4.2-5.4); White Blood Count 7.5 K/mm3 (4.5-10.0)
[2022-10-06 06:28] LABS: Alanine Aminotransferase 12 U/L (6-35); Albumin Level 3.6 g/dL (3.5-5.1); Alkaline Phosphatase 47 U/L (38-126); Anion Gap 5 mmol/L (8-16); Aspartate Amino Transferase 19 U/L (14-36); Bilirubin,Total 2.2 mg/dL (0.2-1.3); Blood Urea Nitrogen 12 mg/dL (7-17); Carbon Dioxide 28 mmol/L (22-30); Chloride 107 mmol/L (98-107); Estimated CRCL calculation 91 ml/min; Estimated Glomerular Filt Rate > 60; Glucose 108 mg/dL (65-110); Magnesium 2.1 mg/dL (1.6-2.3); Potassium 4.1 mmol/L (3.4-5.0); Sodium 140 mmol/L (137-145)
[2022-10-06 07:06] LABS: Anisocytosis 3+ (NORMAL); Hypochromasia 3+ (NORMAL); Microcytosis 1+ (NORMAL); Platelet Estimate Adequate (Adequate); Schistocytes None Seen (NORMAL); Stomatocytes 1+ (NORMAL)
--- NOTE | 2022-10-06 07:21 | P.PNIM_ITS ---
Progress Note: A&P Assessment and Plan (1) Symptomatic anemia: Code(s): D64.9 - Anemia, unspecified Status: Acute Assessment and Plan: * H/H 4.4/20.2 at time of admission * Current H/H 8.7/33.5 * 2 Units of PRBC given 10/03/22, 1 unit given 10/04/22 * Continue to trend H/H * Anemia labs when stable * transfuse if Hgb <7.0 (2) GI bleed: Code(s): K92.2 - Gastrointestinal hemorrhage, unspecified Status: Acute Assessment and Plan: * H/H 4.4/20.2 upon arrival, currently 8.7/33.5 * Received 2 units of PRBC 10/03/22 * Give one unit of PRBC 10/04/22 * Occult blood positive in the ED and negative as inpatient * GI consulted thank you for your help * EGD/Colonoscopy planned for Thursday10/06/22 * Transfuse as indicated (3) CHF (congestive heart failure): Qualifiers: Heart failure type: unspecified Heart failure chronicity: acute Qualified Code(s): I50.9 - Heart failure, unspecified Code(s): I50.9 - Heart failure, unspecified Status: Acute Assessment and Plan: * Just seen by cardiology instructed to increase lasix to 40mg PO daily for the next 3 days * Chronic systolic heart failure not in acute exacerbation * 2 units of PRBC given 10/03/22, and 1 unit 10/04/22 * Chest xray does not show any pulmonary edema * BNP 463 * 40mg IV lasix give one time * Echo from 10/04/22 EF of 40-45% with normal diastolic dysfunction * Continue losartan and metoprolol (4) HTN (hypertension): Qualifiers: Hypertension type: essential hypertension Qualified Code(s): I10 - Essential (primary) hypertension Code(s): I10 - Essential (primary) hypertension Status: Chronic Assessment and Plan: * Current BP is 117/55 * continue with metoprolol and losartan * Trend BP as the anemia, GI bleed will affect causing hypotension * Adjust medications as indicated (5) Type 2 diabetes mellitus with hyperglycemia: Qualifiers: Diabetes mellitus chcf insulin use: without oil heaterman use Qualified Code(s): E11.65 - Type 2 diabetes mellitus with hyperglycemia Code(s): E11.65 - Type 2 diabetes mellitus with hyperglycemia Status: Chronic Assessment and Plan: * Glucose is 108 * A1c 5.5 * Continue Lantus 40 units, held with NPO status * ISS * Accu checks AC/HS * Hold metformin * Hypoglycemia protocol (6) Hypothyroidism (acquired): Code(s): E03.9 - Hypothyroidism, unspecified Status: Chronic Assessment and Plan: * TSH 2.340 * Continue levothyroxine 112mcg (7) Neuropathy: Code(s): G62.9 - Polyneuropathy, unspecified Status: Acute Assessment and Plan: * continue with gabapentin (8) COPD (chronic obstructive pulmonary disease): Qualifiers: COPD type: unspecified COPD Qualified Code(s): J44.9 - Chronic obstructive pulmonary disease, unspecified Code(s): J44.9 - Chronic obstructive pulmonary disease, unspecified Status: Acute Assessment and Plan: * continue with albuterol inhaler (9) HLD (hyperlipidemia): Qualifiers: Hyperlipidemia type: mixed hyperlipidemia Qualified Code(s): E78.2 - Mixed hyperlipide
--- NOTE | 2022-10-06 07:21 | PM.IMPN ---
Progress Note: A&P Assessment and Plan (1) Symptomatic anemia: Code(s): D64.9 - Anemia, unspecified Status: Acute Assessment and Plan: H/H 4.4/20.2 at time of admission Current H/H 8.7/33.5 2 Units of PRBC given 10/03/22, 1 unit given 10/04/22 Continue to trend H/H Anemia labs when stable transfuse if Hgb <7.0 (2) GI bleed: Code(s): K92.2 - Gastrointestinal hemorrhage, unspecified Status: Acute Assessment and Plan: H/H 4.4/20.2 upon arrival, currently 8.7/33.5 Received 2 units of PRBC 10/03/22 Give one unit of PRBC 10/04/22 Occult blood positive in the ED and negative as inpatient GI consulted thank you for your help EGD/Colonoscopy planned for Thursday10/06/22 Transfuse as indicated (3) CHF (congestive heart failure): Qualifiers: Heart failure type: unspecified Heart failure chronicity: acute Qualified Code(s): I50.9 - Heart failure, unspecified Code(s): I50.9 - Heart failure, unspecified Status: Acute Assessment and Plan: Just seen by cardiology instructed to increase lasix to 40mg PO daily for the next 3 days Chronic systolic heart failure not in acute exacerbation 2 units of PRBC given 10/03/22, and 1 unit 10/04/22 Chest xray does not show any pulmonary edema BNP 463 40mg IV lasix give one time Echo from 10/04/22 EF of 40-45% with normal diastolic dysfunction Continue losartan and metoprolol (4) HTN (hypertension): Qualifiers: Hypertension type: essential hypertension Qualified Code(s): I10 - Essential (primary) hypertension Code(s): I10 - Essential (primary) hypertension Status: Chronic Assessment and Plan: Current BP is 117/55 continue with metoprolol and losartan Trend BP as the anemia, GI bleed will affect causing hypotension Adjust medications as indicated (5) Type 2 diabetes mellitus with hyperglycemia: Qualifiers: Diabetes mellitus fpc insulin use: without director long term care use Qualified Code(s): E11.65 - Type 2 diabetes mellitus with hyperglycemia Code(s): E11.65 - Type 2 diabetes mellitus with hyperglycemia Status: Chronic Assessment and Plan: Glucose is 108 A1c 5.5 Continue Lantus 40 units, held with NPO status ISS Accu checks AC/HS Hold metformin Hypoglycemia protocol (6) Hypothyroidism (acquired): Code(s): E03.9 - Hypothyroidism, unspecified Status: Chronic Assessment and Plan: TSH 2.340 Continue levothyroxine 112mcg (7) Neuropathy: Code(s): G62.9 - Polyneuropathy, unspecified Status: Acute Assessment and Plan: continue with gabapentin (8) COPD (chronic obstructive pulmonary disease): Qualifiers: COPD type: unspecified COPD Qualified Code(s): J44.9 - Chronic obstructive pulmonary disease, unspecified Code(s): J44.9 - Chronic obstructive pulmonary disease, unspecified Status: Acute Assessment and Plan: continue with albuterol inhaler (9) HLD (hyperlipidemia): Qualifiers: Hyperlipidemia type: mixed hyperlipidemia Qualified Code(s): E78.2 - Mixed hyperlipidemia Code(s): E78.5 - Hyperlipidemia, unspecified Status: Chronic Assessment and Plan: Continue with atorvastatin (10) RUQ abdominal pain: Code(s): R10.11 - Right upper quadrant pain Status: Acute Assessment and Plan: Started after seeing a chiropractor ultrasound negative for any acute findings Does feel like there is a mass or a lump in there Continue to trend Pain medications ordered Time Spent With Patient Time: ? MEDICAL DECISION MAKING NARRATIVE ? History obtained from:? Patient ? History from independent sources:? ? External chart review:? GI notes ? New problems addr
[2022-10-06 08:02] LABS: Iron 21 ug/dL (37-170)
[2022-10-06 08:12] LABS: Percent Iron Saturation 5 % (20-50)
[2022-10-06 08:27] LABS: Transferrin 293 mg/dL (206-381)
[2022-10-06 08:31] LABS: Glucose Point of Care 115 mg/dl (65-105)
[2022-10-06 08:39] LABS: Ferritin 7.23 ng/mL (11.1-264)
[2022-10-06] MEDS: METOPROLOL TARTRATE 12.5 MG TABLET PO (08:57)
[2022-10-06 09:25] LABS: Folic Acid 13.5 ng/mL (2.76->20)
--- NOTE | 2022-10-06 09:45 | P.DS_ITS ---
DS: Admitting Diagnosis Discharge Date 10/06/22 0945 Admitting Diagnosis GI Bleed, anemia DS: Discharge Diagnosis Discharge Diagnosis (1) Symptomatic anemia: Code(s): D64.9 - Anemia, unspecified Status: Acute Assessment and Plan: * H/H 4.4/20.2 at time of admission * Current H/H 8.7/33.5 * 2 Units of PRBC given 10/03/22, 1 unit given 10/04/22 * Continue to trend H/H * Anemia labs when stable * transfuse if Hgb <7.0 * Start iron (2) GI bleed: Code(s): K92.2 - Gastrointestinal hemorrhage, unspecified Status: Acute Assessment and Plan: * H/H 4.4/20.2 upon arrival, currently 8.7/33.5 * Received 2 units of PRBC 10/03/22 * Give one unit of PRBC 10/04/22 * Occult blood positive in the ED and negative as inpatient * GI consulted thank you for your help * 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 * Transfuse as indicated (3) CHF (congestive heart failure): Qualifiers: Heart failure chronicity: acute Heart failure type: unspecified Qualified Code(s): I50.9 - Heart failure, unspecified Code(s): I50.9 - Heart failure, unspecified Status: Acute Assessment and Plan: * Just seen by cardiology instructed to increase lasix to 40mg PO daily for the next 3 days * Chronic systolic heart failure not in acute exacerbation * 2 units of PRBC given 10/03/22, and 1 unit 10/04/22 * Chest xray does not show any pulmonary edema * BNP 463 * 40mg IV lasix give one time * Echo from 10/04/22 EF of 40-45% with normal diastolic dysfunction * Continue losartan and metoprolol (4) HTN (hypertension): Qualifiers: Hypertension type: essential hypertension Qualified Code(s): I10 - Essential (primary) hypertension Code(s): I10 - Essential (primary) hypertension Status: Chronic Assessment and Plan: * Current BP is 117/55 * continue with metoprolol and losartan * Trend BP as the anemia, GI bleed will affect causing hypotension * Adjust medications as indicated (5) Type 2 diabetes mellitus with hyperglycemia: Qualifiers: Diabetes mellitus prison insulin use: without ocean transportation intermediary use Qualified Code(s): E11.65 - Type 2 diabetes mellitus with hyperglycemia Code(s): E11.65 - Type 2 diabetes mellitus with hyperglycemia Status: Chronic Assessment and Plan: * Glucose is 108 * A1c 5.5 * Continue Lantus 40 units, held with NPO status * ISS * Accu checks AC/HS * Hold metformin * Hypoglycemia protocol (6) Hypothyroidism (acquired): Code(s): E03.9 - Hypothyroidism, unspecified Status: Chronic Assessment and Plan: * TSH 2.340 * Continue levothyroxine 112mcg (7) Neuropathy: Code(s): G62.9 - Polyneuropathy, unspecified Status: Acute Assessment and Plan: * continue with gabapentin (8) COPD (chronic obstructive pulmonary disease): Qualifiers: COPD type: unspecified COPD Qualified Code(s): J44.9 - Chronic obstructive pulmonary disease, unspecified Code(s): J44.9 - Chronic obstructive pulmonary disease, unspecified Status: Acute Assessment and Plan: * continue with albuterol inhaler
--- NOTE | 2022-10-06 09:45 | PM.DS ---
DS: Admitting Diagnosis Discharge Date 10/06/22 0945 Admitting Diagnosis GI Bleed, anemia DS: Discharge Diagnosis Discharge Diagnosis (1) Symptomatic anemia: Code(s): D64.9 - Anemia, unspecified Status: Acute Assessment and Plan: H/H 4.4/20.2 at time of admission Current H/H 8.7/33.5 2 Units of PRBC given 10/03/22, 1 unit given 10/04/22 Continue to trend H/H Anemia labs when stable transfuse if Hgb <7.0 Start iron (2) GI bleed: Code(s): K92.2 - Gastrointestinal hemorrhage, unspecified Status: Acute Assessment and Plan: H/H 4.4/20.2 upon arrival, currently 8.7/33.5 Received 2 units of PRBC 10/03/22 Give one unit of PRBC 10/04/22 Occult blood positive in the ED and negative as inpatient GI consulted thank you for your help 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 Transfuse as indicated (3) CHF (congestive heart failure): Qualifiers: Heart failure chronicity: acute Heart failure type: unspecified Qualified Code(s): I50.9 - Heart failure, unspecified Code(s): I50.9 - Heart failure, unspecified Status: Acute Assessment and Plan: Just seen by cardiology instructed to increase lasix to 40mg PO daily for the next 3 days Chronic systolic heart failure not in acute exacerbation 2 units of PRBC given 10/03/22, and 1 unit 10/04/22 Chest xray does not show any pulmonary edema BNP 463 40mg IV lasix give one time Echo from 10/04/22 EF of 40-45% with normal diastolic dysfunction Continue losartan and metoprolol (4) HTN (hypertension): Qualifiers: Hypertension type: essential hypertension Qualified Code(s): I10 - Essential (primary) hypertension Code(s): I10 - Essential (primary) hypertension Status: Chronic Assessment and Plan: Current BP is 117/55 continue with metoprolol and losartan Trend BP as the anemia, GI bleed will affect causing hypotension Adjust medications as indicated (5) Type 2 diabetes mellitus with hyperglycemia: Qualifiers: Diabetes mellitus roasterman insulin use: without roasterman use Qualified Code(s): E11.65 - Type 2 diabetes mellitus with hyperglycemia Code(s): E11.65 - Type 2 diabetes mellitus with hyperglycemia Status: Chronic Assessment and Plan: Glucose is 108 A1c 5.5 Continue Lantus 40 units, held with NPO status ISS Accu checks AC/HS Hold metformin Hypoglycemia protocol (6) Hypothyroidism (acquired): Code(s): E03.9 - Hypothyroidism, unspecified Status: Chronic Assessment and Plan: TSH 2.340 Continue levothyroxine 112mcg (7) Neuropathy: Code(s): G62.9 - Polyneuropathy, unspecified Status: Acute Assessment and Plan: continue with gabapentin (8) COPD (chronic obstructive pulmonary disease): Qualifiers: COPD type: unspecified COPD Qualified Code(s): J44.9 - Chronic obstructive pulmonary disease, unspecified Code(s): J44.9 - Chronic obstructive pulmonary disease, unspecified Status: Acute Assessment and Plan: continue with albuterol inhaler (9) HLD (hyperlipidemia): Qualifiers: Hyperlipidemia type: mixed hyperlipidemia Qualified Code(s): E78.2 - Mixed hyperlipidemia Code(s): E78.5 - Hyperlipidemia, unspecified Status: Chronic Assessment and Plan: Continue with atorvastatin (10) RUQ abdominal pain: Code(s): R10.11 - Right upper quadrant pain Status: Acute Assessment and Plan: Started after seeing a chiropractor ultrasound negative for any acute findings Does feel like there is a mass or a lump in there Continue to trend Pain medications ordered DS: Summary Hospital Course Hospital Course: Patient is 66-
[2022-10-06 11:50] LABS: Glucose Point of Care 125 mg/dl (65-105)
[2022-10-06] MEDS: LACTATED RINGERS 1,000 ML 150 ML IV CONT (11:55)
--- NOTE | 2022-10-06 12:35 | SUR.OPER ---
EGD START 1209, END 1217 COLONOSCOPY START 1223, END 1234
[2022-10-06] MEDS: FUROSEMIDE 20 MG TABLET PO (13:55)
[2022-10-06] MEDS: LOSARTAN POTASSIUM 25 MG TABLET PO (13:55)
[2022-10-06] MEDS: CHOLECALCIFEROL 1,000 UNITS TABLET 2000 UNITS PO (13:55)
[2022-10-06] MEDS: ATORVASTATIN 20 MG TABLET PO (13:55)
[2022-10-06] MEDS: AMIODARONE HCL 100 MG TABLET PO (13:55)
[2022-10-06] MEDS: MAGNESIUM OXIDE 400 MG TABLET PO (13:55)
[2022-10-06] MEDS: GABAPENTIN 100 MG CAPSULE PO (13:56)
[2022-10-06] MEDS: MULTIVITAMINS THERAPEUTIC TAB (*BKC) 1 TABLET PO (13:56)
[2022-10-06] MEDS: PANTOPRAZOLE SOD SESQUIHYDRATE 20 MG TAB PO (13:56)
[2022-10-06] MEDS: SERTRALINE HCL 25 MG TABLET PO (13:56)
[2022-10-06 14:00] LABS: Glucose Point of Care 109 mg/dl (65-105)
== END 2022-10-06 15:51 | disposition home or self-care (01) | DRG 378 ==
LOC: ANHED 13:25 → ANH2MED 14:18
PROVIDERS: Internal Medicine Gastroenterology; Nurse Practitioner; Admitting Provider Internal Medicine; Emergency Provider Emergency Medicine; PCP Emergency Medicine; Visit Provider Nurse Practitioner
PROC: 0DJ08ZZ Inspection of Upper Intestinal Tract, Via Natural or Artificial Opening Endoscopic (ICD-10-PCS; CPT 43235; principal; 2022-10-06 15:30)
DX: K92.2 Gastrointestinal hemorrhage, unspecified (principal); I50.22 Chronic systolic (congestive) heart failure; K55.20 Angiodysplasia of colon without hemorrhage; D64.9 Anemia, unspecified; K57.30 Diverticulosis of large intestine without perforation or abscess without bleeding; K64.8 Other hemorrhoids; K29.70 Gastritis, unspecified, without bleeding; R19.01 Right upper quadrant abdominal swelling, mass and lump; Z20.822 Contact with and (suspected) exposure to COVID-19; E11.65 Type 2 diabetes mellitus with hyperglycemia; E03.9 Hypothyroidism, unspecified; J44.9 Chronic obstructive pulmonary disease, unspecified; E78.2 Mixed hyperlipidemia; E11.42 Type 2 diabetes mellitus with diabetic polyneuropathy; M19.90 Unspecified osteoarthritis, unspecified site; I48.91 Unspecified atrial fibrillation; F32.A Depression, unspecified; E04.1 Nontoxic single thyroid nodule; G47.33 Obstructive sleep apnea (adult) (pediatric); M16.11 Unilateral primary osteoarthritis, right hip; E66.9 Obesity, unspecified; Z96.641 Presence of right artificial hip joint; Z85.3 Personal history of malignant neoplasm of breast; Z68.37 Body mass index [BMI] 37.0-37.9, adult; Z87.891 Personal history of nicotine dependence; Z79.82 Long term (current) use of aspirin
CPT/HCPCS: 36415; 36430; 71045; 76705; 80053; 82274; 82607; 82728; 82746; 82948; 83036; 83540; 83550; 83735; 83880; 84443; 84466; 85014; 85018; 85025; 85055; 85610; 85730; 86850; 86900; 86901; 86920; 87637; 88305; 93306; 96361; 96374; 99285; A9270; G0378; J1815; J1940; J2704; J3480; J7040; J7050; J7120; P9016

== ENCOUNTER 2022-10-16 14:25 | Outpatient (CLI) | payer MEDICARE, OTHER, SELFPAY ==
--- NOTE | 2022-10-16 16:49 | WPDPFTINT ---
PFT Procedure Performed PFT Procedure Performed Plethysmography (Lung Vol) Diffusing Cap (DLCO) Flow Vol Loop Spirometry w/o Bronchodil PFT Interpretation This is a pulmonary function test with spirometry, plethysmography and diffusing capacity. The test was performed and results interpreted in accordance with the 2019 and 2005 ATS/ERS Task Force guidelines respectively using the Global Lung Function Initiative-2012 reference equations. Patient demonstrated good effort and cooperation. Reproducibility criteria were met. The quality of the spirometry maneuver was Grade A. Findings: Spirometry: The contour the inspiratory and expiratory flow tracing are normal. The FVC is 3.12 L, 104% predicted. The FEV1 is 2.27 L, 97% predicted. The FEV1: FVC ratio 73%. Plethysmography: The total lung capacity is 4.77 L, 92% predicted. Functional residual capacity is 2.62 L, 88% predicted. The residual volume is 1.65 L, 75% predicted. Diffusing capacity: The diffusing capacity unadjusted for hemoglobin and carboxyhemoglobin is 15.4, 73% predicted. The diffusing capacity adjusted for alveolar volume is 3.72, 87% predicted. Impression: The spirometry is normal without evidence of an obstructive abnormality. The lung volumes are normal. The diffusing capacity is normal. There are no prior studies for comparison
== END 2022-10-16 14:26 | disposition home or self-care (01) ==
PROVIDERS: PCP Emergency Medicine; Visit Provider Internal Medicine Cardiovascular Disease
DX: Z51.81 Encounter for therapeutic drug level monitoring (principal); Z79.810 Long term (current) use of selective estrogen receptor modulators (SERMs)
CPT/HCPCS: 94375; 94726; 94729

== ENCOUNTER 2022-12-09 11:35 | Outpatient (CLI) | payer MEDICARE, OTHER, SELFPAY ==
[2022-12-09 11:58] LABS: Hematocrit 39.6 % (37.0-47.0); Hemoglobin 12.1 g/dL (12.0-15.0); Mean Corpuscular HGB Conc 30.6 g/dl (32-36); Mean Corpuscular Hemoglobin 27.3 pg (26-34); Mean Corpuscular Volume 89.4 fl (80-100); Mean Platelet Volume 10.9 fl (7.4-10.4); Platelet Count Result 174 k/mm3 (150-375); Red Blood Count 4.43 M/mm3 (4.2-5.4); Red Cell Distribution Width 15.3 % (11.5-14.5); White Blood Count 6.2 K/mm3 (4.5-10.0)
[2022-12-09 12:07] LABS: Cholesterol 164 mg/dL (0-200); HDL Direct 54 mg/dL; Triglycerides 198 mg/dL (<150)
[2022-12-09 12:19] LABS: LDL Cholesterol Direct 64 mg/dL
[2022-12-09 12:52] LABS: Iron 41 ug/dL (37-170)
[2022-12-09 13:01] LABS: Percent Iron Saturation 9 % (20-50)
[2022-12-09 13:39] LABS: Creatinine Urine 107.1 mg/dL
[2022-12-09 13:44] LABS: MALB Creatinine Ratio 8.8 mg/g (0-30); Microalbumin Urine Random 9.4 mg/L (0-16.7)
== END 2022-12-09 11:36 | disposition home or self-care (01) ==
PROVIDERS: PCP Emergency Medicine; Visit Provider Internal Medicine Endocrinology, Diabetes & Metabolism
DX: E04.1 Nontoxic single thyroid nodule (principal); E11.65 Type 2 diabetes mellitus with hyperglycemia; G62.9 Polyneuropathy, unspecified; E78.5 Hyperlipidemia, unspecified; E03.9 Hypothyroidism, unspecified; E61.1 Iron deficiency
CPT/HCPCS: 36415; 80061; 82043; 83540; 83550; 84439; 84443; 85027

== ENCOUNTER 2023-07-07 10:55 | Outpatient (CLI) | payer MEDICARE, OTHER, SELFPAY ==
--- NOTE | ~2023-07-07 | XR_ITS ---
XR shoulder LT min 2V DATE: 07/07/2023 11:20 INDICATION: Pain, clicking, limited range of motion of left shoulder TECHNIQUE: 4 views COMPARISON: None FINDINGS: No fracture or dislocation, periosteal reaction or bone destruction or abnormal left should er calcification. There is osteopenia. IMPRESSION: Osteopenia Reviewed, dictated and finalized at location L. IMPRESSION: Osteopenia
== END 2023-07-07 10:56 | disposition home or self-care (01) ==
PROVIDERS: PCP Emergency Medicine; Visit Provider Emergency Medicine
DX: M25.512 Pain in left shoulder (principal); M85.812 Other specified disorders of bone density and structure, left shoulder
CPT/HCPCS: 73030

== ENCOUNTER 2023-08-11 07:42 | Outpatient (CLI) | payer MEDICARE, OTHER, SELFPAY | END 2023-08-11 07:43 | disposition home or self-care (01) | LOC: ANHAUDIO 07:43 | PROVIDERS: PCP Emergency Medicine; Visit Provider Emergency Medicine | DX: H91.90 Unspecified hearing loss, unspecified ear (principal) | CPT/HCPCS: 99199 ==

== ENCOUNTER → 2023-10-20 10:29 | Outpatient (CLI) | payer MEDICARE, OTHER, SELFPAY ==
--- NOTE | ~2023-10-20 | MM_ITS ---
EXAMINATION: MM screening [facility] BI w august HISTORY: Screening mammogram TECHNIQUE: Craniocaudal and mediolateral oblique 3-D tomosynthesis images were obtained and synthetic 2-D images were generated. CAD analysis was submitted and interpreted. COMPARISON: 03/06/2022, 01/19/2016, 09/27/1939, 12/03/2010 BREAST PARENCHYMAL COMPOSITION: The breasts are almost entirely fatty. FINDINGS: Lumpectomy changes are present in the posterior third of the outer right breast. No suspici ous mass, calcification, or architectural distortion are identified in either breast to suggest malig keyshawn. There has been no suspicious interval change. IMPRESSION: 1. No mammographic evidence of malignancy. 2. Recommend routine screening mammography in one year. BI-RADS Category 2: Benign finding(s). Reviewed, dictated and finalized at location A. 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
== END ==
PROVIDERS: PCP Emergency Medicine; Visit Provider Emergency Medicine
DX: Z12.31 Encounter for screening mammogram for malignant neoplasm of breast (principal)
CPT/HCPCS: 77063; 77067

== ENCOUNTER 2023-10-20 11:22 | Outpatient (CLI) | payer MEDICARE, OTHER, SELFPAY ==
[2023-10-20 12:27] LABS: Alanine Aminotransferase 21 U/L (6-35); Alkaline Phosphatase 68 U/L (38-126); Anion Gap 8 mmol/L (8-16); Aspartate Amino Transferase 24 U/L (14-36); Bilirubin,Total 1.1 mg/dL (0.2-1.3); Blood Urea Nitrogen 18 mg/dL (7-17); Calcium 9.1 mg/dL (8.4-10.2); Carbon Dioxide 26 mmol/L (22-30); Chloride 106 mmol/L (98-107); Estimated Glomerular Filt Rate > 60; Glucose 243 mg/dL (65-110); Potassium 4.1 mmol/L (3.4-5.0); Sodium 140 mmol/L (137-145)
[2023-10-20 13:08] LABS: Vitamin D 25 Hydroxy 32.4 ng/mL
== END 2023-10-20 11:23 | disposition home or self-care (01) ==
LOC: ANHLAB 11:25
PROVIDERS: PCP Emergency Medicine; Visit Provider Emergency Medicine
DX: E55.9 Vitamin D deficiency, unspecified (principal); I10 Essential (primary) hypertension
CPT/HCPCS: 36415; 80053; 82306

== ENCOUNTER 2023-11-03 07:48 | Outpatient (CLI) | payer MEDICARE, OTHER, SELFPAY | END 2023-11-03 07:49 | disposition home or self-care (01) | LOC: ANHAUDIO 07:48 | PROVIDERS: PCP Emergency Medicine; Visit Provider Emergency Medicine | DX: H90.3 Sensorineural hearing loss, bilateral (principal); H93.13 Tinnitus, bilateral | CPT/HCPCS: 92557; 92567 ==

== ENCOUNTER 2024-01-20 09:30 | Outpatient (RCR) | payer MEDICARE, OTHER, SELFPAY ==
[2023-12-22 09:29] VITALS: BMI 40.6
[2023-12-22 09:30] VITALS: BMI 40.6
[2024-01-20 09:30] VITALS: BMI 40.6
== END 2024-02-08 09:37 | disposition home or self-care (01) ==
LOC: ANHDMC 09:30
PROVIDERS: PCP Emergency Medicine; Visit Provider Nurse Practitioner Family
DX: E11.65 Type 2 diabetes mellitus with hyperglycemia (principal); Z71.89 Other specified counseling; Z71.3 Dietary counseling and surveillance
CPT/HCPCS: 97802; 97803; G0108; G0109

== ENCOUNTER 2024-01-27 09:48 | Outpatient (CLI) | payer MEDICARE, OTHER, SELFPAY ==
[2024-01-27 10:53] LABS: Troponin I < 0.012 ng/mL (0.000-0.034)
== END 2024-01-27 09:49 | disposition home or self-care (01) ==
LOC: ANHLAB 09:53
PROVIDERS: PCP Emergency Medicine; Visit Provider Internal Medicine Cardiovascular Disease
DX: R07.89 Other chest pain (principal)
CPT/HCPCS: 36415; 84484

== ENCOUNTER 2024-02-10 11:06 | Outpatient (CLI) | payer MEDICARE, OTHER, SELFPAY ==
[2024-02-10 11:59] LABS: Alanine Aminotransferase 21 U/L (6-35); Albumin Level 4.4 g/dL (3.5-5.1); Alkaline Phosphatase 59 U/L (38-126); Anion Gap 7 mmol/L (4-12); Aspartate Amino Transferase 22 U/L (14-36); Bilirubin,Total 1.3 mg/dL (0.2-1.3); Blood Urea Nitrogen 16 mg/dL (7-17); Carbon Dioxide 26 mmol/L (22-30); Chloride 108 mmol/L (98-107); Cholesterol 130 mg/dL (0-200); Estimated Glomerular Filt Rate > 60; Glucose 111 mg/dL (65-110); HDL Direct 44 mg/dL; Potassium 4.1 mmol/L (3.4-5.0); Sodium 141 mmol/L (137-145); Triglycerides 234 mg/dL (<150)
[2024-02-10 12:10] LABS: LDL Cholesterol Direct 54 mg/dL
[2024-02-10 12:19] LABS: Vitamin D 25 Hydroxy 28.6 ng/mL
== END 2024-02-10 11:07 | disposition home or self-care (01) ==
PROVIDERS: PCP Emergency Medicine; Referring Provider Internal Medicine Cardiovascular Disease; Visit Provider Emergency Medicine
DX: E78.5 Hyperlipidemia, unspecified (principal); E11.65 Type 2 diabetes mellitus with hyperglycemia; E03.9 Hypothyroidism, unspecified; E55.9 Vitamin D deficiency, unspecified
CPT/HCPCS: 36415; 80053; 80061; 82306; 84443; 97803

== ENCOUNTER 2024-02-25 14:30 | Outpatient (RCR) | payer MEDICARE, OTHER, SELFPAY ==
[2024-02-10 09:43] VITALS: BMI 41.1
[2024-02-10 09:45] VITALS: BMI 41.1
== END 2024-04-25 11:22 | disposition home or self-care (01) ==
LOC: ANHDMC 14:30
PROVIDERS: PCP Emergency Medicine; Visit Provider Nurse Practitioner Family
DX: E11.65 Type 2 diabetes mellitus with hyperglycemia (principal); Z71.3 Dietary counseling and surveillance; H54.7 Unspecified visual loss
CPT/HCPCS: 36415; 80053; 80061; 82306; 84443; 97803; G0109

== ENCOUNTER 2024-03-17 10:17 | Outpatient (CLI) | payer MEDICARE, OTHER, SELFPAY ==
[2024-03-17 11:31] LABS: Anion Gap 11 mmol/L (4-12); Blood Urea Nitrogen 23 mg/dL (7-17); Calcium 9.2 mg/dL (8.4-10.2); Carbon Dioxide 25 mmol/L (22-30); Chloride 106 mmol/L (98-107); Estimated Glomerular Filt Rate 55; Glucose 136 mg/dL (65-110); Potassium 4.2 mmol/L (3.4-5.0); Sodium 142 mmol/L (137-145)
== END 2024-03-17 10:18 | disposition home or self-care (01) ==
LOC: ANHLAB 10:20
PROVIDERS: PCP Emergency Medicine; Visit Provider Nurse Practitioner Adult Health
DX: I42.8 Other cardiomyopathies (principal)
CPT/HCPCS: 36415; 80048

== ENCOUNTER 2024-03-22 13:18 | Outpatient (CLI) | payer MEDICARE, OTHER, SELFPAY ==
--- NOTE | ~2024-03-22 | US_ITS ---
EXAMINATION: US thyroid DATE: 03/22/2024 14:04 INDICATION: Nontoxic single thyroid nodule TECHNIQUE: Multiple ultrasound images of the thyroid were obtained. COMPARISON: None. FINDINGS: The right thyroid lobe measures 3.5 x 1.8 x 1.8 cm. The left thyroid lobe measures 2.5 x 1.0 x 1.0 c m. And 2.0 cm wider than tall solid very hypoechoic nodule with coarse shadowing calcifications and smooth to ill-defined margins in the right thyroid lobe (TI-RADS 4, moderately suspicious , FNA if >= 1.5 cm, annual followup is >=1 cm). Additional 6 mm wide than tall mixed solid and cystic nodule with hypoechoic solid component, smooth margins and without echogenic foci (TI-RADS 3, mildly suspicious , FNA if >=2.5 cm, annual followup is >=1.5 cm) in the left thyroid lobe. There is normal echotexture , echogenicity and vascular flow throughout the thyroid gland. Additional single image is provided of an unremarkable appearing left submandibular gland. IMPRESSION: 1. 2.0 cm TI-RADS 4 right thyroid nodule for which ultrasound-guided biopsy would be recommended. Reviewed, dictated and finalized at location A. IMPRESSION: 1. 2.0 cm TI-RADS 4 right thyroid nodule for which ultrasound-guided biopsy wou ld be recommended.
== END 2024-03-22 13:19 | disposition home or self-care (01) ==
PROVIDERS: PCP Emergency Medicine; Visit Provider Nurse Practitioner Family
DX: E04.1 Nontoxic single thyroid nodule (principal)
CPT/HCPCS: 76536

== ENCOUNTER 2024-05-16 12:18 | Outpatient (CLI) | payer MEDICARE, OTHER, SELFPAY ==
--- NOTE | ~2024-05-16 | US_ITS ---
EXAMINATION: US FNA w image guidance DATE: 05/16/2024 13:59 INDICATION: Right thyroid nodule. TECHNIQUE: The procedure and its benefits and risks were discussed with the patient. Risks specifically discusse d included bleeding. The patient verbalized understanding of the risks and agreed to proceed. The nec k was prepped and draped in the usual sterile manner. 1% lidocaine was used for local anesthesia. 6 passes were made with a 25G needle into the lesion under ultrasound guidance. There were no immedia te complications. FINDINGS: Grayscale ultrasound images demonstrate needles advanced into a 2.0 cm nodule in right thyroid lobe f or biopsy. IMPRESSION: 1. Ultrasound-guided fine needle aspiration of a 2.0 cm nodule in right thyroid lobe. Reviewed, dictated and finalized at location A. IMPRESSION: 1. Ultrasound-guided fine needle aspiration of a 2.0 cm nodule in right thyroi d lobe.
== END 2024-05-16 12:19 | disposition home or self-care (01) ==
LOC: ANHIMG 12:21
PROVIDERS: PCP Emergency Medicine; Visit Provider Nurse Practitioner Family
DX: E04.1 Nontoxic single thyroid nodule (principal)
CPT/HCPCS: 10005; 88172; 88173; 88305

== ENCOUNTER 2024-06-13 10:28 | Outpatient (CLI) | payer MEDICARE, OTHER, SELFPAY ==
[2024-06-13 11:25] LABS: Creatinine Urine 236.3 mg/dL
[2024-06-13 11:30] LABS: MALB Creatinine Ratio 14.7 mg/g (0-30); Microalbumin Urine Random 34.7 mg/L (0-16.7)
[2024-06-13 11:32] LABS: Hemoglobin A1C 6.3 % (<5.7)
[2024-06-13 11:36] LABS: Alanine Aminotransferase 21 U/L (6-35); Albumin Level 4.1 g/dL (3.5-5.1); Alkaline Phosphatase 56 U/L (38-126); Anion Gap 10 mmol/L (4-12); Aspartate Amino Transferase 22 U/L (14-36); Bilirubin,Total 1.2 mg/dL (0.2-1.3); Blood Urea Nitrogen 15 mg/dL (7-17); Calcium 8.6 mg/dL (8.4-10.2); Carbon Dioxide 25 mmol/L (22-30); Chloride 105 mmol/L (98-107); Cholesterol 105 mg/dL (0-200); Estimated Glomerular Filt Rate > 60; Glucose 165 mg/dL (65-110); HDL Direct 40 mg/dL; Sodium 140 mmol/L (137-145); Triglycerides 133 mg/dL (<150)
[2024-06-13 11:47] LABS: LDL Cholesterol Direct 33 mg/dL
[2024-06-13 11:52] LABS: Vitamin D 25 Hydroxy 45.5 ng/mL
== END 2024-06-13 10:29 | disposition home or self-care (01) ==
LOC: ANHLAB 10:32
PROVIDERS: PCP Emergency Medicine; Visit Provider Emergency Medicine
DX: E78.5 Hyperlipidemia, unspecified (principal); E55.9 Vitamin D deficiency, unspecified; E11.9 Type 2 diabetes mellitus without complications
CPT/HCPCS: 36415; 80053; 80061; 82043; 82306; 83036

== ENCOUNTER 2024-10-25 11:01 | Outpatient (CLI) | payer MEDICARE, OTHER, SELFPAY ==
--- NOTE | ~2024-10-25 | XR_ITS ---
Clinical Indication: Amiodarone therapy PA and lateral views of the chest: Comparison: 10/03/2022 Findings: The lungs are clear, without evidence of focal consolidation or pleural effusion. Cardiome diastinal silhouette is stable. Bones and soft tissues are unremarkable. Impression: Clear lungs. Reviewed, dictated and finalized at location . LEMENT PROCESSOR Impression: Clear lungs.
--- OUTSIDE RECORDS SUMMARY | 2024-10-25 11:14 | XMS_ITS ---
Author Organization [facility] [address] Address [address] [place] [address] Care Team Providers Care Production Recovery Operator Name Role Phone Aba Song MD Primary Care Provide r Active Problems Problem Noted Date Diagnosed Date Morbid (severe) obesity due to excess calories 0 01/27/2024 Body mass index 40.0-44.9, adult (CMS/HCC) 01/26 Chest pressure 05/26/2022 Left leg swelling 01/22/2022 Anemia 11/20/2021 Assessment & Plan (11/20/2021 10:26 AM CDT): Likely chronic based on review of chart Received 1U PRBC overnight Will add iron profile and ferritin to pre-transfusion labs if able Check B12 and folate Reports colonoscopy within last 2 years Will start Iron supplement and have patient follow up with PCP GERD (gastroesophageal reflux disease) Assessment & Plan (11/20/2021 10:56 AM CDT): - Continue pantoprazole 20 mg daily. Assessment & Plan (11/19/2021 9:37 PM CDT): - No alarm symptoms - Continue home pantoprazole 20 mg daily. MARIA LUISA (obstructive sleep apnea) 11/19/2021 Assessment & Plan (11/19/2021 9:48 PM CDT): - Noncompliant with nocturnal CPAP. - Nocturnal O2 supplementation - Outpatient follow-up. Assessment & Plan (11/19/2021 9:38 PM CDT): - Noncompliant with nocturnal CPAP. - Outpatient follow-up. Hypothyroidism 11/19/2021 Assessment & Plan (11/19/2021 9:50 PM CDT): - Continue supplementation with Synthroid 112 mcg daily. Type 2 diabetes mellitus, wi out long-term current use of insulin 04/23/2021 Assessment & Plan (11/20/2021 10:56 AM CDT): Last A1c 6.7 - Home regimen: Lantus 45 units after lunch and metformin 1000 mg daily. Resume home regimen at discharge Assessment & Plan (11/19/2021 9:39 PM CDT): - Last A1c 6.7 - Home regimen: Lantus 45 units after lunch and metformin 1000 mg daily. - Hold metformin, continue Lantus plus sliding-scale insulin. 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 Assessment & Plan (11/19/2021 9:34 PM CDT): - Continue atorvastatin 20 mg daily. Essential hypertension 08/16/2020 Assessment & Plan (11/19/2021 9:48 PM CDT): - Continue home losartan 25 mg daily and metoprolol. - Low-salt diet. Assessment & Plan (11/19/2021 9:31 PM CDT): - Continue home losartan 25 mg daily and metoprolol. - Low-salt diet. Nonischemic cardiomyopathy (CMS/HCC) 08/16/2020 Assessment & Plan (11/20/2021 10:51 AM CDT): Chronic systolic and diastolic CHF Last transthoracic echo with an EF of 38% and grade 3 diastolic dysfunction. Euvolemic on exam - Continue home losartan 25 mg daily, Lasix 20 mg daily and metoprolol tartrate 12.5 mg b.i.d. Chronic systolic (congestive) heart failure 08/07 Assessment & Plan (11/19/2021 9:36 PM CDT): - Last transthoracic echo with an EF of 38% and grade 3 diastolic dysfunction. - No concern for acute decompensation or volume overload. - Continue home losartan 25 mg daily, Lasix 20 mg daily and metoprolol tartrate 12.5 mg b.i.d. - Consider switching to metoprolol XL prior to discharge. Atrial fibrillation (CMS/HCC) 08/16/2020 Assessment & Plan (11/20/2021 10:50 AM CDT): CHADS2 Vasc risk score of 4 on anticoagulation complicated by fall with subdural hematoma Status post uncomplicated LAAO with 21 mm Watchman via right femoral vein with 14 Romansh sheath. No evidence of bleeding or hematoma on exam. Currently in normal sinus rhythm Continue amiodarone 200 mg daily and apixaban 5 mg b.i.d.(for at least 45 days) Aspirin 81 mg daily started Chest x-ray pending Patient will follow up with Dr. Russ for Echo in 45 days Stable for discharge to home Assessment & Plan (11/19/2021 9:44 PM CDT): - With CHADS2 Vasc risk score of 4 on anticoagulation complicated by fall with subdural hematoma - She is now status post uncomplicated LAAO with 21 mm watchman via right femoral vein with 14 Romansh sheath. No evidence of bleeding or hematoma on exam. - Currently in normal sinus rhythm, continue amiodarone 200 mg daily and apixaban 5 mg b.i.d. - Start aspirin 81 mg daily, TTE and chest x-ray in the AM - Monitor on Telemetry - Follows with Dr Russ Malignant neoplasm of breast 05/02/2009 CASTRO (dyspnea on exertion) Current Treatment and Therapy Plans No current plan information found. Past Treatment and Therapy Plans No past plan information found. Lifetime Dose Tracking * Chemical Lifetime Dose Automatic Entry Manual Entr y Fluoro Time 2 minutes 2 minutes 0 minutes Air kerma at the reference point (Ka,r) 995 mGy 1 0 mGy 985 mGy DLP 8,273 mGycm 8,273 mGycm 0 mGycm
--- OUTSIDE RECORDS SUMMARY | 2024-10-25 11:14 | XMS_ITS | Encounter Summary ---
Author Organization [facility] Address [address] [place] [address] Care Team Providers Care Die Maker Apprentice Name Role Phone Aba Song MD Primary Care Provide r Encounter Details Date Type Department Care Team (Late st Contact Info) Description 05/11/2019 Telephone [facility] [address] 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
--- OUTSIDE RECORDS SUMMARY | 2024-10-25 11:14 | XMS_ITS | Encounter Summary ---
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 inspector current use of amiodarone Procedures Pulmonary Function Test -External Richard Collier MD [address] [facility] [address] [place] [address] Phone: tel: fax: Referral ID Status Reason Start Date Expiration Date V isits Requested Visits Authorized [id number] Authorized 10/25/2024 11/24/2025 1 1 RY GOODS WORKER Reason for Visit * Reason Comments Atrial Fibrillation Congestive Heart Failure Cardiomyopathy 6-9 mo f/u Encounter Details Date Type Department Care Team (Latest Contact Info) Description 10/25/2024 10:15 AM PANTRY GOODS WORKER Office Visit [facility] Cardiology [address] [place] [address] Richard Collier MD [address] [place], [place] [id number] watermelon inspector current use of amiodarone (Primary Dx); Chronic systolic (congestive) heart failure (HCC); Nonischemic cardiomyopathy (CMS/HCC) (HCC); Hyperlipidemia associated with type 2 diabetes mellitus (HCC); Paroxysmal atrial fibrillation (CMS/HCC) (HCC) Social History Tobacco Use Types Packs/Day Years Used Date Smoking Tobacco: Former Cigarettes 0.1 20 0 04/19/1972 - 04/19/1992 Smokeless Tobacco: Never Alcohol Use Standard Drinks/Week Comments Never 0 (1 standard drink = 0.6 oz pur e alcohol) Social Connection and Isolat ion Panel [NHANES] Answer Date Recorded In a typical week, how many times do you talk on the phone with family, friends, or neighbors? More than three times a week 01/29/2021 How often do you get togethe r with friends or relatives? More than three times a week 01/29/2021 How often do you attend chur ch or hindu services? Never 01/29/2021 Do you belong to any clubs o r organizations such as pentecostal groups, unions, fraternal or athletic groups, or [...] on file Legal Sex Female 4:56 AM PANTRY GOODS WORKER Gender Identity Female 04/16/2020 9:15 AM CDT Sexual Orientation Straight 04/16/2020 9: 15 AM CDT documented as of this encounter Last Filed Vital Signs Vital Sign Reading Time Taken Comments Blood Pressure 134/86 10/25/2024 10:25 AM PANTRY GOODS WORKER Pulse 71 10/25/2024 10:25 AM PANTRY GOODS WORKER Temperature - - Respiratory Rate - - Oxygen Saturation 97% 10/25/2024 10:25 AM PANTRY GOODS WORKER Inhaled Oxygen Concentration - - Weight 108.9 kg (240 lb) 10/25/2024 10:25 AM PANTRY GOODS WORKER Height 165.1 cm (5' 5 ) 10/25/2024 10:25 AM PANTRY GOODS WORKER Body Mass Index 39.94 10/25/2024 10:25 AM PANTRY GOODS WORKER documented in this encounter Progress Notes * Richard Collier MD - 10/25/2024 10:15 AM CST [facility] Cardiology [address] [place] [address] Date of Visit: 10/25/2024 Patient ID: Karly Jon [id number] Chief Complaint: Karly Jno is a 69 y.o. female who comes to the office for hospital follow-up appointment of her atrial fibrillation and new diagnosis of nonischemic cardiomyopathy. History of Present Illness: Karly Jon is a 69 y.o. female with a past medical history of hypertension, diabetes, hyperlipidemia, hypothyroidism, GERD, obesity, breast cancer, arthritis, anxiety/depression. She was havingworsening dyspnea and her PCP sent her for a stress test. When she presented for the stress test she was found to be in AFib with RVR and admitted. Dr. Collier met her in consultation. Echocardiogram was performed and showed severely reduced LV systolic function with EF estimated 15-20%, diastolic function indeterminate, reduction in the RV systolic function, moderate LAE, moderate MR, mild TR andPASP estimated 38 mmHg. HATTIE was performed and showed left atrial appendage thrombus with some loosely organized thrombus at the mouth of the appendage extending into the left atrium, [id number], therefore cardioversion was not performed. Cardiac catheterization was performed to rule out ischemia as the etiology of her cardiomyopathy. This was performed by Dr. Aleman on 03/30/2020. Coronary angiography showed a right-dominant circulation with no evidence of coronary artery disease. LV appeared massively dilated with global hypocontractility and EF estimated 15%. She had already been on metoprolol prior to hospitalization so digoxin was added. She was on telmisartan and this was changed to losartan. She had a positive apnea link and pulmonology advised outpatient sleep study. She had an abnormal CT of her chest and pulmonology also ordered PFTs to be done outpatient. Shortly after discharge she called our office concerned about swelling in the right leg. Groin ultrasound showed hematoma but no pseudoaneurysm. She was started on furosemide 20 mg daily to alleviate the swelling. Hospital follow-up appointment with INJURY PREVENTION COORDINATOR 04/19/2020: Right the right groin discomfort has improved, lower extremity edema is going down and she lost 10 lb after starting the furosemide. She has diligently recording her home weights, oral fluid intake and her sodium intake. She is drinking somewhere around 30-40 oz a day, consuming 7995-7064 mg of sodium a day. Her insurance denied Entresto. She didnot realize she needed to schedule a sleep study and PFTs. Follow-up note 05/04/2020: She continues to feel better. Her weight is down to 231 which is about 30 lb less than when she was initially. She continues to lose weight and is still diuresing. Her hematoma is slowly improving. She denies any chest pain, significant shortness of breath, syncope, presyncope, paroxysmal nocturnal dyspnea orthopnea, palpitations. No bleeding problems Follow-up note 08/16/2020: She did undergo a temporarily successful HATTIE guided cardioversion on July 11. She unfortunately reverted back into atrial fibrillation. She thinks she was in sinus rhythm for about 10 days and did feel better while in sinus rhythm. She denies any chest pain. She states her Shortness of breath is much improved as compared to What was previously but she is still having somewhat limited breathing with activity. Occasional palpitations noted especially at night. No paroxysmal nocturnal dyspnea orthopnea. She has mild amount swelling. Follow-up note 09/03/2020: She feels much better on the amiodarone. She feels less palpitations. She feels no chest pain, shortness breath, syncope, presyncope, paroxysmal nocturnal dyspnea orthopnea, edema palpitations Follow-up note 09/24/2020: She did undergo successful cardioversion couple weeks ago while on amiodarone. Metoprolol reduced. She is feeling better now and she is still in sinus rhythm. She has more energy. She has no chest pain, shortness breath, syncope, presyncope, paroxysmal nocturnal dyspnea orthopnea, edema palpitations Follow-up note 12/19/2020: She returns today still feeling pretty well. She denies any chest pain, shortness breath, syncope, presyncope, paroxysmal nocturnal dyspnea orthopnea, edema palpitations. She does have a headache and workup has been performed by Dr. Song. No bleeding problems. Follow-up note 06/26/2021: Since last visit she has had some significant issues. She slipped and fell. She hit her head and had a large subdural hematoma requiring surgical evacuation. She has been several days at [facility]. She then was discharged and was recovering but then had a ???seizure?? versus stroke. She had an episode in which her left arm went numb and weak. This lasted for a brief period time and gradually improved and normalized. She was hospitalized for couple of days at that time and was not put on any seizure medications. She was taken off of Eliquis temporarily because of the subdural hematoma and remains off of anticoagulation for now although her neurosurgeon has okayed recurrent use if need be. she denies any chest pain, shortness breath, syncope, presyncope, paroxysmal nocturnal dyspnea, orthopnea, edema or palpitations. Follow-up note 10/08/2021: She is feeling more fluttering in her chest again. Over the past couple of weeks she has been noticing some flutters at night. It will come and go. Last for a few seconds. She is also having some chest pain worsened also whenever she is lying down. It is not exertional. It will last for 15-20 minutes. Improved with relaxation. No associated symptoms. She denies any significant swelling, paroxysmal nocturnal dyspnea orthopnea. Follow-up note 01/22/2022: She has no chest pain, shortness breath, syncope, presyncope, paroxysmalnocturnal dyspnea. She has occasional flutters which are very short lived. She has some left leg pain and swelling around the ankle recently. No significant shortness of breath. She did undergo successful Watchman procedure at [facility]. Follow-up note 05/26/2022: She does have some shortness of breath and heaviness in her chest. This usually occurs with activity. She has been under lot more stress as of late has been very active over the past month. She also describes 2 other types of chest pain 1 is worsened whenever she lays on her side and improved whenever she lays on her back. She also has a stabbing pain. She denies any syncope, presyncope, paroxysmal nocturnal dyspnea orthopnea Follow-up note 07/07/2022: She has no significant exertional chest pain. She does have a little bitof chest pain or she is lying down at night but she moves her body and her symptoms improved. Lyingon a pillow helps. She does have some dyspnea with exertion but this is not new or different. She denies any syncope, presyncope, paroxysmal nocturnal dyspnea orthopnea, edema palpitations. Follow-up note 10/03/2022: She denies any chest pain. Does have some dyspnea on exertion which seems to be getting little bit worse. She is been have a little bit of swelling. Still has some poundingin her chest whenever she lays down at night. No paroxysmal nocturnal dyspnea orthopnea. Follow-up note 01/14/2023: She was found have severe anemia and was hospitalized. Workup did resultin finding what sounds to be an ulcer. She is back on iron supplementation. She currently feels pretty well and is improving. She has some indigestion-like symptoms which is nonexertional worsened with Croat[place] food or with spicy food. Otherwise no exertional chest pain, shortness breath, syncope, presyncope, paroxysmal nocturnal dyspnea orthopnea, edema, palpitations Follow-up note 07/22/2023: She has some rare palpitations lasting for less than 1 minute at a time.No chest pain, shortness breath, syncope, presyncope, paroxysmal nocturnal dyspnea orthopnea, significant edema Follow-up note 01/27/2024: For the past 7-10 days she has been having a ???heavy feeling?? in her chest all the time. It is worsening she lays down. Sometimes better when she stands up. At other times it was worsened with activity. She has no shortness breath, syncope, presyncope, paroxysmal nocturnal dyspnea orthopnea, edema palpitations. Heaviness is there all the time Follow-up with INJURY PREVENTION COORDINATOR 03/17/2024: At the last visit losartan was changed to Entresto and had no perceived problems with this. Her troponin was negative and echocardiogram was performed. Today she reportsshe has not having the chest heaviness as much. She attributed the worsening symptoms 2 months ago to chasing her dog when it was hot outside. She is having some pain in her lower back but has no other cardiac concerns. Follow-up note 10/25/2024: She has little bit of swelling but otherwise nothing significant or unusual. No chest pain, shortness breath, syncope, presyncope, paroxysmal nocturnal dyspnea, orthopnea, palpitations Records that I personally reviewed on the day of this visit include: (the interpretation is outlined in the HPI above) March 2020 [facility] inpatient records including the cardiology consultation, transthoracic echocardiogram report, transesophageal echocardiogram report, cardiac catheterization report, discharge summary, telephone notes in epic after discharge I have also reviewed: allergies, current medications, past family history, past medical history, past social history, past surgical history and problem list Review of Systems Constitutional: Positive for weight gain. Negative for diaphoresis, fever, malaise/fatigue and weight loss. HENT: Negative for hearing loss. Eyes: Negative for visual disturbance. Cardiovascular: Positive for palpitations. Negative for chest pain, claudication, dyspnea on exertion, leg swelling, orthopnea, paroxysmal nocturnal dyspnea and syncope. Respiratory: Positive for snoring. Negative for cough, hemoptysis, shortness of breath and wheezing. Endocrine: Negative for polyphagia. Hematologic/Lymphatic: Does not bruise/bleed easily. Skin: Negative for poor wound healing and rash. Musculoskeletal: Negative for joint pain and myalgias. Gastrointestinal: Negative for heartburn, nausea and vomiting. Genitourinary: Negative for hematuria. Neurological: Negative for dizziness, headaches and light-headedness. Psychiatric/Behavioral: Negative for depression. The patient is not nervous/anxious. Vital Signs: BP 134/86 (BP Location: Left arm, Patient Position: Sitting) Pulse 71 Ht 165.1 cm (5' 5 ) Wt 108.9 kg (240 lb) SpO2 97% BMI 39.94 kg/m?? Physical Exam Vitals reviewed. Constitutional: General: She is not in acute distress. Appearance: She is well-developed. HENT: Head: Normocephalic and atraumatic. Nose: Nose normal. Eyes: General: No scleral icterus. Conjunctiva/sclera: Conjunctivae normal. Pupils: Pupils are equal, round, and reactive to light. Neck: Vascular: No JVD. Trachea: No tracheal deviation. Cardiovascular: Rate and Rhythm: Normal rate and regular rhythm. Pulses: Femoral pulses are 2+ on the right side. Heart sounds: Normal heart sounds. No murmur heard. Pulmonary: Effort: Pulmonary effort is normal. No respiratory distress. Breath sounds: Normal breath sounds. Abdominal: General: Bowel sounds are normal. Palpations: Abdomen is soft. Tenderness: There is no abdominal tenderness. Musculoskeletal: General: Normal range of motion. Cervical back: Normal range of motion. Comments: Lordosis, walks with a slight limp. Skin: General: Skin is warm and dry. Neurological: Mental Status: She is alert and oriented to person, place, and time. Psychiatric: Mood and Affect: Mood normal. Allergies Allergen Reactions Lisinopril Hives Adhesive Rash Current Outpatient Medications: amiodarone (PACERONE) 200 mg tablet, Take 0.5 tablets (100 mg total) by mouth daily, Disp: 45 tablet, Rfl: 3 amoxicillin 500 mg capsule, Take 1 tablet/capsule (500 mg total) by mouth as needed Dental work, Disp: , Rfl: aspirin 325 mg tablet, Take 1 tablet (325 mg total) by mouth daily, Disp: , Rfl: atorvastatin (LIPITOR) 20 mg tablet, Take 1 tablet (20 mg total) by mouth every morning, Disp: , Rfl: cranberry 500 mg capsule, Take 500 mg by mouth every morning, Disp: , Rfl: docusate sodium (COLACE) 100 mg capsule, Take 1 capsule (100 mg total) by mouth 2 (two) times a day, Disp: , Rfl: FeroSuL 325 mg (65 mg iron) tablet, Take 1 tablet (325 mg total) by mouth daily with breakfast, Disp: , Rfl: furosemide (LASIX) 20 mg tablet, Take 1 tablet (20 mg total) by mouth daily, Disp: 90 tablet, Rfl: 2 gabapentin (NEURONTIN) 100 mg capsule, Take 1 capsule (100 mg total) by mouth 3 (three) times a day, Disp: , Rfl: glucagon (BAQSIMI) 3 mg/actuation spray,non-aerosol, See Instructions, # 2 EA, 4 total refill(s), Hard Stop, Disp: , Rfl: insulin glargine (insulin glargine) 100 unit/mL vial for injection, Inject 50 Units under the skin daily after lunch, Disp: , Rfl: magnesium oxide (MAG-OX) 400 mg (241.3 mg elemental magnesium) tablet, Take 1 tablet (400 mg total)by mouth daily, Disp: 90 tablet, Rfl: 3 mecobalamin, vitamin B12, (B12 Active) 1,000 mcg tablet,chewable, Take 1,000 mcg by mouth every morning, Disp: , Rfl: metFORMIN (GLUCOPHAGE) 1,000 mg tablet, Take 1 tablet (1,000 mg total) by mouth 2 (two) times a daywith meals, Disp: , Rfl: metoprolol tartrate (LOPRESSOR) 25 mg immediate release tablet, Take 0.5 tablets (12.5 mg total) bymouth 2 (two) times a day, Disp: 90 tablet, Rfl: 1 Ozempic 1 mg/dose (4 mg/3 mL) pen injector injection, , Disp: , Rfl: pantoprazole DR (PROTONIX) 20 mg EC tablet, Take 1 tablet (20 mg total) by mouth every morning, Disp: , Rfl: ProAir HFA 90 mcg/actuation inhaler, Inhale 1 puff as needed, Disp: , Rfl: sacubitriL-valsartan (ENTRESTO) 49-51 mg tablet, Take 1 tablet by mouth 2 (two) times a day, Disp: 60 tablet, Rfl: 0 sertraline (ZOLOFT) 25 mg tablet, Take 1 tablet (25 mg total) by mouth every morning, Disp: , Rfl: Sure Comfort Pen Needle 30 gauge x 5/16 needle, , Disp: , Rfl: Synthroid 112 mcg tablet, Take 1 tablet (112 mcg total) by mouth nightly, Disp: , Rfl: Lab Results Component Value Date POTASSIUM 3.9 05/05/2022 BUNSER 16 05/05/2022 CREATININE 0.80 06/06/2022 CHOL 126 01/26/2021 TRIG 152 (H) 01/26/2021 LDLCALC 50 01/26/2021 HDL 46 01/26/2021 HATTIE cardioversion 07/11/2020 EF is 20 25% with moderate MR. Successful jain of sinus rhythm EKG 09/24/2020: Sinus rhythm, left axis deviation. Cannot rule out anteroseptal infarction, age undetermined. Abnormal EKG EKG 09/03/2020: Atrial fibrillation, cannot rule out anterior infarction, age undetermined, left axis deviation. Abnormal EKG EKG 10/03/2022: Normal sinus rhythm/sinus arrhythmia with first-degree AV block, PVC, can not rule out anterior infarction. Low voltage. Abnormal EKG EKG 07/22/2023: Sinus arrhythmia, first-degree AV block, LAFB, abnormal ECG EKG 5224: Normal sinus rhythm PVCs, anteroseptal infarction, age undetermined, left axis deviation abnormal EKG Successful cardioversion 09/14/2020 ECHO 12/12/2020 Mild concentric left ventricular hypertrophy. Moderate enlargement of left ventricle cavity. Moderate global left ventricular systolic dysfunction worse in the apical segments with sparing of the basal inferior and lateral brooks. There is restrictive diastolic dysfunction Grade III to IV. Ejection fraction is visually estimated at 35 %. Ejection fraction is measured at 38 %. There is moderate enlargement of left atrium. Mild mitral valve regurgitation. Normal right ventricular systolic pressure. Estimated peak RVSP is 30 mmHg. Normal sinus rhythm. Compared to the Echo of 06/2020, there has been some improvement in left ventricular function and mitral regurgitation. HATTIE 12/2021 Mildly dilated LV with severely reduced global LV systolic function. No SOURAV thrombus seen. Moderate LAE. Moderate functional MR seen. An IAS aneurysm with PFO noted. A 20 mm Watchman device was placed without complications. There was good compression and no peridevice flow seen by color Doppler. No pericardial effusion seen. A small ASD seen with L to R shunt as result of septal puncture plus the previously noted PFO WATCHMAN 11/19/2021 Successful implantation of Watchman left atrial appendage occluder device. Implanted Hardware: Watchman 20 mm device. MPI 06/18/2022 Global left ventricular function is normal. Left ventricular ejection fraction is 58 %. Myocardial perfusion imaging is normal. Large area of anterior, anteroseptal and anterolateral breast attenuation artifact is seen which normalizes with prone imaging. Negative EKG portion of stress test. Echocardiogram September 2022: Moderate LV enlargement with mild LV dysfunction with ejection fraction 40-45%. Dilated left atrium. ECHO 01/28/24 Mild concentric left ventricular hypertrophy. Moderate enlargement of left ventricle cavity. Left ventricular systolic function at the lower limit of normal. Impaired diastolic relaxation Grade I. Ejection fraction is visually estimated at 50-55 %. Ejection fraction is measured at 49 %. Global Longitudinal Strain is -14 %. GLS is abnormal. Normal right ventricular systolic function. Mild enlargement of right ventricle. There is mild enlargement of left atrium. Mild mitral valve regurgitation. Normal sinus rhythm. Assessment: Diagnoses and all orders for this visit: Chronic systolic (congestive) heart failure (CMS/HCC) (Primary) Better compensated Nonischemic cardiomyopathy (CMS/HCC) Improved and probably related to AFib with RVR Hypertension associated with diabetes (CMS/HCC) At goal Hyperlipidemia associated with type 2 diabetes mellitus (CMS/HCC) On statin Paroxysmal atrial fibrillation (CMS/HCC) Back in sinus rhythm and on anticoagulation Long-term current use of amiodarone Chest x-ray and lab work normal (LFTs, thyroid, CBC normal June 2023) and PFTs 2022 Chest pressure Can not rule out angina Body mass index 40.0-44.9, adult Unchanged Morbid (severe) obesity due to excess calories Plan/Recommendations: Chest x-ray and PFTs because amiodarone use. She is having her thyroid panel and liver function performed later today She is improved and stable Continue amiodarone because of her atrial fibrillation. Continue aspirin and other medications for now. PFTs normal 10/16/2022 2D echocardiogram Doppler because of chest pressure, CHF Continue Entresto for CHF and cardiomyopathy Follow-up in 6 months or sooner as clinically indicated Richard Collier MD, [facility] This note is dictated and transcribed using [employer] Software. Passenger Attendant variancesmay occur. Despite proofreading, typographical errors may occur. RY GOODS WORKER documented in this encounter Plan of Treatment Scheduled Orders Name Type Priority Associated Diagnoses Orde r Schedule XR Chest Pa Lateral 2 Views Imaging Schedule Routine, Read Routine (OP Routine) watermelon inspector current use of amiodarone Expected: 10/25/2024, Expires: 10/25/2025 Pulmonary Function Test -External PFT Routine watermelon inspector current use of amiodarone 1 Occurrences starting 10/25/2024 until 10/25/2025 documented as of this encounter Visit Diagnoses Diagnosis USP current use of amiodarone- Primary Chronic systolic (congestive) heart failure (HCC) Nonischemic cardiomyopathy (CMS/HCC) (HCC) Other primary cardiomyopathies Hyperlipidemia associated with type 2 diabetes mellitus (HCC) Paroxysmal atrial fibrillation (CMS/HCC) (HCC) Atrial fibrillation documented in this encounter Discontinued Medications Medication Sig Discontinue Reason Start Date End Da te empagliflozin (JARDIANCE ORAL) Therapy completed 07/27/2023 10/25/2024 glimepiride (AMARYL) 2 mg tablet Do not drink alcohol.Avoid exposure to sun.Take or use exactly as directed. Therapy completed 07/27/2023 10/25/2024 FreeStyle Lite Strips strip Therapy completed 05/15/2020 10/25/2024 documented as of this encounter Additional Health Concerns Infection Onset Date Last Indicated Resolved Time MDR gram neg/ESBL 04/22/2021 04/22/2021 documented as of this encounter Care Teams Print Line Tailer Relationship Specialty Start Date End Date Aba Song MD [address] [place] [address] PCP - General Emergency Medicine 03/15/20 documented as of this encounter
--- OUTSIDE RECORDS SUMMARY | 2024-10-25 11:14 | XMS_ITS | Clinical Summary ---
Author Organization [facility] Address [address] [facility] [facility] [place] [address] Phone Care Team Providers Care Aluminizer Name Role Phone Zen Cunningham MD Primary Care Provider [phone] Allergies Active Allergy Reactions Criticality Noted Date Comments Lisinopril Hives High 06/01/2017 Medications aspirin (ECOTRIN EC) 81 mg Tablet, Delayed Release (E.C.) Take 81 mg by mouth daily. Active atorvastatin (LIPITOR) 20 mg tablet Take 20 mg by mouth late in the day. Active celecoxib (CeleBREX) 200 mg capsule Take 200 mg by mouth 2 times daily. Active glipiZIDE (GLUCOTROL) 5 mg tablet Take 5 mg by mouth daily with breakfast. 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 Active metoprolol tartrate (LOPRESSOR) 50 mg tablet Take 50 mg by mouth daily. Active sertraline (ZOLOFT) 50 mg tablet Take 50 mg by mouth daily. Active sitaGLIPtin (JANUVIA) 100 mg Tablet Take 100 mg by mouth daily with breakfast. Active telmisartan (MICARDIS) 20 mg Tablet Take 20 mg by mouth daily. Active traMADol (ULTRAM) 50 mg tablet Take 100 mg by mouth every 6 hours as needed for Pain. Active Cranberry 500 mg Capsule Take 500 Capsules by mouth daily. Active Active Problems Problem Noted Date Diagnosed Date Abnormal ECG 06/01/2017 Essential hypertension 06/01/2017 Type 2 diabetes mellitus without complication Dyslipidemia 06/01/2017 Morbid obesity with BMI of 45.0-49.9, adult 05/09 Primary osteoarthritis of right hip 06/01/2017 Family History Medical History Relation Name Comments Cancer Father Heart Disease Mother Relation Name Status Comments Father (Age 55) Mother (Age 74) Social History Tobacco Use Types Packs/Day Years Used Date Smoking Tobacco: Former Cigarettes 0 01/06/1972 - 01/06/1992 Smokeless Tobacco: Never Alcohol Use Standard Drinks/Week Comments No 0 (1 standard drink = 0.6 oz pur e alcohol) Comments Unknown Sex and Gender Information Value Date Recorded Sex Assigned at Not on file Legal Sex Female 12:15 PM CDT Gender Identity Not on file Sexual Orientation Not on file Last Filed Vital Signs Vital Sign Reading Time Taken Comments Blood Pressure 120/78 06/01/2017 10:02 AM CDT Pulse 91 06/01/2017 10:02 AM CDT Temperature - - Respiratory Rate - - Oxygen Saturation 92% 06/01/2017 10:02 AM CDT Inhaled Oxygen Concentration - - Weight 109.8 kg (242 lb) 06/01/2017 10:02 AM CDT Height 152.4 cm (5') 06/01/2017 10:02 AM CDT Body Mass Index 47.26 06/01/2017 10:02 AM CDT Plan of Treatment Health Maintenance Due Date Last Done Comments DTAP/TDAP/TD VACCINES (1 - Tdap) 1973 BREAST CANCER SCREENING 1994 COLORECTAL SCREENING 1999 Colorectal Cancer Screening 1999 FIT-DNA Q 3 years 1999 FIT/FOBT Q 1 year 1999 Flex Sig/CT Colonography Q 5 years 1999 PNEUMOCOCCAL VACCINE 65+ YEARS (1 of 1 - PCV) 10/14/19 05 ZOSTER VACCINE (1 of 2) 2004 OSTEOPOROSIS SCREENING 2019 INFLUENZA VACCINE (#1) 2024 RSV VACCINE (60+ or ) (1 - 1-dose 75+ series) 2029 Care Teams Aluminizer Relationship Specialty Start Date End Date Zen Cunningham MD [address] [place] [phone] PCP - General Internal Medicine 05/27/17
--- OUTSIDE RECORDS SUMMARY | 2024-10-25 11:14 | XMS_ITS | Encounter Summary ---
Author Organization [facility] Address [address] [place] [address] Phone Care Team Providers Care Maori Physiotherapist Name Role Phone Aba Song MD Primary Care Provide r Reason for Referral * Procedure (Routine) - Closed Specialty Diagnoses / Procedures Referred By Jolene heart Referred To Contact Diagnoses residential current use of amiodarone Procedures Pulmonary Function Test -External Richard Collier MD [address] [address] Phone: tel: fax: Referral ID Status Reason Start Date Expiration Date Visits Re quested Visits Authorized [id number] Closed 05/26/2022 06/25/2023 1 1 Reason for Visit * Procedure (Routine) - Closed Specialty Diagnoses / Procedures Referred By Jolene heart Referred To Contact Diagnoses residential current use of amiodarone Procedures Pulmonary Function Test -External Richard Collier MD [address] [address] Phone: tel: fax: Referral ID Status Reason Start Date Expiration Date Visits Re quested Visits Authorized [id number] Closed 05/26/2022 06/25/2023 1 1 Encounter Details Date Type Department Care Team (Latest Contact Info) Description 06/20/2022 12:39 PM CDT Hospital Encounter [facility] PFT [facility] [address] [facility] [address] [place] [address] residential current use of amiodarone Social History Tobacco [...] often do you attend chur ch or spiritism services? Never 01/29/2021 Do you belong to any clubs o r organizations such as mandaeism groups, unions, fraternal or athletic groups, or [...] place to sleep or slept in a retirement (including now)? 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 documented in this encounter Results * Pulmonary Function Test - (06/20/2022 1:44 PM CDT) FVC PRE 2.90 L [facility] FVC %PRE PRED 100 % [facility] FEV1 PRE 2.45 L [facility] FEV1 %PRE PRED 108 % [facility] FEV1/FVC PRE 84.6 % [facility] FRC PL PRE 2.93 L [facility] FRC PL %PRE PRED 103 % [facility] RV PRE 2.35 L [facility] RV %PRE PRED 111 % [facility] TLC PRE 5.35 L [facility] TLC %PRE PRED 107 % [facility] DLCO PRE 14.5 ml/min/mmH g [facility] DLCO %PRE PRED 75 % [facility] Anatomical Region Laterality Modality PFT 06/20/2022 12:5 1 PM CDT Narrative 06/24/2022 7:45 AM CDT PFT performed at:->External us Richard Collier MD PFT ORDERABLES Final Res ult documented in this encounter Visit Diagnoses Diagnosis 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
--- OUTSIDE RECORDS SUMMARY | 2024-10-25 11:14 | XMS_ITS | Referral Summary ---
Author Organization [facility] [address] [facility] [address] Address [address] [place] [address] Care Team Providers Care Fire Equipment Inspector Helper Name Role Phone Aba Song MD Primary Care Provide r Encounters Date Type Department Care Team Description 10/25/2024 10:15 AM SWITCH CLEANER Office Visit [facility] Cardiology [address] [facility] [address] [place] [address] Richard Clolier MD lobsterman current use of amiodarone (Primary Dx); Chronic systolic (congestive) heart failure (HCC); Nonischemic cardiomyopathy (CMS/HCC) (HCC); Hyperlipidemia associated with type 2 diabetes mellitus (HCC); Paroxysmal atrial fibrillation (CMS/HCC) (HCC) from Last 3 Months Allergies Active Allergy Reactions Criticality Noted Date Comments Adhesive Rash Medium 10/13/2022 Lisinopril Hives High 06/01/2017 Medications ProAir HFA 90 mcg/actuation inhalerIndicatio ns:Acute Asthma Attack Inhale 1 puff as needed 0 Active sertraline (ZOLOFT) 25 mg tabletIndication s:depression Take 1 tablet (25 mg total) by mouth every morning 0 Active gabapentin (NEURONTIN) 100 mg capsuleIndicatio ns:Neuropathic Pain Take 1 capsule (100 mg total) by mouth 3 (three) times a day 0 Active Synthroid 112 mcg tabletIndication s:hypothyroidism Take 1 tablet (112 mcg total) by mouth nightly 0 Active atorvastatin (LIPITOR) 20 mg tabletIndication s:hyperlipidemia Take 1 tablet (20 mg total) by mouth every morning [address] (PROTONIX) 20 mg EC tabletIndication s:Stress Ulcer Prophylaxis Take 1 tablet (20 mg total) by mouth every morning 0 Active docusate sodium (COLACE) 100 mg capsuleIndicatio ns:constipation, Stool Softener Take 1 capsule (100 mg total) by mouth 2 (two) times a day 1 Active metFORMIN (GLUCOPHAGE) 1,000 mg tabletIndication s:type 2 diabetes mellitus Take 1 tablet (1,000 mg total) by mouth 2 (two) times a day with meals Active cranberry 500 mg capsule Take 500 mg by mouth every morning Active mecobalamin, vitamin B12, (B12 Active) 1,000 mcg tablet,chewableI ndications:Preve ntion of Vitamin B12 Deficiency Take 1,000 mcg by mouth every morning Active amoxicillin 500 mg capsuleIndicatio ns:Prophylaxis, Medical Take 1 tablet/capsul e (500 mg total) by mouth as needed Dental work 1 Active Sure Comfort Pen Needle 30 gauge x /16 needle 2 Active insulin glargine (insulin glargine) 100 unit/mL vial for injectionIndicat ions:Diabetes Mellitus Inject 50 Units under the skin daily after lunch 2 Active aspirin 325 mg tablet Take 1 tablet (325 mg total) by mouth daily Active FeroSuL 325 mg (65 mg iron) tablet Take 1 tablet (325 mg total) by mouth daily with breakfast 3 Active glucagon (BAQSIMI) 3 mg/actuation spray,non-aeroso l See Instructions, # 2 EA, 4 total refill(s), Hard Stop 4 11/01/19 25 Active sacubitriL-valsa rtan (ENTRESTO) 49-51 mg tabletIndication s:chronic heart failure Take 1 tablet by mouth 2 (two) times a day 60 tablet 4 01/27/20 25 Active Ozempic 1 mg/dose (4 mg/3 mL) pen injector injection 4 Active furosemide (LASIX) 20 mg tabletIndication s:Chronic systolic congestive heart failure (CMS/HCC) (HCC) Take 1 tablet (20 mg total) by mouth daily 90 tablet 2 4 Active metoprolol tartrate (LOPRESSOR) 25 mg immediate release tablet Take 0.5 tablets (12.5 mg total) by mouth 2 (two) times a day 90 tablet 1 4 06/20/20 25 Active amiodarone (PACERONE) 200 mg tabletIndication s:Ventricular Rate Control in Atrial Fibrillation Take 0.5 tablets (100 mg total) by mouth daily 45 tablet 3 4 Active magnesium oxide (MAG-OX) 400 mg (241.3 mg elemental magnesium) tabletIndication s:Hypomagnesemia Take 1 tablet (400 mg total) by mouth daily 90 tablet 3 4 Active FreeStyle Lite Strips strip 0 10/25/19 25 Discontin ued(Thera py completed ) glimepiride (AMARYL) 2 mg tablet Do not drink alcohol.Avoid exposure to sun.Take or use exactly as directed. 3 10/25/19 25 Discontin ued(Thera py completed ) empagliflozin (JARDIANCE ORAL) 3 10/25/19 25 Discontin ued(Thera py completed ) Active Problems Problem Noted Date Diagnosed Date Morbid (severe) obesity due to excess calories 0 01/27/2024 Body mass index 40.0-44.9, adult ([facility]) 01/26 Chest pressure 05/26/2022 Left leg swelling [...] up with PCP GERD (gastroesophageal reflux disease) 2 Assessment & Plan (11/20/2021 10:56 AM CDT): [...] mcg daily. Type 2 diabetes mellitus, wi thout long-term current use of insulin 04/23/2021 Assessment [...] (01/26/2021): Added automatically from request for surgery [id number] lobsterman current use of amiodarone 12/19/2020 Chronic anticoagulation [...] Watchman via right femoral vein with 14 Italian sheath. No evidence of bleeding or hematoma [...] watchman via right femoral vein with 14 Italian sheath. No evidence of bleeding or hematoma on exam. - Currently in normal sinus rhythm, continue amiodarone 200 mg daily and apixaban 5 mg b.i.d. - Start aspirin 81 mg daily, TTE and chest x-ray in the AM - Monitor on Telemetry - Follows with Dr Russ Malignant neoplasm of breast 05/02/2009 CASTRO (dyspnea on exertion) Social History Tobacco Use Types Packs/Day Years Used Date Smoking Tobacco: Former Cigarettes 0.1 20 0 04/19/1972 - 04/19/1992 Smokeless Tobacco: Never Tobacco Cessation:Counseling Given: Not Answered Alcohol Use Standard Drinks/Week Comments Never 0 [...] often do you attend chur ch or taoism services? Never 01/29/2021 Do you belong to any clubs o r organizations such as religious groups, unions, fraternal or athletic groups, or [...] place to sleep or slept in a custodial (including now)? No 01/29/2021 Comments No Sex and Gender Information Value Date Recorded Sex Assigned at Not on file Legal Sex Female 4:56 AM SWITCH CLEANER Gender Identity Female 04/16/2020 9:15 AM CDT Sexual Orientation Straight 04/16/2020 9: 15 AM CDT Last Filed Vital Signs Vital Sign Reading Time Taken Comments Blood Pressure 134/86 10/25/2024 10:25 AM SWITCH CLEANER Pulse 71 10/25/2024 10:25 AM SWITCH CLEANER Temperature 37 C (98.6 F) 05/05/2022 10:59 AM CDT Respiratory Rate 29 01/02/2022 10:40 AM CDT Oxygen Saturation 97% 10/25/2024 10:25 AM SWITCH CLEANER Inhaled Oxygen Concentration - - Weight 108.9 kg (240 lb) 10/25/2024 10:25 AM SWITCH CLEANER Height 165.1 cm (5' 5 ) 10/25/2024 10:25 AM SWITCH CLEANER Body Mass Index 39.94 10/25/2024 10:25 AM SWITCH CLEANER Plan of Treatment Not on file Medical Devices Implanted Type Area Layboy Tender Device Identifier Shelf Expiration Date Model / Serial / Lot Farideh Craniomaxillof acial [id number] Duramatrix-Onl ay Plus 7x5in Regeneration Membrane Patch Dural - S000 - [id number] Implanted:Qty: 1 on 01/26/2021 by Zak Robison MD at [facility] Graft Right: Cranial [place] Craniomaxillofaci al [id number] 07/07/2023 [id number] / 000 / [id number] Other - See Comments Other - see comments Hip Description:Right hip replac ement 2017 [employer] [id number] Occluder Cardiovascular 20mm Dlv Sys Watchman Flx Strl - [id number] - [id number] Implanted:Qty: 1 on 11/19/2021 by Rajiv Bazan MD PhD at [facility] Other - see comments [employer] Ninoska 10/17/2023 [id number] / [id number] / [id number] Description:Watchman karen [place] Craniomaxillof acial [id number] [place] Neuro Iii 20mm Low Profile Tab Cover Motley Hole - S000 - [id number] Implanted:Qty: 6 on 01/26/2021 by Zak Robison MD at [facility] Plate Right: Cranial Farideh Craniomaxillofaci al [id number] / 000 / 000 [place] Craniomaxillof acial [id number] [employer] 3 1.5mm 4mm Self Drill Axial Stability Screw Bone Latex Free - S000 - [id number] Implanted:Qty: 24 on 01/26/2021 by Zak Robison MD at [facility] Screw Right: Cranial Farideh Craniomaxillofaci al [id number] / 000 / 000 Watchman N/A: Heart Device Karen Watchman Procedure - [id number] Implanted:Qty: 1 on 11/20/2021 by Rajiv Bazan MD PhD at [facility] [employer] [id number] VICE 1-3 PC / / Procedures Procedure Name Priority Date/Time Associated Diagnosis Comments LIPID PANEL Routine 06/24/2023 9:33 AM CDT COMPREHENSIVE METABOLIC PANEL Routine 06/06/2022 [facility] current use of amiodarone POCT HEMOGLOBIN A1C Routine 11/06/2021 3 :48 PM SWITCH CLEANER from Last 3 Months or Most Recently Relevant to Health Maintenance Results * Lipid panel (06/24/2023 9:33 AM CDT) SCRIBED Cholesterol, Total 122 <200 EXTERNAL LAB SCRIBED HDL 41 >40 EXTERNAL LAB SCRIBED LDL 59 <100 EXTERNAL LAB SCRIBED Triglycerides 170 <150 EXTERNAL LAB Blood Madai Provider LAB BLOOD ORDERABLES Edit ed Result - Final EXTERNAL LAB * (ABNORMAL) Comprehensive metabolic panel (06/06/2022) Pathologist [facility] SCRIBED Sodium 145 136 - 145 mmol/L EXTERNAL LAB SCRIBED Potassium 3.8 3.5 - 5.1 mmol/L EXTERNAL LAB SCRIBED Chloride 108(A) 98 - 107 mmol/L EXTERNAL LAB SCRIBED Carbon Dioxide 23 22 - 29 mmol/L EXTERNAL LAB SCRIBED Anion Gap 14 5 - 19 mmol/L EXTERNAL LAB SCRIBED Urea Nitrogen (BUN) 18 7 - 20 mg/dl EXTERNAL LAB SCRIBED Creatinine 0.80 0.57 - 1.11 mg/dl EXTERNAL LAB SCRIBED Glucose 162(A) 74 - 99 mg/dl EXTERNAL LAB SCRIBED Calcium 8.7 8.4 - 10.2 mg/dl EXTERNAL LAB SCRIBED Bilirubin N/A N/A - N/A mg/dl EXTERNAL LAB SCRIBED Plasma Protein N/A N/A - N/A g/dl EXTERNAL LAB SCRIBED Albumin N/A N/A - N/A g/dl EXTERNAL LAB SCRIBED Alkaline Phosphatase N/A N/A - N/A Units/L EXTERNAL LAB SCRIBED Alanine Transaminase (ALT) N/A N/A - N/A Units/L EXTERNAL LAB SCRIBED Aspartate Transaminase (AST) N/A N/A - N/A Units/L EXTERNAL LAB SCRIBED eGFR in N/A N/A - N/A EXTERNAL LAB SCRIBED eGFR in NonAfrican Irish 81 < or = 60 EXTERNAL LAB Blood 06/06/2022 Richard Collier MD LAB BLOOD ORDERABLES Edit ed Result - Final EXTERNAL LAB * (ABNORMAL) POCT hemoglobin A1c (11/06/2021 3:48 PM SWITCH CLEANER) Hgb A1C, POC 6.7(H) 4.0 - 5.6 % [facility] Est Average Gluc POC 146 mg/dL [facility] Comment: The ADA recommends reporting an estimated Average Glucose (eAG) with all Hemoglobin A1c results using the equation derived from a study of 507 normal and diabetic adults. Minority populations were underrepresented and children were not included. (Diabetes Care 31:3150-2908, 2008). The eAG is not equivalent to a fasting glucose. Blood 11/06/2021 3:48 PM SWITCH CLEANER 11/06/2021 3:48 PM SWITCH CLEANER us Rajiv Bazan MD PhD POINT OF CARE TEST ORDERAB LES Final Result Performing Organization Address [facility]/State/[facility] Co de Phone Number [facility] Department [place] [address] from Last 3 Months or Most Recently Relevant to Health Maintenance Additional Health Concerns Infection Onset Date Last Indicated MDR gram neg/ESBL 04/22/2021 04/22/2021 Insurance MEDICARE [employer] MEDICARE FOR LIFE MEDICARE FOR LIFE Advance Directives For more information, please contact: [phone] * Full Code (Latest Code Status on File) Date Activated Date Inactivated Comments 11/19/2021 6:44 PM 11/20/2021 4:46 PM * Full Code Date Activated Date Inactivated Comments 04/21/2021 6:06 AM 04/23/2021 5:55 PM * Full Code Date Activated Date Inactivated Comments 01/26/2021 5:52 AM 02/07/2021 8:57 PM Care Teams Fire Equipment Inspector Helper Relationship Specialty Start Date End Date Aba Song MD [address] [place] [address] PCP - General Emergency Medicine 03/15/20
--- OUTSIDE RECORDS SUMMARY | 2024-10-25 11:14 | XMS_ITS | Clinical Summary ---
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 No evidence of bleeding or hematoma [...] watchman via right femoral vein with 14 Fijian sheath. No evidence of bleeding or hematoma on exam. - Currently in normal sinus rhythm, continue amiodarone 200 mg daily and apixaban 5 mg b.i.d. 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 (Primary Dx); Chronic systolic (congestive) heart failure (HCC); Nonischemic cardiomyopathy (CMS/HCC) (HCC); Hyperlipidemia associated with type 2 diabetes mellitus (HCC); Paroxysmal atrial fibrillation (CMS/HCC) (HCC) from Last 3 Months Surgical History Surgery Date Site/Laterality Comments BREAST SURGERY 05/08/2009 - 06/06/2009 JOINT REPLACEMENT 05/08/2017 - 06/06/2017 TUBAL LIGATION 06/07/1978 - 07/07/1978 BRAIN SURGERY january 26, 2021 Medical History Medical History Date Comments Antithyroid agents causing a dverse effect in therapeutic use Hypothyroidism Post Radio-io dine Treatment - (Added by TW Conv) Personal history of other en docrine, nutritional and metabolic disease History of type 2 di abetes mellitus - (Added by TW Conv) 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 Thyroid adenoma, toxic - (Ad ded by TW Conv) GERD (gastroesophageal reflux disease) 1999 Cancer (CMS/HCC) (HCC) 04/2009 Depression 2000 Diabetes mellitus (HCC) 1994 Hypertension 1994 Menstrual problem 1969 Hyperlipidemia Acid indigestion Anxiety and depression Arthritis Sleep apnea Seizures (HCC) 2020 Chronic kidney disease 2020 Family History Medical History Relation Name Comments Alcohol abuse Brother 1 Corey Carter Heart disease Brother 1 Corey Carter Alcohol abuse Brother 2 Jesus Manuel Shereen Diabetes Brother 2 Jesus Manuel Shereen Drug abuse Brother 2 Jesusm Anuel Shereen Alcohol abuse Daughter Jeanette Gutierrez Alcohol abuse Father Thalia Shereen Cancer Father Thalia Shereen Clotting disorder Father Thalia Shereen Diabetes Father Thalia Shereen Cancer Maternal Grandmother Kaye Hinkle Clotting disorder Mother Elizabeth Shereen Diabetes Mother Elizabeth Shereen Heart disease Mother Elizabeth Shereen Hypertension Mother Elizabeth Shereen Kidney disease Mother Elizabeth Shereen Obesity Mother Elizabeth Shereen Stroke Mother Elizabeth Shereen Cancer Mother's Brother 1 Gene Hinkle Cancer Mother's Brother 2 Teodoro Hinkle Heart attack Mother's Brother 3 Orlando Hinkle Heart disease Mother's Brother 3 Orlando Hinkle Heart disease Mother's Sister Karlyrogelio Luna COPD Sister 1 Kacey Woodruff Clotting disorder Sister 1 Kacey Woodruff Diabetes Sister 1 Kacey Woodruff Cancer Sister 2 Gaye Valerio- Kel Heart disease Sister 2 Gaye Valerio- Begum COPD Sister 3 Rozina Dawna Lucio Heart disease Sister 3 Rozina Toney Naveed Relation Name Status Comments Brother 1 Corey Carter (Age 75) Brother 2 Jesus Manuel Regan (Age 63) Daughter Jeanette Gutierrez Father Thalia Regan (Age 54) Maternal Grandmother Casa Hinkle Mother Elizabeth Regan (Age 73) Mother's Brother 1 Gene Hinkle Alive Mother's Brother 2 Teodoro Hinkle Alive Mother's Brother 3 Orlando Hinkle Alive Mother's Sister Karly Luna Alive Sister 1 Kacey Ranjan Sister 2 Gaye Valerio- Begum Sister 3 Rozina Lucio Social History Tobacco Use Types Packs/Day Years [...] 01/29/2021 How often do you attend chur or spiritism services? Never 01/29/2021 Do you belong to any clubs o r organizations such as orthodoxy groups, unions, fraternal or athletic groups, or [...] place to sleep or slept in a correction (including now)? No 01/29/2021 Comments No Sex and Gender Information Value Date Recorded Sex Assigned at Not on file Legal Sex Female 4:56 AM BATCH ROLLER OPERATOR Gender Identity Female 04/16/2020 9:15 AM CDT Sexual Orientation Straight 04/16/2020 9: 15 AM CDT Obstetrics History Last Filed Vital Signs Vital Sign Reading Time Taken Comments Blood Pressure 134/86 10/25/2024 10:25 AM BATCH ROLLER OPERATOR Pulse 71 10/25/2024 10:25 AM BATCH ROLLER OPERATOR Temperature 37 C (98.6 F) 05/05/2022 10:59 AM CDT Respiratory Rate 29 01/02/2022 10:40 AM CDT Oxygen Saturation 97% 10/25/2024 10:25 AM BATCH ROLLER OPERATOR Inhaled Oxygen Concentration - - Weight 108.9 kg (240 lb) 10/25/2024 10:25 AM BATCH ROLLER OPERATOR Height 165.1 cm (5' 5 ) 10/25/2024 10:25 AM BATCH ROLLER OPERATOR Body Mass Index 39.94 10/25/2024 10:25 AM BATCH ROLLER OPERATOR Plan of Treatment Health Maintenance Due Date Last Done Comments Albumin Creatinine Ratio, Urine 1954 Breast Cancer Screening-Mammogram 1954 Colon Cancer Screening-Colonoscopy 1954 Hepatitis C Screening 1954 Osteoporosis Screening-Bone Density Scan 1954 Dilated Eye Exam 1954 Foot Exam 1954 Hepatitis B Screening 1972 Well Visit 65+ 2019 DTaP/Tdap/Td Vaccine (2 - Td or Tdap) 05/07/2020 05/07/2010 Depression Screening 04/20/2022 04/20/2021 Hemoglobin A1C 05/09/2022 11/06/2021, 04/07, 04/20/2021, Additional history exists Fall Risk Assessment 01/02/2023 01/02/2022 eGFR 06/06/2023 06/06/2022, 04/08, 11/20/2021, Additional history exists Covid-19 Vaccine ( - 2023-2 5 season) 2024 06/04/2021, 12/03/2020, 11/12/2020 Influenza Vaccine (#1) 2024 , 05/31/2020, 06/21/2018, Additional history exists Lipid Panel 06/24/2024 06/24/2023, 01/05, 11/27/2021, Additional history exists Pneumococcal vaccine 65+ (3 of 3 - PCV20 or PCV21) 06/02/2025 06/02/2020, 05/07/2010 Zoster Vaccine Completed 07/13/2019, 03/08, 05/26/2013 Medical Devices Implanted Type Area Hand Edger Device Identifier Shelf Expiration Date Model / Serial / Lot [place] Craniomaxillof acial [id number] Duramatrix-Onl ay Plus 7x5in Regeneration Membrane Patch Dural - S000 - [id number] Implanted:Qty: 1 on 01/26/2021 by Zak Robiosn MD at [facility] Graft Right: Cranial Farideh Craniomaxillofaci al [id number] 07/07/2023 [id number] / 000 / [id number]? [id number] Other - See Comments Other - see comments Hip Description:Right hip replac ement 2017 [employer] Ninoska [id number] Occluder Cardiovascular 20mm Dlv Sys Watchman Flx Strl - [id number] - [id number] Implanted:Qty: 1 on 11/19/2021 by Rajiv Bazan MD PhD at [facility] Other - see comments ICU Metrix 10/17/2023 [id number] / [id number] / [id number] Description:Watchshant jones [place] Craniomaxillof acial [id number] [place] Neuro Iii 20mm Low Profile Tab Cover [place] Hole - S000 - [id number] Implanted:Qty: 6 on 01/26/2021 by Zak Robison MD at [facility] Plate Right: Cranial [place] Craniomaxillofaci al [id number] / 000 / 000 [place] Craniomaxillof acial [id number] [place] Neuro 3 1.5mm 4mm Self Drill Axial Stability Screw Bone Latex Free - S000 - [id number] Implanted:Qty: 24 on 01/26/2021 by Zak Robison MD at [facility] Screw Right: Cranial Farideh Craniomaxillofaci al [id number] / 000 / 000 Watchman N/A: Heart Device Klaudia Watchman Procedure - [id number] Implanted:Qty: 1 on 11/20/2021 by Rajiv Bazan MD PhD at [facility] ICU Metrix WMPERPROCDE VICE 1-3 PC / / Procedures Procedure Name Priority Date/Time Associated Diagnosis Comments LIPID PANEL Routine 06/24/2023 9:33 AM CDT COMPREHENSIVE METABOLIC PANEL Routine 06/06/2022 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 POCT HEMOGLOBIN A1C Routine 11/06/2021 3 :48 PM BATCH ROLLER OPERATOR from Last 3 Months or Most Recently Relevant to Health Maintenance Results * Lipid panel (06/24/2023 9:33 AM CDT) SCRIBED Cholesterol, Total 122 <200 EXTERNAL LAB SCRIBED HDL 41 >40 EXTERNAL LAB SCRIBED LDL 59 <100 EXTERNAL LAB SCRIBED Triglycerides 170 <150 EXTERNAL LAB Blood Madai Provider LAB BLOOD ORDERABLES Edit ed Result - Final EXTERNAL LAB * (ABNORMAL) Comprehensive metabolic panel (06/06/2022) SCRIBED Sodium 145 136 - 145 mmol/L [...] N/A EXTERNAL LAB SCRIBED eGFR in NonAfrican Albanian 81 < or = 60 EXTERNAL LAB Blood 06/06/2022 Richard Collier MD LAB BLOOD ORDERABLES Edit ed Result - Final EXTERNAL LAB * (ABNORMAL) POCT hemoglobin A1c (11/06/2021 3:48 PM BATCH ROLLER OPERATOR) Hgb A1C, POC 6.7(H) 4.0 - 5.6 % [facility] Est Average Gluc POC 146 mg/dL [facility] Comment: The ADA recommends reporting an estimated Average Glucose (eAG) with all Hemoglobin A1c results using the equation derived from a study of 507 normal and diabetic adults. Minority populations were underrepresented and children were not included. (Diabetes Care 31:2920-8540, 2008). The eAG is not equivalent to a fasting glucose. Blood 11/06/2021 3:48 PM BATCH ROLLER OPERATOR 11/06/2021 3:48 PM BATCH ROLLER OPERATOR us Rajiv Bazan MD PhD POINT OF CARE TEST ORDERAB LES Final Result [facility] [place] [address] from Last 3 Months or Most Recently Relevant to Health Maintenance Additional Health Concerns Infection Onset Date Last Indicated MDR gram neg/ESBL 04/22/2021 04/22/2021 Insurance MEDICARE [facility] Address: [address] [address] [employer] MEDICARE FOR LIFE MEDICARE FOR LIFE Advance Directives For more information, please contact: [phone] * Full Code (Latest Code Status on File) Date Activated Date Inactivated Comments 11/19/2021 6:44 PM 11/20/2021 4:46 PM * Full Code Date Activated Date Inactivated Comments 04/21/2021 6:06 AM 04/23/2021 5:55 PM * Full Code Date Activated Date Inactivated Comments 01/26/2021 5:52 AM 02/07/2021 8:57 PM Care Teams Field Merchandiser Relationship Specialty Start Date End Date Aba Song MD [address] [place] [address] PCP - General Emergency Medicine 03/15/20
[2024-10-25 11:49] LABS: Alanine Aminotransferase 21 U/L (6-35); Albumin Level 4.3 g/dL (3.5-5.1); Alkaline Phosphatase 53 U/L (38-126); Anion Gap 10 mmol/L (4-12); Aspartate Amino Transferase 19 U/L (14-36); Bilirubin,Total 1.1 mg/dL (0.2-1.3); Blood Urea Nitrogen 14 mg/dL (7-17); Calcium 9.2 mg/dL (8.4-10.2); Carbon Dioxide 29 mmol/L (22-30); Chloride 104 mmol/L (98-107); Cholesterol 111 mg/dL (0-200); Estimated Glomerular Filt Rate > 60; Glucose 126 mg/dL (65-110); HDL Direct 48 mg/dL; Potassium 4.2 mmol/L (3.4-5.0); Sodium 143 mmol/L (137-145); Triglycerides 124 mg/dL (<150)
[2024-10-25 11:50] LABS: Creatinine Urine 260.7 mg/dL
[2024-10-25 11:56] LABS: MALB Creatinine Ratio 6.5 mg/g (0-30); Microalbumin Urine Random 16.9 mg/L (0-16.7)
[2024-10-25 12:01] LABS: LDL Cholesterol Direct 39 mg/dL
[2024-10-25 12:16] LABS: Hemoglobin A1C 6.5 % (<5.7)
[2024-10-25 12:17] LABS: Vitamin D 25 Hydroxy 64.5 ng/mL
[2024-10-25 12:42] LABS: Vitamin B12 > 1000.0 pg/mL (239-931)
== END 2024-10-25 11:02 | disposition home or self-care (01) ==
PROVIDERS: PCP Emergency Medicine; Referring Provider Internal Medicine Cardiovascular Disease; Visit Provider Nurse Practitioner Family
DX: E11.65 Type 2 diabetes mellitus with hyperglycemia (principal); E11.649 Type 2 diabetes mellitus with hypoglycemia without coma; E04.1 Nontoxic single thyroid nodule; E03.9 Hypothyroidism, unspecified; I10 Essential (primary) hypertension; E78.5 Hyperlipidemia, unspecified; E55.9 Vitamin D deficiency, unspecified; Z79.899 Other long term (current) drug therapy
CPT/HCPCS: 36415; 71046; 80053; 80061; 82043; 82306; 82607; 83036; 84439; 84443

== ENCOUNTER 2024-10-31 07:57 | Outpatient (CLI) | payer MEDICARE, OTHER, SELFPAY ==
--- OUTSIDE RECORDS SUMMARY | 2024-10-31 08:08 | XMS_ITS | Encounter Summary ---
Author Organization [facility] Healthcare Address [address] [place] [address] Care Team Providers Care Tugger Operator Name Role Phone Aba Song MD Primary Care Provide r Encounter Details Date Type Department Care Team (Late st Contact Info) Description 10/27/2024 Orders Only [facility] Medical Group Cardiology [address] [place] [address] ProviderMadai MD [facility] [place] [phone] Social History Tobacco Use Types Packs/Day Years [...] often do you attend chur ch or restoration services? Never 01/29/2021 Do you belong to any clubs o r organizations such as quaker groups, unions, fraternal or athletic groups, or [...] place to sleep or slept in a group home (including now)? No 01/29/2021 Comments No Sex and Gender Information Value Date Recorded Sex Assigned at Not on file Legal Sex Female 4:56 AM CALL CENTER NURSE Gender Identity Female 04/16/2020 9:15 AM CDT Sexual Orientation Straight 04/16/2020 9: 15 AM CDT documented as of this encounter Plan of Treatment Not on file documented as of this encounter Procedures Procedure Name Priority Date/Time Associated Diagnosis Comments LIPID PANEL Routine 10/25/2024 5:53 PM CALL CENTER NURSE documented in this encounter Results * Lipid panel (10/25/2024 5:53 PM CALL CENTER NURSE) SCRIBED Cholesterol, Total 111 <200 EXTERNAL LAB SCRIBED HDL 48 >40 EXTERNAL LAB SCRIBED LDL 39 <100 EXTERNAL LAB SCRIBED Triglycerides 124 <150 EXTERNAL LAB Blood us Historical Provider LAB BLOOD ORDERABLES Edit ed Result - Final EXTERNAL LAB documented in this encounter Visit Diagnoses Not on filedocumented in this encounter Additional Health Concerns Infection Onset Date Last Indicated Resolved Time MDR gram neg/ESBL 04/22/2021 04/22/2021 documented as of this encounter Care Teams Tugger Operator Relationship Specialty Start Date End Date Aba Song MD [address] [place] [address] PCP - General Emergency Medicine 03/15/20 documented as of this encounter
--- OUTSIDE RECORDS SUMMARY | 2024-10-31 08:08 | XMS_ITS | Clinical Summary ---
Author Organization [facility] Address [address] [facility] [place] [address] Phone Care Team Providers Care Chemical Mixer Name Role Phone Zen Cunningham MD Primary Care Provider [phone]- [phone] Allergies Active Allergy Reactions Criticality Noted Date [...] tablet Take 112 mcg by mouth daily numerical control operator. Active metoprolol tartrate (LOPRESSOR) 50 mg tablet [...] - 1-dose 75+ series) 2029 Care Teams Chemical Mixer Relationship Specialty Start Date End Date Zen Cunningham MD [address] [place] [phone] PCP - General Internal Medicine 05/27/17
--- OUTSIDE RECORDS SUMMARY | 2024-10-31 08:08 | XMS_ITS | Referral Summary ---
Author Organization [place] [address] [address] [place] [phone] Care Team Providers Care Auto Body Customizer Name Role Phone Aba Song MD Primary Care Provide r Encounters Date Type Department Care Team Description 10/27/2024 Orders Only [facility] Medical [facility] Cardiology [address] [place] [address] [address] [place] [phone] Madai Tolbert MD 10/25/2024 Orders Only [facility] Health Information Management [address] [place], [place] [phone] Richard Collier MD 10/25/2024 Orders Only [facility] Medical [facility] Cardiology [address] [place] [phone] Madai Tolbert MD 10/25/2024 10:15 AM SLP TEACHER Office Visit [facility] Medical [facility] Cardiology [address] [place] [phone] Richard Collier MD longterm current use of amiodarone (Primary Dx); Chronic [...] Sure Comfort Pen Needle 30 gauge x 16 needle 2 Active insulin glargine (insulin glargine) [...] 112 mcg daily. 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 No evidence of bleeding or hematoma [...] watchman via right femoral vein with 14 Portuguese sheath. No evidence of bleeding or hematoma [...] 01/29/2021 How often do you attend chur [employer] or pentecostalism services? Never 01/29/2021 Do you belong to any clubs o r organizations such as congregational groups, unions, fraternal or athletic groups, or [...] place to sleep or slept in a chcf (including now)? No 01/29/2021 Comments No Sex and Gender Information Value Date Recorded Sex Assigned at Not on file Legal Sex Female 4:56 AM SLP TEACHER Gender Identity Female 04/16/2020 9:15 AM CDT Sexual Orientation Straight 04/16/2020 9: 15 AM CDT Last Filed Vital Signs Vital Sign Reading Time Taken Comments Blood Pressure 134/86 10/25/2024 10:25 AM SLP TEACHER Pulse 71 10/25/2024 10:25 AM SLP TEACHER Temperature 37 C (98.6 F) 05/05/2022 10:59 AM CDT Respiratory Rate 29 01/02/2022 10:40 AM CDT Oxygen Saturation 97% 10/25/2024 10:25 AM SLP TEACHER Inhaled Oxygen Concentration - - Weight 108.9 kg (240 lb) 10/25/2024 10:25 AM SLP TEACHER Height 165.1 cm (5' 5 ) 10/25/2024 10:25 AM SLP TEACHER Body Mass Index 39.94 10/25/2024 10:25 AM SLP TEACHER Plan of Treatment Not on file Medical Devices Implanted Type Area Code Official Device Identifier Shelf Expiration Date Model / Serial / Lot [place] Craniomaxillof acial [id number] Duramatrix-Onl ay Plus 7x5in Regeneration Membrane Patch Dural - S000 - [id number] Implanted:Qty: 1 on 01/26/2021 by Zak Robison MD at [facility] Graft Right: Cranial [place] Craniomaxillofaci al [id number] 07/07/2023 [id number] / 000 / [id number] Other - See Comments Other - see comments Hip Description:Right hip replac ement 2017 [email or web address] [id number] Occluder Cardiovascular 20mm Dlv Sys Watchman Flx Strl - [id number] - [id number] Implanted:Qty: 1 on 11/19/2021 by Rajiv Bazan MD PhD at [facility] Other - see comments [place] marinanow Ninoska 10/17/2023 [id number] / [id number] / [id number] Description:Watchman karen [place] Craniomaxillof acial [id number] [place] Neuro Iii 20mm Low Profile Tab Cover [place] Hole - S000 - [id number] Implanted:Qty: 6 on 01/26/2021 by Zak Robison MD at [facility] Plate Right: Cranial Farideh Craniomaxillofaci al [id number] / 000 / 000 [place]ic Craniomaxillof acial [id number] [place] Neuro 3 1.5mm 4mm Self Drill Axial Stability Screw Bone Latex Free - S000 - [id number] Implanted:Qty: 24 on 01/26/2021 by Zak Robison MD at [facility] Screw Right: Cranial [place] Craniomaxillofaci al [id number] / 000 / 000 Watchman N/A: Heart Device Karen Watchman Procedure - [id number] Implanted:Qty: 1 on 11/20/2021 by Rajiv Bazan MD PhD at [facility] [email or web address] WMPERPROCDE VICE 1-3 PC / / Procedures Procedure Name Priority Date/Time Associated Diagnosis Comments LIPID PANEL Routine 10/25/2024 5:53 PM SLP TEACHER SCAN - RADIOLOGY/IMAGING 10/25/2024 COMPREHENSIVE METABOLIC PANEL Routine 06/06/2022 moth exterminator current use of amiodarone POCT HEMOGLOBIN A1C Routine 11/06/2021 3 :48 PM SLP TEACHER from Last 3 Months or Most Recently Relevant to Health Maintenance Results * Lipid panel (10/25/2024 5:53 PM SLP TEACHER) Pathologist [facility] SCRIBED Cholesterol, Total 111 <200 EXTERNAL LAB SCRIBED HDL 48 >40 EXTERNAL LAB SCRIBED LDL 39 <100 EXTERNAL LAB SCRIBED Triglycerides 124 <150 EXTERNAL LAB Blood Historical Provider LAB BLOOD ORDERABLES Edit ed Result - Final EXTERNAL LAB * SCAN - RADIOLOGY/IMAGING (10/25/2024) Anatomical Region Laterality Modality Other Richard Collier MD Final Res ult * (ABNORMAL) Comprehensive metabolic panel (06/06/2022) Pathologist [facility] SCRIBED Sodium 145 136 - 145 mmol/L [...] N/A EXTERNAL LAB SCRIBED eGFR in NonAfrican Taiwanese 81 < or = 60 EXTERNAL LAB Blood 06/06/2022 Richard Collier MD LAB BLOOD ORDERABLES Edit ed Result - Final EXTERNAL LAB * (ABNORMAL) POCT hemoglobin A1c (11/06/2021 3:48 PM SLP TEACHER) Hgb A1C, POC 6.7(H) 4.0 - 5.6 % [facility] Est Average Gluc POC 146 mg/dL [facility] Comment: The ADA recommends reporting an estimated Average Glucose (eAG) with all Hemoglobin A1c results using the equation derived from a study of 507 normal and diabetic adults. Minority populations were underrepresented and children were not included. (Diabetes Care 31:3706-1114, 2008). The eAG is not equivalent to a fasting glucose. Blood 11/06/2021 3:48 PM SLP TEACHER 11/06/2021 3:48 PM SLP TEACHER Rajiv Bazan MD PhD POINT OF CARE TEST ORDERAB LES Final Result [facility] Department [place] [address] from Last 3 Months or Most Recently Relevant to Health Maintenance Additional Health Concerns Infection Onset Date Last Indicated MDR gram neg/ESBL 04/22/2021 04/22/2021 Insurance MEDICARE FOR LIFE MEDICARE FOR LIFE MEDICARE [facility] FOR LIFE Advance Directives For more information, please contact: [phone] * Full Code (Latest Code Status on File) Date Activated Date Inactivated Comments 11/19/2021 6:44 PM 11/20/2021 4:46 PM * Full Code Date Activated Date Inactivated Comments 04/21/2021 6:06 AM 04/23/2021 5:55 PM * Full Code Date Activated Date Inactivated Comments 01/26/2021 5:52 AM 02/07/2021 8:57 PM Care Teams Auto Body Customizer Relationship Specialty Start Date End Date Aba Song MD [address] [place] [address] PCP - General Emergency Medicine 03/15/20
--- OUTSIDE RECORDS SUMMARY | 2024-10-31 08:08 | XMS_ITS | Clinical Summary ---
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 No evidence of bleeding or hematoma [...] watchman via right femoral vein with 14 Tanzanian sheath. 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 of amiodarone (Primary Dx); Chronic systolic (congestive) heart failure (HCC); Nonischemic cardiomyopathy (CMS/HCC) (HCC); Hyperlipidemia associated with type 2 diabetes mellitus (HCC); Paroxysmal atrial fibrillation (CMS/HCC) (HCC) 10/25/2024 Orders Only [facility] Health Information Management [address] [place], [place] [id number] Richard Collier MD 10/25/2024 Orders Only [facility] Cardiology [address] [place] [address] ProviderMadai MD from Last 3 Months Surgical History Surgery [...] by TW Conv) GERD (gastroesophageal reflux disease) 2000 Cancer (CMS/HCC) (HCC) 04/2009 Depression 2001 Diabetes mellitus (HCC) 1994 Hypertension 1994 Menstrual problem 1970 Hyperlipidemia Acid indigestion Anxiety and depression Arthritis Sleep apnea Seizures (HCC) 2020 Chronic kidney disease 2020 Family History Medical History Relation Name Comments Alcohol abuse Brother 1 Corey Carter Heart disease Brother 1 Corey Carter Alcohol abuse Brother 2 Jesus Manuel Shereen Diabetes Brother 2 Jesus Manuel Shereen Drug abuse Brother 2 Jesus Manuel Shereen Alcohol abuse Daughter Jeanette Gutierrez Alcohol abuse Father Thalia Shereen Cancer Father Thalia Shereen Clotting disorder Father Thalia Shereen Diabetes Father Thalia Shereen Cancer Maternal Grandmother [place] Hinkle Clotting disorder Mother Elizabeth Regan Diabetes Mother Elizabeth Shereen Heart disease Mother Elizabeth Shereen Hypertension Mother Elizabeth Shereen Kidney disease Mother Elizabeth Shereen Obesity Mother Elizabeth Shereen Stroke Mother Elizabeth Shereen Cancer Mother's Brother 1 Gene Hinkle Cancer Mother's Brother 2 Teodoro Hinkle Heart attack Mother's Brother 3 Orlando Hinkle Heart disease Mother's Brother 3 Orlando Hinkle Heart disease Mother's Sister Karly Zamanly COPD Sister 1 Kacey Ranjan Clotting disorder Sister 1 Kacey Ranjan Diabetes Sister 1 Kacey Ranjan Cancer Sister 2 Gaye Simran Teodoro- Begum Heart disease Sister 2 Gaye Simran Te[place]oro- Begum COPD Sister 3 Rozina Lucio Heart disease Sister 3 Rozinadaphne Lucio Relation Name Status Comments Brother 1 Corey Carter (Age 75) Brother 2 Jesus Manuel Regan (Age 63) Daughter Jeanette Gutierrez Father Thalia Regan (Age 54) Maternal Grandmother [place] Hinkle Mother Elizabeth Regan (Age 73) Mother's Brother 1 Gene Hinkle Alive Mother's Brother 2 Teodoro Hinkle Alive Mother's Brother 3 Orlando Hinkle Alive Mother's Sister Karly Zamanly Alive Sister 1 Kacey Ranjan Sister 2 Gaye Simran [place]- Begum Sister 3 Rozina Dawna Lucio Social History Tobacco Use Types Packs/Day [...] often do you attend chur ch or mosque services? Never 01/29/2021 Do you belong to any clubs o r organizations such as jain groups, unions, fraternal or athletic groups, or [...] place to sleep or slept in a senior care (including now)? No 01/29/2021 Comments No Sex and Gender Information Value Date Recorded Sex Assigned at Not on file Legal Sex Female 4:56 AM MASK FORMER Gender Identity Female 04/16/2020 9:15 AM CDT Sexual Orientation Straight 04/16/2020 9: 15 AM CDT Obstetrics History Last Filed Vital Signs Vital Sign Reading Time Taken Comments Blood Pressure 134/86 10/25/2024 10:25 AM MASK FORMER Pulse 71 10/25/2024 10:25 AM MASK FORMER Temperature 37 C (98.6 F) 05/05/2022 10:59 AM CDT Respiratory Rate 29 01/02/2022 10:40 AM CDT Oxygen Saturation 97% 10/25/2024 10:25 AM MASK FORMER Inhaled Oxygen Concentration - - Weight 108.9 kg (240 lb) 10/25/2024 10:25 AM MASK FORMER Height 165.1 cm (5' 5 ) 10/25/2024 10:25 AM MASK FORMER Body Mass Index 39.94 10/25/2024 10:25 AM MASK FORMER Plan of Treatment Health Maintenance Due Date [...] 04/08, 11/20/2021, Additional history exists Covid-19 Vaccine (4 - 2023-2 5 season) 2024 06/04/2021, 12/03/2020, 11/12/2020 Influenza Vaccine (#1) 2024 , 05/31/2020, 06/21/2018, Additional history exists Pneumococcal vaccine 65+ (3 of 3 - PCV20 or PCV21) 06/02/2025 06/02/2020, 05/07/2010 Lipid Panel 10/25/2025 10/25/2024, 06/01/2024, 06/24/2023, Additional history exists Zoster Vaccine Completed 07/13/2019, 03/08, 05/26/2013 Medical Devices Implanted Type Area Field Representatives Director Device Identifier Shelf Expiration Date Model / Serial / Lot Farideh Craniomaxillof acial [id number] Duramatrix-Onl ay Plus 7x5in Regeneration Membrane Patch Dural - S000 - [id number] Implanted:Qty: 1 on 01/26/2021 by Zak Robison MD at [facility] Graft Right: Cranial [place] Craniomaxillofaci al [id number] 07/07/2023 [id number] / 000 / [id number] Other - See Comments Other - see comments Hip Description:Right hip replac ement 2017 [employer] [id number] Occluder Cardiovascular 20mm Dlv Sys Watchman Flx Strl - [id number] - [id number] Implanted:Qty: 1 on 11/19/2021 by Rajiv Bazan MD PhD at [facility] Other - see comments [employer] 10/17/2023 [id number] / [id number] / [id number] Description:Watchman karen Farideh Craniomaxillof acial [id number] Mullen Neuro Iii 20mm Low Profile Tab Cover Juan Hole - S000 - [id number] Implanted:Qty: 6 on 01/26/2021 by Zak Robison MD at [facility] Plate Right: Cranial Farideh Craniomaxillofaci al [id number] / 000 / 000 Farideh Craniomaxillof acial [id number] Mullen Neuro 3 1.5mm 4mm Self Drill Axial Stability Screw Bone Latex Free - S000 - [id number] Implanted:Qty: 24 on 01/26/2021 by Zak Robison MD at [facility] Screw Right: Cranial [place] Craniomaxillofaci al [id number] / 000 / 000 Watchman N/A: Heart Device Karen Watchman Procedure - [id number] Implanted:Qty: 1 on 11/20/2021 by Rajiv Bazan MD PhD at [facility] [employer] [id number] VICE 1-3 PC / / Procedures Procedure Name Priority Date/Time Associated Diagnosis Comments LIPID PANEL Routine 10/25/2024 5:53 PM MASK FORMER SCAN - RADIOLOGY/IMAGING 10/25/2024 COMPREHENSIVE METABOLIC PANEL Routine 06/06/2022 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 life coordinator 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 use of amiodarone POCT HEMOGLOBIN A1C Routine 11/06/2021 3 :48 PM MASK FORMER from Last 3 Months or Most Recently Relevant to Health Maintenance Results * Lipid panel (10/25/2024 5:53 PM MASK FORMER) SCRIBED Cholesterol, Total 111 <200 EXTERNAL LAB SCRIBED HDL 48 >40 EXTERNAL LAB SCRIBED LDL 39 <100 EXTERNAL LAB SCRIBED Triglycerides 124 <150 EXTERNAL LAB Blood Historical Provider LAB BLOOD ORDERABLES Edit ed Result - Final EXTERNAL LAB * SCAN - RADIOLOGY/IMAGING (10/25/2024) Anatomical Region Laterality Modality Other Richard Collier MD Final Res ult * (ABNORMAL) Comprehensive metabolic panel (06/06/2022) SCRIBED [...] N/A EXTERNAL LAB SCRIBED eGFR in NonAfrican Ukrainian 81 < or = 60 EXTERNAL LAB Blood 06/06/2022 Richard Collier MD LAB BLOOD ORDERABLES Edit ed Result - Final EXTERNAL LAB * (ABNORMAL) POCT hemoglobin A1c (11/06/2021 3:48 PM MASK FORMER) Hgb A1C, POC 6.7(H) 4.0 - 5.6 % [facility] Est Average Gluc POC 146 mg/dL [facility] Comment: The ADA recommends reporting an estimated Average Glucose (eAG) with all Hemoglobin A1c results using the equation derived from a study of 507 normal and diabetic adults. Minority populations were underrepresented and children were not included. (Diabetes Care 31:5754-7331, 2008). The eAG is not equivalent to a fasting glucose. Blood 11/06/2021 3:48 PM MASK FORMER 11/06/2021 3:48 PM MASK FORMER Rajiv Bazan MD PhD POINT OF CARE TEST ORDERAB LES Final Result Performing Organization Address [facility] Co de Phone Number [facility] Department [place] [address] from Last 3 Months or Most Recently Relevant to Health Maintenance Additional Health Concerns Infection Onset Date Last Indicated MDR gram neg/ESBL 04/22/2021 04/22/2021 Insurance MEDICARE FOR LIFE MEDICARE FOR LIFE MEDICARE [facility] Address: [address] [address] FOR LIFE Advance Directives For more information, please contact: [phone] * Full Code (Latest Code Status on File) Date Activated Date Inactivated Comments 11/19/2021 6:44 PM 11/20/2021 4:46 PM * Full Code Date Activated Date Inactivated Comments 04/21/2021 6:06 AM 04/23/2021 5:55 PM * Full Code Date Activated Date Inactivated Comments 01/26/2021 5:52 AM 02/07/2021 8:57 PM Care Teams Hotel Sales Manager Relationship Specialty Start Date End Date Aba Song MD [address] [place] [address] PCP - General Emergency Medicine 03/15/20
--- OUTSIDE RECORDS SUMMARY | 2024-10-31 08:08 | XMS_ITS | Clinical Summary ---
Author Organization [facility] Address [address] [place] [address] Care Team Providers Care Geothermal Technician Name Role Phone Unavailable Primary Care Provider Unavailabl e Social History Tobacco Use Types Packs/Day Years Used Date Smoking Tobacco: Never Assessed Comments Unknown Sex and Gender Information Value Date Recorded Sex Assigned at Not on file Legal Sex Female 5:45 PM CDT Gender Identity Not on file Sexual Orientation Not on file Plan of Treatment Health Maintenance Due Date Last Done Comments Colorectal Cancer Screening Colonoscopy (10 Years) 1954 Hepatitis C 1972 DTaP, Tdap and Td Vaccines ( 1 - Tdap) 1973 Mammogram Screening 1994 Zoster Vaccines (1 of 2) 2004 Dexa Scan (General) 2019 Pneumococcal Vaccine: 65+ Ye ars (1 of 1 - PCV) 2019 COVID-19 Vaccine (2023-2 5 season) 2024 Influenza Adult (#1) 2024 RSV Immunization or 60+ Years (1 - 1-dose 75+ series) 2029 Meningococcal B Vaccine Aged Out No l onger eligible based on patient's age to complete this topic Meningococcal Vaccine Aged Out No alex lela eligible based on patient's age to complete this topic RSV Immunizations Under 20 Months Aged Out No longer eligible based on patient's age to complete this topic
--- OUTSIDE RECORDS SUMMARY | 2024-10-31 08:08 | XMS_ITS | Encounter Summary ---
Author Organization [facility] Healthcare Address [address] [place] [address] Care Team Providers Care Emu Farmer Name Role Phone Aba Song MD Primary Care Provide r Encounter Details Date Type Department Care Team (Late st Contact Info) Description 05/11/2019 Telephone [facility] Advanced Medicine Radiation Oncology [address] [facility] [place] [address] Jose Hendricks CMA Social History Tobacco Use Types Packs/Day Years Used Date Smoking Tobacco: Former Comments Unknown Sex and Gender Information Value Date Recorded Sex Assigned at Not on file Legal Sex Female 4:56 AM SUPERVISOR LONG GOODS Gender Identity Female 04/16/2020 9:15 AM CDT Sexual Orientation Straight 04/16/2020 9: 15 AM CDT documented as of this encounter Plan of Treatment Not on file documented as of this encounter Visit Diagnoses Not on filedocumented in this encounter Additional Health Concerns Infection Onset Date Last Indicated Resolved Time MDR gram neg/ESBL 04/22/2021 04/22/2021 documented as of this encounter Care Teams Emu Farmer Relationship Specialty Start Date End Date Aba Song MD [address] [place] [address] PCP - General Emergency Medicine 03/15/20 documented as of this encounter
--- OUTSIDE RECORDS SUMMARY | 2024-10-31 08:08 | XMS_ITS | Encounter Summary ---
Author Organization [facility] Address [address] [place] [address] Phone Care Team Providers Care Lining Cementer Name Role Phone Aba Song MD Primary Care Provide r Reason for Referral * Procedure (Routine) - Closed Specialty Diagnoses / Procedures Referred By Jolene heart Referred To Contact Diagnoses residential current use of amiodarone Procedures Pulmonary Function Test -External Richard Collier MD [address] [address] Phone: tel: fax: Referral ID Status Reason Start Date Expiration Date Visits Re quested Visits Authorized [id number] Closed 05/26/2022 06/25/2023 1 1 Reason for Visit * Procedure (Routine) - Closed Specialty Diagnoses / Procedures Referred By Jolene heart Referred To Contact Diagnoses residential current use of amiodarone Procedures Pulmonary Function Test -External Richard Collier MD [address] [address] Phone: tel: fax: Referral ID Status Reason Start Date Expiration Date Visits Re quested Visits Authorized [id number] Closed 05/26/2022 06/25/2023 1 1 Encounter Details Date Type Department Care Team (Latest Contact Info) Description 06/20/2022 12:39 PM CDT Hospital Encounter [facility] [address] [facility] [address] [place] [address] residential current use of amiodarone [...] often do you attend chur ch or congregational services? Never 01/29/2021 Do you belong to any clubs o r organizations such as rastafari groups, unions, fraternal or athletic groups, or [...] place to sleep or slept in a fpc (including now)? No 01/29/2021 Comments No Sex and Gender Information Value Date Recorded Sex Assigned at Not on file Legal Sex Female 4:56 AM FACILITIES SPECIALIST Gender Identity Female 04/16/2020 9:15 AM CDT Sexual Orientation Straight 04/16/2020 9: 15 AM CDT documented as of this encounter Plan of Treatment Not on file documented as of this encounter Procedures Procedure Name Priority Date/Time Associated Diagnosis Comments PULMONARY FUNCTION TEST (PFT) Routine 06/20/2022 1:44 PM CDT spa concierge current use of amiodarone documented in this encounter Results * Pulmonary Function Test - (06/20/2022 1:44 PM CDT) FVC PRE 2.90 L [facility] FVC %PRE PRED 100 % [facility] FEV1 PRE 2.45 L [facility] FEV1 %PRE PRED 108 % [facility] FEV1/FVC PRE 84.6 % [facility] FRC PL PRE 2.93 L [facility] FRC PL %PRE PRED 103 % [...] documented in this encounter Visit Diagnoses Diagnosis spa concierge current use of amiodarone documented in this encounter Additional Health Concerns Infection Onset Date Last Indicated Resolved Time MDR gram neg/ESBL 04/22/2021 04/22/2021 documented as of this encounter Care Teams Lining Cementer Relationship Specialty Start Date End Date Aba Song MD [address] [place], [place] [id number] PCP - General Emergency Medicine 03/15/20 documented as of this encounter
--- OUTSIDE RECORDS SUMMARY | 2024-10-31 08:08 | XMS_ITS ---
Author Organization [facility] [address] Address [address] [place] [address] Care Team Providers Care Senior Sql Database Developer Name Role Phone Aba Song MD Primary [...] (01/26/2021): Added automatically from request for surgery [id number] roasterman current use of amiodarone 12/19/2020 Chronic anticoagulation [...] Watchman via right femoral vein with 14 German sheath. No evidence of bleeding or hematoma [...] watchman via right femoral vein with 14 German sheath. No evidence of bleeding or hematoma [...]
--- NOTE | 2024-10-31 13:19 | P.PCNPFT_ITS ---
PFT Procedure Performed PFT Procedure Performed Plethysmography (Lung Vol) Diffusing Cap (DLCO) Flow Vol Loop Spirometry w/o Bronchodil PFT Interpretation Lung volumes were assessed using body plethysmography, revealing unremarkable results. Spirometry demonstrated normal expiratory flow rates and a normal FEV 1/FVC ratio of 72%. Lung diffusion capacity is within normal limits at 83% of the predicted value. The flow-volume loop is also unremarkable. No post bronchodilator study was carried out Compared to the previous study in 2022, there has been no significant change in spirometric, lung volumes or lung diffusion capacity measurements. Notably, the lung diffusion capacity has increased by approximately 10% of the predicted value. Impression: Spirometry, lung volumes, and lung diffusion capacity all within the normal range.
== END 2024-10-31 07:58 | disposition home or self-care (01) ==
PROVIDERS: PCP Emergency Medicine; Visit Provider Internal Medicine Cardiovascular Disease
DX: Z79.899 Other long term (current) drug therapy (principal)
CPT/HCPCS: 94375; 94726; 94729

== ENCOUNTER 2024-12-02 09:48 | Outpatient (CLI) | payer MEDICARE, OTHER, SELFPAY ==
--- NOTE | ~2024-12-02 | DEXA_ITS ---
Bone Density Report Name: ELKE CHAO Age: 69 Sex: Female Ethnicity: White Date of : 1955 Indication: postmenopausal; screening for osteoporosis; cancer; Referring Provider: TONJA SONG Study: Bone densitometry was performed. Exam Date: December 02, 2024 Accession number: [id number] Bone Density: Region BMD T-score Z-score Classification AP Spine(L2, L3, L4) 1.044 -0.3 1.9 Normal Femoral Neck (Left) 0.773 -0.7 1.1 Normal Total Hip (Left) 0.992 0.4 1.9 Normal World Health Organization criteria for BMD impression classify patients as: Normal (T-score at or above -1.0), Osteopenia (T-score between -1.0 and -2.5), or Osteoporosis (T-score at or below -2.5). 10-year Fracture Risk: FRAX not reported because: All T-scores for Spine Total, Hip Total, Femoral Neck at or above -1.0 Clinical Information Provided by Patient: Has used the following medications: Vitamin D Has the following medical conditions: Cancer Patient maximum height was 65 Menopause Age: 51 No regular weight bearing exercise Drinks caffeinated beverages Onset of menses at age 13 Number of children 2 Impression: The patient has normal bone mass. Discussion: BONE DENSITY IS ABOVE THE MINIMUM DESIRABLE LEVEL AT ALL SKELETAL SITES TESTED. This patient?s bone mineral density is above the minimum desirable level (T-score -1.0 or better) at all sites measured. The patient should follow a healthful lifestyle (good nutrition with adequate calcium and vitamin D, and appropriate weight-bearing exercise). Follow-Up: Consider repeating this study in 5 years or sooner if there is some new clinical indication. Reported by: SOHAM on 12/02/2024 10:30:00 AM. Reviewed, dictated and finalized at location [facility]
--- OUTSIDE RECORDS SUMMARY | 2024-12-02 10:33 | XMS_ITS | Encounter Summary ---
Author Organization [facility] Healthcare Address [address] [place] [address] Care Team Providers Care Mental Health Assistant Name Role Phone Aba Song MD Primary Care Provide r Encounter Details Date Type Department Care Team (Late st Contact Info) Description 05/11/2019 Telephone [facility] Advanced Medicine Radiation Oncology [address] [facility] [place] [address] Jose Hendricks CMA Social History Tobacco Use Types Packs/Day Years Used Date Smoking Tobacco: Former Comments Unknown Sex and Gender Information Value Date Recorded Sex Assigned at Not on file Legal Sex Female 4:56 AM BAND TACKER Gender Identity Female 04/16/2020 9:15 AM CDT Sexual Orientation Straight 04/16/2020 9: 15 AM CDT documented as of this encounter Plan of Treatment Not on file documented as of this encounter Visit Diagnoses Not on filedocumented in this encounter Additional Health Concerns Infection Onset Date Last Indicated Resolved Time MDR gram neg/ESBL 04/22/2021 04/22/2021 documented as of this encounter Care Teams Mental Health Assistant Relationship Specialty Start Date End Date Aba Song MD [address] [place] [address] PCP - General Emergency Medicine 03/15/20 documented as of this encounter
--- OUTSIDE RECORDS SUMMARY | 2024-12-02 10:33 | XMS_ITS | Clinical Summary ---
Author Organization [facility] Address [address] [place] [address] Phone Care Team Providers Care Delivery Technician Name Role Phone Zen Cunningham MD Primary Care Provider [phone] Allergies Active Allergy Reactions Criticality Noted Date [...] tablet Take 112 mcg by mouth daily metal bumper. Active metoprolol tartrate (LOPRESSOR) 50 mg tablet [...] Colonography Q 5 years 1999 PNEUMOCOCCAL VACCINE 50+ YEARS (1 of 1 - PCV) 10/14/19 05 ZOSTER VACCINE (1 of 2) 2004 OSTEOPOROSIS SCREENING 2019 INFLUENZA VACCINE (#1) 2024 RSV VACCINE (60+ or ) (1 - 1-dose 75+ series) 2029 Care Teams Delivery Technician Relationship Specialty Start Date End Date Zen Cunningham MD [address] [place] [phone] PCP - General Internal Medicine 05/27/17
--- OUTSIDE RECORDS SUMMARY | 2024-12-02 10:34 | XMS_ITS | Referral Summary ---
Author Organization [place] [address] Address [address] [address] Care Team Providers Care Yarn Texturing Machine Operator Name Role Phone Aba Song MD Primary Care Provide r Encounters Date Type Department Care Team Description 10/31/2024 Results Follow-Up [facility] Cardiology [address] [place] [address] [address] [place] [phone] Richard Collier MD 10/27/2024 Orders Only [facility] Cardiology [address] [place] [address] [address] [place] [phone] Madai Tolbert MD 10/25/2024 Orders Only [facility] [address] [place] [address] Richard Collier MD 10/25/2024 Orders Only [facility] Cardiology [address] [place] [address] [phone] Madai Tolbert MD 10/25/2024 10:15 AM IT SYSTEMS ENGINEER Office Visit [facility] Medical Group Cardiology 6810 [facility] [address] [phone] Richard Collier MD keno terminal operator current use of amiodarone (Primary Dx); Chronic systolic (congestive) heart failure (HCC); Nonischemic cardiomyopathy (HCC); Hyperlipidemia associated with type 2 diabetes mellitus (HCC); Paroxysmal atrial fibrillation (HCC) from Last 3 Months Allergies Active Allergy Reactions Criticality Noted Date Comments Adhesive Rash Medium 10/13/2022 Lisinopril Hives High 06/01/2017 Medications ProAir HFA 90 mcg/actuation inhalerIndication s:Acute Asthma Attack Inhale 1 puff as needed 0 Active sertraline (ZOLOFT) 25 mg tabletIndications :depression Take 1 tablet (25 mg total) by mouth every morning 0 Active gabapentin (NEURONTIN) 100 mg capsuleIndication s:Neuropathic Pain Take 1 capsule (100 mg total) by mouth 3 (three) times a day 0 Active Synthroid 112 mcg tabletIndications :hypothyroidism Take 1 tablet (112 mcg total) by mouth nightly 0 Active atorvastatin (LIPITOR) 20 mg tabletIndications :hyperlipidemia Take 1 tablet (20 mg total) by mouth every morning [address] (PROTONIX) 20 mg EC tabletIndications :Stress Ulcer Prophylaxis Take 1 tablet (20 mg total) by mouth every morning 0 Active docusate sodium (COLACE) 100 mg capsuleIndication s:constipation,St ool Softener Take 1 capsule (100 mg total) by mouth 2 (two) times a day 1 Active metFORMIN (GLUCOPHAGE) 1,000 mg tabletIndications :type 2 diabetes mellitus Take 1 tablet (1,000 mg total) by mouth 2 (two) times a day with meals Active cranberry 500 mg capsule Take 500 mg by mouth every morning Active mecobalamin, vitamin B12, (B12 Active) 1,000 mcg tablet,chewableIn dications:Prevent ion of Vitamin B12 Deficiency Take 1,000 mcg by mouth every morning Active amoxicillin 500 mg capsuleIndication s:Prophylaxis, Medical Take 1 tablet/capsule (500 mg total) by mouth as needed Dental work 1 Active Sure Comfort Pen Needle 30 gauge x 5/16 needle 2 Active insulin glargine (insulin glargine) 100 unit/mL vial for injectionIndicati ons:Diabetes Mellitus Inject 50 Units under the skin daily after lunch 2 Active aspirin 325 mg tablet Take 1 tablet (325 mg total) by mouth daily Active FeroSuL 325 mg (65 mg iron) tablet Take 1 tablet (325 mg total) by mouth daily with breakfast 3 Active sacubitriL-valsar sheldon (ENTRESTO) 49-51 mg tabletIndications :chronic heart failure Take 1 tablet by mouth 2 (two) times a day 60 tablet 4 01/27/20 25 Active Ozempic 1 mg/dose (4 mg/3 mL) pen injector injection 4 Active furosemide (LASIX) 20 mg tabletIndications :Chronic systolic congestive heart failure (HCC) Take 1 tablet (20 mg total) by mouth daily 90 tablet 2 4 Active metoprolol tartrate (LOPRESSOR) 25 mg immediate release tablet Take 0.5 tablets (12.5 mg total) by mouth 2 (two) times a day 90 tablet 1 4 06/20/20 25 Active amiodarone (PACERONE) 200 mg tabletIndications :Ventricular Rate Control in Atrial Fibrillation Take 0.5 tablets (100 mg total) by mouth daily 45 tablet 3 4 Active magnesium oxide (MAG-OX) 400 mg (241.3 mg elemental magnesium) tabletIndications :Hypomagnesemia Take 1 tablet (400 mg total) by mouth daily 90 tablet 3 4 Active Active Problems Problem Noted Date Diagnosed [...] (01/26/2021): Added automatically from request for surgery [id number] [facility] current use of amiodarone 12/19/2020 Chronic anticoagulation [...] metoprolol XL prior to discharge. Atrial fibrillation 08/16/2020 Assessment & Plan (11/20/2021 10:50 AM CDT): CHADS2 Vasc risk score of 4 on anticoagulation complicated by fall with subdural hematoma Status post uncomplicated LAAO with 21 mm Watchman via right femoral vein with 14 Greenlandic sheath. No evidence of bleeding or hematoma [...] watchman via right femoral vein with 14 Greenlandic sheath. No evidence of bleeding or hematoma [...] often do you attend chur ch or congregation services? Never 01/29/2021 Do you belong to any clubs o r organizations such as yazidism groups, unions, fraternal or athletic groups, or [...] place to sleep or slept in a assisted (including now)? No 01/29/2021 Comments No Sex and Gender Information Value Date Recorded Sex Assigned at Not on file Legal Sex Female 4:56 AM IT SYSTEMS ENGINEER Gender Identity Female 04/16/2020 9:15 AM CDT Sexual Orientation Straight 04/16/2020 9: 15 AM CDT Last Filed Vital Signs Vital Sign Reading Time Taken Comments Blood Pressure 134/86 10/25/2024 10:25 AM IT SYSTEMS ENGINEER Pulse 71 10/25/2024 10:25 AM IT SYSTEMS ENGINEER Temperature 37 C (98.6 F) 05/05/2022 10:59 AM CDT Respiratory Rate 29 01/02/2022 10:40 AM CDT Oxygen Saturation 97% 10/25/2024 10:25 AM IT SYSTEMS ENGINEER Inhaled Oxygen Concentration - - Weight 108.9 kg (240 lb) 10/25/2024 10:25 AM IT SYSTEMS ENGINEER Height 165.1 cm (5' 5 ) 10/25/2024 10:25 AM IT SYSTEMS ENGINEER Body Mass Index 39.94 10/25/2024 10:25 AM IT SYSTEMS ENGINEER Plan of Treatment Not on file Medical Devices Implanted Type Area Personal Companion Device Identifier Shelf Expiration Date Model / Serial / Lot Farideh Craniomaxillof acial [id number] Duramatrix-Onl ay Plus 7x5in Regeneration Membrane Patch Dural - S000 - [id number] Implanted:Qty: 1 on 01/26/2021 by Zak Robison MD at [facility] Graft Right: Cranial [place] Craniomaxillofaci al [id number] 07/07/2023 [id number] / 000 / [id number] Other - See Comments Other - see comments Hip Description:Right hip replac ement 2017 G-CON [id number] Occluder Cardiovascular 20mm Dlv Sys Watchman Flx Strl - [id number] - [id number] Implanted:Qty: 1 on 11/19/2021 by Rajiv Bazan MD PhD at [facility] Other - see comments [employer] Ninoska 10/17/2023 [id number] / [id number] / [id number] Description:Watchman karen [place] Craniomaxillof acial [id number] [place] Neuro Iii 20mm Low Profile Tab Cover Juan Hole - S000 - [id number] Implanted:Qty: 6 on 01/26/2021 by Zak Robison MD at [facility] Plate Right: Cranial Farideh Craniomaxillofaci al [id number] / 000 / 000 [place] Craniomaxillof acial [id number] [place] Neuro 3 1.5mm 4mm Self Drill Axial Stability Screw Bone Latex Free - S000 - [id number] Implanted:Qty: 24 on 01/26/2021 by Zak Robison MD at [facility] Screw Right: Cranial [place] Craniomaxillofaci al [id number] / 000 / 000 Watchman N/A: Heart Device Karen Watchman Procedure - [id number] Implanted:Qty: 1 on 11/20/2021 by Rajiv Bazan MD PhD at [facility] G-CON WMPERPROCDE VICE 1-3 PC / / Procedures Procedure Name Priority Date/Time Associated Diagnosis Comments LIPID PANEL Routine 10/25/2024 5:53 PM IT SYSTEMS ENGINEER SCAN - RADIOLOGY/IMAGING 10/25/2024 COMPREHENSIVE METABOLIC PANEL Routine 06/06/2022 keno terminal operator current use of amiodarone POCT HEMOGLOBIN A1C Routine 11/06/2021 3 :48 PM IT SYSTEMS ENGINEER from Last 3 Months or Most Recently Relevant to Health Maintenance Results * Lipid panel (10/25/2024 5:53 PM IT SYSTEMS ENGINEER) SCRIBED Cholesterol, Total 111 <200 EXTERNAL LAB SCRIBED HDL 48 >40 EXTERNAL LAB SCRIBED LDL 39 <100 EXTERNAL LAB SCRIBED Triglycerides 124 <150 EXTERNAL LAB Blood Historical Provider LAB BLOOD ORDERABLES Edit ed Result - Final EXTERNAL LAB * SCAN - RADIOLOGY/IMAGING (10/25/2024) Anatomical Region Laterality Modality Other Richard Collier MD Final Res ult * (ABNORMAL) Comprehensive metabolic panel (06/06/2022) Pathologist [facility] SCRIBED Sodium 145 136 - 145 mmol/L [...] N/A EXTERNAL LAB SCRIBED eGFR in NonAfrican Tuvaluan 81 < or = 60 EXTERNAL LAB Blood 06/06/2022 Richard Collier MD LAB BLOOD ORDERABLES Edit ed Result - Final Performing Organization Address City/[facility]/ZIP Co de Phone Number EXTERNAL LAB * (ABNORMAL) POCT hemoglobin A1c (11/06/2021 3:48 PM IT SYSTEMS ENGINEER) Hgb A1C, POC 6.7(H) 4.0 - 5.6 % [facility] Est Average Gluc POC 146 mg/dL [facility] Comment: The ADA recommends reporting an estimated Average Glucose (eAG) with all Hemoglobin A1c results using the equation derived from a study of 507 normal and diabetic adults. Minority populations were underrepresented and children were not included. (Diabetes Care 31:9931-1305, 2008). The eAG is not equivalent to a fasting glucose. Blood 11/06/2021 3:48 PM IT SYSTEMS ENGINEER 11/06/2021 3:48 PM IT SYSTEMS ENGINEER Rajiv Bazan MD PhD POINT OF CARE TEST ORDERAB LES Final Result Performing Organization Address [facility] Co de Phone Number [facility] Department [place] [address] from Last 3 Months or Most Recently Relevant to Health Maintenance Additional Health Concerns Infection Onset Date Last Indicated MDR gram neg/ESBL 04/22/2021 04/22/2021 Insurance MEDICARE FOR LIFE MEDICARE FOR LIFE MEDICARE FOR LIFE Advance Directives For more information, please contact: [phone] * Full Code (Latest Code Status on File) Date Activated Date Inactivated Comments 11/19/2021 6:44 PM 11/20/2021 4:46 PM * Full Code Date Activated Date Inactivated Comments 04/21/2021 6:06 AM 04/23/2021 5:55 PM * Full Code Date Activated Date Inactivated Comments 01/26/2021 5:52 AM 02/07/2021 8:57 PM Care Teams Yarn Texturing Machine Operator Relationship Specialty Start Date End Date Aba Song MD [address] [place] [address] PCP - General Emergency Medicine 03/15/20
--- OUTSIDE RECORDS SUMMARY | 2024-12-02 10:34 | XMS_ITS | Clinical Summary ---
Author Organization [facility] [address] Address [address] [place] [address] Care Team Providers Care Supervisor Furnace Process Name Role Phone Aba Song MD Primary [...] Sure Comfort Pen Needle 30 gauge x 01/20 needle 2 Active insulin glargine (insulin glargine) [...] Body mass index 40.0-44.9, adult ([facility]) 01/26 Chest pressure 05/26/2022 Left [...] 112 mcg daily. Type 2 diabetes mellitus, [facility] long-term current use of insulin [...] (01/26/2021): Added automatically from request for surgery [id number] 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 current use of amiodarone 12/19/2020 Chronic anticoagulation [...] Watchman via right femoral vein with 14 Belgian sheath. No evidence of bleeding or hematoma [...] watchman via right femoral vein with 14 Belgian sheath. No evidence of bleeding or hematoma [...] Department Care Team Description 10/31/2024 Results Follow-Up [facility] Medical Group Cardiology [address] [facility] [address] [place] [phone] Richard Collier MD 10/27/[address] [facility] Medical Group Cardiology [address] [place] [address] [address] [place] [phone] Madai Tolbert MD 10/25/2024 10:15 AM ROOFER APPRENTICE Office Visit [facility] Medical [facility] Cardiology [address] [place] [address] [address] [place] [phone] Richard Collier MD 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 current use of amiodarone (Primary Dx); Chronic systolic (congestive) heart failure (HCC); Nonischemic cardiomyopathy (HCC); Hyperlipidemia associated with type 2 diabetes mellitus (HCC); Paroxysmal atrial fibrillation (HCC) 10/25/2024 Orders Only [facility] [place] Information Management [address] [place] [address] Richard Collier MD 10/25/[address] [facility] Medical Group Cardiology [address] [place] [phone] Provider, MD Madai from Last 3 Months Surgical History Surgery [...] Thyroid adenoma, toxic - (Ad ded by Conv) GERD (gastroesophageal reflux disease) 1999 Cancer (HCC) 04/2009 Depression 2000 Diabetes mellitus (HCC) [...] Orlando Hinkle Heart disease Mother's Sister Karly Jeremy COPD Sister 1 Kacey Woodruff Clotting disorder Sister 1 Kacey Ranjan Diabetes Sister 1 Kacey Woodruff Cancer Sister 2 Gaye Simran Teodoro- Begum Heart disease Sister 2 Gaye Simran Teodoro- Begum COPD Sister 3 Rozina Dawna Lucio Heart disease Sister 3 Rozina Lucio Relation Name Status Comments Brother 1 Corey Carter (Age 75) Brother 2 Jesus Manuel Regan (Age 63) Daughter Jeanette Gutierrez Father Thalia Regan (Age 54) Maternal Grandmother Kaye Hinkle Mother Elizabeth Regan (Age 73) Mother's Brother 1 Dave Hinkle Alive Mother's Brother 2 Teodoro Hinkle Alive Mother's Brother 3 Orlando Hinkle Alive Mother's Sister Karly Luna Alive Sister 1 Kacey Ranjan Sister 2 Gaye Begum Sister 3 Rozina Lucio Social History [...] often do you attend chur ch or judaism services? Never 01/29/2021 Do you belong to any clubs o r organizations such as sikhism groups, unions, fraternal or athletic groups, or [...] place to sleep or slept in a residential (including now)? No 01/29/2021 Comments No Sex and Gender Information Value Date Recorded Sex Assigned at Not on file Legal Sex Female 4:56 AM ROOFER APPRENTICE Gender Identity Female 04/16/2020 9:15 AM CDT Sexual Orientation Straight 04/16/2020 9: 15 AM CDT Obstetrics History Last Filed Vital Signs Vital Sign Reading Time Taken Comments Blood Pressure 134/86 10/25/2024 10:25 AM ROOFER APPRENTICE Pulse 71 10/25/2024 10:25 AM ROOFER APPRENTICE Temperature 37 C (98.6 F) 05/05/2022 10:59 AM CDT Respiratory Rate 29 01/02/2022 10:40 AM CDT Oxygen Saturation 97% 10/25/2024 10:25 AM ROOFER APPRENTICE Inhaled Oxygen Concentration - - Weight 108.9 kg (240 lb) 10/25/2024 10:25 AM ROOFER APPRENTICE Height 165.1 cm (5' 5 ) 10/25/2024 10:25 AM ROOFER APPRENTICE Body Mass Index 39.94 10/25/2024 10:25 AM ROOFER APPRENTICE Plan of Treatment Health Maintenance Due Date [...] 03/08, 05/26/2013 Medical Devices Implanted Type Area Psychiatry Resident Device Identifier Shelf Expiration Date Model / Serial / Lot [place] Craniomaxillof acial [id number] Duramatrix-Onl ay Plus 7x5in Regeneration Membrane Patch Dural - S000 - [id number] Implanted:Qty: 1 on 01/26/2021 by Zak Robison MD at [facility] Graft Right: Cranial Farideh Craniomaxillofaci al [id number] 07/07/2023 [id number] / 000 / [id number] Other - See Comments Other - see comments Hip Description:Right hip replac ement 2017 [employer] Ninoska [id number] Occluder Cardiovascular 20mm Dlv Sys Watchman Flx Strl - [id number] - [id number] Implanted:Qty: 1 on 11/19/2021 by Rajiv Bazan MD PhD at [facility] Other - see comments [employer] 10/17/2023 [id number] / [id number] / [id number] Description:Watchshant jones Farideh Craniomaxillof acial [id number] [place] Neuro Iii 20mm Low Profile Tab Cover Juan Hole - S000 - [id number] Implanted:Qty: 6 on 01/26/2021 by Zak Robison MD at [facility] Plate Right: Cranial Farideh Craniomaxillofaci al [id number] / 000 / 000 [place] Craniomaxillof acial [id number] [place] Neuro 3 1.5mm 4mm Self Drill Axial Stability Screw Bone Latex Free - S000 - [id number] Implanted:Qty: 24 on 01/26/2021 by Zak Robison MD at [facility] Screw Right: Cranial [place] Craniomaxillofaci al [id number] / 000 / 000 Watchman N/A: Heart Device Klaudia Watchman Procedure - [id number] Implanted:Qty: 1 on 11/20/2021 by Rajiv Bazan MD PhD at [facility] T[employer]ster WMPERPROCDE VICE 1-3 PC / / Procedures Procedure Name Priority Date/Time Associated Diagnosis Comments LIPID PANEL Routine 10/25/2024 5:53 PM ROOFER APPRENTICE SCAN - RADIOLOGY/IMAGING 10/25/2024 COMPREHENSIVE METABOLIC PANEL Routine 06/06/2022 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 current use of amiodarone POCT HEMOGLOBIN A1C Routine 11/06/2021 3 :48 PM ROOFER APPRENTICE from Last 3 Months or Most Recently Relevant to Health Maintenance Results * Lipid panel (10/25/2024 5:53 PM ROOFER APPRENTICE) SCRIBED Cholesterol, Total 111 <200 EXTERNAL LAB [...] N/A EXTERNAL LAB SCRIBED eGFR in NonAfrican Haitian 81 < or = 60 EXTERNAL LAB Blood 06/06/2022 Richard Collier MD LAB BLOOD ORDERABLES Edit ed Result - Final EXTERNAL LAB * (ABNORMAL) POCT hemoglobin A1c (11/06/2021 3:48 PM ROOFER APPRENTICE) Hgb A1C, POC 6.7(H) 4.0 - 5.6 % [facility] Est Average Gluc POC 146 mg/dL [facility] Comment: The ADA recommends reporting an estimated Average Glucose (eAG) with all Hemoglobin A1c results using the equation derived from a study of 507 normal and diabetic adults. Minority populations were underrepresented and children were not included. (Diabetes Care 31:7693-3545, 2008). The eAG is not equivalent to a fasting glucose. Blood 11/06/2021 3:48 PM ROOFER APPRENTICE 11/06/2021 3:48 PM ROOFER APPRENTICE Rajiv Bazan MD PhD POINT OF CARE TEST ORDERAB LES Final Result [facility] Department [place] [address] from Last 3 Months or Most Recently Relevant to Health Maintenance Additional Health Concerns Infection Onset Date Last Indicated MDR gram neg/ESBL 04/22/2021 04/22/2021 Insurance MEDICARE [employer] MEDICARE FOR LIFE MEDICARE FOR LIFE Advance Directives For more information, please contact: [phone] * Full Code (Latest Code Status on File) Date Activated Date Inactivated Comments 11/19/2021 6:44 PM 11/20/2021 4:46 PM * Full Code Date Activated Date Inactivated Comments 04/21/2021 6:06 AM 04/23/2021 5:55 PM * Full Code Date Activated Date Inactivated Comments 01/26/2021 5:52 AM 02/07/2021 8:57 PM Care Teams Supervisor Furnace Process Relationship Specialty Start Date End Date Aba Song MD [address] [place] [address] PCP - General Emergency Medicine 03/15/20
--- OUTSIDE RECORDS SUMMARY | 2024-12-02 10:34 | XMS_ITS ---
Author Organization [place] [address] Address [address] [place] [address] Care Team Providers Care Remote Advisor Name Role Phone Aba Song MD Primary [...] (01/26/2021): Added automatically from request for surgery [id number] senior care current use of amiodarone 12/19/2020 Chronic anticoagulation [...] Watchman via right femoral vein with 14 Australian sheath. No evidence of bleeding or hematoma [...] watchman via right femoral vein with 14 Australian sheath. No evidence of bleeding or hematoma [...]
--- OUTSIDE RECORDS SUMMARY | 2024-12-02 10:34 | XMS_ITS | Continuity of Care Document ---
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 Medication Details Route Status Patient Instructions Prescription Expires Prescription Number Last Dispense Date Ordering Provider Order Date Order Qty Source amiodarone [Hemal] 200 mg tablet See Instruct ions, Oral, Daily, # 90 EA, 1 total refill(s ), Hard Stop Oral (given by mouth) Complet ed 07/12/2024 4 2023 90.0 Ambulat ory Pharmac y amiodarone [Taro] 200 mg tablet See Instruct ions, # 45 EA, 3 total refill(s ), Hard Stop Ordered 07/11/2025 5 2024 45.0 Ambulat ory Pharmac y atorvastati n 20 mg tablet 20 mg, Oral, Daily, # 90 EA, 2 total refill(s ), Hard Stop Oral (given by mouth) Discont inued 11/30/2023 3 2023 90.0 Ambulat ory Pharmac y atorvastati n 20 mg tablet 20 mg, Oral, Daily, # 90 EA, 2 total refill(s ), Hard Stop Oral (given by mouth) Ordered 08/22/2025 5 2024 90.0 Ambulat ory Pharmac y atorvastati n 20 mg tablet 20 mg, Oral, Daily, # 90 EA, 2 total refill(s ), Hard Stop Oral (given by mouth) Discont inued 08/22/2024 4 2023 90.0 Ambulat ory Pharmac y Baqsimi 3 mg nasal powder [2EA] See Instruct ions, # 2 EA, 4 total refill(s ), Hard Stop Complet ed 11/02/2024 4 2024 2.0 Ambulat ory Pharmac y empaglifloz in 25 mg oral tablet TAKE ONE TABLET IN THE MORNING, # 90 EA, 2 total refill(s ), Acute Complet ed 06/09/2023 2 2022 90.0 Ambulat ory Pharmac y ergocalcife rol 1.25 mg (50,000 units) capsule See Instruct ions, # 14 EA, 0 total refill(s ), Hard Stop Ordered 02/10/2025 4 2023 14.0 Ambulat ory Pharmac y ferrous sulfate 325 mg tablet See Instruct ions, # 180 EA, 1 total refill(s ), Acute Complet ed 12/10/2023 3 2023 180.0 Ambulat ory Pharmac y ferrous sulfate 325 mg tablet 325 mg, Oral, Daily, # 90 EA, 3 total refill(s ), Hard Stop Oral (given by mouth) Ordered 06/13/2025 5 2024 90.0 Ambulat ory Pharmac y ferrous sulfate 325 mg tablet 325 mg, Oral, Daily, # 90 EA, 3 total refill(s ), Hard Stop Oral (given by mouth) Complet ed 03/24/2024 4 2023 90.0 Ambulat ory Pharmac y fluconazole 150 mg tablet See Instruct ions, # 2 EA, 0 total refill(s ), Hard Stop Complet ed 05/21/2024 4 2023 2.0 Ambulat ory Pharmac y fluconazole 150 mg tablet See Instruct ions, # 2 EA, 1 total refill(s ), Hard Stop Discont inued 05/18/2024 4 2023 2.0 Ambulat ory Pharmac y fluticasone 50 mcg/inh nasal spray [16g] 50 mcg, Nostril- Both, BID, # 48 g, 0 total refill(s ), Soft Stop Nostri l-Both (into the nose) Ordered 5 2024 48.0 Ambulat ory Pharmac y Freestyle 28g lancets [100EA] See Instruct ions, # 200 EA, 1 total refill(s ), Hard Stop Complet ed 03/24/2024 3 2023 200.0 Ambulat ory Pharmac y freestyle lite (glucose) test strip [50EA] See Instruct ions, # 200 EA, 3 total refill(s ), Hard Stop Complet ed 03/24/2024 4 2023 200.0 Ambulat ory Pharmac y furosemide 20 mg tablet See Instruct ions, # 90 EA, 1 total refill(s ), Hard Stop Ordered 12/20/2024 4 2023 90.0 Ambulat ory Pharmac y furosemide 20 mg tablet See Instruct ions, # 90 EA, 1 total refill(s ), Acute Complet ed 12/22/2023 3 2023 90.0 Ambulat ory Pharmac y furosemide 20 mg tablet 20 mg, Oral, Daily, # 90 EA, 2 total refill(s ), Hard Stop Oral (given by mouth) Ordered 06/13/2025 5 2024 90.0 Ambulat ory Pharmac y furosemide 20 mg tablet 20 mg, Oral, Daily, # 90 EA, 1 total refill(s ), Hard Stop Oral (given by mouth) Complet ed 06/14/2024 4 2023 90.0 Ambulat ory Pharmac y gabapentin 100 mg capsule 100 mg, Oral, TID, # 270 EA, 2 total refill(s ), Hard Stop Oral (given by mouth) Discont inued 11/09/2024 5 2024 270.0 Ambulat ory Pharmac y gabapentin 100 mg capsule 100 mg, Oral, TID, # 270 EA, 2 total refill(s ), Hard Stop Oral (given by mouth) Complet ed 07/26/2024 4 2023 270.0 Ambulat ory Pharmac y gabapentin 100 mg capsule 100 mg, Oral, TID, # 270 EA, 2 total refill(s ), Hard Stop Oral (given by mouth) Complet ed 03/24/2024 4 2023 270.0 Ambulat ory Pharmac y gabapentin 100 mg capsule See dose instruct ions in comments , # 270 EA, 1 total refill(s ), Acute Complet ed 09/08/2023 3 2023 270.0 Ambulat ory Pharmac y gabapentin 300 mg capsule 300 mg, Oral, # 270 EA, 2 total refill(s ), Soft Stop Oral (given by mouth) Ordered 5 2024 270.0 Ambulat ory Pharmac y glimepiride 2 mg tablet See Instruct ions, Oral, # 180 EA, 3 total refill(s ), Hard Stop Oral (given by mouth) Complet ed 11/02/2024 4 2024 180.0 Ambulat ory Pharmac y icosapent ethyl 1 g capsule 2 g, Oral, BID, # 360 EA, 1 total refill(s ), Hard Stop Oral (given by mouth) Discont inued 11/11/2024 4 2024 360.0 Ambulat ory Pharmac y icosapent ethyl 1 g capsule 2 g, Oral, # 360 EA, 1 total refill(s ), Soft Stop Oral (given by mouth) Ordered 5 2024 360.0 Ambulat ory Pharmac y insulin glargine (Lantus SoloStar) 100 units/mL [3mL] 65 unit(s), SubCutan eous, # 60 mL, 3 total refill(s ), Soft Stop SubCut aneous (under the skin) Ordered 5 2024 60.0 Ambulat ory Pharmac y Jardiance 10 mg tablet See Instruct ions, Oral, # 90 EA, 1 total refill(s ), Hard Stop Oral (given by mouth) Discont inued 05/18/2024 4 2023 90.0 Ambulat ory Pharmac y Lantus SoloStar glargine 100 units/mL [3mL] See dose instruct ions in comments , # 45 mL, 1 total refill(s ), Acute Complet ed 12/09/2023 3 2023 45.0 Ambulat ory Pharmac y Lantus SoloStar glargine 100 units/mL [3mL] See Instruct ions, # 60 mL, 3 total refill(s ), Hard Stop Complet ed 11/02/2024 5 2024 60.0 Ambulat ory Pharmac y Lantus SoloStar glargine 100 units/mL [3mL] 55 unit(s), SubCutan eous, every evening, # 45 mL, 1 total refill(s ), Hard Stop SubCut aneous (under the skin) Complet ed 03/24/2024 3 2023 45.0 Ambulat ory Pharmac y levothyroxi ne (Synthroid) 112 mcg tablet 112 mcg, Oral, Daily, # 90 EA, 1 total refill(s ), Hard Stop Oral (given by mouth) Discont inued 11/11/2024 5 2024 90.0 Ambulat ory Pharmac y levothyroxi ne (Synthroid) 112 mcg tablet 112 mcg, Oral, Daily, # 90 EA, 1 total refill(s ), Hard Stop Oral (given by mouth) Discont inued 07/12/2024 4 2023 90.0 Ambulat ory Pharmac y levothyroxi ne (Synthroid) 112 mcg tablet 112 mcg, Oral, Daily, # 90 EA, 2 total refill(s ), Hard Stop Oral (given by mouth) Complet ed 03/24/2024 4 2023 90.0 Ambulat ory Pharmac y levothyroxi ne (Synthroid) 112 mcg tablet 112 mcg, Oral, # 90 EA, 1 total refill(s ), Soft Stop Oral (given by mouth) Ordered 5 2024 90.0 Ambulat ory Pharmac y losartan 25 mg tablet 25 mg, Oral, Daily, # 90 EA, 1 total refill(s ), Hard Stop Oral (given by mouth) Ordered 01/10/2025 4 2023 90.0 Ambulat ory Pharmac y losartan 25 mg tablet See dose instruct ions in comments , # 90 EA, 1 total refill(s ), Acute Complet ed 12/22/2023 3 2023 90.0 Ambulat ory Pharmac y losartan 25 mg tablet 25 mg, Oral, Daily, # 90 EA, 1 total refill(s ), Hard Stop Oral (given by mouth) Complet ed 07/12/2024 4 2023 90.0 Ambulat ory Pharmac y magnesium oxide 400 mg tablet See Instruct ions, # 90 EA, 1 total refill(s ), Acute Complet ed 07/06/2023 3 2022 90.0 Ambulat ory Pharmac y magnesium oxide 400 mg tablet See Instruct ions, # 90 EA, 3 total refill(s ), Hard Stop Discont inued 08/08/2024 4 2023 90.0 Ambulat ory Pharmac y magnesium oxide 400 mg tablet 400 mg, Oral, Daily, # 90 EA, 3 total refill(s ), Hard Stop Oral (given by mouth) Ordered 08/01/2025 5 2024 90.0 Ambulat ory Pharmac y metFORMIN 500 mg oral tablet, extended release TAKE TWO TABLETS BY MOUTH TWICE A DAY DIRECTED , # 360 EA, 1 total refill(s ), Acute Complet ed 12/08/20232023 360.0 Ambulat ory Pharmac y metFORMIN XR 500 mg/24 hour tablet See Instruct ions, Take 2 tablets (1000mg total) by mouth twice daily., # 360 EA, 0 total refill(s ), Soft Stop Ordered 5 2024 360.0 Ambulat ory Pharmac y metFORMIN XR 500 mg/24 hour tablet 1000 mg, Oral, BID, # 360 EA, 1 total refill(s ), Hard Stop Oral (given by mouth) Discont inued 05/18/2024 4 2023 360.0 Ambulat ory Pharmac y metFORMIN XR 500 mg/24 hour tablet 1000 mg, Oral, BID, # 360 EA, 1 total refill(s ), Hard Stop Oral (given by mouth) Discont inued 11/08/2024 2024 360.0 Ambulat ory Pharmac y metFORMIN XR 500 mg/24 hour tablet 1000 mg, Oral, BID, # 360 EA, 1 total refill(s ), Hard Stop Oral (given by mouth) Complet ed 03/24/2024 3 2023 360.0 Ambulat ory Pharmac y metoprolol tartrate 25 mg tablet See Instruct ions, # 90 EA, 1 total refill(s ), Acute Complet ed 12/22/2023 3 2023 90.0 Ambulat ory Pharmac y metoprolol tartrate 25 mg tablet See Instruct ions, # 90 EA, 1 total refill(s ), Hard Stop Discont inued 06/21/2024 4 2023 90.0 Ambulat ory Pharmac y metoprolol tartrate 25 mg tablet See Instruct ions, # 90 EA, 1 total refill(s ), Hard Stop Ordered 06/20/2025 5 2024 90.0 Ambulat ory Pharmac y metoprolol tartrate 25 mg tablet 12.5 mg, 0, 0, # 90 EA, 1 total refill(s ), Hard Stop Complet ed 06/14/2024 4 2023 90.0 Ambulat ory Pharmac y Ozempic 4 mg/3 mL inj-pen [1pen/3mL] See Instruct ions, SubCutan eous, # 3 mL, 11 total refill(s ), Hard Stop Notes: refriger ate SubCut aneous (under the skin) Discont inued 06/10/2024 4 2023 3.0 Ambulat ory Pharmac y pantoprazol e EC 20 mg tablet See Instruct ions, # 90 EA, 1 total refill(s ), Acute Complet ed 09/02/2023 3 2022 90.0 Ambulat ory Pharmac y pantoprazol e EC 20 mg tablet 20 mg, Oral, every morning, # 90 EA, 2 total refill(s ), Soft Stop Oral (given by mouth) Ordered 5 2024 90.0 Ambulat ory Pharmac y pantoprazol e EC 20 mg tablet 20 mg, Oral, every morning, # 90 EA, 2 total refill(s ), Hard Stop Oral (given by mouth) Discont inued 11/11/2024 4 2024 90.0 Ambulat ory Pharmac y pantoprazol e EC 20 mg tablet 20 mg, Oral, every morning, # 90 EA, 2 total refill(s ), Hard Stop Oral (given by mouth) Discont inued 03/07/2024 4 2023 90.0 Ambulat ory Pharmac y sacubitril- valsartan 49 mg-51 mg tablet = 1 tab(s), Oral, BID, # 180 EA, 3 total refill(s ), Hard Stop Oral (given by mouth) Ordered 01/26/2025 5 2024 180.0 Ambulat ory Pharmac y semaglutide (2mg dose) 8mg/3mL inj-pen [3 mL] See Instruct ions, # 3 mL, 11 total refill(s ), Hard Stop Notes: refriger ate Ordered 05/17/2025 5 2024 3.0 Ambulat ory Pharmac y sertraline 25 mg tablet See dose instruct ions in comments , # 90 EA, 1 total refill(s ), Acute Complet ed 09/02/2023 3 2022 90.0 Ambulat ory Pharmac y sertraline 25 mg tablet 25 mg, Oral, Daily, # 90 EA, 2 total refill(s ), Soft Stop Oral (given by mouth) Ordered 5 2024 90.0 Ambulat ory Pharmac y sertraline 25 mg tablet 25 mg, Oral, Daily, # 90 EA, 2 total refill(s ), Hard Stop Oral (given by mouth) Discont inued 11/11/2024 4 2024 90.0 Ambulat ory Pharmac y sertraline 25 mg tablet 25 mg, Oral, Daily, # 90 EA, 2 total refill(s ), Hard Stop Oral (given by mouth) Discont inued 03/07/2024 4 2023 90.0 Ambulat ory Pharmac y Sure Comfort pen needle 30g 8mm [100] See Instruct ions, # 100 EA, 3 total refill(s ), Hard Stop Complet ed 03/24/2024 4 2023 100.0 Ambulat ory Pharmac y Sure Comfort pen needle 30g 8mm [100] See dose instruct ions in comments , # 100 EA, 1 total refill(s ), Acute Complet ed 05/04/2023 3 2022 100.0 Ambulat ory Pharmac y Sure Comfort pen needle 30g 8mm [100] See Instruct ions, # 100 EA, 3 total refill(s ), Hard Stop Discont inued 04/27/2023 3 2022 100.0 Ambulat ory Pharmac y Sure Comfort pen needle 30g 8mm [100] See Instruct ions, # 100 EA, 3 total refill(s ), Hard Stop Ordered 05/17/2025 5 2024 100.0 Ambulat ory Pharmac y Trulicity Pen 3 mg/0.5 mL [4EA=2mL] See dose instruct ions in comments , # 2 mL, 4 total refill(s ), Acute Complet ed 12/08/2023 3 2023 2.0 Ambulat ory Pharmac y Trulicity Pen 3 mg/0.5 mL [4EA=2mL] See Instruct ions, # 6 mL, 1 total refill(s ), Hard Stop Complet ed 03/24/2024 3 2023 6.0 Ambulat ory Pharmac y Trulicity Pen 4.5 mg/0.5 mL [4EA=2mL] See Instruct ions, # 6 mL, 1 total refill(s ), Hard Stop Notes: refriger ate Discont inued 06/10/2024 4 2023 6.0 Ambulat ory Pharmac y U-300 (conc) Toujeo Max glargine 300 units/mL [3mL] See Instruct ions, # 15 mL, 1 total refill(s ), Hard Stop Complet ed 07/26/2024 3 2023 15.0 Ambulat ory Pharmac y Allergies, Adverse Reactions, Alerts Combined list of allergies from Department of Defense and Veterans Affairs facilities. It does not include entries that were removed or entered in error. Substance Category Reaction Severity Reaction type Status Date Reported Comments Source lisinopril Propensity to adverse reactions to drug Rash Active 9 Unknown Organizatio n Immunizations Combined list of available immunizations from the Department of Defense and Veterans Affairs facilities. Immunization Series Date Given Administered By Site Reaction Lot Number CVX Code Drug Tester [employer] Status Comments Source RSV vaccine, preF A-preF B, recombinant 2023 MEL KHANON Shoul pranav, left (delt oid) [id number] [employer] complet ed RSV vaccine, preF A-preF B, recombina nt 08/09/24 Given 0055C-3 [facility] zoster vaccine, inactivated 2018 TRANSCR IBED 187 complet ed zoster vaccine, inactivat ed 03/26/19 Given Ambulat ory Pharmac y influenza, injectable, quadrivalent- pf 2017 zzLef t Arm [id number] Seq[employer] complet ed influenza , injectabl e, quadrival ent-pf 06/21/18 Given Ambulat ory Pharmac y Influenza, inj, MDCK, quadrivalent- pf 2016 zzLef t Arm [id number] [employer] complet ed Influenza , inj, MDCK, quadrival ent-pf 07/22/17 Given Ambulat ory Pharmac y influenza, seasonal, injectable-pf 2013 zzLef t Arm [id number] 140 Nov[employer] complet ed influenza , seasonal, injectabl e-pf 06/21/14 Given Ambulat ory Pharmac y influenza, seasonal, injectable-pf 2012 zzLef t Arm [id number] 140 sanofi pasteur complet ed influenza , seasonal, injectabl e-pf 07/15/13 Given Ambulat ory Pharmac y zoster vaccine live 2012 zzLef t Arm [id number] [employer] complet ed zoster vaccine live 05/26/13 Given Ambulat ory Pharmac y influenza, seasonal, injectable-pf 2011 zzLef t Arm [id number] sanofi pasteur complet ed influenza , seasonal, injectabl e-pf 06/28/12 Given Ambulat ory Pharmac y influenza virus vaccine,split 2009 zzLef t Arm [id number] CSL Behring complet ed influenza virus vaccine,s plit 07/24/10 Given Ambulat ory Pharmac y tetanus, diphtheria, acellular pertu is 2009 zzLef t Arm [id number] 115 Glax[employer]M [employer] complet ed tetanus, diphtheri a, acellular pertussis 05/07/10 Given Ambulat ory Pharmac y pneumococcal polysaccharid e, 23 valent 2009 zzLef t Arm [id number] [employer]ck [employer] complet ed pneumococ polly polysacch aride, 23 valent 05/07/10 Given Ambulat ory Pharmac y Results Combined list of recent chemistry, hematology and other laboratory results from Department of Defense and Veterans Affairs, ranging from 15 months to all on record, depending upon the facility. Order Name Results Value Reference Range Date Interpretation Specimen Comments Source Chemistry LDL 59 mg/dL 100 - 130 06/24 L Interpretive Data: AGES 0-19: Desirable: < 110 mg/dL Borderline High: 110-129 mg/dL High: >/= 130 mg/dL ADULTS: Desirable: <100 mg/dL Near/above optimal: 100-130 mg/dL Borderline High: 131-159 mg/dL High: 160-189 mg/dL Very High: 190 mg/dL - [facility] Chemistry Chol/HDL 3 mg/dL 06/24-[address] [place] [address] Chemistry Cholesterol Total 122 mg/dL 06/24 N Interpretive Data: According to the [place] [employer]: AGES 0-19: Desirable: < 170 mg/dL Borderline High: 170-199 mg/dL High Blood Cholesterol: >/= 200 mg/dL ADULTS: Desirable < 200 mg/dL Borderline High: 200-239 mg/dL High Blood Cholesterol: >/= 240 mg/dL -3 [facility] Chemistry HDL Cholesterol 41 mg/dL 40 - 59 06/24 N Interpretive Data: HDL (HIGH DENSITY LIPOPROTEIN) : ADULTS: Low: < 40 mg/dL High: >/= 60 mg/dL AGES 0 -19: Low: < 40 mg/dL Borderline Low: 40 - 45 mg/dL Acceptable: > 45 mg/dL -[address] [place] [address] Chemistry Triglycerid es 170 mg/dL 7 - 149 06/24 H Interpretive Data: AGES 0-9: Desirable: < 75 mg/dL Borderline High: 75-99 mg/dL High: >/= 100 mg/dL AGES 10-19: Desirable: < 90 mg/dL Borderline High: 90-129 mg/dL High: >/= 130 mg/dL ADULTS: Desirable: < 150 mg/dL Borderline High: 150-199 mg/dL High: >/= 240 mg/dL Very High: >/= 500 mg/dL -[address] [place] [address] Chemistry LDL/HDL 1 06/24-[address] [place] [address] Chemistry TSH 1.920 mIU/L 0.270 - 4.200 06/24 N Interpretive Data: Recommend: TPO/Thyroper oxidase Antibody when TSH result is > 4.2 uIU/mL [id number]-U SAFSA EPILAB Chemistry Ur Microalbumi n 11 mg/L 06/24 N Interpretive Data: To minimize intra-indivi dual variation, analysis of three random urine samples collected over the course of a week has also been recommended. 5A-[address] [place] [address] Chemistry Ur Creat 156 mg/dL 06/24 0055A-[address] [place] [address] Chemistry Ur Microalb/Ur Creat Ratio 7 mg/gCr 06/24 N 0055A-[address] [place] [address] Chemistry Chloride 108 mmol/L 98 - 107 06/24 H 5A-[address] [place] [address] Chemistry Calcium 9.3 mg/dL 8.4 - 10.2 06/24 N 0055A-[address] [place] [address] Chemistry BUN/Creat Ratio 16 mg/dL 12 - 20 06/24 N 0055A-[address] [place] [address] Chemistry CO2 25 mmol/L 22 - 29 06/24 N 0055A-[address] [place] [address] Chemistry Creatinine Level 0.80 mg/dL 0.57 - 1.11 06/24 N 0055A-[address] [place] [address] Chemistry Protein Total 7.2 g/dL 6.4 - 8.3 06/24 N 5A-[address] [place] [address] Chemistry Sodium 144 mmol/L 136 - 145 06/24 N 0055A-[address] [place] [address] Chemistry Potassium Lvl 3.9 mmol/L 3.5 - 5.1 06/24 N 5A-[address] [place] [address] Chemistry Glucose Lvl 180 mg/dL 74 - 99 06/24 H -[address] [place] [address] Chemistry Albumin 3.90 g/dL 3.50 - 5.20 06/24 N 5A-[address] [place] [address] Chemistry AGAP 11.00 0.00 - 15.00 06/24 N - [address] [place] [address] Chemistry Bilirubin Total 1.6 mg/dL 0.2 - 1.2 06/24 H [address] [place] [address] Chemistry AST 20 U/L 5 - 34 06/24 N [address] [place] [address] Chemistry ALT 25 U/L 5 - 55 06/24 N -[address] [place] [address] Chemistry Alk Phos 57 U/L 40 - 150 06/24 N [address] [place] [address] Chemistry BUN 13 mg/dL 7 - 20 06/24 N [address] [place] [address] Chemistry eAvg Glucose 169 mg/dL 06/[address] [place] [address] Chemistry Hemoglobin A1c 7.5 % 4.0 - 5.6 06/24 H Interpretive Data: Normal: 4.0 - 5.6% Increased Risk: 5.7 - 6.4% Diabetic Range: 6.5% For patients without diabetes, the normal range for the hemoglobin A1c test is between 4% and 5.6%. Hemoglobin A1c levels between 5.7% and 6.4% indicate increased risk of diabetes, and levels of 6.5% or higher indicate diabetes. Because studies have repeatedly shown that iyc-jv-kswcy ol diabetes results in complication s from the disease, the goal for people with diabetes is a hemoglobin A1c less than 7%. The higher the hemoglobin A1c, the higher the risks of developing complication s related to diabetes. If confirmation is needed, consider recalling the patient and ordering Hemoglobin Electrophore sis. 005-[address] [place] [address] Chemistry eGFR CKD EPI 80 mL/min /1.73_ m2 06/24 Interpretive Data: Estimated Glomerular Filtration Rate (eGFR) calculated using the 2020 Chronic Kidney Disease-Epid emiology (CKD-EPI) Collaboratio n creatinine equation; units of measure are mL/min/1.73 m2. Results are only valid for adults (>=18 years) whose serum creatinine is in steady state. eGFR calculations are not valid for patients with acute kidney injury and for patients on dialysis. Creatinine-b ased estimates of kidney function may also be inaccurate in patients with reduced creatinine generation due to decreased muscle mass (e.g., malnutrition , severe hypoalbumine leigh, sarcopenia, chronic neuromuscula r disease, amputations, severe heart failure or liver disease) and in patients with increased creatinine generation due to increased muscle mass (e.g., muscle builders, anabolic steroids) or increased dietary intake. CKD is diagnosed based on abnormalitie s of kidney structure or function, present for >3 months, with implications for health and disease. CKD is classified and staged based on cause, eGFR and albuminuria (quantified as urine albumin to creatinine ratio). An eGFR >60 mL/min/1.73 m2 in the absence of increased urine albumin excretion or structural abnormalitie s does not CKD. eGFR provides only an estimate of measured GFR within +/- 30% for most patients. As mentioned, nutritional status and muscle mass, among many factors, may lead to inaccuracy in the estimate. Consider ordering the creatinine-c ystatin C panel if better accuracy is needed for clinical decision-jolynn ing. eGFR (mL/min/1.73 m2) CKD stage Interpretati on Normal 60-89 Mild decrease 45-59 Mild to moderate decrease 30-44 Moderate to severe decrease 15-29 Severe decrease <15 Kidney failure -[address] [place] [address] Hematology Hematocrit 40 % 34 - 46 03/17 N 005-[address] [place] [address] Hematology Hemoglobin 13.4 g/dL 11.0 - 15.0 03/17 N 0055A-[address] [place] [address] Hematology MCH 32 pg 28 - 33 03/17 N -[address] [place] [address] Hematology MCHC 33.3 g/dL 33.0 - 36.5 03/[address] [place] [address] Hematology MCV 96 fL 80 - 97 03/[address] [place] [address] MPV 10.7 fL 7.4 - 10.4 03/[address] [place] [address] Platelets 158.0 x10^3/ mcL 150.0 - 450.0103 03/[address] [place] [address] RBC 4.2 x10^6/ mcL 3.6 - 5.0106 03/[address] [place] [address] RDW 13.6 % 11.0 - 14.9 03/[address] [place] [address] WBC 5.4 x10^3/ mcL 4.0 - 11.0103 03/[address] [place] [address] Eos Absolute 0.1 x10^3/ mcL 0.0 - 0.7103 03/[address] [place] [address] Baso Absolute 0.0 x10^3/ mcL 0.0 - 0.1103 03/[address] [place] [address] Basophil % Auto 0.6 % 0.0 - 2.5 03/[address] [place] [address] Lymph Absolute 1.4 x10^3/ mcL 1.2 - 4.0103 03/[address] [place] [address] Ouray Absolute 0.6 x10^3/ mcL 0.2 - 0.8103 03/[address] [place] [address] Eosinophil % Auto 3 % 0 - 5 03/[address] [place] [address] Lymphocyte % Auto 25.9 % 20.0 - 40.0 03/[address] [place] [address] Monocyte % Auto 10 % 1 - 12 03/[address] [place] [address] Neutro Absolute 3.2 x10^3/ mcL 2.0 - 7.0103 03/[address] [place] [address] Neutrophil % Auto 59.9 % 46.0 - 77.0 03/17 N 0055A-3 [facility] Encounters Combined list of: 1) Encounters from Department of [facility] facilities going backup to the last 18 months, not all OR inpatient encounters are included; 2) Encounters from the [facility] facilities going backup to 280 months. Location Location Details Encounter Type Encounter Number Reason For Visit Attending Provider ADM Date DC Date Status Disposition Source [id number] [facility] [place] Vaccine [id number] 08/09 [facility] Procedures Combined list of: 1) Procedures from [facility] facilities going back up to thelast 18 months, not all OR non-surgical procedures are included; 2) All procedures from the [facility] facilities. Procedure Procedure Type Code Date Perfomer Comments Sourc e No data available for this section Ambulatory P harmacy Social History Combined list of available smoking, tobacco, and other social history from [facility] facilities. Social History Type Response Date Comment Sourc e Sex Representation Female (finding) 10/30/2022 Unknown Organization Sexual Orientation Ambula tory Pharmacy Gender identity Ambulator y Pharmacy Assessment and Plan Combined list of future care activities from [facility] of [facility] facilities (e.g., assessment and plan notes, appointments, orders, and referrals). Additional future care activities may be listed in the Plan of Care section. Result Assessment and Plan Date Source Assessment and Plan No data available for this section 12/02/2024 Ambulatory Pharmacy Functional Status Combined list of recent functional and cognitive assessments recorded at [employer] ([place]VA Functional [place] Measurement (FIM) Scale: 1 = Total Assistance (Subject = 0% +), 2 = Maximal Assistance (Subject = 25% +), 3 = Moderate Assistance (Subject = 50% +), 4 = Minimal Assistance (Subject = 75% +), 5 = Supervision, 6 = Modified [place] (Device), 7 = Complete [place] (Timely, Safely). Assessment Date/Time Source Assessment Type Assessment Skill Assessment Score Assessment Details No data available for this section
--- OUTSIDE RECORDS SUMMARY | 2024-12-02 10:34 | XMS_ITS | Encounter Summary ---
Author Organization [facility] Healthcare Address [address] [place] [address] Care Team Providers Care Automobile Radio Repairer Name Role Phone Aba Song MD Primary Care Provide r Encounter Details Date Type Department Care Team (Late st Contact Info) Description 10/31/2024 Results Follow-Up [facility] Cardiology [address] [place] [address] Richard Collier MD [address] [address] Social History Tobacco Use Types Packs/Day Years [...] often do you attend chur ch or methodist services? Never 01/29/2021 Do you belong to any clubs o r organizations such as confucianism groups, unions, fraternal or athletic groups, or [...] place to sleep or slept in a jail (including now)? No 01/29/2021 Comments No Sex and Gender Information Value Date Recorded Sex Assigned at Not on file Legal Sex Female 4:56 AM CARPENTRY SPECIALIST Gender Identity Female 04/16/2020 9:15 AM CDT Sexual Orientation Straight 04/16/2020 9: 15 AM CDT documented as of this encounter Plan of Treatment Not on file documented as of this encounter Visit Diagnoses Not on filedocumented in this encounter Additional Health Concerns Infection Onset Date Last Indicated Resolved Time MDR gram neg/ESBL 04/22/2021 04/22/2021 documented as of this encounter Care Teams Automobile Radio Repairer Relationship Specialty Start Date End Date Aba Song MD [address] [place] [address] PCP - General Emergency Medicine 03/15/20 documented as of this encounter
--- OUTSIDE RECORDS SUMMARY | 2024-12-02 10:34 | XMS_ITS | Clinical Summary ---
Author Organization [facility] Address [address] [place] [address] Care Team Providers Care Fire Engine Pump Operator Name Role Phone Unavailable Primary Care Provider [...]
--- OUTSIDE RECORDS SUMMARY | 2024-12-02 10:34 | XMS_ITS | Encounter Summary ---
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 current use of amiodarone Procedures Pulmonary Function Test -External Richard Collier MD [address] [address] Phone: tel: fax: Referral ID Status Reason Start Date Expiration Date Visits Re quested Visits Authorized [id number] Closed 05/26/2022 06/25/2023 1 1 Reason for Visit * Procedure (Routine) - Closed Specialty Diagnoses / Procedures Referred By Joelne heart Referred To Contact Diagnoses [facility] current use of amiodarone Procedures Pulmonary Function Test -External Richard Collier MD [address] [address] Phone: tel: fax: Referral ID Status Reason Start Date Expiration Date Visits Re quested Visits Authorized [id number] Closed 05/26/2022 06/25/2023 1 1 Encounter Details Date Type Department Care Team (Latest Contact Info) Description 06/20/2022 12:39 PM CDT Hospital Encounter [facility] PFT Lab [address] [facility] [address] [place] [address] moth exterminator current use of amiodarone Social History Tobacco [...] often do you attend chur ch or tenriism services? Never 01/29/2021 Do you belong to any clubs o r organizations such as jehovah's witness groups, unions, fraternal or athletic groups, or [...] place to sleep or slept in a detention (including now)? No 01/29/2021 Comments No Sex and Gender Information Value Date Recorded Sex Assigned at Not on file Legal Sex Female 4:56 AM CLOTH PAINTER Gender Identity Female 04/16/2020 9:15 AM CDT Sexual Orientation Straight 04/16/2020 9: 15 AM CDT documented as of this encounter Plan of Treatment Not on file documented as of this encounter Procedures Procedure Name Priority Date/Time Associated Diagnosis Comments PULMONARY FUNCTION TEST (PFT) Routine 06/20/2022 1:44 PM CDT [facility] current use of amiodarone documented in this encounter Results * Pulmonary Function Test - (06/20/2022 1:44 PM CDT) [facility]VC PRE 2.90 L [facility] FVC %PRE PRED 100 % [facility] FEV1 PRE 2.45 L [facility] FEV1 %PRE PRED 108 % [facility] FEV1/FVC PRE 84.6 % [facility] FRC PL PRE 2.93 L [facility] FRC PL %PRE PRED 103 [...] documented in this encounter Visit Diagnoses Diagnosis [facility] current use of amiodarone documented in this encounter Additional Health Concerns Infection Onset Date Last Indicated Resolved Time MDR gram neg/ESBL 04/22/2021 04/22/2021 documented as of this encounter Care Teams Capital Equipment Specialist Relationship Specialty Start Date End Date Aba Song MD [address] [place], [place] [id number] PCP - General Emergency Medicine 03/15/20 documented as of this encounter
== END 2024-12-02 09:49 | disposition home or self-care (01) ==
LOC: ANHIMG 09:49
PROVIDERS: PCP Emergency Medicine; Visit Provider Emergency Medicine
DX: Z78.0 Asymptomatic menopausal state (principal)
CPT/HCPCS: 77080

== ENCOUNTER 2025-01-05 11:17 | Outpatient (CLI) | payer MEDICARE, OTHER, SELFPAY ==
--- NOTE | ~2025-01-05 | MM_ITS ---
EXAMINATION: MM screening keith BI w august HISTORY: Screening TECHNIQUE: Craniocaudal and mediolateral oblique 3-D tomosynthesis images were obtained and synthetic 2-D images were generated. CAD analysis was submitted and interpreted. COMPARISON: Comparison to multiple prior studies sequentially, with oldest reviewed study dated 01/18. BREAST PARENCHYMAL COMPOSITION: Not dense: There are scattered areas of fibroglandular density. FINDINGS: Stable distortion of the lower outer quadrant of the right breast, consistent with previous lumpectomy site. There is no evidence of suspicious mass, calcification, or architectural distortion to suggest malignancy in either breast. There has been no suspicious interval change. IMPRESSION: 1. No mammographic evidence of malignancy. 2. Recommend routine screening mammography in one year. BI-RADS Category 1: Negative Reviewed, dictated and finalized at location A.
== END 2025-01-05 11:18 | disposition home or self-care (01) ==
LOC: MICIMG 11:17
PROVIDERS: PCP Emergency Medicine; Visit Provider Emergency Medicine
DX: Z12.31 Encounter for screening mammogram for malignant neoplasm of breast (principal)
CPT/HCPCS: 77063; 77067

== ENCOUNTER 2025-02-20 11:57 | Emergency (ER) | payer MEDICARE, OTHER, SELFPAY ==
--- NOTE | ~2025-02-20 | CT_ITS ---
Non-contrast CT scan of the Abdomen and Pelvis Clinical indication: Left flank pain Technique: 2.5 mm axial scans were obtained through the abdomen and pelvis without intravenous or or al contrast. Dose reduction technique was used on this scan by utilizing automated exposure control a nd iterative reconstruction technique. The dose-length product (DLP) was 1430.08 mGy-cm. Findings: Images through the lung bases reveal no abnormalities. There is no evidence of renal or ureteral calculi. The kidneys and the ureters are nondilated. The liver, spleen, pancreas, and adrenals appear normal. Small gallstone present. There is no aortic aneurysm. There is no evidence of bowel obstruction. Moderate fat-containing umbilical hernia present. Images through the pelvis were performed. There is no evidence of ascites or lymphadenopathy. Urinary bladder unremarkable. Somewhat lobulated uterine contour could reflect underlying fibroids. Impression: No renal, ureteral, or bladder stone. No hydronephrosis. Moderate fat-containing umbilical hernia. Cholelithiasis. Questionable uterine fibroids. Reviewed, dictated and finalized at [facility]. Impression: No renal, ureteral, or bladder stone. No hydronephrosis. Moderate fat-containing umbilical hernia. Cholelithiasis. Questionable uterine fibroids.
[2025-02-20 12:33] VITALS: BP 126/63; PULSE 75; RESP 16; TEMP 36.4; O2SAT 95
--- OUTSIDE RECORDS SUMMARY | 2025-02-20 13:03 | XMS_ITS | Encounter Summary ---
Author Organization [facility] Healthcare Address [address] [place] [address] Care Team Providers Care Manager Of Creative Services Name Role Phone Aba Song MD Primary Care Provide r Encounter Details Date Type Department Care Team (Late st Contact Info) Description 05/11/2019 Telephone [facility] Advanced Medicine Radiation Oncology [address] [facility] [place] [address] Jose Hendricks CMA Social History Tobacco Use Types Packs/Day Years Used Date Smoking Tobacco: Former Comments Unknown Sex and Gender Information Value Date Recorded Sex Assigned at Not on file Legal Sex Female 4:56 AM SCHOOL COMMUNITY RELATIONS COORDINATOR Gender Identity Female 04/16/2020 9:15 AM CDT Sexual Orientation Straight 04/16/2020 9: 15 AM CDT documented as of this encounter Plan of Treatment Not on file documented as of this encounter Visit Diagnoses Not on filedocumented in this encounter Additional Health Concerns Infection Onset Date Last Indicated Resolved Time MDR gram neg/ESBL 04/22/2021 04/22/2021 documented as of this encounter Care Teams Manager Of Creative Services Relationship Specialty Start Date End Date Aba Song MD [address] [place] [address] PCP - General Emergency Medicine 03/15/20 documented as of this encounter
--- OUTSIDE RECORDS SUMMARY | 2025-02-20 13:04 | XMS_ITS ---
Author Organization [facility] [address] Address [address] [place] [address] Care Team Providers Care Pump Oiler Name Role Phone Aba Song MD Primary [...] (01/26/2021): Added automatically from request for surgery [id number] senior care current use of amiodarone 12/19/2020 [...] Watchman via right femoral vein with 14 Belarusian sheath. No evidence of bleeding or hematoma [...] watchman via right femoral vein with 14 Belarusian sheath. No evidence of bleeding or hematoma [...]
--- OUTSIDE RECORDS SUMMARY | 2025-02-20 13:04 | XMS_ITS | Referral Summary ---
Author Organization [facility] [address] Address [address] [place] [address] Care Team Providers Care Shuttle Truck Driver Name Role Phone Aba Song MD Primary [...] (two) times a day 60 tablet 4 Active Ozempic 1 mg/dose (4 mg/3 mL) pen injector injection 4 Active furosemide (LASIX) 20 mg tabletIndications :Chronic systolic congestive heart failure (HCC) Take 1 tablet (20 mg total) by mouth daily 90 tablet 2 4 Active amiodarone (PACERONE) 200 mg tabletIndications :Ventricular Rate Control in Atrial Fibrillation Take 0.5 tablets (100 mg total) by mouth daily 45 tablet 3 4 Active magnesium oxide (MAG-OX) 400 mg (241.3 mg elemental magnesium) tabletIndications :Hypomagnesemia Take 1 tablet (400 mg total) by mouth daily 90 tablet 3 4 Active metoprolol tartrate (LOPRESSOR) 25 mg immediate release tablet Take 0.5 tablets (12.5 mg total) by mouth 2 (two) times a day 90 tablet 2 5 09/15/19 26 Active Active Problems Problem Noted Date Diagnosed Date Morbid (severe) obesity due to excess calories 0 01/27/2024 Body mass index 40.0-44.9, adult (CMS/[facility]) 01/26 Chest pressure 05/26/2022 Left leg [...] 112 mcg daily. Type 2 diabetes mellitus, [facility] long-term current use of insulin 04/23/2021 Assessment [...] (01/26/2021): Added automatically from request for surgery [id number] roasterman current use of amiodarone 12/19/2020 Chronic [...] Watchman via right femoral vein with 14 [place]ambian sheath. No evidence of bleeding or hematoma [...] watchman via right femoral vein with 14 Zambian sheath. No evidence of bleeding or hematoma [...] often do you attend chur ch or jehovah's witness services? Never 01/29/2021 Do you belong to any clubs o r organizations such as hoahaoism groups, unions, fraternal or athletic groups, or [...] on file Legal Sex Female 4:56 AM PIPE RACKER Gender Identity Female 04/16/2020 9:15 AM CDT Sexual Orientation Straight 04/16/2020 9: 15 AM CDT Last Filed Vital Signs Vital Sign Reading Time Taken Comments Blood Pressure 134/86 10/25/2024 10:25 AM PIPE RACKER Pulse 71 10/25/2024 10:25 AM PIPE RACKER Temperature 37 C (98.6 F) 05/05/2022 10:59 AM CDT Respiratory Rate 29 01/02/2022 10:40 AM CDT Oxygen Saturation 97% 10/25/2024 10:25 AM PIPE RACKER Inhaled Oxygen Concentration - - Weight 108.9 kg (240 lb) 10/25/2024 10:25 AM PIPE RACKER Height 165.1 cm (5' 5) 10/25/2024 10:25 AM PIPE RACKER Body Mass Index 39.94 10/25/2024 10:25 AM PIPE RACKER Plan of Treatment Not on file Medical Devices Implanted Type Area General Office Associate Device Identifier Shelf Expiration Date Model / Serial / Lot [place] Craniomaxillof acial [id number] Duramatrix-Onl ay Plus 7x5in Regeneration Membrane Patch Dural - S000 - [id number] Implanted:Qty: 1 on 01/26/2021 by Zak Robison MD at [facility] Graft Right: Cranial Farideh Craniomaxillofaci al [id number] 07/07/2023 [id number] / 000 / [id number]? [id number] Other - See Comments Other - see comments Hip Description:Right hip replac ement 2017 [employer] Ninoska [id number] Occluder Cardiovascular 20mm Dlv Sys Watchman Flx Strl - [id number] - [id number] Implanted:Qty: 1 on 11/19/2021 by Rajiv Bazan MD PhD at [facility] Other - see comments [employer] 10/17/2023 [id number] / [id number] / [id number] Description:Watchman karen [place] Craniomaxillof acial [id number] [place] [employer] Iii 20mm Low Profile Tab Cover Maceo Hole - S000 - [id number] Implanted:Qty: 6 on 01/26/2021 by Zak Robison MD at [facility] Plate Right: Cranial Farideh Craniomaxillofaci al [id number] / 000 / 000 Farideh Craniomaxillof acial [id number] [place] [employer] 3 1.5mm 4mm Self Drill Axial Stability Screw Bone Latex Free - S000 - [id number] Implanted:Qty: 24 on 01/26/2021 by Zak Robison MD at [facility] Screw Right: Cranial [place] Craniomaxillofaci al [id number] / 000 / 000 Watchman N/A: Heart Device Karen Watchman Procedure - [id number] Implanted:Qty: 1 on 11/20/2021 by Rajiv Bazan MD PhD at [facility] [email or web address] WMPERPROCDE VICE 1-3 PC / / Procedures Procedure Name Priority Date/Time Associated Diagnosis Comments LIPID PANEL Routine 10/25/2024 5:53 PM PIPE RACKER COMPREHENSIVE METABOLIC PANEL Routine 06/06/2022 roasterman current use of amiodarone POCT HEMOGLOBIN A1C Routine 11/06/2021 3 :48 PM PIPE RACKER from Last 3 Months or Most Recently Relevant to Health Maintenance Results * Lipid panel (10/25/2024 5:53 PM PIPE RACKER) Pathologist [facility] SCRIBED Cholesterol, Total 111 <200 EXTERNAL LAB [...] N/A EXTERNAL LAB SCRIBED eGFR in NonAfrican [place] 81 < or = 60 EXTERNAL LAB Blood 06/06/2022 Richard Collier MD LAB BLOOD ORDERABLES Edit ed Result - Final EXTERNAL LAB * (ABNORMAL) POCT hemoglobin A1c (11/06/2021 3:48 PM PIPE RACKER) Hgb A1C, POC 6.7(H) 4.0 - 5.6 % [facility] Est Average Gluc POC 146 mg/dL [facility] Comment: The ADA recommends reporting an estimated Average Glucose (eAG) with all Hemoglobin A1c results using the equation derived from a study of 507 normal and diabetic adults. Minority populations were underrepresented and children were not included. (Diabetes Care 31:5366-1777, 2008). The eAG is not equivalent to a fasting glucose. Blood 11/06/2021 3:48 PM PIPE RACKER 11/06/2021 3:48 PM PIPE RACKER Rajiv Bazan MD PhD POINT OF CARE TEST ORDERAB LES Final Result [facility] [address] [facility] [place] [address] from Last 3 Months or Most Recently Relevant to Health Maintenance Additional Health Concerns Infection Onset Date Last Indicated MDR gram neg/ESBL 04/22/2021 04/22/2021 Insurance MEDICARE FOR LIFE MEDICARE FOR LIFE MEDICARE [facility] FOR LIFE Advance Directives For more information, please contact: [phone] * Full Code (Latest Code Status on File) Date Activated Date Inactivated Comments 11/19/2021 6:44 PM 11/20/2021 4:46 PM * Full Code Date Activated Date Inactivated Comments 04/21/2021 6:06 AM 04/23/2021 5:55 PM * Full Code Date Activated Date Inactivated Comments 01/26/2021 5:52 AM 02/07/2021 8:57 PM Care Teams Shuttle Truck Driver Relationship Specialty Start Date End Date Aba Song MD [address] [place] [address] PCP - General Emergency Medicine 03/15/20
--- OUTSIDE RECORDS SUMMARY | 2025-02-20 13:05 | XMS_ITS | Clinical Summary ---
Author Organization [facility] [place] [address] Address [address] [place] [address] Care Team Providers Care Pierce And Shave Press Operator Name Role Phone Aba Song MD [...] 0 01/27/2024 Body mass index 40.0-44.9, adult ([facility]) 01/26 Chest pressure 05/26/2022 Left [...] 112 mcg daily. Type 2 diabetes mellitus, [facility] long-term current use of insulin 04/23/2021 Assessment [...] (01/26/2021): Added automatically from request for surgery [id number] ocean transportation intermediary current use of amiodarone 12/19/2020 Chronic anticoagulation [...] Watchman via right femoral vein with 14 Israeli sheath. No evidence of bleeding or hematoma [...] watchman via right femoral vein with 14 Israeli sheath. No evidence of bleeding or hematoma on exam. - Currently in normal sinus rhythm, continue amiodarone 200 mg daily and apixaban 5 mg b.i.d. - Start aspirin 81 mg daily, TTE and chest x-ray in the AM - Monitor on Telemetry - Follows with Dr Russ Malignant neoplasm of breast 05/02/2009 CASTRO (dyspnea on exertion) Surgical History Surgery Date Site/Laterality Comments BREAST [...] Conv) GERD (gastroesophageal reflux disease) 2000 Cancer (HCC) 04/2009 Depression 2000 Diabetes mellitus (HCC) 1994 Hypertension 1994 Menstrual problem 1969 Hyperlipidemia Acid indigestion Anxiety and depression Arthritis Sleep apnea Seizures (HCC) 2020 Chronic kidney disease 2019 Family History Medical History Relation Name Comments Alcohol abuse Brother 1 Corey Carter Heart disease Brother 1 Corey Carter Alcohol abuse Brother 2 Jesus Manuel Shereen Diabetes Brother 2 Jesus Manuel Shereen Drug abuse Brother 2 Jesus Manuel Shereen Alcohol abuse Daughter Jeanette Gutirerez Alcohol abuse Father Thalia Shereen Cancer Father Thalia Shereen Clotting disorder Father Thlaia Shereen Diabetes Father Thalia Shereen Cancer Maternal Grandmother [place] Hinkle Clotting disorder Mother Elizabeth Shereen Diabetes Mother Elizabeth Shereen Heart disease Mother Elizabeth Shereen Hypertension Mother Elizabeth Shereen Kidney disease Mother Elizabeth Shereen Obesity Mother Elizabeth Shereen Stroke Mother Elizabeth Shereen Cancer Mother's Brother 1 Gene Hinkle Cancer Mother's Brother 2 Teodoro Hinkle Heart attack Mother's Brother 3 Orlando Hinkle Heart disease Mother's Brother 3 Orlando Hinkle Heart disease Mother's Sister Karly Del Castillogerly COPD Sister 1 Kacey Ranjan Clotting disorder Sister 1 Kacey Ranjan Diabetes Sister 1 Kacey Ranjan Cancer Sister 2 Gaye Simran Teodoro- Begum Heart disease Sister 2 Gaye Simran Teodoro- Begum COPD Sister 3 Rozina Lucio Heart disease Sister 3 Rozina Lucio Relation Name Status Comments Brother 1 Corey Carter (Age 75) Brother 2 Jesus Manuel Regan (Age 63) Daughter Jeanette Gutierrez Father Thalia Shereen (Age 54) Maternal Grandmother Kaye Hinkle Mother Elizabeth Regan (Age 73) Mother's Brother 1 Gene Hinkle Alive Mother's Brother 2 Teodoro Hinkle Alive Mother's Brother 3 Orlando Hinkle Alive Mother's Sister Karly Zamanly Alive Sister 1 Kacey Ranjan Sister 2 Gaye Simran Teodoro- Begum Sister 3 Rozina Lucio Social History [...] any clubs o r organizations such as temple groups, unions, fraternal or athletic groups, or [...] place to sleep or slept in a mcc (including now)? No 01/29/2021 Comments No Sex and Gender Information Value Date Recorded Sex Assigned at Not on file Legal Sex Female 4:56 AM ESCROW PROCESSOR Gender Identity Female 04/16/2020 9:15 AM CDT Sexual Orientation Straight 04/16/2020 9: 15 AM CDT Obstetrics History Last Filed Vital Signs Vital Sign Reading Time Taken Comments Blood Pressure 134/86 10/25/2024 10:25 AM ESCROW PROCESSOR Pulse 71 10/25/2024 10:25 AM ESCROW PROCESSOR Temperature 37 C (98.6 F) 05/05/2022 10:59 AM CDT Respiratory Rate 29 01/02/2022 10:40 AM CDT Oxygen Saturation 97% 10/25/2024 10:25 AM ESCROW PROCESSOR Inhaled Oxygen Concentration - - Weight 108.9 kg (240 lb) 10/25/2024 10:25 AM ESCROW PROCESSOR Height 165.1 cm (5' 5) 10/25/2024 10:25 AM ESCROW PROCESSOR Body Mass Index 39.94 10/25/2024 10:25 AM ESCROW PROCESSOR Plan of Treatment Health Maintenance Due Date [...] season) 2024 06/04/2021, 12/03/2020, 11/12/2020 Influenza Vaccine (Season Ended) 2025 06/24/2021, 05/31/2020, 06/21/2018, Additional history exists Pneumococcal vaccine 65+ (3 of 3 - PCV20 or PCV21) 06/02/2025 06/02/2020, 05/07/2010 Lipid Panel 10/25/2025 10/25/2024, 06/0 01/2024, 06/24/2023, Additional history exists Zoster Vaccine Completed 07/13/2019, 03/08, 05/26/2013 Medical Devices Implanted Type Area Maintainer Plant Device Identifier Shelf Expiration Date Model / Serial / Lot Farideh Craniomaxillof acial [id number] Duramatrix-Onl ay Plus 7x5in Regeneration Membrane Patch Dural - S000 - [id number] Implanted:Qty: 1 on 01/26/2021 by Zak Robison MD at [facility] Graft Right: Cranial [place] Craniomaxillofaci al [id number] 07/07/2023 [id number] / 000 / [id number] Other - See Comments Other - see comments Hip Description:Right hip replac ement 2017 [employer] [id number] Occluder Cardiovascular 20mm Dlv Sys Watchman Flx Strl - [id number] - [id number] Implanted:Qty: 1 on 11/19/2021 by Rajiv Bazan MD PhD at [facility] Other - see comments [employer] 10/17/2023 [id number] / [id number] / [id number] Description:Watchman karen [place] Craniomaxillof acial [id number] [place] [employer] Iii 20mm Low Profile Tab Cover [place] - S000 - [id number] Implanted:Qty: 6 on 01/26/2021 by Zak Robison MD at [facility] Plate Right: Cranial Farideh Craniomaxillofaci al [id number] / 000 / 000 [place] Craniomaxillof acial [id number] [place] [employer] 3 1.5mm 4mm Self Drill Axial Stability Screw Bone Latex Free - S000 - [id number] Implanted:Qty: 24 on 01/26/2021 by Zak Robison MD at [facility] Screw Right: Cranial Farideh Craniomaxillofaci al [id number] / 000 / 000 Watchman N/A: Heart Device Karen Watchman Procedure - [id number] Implanted:Qty: 1 on 11/20/2021 by Rajiv Bazan MD PhD at [facility] [employer] [id number] VICE 1-3 PC / / Procedures Procedure Name Priority Date/Time Associated Diagnosis Comments LIPID PANEL Routine 10/25/2024 5:53 PM ESCROW PROCESSOR COMPREHENSIVE METABOLIC PANEL Routine 06/06/2022 snf current use of amiodarone POCT HEMOGLOBIN A1C Routine 11/06/2021 3 :48 PM ESCROW PROCESSOR from Last 3 Months or Most Recently Relevant to Health Maintenance Results * Lipid panel (10/25/2024 5:53 PM ESCROW PROCESSOR) SCRIBED Cholesterol, Total 111 <200 EXTERNAL LAB SCRIBED HDL 48 >40 EXTERNAL LAB SCRIBED LDL 39 <100 EXTERNAL LAB SCRIBED Triglycerides 124 <150 EXTERNAL LAB Blood us Historical Provider MD LAB BLOOD ORDERABLES Edit ed Result [...] N/A EXTERNAL LAB SCRIBED eGFR in NonAfrican Nigerien 81 < or = 60 EXTERNAL LAB Blood 06/06/2022 Richard Collier MD LAB BLOOD ORDERABLES Edit ed Result - Final EXTERNAL LAB * (ABNORMAL) POCT hemoglobin A1c (11/06/2021 3:48 PM ESCROW PROCESSOR) Hgb A1C, POC 6.7(H) 4.0 - 5.6 % [facility] Est Average Gluc POC 146 mg/dL [facility] Comment: The ADA recommends reporting an estimated Average Glucose (eAG) with all Hemoglobin A1c results using the equation derived from a study of 507 normal and diabetic adults. Minority populations were underrepresented and children were not included. (Diabetes Care 31:2644-7570, 2008). The eAG is not equivalent to a fasting glucose. Blood 11/06/2021 3:48 PM ESCROW PROCESSOR 11/06/2021 3:48 PM ESCROW PROCESSOR Rajiv Bazan MD PhD POINT OF CARE TEST ORDERAB LES Final Result Performing Organization Address [facility] Co de Phone Number [facility] Department [place] [address] from Last 3 Months or Most Recently Relevant to Health Maintenance Additional Health Concerns Infection Onset Date Last Indicated MDR gram neg/ESBL 04/22/2021 04/22/2021 Insurance MEDICARE FOR LIFE MEDICARE FOR LIFE MEDICARE [facility] Address: [address] [address] FOR LIFE Advance Directives For more information, please contact: [phone] * Full Code (Latest Code Status on File) Date Activated Date Inactivated Comments 11/19/2021 6:44 PM 11/20/2021 4:46 PM * Full Code Date Activated Date Inactivated Comments 04/21/2021 6:06 AM 04/23/2021 5:55 PM * Full Code Date Activated Date Inactivated Comments 01/26/2021 5:52 AM 02/07/2021 8:57 PM Care Teams Pierce And Shave Press Operator Relationship Specialty Start Date End Date Aba Song MD [address] [place] [address] PCP - General Emergency Medicine 03/15/20
--- OUTSIDE RECORDS SUMMARY | 2025-02-20 13:06 | XMS_ITS | Encounter Summary ---
Author Organization [facility] Address [address] [place] [address] Phone Care Team Providers Care Doula Name Role Phone Aba Song MD Primary Care Provide r Reason for Referral * Procedure (Routine) - Closed Specialty Diagnoses / Procedures Referred By Jolene heart Referred To Contact Diagnoses buttermaker current use of amiodarone Procedures Pulmonary Function Test -External Richard Collier MD [address] [facility] [address] [place] [address], [address] [address] Phone: tel: fax: Referral ID Status Reason Start Date Expiration Date Visits Re quested Visits Authorized [id number] Closed 05/26/2022 06/25/2023 1 1 Reason for Visit * Procedure (Routine) - Closed Specialty Diagnoses / Procedures Referred By Jolene heart Referred To Contact Diagnoses buttermaker current use of amiodarone Procedures Pulmonary Function Test -External Richard Collier MD [address] [facility] [address], [address] [address] Phone: tel: fax: Referral ID Status Reason Start Date Expiration Date Visits Re quested Visits Authorized [id number] Closed 05/26/2022 06/25/2023 1 1 Encounter Details Date Type Department Care Team (Latest Contact Info) Description 06/20/2022 12:39 PM CDT Hospital Encounter [facility] PFT Lab [address] [facility] [address] [place] [address] buttermaker current use of amiodarone Social History Tobacco [...] any clubs o r organizations such as adventist groups, unions, fraternal or athletic groups, or [...] place to sleep or slept in a fdc (including now)? 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 Gender Identity Female 04/16/2020 9:15 AM CDT Sexual Orientation Straight 04/16/2020 9: 15 AM CDT documented as of this encounter Plan of Treatment Not on file documented as of this encounter Procedures Procedure Name Priority Date/Time Associated Diagnosis Comments PULMONARY FUNCTION TEST (PFT) Routine 06/20/2022 1:44 PM CDT buttermaker current use of amiodarone documented in this encounter Results * Pulmonary Function Test - (06/20/2022 1:44 PM CDT) FVC PRE 2.90 L [facility] FVC %PRE PRED 100 % [facility] FEV1 PRE 2.45 L [facility] FEV1 %PRE PRED 108 % [facility] FEV1/FVC PRE 84.6 % [facility] FRC PL PRE 2.93 L [facility] FRC PL %PRE PRED 103 % [facility] RV PRE 2.35 L [facility] RV %PRE PRED 111 % [facility] TLC PRE 5.35 L [facility] TLC %PRE PRED 107 % [facility] DLCO PRE 14.5 ml/min/mmH g [facility] DLCO %PRE PRED 75 % [facility] Anatomical Region Laterality Modality PFT 06/20/2022 12:5 1 PM CDT Narrative 06/24/2022 7:45 AM CDT PFT performed at:->External us Richard Collier MD PFT ORDERABLES Final Res ult documented in this encounter Visit Diagnoses Diagnosis buttermaker current use of amiodarone documented in this encounter Additional Health Concerns Infection Onset Date Last Indicated Resolved Time MDR gram neg/ESBL 04/22/2021 04/22/2021 documented as of this encounter Care Teams Doula Relationship Specialty Start Date End Date Aba Song MD [address] [place] [address] PCP - General Emergency Medicine 03/15/20 documented as of this encounter
--- OUTSIDE RECORDS SUMMARY | 2025-02-20 13:06 | XMS_ITS | Clinical Summary ---
Author Organization [facility] Address [address] [facility] 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 Active metoprolol tartrate (LOPRESSOR) 50 mg tablet [...] - 1-dose 75+ series) 2029 Care Teams Teacher Of The Deaf/Hard Of Hearing Relationship Specialty Start Date End Date Zen Cunningham MD [address] [place] [phone] PCP - General Internal Medicine 05/27/17
--- OUTSIDE RECORDS SUMMARY | 2025-02-20 13:07 | XMS_ITS | Continuity of Care Document ---
Author Name [facility] Organization [facility] Care Team Providers Care Manufacturing Recruiter Name Role Phone [facility] Unavailable Unavailable Problems Combined list of problems from Department of Defense and Veterans Affairs facilities. It does not include entries that were removed or entered in error. 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 DoD DEFICIENCIES OF SMOOTH PURSUIT MOVEMENTS Active Condition DoD DIABETES MELLITUS POORLY CONTROLLED Active Condition 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 DoD CONJUNCTIVITIS - BOTH EYES Inactive Condition DoD Conjunctival Hyperemia Active Condition DoD Alopecia Inactive Condition DoD Cervical Pap Smear Unsatisfactory Active Condition DoD VULVAR ATROPHY Active Condition DoD Anticipatory Guidance: Osteoporosis Active Condition DoD BREAST CANCER Active Condition DoD Oophorectomy Active Condition DoD visit for: screening exam for malignant neoplasm cervix Inactive Condition DoD ROUTINE GYNECOLOGICAL EXAM WITH CERVICAL PAP SMEAR Inactive Condition DoD DIABETES MELLITUS TYPE 2 Active Condition DoD ESSENTIAL HYPERTENSION Active Condition DoD Vaccines Prophylactic Need Against Influenza Inactive Condition DoD Preventive Medicine Estab Patient Checkup Adult 40-64 Inactive Condition DoD VITAMIN D DEFICIENCY Active Condition DoD DYSHIDROSIS Active Condition DoD CATARACT SENILE COMBINED FORMS Active Condition DoD NORMAL ROUTINE HISTORY AND PHYSICAL ADULT (18-65) Active Condition DoD PLANTAR FASCIITIS Active Condition DoD SKIN NEOPLASM UNCERTAIN BEHAVIOR Active Condition DoD BREAST MALIGNANT CARCINOMA INFILTRATING DUCT AND LOBULAR Active Condition DoD visit for: refer patient without exam or treatment Inactive Condition DoD HYPERLIPIDEMIA Active Condition DoD HYPOTHYROIDISM Inactive Condition DoD THYROID DISORDERS Active Condition DoD DERMATITIS Inactive Condition DoD urinary incontinence with continuous leakage Active Condition DoD tobacco use Active Condition DoD CATARACT SENILE BOTH EYES Active Condition DoD PRESBYOPIA Active Condition DoD ASTIGMATISM Active Condition DoD REFRACTIVE ERROR - HYPERMETROPIA Active Condition DoD HYPERTHYROIDISM Active Condition DoD NICOTINE DEPENDENCE Active Condition DoD OBESITY Active Condition DoD DEPRESSION Active Condition DoD ABNORMAL BLOOD CHEMISTRY Active Condition Follow up 1 month DoD HYPERTENSION (SYSTEMIC) Active Condition DoD URINARY TRACT INFECTION Active Condition DoD Laboratory Studies Inactive Condition Do D SINUSITIS ACUTE ETHMOIDAL Active Condition DoD BACTERIAL VAGINOSIS Inactive Condition DoD DIABETES MELLITUS Active Condition DoD headache Inactive Condition DoD SINUSITIS Active Condition Fluids, Ib uprofen or tylenol prn headache or bodyaches DoD OBESITY MORBID Active Condition Alter ed glucose value RT morbid obesity and family hx of diabetes AEB her elevated GTT results, though not diagnostic of diabetes. DoD Patient Education Diabetes Dietary Counseling Inactive Condition Believe pt has a better understanding of how to eat healthfully and the importance of doing so. Believe she will begin to incorporate some of today's recommendations into her diet. DoD GLUCOSE INTOLERANCE Active Condition DoD IMPAIRED FASTING GLUCOSE Active Condition Continue metfor min at low dose. f/u in January, recheck HgbA1C prior to appt. DoD ESSENTIAL HYPERTENSION BENIGN Active Condition DoD GANGLION LEFT ANKLE Active Condition Recommend observation, f/u prn if desired for treatment (aspiration vs surgical removal). DoD Mammogram Screening Inactive Condition normal clinical exam. Mammogram referral entered below. DoD URGE AND STRESS INCONTINENCE Active Condition DoD visit for: issue repeat prescription Inactive Condition DoD ANEMIA Active Condition DoD ESOPHAGEAL REFLUX Active Condition DoD feared medical condition not demonstrated Inactive Condition DoD STRESS INCONTINENCE Active Condition DoD DYSFUNCTIONAL UTERINE BLEEDING Active Condition DoD OVARIAN NEOPLASM Active Condition DoD CYSTOCELE Active Condition Obese fema le notes urine leakage at bedtime and stress urgency with incontinence occuring daily. High roughage diet for constipation as directed; Kegel exercises 70/day and 10-20 pound weight loss recommended. If no improvement within 6 months, follow-u DoD visit for: screening exam malignant neoplasm breast Inactive Condition Middle aged fem renetta with large fibrocystic breasts requires screening for breast cancer. No significant FMH for breast cancer. DoD visit for: screening exam osteoporosis Inactive Condition 49 year old fem renetta with no particular bone symptoms of hx of falls/fractures requiring osteoporosis screening. DoD Cervix Sample Taken For Pap Smear Active Condition Annual WWE with small amount of colleen lochia noted in cervical canal and enlarged non-tender uterus with irregular menses. PAP Smear specimens obtained X3 areas with results pending. Will order annual labs--CMP, CBC, Lipid Panel, T4 and TSH, and Urin DoD Uterine Enlargement Active Condition See abnormal menses comments. DoD menses abnormal Active Condition Irre gular menstrual cycles for 1 year with significant left pelvic pain last menses and heavy flow. Internal pelvic exam reveals enlarged uterus. Consider fibroid tumor, cancer, or menopausal changes. Transvaginal Pelvic US ordered with results pending DoD visit for: administrative purpose Inactive Condition DoD visit for: issue repeat prescription for medication Inactive Condition DoD LEG STRAIN GASTROCNEMIUS LEFT Inactive Condition DoD Medications Combined list of outpatient medications from [...] Pharmac y atorvastati n 20 mg tablet = 1 tab(s), Oral, Daily, # 90 EA, 2 total refill(s ), Hard Stop Oral (given by mouth) Ordered 08/22/20252024 90.0 Ambulat ory Pharmac y atorvastati n [...] 4 2024 2.0 Ambulat ory Pharmac y EMPAGLIFLOZ IN 10 MG ORAL TAB Check with your doctor before becoming . 01/17/2025 [id number] 4 [address] [place] [address] De[place] [place] empaglifloz in 25 mg oral tablet TAKE ONE TABLET IN THE MORNING, # 90 EA, 2 total refill(s ), Acute Complet ed 06/09/2023 2 2022 90.0 Ambulat ory Pharmac y Ergocalcife rol (Vitamin D Eq.) Capsule Conventiona l 1.25 mg Oral 02/10/2025 [id number] 4 [address] [place] [address] Dez QUEZADA [place] [place] ergocalcife rol 1.25 mg (50,000 units) capsule See Instruct fazal, # 14 EA, 0 total refill(s ), Hard Stop Complet ed 02/10/2025 4 2024 14.0 Ambulat ory Pharmac y ferrous sulfate 325 mg tablet See Instruct fazal, # 180 EA, 1 total refill(s ), Acute Complet ed 12/10/2023 3 2023 180.0 Ambulat ory Pharmac y ferrous sulfate 325 mg tablet = 1 tab(s), Oral, Daily, # 90 EA, 3 total refill(s ), Hard Stop Oral (given by mouth) Ordered 06/13/2025 5 2024 90.0 Ambulat ory Pharmac y ferrous sulfate 325 mg tablet 325 mg, Oral, Daily, # 90 EA, 3 total refill(s ), Hard Stop Oral (given by mouth) Complet ed 03/24/2024 4 2023 90.0 Ambulat ory Pharmac y fluconazole (U/D) 150 MG ORAL TAB Finish the prescrip tion.Do not take if . 02/10/2025 [id number] 4 [address] [place] [address] Dez QUEZADA [place] [place] fluconazole 150 mg tablet See Instruct fazal, # 2 EA, 0 total refill(s ), Hard Stop Complet ed 05/21/2024 4 2023 2.0 Ambulat ory Pharmac y fluconazole 150 mg tablet See Instruct ions, # 2 EA, 1 total refill(s ), Hard Stop Discont inued 05/18/2024 4 2023 2.0 Ambulat ory Pharmac y fluticasone 50 mcg/inh nasal spray [16g] = 1 spray(s) , Nostril- Both, BID, # 48 g, 0 total refill(s ), Soft Stop Nostri l-Both (into the nose) Ordered 5 2024 48.0 Ambulat ory Pharmac y Freestyle 28g lancets [100EA] See Instruct fazal, # 200 EA, 1 total refill(s ), Hard Stop Complet ed 03/24/2024 3 2023 200.0 Ambulat ory Pharmac y freestyle lite (glucose) test strip [50EA] See Instruct fazal, # 200 EA, 3 total refill(s ), Hard Stop Complet ed 03/24/2024 4 2023 200.0 Ambulat ory Pharmac y furosemide 20 mg tablet See Instruct ions, # 90 EA, 1 total refill(s ), Hard Stop Complet ed 12/20/2024 4 2024 90.0 Ambulat ory Pharmac y furosemide 20 mg tablet See Instruct ions, # 90 EA, 1 total refill(s ), Acute Complet ed 12/22/2023 3 2023 90.0 Ambulat ory Pharmac y furosemide 20 mg tablet = 1 tab(s), Oral, Daily, # 90 EA, 2 total refill(s ), Hard Stop Oral (given by mouth) Ordered 06/13/2025 5 2024 90.0 Ambulat ory Pharmac y furosemide 20 mg tablet 20 mg, Oral, Daily, # 90 EA, 1 total refill(s ), Hard Stop Oral (given by mouth) Complet ed 06/14/2024 4 2023 90.0 Ambulat ory Pharmac y gabapentin 100 mg capsule = 1 cap(s), Oral, TID, # 270 EA, 2 total [...] ory Pharmac y gabapentin 300 mg capsule = 1 cap(s), Oral, # 270 EA, 2 total refill(s ), Soft Stop Oral (given by mouth) Ordered 2024 270.0 Ambulat ory Pharmac y glimepiride 2 mg tablet See Instruct ions, Oral, # 180 EA, 3 total refill(s ), Hard Stop Oral (given by mouth) Complet ed 11/02/2024 4 2024 180.0 Ambulat ory Pharmac y icosapent ethyl 1 g capsule = 2 cap(s), Oral, BID, # 360 EA, 1 total refill(s ), Hard Stop Oral (given by mouth) Discont inued 11/11/2024 4 2024 360.0 Ambulat ory Pharmac y icosapent ethyl 1 g capsule = 2 cap(s), Oral, # 360 EA, 1 total refill(s ), Soft Stop Oral (given by mouth) Ordered 2024 360.0 Ambulat ory Pharmac y insulin glargine (Lantus SoloStar) 100 units/mL [3mL] = 0.65 mL, SubCutan eous, # 60 mL, 3 total [...] y Lantus SoloStar glargine 100 units/mL [3mL] = 0.55 mL, SubCutan eous, every evening, # 45 mL, 1 total refill(s ), Hard Stop SubCut aneous (under the skin) Complet ed 03/24/2024 3 2023 45.0 Ambulat ory Pharmac y levothyroxi ne (Synthroid) 112 mcg tablet = 1 tab(s), Oral, Daily, # 90 EA, 1 total [...] y levothyroxi ne (Synthroid) 112 mcg tablet = 1 tab(s), Oral, Daily, # 90 EA, 1 total refill(s ), Soft Stop Oral (given by mouth) Ordered 5 2024 90.0 Ambulat ory Pharmac y Levothyroxi ne Sodium (Levothroid ) Tablet 112 mcg Oral Take on empty stomach. Take with plenty of water.Be careful if taking OTCs.Jose e or use exactly as directed . 01/17/2025 [id number] 4 [address] [place] [address] Dez [place] [facility] [place] losartan (U/D) 25 MG ORAL TAB Be careful if taking OTCs.Jose e or use exactly as directed .Do not take if . 01/10/2025 [id number] 4 [address] [place] [address] Dez QUEZADA [place] [place] losartan 25 mg tablet 25 mg, Oral, Daily, # 90 EA, 1 total refill(s ), Hard Stop Oral (given by mouth) Complet ed 01/10/2025 4 2024 90.0 Ambulat ory Pharmac y losartan [...] Pharmac y magnesium oxide 400 mg tablet = 1 tab(s), Oral, Daily, # 90 EA, 3 total [...] y metFORMIN XR 500 mg/24 hour tablet = 2 tab(s), Oral, BID, # 360 EA, 1 total refill(s ), Hard Stop Oral (given by mouth) Discont inued 11/08/2024 4 2024 360.0 Ambulat ory Pharmac y metFORMIN XR 500 mg/24 hour tablet 1000 mg, Oral, BID, # 360 EA, 1 total refill(s ), Hard Stop Oral (given by mouth) Complet ed 03/24/2024 3 2023 360.0 Ambulat ory Pharmac y Metoprolol Tartrate (Lopressor) Tablet 25 mg Oral Be careful if taking OTCs.Jose e with food/mil k.Take or use exactly as directed .May impair driving. May cause drowsine ss/dizzi ness. 12/20/2024 [id number] 4 2023 90 [facility] Dez QUEZADA [place] [place] metoprolol tartrate 25 mg tablet See Instruct [...] total refill(s ), Hard Stop Discont inued 12/20/2024 5 2024 90.0 Ambulat ory Pharmac y metoprolol tartrate 25 mg tablet See Instruct ions, # 90 EA, 2 total refill(s ), Soft Stop Ordered 5 2024 90.0 Ambulat ory Pharmac y metoprolol tartrate 25 mg tablet 12.5 mg, 0, 0, # 90 EA, 1 total refill(s ), Hard Stop Complet ed 06/14/2024 4 2023 90.0 Ambulat ory Pharmac y needle pen 30g 8mm See Instruct ions, # 100 EA, 3 total refill(s ), Hard Stop Ordered 05/17/2025 5 2024 100.0 Ambulat ory Pharmac y Ozempic 4 mg/3 [...] y pantoprazol e EC 20 mg tablet = 1 tab(s), Oral, every morning, # 90 EA, 2 [...] Stop Oral (given by mouth) Complet ed 01/26/2025 5 2024 180.0 Ambulat ory Pharmac y SACUBITRIL/ VALSARTAN 49-51 MG ORAL TAB Obtain advice for OTCs.Dora ck with your doctor before becoming .Store in original package. 01/26/2025 [id number] 4 2023 180 [facility] Dez QUEZADA [place] [place] semaglutide (2mg dose) 8mg/3mL inj-pen [3 mL] [...] ory Pharmac y sertraline 25 mg tablet = 1 tab(s), Oral, Daily, # 90 EA, 2 total [...] 3 2022 100.0 Ambulat ory Pharmac y Trulicity Pen [...] drug Rash Active 9 Unknown Organizatio n LISINOPRIL (LISINOPRIL ) Drug allergy (disorder) Rash, Other: hives active 9 [facility] Dez QUEZADA [place] [place] Immunizations Combined list of available immunizations from the Department of Defense and Veterans Affairs facilities. Immunization Series Date Given Administered By Site Reaction Lot Number CVX Code Drug Vegetable Worker Status Comments Source RSV vaccine, preF A-preF B, recombinant 2023 MEL KHANON Shomariya pranav, left (delt oid) [id number] [employer] complet ed RSV vaccine, preF A-preF B, recombina nt 08/09/24 Given 0055C-3 [facility] Dez influenza, high-dose, quadrivalent 2020 ALUL, () Not Given influenza , high-dose , quadrival ent DoD influenza, high-dose, quadrivalent 2020 ALUL, () Not Given influenza , high-dose , quadrival ent DoD COVID-19, mRNA, LNP-S, PF, 30 mcg/0.3 mL dose 2020 ALUL, () Not Given COVID-19, mRNA, LNP-S, PF, 30 mcg/0.3 mL dose DoD Pneumococcal conjugate PCV 13 2019 ALUL, () Not Given Pneumococ polly conjugate PCV 13 DoD influenza, high-dose, quadrivalent 2019 ALUL, () Not Given influenza , high-dose , quadrival ent DoD zoster recombinant 2018 ALUL, () Not Given zoster recombina nt DoD influenza, injectable, quadrivalent, preservative free 2018 ALUL, () Not Given influenza , injectabl e, quadrival ent, preservat marylou free DoD zoster vaccine, inactivated 2018 TRANSCR IBED 187 complet ed zoster vaccine, inactivat ed 03/26/19 Given Ambulat ory Pharmac y zoster vaccine recombinant 1 2018 Unknown, Provider 187 Transcribed (TRS) complet ed zoster vaccine recombina nt DoD influenza, injectable, quadrivalent- pf 2017 zzLef t Arm [id number] Seqirus complet ed influenza , injectabl e, quadrival ent-pf 06/21/18 Given Ambulat ory Pharmac y Influenza, injectable, quadrivalent, preservative free 1 2017 Unknown, Provider [id number] Seqirus (SEQ) complet ed Influenza , injectabl e, quadrival ent, preservat marylou free DoD Influenza, inj, MDCK, quadrivalent- pf 2016 zzLef t Arm [id number] Se[employer]irus complet ed Influenza , inj, MDCK, quadrival ent-pf 07/22/17 Given Ambulat ory Pharmac y Influenza, injectable, Madin Christina Canine Kidney, preservative free, quadrivalent 1 2016 Unknown, Provider [id number] Seqirus (SEQ) complet ed Influenza , injectabl e, Madin [place] Canine Kidney, preservat marylou free, quadrival ent DoD influenza, seasonal, injectable-pf 2013 zzLef t Arm [id number] Novartis Pharmaceutica ls complet ed influenza , seasonal, injectabl e-pf 06/21/14 Given Ambulat ory Pharmac y Influenza, seasonal, injectable, preservative free 1 2013 Unknown, Provider [id number] Novartis Pharmaceutica l Ninoska. (NOV) complet ed Influenza , seasonal, injectabl e, preservat marylou free DoD influenza, seasonal, injectable-pf 2012 zzLef t Arm [id number] sanofi pasteur complet ed influenza , seasonal, injectabl e-pf 07/15/13 Given Ambulat ory Pharmac y Influenza, seasonal, injectable, preservative free 3 2012 Unknown, Provider [id number] 140 Sanofi Pasteur (PMC) complet ed Influenza , seasonal, injectabl e, preservat marylou free DoD zoster vaccine live 2012 zzLef t Arm [id number] [employer] complet ed zoster vaccine live 05/26/13 Given Ambulat ory Pharmac y zoster vaccine, live 1 2012 Unknown, Provider [id number] Merck (MSD) complet ed zoster vaccine, live DoD influenza, seasonal, injectable-pf 2011 zzLef t Arm [id number] 140 sanofi pasteur complet ed influenza , seasonal, injectabl e-pf 06/28/12 Given Ambulat ory Pharmac y Influenza, seasonal, injectable, preservative free 2 2011 Unknown, Provider [id number] Sanofi Pasteur (PMC) complet ed Influenza , seasonal, injectabl e, preservat marylou free DoD influenza virus vaccine,split 2009 zzLef t Arm [id number] 15 CSL Behring complet ed influenza virus vaccine,s plit 07/24/10 Given Ambulat ory Pharmac y influenza virus vaccine, split virus (incl. purified surface antigen)-reti red CODE 1 2009 Unknown, Provider [id number] 15 [employer]SL [employer] (CSL) complet ed influenza virus vaccine, split virus (incl. purified surface antigen)- retired CODE DoD tetanus, diphtheria, acellular pertu is 2009 zzLef t Arm [id number] 115 GlaxoSmithKli ne complet ed tetanus, diphtheri a, acellular pertussis 05/07/10 Given Ambulat ory Pharmac y pneumococcal polysaccharid e, 23 valent 2009 zzLef t Arm [id number] Merck & Company Inc complet ed pneumococ polly polysacch aride, 23 valent 05/07/10 Given Ambulat ory Pharmac y pneumococcal polysaccharid e vaccine, 23 valent 1 2009 Unknown, Provider [id number] Merck (MSD) complet ed pneumococ polly polysacch aride vaccine, 23 valent DoD tetanus toxoid, reduced diphtheria toxoid, and acellular pertu is vaccine, adsorbed 1 2009 Unknown, Provider [id number] 115 [facility] ([facility] complet ed tetanus toxoid, reduced diphtheri a toxoid, and acellular pertussis vaccine, adsorbed DoD Results Combined list of recent chemistry, hematology [...] High: 160-189 mg/dL Very High: 190 mg/dL [address] [place], [place] [address]Qlue Chemistry Chol/HDL 3 mg/dL 06/[address] [place], [place] [address]Qlue Chemistry Cholesterol Total 122 mg/dL 06/24 N Interpretive Data: According to the [place] [employer]: AGES 0-19: Desirable: < 170 mg/dL Borderline High: 170-199 mg/dL High Blood Cholesterol: >/= 200 mg/dL ADULTS: Desirable < 200 mg/dL Borderline High: 200-239 mg/dL High Blood Cholesterol: >/= 240 mg/dL [address] [place], [place] [address]Qlue Chemistry HDL Cholesterol 41 mg/dL 40 - 59 06/24 N Interpretive Data: HDL (HIGH DENSITY LIPOPROTEIN) : ADULTS: Low: < 40 mg/dL High: >/= 60 mg/dL AGES 0 -19: Low: < 40 mg/dL Borderline Low: 40 - 45 mg/dL Acceptable: > 45 mg/dL [address] [place] [address] Dez Chemistry Triglycerid es 170 mg/dL 7 - 149 06/24 H Interpretive Data: AGES 0-9: Desirable: < 75 mg/dL Borderline High: 75-99 mg/dL High: >/= 100 mg/dL AGES 10-19: Desirable: < 90 mg/dL Borderline High: 90-129 mg/dL High: >/= 130 mg/dL ADULTS: Desirable: < 150 mg/dL Borderline High: 150-199 mg/dL High: >/= 240 mg/dL Very High: >/= 500 mg/dL [facility]ITAL[facility] Chemistry LDL/HDL 1 06/[address] [place] [address] Dez Chemistry TSH 1.920 mIU/L 0.270 - 4.200 06/24 N Interpretive Data: Recommend: TPO/Thyroper oxidase Antibody when TSH result is > 4.2 uIU/mL 5600A-U SAFSA EPILAB Chemistry Ur Microalbumi n 11 mg/L 06/24 N Interpretive Data: To minimize intra-indivi dual variation, analysis of three random urine samples collected over the course of a week has also been recommended. 5A-[address] [place] [address] Chemistry Ur Creat 156 mg/dL 06/24 0055A-[address] [place] [address] Chemistry Ur Microalb/Ur Creat Ratio 7 mg/gCr 06/24 N 0055A-[address] [place] [address] Chemistry Chloride 108 mmol/L 98 - 107 06/24 H -[address] [place] [address]- Dez Chemistry Calcium 9.3 mg/dL 8.4 - 10.2 06/24 N 0055A-[address] [place] [address] Chemistry BUN/Creat Ratio 16 mg/dL 12 - 20 06/24 N 5A-[address] [place] [address] Chemistry CO2 25 mmol/L 22 - 29 06/24 N 5A-[address] [place] [address] Chemistry Creatinine Level 0.80 mg/dL 0.57 - 1.11 06/24 N 0055A-[address] [place] [address] Chemistry Protein Total 7.2 g/dL 6.4 - 8.3 06/24 N 0055A-[address] [place] [address] Chemistry Sodium 144 mmol/L 136 - 145 06/24 N 0055A-[address] [place] [address] Chemistry Potassium Lvl 3.9 mmol/L 3.5 - 5.1 06/24 N 0055A-[address] [place] [address] Chemistry Glucose Lvl 180 mg/dL 74 - 99 06/24 H 5A-[address] [place] [address] Chemistry Albumin 3.90 g/dL 3.50 - 5.20 06/24 N 0055A-[address] [place] [address] Chemistry AGAP 11.00 0.00 - 15.00 06/24 N 0055A-[address] [place] [address] Chemistry Bilirubin Total 1.6 mg/dL 0.2 - 1.2 06/24 H 0055A-[address] [place] [address] Chemistry AST 20 U/L 5 - 34 06/24 N 0055A-[address] [place] [address] Chemistry ALT 25 U/L 5 - 55 06/[address] [place] [address] Chemistry Alk Phos 57 U/L 40 - 150 06/[address] [place] [address] Chemistry BUN 13 mg/dL 7 - 20 06/[address] [place] [address] Chemistry eAvg Glucose 169 mg/dL 06/[address] [place] [address] Hemoglobin A1c 7.5 % 4.0 - 5.6 [...] diabetes. Because studies have repeatedly shown that exb-pk-morxb ol diabetes results in complication s from the disease, the goal for people with diabetes is a hemoglobin A1c less than 7%. The higher the hemoglobin A1c, the higher the risks of developing complication s related to diabetes. If confirmation is needed, consider recalling the patient and ordering Hemoglobin Electrophore sis. [address] [place] [address] eGFR CKD EPI 80 mL/min /1.73_ m2 [...] decrease 15-29 Severe decrease <15 Kidney failure 0055A-[address] [place] [address] Hematocrit 40 % 34 - 46 03/17 N 0055A-[address] [place] [address] Hemoglobin 13.4 g/dL 11.0 - 15.0 03/17 N 0055A-[address] [place] [address] MCH 32 pg 28 - 33 03/17 N 0055A-[address] [place] [address] MCHC 33.3 g/dL 33.0 - 36.5 03/17 N 0055A-[address] [place] [address] MCV 96 fL 80 - 97 03/17 N 0055A-[address] [place] [address] MPV 10.7 fL 7.4 - 10.4 03/17 H 0055A-[address] [place] [address] Platelets 158.0 x10^3/ mcL 150.0 - 450.0103 03/17 N 0055A-[address] [place] [address] RBC 4.2 x10^6/ mcL 3.6 - 5.0106 03/17 N 0055A-[address] [place] [address] Hematology RDW 13.6 % 11.0 - 14.9 03/17 N 0055A-[address] [place] [address] WBC 5.4 x10^3/ mcL 4.0 - 11.0103 03/17 N 0055A-[address] [place] [address] Eos Absolute 0.1 x10^3/ mcL 0.0 - 0.7103 03/17 N 0055A-[address] [place] [address] Hematology Baso Absolute 0.0 x10^3/ mcL 0.0 - 0.1103 03/[address] [place] [address]- Dez Hematology Basophil % Auto 0.6 % 0.0 - 2.5 03/[address] [place] [address]- [facility] Hematology Lymph Absolute 1.4 x10^3/ mcL 1.2 - 4.0103 03/[address] [place] [address]- [facility] Hematology Mchenry Absolute 0.6 x10^3/ mcL 0.2 - 0.8103 03/[address] [place] [address] Hematology Eosinophil % Auto 3 % 0 - 5 03/[address] [place] [address]- [facility] Hematology Lymphocyte % Auto 25.9 % 20.0 - 40.0 03/[address] [place] [address]- [place] [facility] Monocyte % Auto 10 % 1 - 12 03/[address] [place] [address] Hematology Neutro Absolute 3.2 x10^3/ mcL 2.0 - 7.0103 03/[address] [place] [address] Hematology Neutrophil % Auto 59.9 % 46.0 - 77.0 03/[address] [place] [address] Encounters Combined list of: 1) Encounters from [facility] of Veterans Affairs facilities going backup to the last 18 months, not all [place] inpatient encounters are included; 2) Encounters from the Department of Defense facilities going backup to 280 months. Location Location Details Encounter Type Encounter Number Reason For Visit Attending Provider ADM Date DC Date Status Disposition Source [address] [place] [address] De[place] [facility] [place] OUTPATIENT [id number] possibl e medial meniscu s injury KAILEE ROQUE 06/10 Released w/o Limitations [address] [place] [address] De[place] [facility] [place] Orthope dics[place] [address] [place] [address] Dez Ananya [facility] [place]Sco tt Internal Medicine Tm) TELE CONSULT [id number] Medicat ion Refill DIDI CHEATHAM 07/[address] [place] [address] De[place] [facility] [place]S cott Interna l Medicin e Tm) [address] [place] [address])([facility] dina Practice Non-GME FHI1) TELE CONSULT [id number] Medicat ion refill SAW PRICE 07/[address] [place] [address])(F amily Practic e Non-GME FHI1) [address] [place] [address])(Fam dina Practice Non-GME FHI1) OUTPATIENT [id number] annual pap ???poss . JASON Crisostomo se 08/04 Released w/o Limitations [address] [place] [address])(F amily Practic e Non-GME FHI1) [address] [place] [address])(Fam dina Practice Non-GME FHI2) OUTPATIENT [id number] f/u SUZANNE Austin 09/23 Released w/o Limitations [address] [place] [address])(F amily Practic e Non-GME FHI2) [address] [place] [address])(Fam dina Practice Non-GME FHI2) TELE CONSULT [id number] US results and plan of care OSUNA PORFIRIO 10/[address] [place] [address])(F amily Practic e Non-GME FHI2) [address] [place] [address])(Fam dina Practice Non-GME FHI1) TELE CONSULT [id number] Pelvic MRI results . 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) TELE CONSULT [id number] DIVINE MORALES 11/[address] [place] [address])(G ynecolo gy) [address] [place] [address])(Fam dina Practice Non-GME FHI2) TELE CONSULT [id number] 1052-qu estions on meds-dy e SILVINA DUNLAP 09/[address] [place] [address])(F amily Practic e Non-GME FHI2) [address] [place] [address])(Fam dina Practice Non-GME FHI2) OUTPATIENT [id number] f/u anemia, labs ordered SUGEY KNOWLES 10/08 Released w/o Limitations [address] [place] [address])(F amily Practic e Non-GME FHI2) [address] [place] [address])([facility] dina Practice Non-GME FHI1) TELE CONSULT [id number] [facility] SAW Caba 01/[address] [place] [address])(F amily Practic e Non-GME FHI1) [address] [place] [address])(Fam dina Practice Non-GME FHI2) OUTPATIENT [id number] full physica l SUGEY KNOWLES 02/08 Released w/o Limitations [address] [place] [address])(F amily Practic e Non-GME FHI2) [address] [place] [address])([facility] dina Practice Non-GME FHI2) TELE CONSULT [id number] repeat fasting glucose per CARLOS Santos 02/[address] [place] [address] Dez [facility])(F amily Practic e Non-GME FHI2) [address] [place] [address])([facility] dina Practice Non-GME FHI2) TELE CONSULT [id number] Per Dr Alvaro fofana based on glucose test from 19 February pt needs 2hr GTT/HA1 CARLOS HUMMEL 02/[address] [place] [address] Dez [facility])(F amily Practic e Non-GME FHI2) [address] [place] [address])(Fam dina Practice Non-GME FHI2) TELE CONSULT [id number] schedul e follow up for blood sugar based on lab from 26 February CARLOS BEVERLY 03/[address] [place] [address])(F amily Practic e Non-GME FHI2) [address] [place] [address])(Fam dina Practice Non-GME FHI2) OUTPATIENT [id number] lab follow per SHANNON Badillo 03/18 Released w/o Limitations [address] [place] [address] Dez [place] [facility] [place]F amily Practic e Non-GME FHI2) [address] [place] [address] Dez [facility])([facility]) OUTPATIENT [id number] 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 SADE SALINAS VIKTORIYA NEVIN 04/26 Released w/o Limitations [facility] Dez [facility])(N utritio nal Medicin e) [address] [place] [address] Dez [facility])([facility] dina Practice Non-GME FHI2) OUTPATIENT [id number] F/U FOR DIABETE S H#[phone] SUGEY KNOWLES 07/01 Released w/o Limitations [address] [place] [address] Dez [facility])(F amily Practic e Non-GME FHI2) [address] [place] [address] Dez [facility])([facility] dina Practice Non-GME FHI2) OUTPATIENT [id number] HEADACH E. PH:[phone]*H CARLOS RACHEL 07/09 Released w/o Limitations [address] [place] [address] Dez [facility])(F amily Practic e Non-GME FHI2) [address] [place] [address] Dez [facility])([facility] dina Practice Non-GME FHI2) OUTPATIENT [id number] well woman/f /u diabete s CARLOS RACHEL 07/22 Released w/o Limitations [address] [place] [address] Dez [facility])(F amily Practic e Non-GME FHI2) [address] [place] [address] Dez [facility])([facility] dina Practice Non-GME FHI1) TELE CONSULT [id number] refill med - SAW Johnson 10/[address] [place] [address] Dez [facility] [facility] [place]F amily Practic e Non-GME FHI1) [address] [place] [address] Dez [facility] [facility] [place] dina Practice Non-GME FHI2) OUTPATIENT [id number] poss sinus infecti on/slig ht fever SUGEY KNOWLES 11/01 Released w/o Limitations [address] [place] [address] Dez [facility] [facility] [place]F amily Practic e Non-GME FHI2) [address] [place] [address])([facility] Practice Non-GME FHI2) OUTPATIENT [id number] sinus infecti on LISA HOPKINS 11/03 Released w/o Limitations [address] [place] [address])(F amily Practic e Non-GME FHI2) [address] [place] [address])([facility] TELE CONSULT [id number] meds request - SAW Johnson 01/[address] [place] [address])(F amily Practic e Non-GME FHI2) [address] [place] [address])([facility] Non-[facility]ME FHI2) TELE CONSULT [id number] Lab results and treatme nt per [employer]ORNEY SAW Addison 02/[address] [place] [address])(F amily Practic e Non-GME FHI2) [address] [place] [address])([facility] Practice Non-GME FHI2) OUTPATIENT [id number] mo f/u; labs done CARLOS RACHEL 02/08 Released w/o Limitations [address] [place] [address])(F amily Practic e Non-GME FHI2) [address] [place] [address])([facility] Practice Non-GME FHI1) TELE CONSULT [id number] returni ng a call- RUSLAN Ochoa 03/[address] [place] [address])(F amily Practic e Non-GME FHI1) [address] [place] [address])([facility] Practice Non-GME FHI2) TELE CONSULT [id number] med refill - SAW Alejandra 04/[address] [place] [address])(F amily Practic e Non-GME FHI2) [address] [place] [address])([facility] Non-[facility]ME FHI2) OUTPATIENT [id number] fu for medicat ions and test... [phone] WILMAN GUILLEN 09/04 Released w/o Limitations [address] [place] [address])(F amily Practic e Non-GME FHI2) [address] [place] [address])(Opt ometry) OUTPATIENT [id number] DIABETE S MELLITU S VIKRAM SHARP W 09/05 Released w/o Limitations [address] [place] [address] Dez [facility] [facility] [place]O ptometr y) [address] [place] [address] Dez [facility])(Fam dina Practice Non-GME FHI1) TELE CONSULT [id number] Rx Refill- SAW Alejandra 09/[address] [place] [address] Dez [facility])(F amily Practic e Non-GME FHI1) [address] [place] [address] Dez [facility])(Fam dina Practice Non-GME FHI1) TELE CONSULT [id number] Med Refill- JADA Brooks 10/[address] [place] [address] Dez [facility])(F amily Practic e Non-GME FHI1) [address] [place] [address] eDz [facility])(Fam dina Med Tm B Non-AD BCC) TELE CONSULT [id number] med refill- SAW Alejandra 11/[address] [place] [address] Dez [facility])(F amily Med Tm B Non-AD BCC) [address] [place] [address] Dez [facility])(Fam dina Med Tm B Non-AD BCC) TELE CONSULT [id number] Apt Request - PA JADA Brooks 01/[address] [place] [address] Dez [facility])(F amily Med Tm B Non-AD BCC) [address] [place] [address] Dez [facility])(Fam dina Med Tm B Non-AD BCC) OUTPATIENT [id number] Bilat hands/f ingers skin peeling /cracki ng.No relief with hm JOEY Adams 01/15 Released w/o Limitations [address] [place] [address] De[place] [place] amily Med Tm B Non-AD BCC) [address] [place] [address] Dez [facility])(Fam dina Med Tm B Non-AD BCC) TELE CONSULT [id number] Gary/ Allergi c KELLY Holbrook 01/[address] [place] [address] Dez [facility])(F amily Med Tm B Non-AD BCC) [address] [place] [address] Dez [facility])(Fam dina Med Tm B Non-AD BCC) OUTPATIENT [id number] f/u meds, allergi c reactio n to WILMAN Narayan 01/24 Released w/o Limitations [address] [place] [address])(F amily Med Tm B Non-AD BCC) [address] [place] [address] Dez [facility])(Fam dina Med Tm B Non-AD BCC) TELE CONSULT [id number] Lab Result KELLY MUNROE P 01/[address] [place] [address])(F amily Med Tm B Non-AD BCC) [address] [place] [address] Dez [facility])(Fam dnia Med Tm B Non-AD BCC) TELE CONSULT [id number] Lab Results KELLY MUNROE P 01/[address] [place] [address])(F amily Med Tm B Non-AD BCC) [address] [place] [address] Dez [facility])(Fam dina Med Tm B Non-AD BCC) TELE CONSULT [id number] refill med/toby KELLY Livingston P 03/[address] [place] [address] Dez [facility])(F amily Med Tm B Non-AD BCC) [address] [place] [address] Dez [facility])(Fam dina Med Tm B Non-AD BCC) TELE CONSULT [id number] SAW Beltran 03/[address] [place] [address] Dez [facility])(F amily Med Tm B Non-AD BCC) [address] [place] [address] Dez [facility])(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) OUTPATIENT [id number] breast referra AMISH Cherry 04/30 Released w/o Limitations [address] [place] [address] Dez [facility] [place] b/[employer] Manager) [address] [place] [address] Dez [facility])(Fam dina Med Tm B Non-AD BCC) TELE CONSULT [id number] refill med guidSAW Gunderson 05/[address] [place] [address] Dez [facility])(F amily Med Tm B Non-AD BCC) [address] [place] [address] Dez [facility])(Fam dina Med Tm B Non-AD BCC) TELE CONSULT [id number] SAW Seals 05/[address] [place] [address] Dez [facility] [place]F amily Med Tm B Non-AD BCC) [address] [place] [address] Dez B [facility] [place]Fam dina Med Tm B Non-AD BCC) TELE CONSULT [id number] Audio Notes, Lab Results JOEY KNOWLES Nigel 05/[address] [place] [address] Dez [place]F amily Med Tm B Non-AD BCC) [address] [place] [address] Dez [facility] [facility] [place]Fam dina Med Tm B Non-AD BCC) TELE CONSULT [id number] Med renewal and appt request QUIANAJADA VILLAR Feliz 10/[address] [place] [address] Dez [place]F amily Med Tm B Non-AD BCC) [address] [place] [address] Dez B [facility] [place]Fam dina Med Tm B Non-AD BCC) TELE CONSULT [id number] [place]/ STAT referra l RAMÍREZ MONROY 10/[address] [place] [address] Dez [place]ELAB [place]F amily Med Tm B Non-AD BCC) [address] [place] [address] Dez [facility])(Fam dina Med Tm B Non-AD BCC) OUTPATIENT [id number] F/u for med renewal WILMAN GUILLEN 10/15 Released w/o Limitations [address] [place] [address] Dez [facility]F amily Med Tm B Non-AD BCC) [address] [place] [address] Dez [place] [facility] [place]Sco tt Internal Medicine ) OUTPATIENT [id number] REFERRA L/h/o breast CA/chem o; hypothy ISABELLA Naranjo CPT 10/25 Released w/o Limitations [address] [place] [address] Dez [place] [facility] [place]S cott Interna l Medicin e Tm) [address] [place] [address] Dez [place] [facility] [place]Fam dina Med Tm B Non-AD BCC) TELE CONSULT [id number] Lab Result Review results with patient SAW PRICE 10/[address] [place] [address] Dez [place] [facility] [place]F amily Med Tm B Non-AD BCC) [address] [place] [address] Dez [place] [facility] [place]Sco tt [facility] Team 3) TELE CONSULT [id number] Audio notes phoned in to patient MILADYSMEDINAELICEO 10/[address] [place] [address] Dez [facility] [facility] [place]S kishor [facility] Team 3) [address] [place] [address] Dez A[place]BELA[place]anya [facility] [place]Opt ometry) OUTPATIENT [id number] DM2 VIKRAM SHARP W 11/29 Released w/o Limitations [address] [place] [address] Group Dez Ananya ([facility]O ptometr y) [facility] Medical [facility] Dez [facility])([facility] Internal Medicine ) TELE CONSULT [id number] rx refill/ referra ls JADYN, [facility] CPT 04/[address] [place] [address] Group Dez [facility])(S cott Interna l Medicin e Tm) [facility] Medical [facility] Dez [facility])([facility] Internal Medicine ) OUTPATIENT [id number] f/u HTN/DM/ Labs/Me ds JADYN, [facility] CPT 05/07 Released w/o Limitations [address] [place] [address] Group Dez [facility])(S cott Interna l Medicin e Tm) [address] [place] [address] Dez [facility])([facility] Internal Medicine ) TELE CONSULT [id number] Referra l--Onco logy JADYN, [facility] CPT 07/[address] [place] [address] Group Dez [facility])(S cott Interna l Medicin e Tm) [facility] Medical [facility] Dez [facility])([facility] Internal Medicine ) TELE CONSULT [id number] ron chong around eyes JADYN, [facility] CPT 07/[address] [place] [address] Group Dez [facility])(S cott Interna l Medicin e Tm) [facility] Medical [facility] Dez [facility])([facility] Internal Medicine ) OUTPATIENT [id number] Ron chong R Eye and Sinus RAYA JADYN, [facility] CPT 07/24 Released w/o Limitations [facility] Medical Group Dez [facility])(S cott Interna l Medicin e Tm) [facility] Group Dez [facility])([facility] Internal Medicine ) TELE CONSULT [id number] med refill MINESH AGUDELO 09/10 Referred for Appointment [facility] Group Dez [facility] [place]S cott Interna l Medicin e Tm) [facility] Medical [facility] Dez [facility])([facility] Internal Medicine ) TELE CONSULT [id number] med refill DIDI CHEATHAM 10/15 Referred for Appointment [facility] Medical Group Dez [facility])(S cott Interna l Medicin e Tm) [facility] Group Dez [facility] [facility] [place]Mdo tt Internal Medicine Tm) TELE CONSULT [id number] rx MINESH Matthews Breanna 10/29 Referred for Appointment [facility] Dez PILAR ([facility]S cott Interna l Medicin e Tm) [facility] Medical [facility] Dez A[place]ELAB [facility] [place]Mdo tt Internal Medicine Tm) OUTPATIENT [id number] f/u on labs and meds - [id number] or [id number] ISABELLA SALAMANCA CPT 11/13 Released w/o Limitations [facility] Dez ANA[place]ELAB ([facility]S cott Interna l Medicin e Tm) [address] [place] [address] Group Dez [place] [facility] [place]Opt ometry[place] OUTPATIENT [id number] STEPHEN Alvarez 11/19 Released w/o Limitations [address] [place] [address] Dez [place]AR ([facility]O ptometr y) [address] [place] [address] Dez [place] [facility] [place] tt Internal Medicine Tm) TELE CONSULT [id number] request ing referra l to dermoto logist for lack of hair growing back [phone] [facility] DIDI CHEATHAM 11/[address] [place] [address] Group Dez [place] [facility] [place]S cott Interna l Medicin e Tm) [facility] Medical Group Dez [place] [facility] [place] 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) OUTPATIENT [id number] annual EFFIE DORADO 12/03 Released w/o Limitations [address] [place] [address] Dez A[place]ELAB ([facility]G ynecolo gy) [facility] Medical [facility] Dez [facility] [facility] [place] 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) TELE CONSULT [id number] Discuss pap results EFFIE DORADO 12/16 [facility] Group Dez [facility] ([facility]G ynecolo gy) [facility] Medical [facility] Dez ANA[facility]ELAB ([facility] 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) OUTPATIENT [id number] repeat pap EFFIE DORADO A 12/19 Released w/o Limitations [address] [place] [address] Group Dez [place] ([facility]G ynecolo gy) [address] [place] [address] Dez [place] [facility] [place]Pranav matology) OUTPATIENT [id number] DEZ Lei 01/10 Released w/o Limitations [address] [place] [address] Group Dez A[place]ELAB ([facility]Pallavi moon) [address] [place] [address] Dez [facility])([facility] Internal Medicine ) TELE CONSULT [id number] rx refill MINESH AGUDELO Breanna 02/[address] [place] [address])(S cott Interna l Medicin e Tm) [address] [place] [address])([facility] Internal Medicine ) OUTPATIENT [id number] follow up with meds ROSELYN MERCADO 03/03 Released w/o Limitations [address] [place] [address] Dez [facility])(S cott Interna l Medicin e Tm) [address] [place] [address] Dez [facility])([facility] Internal Medicine ) TELE CONSULT [id number] lab results ROSELYN MERCDAO 03/[address] [place] [address] Dez [facility])(S cott Interna l Medicin e Tm) [address] [place] [address])([facility] Internal Medicine ) OUTPATIENT [id number] f/u blood work... [id number] ROSELYN MERCADO 05/29 Released w/o Limitations [address] [place] [address])(S cott Interna l Medicin e Tm) [address] [place] [address])([facility] Internal Medicine ) TELE CONSULT [id number] labs ROSELYN MERCADO 06/[address] [place] [address] Dez [facility])(S cott Interna l Medicin e Tm) [address] [place] [address])([facility] Internal Medicine ) TELE CONSULT [id number] Meds refills /Jos kson/fx DIDI Ramirez 07/[address] [place] [address] Dez [facility])(S cott Interna l Medicin e Tm) [address] [place] [address] Dez [facility])([facility] Internal Medicine ) TELE CONSULT [id number] F/u appt. - Luis rodriguez - [id number] /Dorita [employer] [facility] DIDI CHEATHAM 08/[address] [place] [address])(S cott Interna l Medicin e Tm) [address] [place] [address])([facility] Internal Medicine ) TELE CONSULT [id number] needs Thyroid meds to get through to appt on 10 Sep 2011 [id number] MINESH AGUDELO 09/[address] [place] [address] Group Dez [facility])(S cott Interna l Medicin e Tm) [address] [place] [address] Dez [facility])([facility] Internal Medicine ) OUTPATIENT [id number] follow- up for meds CARLOS PICKENS 09/10 Released w/o Limitations [address] [place] [address] Dez [facility]S cott Interna l Medicin e Tm) [address] [place] [address] Dez [facility])([facility] Internal Medicine ) TELE CONSULT [id number] RYANN RUDOLPH 09/11 Other Not Elsewhere Classified [address] [place] [address] Dez [facility])(S cott Interna l Medicin e Tm) [address] [place] [address] Dez [facility])([facility] Internal Medicine ) TELE CONSULT [id number] Notes Entered by: SUGEY ALFORD 17 Nov 2011 1058 ------- ------- ------- ------- -- Tcon for med refill Dr Luis rodriguez ph [phone] cad dmDIDI Felix 11/[address] [place] [address] Group Dez [facility]S cott Interna l Medicin e Tm) [address] [place] [address] Dez [facility])([facility] Internal Medicine ) OUTPATIENT [id number] f/u diabete [id number] CARLOS PLASCENCIA 12/14 Released w/o Limitations [address] [place] [address] Dez [facility])(S cott Interna l Medicin e Tm) [address] [place] [address] Dez [facility])([facility] Internal Medicine ) OUTPATIENT [id number] pink eye [id number] ROSELYN MERCADO 02/25 Released w/o Limitations [address] [place] [address] Group [facility]z [facility] [place] [facility] Medicin e Tm) [address] [place] [address] Dez Ananya [facility] [place]Opt ometry) OUTPATIENT [id number] JADA HERNANDEZ 02/25 Released w/o Limitations [address] [place] [address] Dez [facility] [facility] [place]O ptometr y) [address] [place] [address] Dez Ananya [facility] [place] ) TELE CONSULT [id number] Notes Entered by: RADHA MERCADO 26 Feb 2012 1517 ------- ------- ------- ------- -- Followu p from appoint ment ROSELYN MERCADO 02/[address] [place] [address])(S cott Interna l Medicin e Tm) [address] [place] [address])(Opt ometry) OUTPATIENT [id number] bilater al conjunc JADA Felipe 03/04 Released w/o Limitations [address] [place] [address])(O ptometr y) [address] [place] [address])([facility] Internal Medicine ) TELE CONSULT [id number] Notes Entered by: Lance DIETRICH 26 Apr 2012 0932 ------- ------- ------- ------- -- Med refill/ Luis rodriguez/weston /nando [phone] DIDI CHEATHAM 04/[address] [place] [address])(S cott Interna l Medicin e Tm) [address] [place] [address])([facility] Medicine ) TELE CONSULT [id number] Notes Entered by: KAYKAY MEYER 07 Jun 2012 0953 ------- ------- ------- ------- -- Med Refill- Luis rodriguez/250 -6339/c DIDI Erickson 06/[address] [place] [address])(S cott Interna l Medicin e Tm) [address] [place] [address])([facility] Internal Medicine ) OUTPATIENT [id number] follow- up for HCM, med renewal CARLOS PICKENS 06/28 Released w/o Limitations [address] [place] [address])(S cott Interna l Medicin e Tm) [address] [place] [address])([facility] Medicine ) TELE CONSULT [id number] Notes Entered by: MARIE MELTON 28 Jun 2012 1614 ------- ------- ------- ------- -- lor YVONNE JOHNSTON 06/28 Referred for Appointment [address] [place] [address] Group [facility])(S cott Interna l Medicin e Tm) [address] [place] [address])([facility] Internal Medicine ) TELE CONSULT [id number] Notes Entered by: FRANNIE CARSON 17 Aug 2012 1607 ------- ------- ------- ------- -- Network Results -ONCOLO GY 07/08/12 CARLOS PICKENS 08/[address] [place] [address])(S cott Interna l Medicin e Tm) [address] [place] [address])([facility] Internal Medicine ) TELE CONSULT [id number] Notes Entered by: JOSHUA CASTRO 06 Dec 2012 1113 ------- ------- ------- ------- -- Med angelina /Jos murrayon/61 [phone] DIDI CHEATHAM 12/[address] [place] [address] Group [facility])(S cott Interna l Medicin e Tm) [address] [place] [address])([facility] Internal Medicine ) OUTPATIENT [id number] follow- up for HCM, labs CARLOS PICKENS 12/20 Released w/o Limitations [address] [place] [address])(S cott Interna l Medicin e Tm) [address] [place] [address])([facility] Internal Medicine ) OUTPATIENT [id number] follow up medicat ions [id number] GERMAINE AGUDELO 05/26 Released w/o Limitations [address] [place] [address])([facility] cott Interna l Medicin e Tm) [address] [place] [address])([facility] Medicine ) TELE CONSULT [id number] Notes Entered by: Feliz AGUDELO 27 May 2013 0742 ------- ------- ------- ------- -- Laborat ory results JAMISON OLIVEIRA KELLY Nigel 05/27 Referred for Appointment [address] [place] [address])([facility] cott Interna l Medicin e Tm) [address] [place] [address])([facility] Medicine ) TELE CONSULT [id number] Notes Entered by: ISAÍAS NEIL 13 Jun 2013 1137 ------- ------- ------- ------- -- [facility] Octavio [id number] MINESH AGUDELO 06/[address] [place] [address])([facility] cott Interna l Medicin e Tm) [address] [place] [address])([facility] Internal Medicine ) TELE CONSULT [id number] Notes Entered by: ELICEO FONTAINE 11 Aug 2013 0739 ------- ------- ------- ------- -- Sore throat/ octavio/Adeline 52.2805 * SHAHZAD JAMES 08/[address] [place] [address])([facility] cott Interna l Medicin e Tm) [address] [place] [address])([facility] ) OUTPATIENT [id number] Sore throat, low grade temp. GERMAINE AGUDELO 08/11 Released w/o Limitations [address] [place] [address])([facility] cott Interna l Medicin e Tm) [address] [place] [address])([facility] Medicine ) TELE CONSULT [id number] Notes Entered by: KAYKAY MEYER 19 Aug 2013 0948 ------- ------- ------- ------- -- Lump in left breast/ past cancer pt-Henr y/ * SHAHZAD JAMES 08/[address] [place] [address])([facility] cott Interna l Medicin e Tm) [address] [place] [address])([facility] ) OUTPATIENT [id number] Left breast painful lumps GERMAINE AGUDELO 08/22 Released w/o Limitations [address] [place] [address] Group [facility])(S cott Interna l Medicin e Tm) [address] [place] [address])([facility] ) TELE CONSULT [id number] Notes Entered by: Feliz AGUDELO 24 Aug 2013 1222 ------- ------- ------- ------- -- Laborat ory results SHAHZAD JAMES 08/[address] [place] [address])([facility] cott Interna l Medicin e Tm) [address] [place] [address])([facility] ) TELE CONSULT [id number] Notes Entered by: DORYS SHRESTHA 24 Aug 2013 1556 ------- ------- ------- ------- -- Med refill Octavio [phone] SHAHZAD JAMES 08/[address] [place] [address])([facility] cott Interna l Medicin e Tm) [address] [place] [address])([facility] ) OUTPATIENT [id number] f/u for 2 week blood sugar monitor [facility] [phone] GERMAINE AGUDELO 09/08 Released w/o Limitations [address] [place] [address])(S cott Interna l Medicin e Tm) [address] [place] [address])([employer] 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) OUTPATIENT [id number] ANNUAL [employer] - [id number] LUIS PROCTOR 09/27 Released w/o Limitations [address] [place] [address])(G anish gy) [address] [place] [address])([facility] ) TELE CONSULT [id number] Notes Entered by: JOSHUA CASTRO 14 Dec 2013 1514 ------- ------- ------- ------- -- Med renewal /Octavio/ CASEY ANDRES 12/[address] [place] [address])([facility] cott Interna l Medicin e Tm) [address] [place] [address])([facility] ) TELE CONSULT [id number] Notes Entered by: Feliz AGUDELO 14 Dec 2013 1623 ------- ------- ------- ------- -- Laborat ory results KASHMERARY OLIVEIRA KELLY Nigel 12/14 Referred for Appointment [address] [place] [address])([facility] cott Interna l Medicin e Tm) [address] [place] [address])([facility] ) TELE CONSULT [id number] Notes Entered by: SHAHZAD JAMES 20 Dec 2013 1000 ------- ------- ------- ------- -- Med refSHAHZAD Smith 12/[address] [place] [address])([facility] cott Interna l Medicin e Tm) [address] [place] [address])([facility] ) OUTPATIENT [id number] fu diabete s, cancer, [phone] GERMAINE AGUDELO 12/23 Released w/o Limitations [address] [place] [address])([facility] cott Interna l Medicin e Tm) [address] [place] [address])([facility] Disease Managemen t) TELE CONSULT [id number] Notes Entered by: VICTORINO MADRIGAL 30 Dec 2013 1143 ------- ------- ------- ------- -- Pt due for annual Dilated Retinal Eye exam VICTORINO MADRIGAL 12/[address] [place] [address])(S cott Disease Managem ent) [address] [place] [address])(Opt ometry) OUTPATIENT [id number] ROSHAN JEFRFEY 02/01 Released w/o Limitations [address] [place] [address])(O ptometr y) [address] [place] [address])([facility] ) TELE CONSULT [id number] Notes Entered by: CHAYA PADRON 23 May 2014 1559 ------- ------- ------- ------- -- Bridge Rx/Henr y/452.2 805 CASEY ANDRES 05/[address] [place] [address] Group [facility])(S cott Interna l Medicin e Tm) [address] [place] [address])([facility] [place] Internal Medicine Tm) OUTPATIENT [id number] f/u medicai ton/452 .2805 GERMAINE AGUDELO 06/01 Released w/o Limitations [address] [place] [address])(S cott Interna l Medicin e Tm) [address] [place] [address])([facility] ) OUTPATIENT [id number] need cardiac clearan ce b/f surg GERMAINE AGUDELO 08/11 Released w/o Limitations [address] [place] [address])(S cott Interna l Medicin e Tm) [address] [place] [address])([facility] Internal Medicine Tm) TELE CONSULT [id number] Notes Entered by: CRISTELA POST 24 Aug 2014 1209 ------- ------- ------- ------- -- Network Results -SURGER Y 4 GERMAINE AGUDELO 08/[address] [place] [address])(S cott Interna l Medicin e Tm) [address] [place] [address])([facility] Internal Medicine Tm) TELE CONSULT [id number] Notes Entered by: Feliz DIETRICH 18 Sep 2014 1225 ------- ------- ------- ------- -- Med refill Octavio CASEY ANDRES 09/[address] [place] [address])(S cott Interna l Medicin e Tm) [address] [place] [address])([facility] Internal Medicine Tm) TELE CONSULT [id number] Notes Entered by: ELICEO FONTAINE 13 Nov 2014 1324 ------- ------- ------- ------- -- Med refill/ octavio/Colton [phone]. [phone] CASEY ANDRES 11/[address] [place] [address])(S cott Interna l Medicin e Tm) [address] [place] [address])([facility] tt Disease Managemen t) TELE CONSULT [id number] Notes Entered by: VICTORINO MADRIGAL 22 Nov 2014 1039 ------- ------- ------- ------- -- Pt is showing due for annual fasting labs and f/u. VICTORINO MADRIGAL 11/[address] [place] [address])(S cott Disease Managem ent) [address] [place] [address])([facility] Internal Medicine Tm) TELE CONSULT [id number] Notes Entered by: JOSHUA CASTRO 11 Dec 2014 1020 ------- ------- ------- ------- -- Med renewal /octavio/ Janelle8.452 .2805 CASEY ANDRES 12/[address] [place] [address])(S cott Interna l Medicin e Tm) [address] [place] [address])([facility] ) OUTPATIENT [id number] f/u for labs and med renewal [id number] GERMAINE AGUDELO 12/22 Released w/o Limitations [address] [place] [address])(S cott Interna l Medicin e Tm) [address] [place] [address])([facility] Internal Medicine Tm) TELE CONSULT [id number] Notes Entered by: Lance DIETRICH 28 May 2015 0919 ------- ------- ------- ------- -- Med refilll /Octavio/ [phone] CASEY ANDRES 05/[address] [place] [address])([facility] cott Interna l Medicin e Tm) [address] [place] [address])([facility] ) OUTPATIENT [id number] med renewal [id number] GERMAINE AGUDELO 07/03 Released w/o Limitations [address] [place] [address])(S cott Interna l Medicin e Tm) [address] [place] [address])([facility] Internal Medicine ) TELE CONSULT [id number] Notes Entered by: Rico LICEA 26 Nov 2015 0935 ------- ------- ------- ------- -- Med Renewal / Octavio / CASEY ANDRES 11/[address] [place] [address])(S cott Interna l Medicin e Tm) [address] [place] [address])([facility] Internal Medicine ) TELE CONSULT [id number] Notes Entered by: DMITRY VANCE ELS 27 Nov 2015 1209 ------- ------- ------- ------- -- Lab Order Request //Octavio //452.2 805 CASEY ANDRES 11/[address] [place] [address])(S cott Interna l Medicin e Tm) [address] [place] [address])([facility] Internal Medicine ) OUTPATIENT [id number] f/u on meds - [id number] GERMAINE AGUDELO 12/03 Released w/o Limitations [address] [place] [address])(S cott Interna l Medicin e Tm) [address] [place] [address])([facility] Internal Medicine ) TELE CONSULT [id number] Notes Entered by: TOMMY HEWITT 21 Dec 2015 1219 ------- ------- ------- ------- -- NORM Gaxiola 12/20 Immediate Referral [address] [place] [address])(S cott Interna l Medicin e Tm) [address] [place] [address])([facility] ) TELE CONSULT [id number] Notes Entered by: Rico LICEA 07 Jul 2016 0918 ------- ------- ------- ------- -- Med Renewal / Octavio/ - CASEY Mcclure 07/07 [facility] Dez [facility])(S cott Interna l Medicin e Tm) [facility] De[facility])([facility] tt Internal Medicine Tm) OUTPATIENT [id number] [facility] / GERMAINE AGUDELO 07/23 Released w/o Limitations [address] [place] [address] Group [employer] [place] Interna l Medicin e Tm) [address] [place] [address] Group [facility])([facility] Internal Medicine Tm) TELE CONSULT [id number] Notes Entered by: Feliz AGUDELO 25 Jul 2016 0706 ------- ------- ------- ------- -- Radiolo gy results CASEY ANDRES 07/[address] [place] [address] Group [facility])(S cott Interna l Medicin e Tm) [address] [place] [address] Group [facility])([facility] Internal Medicine Tm) TELE CONSULT [id number] Notes Entered by: Rico LICAE 30 Jul 2016 1000 ------- ------- ------- ------- -- Medicat ion Inquiry / Octavio / - SAI Dickens 07/30 Referred for Appointment [facility] Medical Group Dez [facility])(S cott Interna l Medicin e Tm) [facility] Medical Group Dez B [facility] [place] tt Internal Medicine Tm) OUTPATIENT [id number] Knee and Hip pain (HOP not sure which side) 452.280 5 WALTER VERA 09/16 Released w/o Limitations [address] [place] [address] Group [employer] [place] cott Interna l Medicin e Tm) [address] [place], [place] [address]B [facility] [place] tt Internal Medicine Tm) TELE CONSULT [id number] Notes Entered by: MOOKIE SCHAFFER 29 Sep 2016 1019 ------- ------- ------- ------- -- Results /Octavio/ CASEY ANDRES 09/[address] [place] [address])(S cott Interna l Medicin e Tm) [address] [place] [address])([facility] tt Disease Managemen t) TELE CONSULT [id number] Notes Entered by: VICTORINO MADRIGAL 09 Oct 2016 1552 ------- ------- ------- ------- -- Pt due for fasting labs VICTORINO MADRIGAL 10/[address] [place] [address])(S cott Disease Managem ent) [address] [place] [address])([facility] Internal Medicine Tm) OUTPATIENT [id number] right hip and knee GERMAINE AGUDELO 10/13 Released w/o Limitations [address] [place] [address])(S cott Interna l Medicin e Tm) [address] [place] [address])([facility] Internal Medicine Tm) TELE CONSULT [id number] Notes Entered by: MOOKIE SCHAFFER 20 Oct 2016 0930 ------- ------- ------- ------- -- Med Renewal /Octavio/ CASEY ANDRES 10/[address] [place] [address])(S cott Interna l Medicin e Tm) [address] [place] [address])([place] - [facility] [facility]) OUTPATIENT [id number] 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 OLIVE HAMMOND 11/03 Released w/o Limitations [address] [place] [address])(V A - Orthope dics) [address] [place] [address])([facility] Internal Medicine Tm) TELE CONSULT [id number] Notes Entered by: Donald MARY 11 Nov 2016 0737 ------- ------- ------- ------- -- Script for physica l therapy CASEY ANDRES 11/[address] [place] [address])(S cott Interna l Medicin e Tm) [address] [place] [address])([facility] Internal Medicine ) TELE CONSULT [id number] Notes Entered by: Feliz AGUDELO 13 Nov 2016 1632 ------- ------- ------- ------- -- Radiolo gy results CASEY ANDRES 11/[address] [place] [address])(S cott Interna l Medicin e Tm) [address] [place] [address])([place] - Orthoped[place] cs) OUTPATIENT [id number] right leg OLIVE HAMMOND 12/01 Released w/o Limitations [address] [place] [address])(V A - Orthope dics) [address] [place] [address])(Phy sical Therapy) TELE CONSULT [id number] Notes Entered by: SURINDER CORTES 11 Dec 2016 0856 ------- ------- ------- ------- -- Network Results - PHYSICA L THERAPY 11/18/16 - 12/05/16 OLIVE SANDOVAL 12/[address] [place] [address])(P hysical Therapy ) [address] [place] [address])([facility] Medicine ) TELE CONSULT [id number] Notes Entered by: Rico LICEA 22 Dec 2016 1240 ------- ------- ------- ------- -- Elvin Alfaro / Octavio/ - CASEY Mcclure 12/[address] [place] [address])(S cott Interna l Medicin e Tm) [address] [place] [address])([facility] Internal Medicine ) TELE CONSULT [id number] Notes Entered by: BLAINE LIANG 01 Jan 2017 1328 ------- ------- ------- ------- -- Network results Occupat ional/P hysical Therapy 7 GERMAINE AGUDELO 01/[address] [place] [address])(S cott Interna l Medicin e Tm) [address] [place] [address])([facility] Internal Medicine ) TELE CONSULT [id number] Notes Entered by: ABEL ALFORD 19 Jan 2017 1307 ------- ------- ------- ------- -- Rx renewal - Octavio - - tsg CASEY ANDRES 01/[address] [place] [address])(S cott Interna l Medicin e Tm) [address] [place] [address])([facility] Internal Medicine ) OUTPATIENT [id number] Pain in R leg/507 [id number] DIVINE ORR 03/02 Released w/o Limitations [address] [place] [address])(S cott Interna l Medicin e Tm) [address] [place] [address])([facility] Internal Medicine ) TELE CONSULT [id number] Notes Entered by: ADRIEL COSBY 16 Mar 2017 1017 ------- ------- ------- ------- -- Request for Lab Order - Appt 06 April / Octavio / - sgj CASEY ANDRES 03/[address] [place] [address])(S cott Interna l Medicin e Tm) [address] [place] [address])([facility] Internal Medicine ) OUTPATIENT [id number] F/U for diabete s / medicat ions / lab results [id number] GERMAINE AGUDELO 03/22 Released w/o Limitations [address] [place] [address])(S cott Interna l Medicin e Tm) [address] [place] [address])([facility] Internal Medicine ) TELE CONSULT [id number] Notes Entered by: SUGEY ALFORD 26 Mar 2017 1555 ------- ------- ------- ------- -- Network results Pain Managem ent 017 GERMAINE LUNA 03/[address] [place] [address])(S cott Interna l Medicin e Tm) [address] [place] [address])([facility] Internal Medicine ) TELE CONSULT [id number] Notes Entered by: DEVI MASON 14 Apr 2017 0800 ------- ------- ------- ------- -- Med Change/ Octavio/Adeline 52.2805 /CASEY Key 04/[address] [place] [address])(S cott Interna l Medicin e Tm) [address] [place] [address])([facility] Internal Medicine ) TELE CONSULT [id number] Notes Entered by: TOMMY HEWITT 19 May 2017 1259 ------- ------- ------- ------- -- Outside Referra l request for pre-op CASEY ANDRES 05/[address] [place] [address])(S cott Interna l Medicin e Tm) [address] [place] [address])([facility] Internal Medicine ) TELE CONSULT [id number] Notes Entered by: CANDICE GARZON RET 29 Jun 2017 1453 ------- ------- ------- ------- -- RX Renewal /Octavio/ CASEY Bobby 06/[address] [place] [address])(S cott Interna l Medicin e Tm) [address] [place] [address])([facility] Internal Medicine ) TELE CONSULT [id number] Notes Entered by: Robb CHOWDARY 09 Jul 2017 1511 ------- ------- ------- ------- -- Referra l issue/6 [phone]/CAN Solorzano 07/09 Referred for Appointment [facility] Medical Group [facility])(S cott Interna l Medicin e Tm) [address] [place] [address])([facility] Internal Medicine ) OUTPATIENT [id number] Derm issue on face/ne ck/abdo men / sleep issues [id number] GERMAINE AGUDELO 07/15 Released w/o Limitations [address] [place] [address])(S cott Interna l Medicin e Tm) [address] [place] [address])([facility] Internal Medicine ) TELE CONSULT [id number] Notes Entered by: Sina PETERSEN 21 Jul 2017 1432 ------- ------- ------- ------- -- Network Results Orthope dic Surgery 05/07/17 and 7 TSB GERMAINE AGUDELO 07/[address] [place] [address])(S cott Interna l Medicin e Tm) [address] [place] [address])([facility] Internal Medicine ) TELE CONSULT [id number] Notes Entered by: MOOKIE SCHAFFER 04 Aug 2017 1220 ------- ------- ------- ------- -- Elvin alfaro /Octavio/ 452.280 5 KELLY VELAZQUEZ 08/04 Referred for Appointment [address] [place] [address])(S cott Interna l Medicin e Tm) [address] [place] [address])([facility] Internal Medicine ) TELE CONSULT [id number] Notes Entered by: Donald MARY 08 Sep 2017 0945 ------- ------- ------- ------- -- ER f/u Rec. Request ed ([facility]) CASEY ANDRES 09/[address] [place] [address])(S cott Interna l Medicin e Tm) [facility] Medical Group Dez [facility])([facility] Internal Medicine ) OUTPATIENT [id number] Annual Appoint ment follow up GERMAINE AGUDELO 09/16 Released w/o Limitations [address] [place] [address] Group [employer] [place]S cott Interna l Medicin e Tm) [address] [place] [address] Group Dez [facility])([facility] Internal Medicine ) TELE CONSULT [id number] Notes Entered by: ADRIEL COSBY 19 Oct 2017 0909 ------- ------- ------- ------- -- Med Renewal / Octaivo / - sgj CASEY ANDRES 10/[address] [place] [address] Group [facility]z [facility] ([facility]S cott Interna l Medicin e Tm) [address] [place] [address] Dez [facility])([facility]) OUTPATIENT [id number] 3 mo DM f/u MANOHAR AGUDELO 12/18 Released w/o Limitations [address] [place] [address] Group [facility]z [facility] ([facility]) [address] [place] [address] Group Dez [facility])([facility] Internal Medicine ) OUTPATIENT [id number] DM follow up - 3mo WALTER VERA 03/18 Released w/o Limitations [address] [place] [address] Group Dez [place] ([facility]S cott Interna l Medicin e Tm) [address] [place] [address] Group Dez [facility])([facility]) OUTPATIENT [id number] Notes Entered by: Pallavi MARISCAL N 22 Mar 2018 1002 ------- ------- ------- ------- -- DM f/u and medicat ion educati on CLARK SCHWARZ 03/22 Released w/o Limitations [address] [place] [address] Group [facility] ([facility]) [address] [place] [address] Group Dez [place] ([facility] ) TELE CONSULT [id number] Notes Entered by: Donald MARY 11 Jun 2018 1025 ------- ------- ------- ------- -- Outside pharmac y out of stock of medicat ion./ gwp CASEY ANDRES 06/11 Medication Refill Forwarded [address] [place] [address])(S cott Interna l Medicin e Tm) [address] [place] [address])([facility]) OUTPATIENT [id number] 3 month DM F/U CLARK SCHWARZ N 06/18 Released w/o Limitations [address] [place] [address])(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) OUTPATIENT [id number] vag bump NI HOLLINS 06/22 Released w/o Limitations [address] [place] [address])([facility]) [address] [place] [address])([employer] 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) TELE CONSULT [id number] Notes Entered by: Breanna HOLLINS 24 Jun 2018 1539 ------- ------- ------- ------- -- HSV Virus culture OZIEL BELL 06/24 Referred for Appointment [address] [place] [address])([facility]) [address] [place] [address])([facility] ) OUTPATIENT [id number] Discuss DEXA scan/de crease in Zoloft ([id number] 018) SHARIF OLEA 07/02 Released w/o Limitations [address] [place] [address])([facility]) [address] [place] [address])([facility]) OUTPATIENT [id number] 6 3 month DM f/u LCARK SCHWARZ Riley 09/09 Released w/o Limitations [employer] [place] [place]) [employer] [place] [place] 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[facility] OUTPATIENT [id number] WWE NI HOLLINS 10/21 Released w/o Limitations [employer] [place] [facility] [place] [employer] [facility] [place] 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) TELE CONSULT [id number] Notes Entered by: Breanna HOLLINS 26 Oct 2018 1035 ------- ------- ------- ------- -- OZIEL Reed 10/26 Released w/o Limitations [employer] [place] [place] [employer] [place] [place] 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) TELE CONSULT [id number] Notes Entered by: Breanna HOLLINS 28 Oct 2018 1339 ------- ------- ------- ------- -- OZIEL Reed 10/28 Released w/o Limitations [employer] [place] [place] [employer] [place] [facility] [place]) OUTPATIENT [id number] 6 F/U blood pressur e [phone] SHARIF OLEA 11/16 Released w/o Limitations [employer] [place] [place] [employer] [place] [place] 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) OUTPATIENT [id number] 5 f/u yeast infecti on [phone] CASTRO ROSENBAUM 11/19 Released w/o Limitations [employer] [place] [place] [employer] [place] [place] 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) TELE CONSULT [id number] Notes Entered by: Breanna HOLLINS 22 Nov 2018 0830 ------- ------- ------- ------- -- Lab OZIEL BELL 11/22 Released w/o Limitations [address] [place] [address])([facility]) [address] [place] [address])([employer] 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) TELE CONSULT [id number] Notes Entered by: CASTRO ROSENBAUM 26 Nov 2018 1348 ------- ------- ------- ------- -- OspeCASTRO Pfeiffer 11/[address] [place] [address])(G anish gy) [address] [place] [address])([facility]) TELE CONSULT [id number] Notes Entered by: MOOKIE SCHAFFER 29 Nov 2018 0943 ------- ------- ------- ------- -- Med Renewal /Jose /452.28 05 CASEY ANDRES 11/29 Medication Refill Forwarded [address] [place] [address])([facility]) [address] [place] [address])([employer] 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) TELE CONSULT [id number] Notes Entered by: VERA LERMA 07 Dec 2018 1028 ------- ------- ------- ------- -- Scanned bone density into ELIZABETH WATTS Feliz 12/[address] [place] [address])([facility]) [address] [place] [address])([facility]) OUTPATIENT [id number] 5 3 MONTH DM F/U CLARK SCHWARZ 12/09 Released w/o Limitations [address] [place] [address])([facility]) [address] [place] [address])([employer] 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) OUTPATIENT [id number] 8 f/u for pain - [phone] CASTRO ROSENBAUM 01/21 Released w/o Limitations [address] [place] [address] Dez [facility])([facility]col[facility] gy) [address] [place] [address] Dez [facility])([facility]) OUTPATIENT [id number] VIRTUAL SPEC 2 MONTH DM F/U CLARK SCHWARZ 01/26 Released w/o Limitations [address] [place] [address] [place] [facility] [place] [facility] [address] [place] [address] Dez [facility])([facility] ) TELE CONSULT [id number] Notes Entered by: MOOKIE SCHAFFER 04 Feb 2019 0953 ------- ------- ------- ------- -- Med Renewal /Jose / CASEY ANDRES 02/04 Medication Refill Forwarded [address] [place] [address] De[place] [facility] [place]) [address] [place] [address] Dez [facility])([facility] ) TELE CONSULT [id number] Notes Entered by: DEVI MASON 28 Feb 2019 0927 ------- ------- ------- ------- -- Med Renewal /Jose // kaylam CASEY ANDRES 02/28 Medication Refill Forwarded [address] [place] [address] Dez [place] [facility] [place]) [address] [place] [address] Dez ANABELAAnanya [facility] [place]) OUTPATIENT [id number] 1 3 MONTH DM F/U CLARK SCHWARZ 03/08 Released w/o Limitations [address] [place] [address] De[place] [facility] [place] [address] [place] [address] Dez ANABELAAnanya [facility] [place] 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) OUTPATIENT [id number] 0 left breast lump - [phone] AMISH ADAMS 03/14 Released w/o Limitations [address] [place] [address] De[place] [facility] [place]) [address] [place] [address] Dez [facility] [place]) OUTPATIENT [id number] Type 2 diabete s mellitu s without complic ations ELIZABETH, EDWINA S 03/14 Released w/o Limitations [address] [place] [address])([facility]) [address] [place] [address])([facility] ) TELE CONSULT [id number] Notes Entered by: ADRIEL COSBY 28 Mar 2019 1110 ------- ------- ------- ------- -- Med Renewal / Jose / - sgj CASEY ANDRES 03/28 Medication Refill Forwarded [address] [place] [address])([facility]) [address] [place] [address])([facility]) OUTPATIENT [id number] ELIZABETH, EDWINA S 04/11 Released w/o Limitations [address] [place] [address])([facility]) [address] [place] [address])([facility] ) TELE CONSULT [id number] Notes Entered by: ADRIEL COSBY 10 May 2019 0943 ------- ------- ------- ------- -- Med Renewal / Jose / - sgj CASEY ANDRES 05/10 Other Not Elsewhere Classified [address] [place] [address])([facility]) [address] [place] [address])([facility]) OUTPATIENT [id number] 5 3 MONTH DM F/U CLARK SCHWARZ 06/08 Released w/o Limitations [address] [place] [address])([facility]) [address] [place] [address])([facility] ) TELE CONSULT [id number] Notes Entered by: FRANCO SCHWARZ 09 Jun 2019 1244 ------- ------- ------- ------- -- Appt for ear pain/ne w ortho referra l/med refill CASEY ANDRES 06/[address] [place] [address] Dez [facility])([facility]) [address] [place] [address] Dez [facility])([facility] ) OUTPATIENT [id number] 8 left ear pain X 2 weeks REGGIE ESPINO 06/09 Released w/o Limitations [address] [place] [address])([facility]) [address] [place] [address])([facility]) OUTPATIENT [id number] 1 3 MONTH DM F/U CLARK SCHWARZ 08/18 Released w/o Limitations [address] [place] [address])([facility]) [address] [place] [address])([facility] ) TELE CONSULT [id number] Notes Entered by: BERTA HYMAN 09 Nov 2019 0949 ------- ------- ------- ------- -- Network results Orthope dics 020 EER REGGIE ESPINO 11/[address] [place] [address] Dez [facility])([facility]) [address] [place] [address])([facility] ) TELE CONSULT [id number] Notes Entered by: TOMMY HEWITT 13 Dec 2019 1353 ------- ------- ------- ------- -- Med Renewal CASEY Mcnair 12/12 Medication Refill Forwarded [address] [place] [address])([facility]) [id number] [facility] [place] Vaccine [id number] 08/09 0055C-3 [facility] [employer] Procedures Combined list of: 1) Procedures from Department of [facility] Affairs facilities [facility], not all VA non-surgical procedures are included; 2) All procedures from the Department of Defense facilities. Procedure Procedure Type Code Date Perfomer Comments Sourc e No data available for this section Ambulatory Pharmacy SCREENING TEST OF VISUAL ACUITY, QUANTITATIVE, BILATERAL 2011 [facility] MEDICATION THERAPY MGT SERVICE(S) PROVIDED,A PHARMACISTNATHALIA,FACE-T O-FACE W PATIENT,WITH ASSESS & INTERVENE IF PROVIDED;EA ADDITION 15 MINUTES (LIST SEPARATELY IN ADDITION TO CODE FOR PRIM SERVICE) 2019 [facility] MEDICATION THERAPY MGT SERVICE(S) PROVIDED,A NATHALIA LÓPEZ,FACE-T O-FACE W PATIENT,WITH ASSESS & INTERVENE IF PROVIDED;EA ADDITION 15 MINUTES (LIST SEPARATELY IN ADDITION TO CODE FOR PRIM SERVICE) 2018 [facility] MEDICAL NUTRITION THERAPY; RE-ASSESSMENT AND INTERVENTION, INDIVIDUAL, [id number] WITH THE PATIENT, EACH [address] [facility] INCISION AND DRAINAGE OF ABSCESS (EG, CARBUNCLE, SUPPURATIVE HIDRADENITIS, CUTANEOUS OR SUBCUTANEOUS ABSCESS, CYST, FURUNCLE, OR PARONYCHIA); SIMPLE OR SINGLE 2018 [facility] MEDICAL NUTRITION THERAPY; GROUP (2 OR MORE INDIVIDUAL(S)), EACH 30 MINUTES 2018 [facility]D MEDICATION THERAPY MGT SERVICE(S) PROVIDED,A PHARMACISTNATHALIA,FACE-T O-FACE W PATIENT,WITH ASSESS & INTERVENE IF PROVIDED;EA ADDITION 15 MINUTES (LIST SEPARATELY IN ADDITION TO CODE FOR PRIM SERVICE) 2018 [facility] ONLINE ASSESS &MANAG SERV PROVIDE,A QUAL NONPHYS HCP TO AN ESTABLISHED PAT/GUARDIAN,NOT ORIGINAT FR RELAT ASSESS &MANAG SERV PROVIDE W/IN THE PREV 7 DAYS,USE THE INTERNET/SIMILAR [employer] COMM NETWORK 2018 DoD MEDICATION THERAPY MGT SERVICE(S) PROVIDED,A NATHALIA LÓPEZ,FACE-T O-FACE W PATIENT,WITH ASSESS & INTERVENE IF PROVIDED;EA ADDITION 15 MINUTES (LIST SEPARATELY IN ADDITION TO CODE FOR PRIM SERVICE) 2018 [facility] SCREENING PAPANICOLAOU SMEAR; OBTAINING, PREPARING AND CONVEYANCE OF CERVICAL OR VAGINAL SMEAR TO LABORATORY 2018 DoD MEDICATION THERAPY MANAGEMENT SERVICE(S) PROVIDED BY A PHARMACIST, INDIVIDUAL, [id number] WITH PATIENT, WITH ASSESSMENT AND INTERVENTION IF PROVIDED; INITIAL 15 MINUTES, ESTABLISHED PATIENT 2018 [facility] MEDICATION THERAPY MGT SERVICE(S) PROVIDED,A NATHALIA LÓPEZ,FACE-T O-FACE W PATIENT,WITH ASSESS & INTERVENE IF PROVIDED;EA ADDITION 15 MINUTES (LIST SEPARATELY IN ADDITION TO CODE FOR PRIM SERVICE) 2017 DoD MEDICATION THERAPY MANAGEMENT SERVICE(S) PROVIDED BY A PHARMACIST, INDIVIDUAL, [id number] WITH PATIENT, WITH ASSESSMENT AND INTERVENTION IF PROVIDED; INITIAL 15 MINUTES, ESTABLISHED PATIENT 2017 DoD MEDICATION THERAPY MANAGEMENT SERVICE(S) PROVIDED BY A PHARMACIST, INDIVIDUAL, [id number] WITH PATIENT, WITH ASSESSMENT AND INTERVENTION IF PROVIDED; INITIAL 15 MINUTES, NEW PATIENT 2017 DoD TELE ASSESS & MGT SRV PROV QUAL NONPHYS HLTH CARE PRO TO EST PAT,PARENT,GUARD NOT ORIG REL ASSESS & MGT SRV PROV W/IN PREV 7 DAYS NOR LEAD ASSESS & MGT SRV/PX W/IN NXT 24 HR/SOON APT;5-10 MIN MED DIS 2017 DoD TELE ASSESS & MGT SRV PROV QUAL NONPHYS HLTH CARE PRO TO EST PAT,PARENT,GUARD NOT ORIG REL ASSESS & MGT SRV PROV W/IN PREV 7 DAYS NOR LEAD ASSESS & MGT SRV/PX W/IN NXT 24 HR/SOON APT;5-10 MIN MED DIS 2017 DoD TELE ASSESS & MGT SRV PROV QUAL NONPHYS HLTH CARE PRO TO EST PAT,PARENT,GUARD NOT ORIG REL ASSESS & MGT SRV PROV W/IN PREV 7 DAYS NOR LEAD ASSESS & MGT SRV/PX W/IN NXT 24 HR/SOON APT;5-10 MIN MED DIS 2016 DoD TELE ASSESS & MGT SRV PROV QUAL NONPHYS HLTH CARE PRO TO EST PAT,PARENT,GUARD NOT ORIG REL ASSESS & MGT SRV PROV W/IN PREV 7 DAYS NOR LEAD ASSESS & MGT SRV/PX W/IN NXT 24 HR/SOON APT;5-10 MIN MED DIS 2016 DoD TELE ASSESS & MGT SRV PROV QUAL NONPHYS HLTH CARE PRO TO EST PAT,PARENT,GUARD NOT ORIG REL ASSESS & MGT SRV PROV W/IN PREV 7 DAYS NOR LEAD ASSESS & MGT SRV/PX W/IN NXT 24 HR/SOON APT;5-10 MIN MED DIS 2016 DoD TELE ASSESS & MGT SRV PROV QUAL NONPHYS HLTH CARE PRO TO EST PAT,PARENT,GUARD NOT ORIG REL ASSESS & MGT SRV PROV W/IN PREV 7 DAYS NOR LEAD ASSESS & MGT SRV/PX W/IN NXT 24 HR/SOON APT;5-10 MIN MED DIS 2016 DoD TELE ASSESS & MGT SRV PROV QUAL NONPHYS HLTH CARE PRO TO EST PAT,PARENT,GUARD NOT ORIG REL ASSESS & MGT SRV PROV W/IN PREV 7 DAYS NOR LEAD ASSESS & MGT SRV/PX W/IN NXT 24 HR/SOON APT;5-10 MIN MED DIS 2016 DoD TELE ASSESS & MGT SRV PROV QUAL NONPHYS HLTH CARE PRO TO EST PAT,PARENT,GUARD NOT ORIG REL ASSESS & MGT SRV PROV W/IN PREV 7 DAYS NOR LEAD ASSESS & MGT SRV/PX W/IN NXT 24 HR/SOON APT;5-10 MIN MED DIS 2016 DoD TELE ASSESS & MGT SRV PROV QUAL NONPHYS HLTH CARE PRO TO EST PAT,PARENT,GUARD NOT ORIG REL ASSESS & MGT SRV PROV W/IN PREV 7 DAYS NOR LEAD ASSESS & MGT SRV/PX W/IN NXT 24 HR/SOON APT;5-10 MIN MED DIS 2016 DoD TELE ASSESS & MGT SRV PROV QUAL NONPHYS HLTH CARE PRO TO EST PAT,PARENT,GUARD NOT ORIG REL ASSESS & MGT SRV PROV W/IN PREV 7 DAYS NOR LEAD ASSESS & MGT SRV/PX W/IN NXT 24 HR/SOON APT;5-10 MIN MED DIS 2016 DoD TELE ASSESS & MGT SRV PROV QUAL NONPHYS HLTH CARE PRO TO EST PAT,PARENT,GUARD NOT ORIG REL ASSESS & MGT SRV PROV W/IN PREV 7 DAYS NOR LEAD ASSESS & MGT SRV/PX W/IN NXT 24 HR/SOON APT;5-10 MIN MED DIS 2016 DoD TELEPHONE CALLS BY A REGISTERED NURSE TO A DISEASE MANAGEMENT PROGRAM MEMBER FOR MONITORING PURPOSES; PER MONTH 2016 DoD TELE ASSESS & MGT SRV PROV QUAL NONPHYS HLTH CARE PRO TO EST PAT,PARENT,GUARD NOT ORIG REL ASSESS & MGT SRV PROV W/IN PREV 7 DAYS NOR LEAD ASSESS & MGT SRV/PX W/IN NXT 24 HR/SOON APT;5-10 MIN MED DIS 2015 DoD TELE ASSESS & MGT SRV PROV QUAL NONPHYS HLTH CARE PRO TO EST PAT,PARENT,GUARD NOT ORIG REL ASSESS & MGT SRV PROV W/IN PREV 7 DAYS NOR LEAD ASSESS & MGT SRV/PX W/IN NXT 24 HR/SOON APT;5-10 MIN MED DIS 2015 DoD TELE ASSESS & MGT SRV PROV QUAL NONPHYS HLTH CARE PRO TO EST PAT,PARENT,GUARD NOT ORIG REL ASSESS & MGT SRV PROV W/IN PREV 7 DAYS NOR LEAD ASSESS & MGT SRV/PX W/IN NXT 24 HR/SOON APT;5-10 MIN MED DIS 2015 DoD TELE ASSESS & MGT SRV PROV QUAL NONPHYS HLTH CARE PRO TO EST PAT,PARENT,GUARD NOT ORIG REL ASSESS & MGT SRV PROV W/IN PREV 7 DAYS NOR LEAD ASSESS & MGT SRV/PX W/IN NXT 24 HR/SOON APT;5-10 MIN MED DIS 2015 DoD TELE ASSESS & MGT SRV PROV QUAL NONPHYS HLTH CARE PRO TO EST PAT,PARENT,GUARD NOT ORIG REL ASSESS & MGT SRV PROV W/IN PREV 7 DAYS NOR LEAD ASSESS & MGT SRV/PX W/IN NXT 24 HR/SOON APT;5-10 MIN MED DIS 2014 DoD TELEPHONE CALLS BY A REGISTERED NURSE TO A DISEASE MANAGEMENT PROGRAM MEMBER FOR MONITORING PURPOSES; PER MONTH 2014 DoD TELE ASSESS & MGT SRV PROV QUAL NONPHYS HLTH CARE PRO TO EST PAT,PARENT,GUARD NOT ORIG REL ASSESS & MGT SRV PROV W/IN PREV 7 DAYS NOR LEAD ASSESS & MGT SRV/PX W/IN NXT 24 HR/SOON APT;5-10 MIN MED DIS 2014 DoD TELE ASSESS & MGT SRV PROV QUAL NONPHYS HLTH CARE PRO TO EST PAT,PARENT,GUARD NOT ORIG REL ASSESS & MGT SRV PROV W/IN PREV 7 DAYS NOR LEAD ASSESS & MGT SRV/PX W/IN NXT 24 HR/SOON APT;5-10 MIN MED DIS 2013 DoD DIABETIC INDICATOR; RETINAL EYE EXAM, DILATED, BILATERAL 2013 DoD TELE ASSESS & MGT SRV PROV QUAL NONPHYS HLTH CARE PRO TO EST PAT,PARENT,GUARD NOT ORIG REL ASSESS & MGT SRV PROV W/IN PREV 7 DAYS NOR LEAD ASSESS & MGT SRV/PX W/IN NXT 24H/SOON APT; 11-20 MIN MED DIS 2013 DoD TELE ASSESS & MGT SRV PROV QUAL NONPHYS HLTH CARE PRO TO EST PAT,PARENT,GUARD NOT ORIG REL ASSESS & MGT SRV PROV W/IN PREV 7 DAYS NOR LEAD ASSESS & MGT SRV/PX W/IN NXT 24 HR/SOON APT;5-10 MIN MED DIS 2013 DoD TELE ASSESS & MGT SRV PROV QUAL NONPHYS HLTH CARE PRO TO EST PAT,PARENT,GUARD NOT ORIG REL ASSESS & MGT SRV PROV W/IN PREV 7 DAYS NOR LEAD ASSESS & MGT SRV/PX W/IN NXT 24 HR/SOON APT;5-10 MIN MED DIS 2013 DoD SCREENING PAPANICOLAOU SMEAR; OBTAINING, PREPARING AND CONVEYANCE OF CERVICAL OR VAGINAL SMEAR TO LABORATORY 2013 DoD TELE ASSESS & MGT SRV PROV QUAL NONPHYS HLTH CARE PRO TO EST PAT,PARENT,GUARD NOT ORIG REL ASSESS & MGT SRV PROV W/IN PREV 7 DAYS NOR LEAD ASSESS & MGT SRV/PX W/IN NXT 24 HR/SOON APT;5-10 MIN MED DIS 2012 DoD TELE ASSESS & MGT SRV PROV QUAL NONPHYS HLTH CARE PRO TO EST PAT,PARENT,GUARD NOT ORIG REL ASSESS & MGT SRV PROV W/IN PREV 7 DAYS NOR LEAD ASSESS & MGT SRV/PX W/IN NXT 24 HR/SOON APT;5-10 MIN MED DIS 2012 DoD TELE ASSESS & MGT SRV PROV QUAL NONPHYS HLTH CARE PRO TO EST PAT,PARENT,GUARD NOT ORIG REL ASSESS & MGT SRV PROV W/IN PREV 7 DAYS NOR LEAD ASSESS & MGT SRV/PX W/IN NXT 24 HR/SOON APT;5-10 MIN MED DIS 2012 DoD OPHTHALMOLOGICAL SERVICES: MEDICAL EXAMINATION AND EVALUATION, WITH INITIATION OR CONTINUATION OF DIAGNOSTIC AND TREATMENT PROGRAM; INTERMEDIATE, ESTABLISHED PATIENT 2011 DoD OPHTHALMOLOGICAL SERVICES: MEDICAL EXAMINATION AND EVALUATION, WITH INITIATION OR CONTINUATION OF DIAGNOSTIC AND TREATMENT PROGRAM; INTERMEDIATE, ESTABLISHED PATIENT 2011 DoD SCREENING PAPANICOLAOU SMEAR; OBTAINING, PREPARING AND CONVEYANCE OF CERVICAL OR VAGINAL SMEAR TO LABORATORY 2010 DoD DIABETIC INDICATOR; RETINAL EYE EXAM, DILATED, BILATERAL 2010 DoD INFLUENZA VIRUS VACCINE, TRIVALENT (IIV3), SPLIT VIRUS, 0.5 ML DOSAGE, FOR INTRAMUSCULAR USE 2009 DoD TELE ASSESS & MGT SRV PROV QUAL NONPHYS HLTH CARE PRO TO EST PAT,PARENT,GUARD NOT ORIG REL ASSESS & MGT SRV PROV W/IN PREV 7 DAYS NOR LEAD ASSESS & MGT SRV/PX W/IN NXT 24 HR/SOON APT;5-10 MIN MED DIS 2009 DoD TELE ASSESS & MGT SRV PROV QUAL NONPHYS HLTH CARE PRO TO EST PAT,PARENT,GUARD NOT ORIG REL ASSESS & MGT SRV PROV W/IN PREV 7 DAYS NOR LEAD ASSESS & MGT SRV/PX W/IN NXT 24H/SOON APT; 11-20 MIN MED DIS 2009 DoD DIABETIC INDICATOR; RETINAL EYE EXAM, DILATED, BILATERAL 2009 DoD TELE ASSESS & MGT SRV PROV QUAL NONPHYS HLTH CARE PRO TO EST PAT,PARENT,GUARD NOT ORIG REL ASSESS & MGT SRV PROV W/IN PREV 7 DAYS NOR LEAD ASSESS & MGT SRV/PX W/IN NXT 24 HR/SOON APT;5-10 MIN MED DIS 2009 DoD DETERMINATION OF REFRACTIVE STATE 2007 DoD MEDICAL NUTRITION THERAPY; GROUP (2 OR MORE INDIVIDUAL(S)), EACH [address] [facility] ENDOMETRIAL SAMPLING (BIOPSY) WITH OR WITHOUT ENDOCERVICAL SAMPLING (BIOPSY), WITHOUT CERVICAL DILATION, ANY METHOD (SEPARATE PROCEDURE) 2005 DoD CRUTCHES UNDERARM, WOOD, ADJUSTABLE OR FIXED, PAIR, WITH PADS, TIPS AND HANDGRIPS 2004 DoD INFUSION, NORMAL SALINE SOLUTION, 250 CC 2003 DoD INJECTION, KETOROLAC TROMETHAMINE, PER [address] [facility] SCREENING PAPANICOLAOU SMEAR; OBTAINING, PREPARING AND CONVEYANCE OF CERVICAL OR VAGINAL SMEAR TO LABORATORY 2002 [facility] SPIROMETRY, INCLUDING GRAPHIC RECORD, TOTAL AND TIMED VITAL CAPACITY, EXPIRATORY FLOW RATE MEASUREMENT(S), WITH OR WITHOUT MAXIMAL VOLUNTARY VENTILATION 2002 [facility] CARDIOVASCULAR STRESS TEST USING MAXIMAL OR SUBMAXIMAL TREADMILL OR BICYCLE EXERCISE,CONTINUOUS ELECTROCARDIOGRAPHIC MONITORING,AND/OR PHARMACOLOGICAL STRESS;W SUPERVISION,INTERPRETAT ION AND REPORT 2002 [facility] CARDIOVASCULAR STRESS TEST USING TREADMILL 2002 [facility] INFUSION, NORMAL SALINE SOLUTION, [address] [facility] ENDOMETRIAL SAMPLING (BIOPSY) WITH OR WITHOUT ENDOCERVICAL SAMPLING (BIOPSY), WITHOUT CERVICAL DILATION, ANY METHOD (SEPARATE PROCEDURE) 2001 [facility] Incision And Drainage Of Skin Absce , Simple Incision And Drainage Of Skin Abscess, Simple [id number] [facility] Medical Nutrition Therapy Group (2 or More Individual(s)) Medical Nutrition Therapy Group (2 or More Individual(s)) [id number] [facility] Medication Management By Pharmacist Each Additional 15 Min Medication Management By Pharmacist Each Additional 15 Min [id number] 2018 CLARK SCHWARZ Med Management By Pharmacist Initial 15 Min Estab Patient Med Management By Pharmacist Initial 15 Min Estab Patient [id number] 2018 CLARK SCHWARZ Internet Med Svc Qual Nonphys Healthcare Prof Estab Patient Internet Med Svc Qual Nonphys Healthcare Prof Estab Patient [id number] 2018 CLARK SCHWARZ Medication Management By Pharmacist Each Additional 15 Min Medication Management By Pharmacist Each Additional 15 Min [id number] 2018 CLARK SCHWARZ Med Management By Pharmacist Initial 15 Min Estab Patient Med Management By Pharmacist Initial 15 Min Estab Patient [id number] 2018 CLARK SCHWARZ Screening papanicolaou smear; obtaining, preparing and conveyance of cervical or vaginal smear to laboratory [address] [facility] Medication Management By Pharmacist Each Additional 15 Min Medication Management By Pharmacist Each Additional 15 Min [id number] 2018 CLARK SCHWARZ Med Management By Pharmacist Initial 15 Min Estab Patient Med Management By Pharmacist Initial 15 Min Estab Patient [id number] 2018 CLARK SCHWARZ Medication Management By Pharmacist Each Additional 15 Min Medication Management By Pharmacist Each Additional 15 Min [id number] 2017 CLARK SCHWARZ Med Management By Pharmacist Initial 15 Min Estab Patient Med Management By Pharmacist Initial 15 Min Estab Patient [id number] 2017 CLARK SCHWARZ Med Management By Pharmacist Initial 15 Min Estab Patient Med Management By Pharmacist Initial 15 Min Estab Patient [id number] 2017 CLARK SCHWARZ Med Management By Pharmacist Initial 15 Min New Patient Med Management By Pharmacist Initial 15 Min New Patient [id number] [facility] Non-Physician Phone Call To Patient/Provider Brief (5-10min) Non-Physician Phone Call To Patient/Provider Brief (5-10min) [id number] [facility] Non-Physician Phone Call To Patient/Provider Brief (5-10min) Non-Physician Phone Call To Patient/Provider Brief (5-10min) [id number] [facility] Non-Physician Phone Call To Patient/Provider Brief (5-10min) Non-Physician Phone Call To Patient/Provider Brief (5-10min) [id number] [facility] Non-Physician Phone Call To Patient/Provider Brief (5-10min) Non-Physician Phone Call To Patient/Provider Brief (5-10min) [id number] [facility] Non-Physician Phone Call To Patient/Provider Brief (5-10min) Non-Physician Phone Call To Patient/Provider Brief (5-10min) [id number] [facility] Non-Physician Phone Call To Patient/Provider Brief (5-10min) Non-Physician Phone Call To Patient/Provider Brief (5-10min) [id number] [facility] Non-Physician Phone Call To Patient/Provider Brief (5-10min) Non-Physician Phone Call To Patient/Provider Brief (5-10min) [id number] [facility] Non-Physician Phone Call To Patient/Provider Brief (5-10min) Non-Physician Phone Call To Patient/Provider Brief (5-10min) [id number] [facility] Non-Physician Phone Call To Patient/Provider Brief (5-10min) Non-Physician Phone Call To Patient/Provider Brief (5-10min) [id number] [facility] Non-Physician Phone Call To Patient/Provider Brief (5-10min) Non-Physician Phone Call To Patient/Provider Brief (5-10min) [id number] [facility] Non-Physician Phone Call To Patient/Provider Brief (5-10min) Non-Physician Phone Call To Patient/Provider Brief (5-10min) [id number] 2016 GERMAINE AGUDELO Telephone calls by a registered nurse to a disease management program member for monitoring purposes; per month 2016 VICTORINO MADRIGAL Non-Physician Phone Call To Patient/Provider Brief (5-10min) Non-Physician Phone Call To Patient/Provider Brief (5-10min) [id number] 2016 VICTORINO MADRIGAL Non-Physician Phone Call To Patient/Provider Brief (5-10min) Non-Physician Phone Call To Patient/Provider Brief (5-10min) [id number] 2015 SAI GURROLA Non-Physician Phone Call To Patient/Provider Brief (5-10min) Non-Physician Phone Call To Patient/Provider Brief (5-10min) [id number] 2015 GERMAINE AGUDELO Non-Physician Phone Call To Patient/Provider Brief (5-10min) Non-Physician Phone Call To Patient/Provider Brief (5-10min) [id number] 2015 GERMAINE AGUDELO Non-Physician Phone Call To Patient/Provider Brief (5-10min) Non-Physician Phone Call To Patient/Provider Brief (5-10min) [id number] 2015 CASEY ANDRES Non-Physician Phone Call To Patient/Provider Brief (5-10min) Non-Physician Phone Call To Patient/Provider Brief (5-10min) [id number] 2014 CASEY ANDRES Telephone calls by a registered nurse to a disease management program member for monitoring purposes; per month 2014 VICTORINO MADRIGAL Non-Physician Phone Call To Patient/Provider Brief (5-10min) Non-Physician Phone Call To Patient/Provider Brief (5-10min) [id number] 2014 VICTORINO MADRIGAL Non-Physician Phone Call To Patient/Provider Brief (5-10min) Non-Physician Phone Call To Patient/Provider Brief (5-10min) [id number] 2014 CASEY ANDRES Non-Physician Phone Call To Patient/Provider Brief (5-10min) Non-Physician Phone Call To Patient/Provider Brief (5-10min) [id number] 2013 CASEY ANDRES Determination Of Refractive State Determination Of Refractive State [id number] 2013 ROSHAN PROCTOR Diabetic indicator; retinal eye exam, dilated, bilateral 2013 ROSHAN PROCTOR Ophthalmological New Patient Start Comprehensive Care Ophthalmological New Patient Start Comprehensive Care [id number] 2013 ROSHAN PROCTOR Non-Physician Phone Call To Pt/Provider Intermed (11-20 min) Non-Physician Phone Call To Pt/Provider Intermed (11-20 min) [id number] [facility] Non-Physician Phone Call To Patient/Provider Brief (5-10min) Non-Physician Phone Call To Patient/Provider Brief (5-10min) [id number] 2013 SHAHZAD JAMES Non-Physician Phone Call To Patient/Provider Brief (5-10min) Non-Physician Phone Call To Patient/Provider Brief (5-10min) [id number] 2013 CASEY ANDRES Screening papanicolaou smear; obtaining, preparing and conveyance of cervical or vaginal smear to laboratory 2013 LUIS PROCTOR Non-Physician Phone Call To Patient/Provider Brief (5-10min) Non-Physician Phone Call To Patient/Provider Brief (5-10min) [id number] 2012 SHAHZAD JAMES Non-Physician Phone Call To Patient/Provider Brief (5-10min) Non-Physician Phone Call To Patient/Provider Brief (5-10min) [id number] 2012 SHAHZAD JAMES Non-Physician Phone Call To Patient/Provider Brief (5-10min) Non-Physician Phone Call To Patient/Provider Brief (5-10min) [id number] 2012 SHAHZAD JAMES Ophthalmological Prior Patient Start Intermediate Level Care Ophthalmological Prior Patient Start Intermediate Level Care [id number] [facility] Screening papanicolaou smear; obtaining, preparing and conveyance of cervical or vaginal smear to laboratory 2010 EFFIE DORADO Determination Of Refractive State Determination Of Refractive State [id number] [facility] Ophthalmological Prior Patient Start Comprehensive Care Ophthalmological Prior Patient Start Comprehensive Care [id number] [facility] Immunization Administration One Vaccine Immunization Administration One Vaccine [id number] 2009 ISABELLA SALAMANCA [facility] Influenza Split Virus Vaccine Age 3+ Years Intramuscular 2009 ISABELLA SALAMANCA [facility] Non-Physician Phone Call To Patient/Provider Brief (5-10min) Non-Physician Phone Call To Patient/Provider Brief (5-10min) [id number] [facility] Non-Physician Phone Call To Pt/Provider Intermed (11-20 min) Non-Physician Phone Call To Pt/Provider Intermed (11-20 min) [id number] [facility] Diabetic indicator; retinal eye exam, dilated, bilateral [address] [facility] Determination Of Refractive State Determination Of Refractive State [id number] [facility] Ophthalmological Prior Patient Start Comprehensive Care Ophthalmological Prior Patient Start Comprehensive Care [id number] [facility] Non-Physician Phone Call To Patient/Provider Brief (5-10min) Non-Physician Phone Call To Patient/Provider Brief (5-10min) [id number] [facility] Diabetic indicator; retinal eye exam, dilated, bilateral [address] [facility] Determination Of Refractive State Determination Of Refractive State [address] [facility] Visual Ross Test Intermediate Examination Visual Ross Test Intermediate Examination [id number] [facility] Ophthalmological New Patient Start Comprehensive Care Ophthalmological New Patient Start Comprehensive Care [id number] [facility] Medical Nutrition Therapy Group (2 or More Individual(s)) Medical Nutrition Therapy Group (2 or More Individual(s)) [id number] [facility] Biopsy Endometrial, Without Cervical Dilation Biopsy Endometrial, Without Cervical Dilation [id number] [facility] Screening papanicolaou smear; obtaining, preparing and conveyance of cervical or vaginal smear to laboratory [address] [facility] Cervical Pap Smear Cervical Pap Smear [id number] [facility] Medical Nutrition Therapy Re-a e ment, Intervention Medical Nutrition Therapy Re-assessment, Intervention [id number] [facility] Med Management By Pharmacist Initial 15 Min Estab Patient Med Management By Pharmacist Initial 15 Min Estab Patient [id number] [facility] Medication Management By Pharmacist Each Additional 15 Min Medication Management By Pharmacist Each Additional 15 Min [id number] [facility] Social History Combined list of available smoking, tobacco, and other social history from [facility] and [facility] facilities. Social History Type Response Date Comment Sour e Sex Representation Female (finding) 10/30/2022 Unknown Organization Sexual Orientation Ambula tory Pharmacy Gender identity Ambulator y Pharmacy This section is an empty social history section. [facility] Assessment and Plan Combined list of future care activities from Department of Defense and Veterans Affairs facilities (e.g., assessment and plan notes, appointments, orders, and referrals). Additional future care activities may be listed in the Plan of Care section. Result Assessment and Plan Date Source Assessment and Plan No data available for this section 02/20/2025 Ambulatory Pharmacy Functional Status Combined list of recent functional and cognitive assessments recorded at [facility] ([facility] Functional [place] Measurement (FIM) Scale: 1 = Total Assistance (Subject = 0% +), 2 = Maximal Assistance (Subject = 25% +), 3 = Moderate Assistance (Subject = 50% +), 4 = Minimal Assistance (Subject = 75% +), 5 = Supervision, 6 = Modified [place] (Device), 7 = Complete [place] (Timely, Safely). Assessment Date/Time Source Assessment Type Assessment Skill Assessment Score Assessment Details No data available for this section
--- NOTE | 2025-02-20 13:47 | ED.BACK ---
HPI - Back Pain/Injury General Chief Complaint: Back Pain/Injury Stated Complaint: back pain Time Seen by Provider: 02/20/25 13:22 History of Present Illness HPI Narrative: 69-year-old female with history of hypertension, diabetes, hyperlipidemia and CHF. She presents to the emergency depart with left-sided low flank pain for several days and thinks it could be a kidney stone. No reported history of stones and denies any urinary symptoms. No fever, chills, trauma or injury. No neuropathy weakness, no radiating pain down the back of her leg, history of sciatica or muscle spasm. No history of recent hospital visits. She was otherwise in her normal state of health. Has not tried anything for symptom control at home. Related Data Home Medications ?Medication ?Instructions ?Recorded ?Confirmed ?Last Taken ?Type furosemide 20 mg tablet (Lasix) 20 mg PO DAILY 05/07/20 11/09/24 10/03/22 History magnesium oxide 400 mg PO DAILY 05/15/20 11/09/24 10/03/22 History cranberry 500 mg capsule 500 mg PO DAILY 09/13/20 11/09/24 10/03/22 History multivitamin (One-A-Day Essential 1 tablet PO DAILY 12/06/20 11/09/24 Unknown History tablet) albuterol sulfate 90 mcg/actuation 1 inh inhalation QID PRN Shortness 10/03/22 11/09/24 Unknown History aerosol inhaler (ProAir HFA) Of Breath aspirin 325 mg tablet 325 mg PO DAILY 03/25/23 11/09/24 Unknown History sacubitril 49 mg-valsartan 51 mg tablet PO BID 02/11/24 11/09/24 Unknown History tablet (Entresto) docusate sodium 100 mg capsule 100 mg PO BID 05/17/24 11/09/24 Unknown History (Colace) blood-glucose sensor (Dexcom G7 07/06/24 11/09/24 Unknown History Sensor device) blood-glucose,exerciser horse,cont 07/06/24 11/09/24 Unknown History (Dexcom G7 Validation Manager) amiodarone 200 mg tablet 100 mg PO DAILY 11/08/24 11/09/24 Unknown History metoprolol tartrate 25 mg tablet 12.5 mg PO BID 11/08/24 11/09/24 Unknown History mecobalamin (vitamin B12) 1,000 1,000 mcg sublingual .COMPLEX 11/09/24 11/09/24 Unknown History mcg disintegrating tablet,sublingual Allergies Allergy/AdvReac Type Severity Reaction Status Date / Time lisinopril Allergy Unknown Hives Verified 02/20/25 12:33 adhesive AdvReac Intermediate peels off Verified 02/20/25 12:33 skin Review of Systems Review of Systems: As reviewed above in HPI [facility] Past Medical History Medical History Dysuria Hearing loss of right ear due to cerumen impaction RUQ abdominal pain GI bleed Symptomatic anemia Presence of Watchman left atrial appendage closure device Vitamin D deficiency Left thyroid nodule Treated with radioactive therapy Anemia Post-menopausal UTI (urinary tract infection) Urinary retention Subarachnoid hemorrhage Subdural hematoma Hypothyroidism (acquired) BMI 37.0-37.9, adult Type 2 diabetes mellitus Obstructive sleep apnea (~06/2020) She does not use a CPAP Atrial fibrillation status post cardioversion COPD (chronic obstructive pulmonary disease) Breast cancer CHF (congestive heart failure) Hyperlipidemia associated with type 2 diabetes mellitus Atrial fibrillation with rapid ventricular response H/O malignant neoplasm of breast Thyroid mass of unclear etiology Neuropathy H/O thyroid disease Obesity Hypertension Depression Arthritis Surgical History Surgical History Presence of right artificial hip joint H/O craniotomy Brain bleed Surgery to stop brain bleed. 01/26/21 Status post craniotomy S/P total hip arthroplasty H/O tubal ligation 06/1978 H/O lumpectomy right breast, 05/2009 History of hip replacement right, 05/2017 Family History Family History Father , 55 Type 2 diabetes mellitus with diabetic neuropathy, unspecified Family history of malignant neoplasm of stomach Alcoholic Diabetes mellitus Mother , 74 Type 2 diabetes mellitus with diabetic neuropathy, unspecified Family history of congestive heart failure Cataracts, bilateral Cerebrovascular accident Diabetes mellitus Sibling Congestive heart failure Depression Diabetes mellitus Sibling Brain tumor Diabetes mellitus type 2 with complications Blood clot in vein Diabetes mellitus Other Family history of alcoholism Family history of allergic disorder Family history of coronary artery disease Family history of malignant neoplasm Hypertension Obesity Social History Social History Social History: lives with her in a single-story home with a basement. Basement contains laundry. There is 1 large step to enter. The patient was totally independent in ADLs using a cane. 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 Patient was still active and driving. She enjoys reading and [employer] work. is retired [employer] and can assist 247. Patient is a former smoker who quit in 04/19/1992. Patient denies use of alcohol. She worked at [employer] but is now retired. She has 2 children. full code Caffeine- soda Smoking packs per day: 2 Smoking cigarettes per day: 40.0 Years smoked: 20 Smoking pack-years: 40.00 Smoking status: Former smoker Tobacco type: cigarettes Second hand tobacco smoke exposure: Yes Smoking end date: 02/06/92 Alcohol intake: never Substance use: never Substance use type: does not use Last use: 1991 Do You Feel Safe in your Home?: Yes Lack of Transportation: No Lack of Food: Never True Current Housing: I Have Housing Concerned About Future Housing: No Difficulty Paying Gas/Electric Bills: No Difficulty Paying for Meds: No Currently Unemployed: No Education: High School Diploma/GED Difficulty w/ Childcare or Family Care: No Living arrangements: with family Occupation/Education: retired Gender identity (if verbalized by the patient): Female Sexual Orientation (if Verbalized by the Patient): Straight or Heterosexual Spiritual care concerns: No Exam Narrative: GENERAL: [Well-appearing, well-nourished, and in no acute distress.] HEAD: [Normocephalic, atraumatic.] EYES: [PERRLA and EOMI.] ENT: Nares clear, no rhinorrhea or epistaxis. Mucous membranes moist. NECK: Supple. CHEST: [Clear to auscultation. No respiratory distress.] HEART: [Regular rate and rhythm]. No murmur heard. [Normal peripheral pulses.] ABDOMEN: [Soft, nondistended], nontender abdomen but left lower CVA/paraspinal tenderness, [No rigidity or guarding] EXTREMITIES: Normal range of motion. [No edema.] SKIN: Warm, dry, no rash. NEURO: [No focal deficits]. Alert and oriented [x3.] PSYCH: [Normal mood and affect.] Course Vital Signs Vital signs: Vital Signs Temperature 36.4 C L 02/20/25 12:33 Pulse Rate 75 02/20/25 12:33 Respiratory Rate 16 02/20/25 12:33 Blood Pressure 126/63 02/20/25 12:33 Pulse Oximetry 95 02/20/25 12:33 Oxygen Delivery Room Air 02/20/25 12:33 Temperature 36.4 C L 02/20/25 16:24 Pulse Rate 66 02/20/25 16:24 Respiratory Rate 16 02/20/25 16:24 Blood Pressure 116/58 L 02/20/25 16:24 Pulse Oximetry 96 02/20/25 16:24 Oxygen Delivery Room Air 02/20/25 12:33 MDM - Back Pain/Injury MDM Narrative Medical decision making narrative: 69-year-old female with history of hypertension, hyperlipidemia, diabetes and CHF presenting with very pinpoint localized left lower flank pain without any reported injury or urinary symptoms. Patient thinks it could be a kidney stone. No history of stones. No neuropathy or weakness, no sensation deficits, urinary issues or incontinence. She has normal vital signs with any tachycardia, fever, hypoxia or blood pressure concerns. Examination reproduces tenderness to the left flank near the CVA/paraspinal region. No overlying skin changes there. Differential diagnosis includes muscle spasm, musculoskeletal pain, urinary tract infection, pyelonephritis, kidney stone, renal colic. Low suspicion intra-abdominal process otherwise such as infection or retroperitoneal hematoma. CT without contrast was obtained, CBC, CMP, urinalysis obtained. She was given morphine and fluids and re-evaluated. Laboratory studies revealed no leukocytosis or anemia. Normal platelet count. Electrolytes unremarkable. Normal renal function. Normal LFTs. Normal lipase. Urinalysis shows urinary tract infection for which she will be treated with Bactrim. CT of the abdomen pelvis reveals no kidney stone, ureteral stone or bladder stone. No hydronephrosis. Moderate fat containing umbilical hernia, cholelithiasis and questionable fibroids. Patient remains hemodynamically stable with pain or control, and appropriate for outpatient discharge with prescription for Bactrim and return precautions. Medical Records Attestation: I reviewed the patient's medical records. Lab Data Attestation: I reviewed the patient's lab results. 02/20/25 14:01 02/20/25 14:01 Labs: Lab Results 02/20/25 02/20/25 Range/Units 14:01 15:10 WBC 6.0 (4.5-10.0) K/mm3 RBC 4.06 L (4.2-5.4) M/mm3 Hgb 13.1 (12.0-15.0) g/dL Hct 40.1 (37.0-47.0) % MCV 98.8 (80-100) fl MCH 32.3 (26-34) pg MCHC 32.7 (32-36) g/dl RDW 12.2 (11.5-14.5) % Plt Count 147 L (150-375) k/mm3 MPV 10.6 H (7.4-10.4) fl Immature Gran % (Auto) 0.5 (0-0.5) % Neut % (Auto) 60.2 (45.5-73.1) % Lymph % (Auto) 26.9 (18.3-44.2) % [place] % (Auto) 9.0 H (2.6-8.5) % Eos % (Auto) 2.7 (0-4.4) % Baso % (Auto) 0.7 (0.2-1.2) % Lymph # (Auto) 1.62 (0.9-3.2) K/mm3 [place] # (Auto) 0.5 (0.1-0.6) K/mm3 Eos # (Auto) 0.2 (0-0.3) K/mm3 Baso # (Auto) 0.0 (0.0-0.1) K/mm3 Abs Immat Gran (auto) 0.03 (0.00-0.031) K/mm3 Absolute Neuts (auto) 3.6 (1.3-6.7) K/mm3 Absolute Nucleated RBC 0.000 (0.0-0.012) K/mm3 Nucleated RBC % 0.0 (0.0-0.2) % Sodium 142 (137-145) mmol/L Potassium 4.0 (3.4-5.0) mmol/L Chloride 107 (98-107) mmol/L Carbon Dioxide 26 (22-30) mmol/L Anion Gap 9 (4-12) mmol/L BUN 17 (7-17) mg/dL Creatinine 0.81 (0.7-1.0) mg/dL Estim Creat Clear Calc 68 ml/min Estimated GFR > 60 (59 - ) Glucose 79 (65-110) mg/dL Calcium 9.3 (8.4-10.2) mg/dL Total Bilirubin 0.8 (0.2-1.3) mg/dL AST 21 (14-36) U/L ALT 20 (6-35) U/L Alkaline Phosphatase 48 (38-126) U/L Total Protein 7.2 (6.3-8.2) g/dL Albumin 4.0 (3.5-5.1) g/dL Lipase 72 (23-300) U/L Urine Color Yellow (Yellow) Urine Appearance Clear (Clear) Urine pH 5.5 (5.0-9.0) Ur Specific [place] 1.023 (1.001-1.035) Urine Protein Negative (Negative) mg/dL Urine Glucose (UA) Negative (Negative) mg/dL Urine Ketones Trace H (Negative) mg/dL Ur Blood (Man) Negative (Negative) Urine Nitrate Positive H (Negative) Urine Bilirubin Negative (Negative) Urine Urobilinogen 1.0 (<2.0) mg/dL Leukocyte Esterase Rfl 2+ H (Negative) RONNIE/UL Urine RBC 0-2 (0-2) /hpf Urine WBC 11-20 H (0-3) /hpf Ur Squamous Epith Cells Occasional (Few) /hpf Urine Bacteria 4+ H /hpf Urine Casts 0-2 Imaging Data Attestation: I personally reviewed and interpreted this imaging study as follows: My impression: Impressions Abdomen/Pelvis CT 02/20/25 14:20 Impression: No renal, ureteral, or bladder stone. No hydronephrosis. Moderate fat-containing umbilical hernia. Cholelithiasis. Questionable uterine fibroids. Discharge Plan Discharge Clinical Impression: Acute UTI, Abdominal wall pain in left flank Patient Disposition: Home Condition: Stable Instructions: Antibiotic Form, Urinary Tract Infection in Women (ED) Additional Instructions: Your CT scan shows no signs of a kidney stone or acute intra-abdominal process. You do have an umbilical hernia that is not concerning but might need attention outpatient with your regular doctor. You do have a urinary tract infection which could be contributing towards her symptoms but your kidney appears fine on the imaging studies and your kidney function and laboratory studies are good. We will treat this with the course of antibiotics. Follow-up with regular doctor. Return with any emergencies. Patient Language: Filipino Prescriptions: New sulfamethoxazole-trimethoprim [Bactrim DS] 800-160 mg tablet 1 tablet PO Q12H Qty: 14 0RF No Action magnesium oxide 400 mg magnesium capsule 400 mg PO DAILY Patient Comments: pt states she takes 300 mg multivitamin [One-A-Day Essential] Tablet 1 tablet PO DAILY mecobalamin (vitamin B12) 1,000 mcg tablet,disintegrating 1,000 mcg sublingual .COMPLEX Rx Instructions: 1,000 mcg sublingually every other day; place tablet under tongue and allow to dissolve for at least30 secs before swallowing aspirin 325 mg tablet 325 mg PO DAILY (DME) lancets [FreeStyle Lancets] 28 gauge misc See Rx Instructions .Route Qty: 200 1RF Rx Instructions: check twice daily (DME) lancing device Misc See Rx Instructions .Route Qty: 1 0RF Rx Instructions: As directed pantoprazole [Protonix] 20 mg tablet,delayed release (DR/EC) 20 mg PO QAM Qty: 90 2RF sertraline 25 mg tablet 25 mg PO DAILY Qty: 90 2RF fluticasone propionate [Flonase Allergy Relief] 50 mcg/actuation spray,suspension 1 spray intranasal BID Qty: 48 0RF Rx Instructions: administer into each nostril glucagon 3 mg/actuation spray,non-aerosol 3 mg intranasal ONCE Qty: 2 4RF Rx Instructions: as a single dose; may repeat once in 15 minutes if no response Entresto 49-51 mg tablet PO BID docusate sodium [Colace] 100 mg capsule 100 mg PO BID Ozempic 2 mg/dose (8 mg/3 mL) pen injector 2 mg subcut WEEKLY 90 Days Qty: 9 4RF (DME) pen needle, diabetic [BD Ultra-Fine Orig Pen Needle] 29 gauge x 1/2 needle See Rx Instructions .Route Qty: 100 3RF Rx Instructions: Use with insulin once daily (DME) Dexcom G7 Sensor Device See Rx Instructions .Route Rx Instructions: As directed (DME) Dexcom G7 Validation Manager Misc See Rx Instructions .Route Rx Instructions: As directed metoprolol tartrate 25 mg tablet 12.5 mg PO BID icosapent ethyl [Vascepa] 1 gram capsule 2 g PO BID 90 Days Qty: 360 1RF levothyroxine 112 mcg tablet 112 mcg PO DAILY Qty: 90 1RF gabapentin 300 mg capsule 300 mg PO TID 90 Days Qty: 270 2RF insulin glargine [Lantus Solostar U-100 Insulin] 100 unit/mL (3 mL) insulin pen 65 unit subcut QAM 90 Days Qty: 60 3RF cranberry 500 mg Capsule 500 mg PO DAILY amiodarone 200 mg tablet 100 mg PO DAILY Rx Instructions: Take 1/2 tablet daily furosemide [Lasix] 20 mg Tablet 20 mg PO DAILY albuterol sulfate [ProAir HFA] 90 mcg/actuation Hfa Aerosol Inhaler 1 inh INHALATION QID PRN (Reason: Shortness Of Breath) ferrous sulfate 325 mg (65 mg iron) tablet 325 mg PO DAILY 90 Days Qty: 90 3RF atorvastatin 20 mg tablet 20 mg PO DAILY Qty: 90 2RF metformin 500 mg tablet extended release 24 hr 1,000 mg PO BID 90 Days Qty: 360 1RF Follow-up/Referrals: Aba Song MD [Primary Care Provider] - Time of Disposition: 15:45
[2025-02-20] MEDS: LACTATED RINGERS 1,000 ML 999 ML IV CONT (14:07)
[2025-02-20] MEDS: ACETAMINOPHEN 500 MG TABLET 1000 MG PO (14:07)
[2025-02-20] MEDS: MORPHINE SULFATE (*CRX) 4 MG/ML INJ IV PUSH (14:08)
[2025-02-20 14:12] VITALS: BP 109/73; PULSE 72; RESP 18; O2SAT 94
[2025-02-20 14:14] LABS: Basophils Percent Auto 0.7 % (0.2-1.2); Eosinophils Absolute Auto 0.2 K/mm3 (0-0.3); Eosinophils Percent Auto 2.7 % (0-4.4); Hematocrit 40.1 % (37.0-47.0); Hemoglobin 13.1 g/dL (12.0-15.0); Immature Granulocyte Absolute 0.03 K/mm3 (0.00-0.031); Immature Granulocyte Percent A 0.5 % (0-0.5); Lymphocytes Absolute Auto 1.62 K/mm3 (0.9-3.2); Lymphocytes Percent Auto 26.9 % (18.3-44.2); Mean Corpuscular HGB Conc 32.7 g/dl (32-36); Mean Corpuscular Hemoglobin 32.3 pg (26-34); Mean Corpuscular Volume 98.8 fl (80-100); Mean Platelet Volume 10.6 fl (7.4-10.4); Monocytes Absolute Auto 0.5 K/mm3 (0.1-0.6); Neutrophils Absolute Auto 3.6 K/mm3 (1.3-6.7); Neutrophils Percent Auto 60.2 % (45.5-73.1); Platelet Count Result 147 k/mm3 (150-375); Red Blood Count 4.06 M/mm3 (4.2-5.4); Red Cell Distribution Width 12.2 % (11.5-14.5)
[2025-02-20 14:22] LABS: Alanine Aminotransferase 20 U/L (6-35); Alkaline Phosphatase 48 U/L (38-126); Anion Gap 9 mmol/L (4-12); Aspartate Amino Transferase 21 U/L (14-36); Bilirubin,Total 0.8 mg/dL (0.2-1.3); Blood Urea Nitrogen 17 mg/dL (7-17); Calcium 9.3 mg/dL (8.4-10.2); Carbon Dioxide 26 mmol/L (22-30); Chloride 107 mmol/L (98-107); Estimated CRCL calculation 68 ml/min; Estimated Glomerular Filt Rate > 60; Glucose 79 mg/dL (65-110); Lipase 72 U/L (23-300); Sodium 142 mmol/L (137-145); Total Protein 7.2 g/dL (6.3-8.2)
--- OUTSIDE RECORDS SUMMARY | 2025-02-20 14:51 | XMS_ITS | Clinical Summary ---
Author Organization [facility] Address [address] [place] [id number] Care Team Providers Care Rigging Engineer Name Role Phone Unavailable Primary Care Provider [...] 1 - Tdap) 1973 Mammogram Screening 1994 Pneumococcal Vaccine: 50+ Ye ars (1 of 1 - PCV) 2004 Zoster Vaccines (1 of 2) 2004 Dexa Scan (General) 2019 COVID-19 Vaccine (2023-2 5 season) 2024 RSV Immunization or 60+ Years (1 [...]
--- OUTSIDE RECORDS SUMMARY | 2025-02-20 14:51 | XMS_ITS ---
Author Organization [facility] [address] Address [address] [place] [address] Care Team Providers Care Telegraphic Typewriter Mechanic Name Role Phone Aba Song MD Primary [...] (01/26/2021): Added automatically from request for surgery [id number] 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 current use of amiodarone 12/19/2020 Chronic [...] Watchman via right femoral vein with 14 Hungarian sheath. No evidence of bleeding or hematoma [...] watchman via right femoral vein with 14 Hungarian sheath. No evidence of bleeding or hematoma [...]
--- OUTSIDE RECORDS SUMMARY | 2025-02-20 14:51 | XMS_ITS | Encounter Summary ---
Author Organization [facility] Healthcare Address [address] [place] [address] Care Team Providers Care Front Desk Attendant Name Role Phone Aba Song MD Primary Care Provide r Encounter Details Date Type Department Care Team (Late st Contact Info) Description 05/11/2019 Telephone [facility] Advanced Medicine Radiation Oncology [address] [facility] [place] [address] Jose Hendricks CMA Social History Tobacco Use Types Packs/Day Years Used Date Smoking Tobacco: Former Comments Unknown Sex and Gender Information Value Date Recorded Sex Assigned at Not on file Legal Sex Female 4:56 AM PRODUCTION WELDER Gender Identity Female 04/16/2020 9:15 AM CDT Sexual Orientation Straight 04/16/2020 9: 15 AM CDT documented as of this encounter Plan of Treatment Not on file documented as of this encounter Visit Diagnoses Not on filedocumented in this encounter Additional Health Concerns Infection Onset Date Last Indicated Resolved Time MDR gram neg/ESBL 04/22/2021 04/22/2021 documented as of this encounter Care Teams Front Desk Attendant Relationship Specialty Start Date End Date bAa Song MD [address] [place] [address] PCP - General Emergency Medicine 03/15/20 documented as of this encounter
--- OUTSIDE RECORDS SUMMARY | 2025-02-20 14:51 | XMS_ITS | Referral Summary ---
Author Organization [facility] [place] [address] Address [address] [place] [address] Care Team Providers Care Medical Field Representative Name Role Phone Aba Song MD Primary [...] 0 01/27/2024 Body mass index 40.0-44.9, adult (CMS/[facility]) 01/26 Chest pressure 05/26/2022 Left leg swelling [...] 112 mcg daily. Type 2 diabetes mellitus, [facility] long-term current use of insulin 04/23/2021 Assessment [...] (01/26/2021): Added automatically from request for surgery [id number] back tacker current use of amiodarone 12/19/2020 Chronic anticoagulation [...] Watchman via right femoral vein with 14 Jordanian sheath. No evidence of bleeding or hematoma [...] watchman via right femoral vein with 14 Jordanian sheath. No evidence of bleeding or hematoma [...] often do you attend chur ch or jewish services? Never 01/29/2021 Do you belong to any clubs o r organizations such as nondenominational groups, unions, fraternal or athletic groups, or [...] on file Legal Sex Female 4:56 AM GOLF COURSE SUPERINTENDENT Gender Identity Female 04/16/2020 9:15 AM CDT Sexual Orientation Straight 04/16/2020 9: 15 AM CDT Last Filed Vital Signs Vital Sign Reading Time Taken Comments Blood Pressure 134/86 10/25/2024 10:25 AM GOLF COURSE SUPERINTENDENT Pulse 71 10/25/2024 10:25 AM GOLF COURSE SUPERINTENDENT Temperature 37 C (98.6 F) 05/05/2022 10:59 AM CDT Respiratory Rate 29 01/02/2022 10:40 AM CDT Oxygen Saturation 97% 10/25/2024 10:25 AM GOLF COURSE SUPERINTENDENT Inhaled Oxygen Concentration - - Weight 108.9 kg (240 lb) 10/25/2024 10:25 AM GOLF COURSE SUPERINTENDENT Height 165.1 cm (5' 5) 10/25/2024 10:25 AM GOLF COURSE SUPERINTENDENT Body Mass Index 39.94 10/25/2024 10:25 AM GOLF COURSE SUPERINTENDENT Plan of Treatment Not on file Medical Devices Implanted Type Area Fiber Drier Operator Device Identifier Shelf Expiration Date Model / Serial / Lot [place] Craniomaxillof acial [id number] Duramatrix-Onl ay Plus 7x5in Regeneration Membrane Patch Dural - S000 - [id number] Implanted:Qty: 1 on 01/26/2021 by Zak Robison MD at [facility] Graft Right: Cranial Farideh Craniomaxillofaci al [id number] 07/07/2023 [id number] / 000 / [id number]? [id number] Other - See Comments Other - see comments Hip Description:Right hip replac ement 2017 [employer] [id number] Occluder Cardiovascular 20mm Dlv Sys Watchman Flx Strl - [id number] - [id number] Implanted:Qty: 1 on 11/19/2021 by Rajiv Bazan MD PhD at [facility] Other - see comments [employer] 10/17/2023 [id number] / [id number] / [id number] Description:Watchman karen [place] Craniomaxillof acial [id number] Lorton Neuro Iii 20mm Low Profile Tab Cover [place] - S000 - [id number] Implanted:Qty: 6 on 01/26/2021 by Zak Robison MD at [facility] Plate Right: Cranial Farideh Craniomaxillofaci al [id number] / 000 / 000 Farideh Craniomaxillof acial 56-22516 [place]orton Neuro 3 1.5mm 4mm Self Drill Axial Stability Screw Bone Latex Free - S000 - [id number] Implanted:Qty: 24 on 01/26/2021 by Zak Robison MD at [facility] Screw Right: Cranial [place] Craniomaxillofaci al 56-60053 / 000 / 000 Watchman N/A: Heart Device Karen Watchman Procedure - [id number] Implanted:Qty: 1 on 11/20/2021 by Rajiv Bazan MD PhD at [facility] Ask Ziggy WMPERPROCDE VICE 1-3 PC / / Procedures Procedure Name Priority Date/Time Associated Diagnosis Comments LIPID PANEL Routine 10/25/2024 5:53 PM GOLF COURSE SUPERINTENDENT COMPREHENSIVE METABOLIC PANEL Routine 06/06/2022 back tacker current use of amiodarone POCT HEMOGLOBIN A1C Routine 11/06/2021 3 :48 PM GOLF COURSE SUPERINTENDENT from Last 3 Months or Most Recently Relevant to Health Maintenance Results * Lipid panel (10/25/2024 5:53 PM GOLF COURSE SUPERINTENDENT) Pathologist [facility] SCRIBED Cholesterol, Total 111 <200 EXTERNAL LAB [...] N/A EXTERNAL LAB SCRIBED eGFR in NonAfrican Liberian 81 < or = 60 EXTERNAL LAB Blood 06/06/2022 Richard Collier MD LAB BLOOD ORDERABLES Edit ed Result - Final EXTERNAL LAB * (ABNORMAL) POCT hemoglobin A1c (11/06/2021 3:48 PM GOLF COURSE SUPERINTENDENT) Hgb A1C, POC 6.7(H) 4.0 - 5.6 % [facility] Est Average Gluc POC 146 mg/dL [facility] Comment: The ADA recommends reporting an estimated Average Glucose (eAG) with all Hemoglobin A1c results using the equation derived from a study of 507 normal and diabetic adults. Minority populations were underrepresented and children were not included. (Diabetes Care 31:2948-5011, 2008). The eAG is not equivalent to a fasting glucose. Blood 11/06/2021 3:48 PM GOLF COURSE SUPERINTENDENT 11/06/2021 3:48 PM GOLF COURSE SUPERINTENDENT Rajiv Bazan MD PhD POINT OF CARE TEST ORDERAB LES Final Result [facility] Department [place] [address] from Last 3 Months or Most Recently Relevant to Health Maintenance Additional Health Concerns Infection Onset Date Last Indicated MDR gram neg/ESBL 04/22/2021 04/22/2021 Insurance MEDICARE FOR LIFE MEDICARE FOR LIFE MEDICARE [facility] Advance Directives For more information, please contact: [phone] * Full Code (Latest Code Status on File) Date Activated Date Inactivated Comments 11/19/2021 6:44 PM 11/20/2021 4:46 PM * Full Code Date Activated Date Inactivated Comments 04/21/2021 6:06 AM 04/23/2021 5:55 PM * Full Code Date Activated Date Inactivated Comments 01/26/2021 5:52 AM 02/07/2021 8:57 PM Care Teams Medical Field Representative Relationship Specialty Start Date End Date Aba Song MD [address] [place] [address] PCP - General Emergency Medicine 03/15/20
--- OUTSIDE RECORDS SUMMARY | 2025-02-20 14:52 | XMS_ITS | Clinical Summary ---
Author Organization [facility] [address] Address [address] [place] [address] Care Team Providers Care Sander And Polisher Name Role Phone Aba Song MD Primary [...] 0 01/27/2024 Body mass index 40.0-44.9, adult (CMS/[facility]) 01/26 Chest pressure 05/26/2022 Left leg swelling [...] 112 mcg daily. 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 No evidence of bleeding or hematoma [...] watchman via right femoral vein with 14 Bahamian sheath. No evidence of bleeding or hematoma [...] Diabetes Father Thalia Shereen Cancer Maternal Grandmother Washington Hinkle Clotting disorder Mother Elizabeth Shereen Diabetes [...] 1 Kacey Ranjan Cancer Sister 2 Gaye Ismran Teodoro- Begum Heart disease Sister 2 Gaye [...] often do you attend chur ch or orthodox services? 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 Gender Identity Female 04/16/2020 9:15 AM CDT Sexual Orientation Straight 04/16/2020 9: 15 AM CDT Obstetrics History Last Filed Vital Signs Vital Sign Reading Time Taken Comments Blood Pressure 134/86 10/25/2024 10:25 AM WAGE AND SALARY ADMINISTRATOR Pulse 71 10/25/2024 10:25 AM WAGE AND SALARY ADMINISTRATOR Temperature 37 C (98.6 F) 05/05/2022 10:59 AM CDT Respiratory Rate 29 01/02/2022 10:40 AM CDT Oxygen Saturation 97% 10/25/2024 10:25 AM WAGE AND SALARY ADMINISTRATOR Inhaled Oxygen Concentration - - Weight 108.9 kg (240 lb) 10/25/2024 10:25 AM WAGE AND SALARY ADMINISTRATOR Height 165.1 cm (5' 5) 10/25/2024 10:25 AM WAGE AND SALARY ADMINISTRATOR Body Mass Index 39.94 10/25/2024 10:25 AM WAGE AND SALARY ADMINISTRATOR Plan of Treatment Health Maintenance Due Date [...] 03/08, 05/26/2013 Medical Devices Implanted Type Area Lithopone Charger Device Identifier Shelf Expiration Date Model / Serial / Lot Farideh Craniomaxillof acial [id number] Duramatrix-Onl ay Plus 7x5in Regeneration Membrane Patch Dural - S000 - [id number] Implanted:Qty: 1 on 01/26/2021 by Zak Robison MD at [facility] Graft Right: Cranial [place] Craniomaxillofaci al [id number] 07/07/2023 [id number] / 000 / [id number]? [id number] Other - See Comments Other - see comments Hip Description:Right hip replac ement 2017 [employer] [id number] Occluder Cardiovascular 20mm Dlv Sys Watchman Flx Strl - [id number] - [id number] Implanted:Qty: 1 on 11/19/2021 by Rajiv Bazan MD PhD at [facility] Other - see comments [employer] 10/17/2023 [id number] / [id number] / [id number] Description:Watchman karen [place] Craniomaxillof acial [id number] [place] Neuro Iii 20mm Low Profile Tab Cover [place] - S000 - [id number] Implanted:Qty: 6 on 01/26/2021 by Zak Robison MD at [facility] Plate Right: Cranial Farideh Craniomaxillofaci al 53-30531 / 000 / 000 [place] Craniomaxillof acial [id number] [place] Neuro 3 1.5mm 4mm Self Drill Axial Stability Screw Bone Latex Free - S000 - [id number] Implanted:Qty: 24 on 01/26/2021 by Zak Robison MD at [facility] Screw Right: Cranial Farideh Craniomaxillofaci al 56-19807 / 000 / 000 Watchman N/A: Heart Device Karen Watchman Procedure - [id number] Implanted:Qty: 1 on 11/20/2021 by Rajiv Bazan MD PhD at [facility] [employer] WMPERPROCDE VICE 1-3 PC / / Procedures Procedure Name Priority Date/Time Associated Diagnosis Comments LIPID PANEL Routine 10/25/2024 5:53 PM WAGE AND SALARY ADMINISTRATOR COMPREHENSIVE METABOLIC PANEL Routine 06/06/2022 alf current use of amiodarone POCT HEMOGLOBIN A1C Routine 11/06/2021 3 :48 PM WAGE AND SALARY ADMINISTRATOR from Last 3 Months or Most Recently Relevant to Health Maintenance Results * Lipid panel (10/25/2024 5:53 PM WAGE AND SALARY ADMINISTRATOR) SCRIBED Cholesterol, Total 111 <200 EXTERNAL LAB [...] N/A EXTERNAL LAB SCRIBED eGFR in NonAfrican Salvadorean 81 < or = 60 EXTERNAL LAB Blood 06/06/2022 Richard Collier MD LAB BLOOD ORDERABLES Edit ed Result - Final EXTERNAL LAB * (ABNORMAL) POCT hemoglobin A1c (11/06/2021 3:48 PM WAGE AND SALARY ADMINISTRATOR) Hgb A1C, POC 6.7(H) 4.0 - 5.6 % [facility] Est Average Gluc POC 146 mg/dL [facility] Comment: The ADA recommends reporting an estimated Average Glucose (eAG) with all Hemoglobin A1c results using the equation derived from a study of 507 normal and diabetic adults. Minority populations were underrepresented and children were not included. (Diabetes Care 31:7368-1064, 2008). The eAG is not equivalent to a fasting glucose. Blood 11/06/2021 3:48 PM WAGE AND SALARY ADMINISTRATOR 11/06/2021 3:48 PM WAGE AND SALARY ADMINISTRATOR Rajiv Bazan MD PhD POINT OF CARE TEST ORDERAB LES Final Result Performing Organization Address [facility] Co de Phone Number [facility] Department [place] [address] from Last 3 Months or Most Recently Relevant to Health Maintenance Additional Health Concerns Infection Onset Date Last Indicated MDR gram neg/ESBL 04/22/2021 04/22/2021 Insurance MEDICARE FOR LIFE MEDICARE FOR LIFE MEDICARE [facility] Address: [address] [address] FOR LIFE Advance Directives For more information, please contact: [phone] * Full Code (Latest Code Status on File) Date Activated Date Inactivated Comments 11/19/2021 6:44 PM 11/20/2021 4:46 PM * Full Code Date Activated Date Inactivated Comments 04/21/2021 6:06 AM 04/23/2021 5:55 PM * Full Code Date Activated Date Inactivated Comments 01/26/2021 5:52 AM 02/07/2021 8:57 PM Care Teams Sander And Polisher Relationship Specialty Start Date End Date Aba Song MD [address] [place] [address] PCP - General Emergency Medicine 03/15/20
--- OUTSIDE RECORDS SUMMARY | 2025-02-20 14:52 | XMS_ITS | Clinical Summary ---
Author Organization [facility] Address [address] 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 Active metoprolol tartrate (LOPRESSOR) 50 mg tablet [...] - 1-dose 75+ series) 2029 Care Teams Computer Operations Manager Relationship Specialty Start Date End Date Zen Cunningham MD [address] [place] [phone] PCP - General Internal Medicine 05/27/17
--- OUTSIDE RECORDS SUMMARY | 2025-02-20 14:52 | XMS_ITS | Encounter Summary ---
Author Organization 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45 L [facility] FEV1 %PRE PRED 108 % [facility] FEV1/FVC PRE 84.6 % [facility] FRC PL PRE 2.93 L [facility] FRC PL %PRE PRED 103 % [facility] RV PRE 2.35 L [facility] RV %PRE PRED 111 % [facility] TLC PRE 5.35 L [facility] TLC %PRE PRED 107 % [facility] DLCO PRE 14.5 ml/min/mmH g [facility] DLCO %PRE PRED 75 % [facility] Anatomical Region Laterality Modality PFT 06/20/2022 12:5 1 PM CDT Narrative 06/24/2022 7:45 AM CDT PFT performed at:->External us Richard Collier MD PFT ORDERABLES Final Res ult documented in this encounter Visit Diagnoses 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
--- OUTSIDE RECORDS SUMMARY | 2025-02-20 14:53 | XMS_ITS | Continuity of Care Document ---
Author Name [facility] Organization [facility] Care Team Providers Care Sample Sawyer Name Role Phone [facility] Unavailable Unavailable Problems [...] with your doctor before becoming . 01/17/2025 [id number] 4 [address] [place] [address] Dez [place]ADA [facility] [place] empaglifloz in 25 mg oral tablet TAKE ONE TABLET IN THE MORNING, # 90 EA, 2 total refill(s ), Acute Complet ed 06/09/2023 2 2022 90.0 Ambulat ory Pharmac y Ergocalcife rol (Vitamin D Eq.) Capsule Conventiona l 1.25 mg Oral 02/10/2025 [id number] 4 [address] [place] [address] Dez [place]ADA [facility] [place] ergocalcife rol 1.25 mg (50,000 units) capsule [...] prescrip tion.Do not take if . 02/10/2025 [id number] 4 [address] [place] [address] Dez [place]ADA [facility] [place] fluconazole 150 mg tablet See Instruct ions, [...] or use exactly as directed . 01/17/2025 [id number] 4 [address] [place] [address] Dez QUEZADA [place] [place] losartan (U/D) 25 MG ORAL TAB Be careful if taking OTCs.Jose e or use exactly as directed .Do not take if . 01/10/2025 [id number] 4 [address] [place] [address] Dez QUEZADA [place] [place] losartan 25 mg tablet 25 mg, Oral, [...] driving. May cause drowsine ss/dizzi ness. 12/20/2024 [id number] 4 2023 90 [employer] Dez QUEZADA [place] [place] metoprolol tartrate 25 mg tablet See Instruct [...] before becoming .Store in original package. 01/26/2025 [id number] 4 2023 180 [facility] Dez QUEZADA [place] [place] semaglutide (2mg dose) 8mg/3mL inj-pen [3 mL] [...] 6.0 Ambulat ory Pharmac y U-300 (conc) Addison Gonsalez glargine 300 units/mL [3mL] See Instruct ions, [...] hives active 9 [employer] Dez PEÑALOZAB [place] [place] Immunizations Combined list of available immunizations from the Department of Defense and Veterans Affairs facilities. 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 complet ed RSV vaccine, preF A-preF B, recombina nt 08/09/24 Given 0055C-3 [facility] influenza, high-dose, quadrivalent 2020 ALUL, () [...] injectable, quadrivalent- pf 2017 zzLef t Arm [id number] Seqirus complet ed influenza , injectabl e, quadrival ent-pf 06/21/18 Given Ambulat ory Pharmac y Influenza, injectable, quadrivalent, preservative free 1 2017 Unknown, Provider [id number] 150 Seqirus (SEQ) complet ed Influenza , injectabl e, quadrival ent, preservat marylou free DoD Influenza, inj, MDCK, quadrivalent- pf 2016 zzLef t Arm [id number] 171 Se[employer] complet ed Influenza , inj, MDCK, quadrival ent-pf 07/22/17 Given Ambulat ory Pharmac y Influenza, injectable, Madin Reading Canine Kidney, preservative free, quadrivalent 1 2016 Unknown, Provider [id number] 171 Seqirus (SEQ) complet ed Influenza , injectabl e, Madin Christina Canine Kidney, preservat marylou free, quadrival ent DoD influenza, seasonal, injectable-pf 2013 zzLef t Arm [id number] 140 Novartis Dermal Lifetica complet ed influenza , seasonal, injectabl e-pf 06/21/14 Given Ambulat ory Pharmac y Influenza, seasonal, injectable, preservative free 1 2013 Unknown, Provider [id number] 140 Tackktica l Ninoska. (NOV) complet ed Influenza , seasonal, injectabl e, preservat marylou free DoD influenza, seasonal, injectable-pf 2012 zzLef t Arm [id number] 140 sanofi pasteur complet ed influenza , seasonal, injectabl e-pf 07/15/13 Given Ambulat ory Pharmac y Influenza, seasonal, injectable, preservative free 3 2012 Unknown, Provider [id number] 140 Sanofi Pasteur (PMC) complet ed Influenza , seasonal, injectabl e, preservat marylou free DoD zoster vaccine live 2012 zzLef t Arm [id number] Merck & Company Inc complet ed zoster vaccine live 05/26/13 Given Ambulat ory Pharmac y zoster vaccine, live 1 2012 Unknown, Provider [id number] 121 Merck (MSD) complet ed zoster vaccine, live DoD influenza, seasonal, injectable-pf 2011 zzLef t Arm [id number] 140 sanofi pasteur complet ed influenza , seasonal, injectabl e-pf 06/28/12 Given Ambulat ory Pharmac y Influenza, seasonal, injectable, preservative free 2 2011 Unknown, Provider [id number] 140 Sanofi Pasteur ([facility]) complet ed Influenza , seasonal, injectabl e, preservat marylou free DoD influenza virus vaccine,split 2009 zzL t Arm [id number] 15 CSL Behring complet ed influenza virus vaccine,s plit 07/24/10 Given Ambulat ory Pharmac y influenza virus vaccine, split virus (incl. purified surface antigen)-reti red CODE 1 2009 Unknown, Provider [id number] 15 CSL Biotherapies[employer] Inc. (CSL) complet ed influenza virus vaccine, split virus (incl. purified surface antigen)- retired CODE DoD tetanus, diphtheria, acellular pertu is 2009 zzLef t Arm [id number] 115 GlaxoSmithKli ne complet ed tetanus, [...] is vaccine, adsorbed 1 2009 Unknown, Provider [id number] 3CA 115 [employer] (SKB) complet ed tetanus toxoid, reduced diphtheri [...] High: 160-189 mg/dL Very High: 190 mg/dL [facility] Chemistry Chol/HDL 3 mg/dL 06/[address] [place], [place] [address] Chemistry Cholesterol Total 122 mg/dL 06/24 N Interpretive Data: According to the [place] [employer]: AGES 0-19: Desirable: < 170 mg/dL Borderline High: 170-199 mg/dL High Blood Cholesterol: >/= 200 mg/dL ADULTS: Desirable < 200 mg/dL Borderline High: 200-239 mg/dL High Blood Cholesterol: >/= 240 mg/dL [facility] [employer] Chemistry HDL Cholesterol 41 mg/dL 40 - 59 06/24 N Interpretive Data: HDL (HIGH DENSITY LIPOPROTEIN) : ADULTS: Low: < 40 mg/dL High: >/= 60 mg/dL AGES 0 -19: Low: < 40 mg/dL Borderline Low: 40 - 45 mg/dL Acceptable: > 45 mg/dL [facility] [employer] Chemistry Triglycerid es 170 mg/dL 7 - 149 06/24 H Interpretive Data: AGES 0-9: Desirable: < 75 mg/dL Borderline High: 75-99 mg/dL High: >/= 100 mg/dL AGES 10-19: Desirable: < 90 mg/dL Borderline High: 90-129 mg/dL High: >/= 130 mg/dL ADULTS: Desirable: < 150 mg/dL Borderline High: 150-199 mg/dL High: >/= 240 mg/dL Very High: >/= 500 mg/dL [facility] [employer] Chemistry LDL/HDL 1 06/24- [address] [place], [place] [address] Chemistry TSH 1.920 mIU/L 0.270 - 4.200 06/24 N Interpretive Data: Recommend: TPO/Thyroper oxidase Antibody when TSH result is > 4.2 uIU/mL 5600A-U SAFSAM EPILAB Chemistry Ur Microalbumi n 11 mg/L 06/24 N Interpretive Data: To minimize intra-indivi dual variation, analysis of three random urine samples collected over the course of a week has also been recommended. 0055A-3 [facility] Dez Chemistry Ur Creat 156 mg/dL 06/24 0055A-[address] Chemistry Ur Microalb/Ur Creat Ratio 7 mg/gCr 06/24 N 0055A-3 [facility]- Dez Chemistry Chloride 108 mmol/L 98 - 107 06/24 H 5A-[address] [place] [address]- Dez Chemistry Calcium 9.3 mg/dL 8.4 - 10.2 06/24 N 0055A-[address] [place] [address]- Dez Chemistry BUN/Creat Ratio 16 mg/dL 12 - 20 06/24 N 0055A-[address] [place] [address]- Dez Chemistry CO2 25 mmol/L 22 - 29 06/24 N 0055A-[address] [place] [address]- Dez Chemistry Creatinine Level 0.80 mg/dL 0.57 - 1.11 06/24 N 0055A-[address] [place] [address]- Dez Chemistry Protein Total 7.2 g/dL 6.4 - 8.3 06/24 N 0055A-[address] [place] [address]- Dez Chemistry Sodium 144 mmol/L 136 - 145 06/24 N 0055A-[address] [place] [address]- Dez Chemistry Potassium Lvl 3.9 mmol/L 3.5 - 5.1 06/24 N 0055A-[address] [place] [address]- Dez Chemistry Glucose Lvl 180 mg/dL 74 - 99 06/24 H 0055A-3 [facility]- Dez Chemistry Albumin 3.90 g/dL 3.50 - 5.20 06/24 N 0055A-[address] [place] [address]- Dez Chemistry AGAP 11.00 0.00 - 15.00 06/24 N 0055A-[address] [place] [address]- Dez Chemistry Bilirubin Total 1.6 mg/dL 0.2 - 1.2 06/24 H 0055A-[address] [place] [address]- Dez Chemistry AST 20 U/L 5 - 34 06/[address] [place] [address] Chemistry ALT 25 U/L 5 - 55 06/[address] [place] [address] Chemistry Alk Phos 57 U/L 40 - 150 06/[address] [place] [address] BUN 13 mg/dL 7 - 20 06/[address] [place] [address] Chemistry eAvg Glucose 169 mg/dL 06/[address] [place] [address] Hemoglobin A1c 7.5 % 4.0 - 5.6 [...] diabetes. Because studies have repeatedly shown that uuk-rc-ccovc ol diabetes results in complication s from the disease, the goal for people with diabetes is a hemoglobin A1c less than 7%. The higher the hemoglobin A1c, the higher the risks of developing complication s related to diabetes. If confirmation is needed, consider recalling the patient and ordering Hemoglobin Electrophore sis. [address] [place] [address] eGFR CKD EPI 80 mL/min /1.73_ m2 [...] 15-29 Severe decrease <15 Kidney failure 0055A-[address] [place] [address] Hematology Hematocrit 40 % 34 - 46 03/17 N 0055A-[address] [place] [address] Hematology Hemoglobin 13.4 g/dL 11.0 - 15.0 03/17 N 0055A-[address] [place] [address] MCH 32 pg 28 - 33 03/17 N 0055A-[address] [place] [address] Hematology MCHC 33.3 g/dL 33.0 - 36.5 03/17 N 0055A-[address] [place] [address] Hematology MCV 96 fL 80 - 97 03/17 N 0055A-[address] [place] [address] Hematology MPV 10.7 fL 7.4 - 10.4 03/17 H 0055A-[address] [place] [address] Hematology Platelets 158.0 x10^3/ mcL 150.0 - 450.0103 03/17 N 0055A-[address] [place] [address] Hematology RBC 4.2 x10^6/ mcL 3.6 - 5.0106 03/17 N 0055A-[address] [place] [address] Hematology RDW 13.6 % 11.0 - 14.9 03/17 N 0055A-[address] [place] [address] WBC 5.4 x10^3/ mcL 4.0 - 11.0103 03/17 N 0055A-[address] [place] [address] Hematology Eos Absolute 0.1 x10^3/ mcL 0.0 - 0.7103 03/[address] [place] [address] Hematology Baso Absolute 0.0 x10^3/ mcL 0.0 - 0.1103 03/[address] [place] [address] Hematology Basophil % Auto 0.6 % 0.0 - 2.5 03/[address] [place] [address] Hematology Lymph Absolute 1.4 x10^3/ mcL 1.2 - 4.0103 03/[address] [place] [address] Hematology [place] Absolute 0.6 x10^3/ mcL 0.2 - 0.8103 03/[address] [place] [address] Hematology Eosinophil % Auto 3 % 0 - 5 03/[address] [place] [address] Hematology Lymphocyte % Auto 25.9 % 20.0 - 40.0 03/[address] [place] [address] Hematology Monocyte % Auto 10 % 1 - 12 03/[address] [place] [address] Hematology Neutro Absolute 3.2 x10^3/ mcL 2.0 - 7.0103 03/[address] [place] [address] Hematology Neutrophil % Auto 59.9 % 46.0 - 77.0 03/[address] [place] [address] Encounters Combined list of: 1) Encounters from Department of [facility] facilities going backup to the last 18 months, not all [place] inpatient encounters are included; 2) Encounters from the Department of Defense facilities going backup to 280 months. Location Location Details Encounter Type Encounter Number Reason For Visit Attending Provider ADM Date DC Date Status Disposition Source [address] [place] [address] Dez [place] [facility] [place] - [place] cs[place] OUTPATIENT [id number] possibl e medial meniscu s injury KAILEE ROQUE 06/10 Released w/o Limitations [address] [place] [address] Dez QUEZADA [facility] [place]V A - Orthope dics) [address] [place] [address] Dez [facility])(Sco tt Internal Medicine Tm) TELE CONSULT [id number] Medicat ion Refill DIDI CHEATHAM 07/[address] [place] [address] [facility](S cott Interna l Medicin e Tm) [address] [place] [address])([facility] dina Practice Non-GME FHI1) TELE CONSULT [id number] Medicat ion refSAW Victor 07/[address] [place] [address])(F amily Practic e Non-GME FHI1) [address] [place] [address])([facility] dina Practice Non-GME FHI1) OUTPATIENT [id number] annual pap ???poss . JASON Crisostomo se 08/04 Released w/o Limitations [address] [place] [address])(F amily Practic e Non-GME FHI1) [address] [place] [address])(Fam dina Practice Non-GME FHI2) OUTPATIENT [id number] f/u labs SUZANNE AGUDELO 09/23 Released w/o Limitations [address] [place] [address])(F amily Practic e Non-GME FHI2) [address] [place] [address])(Fam dina Practice Non-GME FHI2) TELE CONSULT [id number] US results and plan of care PORFIRIO OSUNA 10/[address] [place] [address])(F amily Practic e Non-GME FHI2) [address] [place] [address])([facility] dina Practice Non-GME FHI1) TELE CONSULT [id number] Pelvic MRI results . 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 CONSULT [id number] DIVINE MORALES 11/[address] [place] [address])(G ynecolo gy) [address] [place] [address])(Fam dina Practice Non-GME FHI2) TELE CONSULT [id number] 1052-qu estions on meds-dy SILVINA Sheffield 09/[address] [place] [address])(F amily Practic e Non-GME FHI2) [address] [place] [address])([facility] dina Practice Non-GME FHI2) OUTPATIENT [id number] f/u anemia, labs ordered SUGEY KNOWLES 10/08 Released w/o Limitations [address] [place] [address])(F amily Practic e Non-GME FHI2) [address] [place] [address])([facility]) TELE CONSULT [id number] meds req- SAW Johnson 01/[address] [place] [address])(F amily Practic e Non-GME FHI1) [address] [place] [address])([facility] Non-GME FHI2) OUTPATIENT [id number] full physica l SUGEY KNOWLES 02/08 Released w/o Limitations [address] [place] [address])(F amily Practic e Non-GME FHI2) [address] [place] [address])([facility] Non-GME FHI2) TELE CONSULT [id number] repeat fasting glucose per CARLOS Santos 02/[address] [place] [address] Dez [facility])(F amily Practic e Non-GME FHI2) [address] [place] [address])([facility] Non-GME FHI2) TELE CONSULT [id number] Per Dr Alvaro fofana based on glucose test from 19 February pt needs 2hr GTT/HA1 CARLOS HUMMEL 02/[address] [place] [address] Dez [facility])(F amily Practic e Non-GME FHI2) [address] [place] [address])(Fam dina Practice Non-GME FHI2) TELE CONSULT [id number] schedul e follow up for blood sugar based on lab from 26 February CARLOS BEVERLY 03/[address] [place] [address] Dez [facility])(F amily Practic e Non-GME FHI2) [address] [place] [address])([facility] Non-GME FHI2) OUTPATIENT [id number] lab follow per SHANNON Badillo 03/18 Released w/o Limitations [address] [place] [address] Dez [facility])(F amily Practic e Non-GME FHI2) [address] [place] [address] Dez [facility])([facility]) OUTPATIENT [id number] 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 PH:[id number] CARLOS RACHEL 07/09 Released w/o Limitations [address] [place] [address] Dez [facility])(F amily Practic e Non-GME FHI2) [address] [place] [address] Dez [facility])([facility] Non-GME FHI2) OUTPATIENT [id number] well woman/f /u diabete s CARLOS RACHEL 07/22 Released w/o Limitations [address] [place] [address] Dez [facility])(F amily Practic e Non-GME FHI2) [address] [place] [address] Dez [facility])([facility] Non-GME FHI1) TELE CONSULT [id number] refill med - dye SAW PRICE 10/[address] [place] [address] Dez [facility])(F amily Practic e Non-GME FHI1) [address] [place] [address] Dez [facility])([facility] dina Practice Non-GME FHI2) OUTPATIENT [id number] poss sinus infecti on/slig ht fever SUGEY KNOWLES 11/01 Released w/o Limitations [facility])(F amily Practic e Non-GME FHI2) [address] [place] [address])([facility] Non-GME FHI2) OUTPATIENT [id number] sinus infecti on LISA HOPKINS 11/03 Released w/o Limitations [address] [place] [address])(F amily Practic e Non-GME FHI2) [address] [place] [address])([facility] Non-GME FHI2) TELE CONSULT [id number] meds request - SAW Johnson 01/[address] [place] [address])(F amily Practic e Non-GME FHI2) [address] [place] [address])([facility] Non-GME FHI2) TELE CONSULT [id number] Lab results and treatme nt per CRO SAW Addison 02/[address] [place] [address])(F amily Practic e Non-GME FHI2) [address] [place] [address])([facility] Non-GME FHI2) OUTPATIENT [id number] 6 mo f/u; labs done CARLOS RACHEL 02/08 Released w/o Limitations [address] [place] [address])(F amily Practic e Non-GME FHI2) [address] [place] [address])([facility] Non-GME FHI1) TELE CONSULT [id number] returni ng a call- RUSLAN Ochoa 03/[address] [place] [address])(F amily Practic e Non-GME FHI1) [address] [place] [address])([facility] Non-GME FHI2) TELE CONSULT [id number] med refill - SAW Alejandra 04/[address] [place] [address])(F amily Practic e Non-GME FHI2) [address] [place] [address])([facility] dina Practice Non-GME FHI2) OUTPATIENT [id number] fu for medicat ions and test... [phone] WILMAN GUILLEN 09/04 Released w/o Limitations [address] [place] [address])(F amily Practic e Non-GME FHI2) [address] [place] [address] Dez PEÑALOZAB [place] [place]Opt ometry) OUTPATIENT [id number] DIABETE S MELLITU S VIKRAM SHARP W 09/05 Released w/o Limitations [address] [place] [address] Dez QUEZADA ([facility] [place]O ptometr y) [address] [place] [address] Dez PEÑALOZAB [facility] [place]Fam dina Practice Non-GME FHI1) TELE CONSULT [id number] Rx Refill- SAW Alejandra 09/[address] [place] [address] Dez PEÑALOZAB [facility] [place]F amily Practic e Non-GME FHI1) [address] [place] [address] Dez PE[place]OZAB [facility] [place]Fam dina Practice Non-GME FHI1) TELE CONSULT [id number] Med Refill- JADA Brooks 10/[address] [place] [address] Dez ANABELAAnanya [facility] [place] [place]F amily Practic e Non-GME FHI1) [address] [place] [address] Dez ANABELAAnanya [facility] [place] [place]Fam dina Med Tm B Non-AD BCC) TELE CONSULT [id number] med refill- SAW Alejandra 11/[address] [place] [address] Dez PEÑALOZAAnanya [facility] [place] [place]F amily Med Tm B Non-AD BCC) [address] [place] [address] Dez ANABELAAnanya [facility] [place] [place]Fam dina Med Tm B Non-AD BCC) TELE CONSULT [id number] Apt Request - PA JADA Brooks 01/[address] [place] [address] Dez PEÑALOZAAnanya ([facility] [place]F amily Med Tm B Non-AD BCC) [address] [place] [address] Dez ANABELAB ([facility] [place]Fam dina Med Tm B Non-AD BCC) OUTPATIENT [id number] Bilat hands/f ingers skin peeling /cracki ng.No relief with hm tx JOEY KNOWLES 01/15 Released w/o Limitations [address] [place] [address] Dez ANABELAB ([facility] [place]F amily Med Tm B Non-AD BCC) [address] [place] [address] Dez ANABELAB [facility] [place]Fam dina Med Tm B Non-AD BCC) TELE CONSULT [id number] Gary/ Allergi c Kaleyio KELLY Arevalo 01/[address] [place] [address] Dez ANABELAB [facility] [place]F amily Med Tm B Non-AD BCC) [address] [place] [address] Dez PEÑALOZAB ([facility] [place]Fam dina Med Tm B Non-AD BCC) OUTPATIENT [id number] f/u meds, allergi c reactio n to WILMAN Narayan 01/24 Released w/o Limitations [address] [place] [address] Dez PEÑALOZAB ([facility] [place]F amily Med Tm B Non-AD BCC) [address] [place] [address] Dez PEÑALOZAB ([facility] [place]Fam dina Med Tm B Non-AD BCC) TELE CONSULT [id number] Lab Result KELLY MUNROE P 01/[address] [place] [address] Dez PEÑALOZAB ([facility] [place]F amily Med Tm B Non-AD BCC) [address] [place] [address] Dez PEÑALOZAB [facility] [place]Fam dina Med Tm B Non-AD BCC) TELE CONSULT [id number] Lab Results KELLY MUNROE P 01/[address] [place] [address] Dez PEÑALOZAB ([facility] [place]F amily Med Tm B Non-AD BCC) [address] [place] [address] Dez PE[place]ALOZAB [facility] [place]Fam dina Med Tm B Non-AD BCC) TELE CONSULT [id number] refill med/toby KELLY Livingston P 03/[address] [place] [address] Dez PEÑALOZAB [place] [place]F amily Med Tm B Non-AD BCC) [address] [place] [address] Dez PE[place]ALOZAB [facility] [place]Fam dina Med Tm B Non-AD BCC) TELE CONSULT [id number] SAW Beltran 03/[address] [place] [address] Dez PEÑALOZAB [place] [place]F amily Med Tm B Non-AD BCC) [address] [place] [address] Dez PEÑALOZA ([facility] [place]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) OUTPATIENT [id number] breast referra AMISH Cherry 04/30 Released w/o Limitations [address] [place] [address] Dez PEÑALOZAB ([facility] [place]O b/Tube Making Machine Operator) [address] [place] [address] Dez PE[place]ALOZAB [facility] [place]Fam dina Med Tm B Non-AD BCC) TELE CONSULT [id number] refill medbridgett/SAW Grace 05/[address] [place] [address] Dez PEÑALOZAB ([facility] [place]F amily Med Tm B Non-AD BCC) [address] [place] [address] Dez PEÑALOZAB [facility] [place]am [place]ina Med Tm B Non-AD BCC) TELE CONSULT [id number] Angy Laws ry SAW PRICE Arjun 05/[address] [place] [address] Dez [facility])(F amily Med Tm B Non-AD BCC) [address] [place] [address] Dez [facility])(Fam dina Med Tm B Non-AD BCC) TELE CONSULT [id number] Audio Notes, Lab Results JOEY KNOWLES Nigel 05/[address] [place] [address] Dez [facility])(F amily Med Tm B Non-AD BCC) [address] [place] [address] Dez [facility])(Fam dina Med Tm B Non-AD BCC) TELE CONSULT [id number] Med renewal and appt request QUIANAJADA VILLAR Feliz 10/[address] [place] [address] De[place] [facility] [place]F amily Med Tm B Non-AD BCC) [address] [place] [address])(Fam dina Med Tm B Non-AD BCC) TELE CONSULT [id number] Gary/ STAT referra l RAMÍREZ MONROY 10/[address] [place] [address] Dez [facility])(F amily Med Tm B Non-AD BCC) [address] [place] [address])(Fam dina Med Tm B Non-AD BCC) OUTPATIENT [id number] F/u for med renewal WILMAN GUILLEN 10/15 Released w/o Limitations [address] [place] [address] Dez [facility])(F amily Med Tm B Non-AD BCC) [address] [place] [address] Dez [facility])(Sco tt Internal Medicine Tm) OUTPATIENT [id number] REFERRA L/h/o breast CA/chem o; hypothy ISABELLA Naranjo CPT 10/25 Released w/o Limitations [address] [place] [address] Dez [facility])(S cott Interna l Medicin e Tm) [address] [place] [address])(Fam dina Med Tm B Non-AD BCC) TELE CONSULT [id number] Lab Result Review results with patient SAW PRICE 10/[address] [place] [address] Dez [facility])(F amily Med Tm B Non-AD BCC) [address] [place] [address] Dez [facility])(Sco tt [facility] Team 3) TELE CONSULT [id number] Audio notes phoned in to patient CAROL ELICEO FERNANDO 10/[address] [place] [address] [employer] [place] [place] cott [facility] Team 3) [facility] Dez [place] [place]Opt ometry) OUTPATIENT [id number] DM2 ARONVIKRAM W 11/29 Released w/o Limitations [facility] Dez [place] ([facility] [place]O ptometr y) [facility] Dez [facility] ([facility] [place] [place] [facility] Internal Medicine ) TELE CONSULT [id number] rx refill/ referra ls JADYN, [facility] CPT 04/26 [facility] Dez [place] [facility] [place] [place]S cott Interna l Medicin e Tm) [facility] Dez [place] ([facility] [place] [place] [facility] Internal Medicine ) OUTPATIENT [id number] f/u HTN/DM/ Labs/Me ds JADYN, [facility] CPT 05/07 Released w/o Limitations [facility] Dez [place] ([facility] [place]S cott Interna l Medicin e Tm) [facility] Dez [place]ADA [facility] [place] Internal Medicine ) TELE CONSULT [id number] Referra l--Onco logy JADYN, [facility] CPT 07/19 [facility] Dez [place] ([facility] [place]S cott Interna l Medicin e Tm) [facility] Dez [place] [facility] [place] Internal Medicine ) TELE CONSULT [id number] ron chong around eyes JADYN, [facility] CPT 07/23 [facility] Dez [place]ADA ([facility] [place]S cott Interna l Medicin e Tm) [facility] Dez QUE[place]ADA ([facility] [place] [place] [facility] Internal Medicine ) OUTPATIENT [id number] Ron chong R Eye and Sinus RAYA JADYN, [facility] CPT 07/24 Released w/o Limitations [facility] Dez [place] ([facility] [place]S cott Interna l Medicin e Tm) [facility] Dez QUE[place]ADA ([facility] [place] [place] [facility] Internal Medicine ) TELE CONSULT [id number] med refill MINESH AGUDELO 09/10 Referred for Appointment [facility] [employer] Dez [facility]ADA ([facility] [place]S cott Interna l Medicin e Tm) [facility] Dez [place]ADA [facility] [place] [place] [facility] Internal Medicine ) TELE CONSULT [id number] med refill DIDI CHEATHAM 10/15 Referred for Appointment [facility] Dez ANABELAAnanya [facility] [place]S cott Interna l Medicin e Tm) [facility] Dez ANABELAAnanya [facility] [place] [place] [place] [facility] Internal Medicine ) TELE CONSULT [id number] rx refill MINESH AGUDELO Breanna 10/29 Referred for Appointment [address] [place] [address] Group Dez ANABELAAnanya [facility] [place] [place]S cott Interna l Medicin e Tm) [facility] Dez Ananya [facility] [place] Internal Medicine ) OUTPATIENT [id number] f/u on labs and meds - [id number] or [id number] ISABELLA SALAMANCA CPT 11/13 Released w/o Limitations [address] [place] [address] Group Dez ANABELAAnanya [facility] [place]S cott Interna l Medicin e Tm) [address] [place] [address] Dez ANABELAAnanya [facility] [place]Opt ometry) OUTPATIENT [id number] STEPHEN Alvarez 11/19 Released w/o Limitations [address] [place] [address] Dez ANABELAAnanya [facility] [place]O ptometr y) [facility] [place] [facility] Internal Medicine ) TELE CONSULT [id number] request ing referra l to dermoto logist for lack of hair growing back [phone] [facility] DIDI CHEATHAM 11/[address] [place] [address] Group Dez ANABELAAnanya [facility] [place]S cott Interna l Medicin e Tm) [facility] Medical [facility] Dez ANABELAAnanya [facility] [place] [place]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) OUTPATIENT [id number] annual BEAREFFIE A 12/03 Released w/o Limitations [address] [place] [address] Group Dez QUEZADA [facility]G ynecolo gy) [facility] Dez QUEZADA [facility] [place]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 [id number] Discuss pap results BEAREFFIE A 12/16 [facility] Dez ANABELAAnanya [facility] [place]G ynecolo gy) [facility] Medical [facility] Dez QUEZADA [facility] [place]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) OUTPATIENT [id number] repeat pap BEAREFFIE A 12/19 Released w/o Limitations [address] [place] [address] Dez QUEZADA [facility] [place]G ynecolo gy) [facility] Dez QUEZADA [facility] [place]Pranav matology) OUTPATIENT [id number] DEZ Lei 01/10 Released w/o Limitations [facility] Dez PEÑALOZAB ([facility] [place]D ermatol ogy) [facility] Dez [facility])([facility] [place] [facility] Internal Medicine ) TELE CONSULT [id number] rx refill OCTAVIO MINESH M 02/[address] [place] [address] Dez [facility] ([facility] [place]S cott Interna l Medicin e Tm) [address] [place] [address] Dez [facility])([facility] [place] [facility] Internal Medicine ) OUTPATIENT [id number] follow up with meds ROSELYN MERCADO 03/03 Released w/o Limitations [address] [place] [address] Group Dez B ([facility] [place]S cott Interna l Medicin e Tm[facility] Dez B [facility] [place] [facility] Internal Medicine ) TELE CONSULT [id number] lab results ROSELYN MERCADO 03/[address] [place] [address] Group Dez [facility])(S cott Interna l Medicin e Tm) [address] [place] [address] Dez [facility])([facility] [place] [facility] Internal Medicine ) OUTPATIENT [id number] f/u blood work... [id number] ROSELYN MERCADO 05/29 Released w/o Limitations [address] [place] [address] Group [facility]z [facility])(S cott Interna l Medicin e Tm) [facility] Dez [facility])([facility] [place] [facility] Internal Medicine ) TELE CONSULT [id number] ROSELYN Munoz 06/[address] [place] [address] Group Dez ANABELA ([facility] [place]S cott Interna l Medicin e Tm) [address] [place] [address] Dez [facility])([facility] [place] [facility] Internal Medicine ) TELE CONSULT [id number] Meds refills /Jos kson/fx DIDI Ramirez 07/[address] [place] [address] Group Edz ANABELAB [facility]S cott Interna l Medicin e Tm) [facility] Dez B [facility] [place] Internal Medicine ) TELE CONSULT [id number] F/u appt. - Luis rodriguez - [phone] /Dorita [facility] DIDI CHEATHAM 08/[address] [place] [address] Dez B [facility]S cott Interna l Medicin e Tm) [facility] Dez B [facility] Internal Medicine ) TELE CONSULT [id number] needs Thyroid meds to get through to appt on 10 Sep 2011 [id number] MINESH AGUDELO 09/[address] [place] [address] Group [facility](S cott Interna l Medicin e Tm) [address] [place] [address])([facility] Internal Medicine ) OUTPATIENT [id number] follow- up for meds CARLOS PICKENS 09/10 Released w/o Limitations [address] [place] [address])(S cott Interna l Medicin e Tm) [address] [place] [address])([facility] [place] [facility] Internal Medicine ) TELE CONSULT [id number] RYANN RUDOLPH 09/11 Other Not Elsewhere Classified [address] [place] [address])(S cott Interna l Medicin e Tm) [address] [place] [address] Dez [facility])([facility] [place] [facility] Internal Medicine ) TELE CONSULT [id number] Notes Entered by: SUGEY ALFORD 17 Nov 2011 1058 ------- ------- ------- ------- -- Tcon for med refill Dr Luis rodriguez ph [phone] cad dmDIDI Felix 11/[address] [place] [address] Dez [facility])(S cott Interna l Medicin e Tm) [address] [place] [address])([facility] Internal Medicine ) OUTPATIENT [id number] f/u diabete [id number] CARLOS PICKENS 12/14 Released w/o Limitations [address] [place] [address])(S cott Interna l Medicin e Tm) [address] [place] [address] Dez [facility])([facility] [place] [facility] Internal Medicine ) OUTPATIENT [id number] pink eye [id number] ROSELYN MERCADO 02/25 Released w/o Limitations [address] [place] [address])(S cott Interna l Medicin e Tm) [address] [place] [address])(Opt ometry) OUTPATIENT [id number] JADA HERNANDEZ 02/25 Released w/o Limitations [address] [place] [address] Dez [facility])(O ptometr y) [facility])([facility] [place] [facility] Internal Medicine ) TELE CONSULT [id number] Notes Entered by: RADHA MERCADO W 26 Feb 2012 1517 ------- ------- ------- ------- -- Followu p from appoint ment ROSELYN MERCADO 02/[address] [place] [address])(S cott Interna l Medicin e Tm) [address] [place] [address])(Opt ometry) OUTPATIENT [id number] bilater al conjunc JADA Felipe 03/04 Released w/o Limitations [address] [place] [address])(O ptometr y) [address] [place] [address])([facility] [place] [facility] Internal Medicine ) TELE CONSULT [id number] Notes Entered by: Lance DIETRICH 26 Apr 2012 0932 ------- ------- ------- ------- -- Med refill/ Luis rodriguez/weston /nando [phone] DIDI CHEATHAM 04/[address] [place] [address])(S cott Interna l Medicin e Tm) [address] [place] [address])([facility] [place] [facility] Internal Medicine ) TELE CONSULT [id number] Notes Entered by: KAYKAY MEYER 07 Jun 2012 0953 ------- ------- ------- ------- -- Med Refill- Luis rodriguez/[id number] [phone]/c DIDI Erickson 06/[address] [place] [address])(S cott Interna l Medicin e Tm) [address] [place] [address])([facility] [place] [facility] Internal Medicine ) OUTPATIENT [id number] follow- up for HCM, med renewal CARLOS PICKENS 06/28 Released w/o Limitations [address] [place] [address])(S cott Interna l Medicin e Tm) [address] [place] [address])([facility] [place] [facility] Internal Medicine ) TELE CONSULT [id number] Notes Entered by: MARIE MELTON 28 Jun 2012 1614 ------- ------- ------- ------- -- lab YVONNE JOHNSTON 06/28 Referred for Appointment [address] [place] [address])(S cott Interna l Medicin e Tm) [address] [place] [address])([facility] [place] [facility] Internal Medicine ) TELE CONSULT [id number] Notes Entered by: FRANNIE CARSON 17 Aug 2012 1607 ------- ------- ------- ------- -- Network Results -ONCOLO GY 07/08/12 CARLOS PICKENS 08/[address] [place] [address])(S cott Interna l Medicin e Tm) [address] [place] [address])([facility] [place] [facility] Internal Medicine ) TELE CONSULT [id number] Notes Entered by: JOSHUA CASTRO 06 Dec 2012 1113 ------- ------- ------- ------- -- Med [facility] /Jos murrayon/61 [phone] DIDI CHEATHAM 12/[address] [place] [address])(S cott Interna l Medicin e Tm) [address] [place] [address])([facility] Internal Medicine ) OUTPATIENT [id number] follow- up for HCM, labs CARLOS PICKENS 12/20 Released w/o Limitations [address] [place] [address])(S cott Interna l Medicin e Tm) [address] [place] [address])([facility] [place] [facility] Internal Medicine ) OUTPATIENT [id number] follow up medicat ions [id number] GERMAINE AGUDELO 05/26 Released w/o Limitations [address] [place] [address])(S cott Interna l Medicin e Tm) [address] [place] [address])([facility] Internal Medicine ) TELE CONSULT [id number] Notes Entered by: Feliz AGUDELO 27 May 2013 0742 ------- ------- ------- ------- -- Laborat ory results KASHMERARY DUONGKELLY SADLER Nigel 05/27 Referred for Appointment [address] [place] [address])(S cott Interna l Medicin e Tm) [address] [place] [address])([facility] Internal Medicine ) TELE CONSULT [id number] Notes Entered by: ISAÍAS NEIL 13 Jun 2013 1137 ------- ------- ------- ------- -- Med refill - Octavio - [id number] MINESH AGUDELO 06/[address] [place] [address])(S cott Interna l Medicin e Tm) [address] [place] [address])([facility] Internal Medicine ) TELE CONSULT [id number] Notes Entered by: ELICEO FONTAINE 11 Aug 2013 0739 ------- ------- ------- ------- -- Sore throat/ octavio/Adeline [phone] * SHAHZAD JAMES 08/[address] [place] [address])(S cott Interna l Medicin e Tm) [address] [place] [address])([facility] Internal Medicine ) OUTPATIENT [id number] Sore throat, low grade temp. GERMAINE AGUDELO 08/11 Released w/o Limitations [address] [place] [address])(S cott Interna l Medicin e Tm) [address] [place] [address])([facility] Internal Medicine ) TELE CONSULT [id number] Notes Entered by: KAYKAY MEYER 19 Aug 2013 0948 ------- ------- ------- ------- -- Lump in left breast/ past cancer pt-Henr y/ * SHAHZAD JAMES 08/[address] [place] [address])(S cott Interna l Medicin e Tm) [address] [place] [address])([facility] Internal Medicine ) OUTPATIENT [id number] Left breast painful lumps GERMAINE AGUDELO 08/22 Released w/o Limitations [address] [place] [address] Group [facility](S cott Interna l Medicin e Tm) [address] [place] [address])([facility] Internal Medicine ) TELE CONSULT [id number] Notes Entered by: Feliz AGUDELO 24 Aug 2013 1222 ------- ------- ------- ------- -- Laborat SHAHZAD Carlson 08/[address] [place] [address] Dez [facility])(S cott Interna l Medicin e Tm) [address] [place] [address])([facility] [place] [facility] Internal Medicine ) TELE CONSULT [id number] Notes Entered by: DORYS SHRESTHA 24 Aug 2013 1556 ------- ------- ------- ------- -- Med camiloill Octavio SHAHZAD JAMES 08/[address] [place] [address] Group [facility](S cott Interna l Medicin e Tm) [address] [place] [address])([facility] Internal Medicine ) OUTPATIENT [id number] f/u for 2 week blood sugar monitor [facility] [phone] GERMAINE AGUDELO 09/08 Released w/o Limitations [address] [place] [address])(S cott Interna l Medicin e Tm) [address] [place] [address])(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) OUTPATIENT [id number] ANNUAL E - [id number] LUIS PROCTOR 09/27 Released w/o Limitations [address] [place] [address] Dez [facility] ([facility]Donald oconnell gy) [address] [place] [address])([facility] [place] [facility] Internal Medicine ) TELE CONSULT [id number] Notes Entered by: JOSHUA CASTRO 14 Dec 2013 1514 ------- ------- ------- ------- -- Med renewal /Octavio/ CASEY ANDRES 12/[address] [place] [address])(S cott Interna l Medicin e Tm) [address] [place] [address])([facility] Medicine ) TELE CONSULT [id number] Notes Entered by: Feliz AGUDELO 14 Dec 2013 1623 ------- ------- ------- ------- -- Laborat ory results KELLY VELAZQUEZ 12/14 Referred for Appointment [address] [place] [address])(S cott Interna l Medicin e Tm) [address] [place] [address])([facility] Internal Medicine ) TELE CONSULT [id number] Notes Entered by: SHAHZAD JAMES 20 Dec 2013 1000 ------- ------- ------- ------- -- Med refSHAHZAD Smith 12/[address] [place] [address])(S cott Interna l Medicin e Tm) [address] [place] [address])([facility] Medicine ) OUTPATIENT [id number] fu diabete s, cancer, [id number] GERMAINE AGUDELO 12/23 Released w/o Limitations [address] [place] [address])(S cott Interna l Medicin e Tm) [address] [place] [address])([facility] Disease Managemen t) TELE CONSULT [id number] Notes Entered by: VICTORINO MADRIGAL 30 Dec 2013 1143 ------- ------- ------- ------- -- Pt due for annual Dilated Retinal Eye exam VICTORINO MADRIGAL 12/[address] [place] [address])(S cott Disease Managem ent) [address] [place] [address])(Opt ometry) OUTPATIENT [id number] ROSHAN JEFFREY 02/01 Released w/o Limitations [address] [place] [address])(O ptometr y) [address] [place] [address])([facility] Internal Medicine ) TELE CONSULT [id number] Notes Entered by: CHAYA PADRON 23 May 2014 1559 ------- ------- ------- ------- -- Bridge Rx/Henr y/452.2 805 CASEY ANDRES 05/[address] [place] [address])(S cott Interna l Medicin e Tm) [address] [place] [address])([facility] Internal Medicine ) OUTPATIENT [id number] f/u medicai ton/452 .2805 GERMAINE AGUDELO 06/01 Released w/o Limitations [address] [place] [address])(S cott Interna l Medicin e Tm) [address] [place] [address])([facility] Internal Medicine ) OUTPATIENT [id number] need cardiac clearan ce b/f surg GERMAINE AGUDELO 08/11 Released w/o Limitations [address] [place] [address])(S cott Interna l Medicin e Tm) [address] [place] [address])([facility] Internal Medicine ) TELE CONSULT [id number] Notes Entered by: CRISTELA POST 24 Aug 2014 1209 ------- ------- ------- ------- -- Network Results -SURGER Y 4 GERMAINE AGUDELO 08/[address] [place] [address])(S cott Interna l Medicin e Tm) [address] [place] [address])([facility] Medicine ) TELE CONSULT [id number] Notes Entered by: Feliz DIETRICH 18 Sep 2014 1225 ------- ------- ------- ------- -- Med refill Octavio CASEY ANDRES 09/[address] [place] [address])(S cott Interna l Medicin e Tm) [address] [place] [address])([facility] Internal Medicine Tm) TELE CONSULT [id number] Notes Entered by: ELICEO FONTAINE 13 Nov 2014 1324 ------- ------- ------- ------- -- Med refill/ octavio/Colton [phone] CASEY ANDRES 11/[address] [place] [address])(S cott Interna l Medicin e Tm) [address] [place] [address])([facility]) TELE CONSULT [id number] Notes Entered by: VICTORINO MADRIGAL 22 Nov 2014 1039 ------- ------- ------- ------- -- Pt is showing due for annual fasting labs and f/u. VICTORINO MADRIGAL 11/[address] [place] [address])(S cott Disease Managem ent) [address] [place] [address])([facility] Internal Medicine Tm) TELE CONSULT [id number] Notes Entered by: JOSHUA CASTRO 11 Dec 2014 1020 ------- ------- ------- ------- -- Med renewal /octavio/ CASEY ANDRES 12/[address] [place] [address])(S cott Interna l Medicin e Tm) [address] [place] [address])([facility] Internal Medicine Tm) OUTPATIENT [id number] f/u for labs and med renewal [id number] GERMAINE AGUDELO 12/22 Released w/o Limitations [address] [place] [address])(S cott Interna l Medicin e Tm) [address] [place] [address])([facility] Tm) TELE CONSULT [id number] Notes Entered by: Lance DIETRICH 28 May 2015 0919 ------- ------- ------- ------- -- Med refilll /Octavio/ [phone] CASEY ANDRES 05/[address] [place] [address])(S cott Interna l Medicin e Tm) [address] [place] [address])([facility] Internal Medicine ) OUTPATIENT [id number] med renewal [id number] GERMAINE AGUDELO 07/03 Released w/o Limitations [address] [place] [address])(S cott Interna l Medicin e Tm) [address] [place] [address])([facility] Internal Medicine ) TELE CONSULT [id number] Notes Entered by: Rico LICEA 26 Nov 2015 0935 ------- ------- ------- ------- -- Med Renewal / Octavio / CASEY ANDRES 11/[address] [place] [address])([facility] cott Interna l Medicin e Tm) [address] [place] [address])([facility] Internal Medicine ) TELE CONSULT [id number] Notes Entered by: DMITRY VANCE ELS 27 Nov 2015 1209 ------- ------- ------- ------- -- Lab Order Request //Octavio //452.2 805 CASEY ANDRES 11/[address] [place] [address])(S cott Interna l Medicin e Tm) [address] [place] [address])([facility] Internal Medicine ) OUTPATIENT [id number] f/u on meds - [id number] GERMAINE AGUDELO 12/03 Released w/o Limitations [address] [place] [address])([facility] cott Interna l Medicin e Tm) [address] [place] [address])([facility] Internal Medicine ) TELE CONSULT [id number] Notes Entered by: TOMMY HEWITT 21 Dec 2015 1219 ------- ------- ------- ------- -- NORM Gaxiola 12/20 Immediate Referral [address] [place] [address])(S cott Interna l Medicin e Tm) [address] [place] [address])([facility] Internal Medicine ) TELE CONSULT [id number] Notes Entered by: Rico LICEA 07 Jul 2016 0918 ------- ------- ------- ------- -- Med Renewal / Octavio/ - CASEY Mcclure 07/[address] [place] [address] Group [facility](S cott Interna l Medicin e Tm) [address] [place] [address])([facility] Internal Medicine ) OUTPATIENT [id number] [facility] / GERMAINE AGUDELO 07/23 Released w/o Limitations [address] [place] [address] Group [facility](S cott Interna l Medicin e Tm) [address] [place] [address])([facility] Internal Medicine ) TELE CONSULT [id number] Notes Entered by: Feliz AGUDELO 25 Jul 2016 0706 ------- ------- ------- ------- -- Radiolo gy results CASEY ANDRES 07/[address] [place] [address] Group [facility](S cott Interna l Medicin e Tm) [address] [place] [address])([facility] Internal Medicine ) TELE CONSULT [id number] Notes Entered by: Rico LICEA 30 Jul 2016 1000 ------- ------- ------- ------- -- Medicat ion Inquiry / Octavio / - SAI Dickens 07/30 Referred for Appointment [facility] Group [facility](S cott Interna l Medicin e Tm) [facility] Medical [facility])([facility] Internal Medicine ) OUTPATIENT [id number] Knee and Hip pain (HOP not sure which side) 452.280 5 WALTER VERA 09/16 Released w/o Limitations [address] [place] [address] Group [facility] Intern[facility] l Medicin e Tm) [address] [place] [address])([facility] Internal Medicine ) TELE CONSULT [id number] Notes Entered by: MOOKIE SCHAFFER 29 Sep 2016 1019 ------- ------- ------- ------- -- Ramsey /Octavio/ CASEY ANDRES 09/[address] [place] [address] Dez Ananya [facility] Intern[facility] l Medicin e Tm) [address] [place] [address] Dez [facility])([facility] Disease Managemen t) TELE CONSULT [id number] Notes Entered by: VICTORINO MADRIGAL 09 Oct 2016 1552 ------- ------- ------- ------- -- Pt due for fasting labs VICTORINO MADRIGAL 10/[address] [place] [address] Dez QUEZADA [facility]S cott Disease Managem ent) [address] [place] [address])([facility] Internal Medicine ) OUTPATIENT [id number] right hip and knee GERMAINE AGUDELO 10/13 Released w/o Limitations [address] [place] [address])(S cott Interna l Medicin e Tm) [address] [place] [address])([facility] Internal Medicine ) TELE CONSULT [id number] Notes Entered by: MOOKIE SCHAFFER 20 Oct 2016 0930 ------- ------- ------- ------- -- Med Renewal /Octavio/ CASEY ANDRES 10/[address] [place] [address])([facility] cott Interna l Medicin e Tm) [address] [place] [address])([place] - Orthoped[facility] cs) OUTPATIENT [id number] 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 OLIVE HAMMOND 11/03 Released w/o Limitations [address] [place] [address] Dez [facility])(V A - Orthope dics) [address] [place] [address])([facility] Internal Medicine Tm) TELE CONSULT [id number] Notes Entered by: Donald MARY 11 Nov 2016 0737 ------- ------- ------- ------- -- Script for physica l therapy CASEY ANDRES 11/[address] [place] [address])([facility] cott Interna l Medicin e Tm) [address] [place] [address])([facility]) TELE CONSULT [id number] Notes Entered by: Feliz AGUDELO 13 Nov 2016 1632 ------- ------- ------- ------- -- Radiolo gy results CASEY ANDRES 11/[address] [place] [address])(S cott Interna l Medicin e Tm) [address] [place] [address])([place] - Orthoped[facility] cs) OUTPATIENT [id number] right leg OLIVE HAMMOND 12/01 Released w/o Limitations [address] [place] [address])(V A - Orthope dics) [address] [place] [address])(Phy sical Therapy) TELE CONSULT [id number] Notes Entered by: SURINDER CORTES 11 Dec 2016 0856 ------- ------- ------- ------- -- Network Results - PHYSICA L THERAPY 11/18/16 - 12/05/16 OLIVE SANDOVAL 12/[address] [place] [address])(P hysical Therapy ) [address] [place] [address])([facility] Internal Medicine Tm) TELE CONSULT [id number] Notes Entered by: Rico LICEA 22 Dec 2016 1240 ------- ------- ------- ------- -- Med Marino / Octavio/ - CASEY Mcclure 12/[address] [place] [address])([facility] cott Interna l Medicin e Tm) [address] [place] [address])([facility] Internal Medicine ) TELE CONSULT [id number] Notes Entered by: BLAINE LIANG 01 Jan 2017 1328 ------- ------- ------- ------- -- Network results Occupat ional/P hysical Therapy 7 DH GERMAINE AGUDELO 01/[address] [place] [address])([facility] cott Interna l Medicin e Tm) [address] [place] [address])([facility] Internal Medicine ) TELE CONSULT [id number] Notes Entered by: ABEL ALFORD 19 Jan 2017 1307 ------- ------- ------- ------- -- Rx renewal - Octavio - - tsg CASEY ANDRES 01/[address] [place] [address])([facility] cott Interna l Medicin e Tm) [address] [place] [address])([facility] Internal Medicine ) OUTPATIENT [id number] Pain in R leg/989 [id number] DIVINE ORR 03/02 Released w/o Limitations [address] [place] [address])([facility] cott Interna l Medicin e Tm) [address] [place] [address])([facility] Internal Medicine ) TELE CONSULT [id number] Notes Entered by: ADRIEL COSBY 16 Mar 2017 1017 ------- ------- ------- ------- -- Request for Lab Order - Appt 06 April / Octavio / - sgj CASEY ANDRES 03/[address] [place] [address])([facility] cott Interna l Medicin e Tm) [address] [place] [address])([facility] Internal Medicine ) OUTPATIENT [id number] F/U for diabete s / medicat ions / lab results [id number] GERMAINE AGUDELO 03/22 Released w/o Limitations [address] [place] [address])([facility] cott Interna l Medicin e Tm) [address] [place] [address])([facility] Internal Medicine ) TELE CONSULT [id number] Notes Entered by: SUGEY ALFORD 26 Mar 2017 1555 ------- ------- ------- ------- -- Network results Pain Managem ent 017 DMJ GERMAINE AGUDELO 03/[address] [place] [address])(S cott Interna l Medicin e Tm) [address] [place] [address])([facility] Internal Medicine ) TELE CONSULT [id number] Notes Entered by: DEVI MASON 14 Apr 2017 0800 ------- ------- ------- ------- -- Med Change/ Octavio/4 52.2805 /CASEY Key 04/[address] [place] [address])(S cott Interna l Medicin e Tm) [address] [place] [address])([facility] Internal Medicine ) TELE CONSULT [id number] Notes Entered by: TOMMY HEWITT 19 May 2017 1259 ------- ------- ------- ------- -- Outside Referra l request for pre-op CASEY ANDRES 05/[address] [place] [address])(S cott Interna l Medicin e Tm) [address] [place] [address])([facility] Internal Medicine ) TELE CONSULT [id number] Notes Entered by: CANDICE GARZON RET 29 Jun 2017 1453 ------- ------- ------- ------- -- RX Renewal /Octavio/ CASEY Bobby 06/[address] [place] [address])(S cott Interna l Medicin e Tm) [address] [place] [address])([facility] Internal Medicine ) TELE CONSULT [id number] Notes Entered by: Robb CHOWDARY 09 Jul 2017 1511 ------- ------- ------- ------- -- Referra simon issue/6 [id number]/CAN Solorzano 07/09 Referred for Appointment [facility] Group [facility](S cott Interna l Medicin e Tm) [facility] Internal Medicine ) OUTPATIENT [id number] Derm issue on face/ne ck/abdo men / sleep issues [id number] GERMAINE AGUDELO 07/15 Released w/o Limitations [address] [place] [address] Group [facility](S cott Interna l Medicin e Tm) [address] [place] [address])([facility] Internal Medicine ) TELE CONSULT [id number] Notes Entered by: Sina PETERSEN 21 Jul 2017 1432 ------- ------- ------- ------- -- Network Results Orthope dic Surgery 05/07/17 and 7 TSB GERMAINE AGUDELO 07/[address] [place] [address] Group [facility](S cott Interna l Medicin e Tm) [address] [place] [address])([facility] Internal Medicine ) TELE CONSULT [id number] Notes Entered by: MOOKIE SCHAFFER 04 Aug 2017 1220 ------- ------- ------- ------- -- Elvin alfaro /Octavio/ 452.280 5 KELLY VELAZQUEZ 08/04 Referred for Appointment [address] [place] [address] Group [facility](S cott Interna l Medicin e Tm) [address] [place] [address])([facility] Internal Medicine ) TELE CONSULT [id number] Notes Entered by: Donald MARY 08 Sep 2017 0945 ------- ------- ------- ------- -- ER f/u Rec. Request ed ([facility]) CASEY ANDRES 09/08 [facility] Dez [facility] [place] [place] cott Intern[place] l Medicin e Tm) [facility] Dez [facility] [place] [place] Medicine ) OUTPATIENT [id number] Annual Appoint ment follow up GERMAINE AGUDELO 09/16 Released w/o Limitations [address] [place] [address] Group Dez [facility] ([facility] [facility] cott Interna l Medicin e Tm) [address] [place] [address] Group Dez [facility])([facility] Internal Medicine ) TELE CONSULT [id number] Notes Entered by: ADRIEL COSBY 19 Oct 2017 0909 ------- ------- ------- ------- -- Med Renewal / Octavio / - sgj CASEY ANDRES 10/[address] [place] [address] Group Dez [facility] ([facility] [place] cott Interna l Medicin e Tm) [address] [place] [address] Group Dez [facility])([facility] OUTPATIENT [id number] 3 mo DM f/u MANOHAR AGUDELO 12/18 Released w/o Limitations [address] [place] [address] Group Dez [facility] [place] [place]) [address] [place] [address] Group Dez [facility])([facility] Internal Medicine ) OUTPATIENT [id number] DM follow up - 3mo WALTER VERA 03/18 Released w/o Limitations [facility] Group Dez PEÑALOZA [place] [place] cott Interna l Medicin e Tm) [address] [place] [address] Group Dez [facility])([facility]) OUTPATIENT [id number] Notes Entered by: Pallavi MARISCAL N 22 Mar 2018 1002 ------- ------- ------- ------- -- DM f/u and medicat ion educati on CLARK SCHWARZ 03/22 Released w/o Limitations [facility] Group Dez ANABELAB ([facility] [place]) [facility] Dez ANABELA ([facility] Medicine ) TELE CONSULT [id number] Notes Entered by: Donald MARY 11 Jun 2018 1025 ------- ------- ------- ------- -- Outside pharmac y out of stock of medicat ion./ yadyp CASEY ANDRES 06/11 Medication Refill Forwarded [address] [place] [address])(S cott Interna l Medicin e Tm) [address] [place] [address])([facility]) OUTPATIENT [id number] 3 month DM F/U CLARK SCHWARZ 06/18 Released w/o Limitations [address] [place] [address])(I Pharm D Clinic) [address] [place] [address])([facility] Internal Medicine Tm) TELE CONSULT [id number] Notes Entered by: Pallavi MARISCAL 21 Jun 2018 1508 ------- ------- ------- ------- -- Medicat ion adjustm ent and bone density scan CLARK SCHWARZ 06/[address] [place] [address])(S cott Interna l Medicin e Tm) [address] [place] [address])(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) OUTPATIENT [id number] vag bump NI HOLLINS 06/22 Released w/o Limitations [address] [place] [address])(G ynecolo gy) [address] [place] [address])(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 CONSULT [id number] Notes Entered by: Breanna HOLLINS 24 Jun 2018 1539 ------- ------- ------- ------- -- HSV Virus culture OZIEL BELL 06/24 Referred for Appointment [address] [place] [address])(G ynecolo gy) [address] [place] [address])([facility] [place]) OUTPATIENT [id number] Discuss DEXA scan/de crease in Zoloft (16oct2 018) SHARIF OLEA 07/02 Released w/o Limitations [address] [place] [address])(S cott Interna l Medicin e Tm) [employer] Dez [place] [facility]) OUTPATIENT [id number] 3 month DM f/u CLARK SCHWARZ 09/09 Released w/o Limitations [employer] Dez PEÑALOZAB ([facility] [place]) Medical Group Dez [place] 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) OUTPATIENT [id number] 7 WWE NI HOLLINS 10/21 Released w/o Limitations [facility] Dez [place] [facility]G ynecolo gy) [facility] Dez [employer] 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 CONSULT [id number] Notes Entered by: Breanna HOLLINS 26 Oct 2018 1035 ------- ------- ------- ------- -- OZIEL Reed 10/26 Released w/o Limitations [facility] Dez [place] [facility]G ynecolo gy) [address] [place] [address] Group Dez [place] 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 CONSULT [id number] Notes Entered by: Breanna HOLLINS 28 Oct 2018 1339 ------- ------- ------- ------- -- OZIEL Reed 10/28 Released w/o Limitations [facility] Dez [place] [facility]G ynecolo gy) Medical Group Dez B [facility]Sco tt Internal Medicine Tm) OUTPATIENT [id number] F/U blood pressur e SHARIF OLEA 11/16 Released w/o Limitations [facility] Dez [place] [facility]S cott Interna l Medicin e Tm) [facility] Dez [place] 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) OUTPATIENT [id number] 5 f/u yeast infecti on 100.938 .2533 CASRTO ROSENBAUM 11/19 Released w/o Limitations [facility] Dez [employer] [facility]G ynecolo gy) [address] [place] [address] Dez [facility])(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 CONSULT [id number] Notes Entered by: Breanna HOLLINS 22 Nov 2018 0830 ------- ------- ------- ------- -- OZIEL Reed 11/22 Released w/o Limitations [address] [place] [address])(G anish gy) [address] [place] [address])(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 CONSULT [id number] Notes Entered by: CASTRO ROSENBAUM 26 Nov 2018 1348 ------- ------- ------- ------- -- CASTRO Mckeon 11/[address] [place] [address])(Donald oconnell gy) [address] [place] [address])(Sco tt Internal Medicine Tm) TELE CONSULT [id number] Notes Entered by: MOOKIE SCHAFFER 29 Nov 2018 0943 ------- ------- ------- ------- -- Med Marino /Jose /452.28 05 CASEY ANDRSE 11/29 Medication Refill Forwarded [address] [place] [address])(S cott Interna l Medicin e Tm) [address] [place] [address])(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 CONSULT [id number] Notes Entered by: VERA LERMA 07 Dec 2018 1028 ------- ------- ------- ------- -- Scanned bone density into ELIZABETH WATTS 12/[address] [place] [address])(G anish gy) [address] [place] [address])(C Pharm D Clinic) OUTPATIENT [id number] 5 3 MONTH DM F/U CLARK SCHWARZ 12/09 Released w/o Limitations [address] [place] [address] Dez [facility])(I Pharm D Clinic) [address] [place] [address])(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) OUTPATIENT [id number] f/u for pain - [phone] CASTRO ROSENBAUM 01/21 Released w/o Limitations [address] [place] [address] Dez [facility])(G ynecoedith gy) [address] [place] [address] Dez [facility])([facility]) OUTPATIENT [id number] 1 VIRTUAL SPEC 2 MONTH DM F/U CLARK SCHWARZ 01/26 Released w/o Limitations [address] [place] [address] Dez [facility])(I [facility]) [address] [place] [address] Dez B [facility] ) TELE CONSULT [id number] Notes Entered by: MOOKIE SCHAFFER 04 Feb 2019 0953 ------- ------- ------- ------- -- Med Renewal /Jose / CASEY ANDRES 02/04 Medication Refill Forwarded [address] [place] [address] Dez [facility])(S cott Interna l Medicin e Tm) [address] [place] [address] Dez [facility])([facility] Internal Medicine Tm) TELE CONSULT [id number] Notes Entered by: DEVI MASON 28 Feb 201927 ------- ------- ------- ------- -- Med Renewal /Jose // kaylam CASEY ANDRES 02/28 Medication Refill Forwarded [address] [place] [address] Dez [facility])(S cott Interna l Medicin e Tm) [address] [place] [address] Dez B [facility]) OUTPATIENT [id number] 1 3 MONTH DM F/U CLARK SCHWARZ 03/08 Released w/o Limitations [address] [place] [address] Dez [facility])(I [facility]) [address] [place] [address])(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) OUTPATIENT [id number] 0 left breast lump - [phone] AMISH ADAMS 03/14 Released w/o Limitations [address] [place] [address] Dez [facility])(G babatundelo gy) [address] [place] [address])([facility]) OUTPATIENT [id number] Type 2 diabete s mellitu s without complic ations ELIZABETH, EDWINA S 03/14 Released w/o Limitations [address] [place] [address])(N utriti nal Medicin e) [address] [place] [address])([facility] Internal Medicine Tm) TELE CONSULT [id number] Notes Entered by: ADRIEL COSBY 28 Mar 2019 1110 ------- ------- ------- ------- -- Med Renewal / Jose / - sgj CASEY ANDRES 03/28 Medication Refill Forwarded [address] [place] [address])(S cott Interna l Medicin e Tm) [address] [place] [address])([facility]) OUTPATIENT [id number] ELIZABETH, EDWINA S 04/11 Released w/o Limitations [address] [place] [address])(N [facility] Medicin e) [address] [place] [address])([facility] Internal Medicine Tm) TELE CONSULT [id number] Notes Entered by: ADRIEL COSBY 10 May 2019 0943 ------- ------- ------- ------- -- Med Renewal / Jose / - sgj CASEY ANDERS 05/10 Other Not Elsewhere Classified [address] [place] [address])(S cott Interna l Medicin e Tm) [address] [place] [address])(C Pharm [facility] Clinic) OUTPATIENT [id number] 5 3 MONTH DM F/U CLARK SCHWARZ 06/08 Released w/o Limitations [address] [place] [address])(I Pharm [facility]) [address] [place] [address])([facility] Internal Medicine Tm) TELE CONSULT [id number] Notes Entered by: FRANCO SCHWARZ 09 Jun 2019 1244 ------- ------- ------- ------- -- Appt for ear pain/ne w ortho referra l/med refill CASEY ANDRES 06/[address] [place] [address])(S cott Interna l Medicin e Tm) [address] [place] [address])([facility]) OUTPATIENT [id number] left ear pain X 2 weeks REGGIE ESPINO 06/09 Released w/o Limitations [address] [place] [address])(S cott Interna l Medicin e Tm) [address] [place] [address])([facility]) OUTPATIENT [id number] 1 3 MONTH DM F/U CLARK SCHWARZ 08/18 Released w/o Limitations [address] [place] [address])([facility] Pharm [facility]) [address] [place] [address])([facility] Internal Medicine Tm) TELE CONSULT [id number] Notes Entered by: BERTA HYMAN 09 Nov 2019 0949 ------- ------- ------- ------- -- Network results Orthope dics 020 ONURR REGGIE ESPINO 11/[address] [place] [address])(S cott Interna l Medicin e Tm) [address] [place] [address])([facility] Internal Medicine Tm) TELE CONSULT [id number] Notes Entered by: TOMMY HEWITT 13 Dec 2019 1353 ------- ------- ------- ------- -- Med CASEY Romo 12/12 Medication Refill Forwarded [address] [place] [address])(S cott Interna l Medicin e Tm) 0055C-[id number] [facility] Vaccine [id number] 08/09 [address] [facility] Procedures Combined list of: 1) Procedures from Department of Veterans Affairs facilities going [facility], not all VA non-surgical procedures are included; 2) All procedures from the Department of Defense facilities. Procedure Procedure Type Code Date Perfomer Comments [facility] e SCREENING TEST OF VISUAL ACUITY, QUANTITATIVE, BILATERAL 2011 DoD MEDICATION THERAPY MGT SERVICE(S) PROVIDED,A NATHALIA LÓPEZ,FACE-T O-FACE W PATIENT,WITH ASSESS & INTERVENE IF PROVIDED;EA ADDITION 15 MINUTES (LIST SEPARATELY IN ADDITION TO CODE FOR PRIM SERVICE) 2019 DoD MEDICATION THERAPY MGT SERVICE(S) PROVIDED,A NATHALIA LÓPEZ,FACE-T O-FACE W PATIENT,WITH ASSESS & INTERVENE IF PROVIDED;EA ADDITION 15 MINUTES (LIST SEPARATELY IN ADDITION TO CODE FOR PRIM SERVICE) 2018 [facility] MEDICAL NUTRITION THERAPY; RE-ASSESSMENT AND INTERVENTION, INDIVIDUAL, [id number] WITH THE PATIENT, EACH [address] [facility] INCISION AND DRAINAGE OF ABSCESS (EG, CARBUNCLE, SUPPURATIVE HIDRADENITIS, CUTANEOUS OR SUBCUTANEOUS ABSCESS, CYST, FURUNCLE, OR PARONYCHIA); SIMPLE OR SINGLE 2018 [facility] MEDICAL NUTRITION THERAPY; GROUP (2 OR MORE INDIVIDUAL(S)), EACH 30 MINUTES 2018 [facility] MEDICATION THERAPY MGT SERVICE(S) PROVIDED,A NATHALIA LÓPEZ,FACE-T O-FACE W PATIENT,WITH ASSESS & INTERVENE IF PROVIDED;EA ADDITION 15 MINUTES (LIST SEPARATELY IN ADDITION TO CODE FOR PRIM SERVICE) 2018 [facility] ONLINE ASSESS &MANAG SERV PROVIDE,A QUAL NONPHYS HCP TO AN ESTABLISHED PAT/GUARDIAN,NOT ORIGINAT FRM RELAT ASSESS &MANAG SERV PROVIDE W/IN THE PREV 7 DAYS,USE THE INTERNET/SIMILAR [employer]WORK 2018 [facility] MEDICATION THERAPY MGT SERVICE(S) PROVIDED,A NATHALIA LÓPEZ,FACE-T O-FACE W PATIENT,WITH ASSESS & INTERVENE IF PROVIDED;EA ADDITION 15 MINUTES (LIST SEPARATELY IN ADDITION TO CODE FOR PRIM SERVICE) 2018 [facility] SCREENING PAPANICOLAOU SMEAR; OBTAINING, PREPARING AND CONVEYANCE OF CERVICAL OR VAGINAL SMEAR TO LABORATORY 2018 [facility] MEDICATION THERAPY MANAGEMENT SERVICE(S) PROVIDED BY A PHARMACIST, INDIVIDUAL, [id number] WITH PATIENT, WITH ASSESSMENT AND INTERVENTION IF PROVIDED; INITIAL 15 MINUTES, ESTABLISHED PATIENT 2018 [facility] MEDICATION THERAPY MGT SERVICE(S) PROVIDED,A NATHALIA LÓPEZ,FACE-T O-FACE W PATIENT,WITH ASSESS & INTERVENE IF PROVIDED;EA ADDITION 15 MINUTES (LIST SEPARATELY IN ADDITION TO CODE FOR PRIM SERVICE) 2017 [facility] MEDICATION THERAPY MANAGEMENT SERVICE(S) PROVIDED BY A PHARMACIST, INDIVIDUAL, [id number] WITH PATIENT, WITH ASSESSMENT AND INTERVENTION IF PROVIDED; INITIAL 15 MINUTES, ESTABLISHED PATIENT 2017 [facility] MEDICATION THERAPY MANAGEMENT SERVICE(S) PROVIDED BY A PHARMACIST, INDIVIDUAL, [id number] WITH PATIENT, WITH ASSESSMENT AND INTERVENTION IF [...] 2009 DoD DETERMINATION OF REFRACTIVE STATE 2007 [facility] MEDICAL NUTRITION THERAPY; GROUP (2 OR MORE INDIVIDUAL(S)), EACH [address] [facility] ENDOMETRIAL SAMPLING (BIOPSY) WITH OR WITHOUT ENDOCERVICAL SAMPLING (BIOPSY), WITHOUT CERVICAL DILATION, ANY METHOD (SEPARATE PROCEDURE) 2005 DoD CRUTCHES UNDERARM, WOOD, ADJUSTABLE OR FIXED, PAIR, WITH PADS, TIPS AND HANDGRIPS 2004 DoD INFUSION, NORMAL SALINE SOLUTION, 250 CC 2003 DoD INJECTION, KETOROLAC TROMETHAMINE, PER [address] [facility] SCREENING PAPANICOLAOU SMEAR; OBTAINING, PREPARING AND CONVEYANCE OF CERVICAL OR VAGINAL SMEAR TO LABORATORY 2002 [facility] SPIROMETRY, INCLUDING GRAPHIC RECORD, TOTAL AND TIMED VITAL CAPACITY, EXPIRATORY FLOW RATE MEASUREMENT(S), WITH OR WITHOUT MAXIMAL VOLUNTARY VENTILATION 2002 [facility] CARDIOVASCULAR STRESS TEST USING MAXIMAL OR SUBMAXIMAL TREADMILL OR BICYCLE EXERCISE,CONTINUOUS ELECTROCARDIOGRAPHIC MONITORING,AND/OR PHARMACOLOGICAL STRESS;W SUPERVISION,INTERPRETAT ION AND REPORT 2002 [facility] CARDIOVASCULAR STRESS TEST USING TREADMILL 2002 [facility] INFUSION, NORMAL SALINE SOLUTION, [address] [facility] ENDOMETRIAL SAMPLING (BIOPSY) WITH OR WITHOUT ENDOCERVICAL SAMPLING (BIOPSY), WITHOUT CERVICAL DILATION, ANY METHOD (SEPARATE PROCEDURE) 2001 [facility] Incision And Drainage Of Skin Absce , Simple Incision And Drainage Of Skin Abscess, Simple [id number] [facility] Medical Nutrition Therapy Group (2 or More Individual(s)) Medical Nutrition Therapy Group (2 or More Individual(s)) [id number] [facility] Medication Management By Pharmacist Each Additional 15 Min Medication Management By Pharmacist Each Additional 15 Min [id number] 2018 CLARK SCHWARZ Med Management By Pharmacist Initial 15 Min Estab Patient Med Management By Pharmacist Initial 15 Min Estab Patient [id number] 2018 CLARK SCHWARZ Internet Med Svc Qual Nonphys Healthcare Prof Estab Patient Internet Med Svc Qual Nonphys Healthcare Prof Estab Patient [id number] 2018 CLARK SCHWARZ Medication Management By Pharmacist Each Additional 15 Min Medication Management By Pharmacist Each Additional 15 Min [id number] 2018 CLARK SCHWARZ Med Management By Pharmacist Initial 15 Min Estab Patient Med Management By Pharmacist Initial 15 Min Estab Patient [id number] 2018 CLARK SCHWARZ Screening papanicolaou smear; obtaining, preparing and conveyance of cervical or vaginal smear to laboratory [address] [facility] Medication Management By Pharmacist Each Additional 15 Min Medication Management By Pharmacist Each Additional 15 Min [id number] 2018 CLARK SCHWARZ Med Management By Pharmacist Initial 15 Min Estab Patient Med Management By Pharmacist Initial 15 Min Estab Patient [id number] 2018 CLARK SCHWARZ Medication Management By Pharmacist Each Additional 15 Min Medication Management By Pharmacist Each Additional 15 Min [id number] 2017 CLRAK SCHWARZ Med Management By Pharmacist Initial 15 Min Estab Patient Med Management By Pharmacist Initial 15 Min Estab Patient [id number] 2017 KARISHMACLARK HARTMAN Med Management By Pharmacist Initial 15 Min Estab Patient Med Management By Pharmacist Initial 15 Min Estab Patient [id number] 2017 CLARK SCHWARZ Med Management By Pharmacist Initial 15 Min New Patient Med Management By Pharmacist Initial 15 Min New Patient [id number] [facility] Non-Physician Phone Call To Patient/Provider Brief (5-10min) Non-Physician Phone Call To Patient/Provider Brief (5-10min) [id number] [facility] Non-Physician Phone Call To Patient/Provider Brief (5-10min) Non-Physician Phone Call To Patient/Provider Brief (5-10min) [id number] [facility] Non-Physician Phone Call To Patient/Provider Brief (5-10min) Non-Physician Phone Call To Patient/Provider Brief (5-10min) [id number] [facility] Non-Physician Phone Call To Patient/Provider Brief (5-10min) Non-Physician Phone Call To Patient/Provider Brief (5-10min) [id number] [facility] Non-Physician Phone Call To Patient/Provider Brief (5-10min) Non-Physician Phone Call To Patient/Provider Brief (5-10min) [id number] [facility] Non-Physician Phone Call To Patient/Provider Brief (5-10min) Non-Physician Phone Call To Patient/Provider Brief (5-10min) [id number] [facility] Non-Physician Phone Call To Patient/Provider Brief (5-10min) Non-Physician Phone Call To Patient/Provider Brief (5-10min) [id number] [facility] Non-Physician Phone Call To Patient/Provider Brief (5-10min) Non-Physician Phone Call To Patient/Provider Brief (5-10min) [id number] [facility] Non-Physician Phone Call To Patient/Provider Brief (5-10min) Non-Physician Phone Call To Patient/Provider Brief (5-10min) [id number] [facility] Non-Physician Phone Call To Patient/Provider Brief (5-10min) Non-Physician Phone Call To Patient/Provider Brief (5-10min) [id number] 2016 CASEY ANDRES Non-Physician Phone Call To Patient/Provider Brief (5-10min) Non-Physician Phone Call To Patient/Provider Brief (5-10min) [id number] 2016 GERMAINE AGUDELO Telephone calls by a registered nurse to a disease management program member for monitoring purposes; per month 2016 VICTORINO MADRIGAL Non-Physician Phone Call To Patient/Provider Brief (5-10min) Non-Physician Phone Call To Patient/Provider Brief (5-10min) [id number] [facility] Non-Physician Phone Call To Patient/Provider Brief (5-10min) Non-Physician Phone Call To Patient/Provider Brief (5-10min) [id number] 2015 SAI GURORLA Non-Physician Phone Call To Patient/Provider Brief (5-10min) Non-Physician Phone Call To Patient/Provider Brief (5-10min) [id number] 2015 GERMAINE AGUDELO Non-Physician Phone Call To Patient/Provider Brief (5-10min) Non-Physician Phone Call To Patient/Provider Brief (5-10min) [id number] 2015 GERMAINE AGUDELO Non-Physician Phone Call To Patient/Provider Brief (5-10min) Non-Physician Phone Call To Patient/Provider Brief (5-10min) [id number] 2015 CASEY ANDRES Non-Physician Phone Call To Patient/Provider Brief (5-10min) Non-Physician Phone Call To Patient/Provider Brief (5-10min) [id number] 2014 CASEY ANDRES Telephone calls by a registered nurse to a disease management program member for monitoring purposes; per month 2014 VICTORINO MADRIGAL Non-Physician Phone Call To Patient/Provider Brief (5-10min) Non-Physician Phone Call To Patient/Provider Brief (5-10min) [id number] 2014 VICTORINO MADRIGAL Non-Physician Phone Call To Patient/Provider Brief (5-10min) Non-Physician Phone Call To Patient/Provider Brief (5-10min) [id number] 2014 CASEY ANDRES Non-Physician Phone Call To Patient/Provider Brief (5-10min) Non-Physician Phone Call To Patient/Provider Brief (5-10min) [id number] 2013 CASEY ANDRES Determination Of Refractive State Determination Of Refractive State 12865 2013 ROSHAN PROCTOR Diabetic indicator; retinal eye exam, dilated, bilateral 2013 ROSHAN PROCTOR Ophthalmological New Patient Start Comprehensive Care Ophthalmological New Patient Start Comprehensive Care [id number] 2013 ROSHAN PRCOTOR Non-Physician Phone Call To Pt/Provider Intermed (11-20 min) Non-Physician Phone Call To Pt/Provider Intermed (11-20 min) [id number] [facility] Non-Physician Phone Call To Patient/Provider Brief (5-10min) Non-Physician Phone Call To Patient/Provider Brief (5-10min) [id number] 2013 SHAHZAD JAMES Non-Physician Phone Call To Patient/Provider Brief (5-10min) Non-Physician Phone Call To Patient/Provider Brief (5-10min) [id number] 2013 CASEY ANDRES Screening papanicolaou smear; obtaining, preparing and conveyance of cervical or vaginal smear to laboratory 2013 LUIS PROCTOR Non-Physician Phone Call To Patient/Provider Brief (5-10min) Non-Physician Phone Call To Patient/Provider Brief (5-10min) [id number] 2012 SHAHZAD JAMES Non-Physician Phone Call To Patient/Provider Brief (5-10min) Non-Physician Phone Call To Patient/Provider Brief (5-10min) [id number] 2012 SHAHZAD JAMES Non-Physician Phone Call To Patient/Provider Brief (5-10min) Non-Physician Phone Call To Patient/Provider Brief (5-10min) [id number] 2012 SHAHZAD JAMES Ophthalmological Prior Patient Start Intermediate Level Care Ophthalmological Prior Patient Start Intermediate Level Care [id number] [facility] Screening papanicolaou smear; obtaining, preparing and conveyance of cervical or vaginal smear to laboratory 2010 EFFIE DORADO Determination Of Refractive State Determination Of Refractive State [address] [facility] Ophthalmological Prior Patient Start Comprehensive Care Ophthalmological Prior Patient Start Comprehensive Care [id number] [facility] Immunization Administration One Vaccine Immunization Administration One Vaccine 26473 2009 ISABELLA SALAMANCA [facility] Influenza Split Virus Vaccine Age 3+ Years Intramuscular 2009 ISABELLA SALAMANCA [facility] Non-Physician Phone Call To Patient/Provider Brief (5-10min) Non-Physician Phone Call To Patient/Provider Brief (5-10min) [id number] [facility] Non-Physician Phone Call To Pt/Provider Intermed (11-20 min) Non-Physician Phone Call To Pt/Provider Intermed (11-20 min) [id number] [facility] Diabetic indicator; retinal eye exam, dilated, bilateral [address] [facility] Determination Of Refractive State Determination Of Refractive State [address] [facility] Ophthalmological Prior Patient Start Comprehensive Care Ophthalmological Prior Patient Start Comprehensive Care [id number] [facility] Non-Physician Phone Call To Patient/Provider Brief (5-10min) Non-Physician Phone Call To Patient/Provider Brief (5-10min) [id number] [facility] Diabetic indicator; retinal eye exam, dilated, bilateral [address] [facility] Determination Of Refractive State Determination Of Refractive State [address] [facility] Visual Ross Test Intermediate Examination Visual Ross Test Intermediate Examination [id number] [facility] Ophthalmological New Patient Start Comprehensive Care Ophthalmological New Patient Start Comprehensive Care [id number] [facility] Medical Nutrition Therapy Group (2 or More Individual(s)) Medical Nutrition Therapy Group (2 or More Individual(s)) [id number] [facility] Biopsy Endometrial, Without Cervical Dilation Biopsy Endometrial, Without Cervical Dilation [id number] [facility] Screening papanicolaou smear; obtaining, preparing and conveyance of cervical or vaginal smear to laboratory [address] [facility] Cervical Pap Smear Cervical Pap Smear [id number] [facility] Medical Nutrition Therapy Re-a e ment, Intervention Medical Nutrition Therapy Re-assessment, Intervention [id number] [facility] Med Management By Pharmacist Initial 15 Min Estab Patient Med Management By Pharmacist Initial 15 Min Estab Patient [id number] [facility] Medication Management By Pharmacist Each Additional 15 Min Medication Management By Pharmacist Each Additional 15 Min [id number] KARISHMA, CLARK Riley [facility] No data available for this section Ambulatory Pharmacy Social History Combined list of available smoking, tobacco, and other social history from Department of Defense and Veterans Affairs facilities. Social History Type Response Date Comment [facility] e Sex Representation Female (finding) 10/30/2022 Unknown Organization This section is an empty social history section. [facility] Sexual Orientation Ambula tory Pharmacy Gender identity [...] of Defense and Veterans Affairs (VA).VA Functional Gilson Measurement (FIM) Scale: 1 = Total Assistance (Subject = 0% +), 2 = Maximal Assistance (Subject = 25% +), 3 = Moderate Assistance (Subject = 50% +), 4 = Minimal Assistance (Subject = 75% +), 5 = Supervision, 6 = Modified Gilson (Device), 7 = Complete Gilson (Timely, Safely). Assessment Date/Time Source Assessment Type Assessment Skill Assessment Score Assessment Details No data available for this section
[2025-02-20 15:24] LABS: Add Urine Microscopic? YES; Appearance Urine Clear (Clear); Bacteria Urine 4+ /hpf; Bilirubin Urine Negative (Negative); Blood Urine Negative (Negative); Color Urine Yellow (Yellow); Glucose Urine UA Negative (Negative); Ketones Urine Trace mg/dL (Negative); Leukocyte Esterase Ur 2+ LEU/UL (Negative); Nitrate Urine Positive (Negative); Non Pathogenic Casts 0-2; Protein Urine Negative (Negative); RBC Urine 0-2 /hpf (0-2); Specific Grav Ur 1.023 (1.001-1.035); Squamous Epithelial Cell Urine Occasional /hpf (Few); pH Urine 5.5 (5.0-9.0)
[2025-02-20 15:37] VITALS: BP 124/54; PULSE 66; RESP 15; O2SAT 96
[2025-02-20 16:24] VITALS: BP 116/58; PULSE 66; RESP 16; TEMP 36.4; O2SAT 96
== END 2025-02-20 16:26 | disposition home or self-care (01) ==
PROVIDERS: Emergency Provider Student in an Organized Health Care Education/Training Program; PCP Emergency Medicine
DX: N39.0 Urinary tract infection, site not specified (principal); R10.32 Left lower quadrant pain; I48.91 Unspecified atrial fibrillation; I11.0 Hypertensive heart disease with heart failure; I50.9 Heart failure, unspecified; E11.69 Type 2 diabetes mellitus with other specified complication; E78.5 Hyperlipidemia, unspecified; E11.40 Type 2 diabetes mellitus with diabetic neuropathy, unspecified; E55.9 Vitamin D deficiency, unspecified; E03.9 Hypothyroidism, unspecified; J44.9 Chronic obstructive pulmonary disease, unspecified; G47.33 Obstructive sleep apnea (adult) (pediatric); F32.A Depression, unspecified; M19.90 Unspecified osteoarthritis, unspecified site; Z96.641 Presence of right artificial hip joint; Z85.3 Personal history of malignant neoplasm of breast; Z87.891 Personal history of nicotine dependence; Z87.440 Personal history of urinary (tract) infections; K80.20 Calculus of gallbladder without cholecystitis without obstruction; K42.9 Umbilical hernia without obstruction or gangrene; Z79.82 Long term (current) use of aspirin; Z79.899 Other long term (current) drug therapy; Z79.4 Long term (current) use of insulin; Z79.85 Long-term (current) use of injectable non-insulin antidiabetic drugs; Z79.84 Long term (current) use of oral hypoglycemic drugs; Z95.818 Presence of other cardiac implants and grafts
CPT/HCPCS: 36415; 74176; 80053; 81001; 83690; 85025; 87086; 87186; 96361; 96374; 99284; A9270; J2270; J7120

== ENCOUNTER 2025-02-27 10:34 | Outpatient (CLI) | payer MEDICARE, OTHER, SELFPAY ==
--- NOTE | ~2025-02-27 | XR_ITS ---
3 VIEWS LUMBAR SPINE Ordering provider: Aba Song MD History: . M54.50 - Low back pain, unspecified . Comparison: None. FINDINGS: VERTEBRAL BODIES: No visible fracture or subluxation. Degenerative changes of the spine. DISK SPACES: Narrowing of the disc L2-L3. Multilevel facet joint disease. SOFT TISSUES: Normal. IMPRESSION: No acute osseous abnormality lumbar spine. Narrowing of the disc L2-L3. Multilevel facet joint disease. Reviewed, dictated and finalized at location A.
[2025-02-27 11:24] LABS: Alanine Aminotransferase 20 U/L (6-35); Albumin Level 4.4 g/dL (3.5-5.1); Alkaline Phosphatase 46 U/L (38-126); Anion Gap 11 mmol/L (4-12); Aspartate Amino Transferase 25 U/L (14-36); Blood Urea Nitrogen 18 mg/dL (7-17); Calcium 9.8 mg/dL (8.4-10.2); Carbon Dioxide 26 mmol/L (22-30); Chloride 105 mmol/L (98-107); Cholesterol 149 mg/dL (0-200); Estimated Glomerular Filt Rate 47; Glucose 122 mg/dL (65-110); HDL Direct 53 mg/dL; Sodium 142 mmol/L (137-145); Triglycerides 158 mg/dL (<150)
[2025-02-27 11:35] LABS: LDL Cholesterol Direct 46 mg/dL
[2025-02-27 11:44] LABS: Hemoglobin A1C 5.6 % (<5.7)
[2025-02-27 12:03] LABS: Vitamin D 25 Hydroxy 35.7 ng/mL
[2025-02-27 12:06] LABS: Creatinine Urine 138.7 mg/dL
[2025-02-27 12:10] LABS: MALB Creatinine Ratio 15.7 mg/g (0-30); Microalbumin Urine Random 21.8 mg/L (0-16.7)
[2025-02-27 12:30] LABS: Folic Acid 5.5 ng/mL (2.76->20)
== END 2025-02-27 10:35 | disposition home or self-care (01) ==
LOC: ANHIMG 10:38
PROVIDERS: PCP Emergency Medicine; Visit Provider Emergency Medicine
DX: D52.0 Dietary folate deficiency anemia (principal); E11.9 Type 2 diabetes mellitus without complications; E78.5 Hyperlipidemia, unspecified; E55.9 Vitamin D deficiency, unspecified; M54.50 Low back pain, unspecified
CPT/HCPCS: 36415; 72100; 80053; 80061; 82043; 82306; 82607; 82746; 83036

== ENCOUNTER 2025-03-14 09:37 | Outpatient (CLI) | payer MEDICARE, OTHER, SELFPAY ==
--- OUTSIDE RECORDS SUMMARY | 2025-03-14 09:42 | XMS_ITS | Encounter Summary ---
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
--- OUTSIDE RECORDS SUMMARY | 2025-03-14 09:43 | XMS_ITS | Encounter Summary ---
Author Organization [facility] Address [address] [place] [address] Phone Care Team Providers Care Dental Assistant Instructor Name Role Phone Aba Song MD Primary Care Provide r Reason for Referral * Procedure (Routine) - Closed Specialty Diagnoses / Procedures Referred By Jolene heart Referred To Contact Diagnoses penitentiary current use of amiodarone Procedures Pulmonary Function Test -External Richard Collier MD [address] [facility] [address] [place] [address], [address] [address] Phone: tel: fax: Referral ID Status Reason Start Date Expiration Date Visits Re quested Visits Authorized [id number] Closed 05/26/2022 06/25/2023 1 1 Reason for Visit * Procedure (Routine) - Closed Specialty Diagnoses / Procedures Referred By Jolene heart Referred To Contact Diagnoses penitentiary current use of amiodarone Procedures Pulmonary Function Test -External Richard Collier MD [address] [facility] [address], [address] [address] Phone: tel: fax: Referral ID Status Reason Start Date Expiration Date Visits Re quested Visits Authorized [id number] Closed 05/26/2022 06/25/2023 1 1 Encounter Details Date Type Department Care Team (Latest Contact Info) Description 06/20/2022 12:39 PM CDT Hospital Encounter [facility] PFT Lab [address] [place] [address] director long term care current use of amiodarone Social History Tobacco [...] often do you attend chur ch or episcopalian services? Never 01/29/2021 Do you belong to any clubs o r organizations such as islam groups, unions, fraternal or athletic groups, or [...] place to sleep or slept in a care home (including now)? 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 Gender Identity Female 04/16/2020 9:15 AM CDT Sexual Orientation Straight 04/16/2020 9: 15 AM CDT documented as of this encounter Plan of Treatment Not on file documented as of this encounter Procedures Procedure Name Priority Date/Time Associated Diagnosis Comments PULMONARY FUNCTION TEST (PFT) Routine 06/20/2022 1:44 PM CDT director long term care current use of amiodarone documented in this encounter Results * Pulmonary Function Test - (06/20/2022 1:44 PM CDT) FVC PRE 2.90 L [facility] FVC %PRE PRED 100 % [facility] FEV1 PRE 2.45 L [facility] FEV1 %PRE PRED 108 % [facility] FEV1/FVC PRE 84.6 % [facility] FRC PL PRE 2.[address] [facility] FRC PL %PRE PRED 103 % [facility] RV PRE 2.35 L [facility] RV %PRE PRED 111 % [facility] TLC PRE 5.35 L [facility] TLC %PRE PRED 107 % [facility] DLCO PRE 14.5 ml/min/mmH g [facility] DLCO %PRE PRED 75 % [facility] Anatomical Region Laterality Modality PFT 06/20/2022 12:5 [...] documented as of this encounter Care Teams Dental Assistant Instructor Relationship Specialty Start Date End Date Aba Song MD [address] [place] [address] PCP - General Emergency Medicine 03/15/20 documented as of this encounter
--- OUTSIDE RECORDS SUMMARY | 2025-03-14 09:43 | XMS_ITS | Clinical Summary ---
Author Organization [facility] Address [address] [place] [address] Care Team Providers Care Roller Leveler Operator Name Role Phone Unavailable Primary Care [...]
--- OUTSIDE RECORDS SUMMARY | 2025-03-14 09:43 | XMS_ITS | Referral Summary ---
Author Organization [facility] [address] Address [address] [place] [address] Care Team Providers Care Plasma Cutting Machine Operator Name Role Phone Aba Song [...] by mouth daily with breakfast 3 Active Ozempic 1 mg/dose (4 mg/3 mL) pen injector injection 4 Active furosemide (LASIX) 20 mg tabletIndication s:Chronic systolic congestive heart failure (HCC) Take 1 tablet (20 mg total) by mouth daily 90 tablet 2 4 Active amiodarone (PACERONE) 200 mg tabletIndication s:Ventricular [...] 90 tablet 2 5 09/15/19 26 Active sacubitriL-valsa rtan (ENTRESTO) 49-51 mg tabletIndication s:chronic heart failure Take 1 tablet by mouth 2 (two) times a day 180 tablet 1 5 02/28/20 26 Active sacubitriL-valsa rtan (ENTRESTO) 49-51 mg tabletIndication s:chronic heart failure Take 1 tablet by mouth 2 (two) times a day 60 tablet 4 02/28/20 25 Discontin ued(Reord er) Active Problems Problem Noted Date Diagnosed Date [...] 112 mcg daily. 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 No evidence of bleeding or hematoma [...] watchman via right femoral vein with 14 Wallisian sheath. No evidence of bleeding or hematoma [...] often do you attend chur ch or scientologist services? Never 01/29/2021 Do you belong to [...] on file Legal Sex Female 4:56 AM COLLECT ON DELIVERY CLERK Gender Identity Female 04/16/2020 9:15 AM CDT Sexual Orientation Straight 04/16/2020 9: 15 AM CDT Last Filed Vital Signs Vital Sign Reading Time Taken Comments Blood Pressure 134/86 10/25/2024 10:25 AM COLLECT ON DELIVERY CLERK Pulse 71 10/25/2024 10:25 AM COLLECT ON DELIVERY CLERK Temperature 37 C (98.6 F) 05/05/2022 10:59 AM CDT Respiratory Rate 29 01/02/2022 10:40 AM CDT Oxygen Saturation 97% 10/25/2024 10:25 AM COLLECT ON DELIVERY CLERK Inhaled Oxygen Concentration - - Weight 108.9 kg (240 lb) 10/25/2024 10:25 AM COLLECT ON DELIVERY CLERK Height 165.1 cm (5' 5) 10/25/2024 10:25 AM COLLECT ON DELIVERY CLERK Body Mass Index 39.94 10/25/2024 10:25 AM COLLECT ON DELIVERY CLERK Plan of Treatment Not on file Medical Devices Implanted Type Area Sales Agent Business Services Device Identifier Shelf Expiration Date Model / Serial / Lot [place] Craniomaxillof acial [id number] Duramatrix-Onl ay Plus 7x5in Regeneration Membrane Patch Dural - S000 - [id number] Implanted:Qty: 1 on 01/26/2021 by Zak Robison MD at [facility] Graft Right: Cranial Farideh Craniomaxillofaci al [id number] 07/07/2023 [id number] / 000 / [id number] Other - See Comments Other - see comments Hip Description:Right hip replac ement 2017 [employer] [employer] Ninoska [id number] Occluder Cardiovascular 20mm Dlv Sys Watchman Flx Strl - [id number] - [id number] Implanted:Qty: 1 on 11/19/2021 by Rajiv Bazan MD PhD at [facility] Other - see comments [employer] Ninoska 10/17/2023 [id number] / [id number] / [id number] Description:Watchman karen Fernwood Craniomaxillof acial [id number] [place] Neuro Iii 20mm Low Profile Tab Cover [place] - S000 - [id number] Implanted:Qty: 6 on 01/26/2021 by Zak Robison MD at [facility] Plate Right: Cranial Farideh Craniomaxillofaci al [id number] / 000 / 000 Fernwood Craniomaxillof acial [id number] [place] Neuro 3 1.5mm 4mm Self Drill Axial Stability Screw Bone Latex Free - S000 - [id number] Implanted:Qty: 24 on 01/26/2021 by Zak Robison MD at [facility] Screw Right: Cranial Fernwood Craniomaxillofaci al [id number] / 000 / 000 Watchman N/A: Heart Device Karen Watchman Procedure - [id number] Implanted:Qty: 1 on 11/20/2021 by Rajiv Bazan MD PhD at [facility] [employer] WMPERPROCDE VICE 1-3 PC / / Procedures Procedure Name Priority Date/Time Associated Diagnosis Comments LIPID PANEL Routine 10/25/2024 5:53 PM COLLECT ON DELIVERY CLERK COMPREHENSIVE METABOLIC PANEL Routine 06/06/2022 vice president financial current use of amiodarone POCT HEMOGLOBIN A1C Routine 11/06/2021 3 :48 PM COLLECT ON DELIVERY CLERK from Last 3 Months or Most Recently Relevant to Health Maintenance Results * Lipid panel (10/25/2024 5:53 PM COLLECT ON DELIVERY CLERK) SCRIBED Cholesterol, Total 111 <200 EXTERNAL LAB [...] N/A EXTERNAL LAB SCRIBED eGFR in NonAfrican Icelandic 81 < or = 60 EXTERNAL LAB Blood 06/06/2022 Richard Collier MD LAB BLOOD ORDERABLES Edit ed Result - Final EXTERNAL LAB * (ABNORMAL) POCT hemoglobin A1c (11/06/2021 3:48 PM COLLECT ON DELIVERY CLERK) Hgb A1C, POC 6.7(H) 4.0 - 5.6 % [facility] Est Average Gluc POC 146 mg/dL [facility] Comment: The ADA recommends reporting an estimated Average Glucose (eAG) with all Hemoglobin A1c results using the equation derived from a study of 507 normal and diabetic adults. Minority populations were underrepresented and children were not included. (Diabetes Care 31:9393-5100, 2008). The eAG is not equivalent to a fasting glucose. Blood 11/06/2021 3:48 PM COLLECT ON DELIVERY CLERK 11/06/2021 3:48 PM COLLECT ON DELIVERY CLERK Rajiv Bazan MD PhD POINT OF CARE TEST ORDERAB LES Final Result [facility] Department [place] [address] from Last 3 Months or Most Recently Relevant to Health Maintenance Additional Health Concerns Infection Onset Date Last Indicated MDR gram neg/ESBL 04/22/2021 04/22/2021 Insurance MEDICARE [employer]Spot MEDICARE FOR LIFE MEDICARE FOR LIFE Advance Directives For more information, please contact: [phone] * Full Code (Latest Code Status on File) Date Activated Date Inactivated Comments 11/19/2021 6:44 PM 11/20/2021 4:46 PM * Full Code Date Activated Date Inactivated Comments 04/21/2021 6:06 AM 04/23/2021 5:55 PM * Full Code Date Activated Date Inactivated Comments 01/26/2021 5:52 AM 02/07/2021 8:57 PM Care Teams Plasma Cutting Machine Operator Relationship Specialty Start Date End Date Aba Song MD [address] [place] [address] PCP - General Emergency Medicine 03/15/20
--- OUTSIDE RECORDS SUMMARY | 2025-03-14 09:43 | XMS_ITS | Clinical Summary ---
Author Organization [facility] [address] Address [address] [place] [address] Care Team Providers Care Molder Punch Name Role Phone Aba Song MD Primary [...] 112 mcg daily. 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 No evidence of bleeding or hematoma [...] watchman via right femoral vein with 14 Guamanian sheath. No evidence of bleeding or hematoma [...] reflux disease) 1999 Cancer (HCC) 04/2009 Depression 2001 Diabetes mellitus (HCC) [...] Diabetes Father Thalia Shereen Cancer Maternal Grandmother [place] Clotting disorder Mother Elizabeth Shereen Diabetes Mother Elizabeth Hsereen Heart disease Mother Elizabeth Shereen Hypertension Mother [...] Father Thalia Regan (Age 54) Maternal Grandmother [place] Mother Elizabeth Regan (Age 73) Mother's Brother 1 Gene Hinkle Alive Mother's Brother 2 Teodoro Hinkle Alive Mother's Brother 3 Orlando Hinkle Alive Mother's Sister Karly Baggerly Alive Sister 1 Kacey Ranjan Sister 2 [...] often do you attend chur ch or christianity services? Never 01/29/2021 Do you belong to any clubs o r organizations such as uatsdin groups, unions, fraternal or athletic groups, or [...] on file Legal Sex Female 4:56 AM DISC RULER OPERATOR Gender Identity Female 04/16/2020 9:15 AM CDT Sexual Orientation Straight 04/16/2020 9: 15 AM CDT Obstetrics History Last Filed Vital Signs Vital Sign Reading Time Taken Comments Blood Pressure 134/86 10/25/2024 10:25 AM DISC RULER OPERATOR Pulse 71 10/25/2024 10:25 AM DISC RULER OPERATOR Temperature 37 C (98.6 F) 05/05/2022 10:59 AM CDT Respiratory Rate 29 01/02/2022 10:40 AM CDT Oxygen Saturation 97% 10/25/2024 10:25 AM DISC RULER OPERATOR Inhaled Oxygen Concentration - - Weight 108.9 kg (240 lb) 10/25/2024 10:25 AM DISC RULER OPERATOR Height 165.1 cm (5' 5) 10/25/2024 10:25 AM DISC RULER OPERATOR Body Mass Index 39.94 10/25/2024 10:25 AM DISC RULER OPERATOR Plan of Treatment Health Maintenance Due [...] 04/08, 11/20/2021, Additional history exists Covid-19 Vaccine (2023-2 5 season) 2024 06/04/2021, 12/03/2020, 11/12/2020 Influenza Vaccine (Season Ended) 2025 06/24/2021, 05/31/2020, 06/21/2018, Additional history exists Pneumococcal vaccine 65+ (3 of 3 - PCV20 or PCV21) 06/02/2025 06/02/2020, 05/07/2010 Lipid Panel 10/25/2025 10/25/2024, 06/0 01/2024, 06/24/2023, Additional history exists Zoster Vaccine Completed 07/13/2019, 03/08, 05/26/2013 Medical Devices Implanted Type Area Smasher Device Identifier Shelf Expiration Date Model / Serial / Lot Farideh Craniomaxillof acial [id number] Duramatrix-Onl ay Plus 7x5in Regeneration Membrane Patch Dural - S000 - [id number] Implanted:Qty: 1 on 01/26/2021 by Zak Robison MD at [facility] Graft Right: Cranial Enigma Craniomaxillofaci al [id number] 07/07/2023 [id number] / 000 / [id number] Other - See Comments Other - see comments Hip Description:Right hip replac ement 2017 [employer] Ninoska [id number] Occluder Cardiovascular 20mm Dlv Sys Watchman Flx Strl - [id number] - [id number] Implanted:Qty: 1 on 11/19/2021 by Rajiv Bazan MD PhD at [facility] Other - see comments [employer] Ninoska 10/17/2023 [id number] / [id number] / [id number] Description:Tiarashant jones Farideh Craniomaxillof acial [id number] [place] Neuro Iii 20mm Low Profile Tab Cover [place] - S000 - [id number] Implanted:Qty: 6 on 01/26/2021 by Zak Robison MD at [facility] Plate Right: Cranial Enigma Craniomaxillofaci al [id number] / 000 / 000 Enigma Craniomaxillof acial [id number] [place] Neuro 3 1.5mm 4mm Self Drill Axial Stability Screw Bone Latex Free - S000 - [id number] Implanted:Qty: 24 on 01/26/2021 by Zak Robison MD at [facility] Screw Right: Cranial Enigma Craniomaxillofaci al [id number] / 000 / 000 Watchman N/A: Heart Device Klaudia Watchman Procedure - [id number] Implanted:Qty: 1 on 11/20/2021 by Rajiv Bazan MD PhD at [facility] [employer] WMPERPROCDE VICE 1-3 PC / / Procedures Procedure Name Priority Date/Time Associated Diagnosis Comments LIPID PANEL Routine 10/25/2024 5:53 PM DISC RULER OPERATOR COMPREHENSIVE METABOLIC PANEL Routine 06/06/2022 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 POCT HEMOGLOBIN A1C Routine 11/06/2021 3 :48 PM DISC RULER OPERATOR from Last 3 Months or Most Recently Relevant to Health Maintenance Results * Lipid panel (10/25/2024 5:53 PM DISC RULER OPERATOR) SCRIBED Cholesterol, Total 111 <200 EXTERNAL LAB [...] N/A EXTERNAL LAB SCRIBED eGFR in NonAfrican Trinidadian 81 < or = 60 EXTERNAL LAB Blood 06/06/2022 Richard Collier MD LAB BLOOD ORDERABLES Edit ed Result - Final EXTERNAL LAB * (ABNORMAL) POCT hemoglobin A1c (11/06/2021 3:48 PM DISC RULER OPERATOR) Pathologist [facility] Hgb A1C, POC 6.7(H) 4.0 - 5.6 % [facility] Est Average Gluc POC 146 mg/dL [facility] Comment: The ADA recommends reporting an estimated Average Glucose (eAG) with all Hemoglobin A1c results using the equation derived from a study of 507 normal and diabetic adults. Minority populations were underrepresented and children were not included. (Diabetes Care 31:5665-6675, 2008). The eAG is not equivalent to a fasting glucose. Blood 11/06/2021 3:48 PM DISC RULER OPERATOR 11/06/2021 3:48 PM DISC RULER OPERATOR Rajiv Bazan MD PhD POINT OF CARE TEST ORDERAB LES Final Result [facility] [place] [address] from Last 3 Months or Most Recently Relevant to Health Maintenance Additional Health Concerns Infection Onset Date Last Indicated MDR gram neg/ESBL 04/22/2021 04/22/2021 Insurance MEDICARE FOR LIFE MEDICARE FOR LIFE MEDICARE FOR LIFE Advance Directives For more information, please contact: [phone] * Full Code (Latest Code Status on File) Date Activated Date Inactivated Comments 11/19/2021 6:44 PM 11/20/2021 4:46 PM * Full Code Date Activated Date Inactivated Comments 04/21/2021 6:06 AM 04/23/2021 5:55 PM * Full Code Date Activated Date Inactivated Comments 01/26/2021 5:52 AM 02/07/2021 8:57 PM Care Teams Molder Punch Relationship Specialty Start Date End Date Aba Song MD [address] [place] [address] PCP - General Emergency Medicine 03/15/20
--- OUTSIDE RECORDS SUMMARY | 2025-03-14 09:43 | XMS_ITS ---
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 No evidence of bleeding or hematoma [...] watchman via right femoral vein with 14 Cook Islander sheath. No evidence of bleeding or hematoma [...]
--- OUTSIDE RECORDS SUMMARY | 2025-03-14 09:43 | XMS_ITS | Clinical Summary ---
Author Organization [facility] Address [address] [facility] [place] [address] Phone Care Team Providers Care Quality Technician Name Role Phone Zen Cunningham MD Primary Care Provider [phone]- [phone] Allergies Active Allergy Reactions Criticality Noted Date [...] tablet Take 112 mcg by mouth daily manager manufacturing. Active metoprolol tartrate (LOPRESSOR) 50 mg tablet [...] 2004 OSTEOPOROSIS SCREENING 2019 INFLUENZA VACCINE (#1) 2025 RSV VACCINE (60+ or ) (1 - 1-dose 75+ series) 2029 Care Teams Quality Technician Relationship Specialty Start Date End Date Zen Cunningham MD [address] [place] [phone] PCP - General Internal Medicine 05/27/17
[2025-03-14 10:47] LABS: Free T4 Free Thyroxine 1.81 ng/dL (0.78-2.19)
[2025-03-14 10:59] LABS: Thyroid Stimulating Hormone 1.310 uIU/mL (0.465-4.680)
== END 2025-03-14 09:38 | disposition home or self-care (01) ==
PROVIDERS: PCP Emergency Medicine; Visit Provider Nurse Practitioner Family
DX: E11.9 Type 2 diabetes mellitus without complications (principal)
CPT/HCPCS: 36415; 84439; 84443

== ENCOUNTER 2025-05-29 00:34 | Day surgery (SDC) | payer MEDICARE, OTHER, SELFPAY ==
--- OUTSIDE RECORDS SUMMARY | 2022-06-20 12:39 | XMS_ITS | Encounter Summary ---
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 current use of amiodarone Procedures Pulmonary Function Test -External Richard Collier MD [address] [facility] [address] [place] [address], [address] [address] Phone: tel: fax: Referral ID Status Reason Start Date Expiration Date Visits Re quested Visits Authorized [id number] Closed 05/26/2022 06/25/2023 1 1 Reason for Visit * Procedure (Routine) - Closed Specialty Diagnoses / Procedures Referred By Jolene heart Referred To Contact Diagnoses [facility] current use of amiodarone Procedures Pulmonary Function Test -External Richard Collier MD [address] [facility] [address], [address] [address] Phone: tel: fax: Referral ID Status Reason Start Date Expiration Date Visits Re quested Visits Authorized [id number] Closed 05/26/2022 06/25/2023 1 1 Encounter Details Date Type Department Care Team (Latest Contact Info) Description 06/20/2022 12:39 PM CDT Hospital Encounter [facility] Medicine PFT Lab 10 [facility] [address] [place] [address] long term care administrator current use of amiodarone Social History Tobacco [...] often do you attend chur ch or faith services? Never 01/29/2021 Do you belong to any clubs o r organizations such as amish groups, unions, fraternal or athletic groups, or [...] place to sleep or slept in a nursing home (including now)? 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 documented in this encounter Results * Pulmonary Function Test - (06/20/2022 1:44 PM CDT) FVC PRE 2.90 L [facility] FVC %PRE PRED 100 % [facility] FEV1 PRE 2.45 L [facility] FEV1 %PRE PRED 108 % [facility] FEV1/FVC PRE 84.6 % [facility] FRC PL PRE 2.93 L [facility] FRC PL %PRE PRED 103 % [facility] RV PRE 2.35 L [facility] RV %PRE PRED 111 % [facility] TLC PRE 5.35 L [facility] TLC %PRE PRED 107 % [facility] DLCO PRE 14.5 ml/min/mmH g [facility] DLCO %PRE PRED 75 % [facility] Anatomical Region Laterality Modality PFT 06/20/2022 12:5 1 PM CDT Narrative 06/24/2022 7:45 AM CDT PFT performed at:->External us Richard Collier MD PFT ORDERABLES Final Res ult documented in this encounter Visit Diagnoses Diagnosis [facility] current use of amiodarone documented in this encounter Additional Health Concerns Infection Onset Date Last Indicated Resolved Time MDR gram neg/ESBL 04/22/2021 04/22/2021 documented as of this encounter Care Teams In Flight Refueling Manager Relationship Specialty Start Date End Date Aba Song MD [address] [place] [address] PCP - General Emergency Medicine 03/15/20 documented as of this encounter
[2025-05-26 11:40] VITALS: BMI 43.5
[2025-05-29] VITALS (18 sets, daily range): BP systolic 110–135; BP diastolic 60–83; PULSE 61–74; RESP 14–18; TEMP 36.4; O2SAT 92–97; BMI 41.1
--- OUTSIDE RECORDS SUMMARY | 2025-05-29 00:37 | XMS_ITS | Encounter Summary ---
Author Organization [facility] Address [address] [place] [address] Care Team Providers Care Billing Specialist Name Role Phone Aba Song MD Primary Care Provide r Encounter Details Date Type Department Care Team (Late st Contact Info) Description 10/03/2022 Orders Only [facility] Health Information Management [address] [place] [id number] Scanning, Provider Social History Tobacco Use Types Packs/Day Years [...] often do you attend chur ch or synagogue services? Never 01/29/2021 Do you belong to any clubs o r organizations such as mosque groups, unions, fraternal or athletic groups, or [...] on file Legal Sex Female 4:56 AM PARISH WORKER Gender Identity Female 04/16/2020 9:15 AM CDT Sexual Orientation Straight 04/16/2020 9: 15 AM CDT documented as of this encounter Plan of Treatment Not on file documented as of this encounter Procedures Procedure Name Priority Date/Time Associated Diagnosis Comments SCAN - LABS 10/03/2022 documented in this encounter Results * SCAN - LABS (10/03/2022) us Provider Scanning Final Result documented in this encounter Visit Diagnoses Not on filedocumented in this encounter Additional Health Concerns Infection Onset Date Last Indicated Resolved Time MDR gram neg/ESBL 04/22/2021 04/22/2021 documented as of this encounter Care Teams Billing Specialist Relationship Specialty Start Date End Date Aba Song MD [address] [place] [address] PCP - General Emergency Medicine 03/15/20 documented as of this encounter
--- OUTSIDE RECORDS SUMMARY | 2025-05-29 00:37 | XMS_ITS | Encounter Summary ---
Author Organization [facility] Healthcare Address [address] [place] [address] Care Team Providers Care Driver Recruiter Name Role Phone Aba Song MD Primary Care Provide r Encounter Details Date Type Department Care Team (Late st Contact Info) Description 10/06/2022 Orders Only [facility] Health Information Management [address] [place] [address] Scanning, Provider Social History Tobacco Use [...] often do you attend chur ch or buddhism services? Never 01/29/2021 Do you belong to any clubs o r organizations such as gnosticist groups, unions, fraternal or athletic groups, or [...] on file Legal Sex Female 4:56 AM RUBY RAILS DEVELOPER Gender Identity Female 04/16/2020 9:15 AM CDT Sexual Orientation Straight 04/16/2020 9: 15 AM CDT documented as of this encounter Plan of Treatment Not on file documented as of this encounter Procedures Procedure Name Priority Date/Time Associated Diagnosis Comments SCAN - LABS 10/06/2022 SCAN - RADIOLOGY/IMAGING 10/05/2022 documented in this encounter Results * SCAN - LABS (10/06/2022) us Provider Scanning Final Result * SCAN - RADIOLOGY/IMAGING (10/05/2022) Anatomical Region Laterality Modality Other us Provider Scanning Final Result documented in this encounter Visit Diagnoses Not on filedocumented in this encounter Additional Health Concerns Infection Onset Date Last Indicated Resolved Time MDR gram neg/ESBL 04/22/2021 04/22/2021 documented as of this encounter Care Teams Driver Recruiter Relationship Specialty Start Date End Date Aba Song MD [address] [place] [address] PCP - General Emergency Medicine 03/15/20 documented as of this encounter
--- OUTSIDE RECORDS SUMMARY | 2025-05-29 00:37 | XMS_ITS | Clinical Summary ---
Author Organization [facility] Address [address] [place] [place] [address] Phone Care Team Providers Care Neurodiagnostic Technician Name Role Phone Zen Cunningham MD Primary Care Provider [phone]- [phone] Allergies Active Allergy Reactions Criticality Noted Date [...] tablet Take 112 mcg by mouth daily education research analyst. Active metoprolol tartrate (LOPRESSOR) 50 mg tablet [...] - 1-dose 75+ series) 2029 Care Teams Neurodiagnostic Technician Relationship Specialty Start Date End Date Zen Cunningham MD [address] [place] [phone] PCP - General Internal Medicine 05/27/17
--- OUTSIDE RECORDS SUMMARY | 2025-05-29 00:37 | XMS_ITS | Encounter Summary ---
Author Organization [facility] Healthcare Address [address] [place] [address] Care Team Providers Care Local Sales Associate Name Role Phone Aba Song MD Primary Care Provide r Encounter Details Date Type Department Care Team (Late st Contact Info) Description 05/11/2019 Telephone [facility] Advanced Medicine Radiation Oncology [address] [facility] [place] [address] Joes Hendricks CMA Social History Tobacco Use Types Packs/Day Years Used Date Smoking Tobacco: Former Comments Unknown Sex and Gender Information Value Date Recorded Sex Assigned at Not on file 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
--- OUTSIDE RECORDS SUMMARY | 2025-05-29 00:37 | XMS_ITS | Encounter Summary ---
Author Organization [facility] Healthcare Address [address] [place] [address] Care Team Providers Care College Or University Department Head Name Role Phone Aba Song MD Primary Care Provide r Encounter Details Date Type Department Care Team (Late st Contact Info) Description 05/15/2025 Results Follow-Up [facility] Medical Group Cardiology [address] [facility] [address], [place] [address] Richard Collier MD [address] [facility] [address] [place] [address] [place] MPI SPECT (Rest and/or Stress) Multiple Studies Social History Tobacco Use Types Packs/Day Years [...] any clubs o r organizations such as holiness groups, unions, fraternal or athletic groups, or [...] place to sleep or slept in a penitentiary (including now)? 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 Gender Identity Female 04/16/2020 9:15 AM CDT Sexual Orientation Straight 04/16/2020 9: 15 AM CDT documented as of this encounter Plan of Treatment Not on file documented as of this encounter Visit Diagnoses Not on filedocumented in this encounter Additional Health Concerns Infection Onset Date Last Indicated Resolved Time MDR gram neg/ESBL 04/22/2021 04/22/2021 documented as of this encounter Care Teams College Or University Department Head Relationship Specialty Start Date End Date Aba Song MD [address] [place] [address] PCP - General Emergency Medicine 03/15/20 documented as of this encounter
--- OUTSIDE RECORDS SUMMARY | 2025-05-29 00:37 | XMS_ITS | Encounter Summary ---
Author Organization [facility] Healthcare Address [address] [place] [address] Care Team Providers Care Ore Roaster Name Role Phone Aba Song MD Primary Care Provide r Encounter Details Date Type Department Care Team (Late st Contact Info) Description 02/06/2023 Orders Only [facility] Health Information Management [address] [place] [address] Scanning, Provider Social History Tobacco Use [...] to sleep or slept in a senior living (including now)? 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 Gender Identity Female 04/16/2020 9:15 AM CDT Sexual Orientation Straight 04/16/2020 9: 15 AM CDT documented as of this encounter Plan of Treatment Not on file documented as of this encounter Procedures Procedure Name Priority Date/Time Associated Diagnosis Comments SCAN - LABS 02/06/2023 documented in this encounter Results * SCAN - LABS (02/06/2023) us Provider Scanning Final Result documented in this encounter Visit Diagnoses Not on filedocumented in this encounter Additional Health Concerns Infection Onset Date Last Indicated Resolved Time MDR gram neg/ESBL 04/22/2021 04/22/2021 documented as of this encounter Care Teams Ore Roaster Relationship Specialty Start Date End Date Aba Song MD [address] [place] [address] PCP - General Emergency Medicine 03/15/20 documented as of this encounter
--- OUTSIDE RECORDS SUMMARY | 2025-05-29 00:38 | XMS_ITS | Clinical Summary ---
Author Organization [facility] [address] Address [address] [place] [address] Care Team Providers Care Senior Sales Operations Manager Name Role Phone Aba Song MD [...] mg/3 mL) pen injector injection 4 Active amiodarone (PACERONE) 200 mg tabletIndications [...] 90 tablet 2 5 09/15/19 26 Active sacubitriL-valsar sheldon (ENTRESTO) 49-51 mg tabletIndications :chronic heart failure Take 1 tablet by mouth 2 (two) times a day 180 tablet 1 5 02/28/20 26 Active furosemide (LASIX) 20 mg tabletIndications :Chronic systolic congestive heart failure (HCC) Take 1 tablet (20 mg total) by mouth daily 90 tablet 2 5 Active fluticasone propionate (FLONASE) 50 mcg/actuation nasal spray Administer 1 spray into each nostril daily as needed Active Active Problems Problem Noted Date Diagnosed Date Morbid (severe) obesity due to excess calories 0 01/27/2024 Body mass index 40.0-44.9, adult ([facility]) 01/26 Chest heaviness 05/26/2022 Left leg swelling 01/22/2022 Anemia 11/20/2021 [...] 112 mcg daily. Type 2 diabetes mellitus, [facility] long-term current use of insulin [...] (01/26/2021): Added automatically from request for surgery [id number] care home current use of amiodarone 12/19/2020 Chronic anticoagulation [...] Watchman via right femoral vein with 14 Estonian sheath. No evidence of bleeding or hematoma [...] watchman via right femoral vein with 14 Estonian sheath. No evidence of bleeding or hematoma on exam. - Currently in normal sinus rhythm, continue amiodarone 200 mg daily and apixaban 5 mg b.i.d. - Start aspirin 81 mg daily, TTE and chest x-ray in the AM - Monitor on Telemetry - Follows with Dr Russ Malignant neoplasm of breast 05/02/2009 CASTRO (dyspnea on exertion) Encounters Date Type Department Care Team Description 05/16/2025 Telephone [facility] Cardiology at [address] [place] [address] Vinod Collier MD 05/15/2025 Results Follow-Up [facility] Cardiology [address] [place] [address] [place], [place] [address] [place] [address] Vinod Collier MD NM MPI SPECT (Rest and/or Stress) Multiple Studies 05/12/2025 1:00 PM CDT Ancillary Procedure [facility] Cardiology at [address] [place] [address] Chest heaviness; Chronic systolic (congestive) heart failure (HCC) 05/12/2025 10:15 AM CDT Ancillary Procedure [facility] Cardiology at [address] [place] [phone] Chest heaviness 05/11/2025 Telephone [facility] Cardiology at [address] [place] [phone] Vinod Collier MD 05/03/2025 10:15 AM CDT Office Visit [facility] Cardiology [address] [facility] [address] [place] [phone] Vinod Collier MD Chest heaviness (Primary Dx); Chronic systolic (congestive) heart failure (HCC); Hyperlipidemia associated with type 2 diabetes mellitus (HCC); Nonischemic cardiomyopathy (CMS/HCC) (HCC); Paroxysmal atrial fibrillation (HCC) from Last 3 Months Surgical History [...] Jesus Manuel Shereen Alcohol abuse Daughter Jeanette Crep Hearing loss Daughter Jeanette Crep Alcohol abuse Father Thalia Shereen Cancer Father Thalia Shereen Clotting disorder Father Thalia Shereen Diabetes Father Thalia Shereen Cancer Maternal Grandmother [place] Hinkle Clotting disorder Mother Elizabeth Regan Diabetes Mother Elizabeth Regan Heart disease Mother Elizabeth Regan Hypertension Mother Elizabeth Regan Kidney disease Mother Elizabeth Regan Obesity Mother Elizabeth Regan Stroke Mother Elizabeth Regan Cancer Mother's Brother 1 Gene Hinkle Cancer Mother's Brother 2 Teodoro Hinkle Heart attack Mother's Brother 3 Orlando Hinkle Heart disease Mother's Brother 3 Orlando Hinkle Heart disease Mother's Sister Karly Zamanly COPD Sister 1 Kacey Ranjan Cancer Sister 1 Kacey Woodruff Clotting disorder Sister 1 Kacey Ranjan Diabetes Sister 1 Kacey Ranjan Cancer Sister 2 Gaye Simran Teodoro- Begum Heart disease Sister 2 Gaye Simran Teodoro- Begum COPD Sister 3 Rozina Dawna Naveed Heart disease Sister 3 Rozian Dawna Naveed COPD Sister 4 Rozina Dawna Naveed Heart disease Sister 4 Rozina Dawna Naveed Relation Name Status Comments Brother 1 Corey Carter (Age 75) Brother 2 Jesus Manuel Regan (Age 63) Daughter Jeanette Gutierrez Father Thalia Regan (Age 54) Maternal Grandmother Kaye Hinkle Mother Elizabeth Regan (Age 73) Mother's Brother 1 Gene Hinkle Alive Mother's Brother 2 Teodoro Hinkel Alive Mother's Brother 3 Orlando Hinkle Alive Mother's Sister Karly Del Castillogerly Alive Sister 1 Kacey Ranjan Sister 2 Gaye Simran Teodoro- Begum Sister 3 Rozina Dawna Naveed Sister 4 Rozina Toney Naveed Alive Social History Tobacco Use Types Packs/Day Years [...] How often do you attend chur or zoroastrian services? Never 01/29/2021 Do you belong to any clubs o r organizations such as yarsanism groups, unions, fraternal or athletic groups, or [...] place to sleep or slept in a usp (including now)? No 01/29/2021 Comments No Sex and Gender Information Value Date Recorded Sex Assigned at Not on file Legal Sex Female 4:56 AM TEST ENGINEERING INTERN Gender Identity Female 04/16/2020 9:15 AM CDT Sexual Orientation Straight 04/16/2020 9: 15 AM CDT Obstetrics History Last Filed Vital Signs Vital Sign Reading Time Taken Comments Blood Pressure 124/74 05/03/2025 10:19 AM CDT Pulse 73 05/03/2025 10:19 AM CDT Temperature 37 C (98.6 F) 05/05/2022 10:59 AM CDT Respiratory Rate 29 01/02/2022 10:40 AM CDT Oxygen Saturation 96% 05/03/2025 10:19 AM CDT Inhaled Oxygen Concentration - - Weight 106.6 kg (235 lb) 05/03/2025 10:19 AM CDT Height 165.1 cm (5' 5) 05/03/2025 10:19 AM CDT Body Mass Index 39.11 05/03/2025 10:19 AM CDT Plan of Treatment Health Maintenance [...] 04/08, 11/20/2021, Additional history exists Covid-19 Vaccine (2024-10 6 season) 2025 06/04/2021, 12/03/2020, 11/12/2020 Influenza Vaccine (#1) 2025 , 05/31/2020, 05/27/2020, Additional history exists Lipid Panel 10/25/2025 10/25/2024, 06/0 01/2024, 06/24/2023, Additional history exists Zoster Vaccine Completed 07/13/2019, 03/08, 05/26/2013 Pneumococcal vaccine 65+ Completed 022, 06/02/2020, 05/07/2010, Additional history exists Medical Devices Implanted Type Area Pairer Device Identifier Shelf Expiration Date Model / Serial / Lot Farideh Craniomaxillof acial [id number] Duramatrix-Onl ay Plus 7x5in Regeneration Membrane Patch Dural - S000 - [id number] Implanted:Qty: 1 on 01/26/2021 by Zak Robison MD at [facility] Graft Right: Cranial [place] Craniomaxillofaci al [id number] 07/07/2023 [id number] / 000 / [id number] Other - See Comments Other - see comments Hip Description:Right hip replac ement 2017 NeuralStem [id number] Occluder Cardiovascular 20mm Dlv Sys Watchman Flx Strl - [id number] - [id number] Implanted:Qty: 1 on 11/19/2021 by Rajiv Bazan MD PhD at [facility] Other - see comments NeuralStem 10/17/2023 [id number] / [id number] / [id number] Description:Watchman karen [place] Craniomaxillof acial [id number] [place] Neuro Iii 20mm Low Profile Tab Cover [place] - S000 - [id number] Implanted:Qty: 6 on 01/26/2021 by Zak Robison MD at [facility] Plate Right: Cranial Farideh Craniomaxillofaci al [id number] / 000 / 000 Farideh Craniomaxillof acial [id number] [place] Neuro 3 1.5mm 4mm Self Drill Axial Stability Screw Bone Latex Free - S000 - [id number] Implanted:Qty: 24 on 01/26/2021 by Zak Robison MD at [facility] Screw Right: Cranial Farideh Craniomaxillofaci al [id number] / 000 / 000 Watchman N/A: Heart Device Karen Watchman Procedure - [id number] Implanted:Qty: 1 on 11/20/2021 by Rajiv Bazan MD PhD at [facility] NeuralStem [id number] VICE 1-3 PC / / Procedures Procedure Name Priority Date/Time Associated Diagnosis Comments TRANSTHORACIC ECHO (TTE) COMPLETE W DOPPLER/CF WO CONTRAST Routine 05/12/2025 1:41 PM CDT Chest heaviness Chronic systolic (congestive) heart failure (HCC) NM MPI SPECT (REST AND/OR STRESS) MULTIPLE STUDIES Schedule Routine, Read Routine (OP Routine) 05/12/2025 12:14 PM CDT Chest heaviness LIPID PANEL Routine 10/25/2024 5:53 PM TEST ENGINEERING INTERN COMPREHENSIVE METABOLIC PANEL Routine 06/06/2022 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 current use of amiodarone POCT HEMOGLOBIN A1C Routine 11/06/2021 3 :48 PM TEST ENGINEERING INTERN from Last 3 Months or Most Recently Relevant to Health Maintenance Results * TRANSTHORACIC ECHO (TTE) COMPLETE W DOPPLER/CF WO CONTRAST (05/12/2025 1:41 PM CDT) Estimated EF 35-40 % CONS SCIMAGE EF Mod BP 46 % CONS SCIMAGE Anatomical Region Laterality Modality Ultrasound 05/12/2025 12:4 0 PM CDT Narrative 05/12/2025 4:13 PM CDT [facility] Cardiology [address] [facility], [address], [place] [address] P:[phone] P:[phone] Echocardiographic Report Patient Name: KARLY JON C : 1955 Study Date: 05/12/2025 12:40:42 PM Sex: F Testing Projects Administrator: DURAN Location: [facility] Ref Provider: VINOD COLLIER Height(Cm): 165 BSA: 2.21 Weight(Kg): 106.6 Heart Rate: 69 BP: 124 / 74 Quality: Good Order Provider: VINOD COLLIER PROCEDURES: Echocardiographic Report: Transthoracic echocardiogram with complete 2D, M-Mode, and color Doppler examination. With Strain Analysis. INDICATIONS: R07.89 Other chest pain and I50.22 Chronic systolic (congestive) heart failure. MEASUREMENTS: 2D/MM Value Range Doppler Value Range EF Mod BP 46 % [ 54 - 74 ] NICOLETTE Vmax 2.39 cm2 [ 2.00 - 4.00 ] EF Teich MM 47 % [ 54 - 74 ] AV Mean PG 4 mmHg Estimated EF 35-40 % AV Peak Julien 1.38 m/s [ 1.00 - 1.70 ] LV GLS -13.24 % AV Peak PG 8 mmHg LVIDd 2D 6.04 cm [ 3.80 - 5.20 ] AV VTI 25.21 cm LVIDd MM 7.21 cm [ 3.80 - 5.20 ] LVOT Diam 2.04 cm [ 1.70 - 2.10 ] LVIDs 2D 4.93 cm [ 2.20 - 3.50 ] LVOT Peak Julien 1.01 m/s [ 0.70 - 1.10 ] LVIDs MM 5.47 cm [ 2.20 - 3.50 ] LVOT VTI 21.32 cm LVPWd 2D 1.00 cm [ 0.60 - 0.90 ] MV E Peak Julien 0.48 m/s [ 0.60 - 1.30 ] LVPWd MM 0.87 cm [ 0.60 - 0.90 ] MV A Peak Julien 0.74 m/s [ 1.00 - 1.20 ] IVSd 2D 1.22 cm [ 0.60 - 0.90 ] MV Decel Time 193 msec [ 104 - 258 ] IVSd MM 0.99 cm [ 0.60 - 0.90 ] PV Peak Julien 1.00 m/s [ 0.40 - 0.80 ] LA Dimension MM 4.84 cm [ 2.70 - 3.80 ] RVSP 15.00 mmHg [ 10.00 - 36.00 ] AoR Diam MM 3.69 cm [ 2.70 - 3.70 ] RV S` 0.14 m/s LA Volume 43.70 ml [ 22.00 - 52.00 ] Lateral E` 0.06 m/s [ 0.10 - 0.15 ] LA Volume Index 20 cc/m2 [ 16 - 28 ] Septal E` 0.03 m/s [ 0.08 - 0.15 ] RA Volume 38.51 ml E` 0.05 m/s E/E` 11 Tapse 2.21 cm [ 1.71 - 5.00 ] 2D/MM Value Range Doppler Value Range - FINDINGS: Interpretation Site: Exam was interpreted at [facility]. Left Ventricle: Mild concentric left ventricular hypertrophy. Moderate enlargement of left ventricle cavity. Moderate global left ventricular systolic dysfunction. Impaired diastolic relaxation Grade I. Ejection fraction is measured at 46 %. Ejection Fraction is visually estimated to be 35-40 %. Global Longitudinal Strain is -13 %. GLS is abnormal. Right Ventricle: Normal right ventricular size. Normal right ventricular systolic function. Left Atrium: There is mild enlargement of left atrium. Right Atrium: The right atrium is normal in size. Atrial Septum: Aneurysmal atrial septum. Mitral Valve: Normal appearance of the mitral valve. Mild mitral valve regurgitation. There is no hemodynamically significant mitral stenosis by Doppler. Aortic Valve: No evidence of hemodynamically significant aortic stenosis by Doppler. Aortic cusps appear mildly sclerotic. Trileaflet aortic valve. Trace aortic valve regurgitation. Tricuspid Valve: Normal appearance of the tricuspid valve. Normal right ventricular systolic pressure. Estimated peak RVSP is 15 mmHg. Mild tricuspid regurgitation. Pulmonic Valve: Normal appearance of the pulmonic valve. No pulmonic stenosis. Trivial regurgitation in the pulmonic valve. Pericardium: Normal pericardium with no significant pericardial effusion. Aorta: Normal aortic root. IVC: Normal size and normal respiratory collapse consistent with normal right atrial pressure (<5 mmHg). CONCLUSIONS: Mild concentric left ventricular hypertrophy. Moderate enlargement of left ventricle cavity. Moderate global left ventricular systolic dysfunction. Impaired diastolic relaxation Grade I. Ejection fraction is measured at 46 %. Ejection Fraction is visually estimated to be 35-40 %. Global Longitudinal Strain is -13 %. GLS is abnormal. There is mild enlargement of left atrium. Mild mitral valve regurgitation. Mild tricuspid regurgitation. Normal sinus rhythm. Electronically Signed By: Vinod Collier MD 05/12/2025 4:12:37 PM CDT Procedure Note Vinod Collier MD - 05/12/2025 [facility] Cardiology [address], [address], [place] [id number] P:[phone] P:[phone] Echocardiographic Report Patient Name: KARLY JON C : 1955 Study Date: 05/12/2025 12:40:42 PM Sex: F Testing Projects Administrator: DURAN Location: [facility] Ref Provider: VINOD COLLIER Height(Cm): 165 BSA: 2.21 Weight(Kg): 106.6 Heart Rate: 69 BP: 124 / 74 Quality: Good Order Provider: VINOD COLLIER PROCEDURES: Echocardiographic Report: Transthoracic echocardiogram with complete 2D, M-Mode, and color Dopplerexamination. With Strain Analysis. INDICATIONS: R07.89 Other chest pain and I50.22 Chronic systolic (congestive) heartfailure. MEASUREMENTS: 2D/MM Value Range Doppler ValueRange EF Mod BP 46 % [ 54 - 74 ] NICOLETTE Vmax 2.39cm2 [ 2.00 - 4.00 ] EF Teich MM 47 % [ 54 - 74 ] AV Mean PG 4mmHg Estimated EF 35-40 % AV Peak Julien 1.38m/s [ 1.00 - 1.70 ] LV GLS -13.24 % AV Peak PG 8mmHg LVIDd 2D 6.04 cm [ 3.80 - 5.20 ] AV VTI 25.21cm LVIDd MM 7.21 cm [ 3.80 - 5.20 ] LVOT Diam 2.04cm [ 1.70 - 2.10 ] LVIDs 2D 4.93 cm [ 2.20 - 3.50 ] LVOT Peak Julien 1.01m/s [ 0.70 - 1.10 ] LVIDs MM 5.47 cm [ 2.20 - 3.50 ] LVOT VTI 21.32cm LVPWd 2D 1.00 cm [ 0.60 - 0.90 ] MV E Peak Julien 0.48m/s [ 0.60 - 1.30 ] LVPWd MM 0.87 cm [ 0.60 - 0.90 ] MV A Peak Julien 0.74m/s [ 1.00 - 1.20 ] IVSd 2D 1.22 cm [ 0.60 - 0.90 ] MV Decel Time 193msec [ 104 - 258 ] IVSd MM 0.99 cm [ 0.60 - 0.90 ] PV Peak Julien 1.00m/s [ 0.40 - 0.80 ] LA Dimension MM 4.84 cm [ 2.70 - 3.80 ] RVSP 15.00mmHg [ 10.00 - 36.00 ] AoR Diam MM 3.69 cm [ 2.70 - 3.70 ] RV S` 0.14m/s LA Volume 43.70 ml [ 22.00 - 52.00 ] Lateral E` 0.06m/s [ 0.10 - 0.15 ] LA Volume Index 20 cc/m2 [ 16 - 28 ] Septal E` 0.03m/s [ 0.08 - 0.15 ] RA Volume 38.51 ml E` 0.05m/s E/E` 11 Tapse 2.21 cm [ 1.71 - 5.00 ] 2D/MM Value Range Doppler ValueRange - FINDINGS: Interpretation Site: Exam was interpreted at [facility]. Left Ventricle: Mild concentric left ventricular hypertrophy. Moderate enlargement of leftventricle cavity. Moderate global left ventricular systolic dysfunction. Impaireddiastolic relaxation Grade I. Ejection fraction is measured at 46 %. EjectionFraction is visually estimated to be 35-40 %. Global Longitudinal Strain is -13 %. GLS isabnormal. Right Ventricle: Normal right ventricular size. Normal right ventricular systolicfunction. Left Atrium: There is mild enlargement of left atrium. Right Atrium: The right atrium is normal in size. Atrial Septum: Aneurysmal atrial septum. Mitral Valve: Normal appearance of the mitral valve. Mild mitral valve regurgitation.There is no hemodynamically significant mitral stenosis by Doppler. Aortic Valve: No evidence of hemodynamically significant aortic stenosis by Doppler.Aortic cusps appear mildly sclerotic. Trileaflet aortic valve. Trace aortic valveregurgitation. Tricuspid Valve: Normal appearance of the tricuspid valve. Normal right ventricularsystolic pressure. Estimated peak RVSP is 15 mmHg. Mild tricuspid regurgitation. Pulmonic Valve: Normal appearance of the pulmonic valve. No pulmonic stenosis. Trivialregurgitation in the pulmonic valve. Pericardium: Normal pericardium with no significant pericardial effusion. Aorta: Normal aortic root. IVC: Normal size and normal respiratory collapse consistent with normal rightatrial pressure (<5 mmHg). CONCLUSIONS: Mild concentric left ventricular hypertrophy. Moderate enlargement of leftventricle cavity. Moderate global left ventricular systolic dysfunction. Impaireddiastolic relaxation Grade I. Ejection fraction is measured at 46 %. EjectionFraction is visually estimated to be 35-40 %. Global Longitudinal Strain is -13 %. GLS isabnormal. There is mild enlargement of left atrium. Mild mitral valve regurgitation. Mild tricuspid regurgitation. Normal sinus rhythm. Electronically Signed By: Vinod Collier MD 05/12/2025 4:12:37 PM CDT us Vinod Collier MD CV ECHO PROCEDURES Final Result * NM MPI SPECT (Rest and/or Stress) Multiple Studies (05/12/2025 12:14 PM CDT) Anatomical Region Laterality Modality Body N/A Electrocardiogra phy 05/12/2025 10:1 5 AM CDT Narrative 05/12/2025 3:54 PM CDT [facility] Cardiology [address] [facility] [address] [address] [address] [address] [facility] [address] [place] [address], [place] [address] [address] [place] [address] P:[phone] P:[phone] MPI Imaging Report Patient Name: KARLY JON C : 1955 Study Date: 05/12/2025 10:15:00 AM Sex: F Tech: KAREN HIGH Location: [facility] Provider: VINOD COLLIER Height(Cm): 165.1 BSA: Weight(Kg): 106.6 BMI: 39.11 Order Provider: VINOD COLLIER PHYSICIAN: Primary Care Physician: Dr. Song. [facility] Physician: Felix Collier M.D. Stress Supervision: Felix Collier M.D. Stress Interpreting Physician: Felix Collier M.D. Image Interpreting Physician: Felix Collier M.D. PROCEDURES: Pharmacologic SPECT Report: Myocardial perfusion imaging with Tc99M Sestamibi SPECT at rest and stress post regadenoson (Lexiscan) infusion. INDICATIONS: Hypertension, Shortness Of Breath, Diabetes, Family Hx CAD, High Cholesterol, Former Smoker, and R07.89 Other chest pain. FINDINGS: Procedural Findings: One day rest/stress was used. Tc99m Sestamibi injected IV at rest was 12.9 millicuries 37.7 millicuries of Tc99M Sestamibi injected IV during Lexiscan stress Lexiscan 0.4mg administered IV over 10 seconds. Patient had no symptoms during stress test. Baseline heart rate was 68 BPM Maximum Heart Rate Achieved was: 86 BPM Baseline blood pressure was 109/77 mmHg Post Stress Blood Pressure was 132/79 mmHg Termination: Protocol complete. Resting ECG: Normal sinus rhythm, left axis deviation. Cannot r/o anteroseptal infarct - age uncertain. Post ECG: No diagnostic ST changes. Arrhythmia: Occasional PVCs. Perfusion Findings: Abnormal perfusion imaging - see below. Technical quality of study is excellent. Left ventricle cavity size at rest is mildly enlarged. Left ventricle cavity size with stress is unchanged. A TID of 1.05 was automatically calculated. defect 1: Size is medium. Severity is moderate. Location of defect is in the basal anterolateral segment, mid anterolateral segment, apical inferior segment, apical lateral segment and apex. Reversibility is not present, defect is fixed. Type of defect is infarction. LV Function: Left ventricular ejection fraction is 35 %. There is moderate to severe LV dysfunction. PostStress LV Wall Motion: There is hypokinesis in the apical segment is more pronounced. CONCLUSIONS: Left ventricular ejection fraction is 35 %. There is moderate to severe LV dysfunction. There is hypokinesis in the apical segment is more pronounced. Size is medium. Severity is moderate. Location of defect is in the basal anterolateral segment, mid anterolateral segment, apical inferior segment, apical lateral segment and apex. Reversibility is not present, defect is fixed. Type of defect is infarction. Myocardial perfusion imaging is abnormal. Negative EKG portion of stress test. Attenuation correction utilized for the interpretation of this study. Electronically Signed By: Vinod Collier MD 05/12/2025 3:54:00 PM CDT Electronically Signed By: Vinod Collier MD 05/12/2025 3:54:00 PM CDT Procedure Note Vinod Collier MD - 05/12/2025 [facility] Cardiology [address] [facility] [address] [address], [place] [address] [address] [facility] [address], [place], [place] [address] [address] [place] [address] P:[phone] P:[phone] MPI Imaging Report Patient Name: KARLY JON C : 1955 Study Date: 05/12/2025 10:15:00 AM Sex: F Tech: [facility] Location: [facility] Provider: VINOD COLLIER Height(Cm): 165.1 BSA: Weight(Kg): 106.6 BMI: 39.11 Order Provider: VINOD COLLIER PHYSICIAN: Primary Care Physician: Dr. Song. [facility] Physician: Felix Collier M.D.Stress Supervision: Felix Collier M.D. Stress Interpreting Physician: De Flores Image Interpreting Physician: Felix Collier M.D. PROCEDURES: Pharmacologic SPECT Report: Myocardial perfusion imaging with Tc99M Sestamibi SPECT at rest and stresspost regadenoson (Lexiscan) infusion. INDICATIONS: Hypertension, Shortness Of Breath, Diabetes, Family Hx CAD, HighCholesterol, Former Smoker, and R07.89 Other chest pain. FINDINGS: Procedural Findings: One day rest/stress was used. Tc99m Sestamibi injected IV at rest was 12.9 millicuries 37.7 millicuries of Tc99M Sestamibi injected IV during Lexiscan stress Lexiscan 0.4mg administered IV over 10 seconds. Patient had no symptoms during stress test. Baseline heart rate was 68 BPM Maximum Heart Rate Achieved was: 86 BPM Baseline blood pressure was 109/77 mmHg Post Stress Blood Pressure was 132/79 mmHg Termination: Protocol complete. Resting ECG: Normal sinus rhythm, left axis deviation. Cannot r/o anteroseptal infarct- age uncertain. Post ECG: No diagnostic ST changes. Arrhythmia: Occasional PVCs. Perfusion Findings: Abnormal perfusion imaging - see below. Technical quality of study isexcellent. Left ventricle cavity size at rest is mildly enlarged. Left ventricle cavitysize with stress is unchanged. A TID of 1.05 was automatically calculated. defect 1: Size is medium. Severity is moderate. Location of defect is in the basalanterolateral segment, mid anterolateral segment, apical inferior segment, apicallateral segment and apex. Reversibility is not present, defect is fixed. Type of defect isinfarction. LV Function: Left ventricular ejection fraction is 35 %. There is moderate to severe LVdysfunction. PostStress LV Wall Motion: There is hypokinesis in the apical segment is more pronounced. CONCLUSIONS: Left ventricular ejection fraction is 35 %. There is moderate to severe LVdysfunction. There is hypokinesis in the apical segment is more pronounced. Size is medium. Severity is moderate. Location of defect is in the basalanterolateral segment, mid anterolateral segment, apical inferior segment, apicallateral segment and apex. Reversibility is not present, defect is fixed. Type of defect isinfarction. Myocardial perfusion imaging is abnormal. Negative EKG portion of stress test. Attenuation correction utilized for the interpretation of this study. Electronically Signed By: Vinod Collier MD 05/12/2025 3:54:00 PM CDT Electronically Signed By: Vinod Collier MD 05/12/2025 3:54:00 PM CDT Vinod Collier MD IMG NM PROCEDURES Final R esult * Lipid panel (10/25/2024 5:53 PM TEST ENGINEERING INTERN) SCRIBED Cholesterol, Total 111 <200 EXTERNAL LAB [...] - N/A Units/L EXTERNAL LAB SCRIBED eGFR N/A N/A - N/A EXTERNAL LAB SCRIBED eGFR 81 < or = 60 EXTERNAL LAB Blood 06/06/2022 Vinod Collier MD LAB BLOOD ORDERABLES Edit ed Result - Final Performing Organization Address City/[facility]/ZIP Co de Phone Number EXTERNAL LAB * (ABNORMAL) POCT hemoglobin A1c (11/06/2021 3:48 PM TEST ENGINEERING INTERN) Hgb A1C, POC 6.7(H) 4.0 - 5.6 % [facility] Est Average Gluc POC 146 mg/dL [facility] Comment: The ADA recommends reporting an estimated Average Glucose (eAG) with all Hemoglobin A1c results using the equation derived from a study of 507 normal and diabetic adults. Minority populations were underrepresented and children were not included. (Diabetes Care 31:[id number], 2008). The eAG is not equivalent to a fasting glucose. Blood 11/06/2021 3:48 PM TEST ENGINEERING INTERN 11/06/2021 3:48 PM TEST ENGINEERING INTERN Rajiv Bazan MD PhD POINT OF CARE TEST ORDERAB LES Final Result Performing Organization Address [facility] Co de Phone Number [facility] [place] [address] from Last 3 Months or Most Recently Relevant to Health Maintenance Additional Health Concerns Infection Onset Date Last Indicated MDR gram neg/ESBL 04/22/2021 04/22/2021 Insurance MEDICARE FOR LIFE MEDICARE FOR LIFE MEDICARE [facility] Address: [facility] [id number] [place] [id number] FOR LIFE Advance Directives For more information, please contact: [phone] * Full Code (Latest Code Status on File) Date Activated Date Inactivated Comments 11/19/2021 6:44 PM 11/20/2021 4:46 PM * Full Code Date Activated Date Inactivated Comments 04/21/2021 6:06 AM 04/23/2021 5:55 PM * Full Code Date Activated Date Inactivated Comments 01/26/2021 5:52 AM 02/07/2021 8:57 PM Care Teams Senior Sales Operations Manager Relationship Specialty Start Date End Date Aba Song MD [address] [place] [address] PCP - General Emergency Medicine 03/15/20
--- OUTSIDE RECORDS SUMMARY | 2025-05-29 00:38 | XMS_ITS ---
Author Organization [facility] [address] Address [address] [place] [address] Care Team Providers Care Cardiovascular Tech Name Role Phone Aba Song MD Primary Care Provide r Active Problems Problem Noted Date Diagnosed Date Morbid (severe) obesity due to excess calories 0 01/27/2024 Body mass index 40.0-44.9, adult (CMS/HCC) 01/26 Chest heaviness 05/26/2022 Left leg swelling [...] mcg daily. Type 2 diabetes mellitus, wi [facility] long-term current use of insulin 04/23/2021 [...] (01/26/2021): Added automatically from request for surgery [id number] senior care current use of amiodarone 12/19/2020 Chronic anticoagulation 08/16/2020 Hyperlipidemia associated with type 2 diabetes m evertitus 08/16/2020 Assessment & Plan (11/19/2021 9:48 PM [...] Watchman via right femoral vein with 14 Croatian sheath. No evidence of bleeding or hematoma [...] watchman via right femoral vein with 14 Croatian sheath. No evidence of bleeding or hematoma [...] Automatic Entry Manual Entr y Fluoro Time 16.8 minutes 2 minutes 14.8 minutes Air kerma at the reference point (Ka,r) 995 mGy 1 0 mGy 985 mGy DLP 8,273 mGycm 8,273 mGycm 0 mGycm DAP 139.13 Gy-cm2 0 Gy-cm2 139.13 Gy-cm2
--- OUTSIDE RECORDS SUMMARY | 2025-05-29 00:38 | XMS_ITS | Clinical Summary ---
Author Organization [facility] Address [address] [place] [address] Care Team Providers Care Java Developer With Security Clearance Name Role Phone Unavailable Primary Care Provider [...] 2004 Dexa Scan (General) 2019 COVID-19 Vaccine ( - 2023-2 5 season) 2025 RSV Immunization or 60+ Years (1 - [...]
[2025-05-29 11:57] LABS: Hematocrit 39.4 % (37.0-47.0); Hemoglobin 12.9 g/dL (12.0-15.0); Immature Granulocyte Percent A 0.6 % (0-0.5); Lymphocytes Absolute Auto 1.59 K/mm3 (0.9-3.2); Mean Corpuscular HGB Conc 32.7 g/dl (32-36); Mean Corpuscular Hemoglobin 32.7 pg (26-34); Mean Corpuscular Volume 100.0 fl (80-100); Nucleated Red Blood Cells Absolute Auto 0.000 K/mm3 (0.0-0.012); Nucleated Red Blood Cells Perc 0.0 % (0.0-0.2); Platelet Count Result 168 k/mm3 (150-375); Red Blood Count 3.94 M/mm3 (4.2-5.4); White Blood Count 6.6 K/mm3 (4.5-10.0)
[2025-05-29 12:20] LABS: Anion Gap 10 mmol/L (4-12); Blood Urea Nitrogen 17 mg/dL (7-17); Calcium 8.9 mg/dL (8.4-10.2); Carbon Dioxide 24 mmol/L (22-30); Chloride 107 mmol/L (98-107); Estimated CRCL calculation 70 ml/min; Estimated Glomerular Filt Rate > 60; Glucose 123 mg/dL (65-110); Potassium 4.4 mmol/L (3.4-5.0); Sodium 141 mmol/L (137-145)
--- NOTE | 2025-05-29 12:40 | WPDHPUPDATE1 ---
History and Physical Update Update Date/Time: 05/29/25 12:40 History and Physical has been reviewed, including an updated exam of the patient. There are NO changes in the patient's condition. Risks, benefits, and alternatives have been discussed and questions answered. Patient agrees to proceed with procedure.
--- NOTE | 2025-05-29 12:41 | WPDMODSED ---
Moderate Sedation Note-Pt Data Patient Data Allergies Allergy/AdvReac Type Severity Reaction Status Date / Time latex Allergy Mild Rash Verified 05/26/25 13:06 lisinopril Allergy Unknown Hives Verified 05/26/25 13:03 adhesive AdvReac Intermediate peels off Verified 05/26/25 13:03 skin Home Medications ?Medication ?Instructions ?Recorded ?Confirmed ?Type furosemide 20 mg tablet (Lasix) 20 mg PO DAILY 05/07/20 05/29/25 History magnesium oxide 400 mg PO DAILY 05/15/20 05/29/25 History cranberry 500 mg capsule 500 mg PO DAILY 09/13/20 05/29/25 History multivitamin (One-A-Day Essential 1 tablet PO DAILY 12/06/20 05/29/25 History tablet) albuterol sulfate 90 mcg/actuation 1 inh inhalation QID PRN Shortness 10/03/22 05/26/25 History aerosol inhaler (ProAir HFA) Of Breath aspirin 325 mg tablet 325 mg PO DAILY 03/25/23 05/29/25 History lancets 28 gauge (FreeStyle #200 ea 03/25/23 05/10/25 Rx Lancets) lancing device #1 ea 03/25/23 05/10/25 Rx glucagon 3 mg/actuation nasal spray 3 mg intranasal ONCE #2 ea 11/03/23 05/26/25 Rx sacubitril 49 mg-valsartan 51 mg 1 tablet PO BID 02/11/24 05/29/25 History tablet (Entresto) docusate sodium 100 mg capsule 100 mg PO BID 05/17/24 05/29/25 History (Colace) pen needle, diabetic 29 gauge x #100 ea 05/17/24 05/10/25 Rx 1/2 (BD Ultra-Fine Original Pen Needle) ferrous sulfate 325 mg (65 mg 325 mg PO DAILY 90 days #90 tabs 06/13/24 05/29/25 Rx iron) tablet blood-glucose sensor (Dexcom G7 07/06/24 05/10/25 History Sensor device) blood-glucose,coffee urn attendant,cont 07/06/24 05/10/25 History (Dexcom G7 Dermatological Surgeon) atorvastatin 20 mg tablet 20 mg PO DAILY #90 tabs 08/22/24 05/29/25 Rx amiodarone 200 mg tablet 100 mg PO DAILY 11/08/24 05/29/25 History insulin glargine 100 unit/mL (3 65 unit (0.65 mL) subcut QAM 3 11/08/24 05/29/25 Rx mL) subcutaneous pen (Lantus months #60 mL Solostar U-100 Insulin) levothyroxine 112 mcg tablet 112 mcg PO DAILY #90 tabs 11/08/24 05/29/25 Rx metoprolol tartrate 25 mg tablet 12.5 mg PO BID 11/08/24 05/29/25 History fluticasone propionate 50 1 spray intranasal BID #48 grams 11/09/24 05/29/25 Rx mcg/actuation nasal spray,suspension (Flonase Allergy Relief) mecobalamin (vitamin B12) 1,000 1,000 mcg sublingual .COMPLEX 11/09/24 05/29/25 History mcg disintegrating tablet,sublingual pantoprazole 20 mg tablet,delayed 20 mg PO QAM #90 tabs 11/09/24 05/29/25 Rx release (Protonix) sertraline 25 mg tablet 25 mg PO DAILY #90 tabs 11/09/24 05/29/25 Rx metformin 500 mg tablet,extended 1,000 mg (2 x 500 mg) PO BID 90 02/20/25 05/29/25 Rx release 24 hr days #360 tabs semaglutide 2 mg/dose (8 mg/3 mL) 2 mg (0.75 mL) subcut WEEKLY 90 05/09/25 05/26/25 Rx subcutaneous pen injector days #9 mL gabapentin 100 mg capsule 100 mg PO TID 05/10/25 05/29/25 History icosapent ethyl 1 gram capsule 2 g (2 x 1 gram) PO BID 90 days 05/29/25 05/29/25 Rx (Vascepa) #360 caps Sedation/Anesthesia: No previous sedation/anesthesia problems (including family history). [facility] Past Medical History Medical History Low back pain Dysuria Hearing loss of right ear due to cerumen impaction RUQ abdominal pain GI bleed Symptomatic anemia Presence of Watchman left atrial appendage closure device Vitamin D deficiency Left thyroid nodule Treated with radioactive therapy Anemia Post-menopausal UTI (urinary tract infection) Urinary retention Subarachnoid hemorrhage Subdural hematoma Hypothyroidism (acquired) BMI 37.0-37.9, adult Type 2 diabetes mellitus Obstructive sleep apnea (~06/2020) She does not use a CPAP Atrial fibrillation status post cardioversion COPD (chronic obstructive pulmonary disease) Breast cancer CHF (congestive heart failure) Hyperlipidemia associated with type 2 diabetes mellitus Atrial fibrillation with rapid ventricular response H/O malignant neoplasm of breast Thyroid mass of unclear etiology Neuropathy H/O thyroid disease Obesity Hypertension Depression Arthritis Surgical History Surgical History Presence of right artificial hip joint H/O craniotomy Brain bleed Surgery to stop brain bleed. 01/26/21 Status post craniotomy S/P total hip arthroplasty H/O tubal ligation 06/1978 H/O lumpectomy right breast, 05/2009 History of hip replacement right, 05/2017 Family History Family History Father , 55 Type 2 diabetes mellitus with diabetic neuropathy, unspecified Family history of malignant neoplasm of stomach Alcoholic Diabetes mellitus Mother , 74 Type 2 diabetes mellitus with diabetic neuropathy, unspecified Family history of congestive heart failure Cataracts, bilateral Cerebrovascular accident Diabetes mellitus Sibling Congestive heart failure Depression Diabetes mellitus Sibling Brain tumor Diabetes mellitus type 2 with complications Blood clot in vein Diabetes mellitus Other Family history of alcoholism Family history of allergic disorder Family history of coronary artery disease Family history of malignant neoplasm Hypertension Obesity Social History Social History Social History: lives with her in a single-story home with a basement. Basement contains laundry. There is 1 large step to enter. The patient was totally independent in ADLs using a cane. 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 Patient was still active and driving. She enjoys reading and eFolder work. is retired [employer] and can assist 247. Patient is a former smoker who quit in 04/19/1992. Patient denies use of alcohol. She worked at [employer] but is now retired. She has 2 children. full code Caffeine- soda Smoking packs per day: 2 Smoking cigarettes per day: 40.0 Years smoked: 20 Smoking pack-years: 40.00 Smoking status: Former smoker Tobacco type: cigarettes Second hand tobacco smoke exposure: Yes Smoking end date: 02/06/92 Alcohol intake: never Substance use: never Substance use type: does not use Last use: 1992 Do You Feel Safe in your Home?: Yes Lack of Transportation: No Lack of Food: Never True Current Housing: I Have Housing Concerned About Future Housing: No Difficulty Paying Gas/Electric Bills: No Difficulty Paying for Meds: No Currently Unemployed: No Education: High School Diploma/GED Difficulty w/ Childcare or Family Care: No Living arrangements: with family Additional living arrangements comments: , Rajiv Occupation/Education: retired Gender identity (if verbalized by the patient): Female Sexual Orientation (if Verbalized by the Patient): Straight or Heterosexual Spiritual care concerns: No Mod Sed Physical Exam Physical Exam Pre Procedural Exam: Normal: Lungs, Heart Size and Heart Rate Hours since solid foods: 15 Hours since liquid intake: 15 Mallampati Classification: class II Internal Medicine - PN: Obj Da Vital Signs Vital Signs: Vital Signs - 24 hr 05/29/25 11:58 Temperature 36.4 C Pulse Rate 74 Respiratory Rate 18 Blood Pressure 135/76 Pulse Oximetry 96 Oxygen Delivery Room Air Labs 05/29/25 11:52 05/29/25 11:52 Labs: Laboratory Results - last 24 hr 05/29/25 11:52 WBC 6.6 RBC 3.94 L Hgb 12.9 Hct 39.4 MCV 100.0 MCH 32.7 MCHC 32.7 RDW 11.8 Plt Count 168 MPV 10.8 H Immature Gran % (Auto) 0.6 H Neut % (Auto) 64.7 Lymph % (Auto) 24.2 Victoria % (Auto) 7.3 Eos % (Auto) 2.7 Baso % (Auto) 0.5 Lymph # (Auto) 1.59 Victoria # (Auto) 0.5 Eos # (Auto) 0.2 Baso # (Auto) 0.0 Abs Immat Gran (auto) 0.04 H Absolute Neuts (auto) 4.2 Absolute Nucleated RBC 0.000 Nucleated RBC % 0.0 Sodium 141 Potassium 4.4 Chloride 107 Carbon Dioxide 24 Anion Gap 10 BUN 17 Creatinine 0.72 Estim Creat Clear Calc 70 Estimated GFR > 60 Glucose 123 H Calcium 8.9 ASA Classification/Sedation ASA Classification/Sedation ASA Class: III Emergent: No Risks: Risks, benefits and alternatives explained and patient/family accepted plan for sedation. Patient re-evaluated immediately prior to sedation.
--- NOTE | 2025-05-29 13:30 | WPDCARDPROC ---
Cardiac Cath Procedure Note Date of procedure:: 05/29/25 Performing physician:: CATHETERIZATION LABORATORY REPORT Procedure Date:05/29/2025 Referring Physician: Dr. Collier Anesthesia: 2mg Versed and 50mcg Fentanyl were ordered and given in my presence at 1248, procedure ended at 1327. Supervision of nurse, Nicole Mccormack monitored moderate sedation with 2mg Versed and 50mcg Fentanyl was provided for 39 minutes. Pre-op Diagnosis: Abnormal nuclear stress test Post-op Diagnosis: Abnormal nuclear stress test Procedure(s): Left heart catheterization with coronary angiography Percutaneous coronary intervention Intravascular ultrasound imaging Access Site: Right radial artery Brief History and Clinical Indications: 69-year-old woman with persistent atrial fibrillation status post Watchman implantation, diabetes, and hyperlipidemia has been experiencing significant chest pressure for which nuclear stress test was abnormal and a cardiac catheterization with possible PCI was recommended. All risks, benefits and alternatives to left heart catheterization with or without percutaneous coronary intervention was discussed at length with the patient. Risk of complications including but not limited to bleeding, infection, arrhythmia, stroke, worsening kidney function, blood loss, groin hematoma, limb loss, emergency coronary artery bypass grafting, and even were discussed with the patient and all questions were answered. The patient understood and wished to proceed. Time out called, patient name, date of , medical record number, allergies, procedure performed, identify Building Code Inspector, patient and staff member concurred with accurate data, procedure carried on. Findings: LEFT HEART CATHETERIZATION FINDINGS: 1. Left main: The left main coronary artery has 10% stenosis at its ostium and at the distal bifurcation. 2. Left anterior descending: The LAD gives off 6 diagonal branches. The proximal to mid LAD has a focal area of 80-90% stenosis. The remainder of the vessel and its branches have luminal irregularities. 3. Left circumflex: The left circumflex artery and the main marginal branches have mild luminal irregularities without any significant obstructive angiographic disease. 4. Right coronary artery: The RCA is a large dominant vessel with luminal irregularities. 5. Left ventricle: A. End-diastolic pressure 8 mmHg. B. LV gram deferred. C. No significant gradient across aortic valve on catheter pullback. 6. Opening AO pressure 107/68 and closing AO pressure 119/61 Description of Procedure: Informed consent signed and placed in the chart. Patient transferred to laborer egg producing farm room. Prepped and draped in usual sterile fashion. 2% lidocaine injected subcutaneously in right wrist area. 22-gauge venipuncture catheter used to access the right radial artery with the Seldinger technique. 6-FR slender sheath placed in right radial artery. Nitroglycerin 200mcg, Verapamil 2.5mg, and Heparin 5000U was given intraarterial through the sheath. J wire advanced under fluoroscopy. 5F Ultra diagnostic catheter crossed into the left ventricle and after pull back gradients obtained, was used to engaged Left Main Coronary Artery and Right Coronary Artery. Multiple orthogonal angiogram obtained and reviewed Procedure Description for PCI: Heparin was used for anticoagulation (ACT maintained above 250) Patient loaded with heparin at 70 units/kg. 6F EBU guide catheter was used to intubate the LMCA. 0.014 Runthrough coronary wire was passed in to the distal LAD. Intracoronary NTG was administered. The lesion was pre-dilated with a 3.0 x 10mm balloon inflated to nominal pressures. A 3.5 x 15mm [place] WILLIAM was successfully deployed into proximal to mid LAD; post dilated with a 4.0 x 8mm NC to nominal pressures with excellent angiographic and IVUS results. Coronary wire and guide-catheter were removed under fluoroscopy. Final angiograms demonstrated excellent results and no immediate complications. Pre-procedure - JASMINA 3 flow Post-procedure - JASMINA 3 flow TR band was used for hemostasis at end of procedure. Assessment: Successful IVUS guided PCI to the proximal-mid LAD with a 3.5 x 15mm [place] WILLIAM; post dilated with 4.0 x 8mm NC to nominal pressures with excellent angiographic and IVUS results. Post Operative Condition: Stable No significant blood loss Disposition: Home Plan: DAPT for a minimum of 6 months followed by ASA indefinitely. The above findings were discussed with the referring physician. Continue aggressive medical therapy and risk factor modification. Edgar Rey Interventional Cardiology
--- NOTE | 2025-05-29 14:20 | SUR.PHASEII ---
Meds to beds discussed w/ pt and family and they decided to opt out at this time. Stent card provided to pt and pt told to keep it with her at all times.
[2025-05-29] MEDS: SODIUM CHLORIDE 0.9% IV 1,000 ML 125 ML IV CONT (14:25)
--- NOTE | 2025-05-29 16:16 | SUR.PHASEII ---
Pt's daughter returned to bedside w/ plavix prescription in hand.
--- NOTE | 2025-05-29 17:52 | SUR.PHASEII ---
This RN contacted MD Rey to see if pt needs to take 75mg of plavix tonight or start tomorrow and MD Rey states to start tomorrow.
== END 2025-05-29 17:53 | disposition home or self-care (01) ==
PROVIDERS: PCP Emergency Medicine; Visit Provider Internal Medicine
PROC: 4A023N7 Measurement of Cardiac Sampling and Pressure, Left Heart, Percutaneous Approach (ICD-10-PCS; CPT 93452; principal; 2025-05-29 13:00)
DX: I25.10 Atherosclerotic heart disease of native coronary artery without angina pectoris (principal); I48.19 Other persistent atrial fibrillation; E78.5 Hyperlipidemia, unspecified; E55.9 Vitamin D deficiency, unspecified; D64.9 Anemia, unspecified; R33.9 Retention of urine, unspecified; E03.9 Hypothyroidism, unspecified; E11.9 Type 2 diabetes mellitus without complications; G47.33 Obstructive sleep apnea (adult) (pediatric); J44.9 Chronic obstructive pulmonary disease, unspecified; I11.0 Hypertensive heart disease with heart failure; I50.9 Heart failure, unspecified; F32.A Depression, unspecified; M19.90 Unspecified osteoarthritis, unspecified site; Z79.51 Long term (current) use of inhaled steroids; Z79.82 Long term (current) use of aspirin; Z79.4 Long term (current) use of insulin; Z79.84 Long term (current) use of oral hypoglycemic drugs; Z79.85 Long-term (current) use of injectable non-insulin antidiabetic drugs; Z98.890 Other specified postprocedural states; Z98.51 Tubal ligation status; Z95.818 Presence of other cardiac implants and grafts; Z87.891 Personal history of nicotine dependence; Z85.3 Personal history of malignant neoplasm of breast; Z80.0 Family history of malignant neoplasm of digestive organs; Z82.49 Family history of ischemic heart disease and other diseases of the circulatory system
CPT/HCPCS: 36415; 80048; 85025; 92978; 93458; A9270; C1725; C1753; C1769; C1874; C1887; C1894; C7532; C9600; J1644; J2003; J2250; J2305; J2371; J3010; J7030; J7040

== ENCOUNTER 2025-07-04 10:12 | Outpatient (CLI) | payer MEDICARE, OTHER, SELFPAY ==
--- OUTSIDE RECORDS SUMMARY | 2022-06-20 12:39 | XMS_ITS | Encounter Summary ---
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 current use of amiodarone Procedures Pulmonary Function Test -External Richard Collier MD [address] [facility] [address] [place] [address], [address] [address] Phone: tel: fax: Referral ID Status Reason Start Date Expiration Date Visits Re quested Visits Authorized [id number] Closed 05/26/2022 06/25/2023 1 1 Reason for Visit * Procedure (Routine) - Closed Specialty Diagnoses / Procedures Referred By Jolene heart Referred To Contact Diagnoses 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 card 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 current use of amiodarone Procedures Pulmonary Function Test -External Richard Collier MD [address] [facility] [address], [address] [address] Phone: tel: fax: Referral ID Status Reason Start Date Expiration Date Visits Re quested Visits Authorized [id number] Closed 05/26/2022 06/25/2023 1 1 Encounter Details Date Type Department Care Team (Latest Contact Info) Description 06/20/2022 12:39 PM CDT Hospital Encounter [facility] Medicine PFT Lab 10 [facility] [address] [place] [address] 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 card tender current use of amiodarone Social History Tobacco [...] often do you attend chur ch or restorationism services? Never 01/29/2021 Do you belong to any clubs o r organizations such as zoroastrianism groups, unions, fraternal or athletic groups, or [...] place to sleep or slept in a 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 (including now)? 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 Gender Identity Female 04/16/2020 9:15 AM CDT Sexual Orientation Straight 04/16/2020 9: 15 AM CDT documented as of this encounter Plan of Treatment Not on file documented as of this encounter Procedures Procedure Name Priority Date/Time Associated Diagnosis Comments PULMONARY FUNCTION TEST (PFT) Routine 06/20/2022 1:44 PM CDT 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 card tender current use of amiodarone documented in this encounter Results * Pulmonary Function Test - (06/20/2022 1:44 PM CDT) FVC PRE 2.90 L [facility] FVC %PRE PRED 100 % [facility] FEV1 PRE 2.45 L [facility] FEV1 %PRE PRED 108 % [facility] FEV1/FVC PRE 84.6 % [facility] FRC PL PRE 2.93 L [facility] FRC PL %PRE PRED 103 % [facility] RV PRE 2.35 L [facility] RV %PRE PRED 111 % [facility] TLC PRE 5.35 L [facility] TLC %PRE PRED 107 % [facility] DLCO PRE 14.5 ml/min/mmH g [facility] DLCO %PRE PRED 75 % [facility] Anatomical Region Laterality Modality PFT 06/20/2022 12:5 1 PM CDT Narrative 06/24/2022 7:45 AM CDT PFT performed at:->External us Richard Collier MD PFT ORDERABLES Final Res ult documented in this encounter Visit Diagnoses Diagnosis retirement current use of amiodarone documented in this encounter Additional Health Concerns Infection Onset Date Last Indicated Resolved Time MDR gram neg/ESBL 04/22/2021 04/22/2021 documented as of this encounter Care Teams Sous Chef Kitchen Manager Relationship Specialty Start Date End Date Aba Song MD [address] [place] [address] PCP - General Emergency Medicine 03/15/20 documented as of this encounter
[2025-07-04 11:12] LABS: MALB Creatinine Ratio 12.9 mg/g (0-30)
[2025-07-04 11:33] LABS: Hemoglobin A1C 5.6 % (<5.7)
--- OUTSIDE RECORDS SUMMARY | 2025-07-04 11:35 | XMS_ITS | Clinical Summary ---
Author Organization [facility] Address [address] [place] [address] Phone Care Team Providers Care Hydraulic Miner Name Role Phone Zen Cunningham MD Primary Care Provider [phone] Allergies Active Allergy Reactions Criticality Noted Date [...] tablet Take 112 mcg by mouth daily director business travel. Active metoprolol tartrate (LOPRESSOR) 50 mg tablet [...] - 1-dose 75+ series) 2029 Care Teams Hydraulic Miner Relationship Specialty Start Date End Date Zen Cunningham MD [address] [place] [phone] PCP - General Internal Medicine 05/27/17
--- OUTSIDE RECORDS SUMMARY | 2025-07-04 11:35 | XMS_ITS | Clinical Summary ---
Author Organization [facility] Address [address] [place] [address] Care Team Providers Care Client Technical Professional Name Role Phone Unavailable Primary Care Provider [...] Scan (General) 2019 COVID-19 Vaccine ( - 2024-2 6 season) 2025 Influenza Adult (#1) 2025 RSV Immunization or 60+ Years (1 - 1-dose 75+ series) 2029 Hepatitis A Vaccines Aged Out No long er eligible based on patient's age to complete this topic Meningococcal B Vaccine Aged Out No l onger eligible based on patient's age to complete this topic Meningococcal Vaccine Aged Out No alex lela eligible based on patient's age to complete this topic RSV Immunizations Under 20 Months Aged Out No longer eligible based on patient's age to complete this topic
--- OUTSIDE RECORDS SUMMARY | 2025-07-04 11:35 | XMS_ITS ---
Author Organization [facility] [address] Address [address] [place] [address] Care Team Providers Care Deputy Clerk Of Superior Court Name Role Phone Aba Song MD Primary [...] mcg daily. Type 2 diabetes mellitus, [place] [facility] long-term current use of insulin 04/23/2021 [...] (01/26/2021): Added automatically from request for surgery [id number] intermodal customer service current use of amiodarone 12/19/2020 Chronic anticoagulation [...] Watchman via right femoral vein with 14 Montenegrin sheath. No evidence of bleeding or hematoma [...] watchman via right femoral vein with 14 Montenegrin sheath. No evidence of bleeding or hematoma [...]
--- OUTSIDE RECORDS SUMMARY | 2025-07-04 11:35 | XMS_ITS | Encounter Summary ---
Author Organization [facility] Address [address] [place] [address] Care Team Providers Care In House Cra Name Role Phone Aba Song MD Primary Care Provide r Encounter Details Date Type Department Care Team (Late st Contact Info) Description 05/11/2019 Telephone [facility] Advanced Medicine Radiation Oncology [address] [facility] [place] [address] Jose Hendricks CMA Social History Tobacco Use Types Packs/Day Years Used Date Smoking Tobacco: Former Comments Unknown Sex and Gender Information Value Date Recorded Sex Assigned at Not on file Legal Sex Female 4:56 AM 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 DRYING 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
--- OUTSIDE RECORDS SUMMARY | 2025-07-04 11:35 | XMS_ITS | Encounter Summary ---
Author Organization [facility] Address [address] [place] [address] Care Team Providers Care Alteration Worker Name Role Phone Aba Song MD Primary Care Provide r Encounter Details Date Type Department Care Team (Late st Contact Info) Description 05/15/2025 Results Follow-Up [facility] Medical Group Cardiology [address] [facility] [address], [place] [address] Richard Collier MD [address] [facility] [address] [place] [address] [place] MPI SPECT (Rest and/or [...] often do you attend chur ch or latter day services? 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
--- OUTSIDE RECORDS SUMMARY | 2025-07-04 11:35 | XMS_ITS | Clinical Summary ---
Author Organization [facility] [address] Address [address] [place] [address] Care Team Providers Care Audio Production Manager Name Role Phone Aba Song MD [...] 0 01/27/2024 Body mass index 40.0-44.9, adult ([facility]) 01/26 Chest heaviness 05/26/2022 Left leg swelling [...] 112 mcg daily. Type 2 diabetes mellitus, [facility] long-term current use of insulin 04/23/2021 [...] (01/26/2021): Added automatically from request for surgery [id number] snf current use of amiodarone 12/19/2020 Chronic anticoagulation [...] Watchman via right femoral vein with 14 Surinamese sheath. No evidence of bleeding or hematoma [...] watchman via right femoral vein with 14 Surinamese sheath. No evidence of bleeding or hematoma [...] Type Department Care Team Description 05/16/2025 Telephone [facility] Cardiology at [address] [place] [address] Vinod Collier MD 05/15/2025 Results Follow-Up [facility] [address] [place] [address] [place], [place] [address] [address] Vinod Collier MD [place] MPI SPECT (Rest and/or Stress) Multiple Studies 05/12/2025 1:00 PM CDT Ancillary Procedure [facility] Cardiology at [address] [place] [address] Chest heaviness; Chronic systolic (congestive) heart failure (HCC) 05/12/2025 10:15 AM CDT Ancillary Procedure [facility] Cardiology at [address] [place] [phone] Chest heaviness 05/11/2025 Telephone [facility] Cardiology at [address] [place] [phone] Vinod Collier MD 05/03/2025 10:15 AM CDT Office Visit [facility] Cardiology [address] [facility] [address] [place] [phone] Vinod Collier MD Chest heaviness (Primary Dx); [...] Cancer (HCC) 04/2009 Depression 2000 Diabetes mellitus 1994 Hypertension 1994 Menstrual problem 1969 Hyperlipidemia [...] disorder Mother Elizabeth Shereen Diabetes Mother Elizabeth Regan Heart disease Mother [...] 1 Kacey Ranjan Cancer Sister 1 Kacey Ranjan Clotting disorder Sister 1 Kacey Ranjan Diabetes Sister 1 Kacey Ranjan Cancer Sister 2 Gaye Simran Teodoro- Begum Heart disease Sister 2 Gaye Simran Teodoro- Begum COPD Sister 3 Rozina Dawna Naveed Heart disease Sister 3 Rozina Dawna Naveed COPD Sister 4 Rozina Dawnalauren Lucio Heart disease Sister 4 Rozina Dawna Naveed Relation Name Status Comments Brother 1 Corey Carter (Age 75) Brother 2 Jesus Manuel Regan (Age 63) Daughter Jeanette Gutierrez Father Thalia Regan (Age 54) Maternal Grandmother Clifton Hinkle Mother Elizabeth Regan (Age 73) Mother's Brother 1 Gene Hinkle Alive Mother's Brother 2 Teodoro Hinkle Alive Mother's Brother 3 Orlando Hinkle Alive Mother's Sister Karly Zamanly Alive Sister 1 Kacey Ranjan Sister 2 Gaye Simran Teodoro- Begum Sister 3 Rozina Dawna Naveed Sister 4 Rozina Dawna Naveed Alive Social History Tobacco Use Types [...] How often do you attend chur or anabaptism services? Never 01/29/2021 Do you belong to [...] on file Legal Sex Female 4:56 AM DIRECTOR DERMATOLOGY Gender Identity Female 04/16/2020 9:15 AM CDT [...] 04/08, 11/20/2021, Additional history exists Covid-19 Vaccine (2024-2 6 season) 2025 06/04/2021, 12/03/2020, 11/12/2020 Influenza Vaccine (#1) 2025 , 05/31/2020, 05/27/2020, Additional history exists Lipid Panel 10/25/2025 10/25/2024, 06/0 01/2024, 06/24/2023, Additional history exists Zoster Vaccine Completed 07/13/2019, 03/08, 05/26/2013 Pneumococcal vaccine 65+ Completed 022, 06/02/2020, 05/07/2010, Additional history exists Medical Devices Implanted Type Area Territory Sales Manager Device Identifier Shelf Expiration Date Model / Serial / Lot Farideh Craniomaxillof acial [id number] Duramatrix-Onl ay Plus 7x5in Regeneration Membrane Patch Dural - S000 - [id number] Implanted:Qty: 1 on 01/26/2021 by Zak Robison MD at [facility] Graft Right: Cranial Magnolia Craniomaxillofaci al [id number] 07/07/2023 [id number] / 000 / [id number] Other - See Comments Other - see comments Hip Description:Right hip replac ement 2017 Vital[employer]ix [id number] Occluder Cardiovascular 20mm Dlv Sys Watchman Flx Strl - [id number] - [id number] Implanted:Qty: 1 on 11/19/2021 by Rajiv Bazan MD PhD at [facility] Other - see comments [employer] 10/17/2023 [id number] / [id number] / [id number] Description:Watchman karen [place]olia Craniomaxillof acial [id number] Neuro Iii 20mm Low Profile Tab Cover [place] Hole - S000 - [id number] Implanted:Qty: 6 on 01/26/2021 by Zak Robison MD at [facility] Plate Right: Cranial Magnolia Craniomaxillofaci al [id number] / 000 / 000 Magnolia Craniomaxillof acial [id number] Neuro 3 1.5mm 4mm Self Drill Axial Stability Screw Bone Latex Free - S000 - [id number] Implanted:Qty: 24 on 01/26/2021 by Zak Robison MD at [facility] Screw Right: Cranial Farideh Craniomaxillofaci al [id number] / 000 / 000 Watchman N/A: Heart Device Karen Watchman Procedure - [id number] Implanted:Qty: 1 on 11/20/2021 by Rajiv Bazan MD PhD at [facility] V[employer] [id number] VICE 1-3 PC / / Procedures Procedure Name Priority Date/Time Associated Diagnosis Comments TRANSTHORACIC ECHO (TTE) COMPLETE W DOPPLER/CF WO CONTRAST Routine 05/12/2025 1:41 PM CDT Chest heaviness Chronic systolic (congestive) heart failure (HCC) NM MPI SPECT (REST AND/OR STRESS) MULTIPLE STUDIES Schedule Routine, Read Routine (OP Routine) 05/12/2025 12:14 PM CDT Chest heaviness LIPID PANEL Routine 10/25/2024 5:53 PM DIRECTOR DERMATOLOGY COMPREHENSIVE METABOLIC PANEL Routine 06/06/2022 long term care pharmacist current use of amiodarone POCT HEMOGLOBIN A1C Routine 11/06/2021 3 :48 PM DIRECTOR DERMATOLOGY from Last 3 Months or Most Recently Relevant to Health Maintenance Results * TRANSTHORACIC ECHO (TTE) COMPLETE W DOPPLER/CF WO CONTRAST (05/12/2025 1:41 PM CDT) Estimated EF 35-40 % CONS SCIMAGE EF Mod BP 46 % CONS SCIMAGE Anatomical Region Laterality Modality Ultrasound 05/12/2025 12:4 0 PM CDT Narrative 05/12/2025 4:13 PM CDT [facility] Cardiology [address] [facility], [address], [place] [address] P:[phone] P:[phone] Echocardiographic Report Patient Name: KARLY JON C : 1955 Study Date: 05/12/2025 12:40:42 PM Sex: F Occupational Therapy Program Director: DURAN Location: [facility] Ref Provider: VINOD COLLIER [...] FINDINGS: Interpretation Site: Exam was interpreted at [facility]. Left Ventricle: Mild concentric left ventricular [...] Procedure Note Vinod Collier MD - 05/12/2025 [facility] Cardiology [address] , [address], [place] [address] P:[phone] P:[phone] Echocardiographic Report Patient Name: KARLY JON C : 1955 Study Date: 05/12/2025 12:40:42 PM Sex: F Occupational Therapy Program Director: DURAN Location: [facility] Ref Provider: VINOD COLLIER [...] FINDINGS: Interpretation Site: Exam was interpreted at [facility]. Left Ventricle: Mild concentric left ventricular [...] AM CDT Narrative 05/12/2025 3:54 PM CDT [facility] Cardiology [address] [facility] [address] [address], [place] [address] [address] [facility] [address], [place] [address] [address] [place] [address] P:[phone] P:[phone] MPI Imaging Report Patient Name: KARLY JON C : 1955 Study Date: 05/12/2025 10:15:00 AM Sex: F Tech: KAREN HIGH [facility] Provider: VINOD COLLIER Height(Cm): 165.1 BSA: Weight(Kg): 106.6 BMI: 39.11 Order Provider: VINOD COLLIER PHYSICIAN: Primary Care Physician: Dr. Song. [facility] Physician: Felix Collier M.D. Stress Supervision: Felix [...] Procedure Note Vinod Collier MD - 05/12/2025 [facility] Cardiology [address] [facility] [address] [address], [place] [address] [address] [facility] [address], [place], [place] [address] [address] [place] [address] P:[phone] P:[phone] MPI Imaging Report Patient Name: KARLY JON C : 1955 Study Date: 05/12/2025 10:15:00 AM Sex: F Tech: [facility] Provider: VINOD COLLIER Height(Cm): 165.1 BSA: Weight(Kg): 106.6 BMI: 39.11 Order Provider: VINOD COLLIER PHYSICIAN: Primary Care Physician: Dr. Song. [facility] Physician: Felix Collier M.D.Stress Supervision: Felix Collier [...] esult * Lipid panel (10/25/2024 5:53 PM DIRECTOR DERMATOLOGY) Pathologist [facility] SCRIBED Cholesterol, Total 111 <200 EXTERNAL LAB SCRIBED HDL 48 >40 EXTERNAL LAB SCRIBED LDL 39 <100 EXTERNAL LAB SCRIBED Triglycerides 124 <150 EXTERNAL LAB Blood Historical Provider LAB BLOOD ORDERABLES Edit ed Result - Final EXTERNAL LAB * (ABNORMAL) Comprehensive metabolic panel (06/06/2022) Pathologist [facility] SCRIBED Sodium 145 136 - 145 mmol/L [...] (ABNORMAL) POCT hemoglobin A1c (11/06/2021 3:48 PM DIRECTOR DERMATOLOGY) Hgb A1C, POC 6.7(H) 4.0 - 5.6 % [facility] Est Average Gluc POC 146 mg/dL [facility] Comment: The ADA recommends reporting an estimated Average Glucose (eAG) with all Hemoglobin A1c results using the equation derived from a study of 507 normal and diabetic adults. Minority populations were underrepresented and children were not included. (Diabetes Care 31:6558-2772, 2008). The eAG is not equivalent to a fasting glucose. Blood 11/06/2021 3:48 PM DIRECTOR DERMATOLOGY 11/06/2021 3:48 PM DIRECTOR DERMATOLOGY Rajiv Bazan MD PhD POINT OF CARE TEST ORDERAB LES Final Result Performing Organization Address [facility] Co de Phone Number [facility] Department [place] [address] from Last 3 Months or Most Recently Relevant to Health Maintenance Additional Health Concerns Infection Onset Date Last Indicated MDR gram neg/ESBL 04/22/2021 04/22/2021 Insurance MEDICARE FOR LIFE MEDICARE FOR LIFE MEDICARE FOR LIFE Advance Directives For more information, please contact: [phone] * Full Code (Latest Code Status on File) Date Activated Date Inactivated Comments 11/19/2021 6:44 PM 11/20/2021 4:46 PM * Full Code Date Activated Date Inactivated Comments 04/21/2021 6:06 AM 04/23/2021 5:55 PM * Full Code Date Activated Date Inactivated Comments 01/26/2021 5:52 AM 02/07/2021 8:57 PM Care Teams Audio Production Manager Relationship Specialty Start Date End Date Aba Song MD [address] [place] [address] PCP - General Emergency Medicine 03/15/20
[2025-07-04 11:40] LABS: Alanine Aminotransferase 16 U/L (6-35); Albumin Level 4.0 g/dL (3.5-5.1); Alkaline Phosphatase 51 U/L (38-126); Anion Gap 8 mmol/L (4-12); Aspartate Amino Transferase 20 U/L (14-36); Bilirubin,Total 0.7 mg/dL (0.2-1.3); Blood Urea Nitrogen 16 mg/dL (7-17); Calcium 8.5 mg/dL (8.4-10.2); Carbon Dioxide 26 mmol/L (22-30); Chloride 107 mmol/L (98-107); Cholesterol 115 mg/dL (0-200); Estimated Glomerular Filt Rate > 60; Glucose 149 mg/dL (65-110); HDL Direct 44 mg/dL; Potassium 3.9 mmol/L (3.4-5.0); Sodium 141 mmol/L (137-145); Total Protein 7.0 g/dL (6.3-8.2); Triglycerides 168 mg/dL (<150)
== END 2025-07-04 10:13 | disposition home or self-care (01) ==
PROVIDERS: PCP Emergency Medicine; Visit Provider Emergency Medicine
DX: E78.5 Hyperlipidemia, unspecified (principal); E11.9 Type 2 diabetes mellitus without complications; E55.9 Vitamin D deficiency, unspecified
CPT/HCPCS: 36415; 80053; 80061; 82043; 82306; 83036

== ENCOUNTER 2025-07-12 11:05 | Outpatient (CLI) | payer MEDICARE, OTHER, SELFPAY ==
--- OUTSIDE RECORDS SUMMARY | 2022-06-20 11:39 | XMS_ITS | Encounter Summary ---
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 Procedures Pulmonary Function Test -External Richard Collier MD [address] [facility] [address] [place] [address], [address] [address] Phone: tel: fax: Referral ID Status Reason Start Date Expiration Date Visits Re quested Visits Authorized [id number] Closed 05/26/2022 06/25/2023 1 1 Reason for Visit * Procedure (Routine) - Closed Specialty Diagnoses / Procedures Referred By Jolene heart Referred To Contact Diagnoses 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 Procedures Pulmonary Function Test -External Richard Collier MD [address] [facility] [address], [address] [address] Phone: tel: fax: Referral ID Status Reason Start Date Expiration Date Visits Re quested Visits Authorized [id number] Closed 05/26/2022 06/25/2023 1 1 Encounter Details Date Type Department Care Team (Latest Contact Info) Description 06/20/2022 12:39 PM CDT Hospital Encounter [facility] Medicine PFT Lab 10 [facility] Office Building [address] [place] [address] 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 More than three times a week 01/29/2021 How often do you get togethe r with friends or relatives? More than three times a week 01/29/2021 How often do you attend chur ch or confucianism services? Never 01/29/2021 Do you belong to any clubs o r organizations such as caodaism groups, unions, fraternal or athletic groups, or school groups? No 01/29/2021 How often do you attend meet ings of the clubs or organizations you belong to? Never 01/29/2021 Are you , , di vorced, , never , or living with a partner? 01/29/2021 AUDIT-C Answer Date Recorded Q1: How often do you have a drink containing alc ohol? Never 11/19/2021 Average Number of Drinks Not on file 022 Q3: How often do you have si x or more drinks on one occasion? Never 11/19/2021 Overall Financial Resource Strain (CARDIA) Answe r Date Recorded How hard is it for you to pa y for the very basics like food, housing, medical care, and heating? Not hard at all 01/29/2021 PHQ-2 Answer Date Recorded PHQ-2 Total Score (If total score is 3 or more points, staff should administer the PHQ-9) 0 04/21/2021 PRAPARE - Transportation Answer Date Re corded In the past 12 months, has l ack of transportation kept you from medical appointments or from getting medications? No 01/06 In the past 12 months, has l ack of transportation kept you from meetings, work, or from getting things needed for daily living? No 01/29/2021 Housing Stability Vital Sign Answer Johnnie e Recorded In the last 12 months, was t here a time when you were not able to pay the mortgage or rent on time? No 01/29/2021 In the last 12 months, how many places have you lived? 1 01/29/2021 In the last 12 months, was t here a time when you did not have a steady place to sleep or slept in a alf (including now)? 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 documented in this encounter Results * Pulmonary Function Test - (06/20/2022 1:44 PM CDT) FVC PRE 2.90 L [facility] FVC %PRE PRED 100 % [facility] FEV1 PRE 2.45 L [facility] FEV1 %PRE PRED 108 % [facility] FEV1/FVC PRE 84.6 % [facility] FRC PL PRE 2.93 L [facility] FRC PL %PRE PRED 103 % [facility] RV PRE 2.35 L [facility] RV %PRE PRED 111 % [facility] TLC PRE 5.35 L [facility] TLC %PRE PRED 107 % [facility] DLCO PRE 14.5 ml/min/mmH g [facility] DLCO %PRE PRED 75 % [facility] Anatomical Region Laterality Modality PFT 06/20/2022 12:5 1 PM CDT Narrative 06/24/2022 7:45 AM CDT PFT performed at:->External us Richard Collier MD PFT ORDERABLES Final Res ult documented in this encounter Visit Diagnoses Diagnosis shelter current use of amiodarone documented in this encounter Additional Health Concerns Infection Onset Date Last Indicated Resolved Time MDR gram neg/ESBL 04/22/2021 04/22/2021 documented as of this encounter Care Teams Hris Manager Relationship Specialty Start Date End Date Aba Song MD [address] [place] [address] PCP - General Emergency Medicine 03/15/20 documented as of this encounter
[2025-07-12 14:24] LABS: Thyroid Stimulating Hormone 1.580 uIU/mL (0.465-4.680)
[2025-07-12 19:24] LABS: Free T4 Free Thyroxine 2.16 ng/dL (0.78-2.19)
--- OUTSIDE RECORDS SUMMARY | 2025-07-13 10:46 | XMS_ITS | Clinical Summary ---
Author Organization [facility] Address [address] [place] [id number] Care Team Providers Care Filing Clerk Name Role Phone Unavailable Primary Care Provider [...]
--- OUTSIDE RECORDS SUMMARY | 2025-07-13 10:46 | XMS_ITS | Encounter Summary ---
Author Organization [facility] Address [address] [place] [address] Care Team Providers Care Nursing Education Specialist Name Role Phone Aba Song MD Primary Care Provide r Encounter Details Date Type Department Care Team (Late st Contact Info) Description 05/11/2019 Telephone [facility] Advanced Medicine Radiation Oncology [address] [facility] [place] [address] Jose Hendricks CMA Social History Tobacco Use Types Packs/Day Years Used Date Smoking Tobacco: Former Comments Unknown Sex and Gender Information Value Date Recorded Sex Assigned at Not on file Legal Sex Female 4:56 AM RATOPRINTER Gender Identity Female 04/16/2020 9:15 AM CDT Sexual Orientation Straight 04/16/2020 9: 15 AM CDT documented as of this encounter Plan of Treatment Not on file documented as of this encounter Visit Diagnoses Not on filedocumented in this encounter Additional Health Concerns Infection Onset Date Last Indicated Resolved Time MDR gram neg/ESBL 04/22/2021 04/22/2021 documented as of this encounter Care Teams Nursing Education Specialist Relationship Specialty Start Date End Date Aba Song MD [address] [place] [address] PCP - General Emergency Medicine 03/15/20 documented as of this encounter
--- OUTSIDE RECORDS SUMMARY | 2025-07-13 10:46 | XMS_ITS | Clinical Summary ---
Author Organization [facility] Address [address] [facility] 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 Active metoprolol tartrate (LOPRESSOR) 50 mg [...] - 1-dose 75+ series) 2029 Care Teams Industrial Safety And Health Specialist Relationship Specialty Start Date End Date Zen Cunningham MD [address] [place] [phone] PCP - General Internal Medicine 05/27/17
--- OUTSIDE RECORDS SUMMARY | 2025-07-13 10:46 | XMS_ITS ---
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 No evidence of bleeding or hematoma [...] watchman via right femoral vein with 14 Kittitian sheath. No evidence of bleeding or hematoma [...]
--- OUTSIDE RECORDS SUMMARY | 2025-07-13 10:46 | XMS_ITS | Clinical Summary ---
Author Organization [facility] [address] Address [address] [place] [address] Care Team Providers Care Duct Maker Name Role Phone Aba Song MD Primary [...] 500 mg capsuleIndicatio ns:Prophylaxis, Medical Take 1 tablet/capsule (500 mg total) [...] mg/3 mL) pen injector injection 4 Active magnesium oxide (MAG-OX) 400 mg (241.3 mg elemental magnesium) tabletIndication s:Hypomagnesemia Take 1 tablet (400 mg total) by mouth daily 90 tablet 3 4 Active metoprolol tartrate (LOPRESSOR) 25 mg immediate release tablet Take 0.5 tablets (12.5 mg total) by mouth 2 (two) times a day 90 tablet 2 5 026 Active sacubitriL-valsa rtan (ENTRESTO) 49-51 mg tabletIndication s:chronic heart failure Take 1 tablet by mouth 2 (two) times a day 180 tablet 1 5 026 Active furosemide (LASIX) 20 mg tabletIndication s:Chronic systolic congestive heart failure (HCC) Take 1 tablet (20 mg total) by mouth daily 90 tablet 2 5 Active fluticasone propionate (FLONASE) 50 mcg/actuation nasal spray Administer 1 spray into each nostril daily as needed 5 Active amiodarone (PACERONE) 200 mg tabletIndication s:Ventricular Rate Control in Atrial Fibrillation Take 0.5 tablets (100 mg total) by mouth daily 45 tablet 3 5 Active amiodarone (PACERONE) 200 mg tabletIndication s:Ventricular Rate Control in Atrial Fibrillation Take 0.5 tablets (100 mg total) by mouth daily 45 tablet 3 4 025 Discontin ued(Reord er) Active Problems Problem Noted [...] 112 mcg daily. Type 2 diabetes mellitus, [facility] long-term current use of insulin [...] (01/26/2021): Added automatically from request for surgery [id number] half-way current use of amiodarone 12/19/2020 Chronic anticoagulation [...] Watchman via right femoral vein with 14 Armenian sheath. No evidence of bleeding or hematoma [...] watchman via right femoral vein with 14 Armenian sheath. No evidence of bleeding or hematoma [...] Type Department Care Team Description 05/16/2025 Telephone [facility] Cardiology at [address] [place] [address] Vinod Grijalva MD 05/15/2025 Results Follow-Up [facility] Cardiology [address] [place] [address] [place] [address] Vinod Grijalva MD NM MPI SPECT (Rest and/or Stress) Multiple Studies 05/12/2025 1:00 PM CDT Ancillary Procedure [facility] Cardiology at [address] [place] [phone] Chest heaviness; Chronic systolic (congestive) heart failure (HCC) 05/12/2025 10:15 AM CDT Ancillary Procedure [facility] Cardiology at [address] [place] [phone] Chest heaviness 05/11/2025 Telephone [facility] Cardiology at [address] [place] [phone] Vinod Grijalva MD 05/03/2025 10:15 AM CDT Office Visit [facility] Cardiology [address] [facility] [address] [place] [phone] Vinod Grijalva MD Chest heaviness (Primary Dx); Chronic systolic [...] Jesus Manuel Shereen Alcohol abuse Daughter Jeanette Crewilliam Hearing loss Daughter Jeanette Crewilliam Alcohol abuse Father Thalia Shereen Cancer Father [...] Sister Karly Zamanly COPD Sister 1 Kacey Ranajn Cancer Sister 1 Kacey Ranjan Clotting disorder Sister 1 Kacey Ranjan Diabetes Sister 1 Kacey Ranjan Cancer Sister 2 Gaye Simran Teodoro- Begum Heart disease Sister 2 Gaye Simran Teodoro- Begum COPD Sister 3 Rozina Lucio Heart disease Sister 3 Rozinadaphne Lucio COPD Sister 4 Rozinadaphne Lucio Heart disease Sister 4 Rozina Dawna Naveed Relation Name Status Comments Brother 1 Corey Carter (Age 75) Brother 2 Jesus Manuel Regan (Age 63) Daughter Jeanette Crewilliam Father Thalia Regan (Age 54) Maternal Grandmother [...] often do you attend chur ch or buddhist services? 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 Gender Identity Female 04/16/2020 9:15 AM [...] Risk Assessment 01/02/2023 01/02/2022 eGFR 06/06/2023 06/06/2022, 0805/2022, 11/20/2021, Additional history exists Covid-19 Vaccine (4 - 2024-2 6 season) 2025 06/04/2021, 12/03/2020, 11/12/2020 Influenza Vaccine (#1) 2025 , 05/31/2020, 05/27/2020, Additional history exists Lipid Panel 10/25/2025 10/25/2024, 06/0 01/2024, 06/24/2023, Additional history exists Zoster Vaccine Completed 07/13/2019, 03/08, 05/26/2013 Pneumococcal vaccine 65+ Completed 022, 06/02/2020, 05/07/2010, Additional history exists Medical Devices Implanted Type Area Geotechnical Laboratory Technician Device Identifier Shelf Expiration Date Model / Serial / Lot Guy Craniomaxillof acial [id number] Duramatrix-Onl ay Plus 7x5in Regeneration Membrane Patch Dural - S000 - [id number] Implanted:Qty: 1 on 01/26/2021 by Zak Robison MD at [facility] Graft Right: Cranial Guy Craniomaxillofaci al [id number] 07/07/2023 [id number] / 000 / [id number] Other - See Comments Other - see comments Hip Description:Right hip replac ement 2017 activ8 Intelligence [id number] Occluder Cardiovascular 20mm Dlv Sys Watchman Flx Strl - [id number] - [id number] Implanted:Qty: 1 on 11/19/2021 by Rajiv Bazan MD PhD at [facility] Other - see comments activ[employer] Intelligence 10/17/2023 [id number] / [id number] / [id number] Description:Watchman karen Farideh Craniomaxillof acial [id number] [place] [employer] Iii 20mm Low Profile Tab Cover [place] Hole - S000 - [id number] Implanted:Qty: 6 on 01/26/2021 by Zak Robison MD at [facility] Plate Right: Cranial Guy Craniomaxillofaci al [id number] / 000 / 000 Farideh Craniomaxillof acial [id number] [employer] 3 1.5mm 4mm Self Drill Axial Stability Screw Bone Latex Free - S000 - [id number] Implanted:Qty: 24 on 01/26/2021 by Zak Robison MD at [facility] Screw Right: Cranial Farideh Craniomaxillofaci al [id number] / 000 / 000 Watchman N/A: Heart Device Karen Watchman Procedure - [id number] Implanted:Qty: 1 on 11/20/2021 by Rajiv Bazan MD PhD at [facility] activ[employer] Intelligence [id number] VICE 1-3 PC / / Procedures Procedure Name Priority Date/Time Associated Diagnosis Comments TRANSTHORACIC ECHO (TTE) COMPLETE W DOPPLER/CF WO CONTRAST Routine 05/12/2025 1:41 PM CDT Chest heaviness Chronic systolic (congestive) heart failure (HCC) NM MPI SPECT (REST AND/OR STRESS) MULTIPLE STUDIES Schedule Routine, Read Routine (OP Routine) 05/12/2025 12:14 PM CDT Chest heaviness LIPID PANEL Routine 10/25/2024 5:53 PM FIBER DESIGN ENGINEER COMPREHENSIVE METABOLIC PANEL Routine 06/06/2022 exterminator termite current use of amiodarone POCT HEMOGLOBIN A1C Routine 11/06/2021 3 :48 PM FIBER DESIGN ENGINEER from Last 3 Months or Most Recently Relevant to Health Maintenance Results * TRANSTHORACIC ECHO (TTE) COMPLETE W DOPPLER/CF WO CONTRAST (05/12/2025 1:41 PM CDT) Estimated EF 35-40 % CONS SCIMAGE EF Mod BP 46 % CONS SCIMAGE Anatomical Region Laterality Modality Ultrasound 05/12/2025 12:4 0 PM CDT Narrative 05/12/2025 4:13 PM CDT [facility] Cardiology [address] , [address], [place] [address] P:[phone] P:[phone] Echocardiographic Report Patient Name: KARLY CHAO C : 1955 Study Date: 05/12/2025 12:40:42 PM Sex: F Golf Club Manager: DURAN Location: [facility] Ref Provider: VINOD GRIJALVA Height(Cm): 165 BSA: 2.21 Weight(Kg): 106.6 Heart Rate: 69 BP: 124 / 74 Quality: Good Order Provider: VINOD GRIJALVA PROCEDURES: Echocardiographic Report: Transthoracic echocardiogram with complete [...] FINDINGS: Interpretation Site: Exam was interpreted at [facility]. Left Ventricle: Mild concentric left ventricular hypertrophy. [...] Normal sinus rhythm. Electronically Signed By: Vinod Grijalva MD 05/12/2025 4:12:37 PM CDT Procedure Note Vinod Grijalva MD - 05/12/2025 [facility] Cardiology [address], [address], [place] [address] P:[phone] P:[phone] Echocardiographic Report Patient Name: KARLY CHAO C : 1955 Study Date: 05/12/2025 12:40:42 PM Sex: F Golf Club Manager: DURAN Location: [facility] Ref Provider: VINOD GRIJALVA Height(Cm): 165 BSA: 2.21 Weight(Kg): 106.6 Heart Rate: 69 BP: 124 / 74 Quality: Good Order Provider: VINOD GRIJALVA PROCEDURES: Echocardiographic Report: Transthoracic echocardiogram with complete [...] FINDINGS: Interpretation Site: Exam was interpreted at [facility]. Left Ventricle: Mild concentric left ventricular hypertrophy. [...] Normal sinus rhythm. Electronically Signed By: Vinod Grijalva MD 05/12/2025 4:12:37 PM CDT us Vinod Grijalva MD CV ECHO PROCEDURES Final Result * NM MPI SPECT (Rest and/or Stress) Multiple Studies (05/12/2025 12:14 PM CDT) Anatomical Region Laterality Modality Body N/A Electrocardiogra phy 05/12/2025 10:1 5 AM CDT Narrative 05/12/2025 3:54 PM CDT [facility] Cardiology [address], [place] [address] [address] [facility] [address], [place] [address] [address], [place] [address] P:[phone] P:[phone] MPI Imaging Report Patient Name: KARLY CHAO C : 1955 Study Date: 05/12/2025 10:15:00 AM Sex: F Tech: ANILA [facility] Location: [facility] Provider: VINOD GRIJALVA Height(Cm): 165.1 BSA: Weight(Kg): 106.6 BMI: 39.11 Order Provider: VINOD GRIJALVA PHYSICIAN: Primary Care Physician: Dr. Song. [facility] Physician: Felix Grijalva M.D. Stress Supervision: Felix Grijalva M.D. Stress Interpreting Physician: Felix Grijalva M.D. Image Interpreting Physician: Felix Grijalva M.D. PROCEDURES: Pharmacologic SPECT Report: Myocardial perfusion [...] of this study. Electronically Signed By: Vinod Grijalva MD 05/12/2025 3:54:00 PM CDT Electronically Signed By: Vinod Grijalva MD 05/12/2025 3:54:00 PM CDT Procedure Note Vinod Grijalva MD - 05/12/2025 [facility] Cardiology [address] [facility] [address] [id number] [address] [facility] [address], [place] [address] [address] [place] [address] P:[phone] P:[phone] MPI Imaging Report Patient Name: KARLY CHAO C : 1955 Study Date: 05/12/2025 10:15:00 AM Sex: F [facility] Provider: VINOD GRIJALVA Height(Cm): 165.1 BSA: Weight(Kg): 106.6 BMI: 39.11 Order Provider: VINOD GRIJALVA PHYSICIAN: Primary Care Physician: Dr. Song. [facility] Physician: Felix Grijalva M.D.Stress Supervision: Felix Grijalva M.D. Stress Interpreting Physician: De Flores Image Interpreting Physician: Felix Grijalva M.D. PROCEDURES: Pharmacologic SPECT Report: Myocardial perfusion [...] of this study. Electronically Signed By: Vinod Grijalva MD 05/12/2025 3:54:00 PM CDT Electronically Signed By: Vinod Grijalva MD 05/12/2025 3:54:00 PM CDT Vinod Grijalva MD IMG NM PROCEDURES Final R esult * Lipid panel (10/25/2024 5:53 PM FIBER DESIGN ENGINEER) Pathologist [facility] SCRIBED Cholesterol, Total 111 <200 EXTERNAL LAB [...] = 60 EXTERNAL LAB Blood 06/06/2022 Vinod Grijalva MD LAB BLOOD ORDERABLES Edit ed Result - Final EXTERNAL LAB * (ABNORMAL) POCT hemoglobin A1c (11/06/2021 3:48 PM FIBER DESIGN ENGINEER) Hgb A1C, POC 6.7(H) 4.0 - 5.6 % [facility] Est Average Gluc POC 146 mg/dL [facility] Comment: The ADA recommends reporting an estimated Average Glucose (eAG) with all Hemoglobin A1c results using the equation derived from a study of 507 normal and diabetic adults. Minority populations were underrepresented and children were not included. (Diabetes Care 31:9205-1872, 2008). The eAG is not equivalent to a fasting glucose. Blood 11/06/2021 3:48 PM FIBER DESIGN ENGINEER 11/06/2021 3:48 PM FIBER DESIGN ENGINEER Rajiv Bazan MD PhD POINT OF CARE TEST ORDERAB LES Final Result [facility] Department [place] [address] from Last 3 Months or Most Recently Relevant to Health Maintenance Additional Health Concerns Infection Onset Date Last Indicated MDR gram neg/ESBL 04/22/2021 04/22/2021 Insurance MEDICARE FOR LIFE MEDICARE [place] [address] [facility] FOR LIFE Advance Directives For more information, please contact: [phone] * Full Code (Latest Code Status on File) Date Activated Date Inactivated Comments 11/19/2021 6:44 PM 11/20/2021 4:46 PM * Full Code Date Activated Date Inactivated Comments 04/21/2021 6:06 AM 04/23/2021 5:55 PM * Full Code Date Activated Date Inactivated Comments 01/26/2021 5:52 AM 02/07/2021 8:57 PM Care Teams Duct Maker Relationship Specialty Start Date End Date Aba Song MD [address] [place] [address] PCP - General Emergency Medicine 03/15/20
--- OUTSIDE RECORDS SUMMARY | 2025-07-13 10:46 | XMS_ITS | Encounter Summary ---
Author Organization [facility] Healthcare Address [address] [place] [address] Care Team Providers Care Tape Rules Printing Machine Operator Name Role Phone Aba Song MD Primary Care Provide r Encounter Details Date Type Department Care Team (Late st Contact Info) Description 05/15/2025 Results Follow-Up [facility] Cardiology [address] [facility] [address] [address] Richard Collier MD [address] [facility] [address] [place] [address] NM MPI SPECT (Rest and/or [...] often do you attend chur ch or confucianist services? 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 Gender Identity Female 04/16/2020 9:15 AM CDT Sexual Orientation Straight 04/16/2020 9: 15 AM CDT documented as of this encounter Plan of Treatment Not on file documented as of this encounter Visit Diagnoses Not on filedocumented in this encounter Additional Health Concerns Infection Onset Date Last Indicated Resolved Time MDR gram neg/ESBL 04/22/2021 04/22/2021 documented as of this encounter Care Teams Tape Rules Printing Machine Operator Relationship Specialty Start Date End Date Aba Song MD [address] [place] [address] PCP - General Emergency Medicine 03/15/20 documented as of this encounter
== END 2025-07-12 11:06 | disposition home or self-care (01) ==
LOC: ANHLAB 11:07
PROVIDERS: PCP Emergency Medicine; Visit Provider Nurse Practitioner Family
DX: E11.9 Type 2 diabetes mellitus without complications (principal)
CPT/HCPCS: 36415; 84439; 84443

== ENCOUNTER 2025-08-09 08:00 | Outpatient (CLI) | payer MEDICARE, OTHER, SELFPAY ==
--- OUTSIDE RECORDS SUMMARY | 2022-06-20 11:39 | XMS_ITS | Encounter Summary ---
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 Procedures Pulmonary Function Test -External Richard Collier MD [address] [facility] [address] [place] [address], [address] [address] Phone: tel: fax: Referral ID Status Reason Start Date Expiration Date Visits Re quested Visits Authorized [id number] Closed 05/26/2022 06/25/2023 1 1 Reason for Visit * Procedure (Routine) - Closed Specialty Diagnoses / Procedures Referred By Jolene heart Referred To Contact Diagnoses 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 Procedures Pulmonary Function Test -External Richard Collier MD [address] [facility] [address], [address] [address] Phone: tel: fax: Referral ID Status Reason Start Date Expiration Date Visits Re quested Visits Authorized [id number] Closed 05/26/2022 06/25/2023 1 1 Encounter Details Date Type Department Care Team (Latest Contact Info) Description 06/20/2022 12:39 PM CDT Hospital Encounter [facility] Medicine PFT Lab 10 [facility] [address] [place] [address] 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 Never 01/29/2021 Do you belong to any clubs o r organizations such as moravian groups, unions, fraternal or athletic groups, or [...] place to sleep or slept in a snf (including now)? 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 SHIFT SUPERVISOR Gender Identity Female 04/16/2020 9:15 AM CDT Sexual Orientation Straight 04/16/2020 9: 15 AM CDT documented as of this encounter Functional Status * BP Location Answer Date of Assessment Author Left arm 08/07/2025 8:18 AM OPERATION SHIFT SUPERVISOR Brielle Choi MA * BP Location Answer Date of Assessment Author Left arm 08/07/2025 8:18 AM Brielle Barnes MA documented as of this encounter Plan of Treatment Not on file documented as of this encounter Procedures Procedure Name Priority Date/Time Associated Diagnosis Comments PULMONARY FUNCTION TEST (PFT) Routine 06/20/2022 1:44 PM CDT 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 documented in this encounter Results * Pulmonary Function Test - (06/20/2022 1:44 PM CDT) FVC PRE 2.90 L [facility] FVC %PRE PRED 100 % [facility] FEV1 PRE 2.45 L [facility] FEV1 %PRE PRED 108 % [facility] FEV1/FVC PRE 84.6 % [facility] FRC PL PRE 2.93 L [facility] FRC PL %PRE PRED 103 % [facility] RV PRE 2.35 L [facility] RV %PRE PRED 111 % [facility] TLC PRE 5.35 L [facility] TLC %PRE PRED 107 % [facility] DLCO PRE 14.5 ml/min/mmH g [facility] DLCO %PRE PRED 75 % [facility] Anatomical Region Laterality Modality PFT 06/20/2022 12:5 1 PM CDT Narrative 06/24/2022 7:45 AM CDT PFT performed at:->External us Richard Collier MD PFT ORDERABLES Final Res ult documented in this encounter Visit Diagnoses Diagnosis [facility] current use of amiodarone documented in this encounter Additional Health Concerns Infection Onset Date Last Indicated Resolved Time MDR gram neg/ESBL 04/22/2021 04/22/2021 documented as of this encounter Care Teams Technical Editor Relationship Specialty Start Date End Date Aba Song MD [address] [place] [address] PCP - General Emergency Medicine 03/15/20 documented as of this encounter
--- NOTE | ~2025-08-09 | XR_ITS ---
XR skull <4V 08/09/2025 08:34 Indication: MR clearance Procedure: 3 views of the skull Comparison: No prior studies for comparison. Findings: There is a right-sided craniotomy defect with 6 side plates and screws. There is metallic dental hardware involving the mandible. No acute fracture or traumatic malalignment. Orbits are grossly intact. Impression: 1: Metallic hardware involving right craniotomy defect and mandible. Reviewed, dictated and finalized at location I. C CONSULTANT Impression: 1: Metallic hardware involving right craniotomy defect and mandible.
--- NOTE | ~2025-08-09 | MR_ITS ---
EXAMINATION: MR lumbar spine wo con DATE: 08/09/2025 09:02 INDICATION: Low back pain, unspecified. TECHNIQUE: Magnetic resonance imaging (MRI) of the lumbar spine was performed without intravenous contrast. COMPARISON: Lumbar spine radiograph 02/27/2025 FINDINGS: There is 14 degrees levoscoliosis of lumbar spine. Vertebral body heights are normal. There is mildly decreased disc height at L2-L3. The distal spinal cord signal intensity is normal. The conus medullaris is at L1. The following disc levels are specifically discussed: L1-L2: The disc does not extend beyond the endplate margin. There is moderate bilateral facet joint osteoarthritis. There is no neural foraminal stenosis. There is no central canal stenosis. L2-L3: The disc is bulging. There is severe bilateral facet joint osteoarthritis. There is mild lateral neural foraminal stenosis. There is no central canal stenosis. L3-L4: There is a left foraminal protrusion. There is severe bilateral facet joint osteoarthritis. There is mild left neural foraminal stenosis. There is no central canal stenosis. L4-L5: There is a left foraminal protrusion with annular fissure. There is severe bilateral facet joint osteoarthritis. There is mild bilateral neural foraminal stenosis. There is no central canal stenosis. L5-S1: The disc does not extend beyond the endplate margin. There is severe bilateral facet joint osteoarthritis. There is no neural foraminal stenosis. There is no central canal stenosis. IMPRESSION: 1. Mild lumbar spondylosis. 2. Lumbar levoscoliosis. Reviewed, dictated and finalized at location E. FIC ATTENDANT
--- OUTSIDE RECORDS SUMMARY | 2025-08-09 08:05 | XMS_ITS | Clinical Summary ---
Author Organization [facility] Address [address] [place] [address] Care Team Providers Care Pharmacy Care Coordinator Name Role Phone Unavailable Primary Care Provider [...]
--- OUTSIDE RECORDS SUMMARY | 2025-08-09 08:05 | XMS_ITS | Clinical Summary ---
Author Organization [facility] Address [address] [place] [address] Phone Care Team Providers Care Space And Missile Operations Name Role Phone Zen Cunningham MD Primary Care Provider [phone] Allergies Active Allergy Reactions Criticality Noted Date [...] tablet Take 112 mcg by mouth daily twist maker. Active metoprolol tartrate (LOPRESSOR) 50 mg tablet [...] Years Used Date Smoking Tobacco: Former Cigarettes 20 0 01/06/1972 - 01/06/1992 Smokeless Tobacco: Never [...] - 1-dose 75+ series) 2029 Care Teams Space And Missile Operations Relationship Specialty Start Date End Date Zen Cunningham MD [address] [place] [address] PCP - General Internal Medicine 05/27/17
--- OUTSIDE RECORDS SUMMARY | 2025-08-09 08:05 | XMS_ITS ---
Author Organization [facility] [address] Address [address] [place] [address] Care Team Providers Care Dental Internship Name Role Phone Aba Song MD Primary [...] mcg daily. Type 2 diabetes mellitus, [facility] long-term current use of insulin 04/23/2021 Assessment [...] (01/26/2021): Added automatically from request for surgery [id number] long term care phlebotomist current use of amiodarone 12/19/2020 Chronic anticoagulation [...]
--- OUTSIDE RECORDS SUMMARY | 2025-08-09 08:05 | XMS_ITS | Encounter Summary ---
Author Organization [facility] Healthcare Address [address] [place] [address] Care Team Providers Care Shaft Tender Name Role Phone Aba Song MD Primary Care Provide r Encounter Details Date Type Department Care Team (Late st Contact Info) Description 05/11/2019 Telephone [facility] Advanced Medicine Radiation Oncology [address] [place] [address] Jose Hendricks CMA Social History Tobacco Use Types Packs/Day Years Used Date Smoking Tobacco: Former Comments Unknown Sex and Gender Information Value Date Recorded Sex Assigned at Not on file Legal Sex Female 4:56 AM 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 AX SOLUTION 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
--- OUTSIDE RECORDS SUMMARY | 2025-08-09 08:06 | XMS_ITS | Clinical Summary ---
Author Organization [facility] [place] [address] Address [address] [place] [address] Care Team Providers Care Functional Mental Disability Teacher Name Role Phone Aba Song MD Primary Care Provide r Allergies Active Allergy Reactions Criticality Noted Date Comments Adhesive Rash Medium 10/13/2022 Lisinopril Hives High 06/01/2017 Medications ProAir HFA 90 mcg/actuation inhalerIndicati ons:Acute Asthma Attack Inhale 1 puff as needed 03/14/20 20 Active sertraline (ZOLOFT) 25 mg tabletIndicatio ns:depression Take 1 tablet (25 mg total) by mouth every morning 01/23/20 20 Active gabapentin (NEURONTIN) 100 mg capsuleIndicati ons:Neuropathic Pain Take 1 capsule (100 mg total) by mouth 3 (three) times a day 04/09/20 20 Active Synthroid 112 mcg tabletIndicatio ns:hypothyroidi sm Take 1 tablet (112 mcg total) by mouth nightly 03/19/20 20 Active atorvastatin (LIPITOR) 20 mg tabletIndicatio ns:hyperlipidem ia Take 1 tablet (20 mg total) by mouth every morning 01/11/[address] (PROTONIX) 20 mg EC tabletIndicatio ns:Stress Ulcer Prophylaxis Take 1 tablet (20 mg total) by mouth every morning 01/11/20 20 Active docusate sodium (COLACE) 100 mg capsuleIndicati ons:constipatio n,Stool Softener Take 1 capsule (100 mg total) by mouth 2 (two) times a day 02/07/20 21 Active metFORMIN (GLUCOPHAGE) 1,000 mg tabletIndicatio ns:type 2 diabetes mellitus Take 1 tablet (1,000 mg total) by mouth 2 (two) times a day with meals Active cranberry 500 mg capsule Take 500 mg by mouth every morning Active mecobalamin, vitamin B12, (B12 Active) 1,000 mcg tablet,chewable Indications:Pre vention of Vitamin B12 Deficiency Take 1,000 mcg by mouth every morning Active amoxicillin 500 mg capsuleIndicati ons:Prophylaxis , Medical Take 1 tablet/capsul e (500 mg total) by mouth as needed Dental work 08/21/20 21 Active Sure Comfort Pen Needle 30 gauge x 5/16 needle 10/07/19 22 Active insulin glargine (insulin glargine) 100 unit/mL vial for injectionIndica tions:Diabetes Mellitus Inject 50 Units under the skin daily after lunch 11/21/19 22 Active FeroSuL 325 mg (65 mg iron) tablet Take 1 tablet (325 mg total) by mouth daily with breakfast 10/06/19 23 Active Ozempic 1 mg/dose (4 mg/3 mL) pen injector injection 02/23/20 24 Active metoprolol tartrate (LOPRESSOR) 25 mg immediate release tablet Take 0.5 tablets (12.5 mg total) by mouth 2 (two) times a day 90 tablet 2 12/20/19 25 026 Active sacubitriL-vals gia (ENTRESTO) 49-51 mg tabletIndicatio ns:chronic heart failure Take 1 tablet by mouth 2 (two) times a day 180 tablet 1 02/28/20 25 026 Active furosemide (LASIX) 20 mg tabletIndicatio ns:Chronic systolic congestive heart failure (HCC) Take 1 tablet (20 mg total) by mouth daily 90 tablet 2 03/20/20 25 Active fluticasone propionate (FLONASE) 50 mcg/actuation nasal spray Administer 1 spray into each nostril daily as needed 11/10/19 25 Active amiodarone (PACERONE) 200 mg tabletIndicatio ns:Ventricular Rate Control in Atrial Fibrillation Take 0.5 tablets (100 mg total) by mouth daily 45 tablet 3 07/10/20 25 Active magnesium oxide (MAG-OX) 400 mg (241.3 mg elemental magnesium) tabletIndicatio ns:Hypomagnesem ia Take 1 tablet (400 mg total) by mouth daily 90 tablet 3 07/24/20 25 Active aspirin 81 mg enteric coated tablet Take 1 tablet (81 mg total) by mouth daily Active clopidogreL (PLAVIX) 75 mg tablet Take 1 tablet (75 mg total) by mouth daily Active aspirin 325 mg tablet Take 1 tablet (325 mg total) by mouth daily 025 Discontinued magnesium oxide (MAG-OX) 400 mg (241.3 mg elemental magnesium) tabletIndicatio ns:Hypomagnesem ia Take 1 tablet (400 mg total) by mouth daily 90 tablet 3 08/01/20 24 025 Discontinued(R eorder) Active Problems Problem Noted Date Diagnosed Date Morbid (severe) obesity due to excess calories 0 01/27/2024 Body mass index 40.0-44.9, adult (CMS/FORMERLY [facility]) 01/26 Chest heaviness 05/26/2022 Left leg [...] (01/26/2021): Added automatically from request for surgery [id number] 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 current use of amiodarone 12/19/2020 Chronic [...] Watchman via right femoral vein with 14 Trinidadian sheath. No evidence of bleeding or hematoma [...] watchman via right femoral vein with 14 Trinidadian sheath. No evidence of bleeding or hematoma on exam. - Currently in normal sinus rhythm, continue amiodarone 200 mg daily and apixaban 5 mg b.i.d. - Start aspirin 81 mg daily, TTE and chest x-ray in the AM - Monitor on Telemetry - Follows with Dr Russ Malignant neoplasm of breast 05/02/2009 CASTRO (dyspnea on exertion) Encounters Date Type Department Care Team Description 08/07/2025 8:30 AM CUSTODY OFFICER Office Visit [facility] Cardiology [address] [place] [address] Kacey Han NP Coronary artery disease involving ute coronary artery of ute heart without angina pectoris (Primary Dx); Presence of stent in coronary artery; Ischemic cardiomyopathy; Chronic systolic (congestive) heart failure (HCC); Paroxysmal atrial fibrillation (HCC); 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 current use of amiodarone; Presence of Watchman left atrial appendage closure device; Morbid (severe) obesity due to excess calories (E66.01); Body mass index [BMI] 39.0-39.9, adult (Z68.39) 05/16/2025 Telephone [facility] Cardiology at [address] [place] [phone] Vinod Collier MD 05/15/2025 Results Follow-Up [facility] Cardiology [address] [facility] [address] [facility] [address] [place] [phone] Vinod Collier MD [place] MPI SPECT (Rest and/or Stress) Multiple Studies 05/12/2025 1:00 PM CDT Ancillary Procedure [facility] Cardiology at [address] [place] [address] Chest heaviness; Chronic systolic (congestive) heart failure (HCC) 05/12/2025 10:15 AM CDT Ancillary Procedure [facility] Cardiology at [address] [place] [address] Chest heaviness 05/11/2025 Telephone [facility] Cardiology at [address] [place] [address] Vinod Collier MD from Last 3 Months Surgical History [...] Cancer (HCC) 04/2009 Depression 2001 Diabetes mellitus 1994 Hypertension 1994 Menstrual problem [...] Del Castillogerly COPD Sister 1 Kacey Ranjan Cancer Sister 1 Kacey Ranjan Clotting disorder Sister 1 Kacey Ranjan Diabetes Sister 1 Kacey Ranjan Cancer Sister 2 Gaye Simran Teodoro- Begum Heart disease Sister 2 Gaye Simran Teodoro- Begum COPD Sister 3 Rozina Lucio Heart disease Sister 3 Rozina Lucio COPD Sister 4 Rozinadaphne Lucio Heart disease Sister 4 Rozina Toney Naveed Relation Name Status Comments Brother 1 Corey Carter (Age 75) Brother 2 Jesus Manuel Shereen (Age 63) Daughter Jeanette Crep Father Thalia Shereen (Age 54) Maternal Grandmother [place] Hinkle Mother Elizabeth Shereen (Age 73) Mother's Brother 1 Gene Hinkle Alive Mother's Brother 2 Teodoro Hinkle Alive Mother's Brother 3 Olrando Hinkle Alive Mother's Sister Karly Baggerly Alive Sister 1 Kacey Ranjan Sister 2 Gaye Simran Teodoro- Begum Sister 3 Rozina Lucio Sister 4 Rozina Lucio Alive Social History Tobacco Use Types Packs/Day [...] often do you attend chur ch or gnosticism services? Never 01/29/2021 Do you belong to any clubs o r organizations such as episcopalian groups, unions, fraternal or athletic groups, or [...] on file Legal Sex Female 4:56 AM CUSTODY OFFICER Gender Identity Female 04/16/2020 9:15 AM CDT Sexual Orientation Straight 04/16/2020 9: 15 AM CDT Last Filed Vital Signs Vital Sign Reading Time Taken Comments Blood Pressure 118/70 08/07/2025 8:18 AM CUSTODY OFFICER Pulse 70 08/07/2025 8:18 AM CUSTODY OFFICER Temperature 37 C (98.6 F) 05/05/2022 10:59 AM CDT Respiratory Rate 29 01/02/2022 10:40 AM CDT Oxygen Saturation 96% 08/07/2025 8:18 AM CUSTODY OFFICER Inhaled Oxygen Concentration - - Weight 107.5 kg (237 lb) 08/07/2025 8:18 AM CUSTODY OFFICER Height 165.1 cm (5' 5) 08/07/2025 8:18 AM CUSTODY OFFICER Body Mass Index 39.44 08/07/2025 8:18 AM CUSTODY OFFICER Plan of Treatment Health Maintenance Due Date [...] 11/12/2020 Influenza Vaccine (#1) 2025 , 05/31/2020, 06/21/2018, Additional history exists Pneumococcal vaccine 65+ (3 of 3 - PCV20 or PCV21) 06/02/2025 06/02/2020, 05/07/2010 Lipid Panel 10/25/2025 10/25/2024, 01/2024, 06/24/2023, Additional history exists Zoster Vaccine Completed 07/13/2019, 03/08, 05/26/2013 Medical Devices Implanted Type Area Cover Inspector Device Identifier Shelf Expiration Date Model / Serial / Lot Farideh Craniomaxillof acial [id number] Duramatrix-Onl ay Plus 7x5in Regeneration Membrane Patch Dural - S000 - [id number] Implanted:Qty: 1 on 01/26/2021 by Zak Robison MD at [facility] Graft Right: Cranial Deaver Craniomaxillofaci al [id number] 07/07/2023 [id number] / 000 / [id number]? [id number] Other - See Comments Other - see comments Hip Description:Right hip replac ement 2017 [employer] Ninoska [id number] Occluder Cardiovascular 20mm Dlv Sys Watchman Flx Strl - [id number] - [id number] Implanted:Qty: 1 on 11/19/2021 by Rajiv Bazan MD PhD at [facility] Other - see comments [employer] Ninoska 10/17/2023 [id number] / [id number] / [id number] Description:Watchman karen Deaver Craniomaxillof acial [id number] [place] Neuro Iii 20mm Low Profile Tab Cover [place] - S000 - [id number] Implanted:Qty: 6 on 01/26/2021 by Zak Robison MD at [facility] Plate Right: Cranial Farideh Craniomaxillofaci al [id number] / 000 / 000 [place]aver Craniomaxillof acial [id number] [place] Neuro 3 1.5mm 4mm Self Drill Axial Stability Screw Bone Latex Free - S000 - [id number] Implanted:Qty: 24 on 01/26/2021 by Zak Robison MD at [facility] Screw Right: Cranial Farideh Craniomaxillofaci al [id number] / 000 / 000 Watchman N/A: Heart Device Karen Watchman Procedure - [id number] Implanted:Qty: 1 on 11/20/2021 by Rajiv Bazan MD PhD at [facility] ExtraFootie WMPERPROCDE VICE 1-3 PC / / Procedures Procedure Name Priority Date/Time Associated Diagnosis Comments TRANSTHORACIC ECHO (TTE) COMPLETE W DOPPLER/CF WO CONTRAST Routine 05/12/2025 1:41 PM CDT Chest heaviness Chronic systolic (congestive) heart failure (HCC) NM MPI SPECT (REST AND/OR STRESS) MULTIPLE STUDIES Schedule Routine, Read Routine (OP Routine) 05/12/2025 12:14 PM CDT Chest heaviness LIPID PANEL Routine 10/25/2024 5:53 PM CUSTODY OFFICER COMPREHENSIVE METABOLIC PANEL Routine 06/06/2022 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 current use of amiodarone POCT HEMOGLOBIN A1C Routine 11/06/2021 3 :48 PM CUSTODY OFFICER from Last 3 Months or Most Recently Relevant to Health Maintenance Results * TRANSTHORACIC ECHO (TTE) COMPLETE W DOPPLER/CF WO CONTRAST (05/12/2025 1:41 PM CDT) Estimated EF 35-40 % CONS SCIMAGE EF Mod BP 46 % CONS SCIMAGE Anatomical Region Laterality Modality Ultrasound 05/12/2025 12:4 0 PM CDT Narrative 05/12/2025 4:13 PM CDT [facility] Card[facility] [address] , [address], [place] [address] P:[phone] P:[phone] Echocardiographic Report Patient Name: KARLY JON C : 1955 Study Date: 05/12/2025 12:40:42 PM Sex: F Chicken Cutter: DURAN Location: [facility] Ref Provider: VINOD COLLIER [...] Site: Exam was interpreted at [facility]. Left Ventricle: Mild concentric left ventricular [...] Procedure Note Vinod Collier MD - 05/12/2025 [facility] [address], [address], [place] [address] P:[phone] P:[phone] Echocardiographic Report Patient Name: KARLY JON C : 1955 Study Date: 05/12/2025 12:40:42 PM Sex: F Chicken Cutter: DURAN Location: [facility] Ref Provider: VINOD COLLIER [...] Site: Exam was interpreted at [facility]. Left Ventricle: Mild concentric left ventricular [...] AM CDT Narrative 05/12/2025 3:54 PM CDT [facility] [address], [place] [address] [address] [facility] [address], [place], [place] [id number] [address], [place] [address] P:[phone] P:[phone] MPI Imaging Report Patient Name: KARLY JON C : 1955 Study Date: 05/12/2025 10:15:00 AM Sex: F Tech: [facility] Location: [facility] Provider: VINOD COLLIER Height(Cm): 165.1 BSA: Weight(Kg): 106.6 BMI: 39.11 Order Provider: VINOD COLLIER PHYSICIAN: Primary Care Physician: Dr. Song. [facility] Physician: Felix Collier M.D. Stress Supervision: Felix [...] Procedure Note Vinod Collier MD - 05/12/2025 [facility] Card[facility] [address], [place] [address] [address] [facility] [id number], [place], [place] [id number] [address], [place] [address] P:[phone] P:[phone] MPI Imaging Report Patient Name: KARLY JON C : 1955 Study Date: 05/12/2025 10:15:00 AM Sex: F Tech: [facility] Location: [facility] Provider: VINOD COLLIER Height(Cm): 165.1 BSA: Weight(Kg): 106.6 BMI: 39.11 Order Provider: VINOD COLLIER PHYSICIAN: Primary Care Physician: Dr. Song. [facility] Physician: Felix Collier M.D.Stress Supervision: Felix Collier [...] esult * Lipid panel (10/25/2024 5:53 PM CUSTODY OFFICER) [facility] SCRIBED Cholesterol, Total 111 <200 EXTERNAL LAB SCRIBED HDL 48 >40 EXTERNAL LAB SCRIBED LDL 39 <100 EXTERNAL LAB SCRIBED Triglycerides 124 <150 EXTERNAL LAB Blood Historical Provider LAB BLOOD ORDERABLES Edit ed Result - Final EXTERNAL LAB * (ABNORMAL) Comprehensive metabolic panel (06/06/2022) Pathologist [facility] SCRIBED Sodium 145 136 - 145 mmol/L [...] (ABNORMAL) POCT hemoglobin A1c (11/06/2021 3:48 PM CUSTODY OFFICER) Hgb A1C, POC 6.7(H) 4.0 - 5.6 % [facility] Est Average Gluc POC 146 mg/dL [facility] Comment: The ADA recommends reporting an estimated Average Glucose (eAG) with all Hemoglobin A1c results using the equation derived from a study of 507 normal and diabetic adults. Minority populations were underrepresented and children were not included. (Diabetes Care 31:5811-7780, 2008). The eAG is not equivalent to a fasting glucose. Blood 11/06/2021 3:48 PM CUSTODY OFFICER 11/06/2021 3:48 PM CUSTODY OFFICER us Rajiv Bazan MD PhD POINT OF CARE TEST ORDERAB LES Final Result JESSICA ALMAZAN [facility] Department [place] [address] from Last 3 Months or Most Recently Relevant to Health Maintenance Additional Health Concerns Infection Onset Date Last Indicated MDR gram neg/ESBL 04/22/2021 04/22/2021 Insurance MEDICARE [employer] FOR LIFE MEDICARE FOR LIFE MEDICARE FOR LIFE Advance Directives For more information, please contact: [phone] * Full Code (Latest Code Status on File) Date Activated Date Inactivated Comments 11/19/2021 6:44 PM 11/20/2021 4:46 PM * Full Code Date Activated Date Inactivated Comments 04/21/2021 6:06 AM 04/23/2021 5:55 PM * Full Code Date Activated Date Inactivated Comments 01/26/2021 5:52 AM 02/07/2021 8:57 PM Care Teams Functional Mental Disability Teacher Relationship Specialty Start Date End Date Aba Song MD [address] [place] [address] PCP - General Emergency Medicine 03/15/20
== END 2025-08-09 08:01 | disposition home or self-care (01) ==
PROVIDERS: PCP Emergency Medicine; Visit Provider Nurse Practitioner Adult Health
DX: T84.298A Other mechanical complication of internal fixation device of other bones, initial encounter (principal); T84.228A Displacement of internal fixation device of other bones, initial encounter; Z18.10 Retained metal fragments, unspecified; M47.816 Spondylosis without myelopathy or radiculopathy, lumbar region; M41.86 Other forms of scoliosis, lumbar region
CPT/HCPCS: 70250; 72148